=== PATIENT | male | born 1950 | race Caucasian/White ===

== ENCOUNTER 2017-03-06 11:25 | Outpatient (RCR) | payer OTHER | END 2017-03-17 | disposition home or self-care (01) | PROVIDERS: ATTEND Orthopaedic Surgery Sports Medicine | DX: M17.12 Unilateral primary osteoarthritis, left knee (principal) ==

== ENCOUNTER 2018-11-02 09:55 | Emergency (ER) | payer MEDICARE, OTHER ==
[~2018-11-02] VITALS: Ht 177.8 cm; Wt 90.7 kg
--- NOTE | 2018-11-02 10:59 | ED Lower Extremity ---
General Chief Complaint: Lower Extremity Stated Complaint: FALL - R KNEE / R SHOULDER PAIN Nursing Triage Note: PT TO RM 4 BY WHEELCHAIR WITH COMPLAINT OF RIGHT SHOULDER AND KNEE PAIN. PT STATES HE FELL SUNDAY AFTER A DOG GOT BETWEEN HIS FEET. STATES PAIN IS INCREASING IN KNEE. Nursing Sepsis Screen: No Definite Risk Source: patient, family Exam Limitations: no limitations History of Present Illness Date Seen by Provider: November 02, 2018 Time Seen by Provider: 10:55 Initial Comments This 67-year-old white male presents after he sustained an injury to his previously injured right knee when he fell up steps 2 days ago. Patient also sustained a contusion to the right shoulder with self-limited discomfort to the area. The patient's previous right knee injury 30 years ago required orthopedic cantu rgery. The patient does not know what he injury at that time. The patient's pain is been severe enough that he is unable to partially weight- bear and crutch walk. At this time patient's pain is limited to the right knee. It is painful over the anterior aspect of the right knee. He is unable to describe any specific instability in the right knee. He has a normal strength and sensation in the right lower extremity. Allergies and Home Medications Allergies Coded Allergies: Penicillins (Verified Allergy, Unknown, 11/02/18) pantoprazole (Verified Allergy, Unknown, 11/02/18) Patient Home Medication List Home Medication List Reviewed: Yes Review of Systems Constitutional: no symptoms reported EENTM: no symptoms reported Respiratory: no symptoms reported Cardiovascular: no symptoms reported Gastrointestinal: no symptoms reported Genitourinary: no symptoms reported Musculoskeletal: see HPI, joint pain (right knee) Skin: No change in color, No rash Psychiatric/Neurological: No Symptoms Reported Past Oelwtnu-Niobxl-Qabsod Hx Past Med/Social Hx: Reviewed Nursing Past Med/Soc Hx Patient Social History Alcohol Use: Occasionally Uses Recreational Drug Use: No Smoking Status: Former Smoker Recent Foreign Travel: No Contact w/Someone Who Travel: No Recent Infectious Disease Expo: No Recent Hopitalizations: No Immunizations Up To Date Tetanus Booster (TDap): Unknown Seasonal Allergies Seasonal Allergies: No Past Medical History Surgeries: Yes Appendectomy, Orthopedic, Vasectomy Respiratory: Yes COPD Cardiac: Yes (HEART DISEASE) Neurological: Yes (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 oz. [id number]; BMI Method:Stated General Appearance: WD/WN, mild distress HEENT: normal ENT inspection Neck: normal inspection Cardiovascular: regular rate, rhythm Respiratory: lungs clear Gastrointestinal: normal bowel sounds Knees: right knee joint effusion, right knee soft tissue tenderness, right knee swelling, right knee other (there is no gross instability on very limited examination of the patient's collaterals and menisci. The patient's swelling and pain precluded an adequate exam.) Neurologic/Psychiatric: no motor/sensory deficits, normal mood/affect Skin: normal color, warm/dry Progress/Results/Core Measures Results/Orders My Orders Orders - INDY DONIS MD Oxycodone/Apap 5/325mg Tablet (Percocet (11/02/18 11:00) Knee, Right, 3 Views (11/02/18 10:53) Medications Given in ED Current Medications Medications Dose Ordered Sig/Dave Route Start Time Stop Time Status Last Admin Dose Admin Oxycodone/ Acetaminophen 2 tab ONCE ONCE PO 11/02/18 11:00 11/02/18 11:01 DC 11/02/18 11:31 2 TAB Vital Signs/I&O 11/02/18 10:23 Pulse 98 Resp 20 B/P (MAP) 120/67 (84) Pulse Ox 95 O2 Delivery Room Air Blood Pressure Mean: 84 Progress Progress Note : Time: 12:40 Progress Note X-ray demonstrated degenerative changes as well as a significant effusion nodding radiographic examination of the right knee. Patient received 50 g fentanyl with significant improvement in his pain. Patient was instructed to use walker for partial weightbearing. He was asked to employee Percocet for pain. He was asked problems with orthopedic surgeon by calling the office on Sunday for further evaluation as soon as possible. Possibility that he will require an MRI for further evaluation was discussed. Departure Impression Primary Impression: Effusion, right knee Disposition: HOME, SELF-CARE Condition: Improved Departure-Patient Inst. Decision time for Depature: 12:42 Referrals: NO,LOCAL PHYSICIAN (PCP) Primary Care Physician Patient Instructions: Ligament Injuries in the Knee (DC) Add. Discharge Instructions: Medications prescribed. Follow-up with your orthopedic surgeon as soon as possible. Walker for limited weightbearing. Return if any problems or questions All discharge instructions reviewed with patient and/or family. Voiced understanding. INDY DONIS MD November 02, 2018 10:59
[2018-11-02] MEDS ORDERED: oxyCODONE/APAP 5/325MG (PERCOCET 5) TABLET PO ONE (11:00)
--- NOTE | 2018-11-02 11:55 | Diagnostic Imaging Report ---
Indication: Fall with right knee pain AP, oblique, and lateral views of the right knee are obtained. No fracture or acute bony abnormality is seen. There is chondrocalcinosis. There is medial and lateral joint space narrowing with patellofemoral spurring and joint space narrowing. There is a joint effusion in the suprapatellar recess. IMPRESSION: Tricompartmental osteoarthritic changes as described above with evidence of joint effusion. No acute fracture visualized. There is chondrocalcinosis. Dictated by: Dictated on workstation # [id number]
[2018-11-02 12:56] VITALS: BP 126/72
== END 2018-11-02 12:56 | disposition home or self-care (01) ==
LOC: EDUNIT# 09:55 → ER 09:57
DX: M25.461 Effusion, right knee (principal); J44.9 Chronic obstructive pulmonary disease, unspecified; G20 Parkinson's disease; Z88.0 Allergy status to penicillin; Z88.8 Allergy status to other drugs, medicaments and biological substances; Z87.891 Personal history of nicotine dependence; Z90.49 Acquired absence of other specified parts of digestive tract; Z98.890 Other specified postprocedural states; Z98.52 Vasectomy status; W10.8XXA Fall (on) (from) other stairs and steps, initial encounter
CPT/HCPCS: 73562

== ENCOUNTER → 2019-10-27 | Outpatient (CLI) | payer MEDICARE, OTHER ==
--- NOTE | 2019-10-27 12:03 | Diagnostic Imaging Report ---
CT CHEST SCREENING WO TECHNIQUE: Low-dose unenhanced CT of the chest was performed according to the screening protocol. Coronal MIP and sagittal MPR reformats are created. Automatic exposure controls were utilized to keep dose as low as reasonably achievable. INDICATION: 68-year-old with 50 pack-year history smoking. COMPARISON: None available. FINDINGS: Pulmonary findings: Small focus of retained secretion in the trachea. There are multifocal areas of peribronchial wall thickening and bronchiolectasis involving all 5 lobes. Severe centrilobular emphysema is present. Centrilobular micronodules are present with areas of bronchiolectasis. There is also area of nodular spiculation in the lingula measuring approximately 9 mm in diameter (image 96, series 2). There is also a somewhat spiculated area of nodularity and architectural distortion in the right upper lung zone measuring approximately 9 mm (image 72, series 6). No pulmonary mass. Biapical subpleural scarring. Extrapulmonary findings: No axillary lymphadenopathy. No mediastinal, discrete hilar or juxtaphrenic lymphadenopathy. Heart is normal in size without pericardial effusion. Distal esophagus is normal in appearance. Normal caliber thoracic aorta. There are few scattered coronary artery calcifications. Partially imaged hypodensity in the upper pole left kidney that highly likely represents a cyst and requires no dedicated followup imaging based on this appearance. IMPRESSION: 1. Changes throughout both lungs which are likely due to sequelae of prior infection, and potentially a nontuberculous mycobacterial infection. There are 2 areas of spiculated nodularity associated with the areas of presumed postinfectious change, these are likely areas of nodular scarring. Recommend follows low-dose CT chest in 6 months to confirm stability. Lung-RADS category: 3 - Probably Benign Dictated by: Dictated on workstation # [id number]
== END ==
LOC: RAD 09:53
PROVIDERS: ATTEND Nurse Practitioner
DX: Z12.2 Encounter for screening for malignant neoplasm of respiratory organs (principal); R91.8 Other nonspecific abnormal finding of lung field; Z87.891 Personal history of nicotine dependence

== ENCOUNTER → 2019-11-28 | Outpatient (CLI) | payer MEDICARE, OTHER ==
[~2019-11-28] VITALS: Ht 177.8 cm; Wt 84.0 kg
[2019-11-28] VITALS (15 sets, daily range): BP systolic 96–113; BP diastolic 47–57
[~2019-11-28] MED LIST: ATROPINE INJECTION 1 MG/10 ML SYR (ABBOTT) ONE; NS IV 1000 ML 1,000 ML IV SCH
--- NOTE | 2019-11-28 08:35 | NUR ---
SPOKE WITH PT REPORTS TAKING HIS FLURONEF PILL AND 2 OTHERS WITH SIP OF COFFEE AT 0430,PLAN TO PROCEED WITH TILT TABLE TEST. Addendum: 11/28/19 at 1136 by TITO EPSTEIN RN alma
== END ==
LOC: CARD 08:18
PROVIDERS: ATTEND Internal Medicine Interventional Cardiology
DX: R55 Syncope and collapse (principal)
CPT/HCPCS: 93660

== ENCOUNTER 2019-12-04 17:47 | Emergency (ER) | payer MEDICARE, OTHER ==
[~2019-12-04] VITALS: Ht 177 cm; Wt 87.0 kg
--- NOTE | 2019-12-04 17:49 | NUR ---
PT ARRIVED PER EMS W CPR AND COMBITUBE IN PLACE. PT HAS SL IN R AC #20 BY EMS. PT HAS IO IN L TIBIA BY EMS. PT HAD RECIEVED SHOCK X1 AND EPI X5 PER EMS AND NARCAN. UPON ARRIVAL CPR CONT. 1753 1MG EPPI GIVEN IV. [address] WALLIS. +COLOR CHANGE, BILAT LUNG SOUNDS NOTED. 175 PULSE CHECK NO PULSE PT ASYSTOLE. COMPRESSION RESUMED. 1757 1MG EPPI GIVEN CPR CONT. 1759 PULSE CHECK ASYSTOLE, NO PULSE COMPRESSIONS RESUMED. 1800 CALCIUM CHLORIDE 1 AMP AND 1 AMP BICARB GIVEN IV. 1802 PULSE CHECK ASYSTOLE AND NO PULSE. COMPRESSION RESUMED 180 1L BOLUS NS STARTED EPPI 1MG GIVEN IV. 1805 ETCO2-26. 1807 PULSE CHECK NO PULSE, ASYSTOLE. DR MONTAÑO TIME OF 1806
[2019-12-04] MEDS ORDERED: CATHETER FLUSH 10 ML SYR IV ONE (17:52)
[2019-12-04] MEDS ORDERED: SODIUM BICARB 8.4% 50 MEQ/50 ML (ABBOTT) SYR INJ ONE (17:52)
[2019-12-04] MEDS ORDERED: CALCIUM CHLORIDE 1 GM/10 ML (IMS) SYR INJ ONE (17:52)
[2019-12-04] MEDS ORDERED: EPINEPHrine 0.1 MG/ML 10 ML (HOSPIRA) SYR IJ ONE (17:52)
--- NOTE | 2019-12-04 18:19 | ED CPR ---
HPI-CPR General Chief Complaint: Code Blue Stated Complaint: CODE BLUE Source of Information: Patient Exam Limitations: Other (orotracheally intubated) History of Present Illness Date Seen by Provider: Dec 04, 2019 Time Seen by Provider: 17:45 Initial Comments Patient suffered witnessed cardiac arrest by family at home. EMS was summonsed and arrived at roughly 1740. I gel was placed, right antecubital space IV was placed and interosseous device was placed in the left tibia. IV fluids were initiated normal saline and EMS says that he had asystole and no pulse when they arrived so they initiated CPR immediately. Family states that he was told earlier in the day by his doctor at the [facility] after some lab was drawn that his hemoglobin is 3.3 and he needed to report to the ER promptly. EMS gave a dose of Narcan with no effect.. Obtained from the [facility] showing the patient has Parkinson's. Saw Dr. Hooks last month and started on Florinef. Allergies and Home Medications Allergies Coded Allergies: Penicillins (Verified Allergy, Unknown, 11/02/18) pantoprazole (Verified Allergy, Unknown, 11/02/18) Patient Home Medication List Home Medication List Reviewed: Yes Review of Systems Review of Systems Constitutional: see HPI (patient does not contribute to history or review of systems secondary to being orotracheally intubated and ) Past Waocvma-Zumbxg-Dipghk Hx Patient Social History Type Used: Cigarettes Recent Hopitalizations: No Immunizations Up To Date Tetanus Booster (TDap): Unknown Date of Pneumonia Vaccine: Jun 29, 2017 Date of Influenza Vaccine: Mar 18, 2019 Seasonal Allergies Seasonal Allergies: No Past Medical History Surgeries: Yes Appendectomy Respiratory: Yes Sleep Apnea, COPD, Emphysema Cardiac: Yes ([place]OPE) Neurological: Yes (PARKINSONS) Parkinson's Disease Genitourinary: No Gastrointestinal: Yes Gastroesophageal Reflux, Polyps Musculoskeletal: Yes Arthritis Endocrine: No HEENT: No Cancer: No Psychosocial: No Integumentary: No Blood Disorders: No Physical Exam Vital Signs Capillary Refill : Height, Weight, BMI Height: 5'10.00" Weight: 200lbs. oz. 90.247700as; 26.57 BMI Method:Stated General Appearance: Chronically ill, Severe Distress HEENT: No Moist Mucous Membranes; Other (pupils fixed 3 mm, nonreactive) Neck: Full Range of Motion, Normal Inspection Respiratory: Respiratory Distress (severe), Other (intermediate airway device in place with tracheal leak audible with bag-valve ventilation) Cardiovascular: Other (CPR underway and no palpable pulse on pulse check) Gastrointestinal: Soft, Abnormal Bowel Sounds (absent) Neurologic/Psychiatric: Other (GCS 3T) Skin: Warm/Dry, Pallor Progress/Results/Core Measures Progress Progress Note : Time: 18:34 Progress Note Called and got a hold of Emma Reynolds, his spouse. Informed her of the situation and she gave appreciation for our efforts and said that this was not unexpected. They did not have any home arrangements predetermined. She is not awake for her son to get here from [place] he is Joe on his way. When he arrives at her house then they will come together to the ER. We did offer chaplains assistance to call them or visit with her and she declined. All questions were answered. We encouraged her to call if she had any further co ncerns. She says she will be reachable at her home phone as listed in the patient's chart. Critical Care Note Critical Care Start Time: 17:45 Stop Time: 18:07 Total Time (minutes) 22min Date of : Dec 04, 2019 Time of : 18:07 Progress Pulse check on arrival shows asystole with no pulse. Compressions were resumed. The patient had received 5 doses of epinephrine by the time they arrived. 1753: Initial intubation attempt and 1 mg epinephrine was pushed. 1754 positive color change and fogging of tube with good breath sounds bilaterally. 1756 pulse check asystole. Compressions were resumed. 1757 1 mg of epinephrine for a total of 7 mg 1759 pulse check asystole resumed compressions 1800 calcium chloride and amp of bicarbonate administered. 1802 pulse check asystole compressions resumed. 1803 1 L bolus of normal saline started for a total 2 L now. 1 mg epinephrine administered. 1806: End-tidal CO2 of 26. 2 units of O- arrived and the rapid infuser set up and infusing the second liter of normal saline. 1807 pulse check demonstrates no pulse patient still in asystole. It was decided to preserve the O- blood as these efforts were futile and the code was called. Departure Impression Primary Impression: Cardiopulmonary arrest Additional Impression: Profound anemia Qualified Codes: D64.9 - Anemia, unspecified Disposition: 20 Condition: Departure-Patient Inst. Decision time for Depature: 18:15 Patient Instructions: NO INSTRUCTIONS GIVEN MINISTERIO WALLIS J Dec 04, 2019 18:19
--- NOTE | 2019-12-04 19:22 | NUR ---
Family in room at this time.
--- NOTE | 2019-12-04 19:39 | NUR ---
Requested registration call [facility] at this time.
--- NOTE | 2019-12-04 19:50 | NUR ---
Spoke to Patti from [facility]. [facility] needs additional past medical history from family before a decision can be made regarding organ donation.
--- NOTE | 2019-12-04 20:12 | NUR ---
[facility]
[2019-12-04 21:22] VITALS: BP 0/0
--- OUTSIDE RECORDS SUMMARY | 2019-12-04 21:54 | XMS REPORT | Clinical Summary ---
Author Author [facility] Organization [facility] Address Unknown Phone Unavailable Care Team Providers Care [employer] Electrician Name Role Phone Doctor, Miscellaneous Unavailable Unavailable No Pcp, Na PCP Unavailable Source Comments Some departments are not documenting in the electronic medical record. If you d o not see the information that you expected, contact Release of Information in [facility] [employer] Information Management department at [phone] for further assistan ce in locating additional records.[facility] Allergies Not on File Medications Not on file Active Problems Not on file Social History Date Tobacco Use Types Packs/Day Years Used Never Assessed Sex Assigned at Date Recorded Not on file Industry Job Start Date Occupation Not on file Not on file Not on file Travel End Travel History Travel Start No recent travel history available. Last Filed Vital Signs Not on file Plan of Treatment Health Maintenance Due Date Last Done Comments MEDICARE ANNUAL WELLNESS 1950 VISIT DTAP/TDAP VACCINES (1 - 12/19/1967 Tdap) HEPATITIS C SCREENING 12/19/1967 PHYSICAL (COMPREHENSIVE) 12/19/1967 EXAM COLORECTAL CANCER 12/19/1999 SCREENING SHINGLES RECOMBINANT 12/19/1999 VACCINE (1 of 2) PNEUMONIA (PPSV23) 2014 VACCINE (1 of 1 - PPSV23) INFLUENZA VACCINE 03/18/2020 Results Not on filefrom Last 3 Months Insurance Type Payer Benefit Subscriber ID Effective Phone Address Plan / Dates Group Medicare MEDICARE MEDICARE xxxxxxxxxx [id number] PART A AND resent B PPO EQUITABLE LIFE & CASUALTY EQUITABLE xxxxxxx 2015-P LIFE & resent CASUALTY [id number] Advance Directives Patient [employer] Crew[employer] Explanation Type Date Recorded Advance 05/31/2015 3:40 PM Directive/DPOA
--- OUTSIDE RECORDS SUMMARY | 2019-12-04 21:54 | XMS REPORT | Continuity of Care Document ---
Author [facility] Organization [facility] Address Unknown Phone Unavailable Care Team Providers Care Billing Administrator Name Role Phone [facility] Unavailable Unavailable Problems Combined list of all problems from all Department of Defense and [facility] facilities. It does not include entries that were removed or entered in error. Problem Status Onset Date Problem Type Date of Resolution Comments Source Abnormal radiologic density Active Condition [facility] Allergic rhinitis Active Condition [facility] Anemia Active Condition [facility] Chest pain (SNOMED CT [id number]) Active Condition [facility] Chondrocalcinosis Active Condition [facility] Chronic obstructive lung disease Active Condition [facility] Coronary artery disease Active Condition [facility] Cough Active Condition [facility] Cough (SNOMED CT 72006011) Active Condition [facility] Dysarthria (SNOMED CT 2553719) Active Condition [facility] Dyspnea (SNOMED CT 258866420) Active Condition [facility] Eruption due to drug Active Condition [facility] Gastroesophageal reflux disease Active Condition [facility] Hallux valgus AND bunion Active Condition [facility] Joint pain (SNOMED CT 86210640) Active Condition [facility] Joint swelling (SNOMED CT 815121584) Active Condition [facility] Knee pain Active Condition [facility] Muscle weakness (SNOMED CT 31272054) Active Condition [facility]uropathy Active Condition [facility] Osteoarthritis Active Condition [facility] Parkinson's disease Active Condition [facility] Peripheral Neuropathy Active Condition [facility] Personal History of Exposure to Agent Golden Active Condition [facility] Polyp of colon (SNOMED CT 72164983) Active Condition [facility] Restless legs Active Condition [facility] Rheumatoid arthritis Active Condition [facility] Screening, Malignancy Active Condition [facility] Sleep apnea Active Condition [facility] Synovial cyst of popliteal space (SNOMED CT 01053466) Active Condition [facility] Tobacco dependence in remission Active Condition [facility] Tobacco use Active Condition [facility] Tremor Active Condition [facility] Unresolved Active Condition [facility] Unresolved Active Condition [facility] ICD-10-CM D64.9 Anemia, unspecified with Provider Comments: Anemia (SNOMED CT 346802614) active Diagnosis [facility] ICD-10-CM G20. Parkinson's disease with Provider Comments: Parkinson's disease ([facility] [id number]) active Diagnosis [facility] ICD-10-CM M06.9 Rheumatoid arthritis, un specified with Provider Comments: Rheumatoid arthritis ([facility] 65085072) active Diagnosis [facility] ICD-10-CM M06.09 Rheumatoid arthritis w/ o rheumatoid factor, multiple sites with Provider Comments: Seronegative RA active Diagnosis [facility] ICD-10-CM I25.10 Athscl heart disease of [place] coronary artery w/o ang pctrs with Provider Comments: Coronary artery disease ([facility] [id number]) active Diagnosis [facility] ICD-10-CM Z71.89 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 with Provider Comments: Counseling,Oth Specified active Diagnosis [facility] ICD-10-CM H26.8 Other specified cataract with Provider Comments: Other specified Cataract active Diagnosis [facility] ICD-10-CM Z13.6 Encounter for screening for cardiovascular disorders with Provider Comments: Encounter for Screening for Cardiovascular Disorders active Diagnosis [facility] ICD-10-CM M19.011 Primary osteoarthritis , right shoulder with Provider Comments: Primary osteoarthritis, right shoulder active Diagnosis [facility] ICD-10-CM J44.9 Chronic obstructive pulm onary disease, unspecified with Provider Comments: Chronic Obstructive Pulmonary Disease, unspecified active Diagnosis [facility] ICD-10-CM R91.8 Other nonspecific abnorm al finding of lung field with Provider Comments: Abnormal radiologic density (SNOMED CT 18877997) active Diagnosis [facility] ICD-10-CM R91.8 Other nonspecific abnorm al finding of lung field with Provider Comments: Abnormal Finding of Lung Field active Diagnosis [facility] ICD-10-CM H90.3 Sensorineural hearing lo ss, bilateral with Provider Comments: Sensorineural hearing loss, bilateral active Diagnosis [facility] Medications Combined list of all outpatient medications recorded within the last 15 months b y all Department of Defense and Veterans Affairs facilities, and also all patien t-reported medications. Medication Details Route Status Patient Instructions Prescription Expires Prescript ion Number Last Dispense Date Ordering Pr ovider Order Date Source ALBUTEROL SO4 0.083% INHL,3ML USE 3 MLS (1 AMPULE) IN NEBULIZER FOR INHALATION ONCE 11/16/2018 [id number] 10/17/2018 KOURTNEY DANIELSON 10/17/2018 [facility] ALBUTEROL SO4 90MCG/ACTUAT (CFC-F) INHL,ORAL,6.7GM INHALE 2 PUFFS BY ORAL INHALATION FOUR TIMES A DAY NEEDED - RINSE MOUTHPIECE FREQUENTLY TO PREVENT CLOGGING ACTIVE 04/24/2020 [id number] 10/18/2019 KOURTNEY DANIELSON 10/18/2019 [facility] ALBUTEROL SO4 90MCG/ACTUAT (CFC-F) INHL,ORAL,6.7GM INHALE 2 PUFFS BY ORAL INHALATION FOUR TIMES A DAY NEEDED - RINSE MOUTHPIECE FREQUENTLY TO PREVENT CLOGGING DISCONTINUE 04/24/2020 [id number] 04/24/2019 KOURTNEY DANIELSON 04/24/2019 [facility] BUDESONIDE 160MCG/FORMOTEROL FUM 4.5MCG/ SPRAY INHL,ORAL,10.2GM INHALE 2 PUFFS BY ORAL INHALATION TWO TI MES A DAY FOR BREATHING. SHAKE WELL. RINSE MOUTH AND SPIT AFTER EACH USE. ACTIVE 12/2019 [id number] 10/17/2019 KOURTNEY DANIELSON 04/24/2019 [facility] CALCIUM 500MG (CA CARBONATE-1.25GM) TAB TAKE ONE TABLET BY MOUTH TWO TIMES A DAY ACTIVE/SUSP 11/20/2020 [id number] 01/09/2020 KOURTNEY DANIELSON 01/09/2020 [facility] CALCIUM 500MG (CA CARBONATE-1.25GM) TAB TAKE ONE TABLET BY MOUTH TWO TIMES A DAY DISCONTINUE 01/08/2020 [id number] 10/21/2019 KOURTNEY DANIELSON 01/10/2019 [facility] CALCIUM 500MG (CA CARBONATE-1.25GM) TAB TAKE ONE TABLET BY MOUTH TWO TIMES A DAY DISCONTINUE 12/29/2018 [id number] 10/01/2018 NASH KULKARNI 10/01/2018 [facility] CARBIDOPA 25MG/LEVODOPA 100MG TAB TAKE 2 TABLETS BY MOUTH FOUR TIMES A DAY FOR PARKINSON'S DISEASE. DO NOT TAKE WITH FOOD. ACTIVE 11/24/2020 [id number] 11/27/2019 ALLEGRA HOWE 11/27/2019 [facility] CARBIDOPA 25MG/LEVODOPA 100MG TAB TAKE TWO TABLETS BY MOUTH FIVE TIMES DAILY FOR PARKINSON'S DISEASE. DO NOT TAKE WITH FOOD. DISCONTINUE 07/02/2020 [id number] 11/19/2019 KOURTNEY DANIELSON 07/03/2019 [facility] CARBIDOPA 25MG/LEVODOPA 100MG TAB TAKE 2 TABLETS BY MOUTH FIVE TIMES DAILY FOR PARKINSON'S DISEASE. DO NOT TAKE WITH FOOD. DISCONTINUED (EDIT) 06/30/2020 [id number] 07/01/2019 ALLEGRA HOWE 07/01/2019 [facility] CARBIDOPA 25MG/LEVODOPA 100MG TAB TAKE 2 TABLETS BY MOUTH FOUR TIMES A DAY FOR PARKINSON'S DISEASE. DO NOT TAKE WITH FOOD. DISCONTINUE 06/24/2020 [id number] 06/26/2019 KOURTNEY DANIELSON 06/26/2019 [facility] CARBIDOPA 25MG/LEVODOPA 100MG TAB TAKE 2 TABLETS BY MOUTH FOUR TIMES A DAY FOR PARKINSON'S DISEASE. DO NOT TAKE WITH FOOD. DISCONTINUE 12/25/2019 [id number] 05/15/2019 KOURTNEY DANIELSON 12/26/2018 [facility] CARBIDOPA 25MG/LEVODOPA 100MG TAB TAKE 2 TABLETS BY MOUTH FOUR TIMES A DAY FOR PARKINSON'S DISEASE. DO NOT TAKE WITH FOOD. DISCONTINUE 06/07/2019 [id number] 11/18/2018 ALLEGRA HOWE 06/10/2018 [facility] CHOLECALCIFEROL 25MCG (1,000UNIT) TAB TAKE TWO TABLETS BY MOUTH ONCE A DAY FOR VITAMIN D DEFICIENCY ACTIVE/SUSP 11/20/2020 [id number] 01/09/2020 KOURTNEY DANIELSON 01/09/2020 [facility] CHOLECALCIFEROL 25MCG (1,000UNIT) TAB TAKE TWO TABLETS BY MOUTH ONCE A DAY FOR VITAMIN D DEFICIENCY DISCONTINUE 12/25/2019 [id number] 10/21/2019 KOURTNEY DANIELSON 12/25/2018 [facility] CHOLECALCIFEROL 25MCG (1,000UNIT) TAB TAKE TWO TABLETS BY MOUTH ONCE A DAY FOR VITAMIN D DEFICIENCY DISCONTINUE 10/10/2018 [id number] 09/12/2018 KOURTNEY DANIELSON 10/09/2017 [facility] CLOPIDOGREL BISULFATE 75MG TAB TAKE ONE TABLET BY MOUTH ONCE A DAY TO PREVENT BLOOD CLOTS ACTIVE/SUSP 04/24/2020 [id number] 12/19/2019 KOURTNEY DANIELSON 05/25/2019 [facility] CLOPIDOGREL BISULFATE 75MG TAB TAKE ONE TABLET BY MOUTH ONCE A DAY TO PREVENT BLOOD CLOTS DISCONTINUE 06/01/2019 [id number] 03/13/2019 KOURTNEY DANIELSON 06/03/2018 [facility] DIPHENHYDRAMINE HCL 25MG CAP T GABRIELLE 1 CAPSULE BY MOUTH EVERY 6 HOURS NEEDED ACTIVE KOURTNEY DANIELSON 03/21/2017 [facility] FLUDROCORTISONE ACETATE 0.1MG TAB TAKE ONE TABLET BY MOUTH ONCE A DAY ACTIVE 11/19/2020 [id number] 11/20/2019 KOURTNEY DANIELSON 11/20/2019 [facility] FOLIC ACID 1MG TAB TAKE ONE TA BLET BY MOUTH ONCE A DAY ACTIVE KOURTNEY DANIELSON 12/29/2015 [facility] GABAPENTIN 300MG CAP TAKE 1 CA PSULE BY MOUTH 5 TIMES A DAY FOR PAIN AND TREMORS. ACTIVE 10/17/2020 [id number] 10/18/2019 KOURTNEY DANIELSON 10/18/2019 [facility] GABAPENTIN 300MG CAP TAKE ONE CAPSULE BY MOUTH FOUR TIMES A DAY FOR PAIN AND TREMORS. DISCONTINUED (EDIT) 01/08/2020 [id number] 10/14/2019 KOURTNEY DANIELSON 02/26/2019 [facility] GABAPENTIN 300MG CAP TAKE ONE CAPSULE BY MOUTH FOUR TIMES A DAY FOR PAIN AND TREMORS. DISCONTINUE 03/08/2019 [id number] 01/07/2019 KOURTNEY DANIELSON 03/07/2018 [facility] HYDROCODONE 10MG/ACETAMINOPHEN 325MG TAB TAKE ONE TABLET (10/325MG) BY MOUTH THREE TIMES A DAY NEEDED FOR PAIN CAUTION: DO NOT EXCEED 4000MG/DAY TOTAL OF ACETAMINOPHEN (APAP) FROM ALL MEDS ACTIVE 12/20/2019 [id number] 11/21/2019 KOURTNEY DANIELSON 11/21/2019 [facility] HYDROCODONE 10MG/ACETAMINOPHEN 325MG TAB TAKE ONE TABLET (10/325MG) BY MOUTH THREE TIMES A DAY NEEDED FOR PAIN CAUTION: DO NOT EXCEED 4000MG/DAY TOTAL OF ACETAMINOPHEN (APAP) FROM ALL MEDS DISCONTINUED 10/03/2019 [id number] 09/04/2019 KOURTNEY DANIELSON 09/04/2019 [facility] HYDROCODONE 10MG/ACETAMINOPHEN 325MG TAB TAKE ONE TABLET BY MOUTH THREE TIMES A DAY NEEDED FOR PAIN CAUTION: DO NOT EXCEED 4000MG/DAY TOTAL OF ACETAMINOPHEN (APAP) FROM ALL MEDS DISCONTINUED 07/26/2019 [id number] 06/26/2019 KOURTNEY DANIELSON 06/26/2019 [facility] HYDROCODONE 10MG/ACETAMINOPHEN 325MG TAB TAKE ONE TABLET BY MOUTH THREE TIMES A DAY NEEDED FOR PAIN CAUTION: DO NOT EXCEED 4000MG/DAY TOTAL OF ACETAMINOPHEN (APAP) FROM ALL MEDS DISCONTINUE 06/27/2019 [id number] 05/29/2019 KOURTNEY DANIELSON 05/29/2019 [facility] HYDROCODONE 10MG/ACETAMINOPHEN 325MG TAB TAKE ONE TABLET BY MOUTH THREE TIMES A DAY NEEDED FOR PAIN CAUTION: DO NOT EXCEED 4000MG/DAY TOTAL OF ACETAMINOPHEN (APAP) FROM ALL MEDS DISCONTINUED 05/08/2019 [id number] 04/08/2019 KOURTNEY DANIELSON 04/08/2019 [facility] HYDROCODONE 10MG/ACETAMINOPHEN 325MG TAB TAKE ONE TABLET BY MOUTH THREE TIMES A DAY NEEDED FOR PAIN CAUTION: DO NOT EXCEED 4000MG/DAY TOTAL OF ACETAMINOPHEN (APAP) FROM ALL MEDS DISCONTINUED 03/28/2019 [id number] 02/26/2019 KOURTNEY DANIELSON 02/26/2019 [facility] HYDROCODONE 10MG/ACETAMINOPHEN 325MG TAB TAKE ONE TABLET BY MOUTH THREE TIMES A DAY NEEDED FOR PAIN CAUTION: DO NOT EXCEED 4000MG/DAY TOTAL OF ACETAMINOPHEN (APAP) FROM ALL MEDS DISCONTINUED 02/06/2019 [id number] 01/07/2019 KOURTNEY DANIELSON 01/07/2019 [facility] HYDROCODONE 10MG/ACETAMINOPHEN 325MG TAB TAKE ONE TABLET BY MOUTH THREE TIMES A DAY NEEDED FOR PAIN CAUTION: DO NOT EXCEED 4000MG/DAY TOTAL OF ACETAMINOPHEN (APAP) FROM ALL MEDS DISCONTINUED 12/05/2018 [id number] 11/05/2018 KOURTNEY DANIELSON 11/05/2018 [facility] HYDROCODONE 10MG/ACETAMINOPHEN 325MG TAB TAKE ONE TABLET BY MOUTH THREE TIMES A DAY NEEDED FOR PAIN CAUTION: DO NOT EXCEED 4000MG/DAY TOTAL OF ACETAMINOPHEN (APAP) FROM ALL MEDS DISCONTINUED 10/25/2018 [id number] 09/25/2018 KOURTNEY DANIELSON 09/25/2018 [facility] HYDROCODONE 10MG/ACETAMINOPHEN 325MG TAB TAKE ONE TABLET (10/325MG) BY MOUTH THREE TIMES A DAY NEEDED FOR PAIN CAUTION: DO NOT EXCEED 4000MG/DAY TOTAL OF ACETAMINOPHEN (APAP) FROM ALL MEDS 11/16/2019 [id number] 10/18/2019 KOURTNEY DANIELSON 10/18/2019 [facility] METHOTREXATE NA 2.5MG TAB TAKE SEVEN TABLETS BY MOUTH EVERY WEEK ACTIVE 10/17/2020 [id number] 11/04/2019 KOURTNEY DANIELSON 11/04/[address] [facility] METHOTREXATE NA 2.5MG TAB TAKE SEVEN TABLETS BY MOUTH EVERY WEEK DISCONTINUE 05/09/2020 [id number] 08/16/2019 NASH KULKARNI 05/13/2019 [facility] METHOTREXATE NA 2.5MG TAB TAKE SEVEN TABLETS BY MOUTH EVERY WEEK DISCONTINUE 08/04/2019 [id number] 02/22/2019 YOU GOMEZ 10/19/2018 [facility] NORTRIPTYLINE HCL 10MG CAP PURA E 2 CAPSULES BY MOUTH AT BEDTIME NEEDED ACTIVE 04/02/2020 [id number] 11/20/2019 KOURTNEY DANIELSON 04/04/2019 [facility] NORTRIPTYLINE HCL 10MG CAP PURA E 2 CAPSULES BY MOUTH AT BEDTIME NEEDED DISCONTINUE 03/20/2019 [id number] 01/23/2019 KOURTNEY DANIELSON 03/20/2018 [facility] OMEPRAZOLE 20MG CAP,EC TAKE 1 CAPSULE BY MOUTH EVERY MORNING TO LOWER STOMACH ACID. TAKE 30 MINUTES PRIOR TO FOOD. ACTIVE 10/17/2020 [id number] 10/21/2019 KOURTNEY DANIELSON 10/21/2019 [facility] OMEPRAZOLE 20MG CAP,EC TAKE 1 CAPSULE BY MOUTH EVERY MORNING TO LOWER STOMACH ACID. TAKE 30 MINUTES PRIOR TO FOOD. DISCONTINUE 10/02/2019 [id number] 08/02/2019 KOURTNEY DANIELSON 10/01/2018 [facility] PREDNISONE 1MG TAB TAKE THREE TABLETS BY MOUTH ONCE A DAY FOR INFLAMMATION AND IMMUNE RESPONSE. TAKE WITH FOOD OR MILK. DISCONTINUE 07/23/2019 [id number] 04/24/2019 KOURTNEY DANIELSON 04/24/2019 [facility] PREDNISONE 1MG TAB TAKE FOUR T ABLETS BY MOUTH ONCE A DAY DISCONTINUED 04/22/2019 [id number] 01/24/2019 BLUE DAVIES 01/24/2019 [facility] PREDNISONE 1MG TAB TAKE FOUR T ABLETS BY MOUTH ONCE A DAY DISCONTINUED 12/29/2018 [id number] 10/01/2018 NASH KULKARNI 10/01/2018 [facility] PREDNISONE 1MG TAB TAKE THREE TABLETS BY MOUTH ONCE A DAY FOR INFLAMMATION AND IMMUNE RESPONSE. TAKE WITH FOOD OR MILK. 09/22/2019 [id number] 07/13/2019 KOURTNEY DANIELSON 07/13/2019 [facility] PREDNISONE 5MG TAB TAKE ONE TA BLET BY MOUTH ONCE A DAY WITH FOOD DISCONTINUED 08/01/2019 [id number] 09/25/2018 KOURTNEY DANIELSON 07/31/2018 [facility] ROPINIROLE HCL 1MG TAB TAKE ON E TABLET BY MOUTH AT BEDTIME ACTIVE 10/17/2020 [id number] 11/25/2019 KOURTNEY DANIELSON 11/25/[address] [facility] ROPINIROLE HCL 1MG TAB TAKE ON E TABLET BY MOUTH AT BEDTIME DISCONTINUE 12/05/2019 [id number] 09/03/2019 KRYSTAL DEJESUS D 12/10/2018 [facility] ROPINIROLE HCL 1MG TAB TAKE ON E TABLET BY MOUTH AT BEDTIME DISCONTINUE 12/13/2018 [id number] 09/12/2018 KOURTNEY DANIELSON 12/19/2017 [facility] TAMSULOSIN HCL 0.4MG CAP TAKE 1 CAPSULE BY MOUTH ONCE A DAY FOR PROSTATE. TAKE AT THE SAME TIME EACH DAY WITH FOOD. ACTIVE/SUSP 09/30/2020 [id number] 12/20/2019 KOURTNEY DANIELSON 10/01/2019 [facility] TAMSULOSIN HCL 0.4MG CAP TAKE 1 CAPSULE BY MOUTH ONCE A DAY FOR PROSTATE. TAKE AT THE SAME TIME EACH DAY WITH FOOD. DISCONTINUE 09/13/2019 [id number] 06/24/2019 TEO,LIS 09/16/2018 [facility] Allergies, Adverse Reactions, Alerts Combined list of all allergies from all Department of Defense and Veterans Affairs facilities. It does not include entries that were removed or entered in error. Substance Category R eaction Severity Reaction type Status Date Reported Comments Source PANTOPRAZOLE Propensity to adverse reactions to drug (disorder) Eruption Propensity to adverse reactions to drug (disorder) active 10/01/2018 [facility], [facility] 15 PENICILLIN Propensity to adverse r eactions to drug (disorder) Peripheral edema Propensity to adverse reactions to drug (disorder) active 07/17/2012 [facility] 15 Immunizations Combined list of: 1) all immunizations on record at all [facility] ies, and 2) all available immunizations on record at Department of Defense (Do D) facilities. Some immunizations on record at [facility] may not be included. Immunization Series Date Given Administered By Site Reaction Lot Number CVX Code Drug Cigarette Inspector Status Comments Source INFLUENZA, TRIVALENT, ADJUVANTED 04/24/2019 168 completed [facility] PNEUMOCOCCAL POLYSACCHARIDE PPV23 04/24/2019 33 completed [facility] INFLUENZA, TRIVALENT, ADJUVANTED 03/19/2018 168 completed [facility] INFLUENZA, SEASONAL, INJECTABLE, PRESERVATIVE FREE 05/29/2017 140 completed [facility] INFLUENZA, SEASONAL, INJECTABLE, PRESERVATIVE FREE 05/02/2016 140 completed [facility] INFLUENZA, SEASONAL, INJECTABLE, PRESERVATIVE FREE 03/19/2015 140 completed [facility] PNEUMOCOCCAL CONJUGATE PCV 13 03/19/2015 133 completed [facility] INFLUENZA, SEASONAL, INJECTABLE, PRESERVATIVE FREE 04/30/2014 140 completed [facility] PNEUMOCOCCAL POLYSACCHARIDE PPV23 10/21/2013 33 completed [facility] INFLUENZA, SEASONAL, INJECTABLE, PRESERVATIVE FREE 07/30/2013 140 completed [facility] INFLUENZA, UNSPECIFIED FORMULATION 07/30/2013 KOURTNEY DANIELSON 88 completed [facility] TDAP (HISTORICAL) 07/30/2013 KOURTNEY DANIELSON 115 completed [facility] INFLUENZA, UNSPECIFIED FORMULATION 07/17/2012 88 completed [facility] TDAP (HISTORICAL) 07/17/2012 115 completed [facility] Results Combined list of recent chemistry, hematology and other laboratory results going back no more than 15 months from the Department of Defense and Veterans Affairs facilities. Order Name Results Value Reference Range Date Interpretation Specimen Comments Source FERRITIN FERRITIN [MASS/VOLUME] IN S [place] OR PLASMA 6 ng/mL 22 - 275 12/04/2019 L Specimen Type: SERUM No comment entered. [facility] LIPID PROFILE(HDL,TRIG,CHOL,LDL) CHOLESTEROL [MASS/VOLUME] IN SERUM OR PLASMA 75 mg/dL 0 - 200 12/04/2019 Specimen Type: PLASMA No comment entered. [facility] LIPID PROFILE(HDL,TRIG,CHOL,LDL) TRIGLYCERIDE [MASS/VOLUME] IN SERUM OR PLASMA 38 mg/dL 0 - 150 12/04/2019 Specimen Type: PLASMA No comment entered. [facility] LIPID PROFILE(HDL,TRIG,CHOL,LDL) CHOLESTEROL IN HDL [MASS/VOLUME] IN SERUM OR PLASMA 34 mg/dL 12/04/2019 L Specimen Type: PLASMA No comment entered. [facility] LIPID PROFILE(HDL,TRIG,CHOL,LDL) CHOLESTEROL IN LDL [MASS/VOLUME] IN SERUM OR PLASMA BY CALCULATION 33 mg/dL 0 - 99.9 12/04/2019 Specimen Type: PLASMA No comment entered. [facility] TSH THYROTROPIN [UNITS/VOLUME] IN SE RUM OR PLASMA 1.51 uIU/mL 0.47 - 5.00 12/04/2019 Specimen Type: SERUM No comment entered. [facility] PROSTATIC SPECIFIC ANTIGEN(TOTAL) PROSTATE SPECIFIC AG [MASS/VOLUME] IN SERUM OR PLASMA 1.68 ng/mL 0 - 4 12/04/2019 Specimen Type: SERUM No comment entered. [facility] VITAMIN D (25-OH) 24R-HYDROXYC ALCIDIOL [MASS/VOLUME] IN SERUM OR PLASMA 36.4 ng/mL 30.0 - 96.0 12/04/2019 Specimen Type: SERUM No comment entered. [facility] FOLATE FOLATE [MASS/VOLUME] IN SERUM OR PLASMA >40.0ng/mL 7.0 - 20.0 12/04/2019 H Specimen Type: SERUM No comment entered. [facility] VITAMIN B12 COBALAMIN (VITAMIN B12) [MASS/VOLUME] IN SERUM OR PLASMA 491 pg/mL 213 - 816 12/04/2019 Specimen Type: SERUM No comment entered. [facility] C-REACTIVE PROTEIN C REACTIVE PROTEIN [MASS/VOLUME] IN SERUM OR PLASMA 9.77 mg/dL 0.0 - 0.5 12/04/2019 H Specimen Type: SERUM No comment entered. [facility] COMPREHENSIVE METABOLIC PANEL CREATININE [MASS/VOLUME] IN SERUM OR PLASMA 1.01 mg/dL 0.7 - 1.3 12/04/2019 Specimen Type: PLASMA No comment entered. [facility] COMPREHENSIVE METABOLIC PANEL UREA NITROGEN [MASS/VOLUME] IN SERUM OR PLASMA 20 mg/dL 9 - 25 12/04/2019 Specimen Type: PLASMA No comment entered. [facility] COMPREHENSIVE METABOLIC PANEL GLUCOSE [MASS/VOLUME] IN SERUM OR PLASMA 81 mg/dL 72 - 99 12/04/2019 Specimen Type: PLASMA No comment entered. [facility] COMPREHENSIVE METABOLIC PANEL SODIUM [MOLES/VOLUME] IN SERUM OR PLASMA 136 mEq/L 136 - 145 12/04/2019 Specimen Type: PLASMA No comment entered. [facility] COMPREHENSIVE METABOLIC PANEL POTASSIUM [MOLES/VOLUME] IN SERUM OR PLASMA 4.4 mEq/L 3.5 - 5.0 12/04/2019 Specimen Type: PLASMA No comment entered. [facility] COMPREHENSIVE METABOLIC PANEL CALCIUM [MASS/VOLUME] IN SERUM OR PLASMA 8.5 mg/dL 8.4 - 10.4 12/04/2019 Specimen Type: PLASMA No comment entered. [facility] COMPREHENSIVE METABOLIC PANEL PROTEIN [MASS/VOLUME] IN SERUM OR PLASMA 6.4 g/dL 6.0 - 8.6 12/04/2019 Specimen Type: PLASMA No comment entered. [facility] COMPREHENSIVE METABOLIC PANEL ALBUMIN [MASS/VOLUME] IN SERUM OR PLASMA 3.3 g/dl 3.4 - 5.0 12/04/2019 L Specimen Type: PLASMA No comment entered. [facility] COMPREHENSIVE METABOLIC PANEL BILIRUBIN.TOTAL [MASS/VOLUME] IN SERUM OR PLASMA 0.7 mg/dL 0.2 - 1.2 12/04/2019 Specimen Type: PLASMA No comment entered. [facility] METABOLIC PANEL ASPARTATE AMINOTRANSFERASE [ENZYMATIC ACTIVITY/VOLUME] IN SERUM OR PLASMA 45 U/L 5 - 34 12/04/2019 H Specimen Type: PLASMA No comment entered. [facility] ALANINE AMINOTRANSFERASE [ENZYMATIC ACTIVITY/VOLUME] IN SERUM OR PLASMA 9 U/L 8 - 40 12/04/2019 Specimen Type: PLASMA No comment entered. [facility] COMPREHENSIVE METABOLIC PANEL CHLORIDE [MOLES/VOLUME] IN SERUM OR PLASMA 100 mEq/L 98 - 107 12/04/2019 Specimen Type: PLASMA No comment entered. [facility] COMPREHENSIVE METABOLIC PANEL "CARBON DIOXIDE, TOTAL [MOLES/VOLUME] IN SERUM OR PLASMA" 21 mEq/L 22 - 31 12/04/2019 L Specimen Type: PLASMA No comment entered. [facility] [facility] MET[facility] ALKALINE PHOSPHATASE [ENZYMATIC ACTIVITY/VOLUME] IN SERUM OR PLASMA 103 U/L 40 - 150 12/04/2019 Specimen Type: PLASMA No comment entered. [facility] METABOLIC PANEL GLOMERULAR FILTRATION RATE/1.73 SQ M.PREDICTED [VOLUME RATE/AREA] IN SERUM OR PLASMA BY CREATININE- BASED FORMULA (MDRD) 73.2 12/04/2019 Specimen Type: PLASMA No comment entered. [facility] CBC & DIFF LEUKOCYTES [#/VOLUM E] IN BLOOD BY AUTOMATED COUNT 8.08 K/cmm 3.60 - 11.20 12/04/2019 Specimen Type: BLOOD Comment: PANIC VALUE CALLED AND READ BACK by Kourtney Danielson @ 0650 [facility] CBC & DIFF ERYTHROCYTES [#/VOL UME] IN BLOOD BY AUTOMATED COUNT 1.83 M/ul 4.1 - 5.7 12/04/2019 L Specimen Type: BLOOD Comment: PANIC VALUE CALLED AND READ BACK by Kourtney Danielson @ 1635 [facility] CBC & DIFF HEMOGLOBIN [MASS/VOLUME] IN BLOOD 3.3 g/dl 13.1 - 16.8 12/04/2019 LL Specimen Type: BLOOD Comment: PANIC VALUE CALLED AND READ BACK by Kourtney Danielson @ 1635 [facility] CBC & DIFF HEMATOCRIT [VOLUME FRACTION] OF BLOOD BY AUTOMATED COUNT 12.1 % 38.2 - 48.4 12/04/2019 L Specimen Type: BLOOD Comment: PANIC VALUE CALLED AND READ BACK by Kourtney Danielson @ 1635 [facility] CBC & DIFF MCV [ENTITIC VOLUME] BY A UTOMATED COUNT 66.1 fl 80.1 - 98.5 12/04/2019 L Specimen Type: BLOOD Comment: PANIC VALUE CALLED AND READ BACK by Kourtney Danielson @ 1635 [facility] CBC & DIFF MCH [ENTITIC MASS] BY AUT OMATED COUNT 18.0 pg 27.0 - 34.0 12/04/2019 L Specimen Type: BLOOD Comment: PANIC VALUE CALLED AND READ BACK by Kourtney Danielson @ 1635 [facility] CBC & DIFF MCHC [MASS/VOLUME] BY AUT OMATED COUNT 27.3 g/dl 33.0 - 36.0 12/04/2019 L Specimen Type: BLOOD Comment: PANIC VALUE CALLED AND READ BACK by Kourtney Danielson @ 1635 [facility] CBC & DIFF PLATELETS [#/VOLUME ] IN BLOOD BY AUTOMATED COUNT 578 K/cmm 150 - 400 12/04/2019 H Specimen Type: BLOOD Comment: PANIC VALUE CALLED AND READ BACK by Kourtney Danielson @ 1635 [facility] CBC & DIFF PLATELET MEAN VOLUM E [ENTITIC VOLUME] IN BLOOD BY AUTOMATED COUNT 9.5 fl 7.5 - 11.2 12/04/2019 Specimen Type: BLOOD Comment: PANIC VALUE CALLED AND READ BACK by Kourtney Danielson @ 1635 [facility] CBC & DIFF ERYTHROCYTE DISTRIB UTION WIDTH [RATIO] BY AUTOMATED COUNT 19.9 % 11.8 - 15.1 12/04/2019 H Specimen Type: BLOOD Comment: PANIC VALUE CALLED AND READ BACK by Kourtney Danielson @ [address] [place] [address] CBC & DIFF LYMPHOCYTES/100 JUAN MIGUEL KOCYTES IN BLOOD BY AUTOMATED COUNT 6.9 % 12/04/2019 Specimen Type: BLOOD Comment: PANIC VALUE CALLED AND READ BACK by Kourtney Danielson @ [address] [place] [address] CBC & DIFF NEUTROPHILS/100 JUAN MIGUEL KOCYTES IN BLOOD BY AUTOMATED COUNT 89.1 % 12/04/2019 Specimen Type: BLOOD Comment: PANIC VALUE CALLED AND READ BACK by Kourtney Danielson @ [address] [place] [address] CBC & DIFF MONOCYTES/100 LEUKO CYTES IN BLOOD BY AUTOMATED COUNT 3.2 % 12/04/2019 Specimen Type: BLOOD Comment: PANIC VALUE CALLED AND READ BACK by Kourtney Danielson @ [address] [place] [address] CBC & DIFF MONOCYTES [#/VOLUME ] IN BLOOD BY AUTOMATED COUNT 0.26 K/cmm 0.19 - 0.80 12/04/2019 Specimen Type: BLOOD Comment: PANIC VALUE CALLED AND READ BACK by Kourtney Danielson @ [address] [place] [address] CBC & DIFF NEUTROPHILS [#/VOLU ME] IN BLOOD BY AUTOMATED COUNT 7.19 K/cmm 2.10 - 8.00 12/04/2019 Specimen Type: BLOOD Comment: PANIC VALUE CALLED AND READ BACK by Kourtney Danielson @ [address] [place] [address] CBC & DIFF EOSINOPHILS [#/VOLU ME] IN BLOOD BY AUTOMATED COUNT 0.01 K/cmm 0.00 - 0.60 12/04/2019 Specimen Type: BLOOD Comment: PANIC VALUE CALLED AND READ BACK by Kourtney Danielson @ [address] [place] [address] CBC & DIFF BASOPHILS [#/VOLUME ] IN BLOOD BY AUTOMATED COUNT 0.02 K/cmm 0.00 - 0.20 12/04/2019 Specimen Type: BLOOD Comment: PANIC VALUE CALLED AND READ BACK by Kourtney Danielson @ 1635 [facility] CBC & DIFF EOSINOPHILS/100 JUAN MIGUEL KOCYTES IN BLOOD BY AUTOMATED COUNT 0.1 % 12/04/2019 Specimen Type: BLOOD Comment: PANIC VALUE CALLED AND READ BACK by Kourtney Danielson @ [address] [place] [address] CBC & DIFF BASOPHILS/100 LEUKO CYTES IN BLOOD BY AUTOMATED COUNT 0.2 % 12/04/2019 Specimen Type: BLOOD Comment: PANIC VALUE CALLED AND READ BACK by Kourtney Danielson @ 1635 [facility] CBC & DIFF LYMPHOCYTES [#/VOLU ME] IN BLOOD BY AUTOMATED COUNT 0.56 K/cmm 0.77 - 4.50 12/04/2019 L Specimen Type: BLOOD Comment: PANIC VALUE CALLED AND READ BACK by Kourtney Danielson @ 1635 [facility] CBC & DIFF IMMATURE GRANULOCYT ES [#/VOLUME] IN BLOOD BY AUTOMATED COUNT 0.04 K/cmm 0.00 - 0.05 12/04/2019 Specimen Type: BLOOD Comment: PANIC VALUE CALLED AND READ BACK by Kourtney Danielson @ 1635 [facility] CBC & DIFF IMMATURE GRANULOCYT ES/100 LEUKOCYTES IN BLOOD BY AUTOMATED COUNT 0.5 % 12/04/2019 Specimen Type: BLOOD Comment: PANIC VALUE CALLED AND READ BACK by Kourtney Danielson @ 1635 [facility] Vital Signs Combined list of inpatient and outpatient Vital Signs from all [facility] and/or [facility] medical facilities within the last 15 months. The included entries comply with the patient's data sharing authorizations. Vital Sign Value Date Comments Source SYSTOLIC BLOOD PRESSURE 99mm[H g] 08/06/2019 13:03:07 [facility] DIASTOLIC BLOOD PRESSURE 59mm[ Hg] 08/06/2019 13:03:07 [facility] PULSE OXIMETRY 93% 08/06/2019 13:03:07 [facility] WEIGHT 176.3[lb_av] 08/06/2019 13:03:07 [facility] BMI 25kg/m2 08/06/2019 13:03:07 [facility] PAIN 6 08/06 13:03:07 [facility] HEIGHT 71[in_us] 08/06/2019 13:03:07 [facility] TEMPERATURE 98.7[degF] 08/06/2019 13:03:07 [facility] PULSE 91/min 08/06/2019 13:03:07 [facility] RESPIRATION 18/min 08/06/2019 13:03:07 [facility] WEIGHT 182.5[lb_av] 04/24/2019 09:31:00 [facility] BMI 26kg/m2 04/24/2019 09:31:00 [facility] PAIN 5 04/09 13:22:00 [facility] Encounters Combined list of encounters at Department of Defense and/or Veterans Affairs (VA ) for the last 15 months. Not all VA inpatient encounters are included. The incl uded entries comply with the patient's data sharing authorizations. Location Location Details Encounter Type Encounter Number Reason For Visit Attending Provider ADM Date DC Date Status Disposition Source Outpatient Encounter [id number] _MAPID:[id number] 06/06/2018 [facility] Outpatient Encounter [id number] _MAPID:[id number] 06/06/2018 [facility] Outpatient Encounter [id number] _MAPID:e [id number] SATHYA LINDSEY [facility]/28/2018 [facility] Outpatient Encounter [id number] _MAPID:[id number] 07/01/2018 [facility] Outpatient Encounter [id number] _MAPID:e [id number] JENNIFER LINDSEY 07/31/2018 [facility] Outpatient Encounter [id number] _MAPID:e [id number] 08/01/2018 [facility] 15 OFFICE/OUT PATIENT VISIT EST [id number] ICD-10 -CM M06.9 Rheumatoid arthritis, unspecified with Provider Comments: Rheumatoid arthritis ([facility] [id number]) YOU GOMEZ 08/01/2018 [facility] Outpatient Encounter [id number] ICD-10 -CM H90.3 Sensorineural hearing loss, bilateral with Provider Comments: Sensorineural hearing loss, bilateral ANILA CRENSHAW 08/01/2018 [facility] OFFICE CON SULTATION [id number] ICD-10 -CM R91.8 Other nonspecific abnormal finding of lung field with Provider Comments: Abnormal Finding of Lung Field ELISSA AGUILAR 08/06/2018 [facility] Outpatient Encounter [id number] ICD-10 -CM R91.8 Other nonspecific abnormal finding of lung field with Provider Comments: Abnormal radiologic density (SNOMED CT [id number]) TARIQKOURTNEY 08/13/2018 [facility] Outpatient Encounter [id number] ICD-10 -CM I25.10 Athscl heart disease of [place] coronary artery w/o ang pctrs with Provider Comments: Coronary artery disease ([facility] [id number]) BALTRUSAITIS,DUSTIN L 08/16/2018 [facility] Outpatient Encounter [id number] _MAPID:e [id number] 08/22/2018 [facility] 15 OFFICE/OUT PATIENT VISIT EST [id number] ICD-10 -CM M06.9 Rheumatoid arthritis, unspecified with Provider Comments: Rheumatoid arthritis ([facility] [id number]) KOURTNEY DANIELSON 08/22/2018 [facility] Outpatient Encounter [id number] ICD-10 -CM J44.9 Chronic obstructive pulmonary disease, unspecified with Provider Comments: Chronic Obstructive Pulmonary Disease, unspecified KOURTNEY DANIELSON 08/27/2018 [facility] Outpatient Encounter [id number] _MAPID:e [id number] 09/09/2018 [facility] 15 Outpatient Encounter [id number] _MAPID:[id number] 09/09/2018 [facility] Outpatient Encounter [id number] _MAPID:e [id number] JENNIFER LINDSEY 09/12/2018 [facility] 15 Outpatient Encounter [id number] _MAPID:qgiRvnfvo71 09/17/2018 [facility] Outpatient Encounter [id number] _MAPID:kdpPzsgrf75 09/18/2018 [facility] Outpatient Encounter [id number] _MAPID:e [id number] JENNIFER LINDSEY 09/25/2018 [facility] 15 Outpatient Encounter [id number] _MAPID:[id number] 09/30/2018 [facility] OFFICE CON SULTATION [id number] _MAPID :[id number] CAMRYN CAMPO 09/30/2018 [facility] Outpatient Encounter [id number] _MAPID:e [id number] LANGJULIO 10/09/2018 [facility] 15 Outpatient Encounter [id number] _MAPID:e [id number] 10/17/2018 [facility] 15 OFFICE/OUT PATIENT VISIT EST [id number] ICD-10 -CM G20. Parkinson's disease with Provider Comments: Parkinson's disease ([facility] [id number]) KOURTNEY DANIELSON 10/17/2018 [facility] TO-EKG [id number] _MAPID :[id number] 10/17/2018 [facility] Outpatient Encounter [id number] _MAPID:[id number] 10/18/2018 [facility] Outpatient Encounter [id number] _MAPID:[id number] 10/19/2018 [facility] Outpatient Encounter [id number] _MAPID:e [id number] 10/25/2018 [facility] 15 OFFICE CON SULTATION [id number] ICD-10 -CM M19.011 Primary osteoarthritis, right shoulder with Provider Comments: Primary osteoarthritis, right shoulder AISHA WATKINS 10/25/2018 [facility] Outpatient Encounter [id number] _MAPID:e [id number] 10/25/2018 [facility] 15 Outpatient Encounter [id number] ICD-10 -CM Z13.6 Encounter for screening for cardiovascular disorders with Provider Comments: Encounter for Screening for Cardiovascular Disorders AKANKSHA CARTAGENA 10/25/2018 [facility] Outpatient Encounter [id number] _MAPID:[id number] 10/25/2018 [facility] Outpatient Encounter [id number] _MAPID:e [id number] 10/28/2018 [facility] 15 Outpatient Encounter [id number] ICD-10 -CM M06.9 Rheumatoid arthritis, unspecified with Provider Comments: Rheumatoid arthritis ([facility] [id number]) BERRY DWYER 10/30/2018 [facility] IV Outpatient Encounter [id number] ICD-10 -CM Z71.89 Other specified counseling with Provider Comments: Counseling,Oth Specified JULIO LANG 11/05/2018 [facility] Outpatient Encounter [id number] _MAPID:e [id number] JENNIFER LINDSEY 11/05/2018 [facility] 15 Outpatient Encounter [id number] ICD-10 -CM H26.8 Other specified cataract with Provider Comments: Other specified Cataract KOURTNEY DANIELSON 11/08/2018 [facility] Outpatient Encounter [id number] _MAPID:e [id number] JENNIFER LINDSEY 12/04/2018 [facility] 15 Outpatient Encounter [id number] _MAPID:[id number] 12/05/2018 [facility] Outpatient Encounter [id number] _MAPID:e [id number] JENNIFER LINDSEY 12/11/2018 [facility] 15 Outpatient Encounter [id number] _MAPID:[id number] 12/12/2018 [facility] Outpatient Encounter [id number] _MAPID:e [id number] ROSALIAJENNIFER J 12/24/2018 [facility] 15 Outpatient Encounter [id number] _MAPID:e apGyrmwu39 ROSALIAJENNIFER J 12/24/2018 [facility] 15 Outpatient Encounter [id number] _MAPID:[id number] 12/24/2018 [facility] Outpatient Encounter [id number] _MAPID:e [id number] JENNIFER LINDSEY 01/07/2019 [facility] 15 Outpatient Encounter [id number] _MAPID:e koOqyksr75 JENNIFER LINDSEY 01/07/2019 [facility] 15 Outpatient Encounter [id number] _MAPID:[id number] 01/08/2019 [facility] Outpatient Encounter [id number] _MAPID:[id number] 01/08/2019 [facility] Outpatient Encounter [id number] _MAPID:e [id number] JENNIFER LINDSEY 01/22/2019 [facility] 15 Outpatient Encounter [id number] ICD-10 -CM Z71.89 Other specified counseling with Provider Comments: Counseling,Oth Specified JULIO LANG 01/30/2019 [facility] Outpatient Encounter [id number] _MAPID:e [id number] 02/03/2019 [facility] 15 Outpatient Encounter [id number] _MAPID:e [id number] JENNIFER LINDSEY 02/25/2019 [facility] 15 Outpatient Encounter [id number] _MAPID:e [id number] ROSALIAJENNIFER Toshia 04/02/2019 [facility] 15 Outpatient Encounter [id number] ICD-10 -CM M06.9 Rheumatoid arthritis, unspecified with Provider Comments: Rheumatoid arthritis ([facility] [id number]) BERRY AVITIA Hector 04/04/2019 [facility] IV Outpatient Encounter [id number] _MAPID:e [id number] ROSALIAJENNIFER Toshia 04/08/2019 [facility] 15 Outpatient Encounter [id number] _MAPID:e mrOdsize75 ROSALIALUIS ALFREDOJENNIFER J 04/08/2019 [facility] 15 OFFICE/OUT PAT[place] VIS[place] EST [id number] _MAPID:[id number] NASH KULKARNI 04/09/2019 [facility] Outpatient Encounter [id number] _MAPID:e [id number] 04/24/2019 [facility] 15 OFFICE/OUT PATIENT VISIT EST [id number] ICD-10 -CM I25.10 Athscl heart disease of [place] coronary artery w/o ang pctrs with Provider Comments: Coronary artery disease ([facility]CT [id number]) KOURTNEY DANIELSON 04/24/2019 [facility] Outpatient Encounter [id number] _MAPID:e [id number] ROSALIAJENNIFER J 05/28/2019 [facility] 15 Outpatient Encounter [id number] _MAPID:[id number] 05/31/2019 [facility] Outpatient Encounter [id number] _MAPID:e [id number] JENNIFER LINDSEY 06/24/2019 [facility] 15 Outpatient Encounter [id number] _MAPID:hybKzeipn65 06/26/2019 [facility] Outpatient Encounter [id number] _MAPID:e [id number] JENNIFER LINDSEY 07/02/2019 [facility] 15 Outpatient Encounter [id number] _MAPID:[id number] 07/02/2019 [facility] Outpatient Encounter [id number] _MAPID:e [id number] JENNIFER LINDSEY 07/02/2019 [facility] 15 Outpatient Encounter [id number] _MAPID:e [id number] 07/10/2019 [facility] OFF[facility]/OUT PATIENT VISIT EST [id number] ICD-10 -CM M06.09 Rheumatoid arthritis w/o rheumatoid factor, multiple sites with Provider Comments: Seronegative RA NASH KULKARNI A 08/06/2019 [facility] Outpatient Encounter [id number] _MAPID:[id number] 08/08/2019 [facility] Outpatient Encounter [id number] _MAPID:e ywNxttak80 08/12/2019 [facility] 15 Outpatient Encounter [id number] _MAPID:e [id number] JENNIFER LINDSEY 09/03/2019 [facility] 15 Outpatient Encounter [id number] _MAPID:[id number] 09/24/2019 [facility] Outpatient Encounter [id number] _MAPID:e [id number] JOSE FRANCISCO SANTA 09/30/2019 [facility] 15 Outpatient Encounter [id number] _MAPID:ytnWmqooy79 10/15/2019 [facility] Outpatient Encounter [id number] ICD-10 -CM M06.9 Rheumatoid arthritis, unspecified with Provider Comments: Rheumatoid arthritis ([facility] [id number]) KOURTNEY DANIELSON 10/17/2019 [facility] Outpatient Encounter [id number] _MAPID :endRe9 11/05/2019 [facility] Outpatient Encounter [id number] _MAPID :endRe8 11/05/2019 [facility] Outpatient Encounter [id number] _MAPID:e [id number] JENNIFER LINDSEY 11/06/2019 [facility] Outpatient Encounter [id number] _MAPID :endRe6 11/19/2019 [facility] Outpatient Encounter [id number] ICD-10 -CM G20. Parkinson's disease with Provider Comments: Parkinson's disease ([facility] [id number]) KOURTNEY DANIELSON 11/20/2019 [facility] Outpatient Encounter [id number] _MAPID :endRe4 12/03/2019 [facility] Outpatient Encounter [id number] _MAPID :endRe3 12/03/2019 [facility] Outpatient Encounter [id number] _MAPID :endRe2 12/04/2019 [facility] Outpatient Encounter [id number] ICD-10 -CM D64.9 Anemia, unspecified with Provider Comments: Anemia (SNOMED CT [id number]) KOURTNEY DANIELSON 12/04/2019 [facility] Procedures No Data Provided for This Section Social History Combined list of available smoking, tobacco, and other social history on record at Department of Defense and/or Veterans Affairs facilities. The included entrie s comply with the patient's data sharing authorizations. Social History Type Response Date Comment Source Tobacco smoking status [facility] [facility] [place] 1 TO < 5 YRS 10/17/2018 [facility] History of tobacco use [facility] FORMER USER 10/17/2018 [facility] History of tobacco use TOBAC CO USER OFFERED MEDS 11/26/2017 [facility] History of tobacco use QUIT TOBACCO IN THE LAST 12 MONTHS 11/26/2017 [facility] History of tobacco use TOBAC CO MEDS OFFERED BUT DECLINED 11/26/2017 [facility] History of tobacco use TOBAC CO CESSATION REFERRAL DECLINED 11/26/2017 [facility] History of tobacco use TOBAC CO USER OFFERED MEDS 02/27/2017 [facility] History of tobacco use QUIT TOBACCO IN THE LAST 12 MONTHS 02/27/2017 [facility] History of tobacco use TOBAC CO MEDS OFFERED BUT DECLINED 02/27/2017 [facility] History of tobacco use TOBAC CO CESSATION REFERRAL DECLINED 02/27/2017 [facility] History of tobacco use CURRE NT NON-TOBACCO USER 05/02/2016 [facility] History of tobacco use CURRE NT TOBACCO USER 09/29/2015 [facility] History of tobacco use TOBAC CO OFFERED STOP SMOKING CLINIC 09/29/2015 [facility] History of tobacco use CURRE NT TOBACCO USER 03/19/2015 [facility] History of tobacco use TOBAC CO OFFERED STOP SMOKING CLINIC 03/19/2015 [facility] History of tobacco use CURRE NT NON-TOBACCO USER 01/02/2014 [facility] History of tobacco use CURRE NT TOBACCO USER 07/30/2013 [facility] History of tobacco use CURRE NT TOBACCO USER 07/17/2012 [facility] Assessment and Plan No Data Provided for This Section Plan of Care Date/Time Care Activity Care Activity Detail Facility 01/06/2020 AMBULATORY - MEDICI NE AMBULATORY - MEDICINE [facility] 12/10/2019 AMBULATORY - MEDICI NE AMBULATORY - MEDICINE [facility] Toshia Garcia [facility] 12/04/2019 AMBULATORY - MEDICI NE AMBULATORY - MEDICINE [facility] 12/04/2019 Laboratory - Chemis try Order ERYTHROCYTE SEDIMENTATION RATE 5 ML LAVE NDER [facility]LOOD [facility] 12/04/2019 Laboratory - Chemis try Order IRON-TOTAL SST GEL SERUM SP RO ASHLYN [facility] 12/04/2019 Laboratory - Chemis try Order IRON/TIBC SST GEL SERUM SP RANJEET VAHID [facility] Family History No Data Provided for This Section Advance Directives No Data Provided for This Section Functional Status No Data Provided for This Section
--- OUTSIDE RECORDS SUMMARY | 2019-12-04 21:54 | XMS REPORT | Clinical Summary ---
Author Author [facility] Address Unknown Phone Unavailable Care Team Providers Care Professor Of Vegetable Science Name Role Phone PCP Unavailable Allergies Comments Active Allergy Reactions Severity Noted Date Joint swelling Penicillins Swelling 01/06/2014 Medications End Date Status Medication Sig Dispensed Refills Start Date Active aspirin 81 MG EC tablet Take 81 mg by 0 mouth daily. Active ALBUTEROL SULFATE IN Inhale 90 mcg 0 into the lungs 4 (four) times daily as needed. 2 puffs Active budesonide-formoterol Inhale 2 0 (SYMBICORT) 80-4.5 puffs into MCG/ACT inhaler the lungs 2 (two) times daily. Active hydrocodone-acetaminophen Take 2 0 (NORCO) 5-325 MG tablets by mouth nightly as needed for Pain. Active omeprazole (PRILOSEC) 20 Take 20 mg by 0 MG capsule mouth every morning before breakfast. Active predniSONE (DELTASONE) 5 Take 5 mg by 0 MG tablet mouth daily. Active Problems Problem Noted Date Unstable angina 01/06/2014 Immunizations Name Administration Dates Next Due Influenza IIV3 PFree 07/30/2013 Pneumococcal 10/31/2013 Polysaccharide (23-valent) Social History Date Tobacco Use Types Packs/Day Years Used Never Assessed Sex Assigned at Date Recorded Not on file Industry Job Start Date Occupation Not on file Not on file Not on file Travel End Travel History Travel Start No recent travel history available. Last Filed Vital Signs Reading Time Taken Comments Vital Sign 134/73 01/07/2014 8:27 AM CDT Blood Pressure 75 01/07/2014 8:27 AM CDT Pulse 36.8 C (98.2 F) 01/07/2014 8:27 AM CDT Temperature 18 01/07/2014 8:27 AM CDT Respiratory Rate 96% 01/07/2014 8:27 AM CDT Oxygen Saturation - - Inhaled Oxygen Concentration 82.9 kg (182 lb 11.2 oz) 01/07/2014 5:12 AM CDT Weight 177.8 cm (5' 10") 01/06/2014 2:00 PM CDT Height 26.21 01/06/2014 2:00 PM CDT Body Mass Index Plan of Treatment Health Maintenance Due Date Last Done Comments Hepatitis C Screening 1950 DTaP,Tdap,and Td Vaccines 1968 (1 - Tdap) Colon Cancer Screening 12/19/1999 Zoster Recombinant 12/19/1999 Vaccine (RZV,Shingrix) (1 of 2 - SV 2 Dose Standard) Pneumo-Vaccine: 65+Yrs (1 10/31/2018 10/31/2013 of 1 - PPSV23) Influenza Vaccine (Season 02/17/2020 07/30/2013 Ended) Pneumo-Vaccine: Peds (0-5 Aged Out 10/31/2013 No l onger eligible based on patient's age to Yrs) & At-Risk Patients complete this topic (6-64 Yrs) Results Not on filefrom Last 3 Months
--- OUTSIDE RECORDS SUMMARY | 2019-12-04 21:54 | XMS REPORT ---
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 [place] [facility] [employer] [facility] Address [address] [address] Care Team Providers Care Survey Director Name Role Phone NO, LOCAL PHYSICIAN PCP Unavailable RUTHY, KAREN Unavailable Unavailable RUTHY, KAREN Unavailable Unavailable RUTHY, KARNE Unavailable Unavailable JEWELS ZACARIAS, INDY Love Unavailable Unavailable RUTHY, KAREN Unavailable Unavailable RUTHY, KAREN Unavailable Unavailable RUTHY, KAREN Unavailable Unavailable KJ ADAMS Unavailable Unavailable ZENOBIA ZACARIAS, LEANA SHAH Unavailable Unavailable MD Leslee BLISS JR PCP Unavailable Unavailable Unavailable Unavailable Unavailable Unavailable Unavailable Unavailable Allergies Normalized Allergy Reported Date of Reaction(s) Care Provider Facility Allergy Type classification allergen Allergy Onset Drug Allergy Proton Pump pantoprazole 11-02-2018 - pantoprazole INDY DONIS [facility] Via (15 sources.) Inhibitors Translations: ([id number]) MD [place] [ [facility]] [place] ([address]) Drug Allergy Penicillins Penicillins 11-02-2018 - Penicillins Royce DONIS [facility] Via (15 sources.) (antibiotic) Translations: ([id number]) MD [place] [ Penicillins] [facility] ([address]) Medications The data below is from unstructured sourcesNo medication information available.No known medications.No known medications. Problems Active Problems Problem Normalized Date Last Normalized Normalized Provider Fa cility Classification Problem(s) Recorded Problem Problem Sta tus Duration Chronic Chronic Chronic Active [facility] Via obstructive obstructive MD [place] pulmonary pulmonary [facility] - disease and disease, [place] bronchiectasis unspecified ([address]57) (3 sources.) Other Encounter for 10-28-2019 - Episodic Active KJ CHUNG [facility] Via screening for screening for , SAFIA [place] suspected malignant Hospital - conditions neoplasm of [place] (not mental respiratory (88289) disorders or organs infectious disease) (2 sources.) Other lower Other 10-28-2019 - Episodic Active KJ GRADYDANTE Y [facility] Via respiratory nonspecific , [employer] [facility] disease (2 abnormal Hospital - sources.) finding of [place] lung field ([address]) Parkinson`s Parkinson's Chronic Active INDY JEWELS , [facility] Via disease (3 disease MD [place] sources.) Hospital - [place] ([address]) Screening and Personal 10-22-2019 - Episodic Active INDY RED , [facility] Via history of history of [facility] [place] [facility] Hospital - and substance dependence [place] abuse codes (53844) (11 sources.) Osteoarthritis Unilateral Chronic Active KAREN BLISS JR N ot Available (10 sources.) primary (05657) osteoarthritis , left knee Past or Other Problems Problem Normalized Date Last Normalized Normalized Provider Fa cility Classification Problem(s) Recorded Problem Problem Sta tus Duration Residual Acquired Episodic Completed INDY JEWELS , [facility] Via codes; absence of MD [place] unclassified other Hospital - (3 sources.) specified [place] parts of ([address]) digestive tract Allergic Allergy status Episodic Completed INDY JEWELS , [facility] Via reactions (6 to other MD [place] sources.) drugs, Hospital - medicaments [place] and biological (28721) substances status Translations: [ ALLERGY STATUS TO PENICILLIN] Other Effusion, Episodic Completed INDY JEWELS , [facility] Via non-traumatic right knee MD [place] joint Hospital - disorders (3 [place] sources.) (79506) External cause Fall (on) no information no information INDY HOL COMB , [facility] Via codes: Fall (1 (from) other MD [place] source.) stairs and Hospital - steps, initial [place] encounter ([address]708) External cause Fall (on) Episodic Completed INDY JEWELS , [facility] Via codes: Fall (2 (from) other MD [place] sources.) stairs and Hospital - steps, initial [place] encounter () Residual Other no information no information INDY JEWELS , [facility] Via codes; specified MD [place] unclasstea postprocedural Hospital - (1 source.) [facility] ([address]) Residual Other Episodic Completed INDY JEWELS , [facility] Via codes; specified MD [place] unclassified postprocedural Hospital - (2 sources.) [facility] (07782) Other Pain in right Episodic Completed INDY JEWELS , [facility] Via non-traumatic knee [facility] joint Hospital - disorders (3 [place] sources.) ([address]) Contraceptive Vasectomy Episodic Completed [facility] Via and status [facility] - management (3 [place] sources.) ([address]) Procedures Procedure Normalized Procedure Procedure Result Performer Facility Date 11-02-2018 X-ray of right knee no information INDY Love JEWELS [facility] ([address]) Immunizations Normalized Immunization Date Notes Care Provider Facili ty Immunization vaccine no information LOCAL NO [facility] Via Translations: [ [facility] vaccine] ([address]84) Results The data below is from unstructured sourcesNo relevant diagnostic test, laboratory data and/or discharge summary information available.No known relevant diagnostic tests and/or laboratory data.No known r elevant diagnostic tests and/or laboratory data. Vital Signs The data below is from unstructured sources Vital Response Date/Time Pulse Rate (adult) 98 bpm (60 - 90) 11/02/2018 10:23am Respiratory Rate 20 bpm (12 - 24) 11/02/2018 10:23am O2 Sat by Pulse Oximetry 95 % (88 - 100) 11/02/2018 10:23am Blood Pressure 120/67 mm Hg 11/02/2018 10:23am Blood Pressure Mean 84 mm Hg (65 - 110) 11/02/2018 10:23am Pain Numeric Pain Scale 9 10:23am Height (Feet) 5 feet 10:23am Height (Inches) 10.00 inches 11/02/2018 10:23am Height (Calculated Centimeters) 177. 197864 cm 11/02/2018 10:23am Height Method Stated 10:23am Weight (Pounds) 200 pounds 11/02/2018 10:23am Weight (Calculated Grams) 51288.48 gm 11/02/2018 10:23am Weight (Calculated Kilograms) 90.718 475 kilograms 11/02/2018 10:23am Weight Method Stated 10:23am Capillary Refill Capillary Refill Less Than 3 Seconds 11/02/2018 10:23am Height 5 ft 10 in 2018 10:23am Weight 200 lb 11/02/2018 10:23am Body Mass Index 28.7 kg/m^2 11/02/2018 10:23am Vital Reading Result Col lection Date/Time Vital Reading Result Col lection Date/Time Interventions No Information Plan of Treatment Normalized Care Care Detail Care Activity Date Care Provider F acility Activity Patient Education NO INSTRUCTIONS no information MD KAREN BLISS JR [facility] Via GIVEN [address] (Work Phone: [facility] ) ([address]) Goals Patient Goal Desired Goal no information no information Social History Normalized Code Original Code Date Value no information no information no information Ex-smoker (find ing) Tobacco smoking status Tobacco smoking status no information Smokes tobacco daily NHIS NHIS (finding) no information no information 12-04-2019 Denies Use no information no information 12-04-2019 No no information no information 12-04-2019 Denies no information no information 12-04-2019 Current Everyda y Smoker no information no information 12-04-2019 Cigarettes Sex Assigned At Sex Assigned At no information M karolyn Functional Status The data below is from unstructured sourcesNo functional status information available.No Functional Status information availableNo Functional Status information available Mental Status The data below is from unstructured sourcesNo Mental Status Information Available Encounters Encounter Normalized Encounter Encounter Diagnosis Care Provi nicholas Organization Date Type 12-04-2019 Emergency department no information (no phone) [facility] - patient visit Hospital (no phone) 12-05-2019 11-02-2018 Emergency department no information INDY DONIS Work no organization name - patient visit Phone: 11-02-2018 11-02-2018 Emergency department no information no name no organization name - patient visit 11-02-2018 03-06-2017 Patient encounter no information no name no or ganization name - 03-17-2017 11-28-2019 Patient encounter no information (no phone) Luli rajeev [facility] (no phone) 11-28-2019 Patient encounter no information LEANA JEREZ Via [facility] (no phone) [facility] (no phone) 10-27-2019 Patient encounter no information KJ BAIG (no [facility] procedure phone) [facility] (no phone) 11-10-2018 Patient encounter no information no name no or ganization name - procedure 11-11-2018 11-06-2018 Patient encounter no information no name no or ganization name - procedure 11-07-2018 11-02-2018 Patient encounter no information no name no or ganization name procedure 11-02-2018 Patient encounter no information no name no or ganization name procedure 02-12-2017 Patient encounter no information no name no or ganization name procedure 02-08-2017 Patient encounter no information no name no or ganization name procedure 02-06-2017 Patient encounter no information no name no or ganization name procedure 02-02-2017 Patient encounter no information no name no or ganization name procedure 01-31-2017 Patient encounter no information no name no or ganization name procedure 01-25-2017 Patient encounter no information no name no or ganization name procedure 01-24-2017 Patient encounter no information no name no or ganization name procedure 01-18-2017 Patient encounter no information no name no or ganization name procedure 11-29-2016 Patient encounter no information no name no or ganization name - procedure 11-30-2016 Medical Equipment The data below is from unstructured sourcesNo Medical Equipment Information available Payers Normalized Payer Value Unknown no information ([id number]) Medicare no information Unknown [id number]) Department of [facility] no information Evaluation note Note Type Note Facility Evaluation No Assessments Information Available A scension note Via [facility] ([id number]) Advance Directives Directive Response Recor ded Date/Time Advance Directives No 10:23am Resuscitation Status Full Code 11/02/18 10:23am Advance Directive Response Recorded Date/Time Advance Directives No Ju 2019 6:48pm Resuscitation Status Full Code December 04, 2019 6:48pm Chief Complaint and Reason for Visit Chief Complaint Lower Extremity Reason for Visit [id number] Chief Complaint Code Blue Reason for Visit [id number] Discharge Instructions No hospital discharge instruction information available. Additional Source Comments This clinical document has been generated using [employer] software that has been certified by the Office of the National Coordinator for Health Information Technology (ONC 15.99.04.3023.Diam.31.00.0.173557) and the National Committee for Ramp Manager (NCQA, as an eMeasure certified technology). FOR RECORDS PERTAINING TO PATIENTS WHO ARE OR HAVE BEEN ENROLLED IN A CHEMICAL D EPENDENCY/SUBSTANCE ABUSE PROGRAM, SOME INFORMATION MAY BE OMITTED. This clinica l summary was aggregated from multiple sources. Caution should be exercised in using it in the provision of clinical care. This summary normalizes information from multiple sources, and as a consequence, information in this document may ma terially change the coding, format and clinical context of patient data. In janene tion, data may be omitted in some cases. CLINICAL DECISIONS SHOULD BE BASED ON T HE PRIMARY CLINICAL RECORDS. [email or web address] [facility]. provides no warranty or guara ntee of the accuracy or completeness of information in this document.The followi information is based on time limited clinical information
--- OUTSIDE RECORDS SUMMARY | 2019-12-04 21:55 | XMS REPORT ---
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 This section includes the names of all active insurance providers for the tita banegas Insurance Provider Type of Coverage Plan Name Start of Policy Co verage End of Policy Coverage Group Number Member ID Insurance Provider's Telephone N umber Policy Stone's Name Patient's Relationship to Policy Stone E[employer]IT[employer] LIFE [employer] CASUALTY MEDIGAP PLAN G MEDICARE SUPPLEMENT Dec PLAN G [id number] [phone] CARLOS ROMANO PATIENT MEDICARE (WNR) MEDICARE (M) PART A Dec 16, 2014 PART A [id number] CARLOS ROMANO PATIENT MEDICARE (WNR) MEDICARE (M) PART B Dec 16, 2014 PART B [id number] CARLOS ROMANO PATIENT MEDICO DENTAL INSURANCE DENTAL VISIONHEARING Dec 16, 2014 DENTAL VISIONHEAR [id number] [phone] CARLOS ROMANO PATIENT Selected Encounter This section includes the information on record at VA for the Encounter. Date/Time Encounter Type Encounter Description Reason Provider Source Sep 24, 2019 07:11 AM Outpatient Encounter ADMIN PAT ACTIVTIES (MASNO NCT) [facility] [place] [facility] Encounter Template Text not used by VA Assessments - Encounter Diagnoses No Data Provided for This Section Plan of Treatment: Future Appointments (+ 6 months) and Future Tests (+/- 45 day s) The Plan of Treatment section includes future care activities for the patient fr om all [place] treatment facilities. This section includes future appointments and fu ture orders which are active, pending or scheduled. Future Appointments This section includes appointments that were scheduled t o occur 6 months from the date of the Encounter, up to a maximum of 20 appointme nts. The data comes from all [facility]. Appointment Date/Time Appointment Type Appointment Facili ty Name October 17, 2019 09:00 AM AMBULATORY - MEDICINE [facility] October 27, 2019 09:45 AM AMBULATORY - NONE [facility] [place] Nov 20, 2019 05:00 PM AMBULATORY - MEDICINE [facility] Nov 24, 2019 11:20 AM AMBULATORY - NONE [facility] [place] Dec 02, 2019 10:30 AM AMBULATORY - NONE [facility] [place] Dec 03, 2019 12:30 PM AMBULATORY - NONE [facility] Dec 04, 2019 10:45 AM AMBULATORY - MEDICINE [facility] Dec 10, 2019 01:30 PM AMBULATORY - MEDICINE [facility] Jan 06, 2020 10:30 AM AMBULATORY - MEDICINE [facility] Active, Pending, and Scheduled Orders This section includes a listing of several types of activ e, pending, and scheduled orders, including clinic medications orders, diagnosti c test orders, procedure orders and consult orders; where the start date of th e order is 45 days before the date of the Encounter or 45 days after the date o f the Encounter. The data comes from all [facility]. Test Date/Time Test Type Test Details Facility Name Sep 03, 2019 03:01 PM Consult Order [facility] [id number] Cons Bead Wire Taper's Choice [facility] [place] Surgical Procedures: All associated to the encounter No Data Provided for This Section Lab Results: +/- 30 days of the encounter No Data Provided for This Section Vital Signs: All taken on the encounter date No Data Provided for This Section Immunizations: All administered on the encounter date No Data Provided for This Section Social History: Smoking Status (Most current) and Tobacco Use (All prior to enco unter date) No Data Provided for This Section Advance Directives: All historical and current No Data Provided for This Section Allergies and Adverse Reactions (ADRs): All historical and current Section Date Range: From patient's date of to the date document was create d. This section includes Allergies and Adverse Reactions (ADR s) on record with [place] for the patient. The data comes from a ll [place] treatment facilities. It does not list Allergies/ADRs that were removed or entered in error. Some allergies/ADRs may be reported in t he Immunization section. Allergen Event Date Event Type Reaction(s) Severity Source PANTOPRAZOLE Oct 01, 2018 Propensity to adverse reactions to drug (disorder) Eruption [facility] PENICILLIN Jul 17, 2012 Propensity to adverse reactions to drug (disorder) Peripheral edema [facility] Medications: VA dispensed (-15 months) and Non-VA Documented (Obtained Outside V A) Section Date Range: 1) prescriptions processed by a VA pharmacy in the last 15 m [facility], and 2) all medications recorded in the [place] medical record as "non-VA medic ations". Pharmacy terms refer to [place] pharmacy's work on prescriptions. VA patient s are advised to take their medications as instructed by their health care team. The data comes from all [place] treatment facilities. Glossary of Pharmacy Terms:Active = A prescription that can be filled at the local [place] pharmacy.Active: On Hold = An active prescription that will not be filled until pharmacy resolves the issue.Active: Susp = An active prescription that is not scheduled to be filled yet.Clinic Order = A medication received during a visit to a [place] clinic or emergency department (currently not available).Discontinued = A prescription stopped by a VA provider. It is no longer available to be filled. = A prescription which is too old to fill. This does not refer to the expiration date of the medication in the container. Non-VA = A medication that came from someplace other than a VA pharmacy. This may be a prescription from either the VA or other providers that was filled outside the VA. Or, it may be an over the counter (OTC), herbal, dietary supplement or sample medication.Pending = This prescription order has been sent to the Pharmacy for review and is not ready yet. Medication Name and Strength Pharmacy Term Instructions Quantity Or dered Prescription Expires Prescription Number Last Dispense Date Ordering Provider Facility ALBUTEROL SO4 0.083% INHL,3ML USE 3 MLS (1 AMPULE) IN NEBULIZER FOR INHALATION ONCE 1 Nov 16, 2018 [id number] October 17, 2018 KJ POTTER [facility] ALBUTEROL SO4 90MCG/ACTUAT (CFC-F) INHL,ORAL,6.7GM Active INHALE 2 PUFFS BY ORAL INHALATION FOUR TIMES A DAY NEEDED - RINSE MOUTHPIECE FREQUENTLY TO PREVENT CLOGGING 1 Apr 24, 2020 [id number] October 18, 2019 KJ POTTER [facility] ALBUTEROL SO4 90MCG/ACTUAT (CFC-F) INHL,ORAL,6.7GM Discontin ued INHALE 2 PUFFS BY ORAL INHALATION FOUR TIMES A DAY NEEDED - RINSE MOUTHPIECE FREQUENTLY TO PREVENT CLOGGING 2 Apr 24, 2020 [id number] Apr 24, 2019 KJ POTTER [facility] BUDESONIDE 160MCG/FORMOTEROL FUM 4.5MCG/SPRAY INHL,ORAL,10.2 GM Active INHALE 2 PUFFS BY ORAL INHALATION TWO TIMES A DAY FOR BREATHING. SHAKE WELL. RINSE MOUTH AND SPIT AFTER EACH USE. 2 Apr 24, 2020 [id number] October 17, 2019 KJ JOSHI [facility] CALCIUM 500MG (CA CARBONATE-1.25GM) TAB Active: Susp TAKE ONE TABLET BY MOUTH TWO TIMES A DAY 180 Nov 20, 2020 [id number] Jan 09, 2020 KJ POTTER [facility] CALCIUM 500MG (CA CARBONATE-1.25GM) TAB Discontinued TAKE ONE TABLET BY MOUTH TWO TIMES A DAY 180 Jan 08, 2020 [id number] October 21, 2019 KJ POTTER [facility] [place] CALCIUM 500MG (CA CARBONATE-1.25GM) TAB Discontinued TAKE ONE TABLET BY MOUTH TWO TIMES A DAY 180 Dec 29, 2018 [id number] Oct 01, 2018 NASH KULKARNI [facility] CARBIDOPA 25MG/LEVODOPA 100MG TAB Active TAKE 2 TABLETS BY MOUTH FOUR TIMES A DAY FOR PARKINSON'S DISEASE. DO NOT TAKE WITH FOOD. 240 Nov 24, 2020 [id number] Nov 27, 2019 ALLEGRA HOWE [facility] [place] CARBIDOPA 25MG/LEVODOPA 100MG TAB Discontinued TAKE T WO TABLETS BY MOUTH FIVE TIMES DAILY FOR PARKINSON'S DISEASE. DO NOT TAKE WITH FOOD. 600 Jul 02, 2020 [id number] Nov 19, 2019 [facility] [place] [facility] CARBIDOPA 25MG/LEVODOPA 100MG TAB Discontinued TAKE 2 TABLETS BY MOUTH FIVE TIMES DAILY FOR PARKINSON'S DISEASE. DO NOT TAKE WITH FOOD. 300 Jun 30, 2020 [id number] Jul 01, 2019 [facility] [place] [facility] CARBIDOPA 25MG/LEVODOPA 100MG TAB Discontinued TAKE 2 TABLETS BY MOUTH FOUR TIMES A DAY FOR PARKINSON'S DISEASE. DO NOT TAKE WITH FOOD. 240 Jun 24, 2020 [id number] Jun 26, 2019 [facility] [place] [facility] CARBIDOPA 25MG/LEVODOPA 100MG TAB Discontinued TAKE 2 TABLETS BY MOUTH FOUR TIMES A DAY FOR PARKINSON'S DISEASE. DO NOT TAKE WITH FOOD. 240 Dec 25, 2019 [id number] May 15, 2019 [facility] A DIV CARBIDOPA 25MG/LEVODOPA 100MG TAB Discontinued TAKE 2 TABLETS BY MOUTH FOUR TIMES A DAY FOR PARKINSON'S DISEASE. DO NOT TAKE WITH FOOD. 240 Jun 07, 2019 [id number] Nov 18, 2018 [facility] [place] [facility] CHOLECALCIFEROL 25MCG (1,000UNIT) TAB Active: Susp TA KE TWO TABLETS BY MOUTH ONCE A DAY FOR VITAMIN D DEFICIENCY 200 Nov 20, 2020 [id number] Dec 172019 [facility] CHOLECALCIFEROL 25MCG (1,000UNIT) TAB Discontinued TA KE TWO TABLETS BY MOUTH ONCE A DAY FOR VITAMIN D DEFICIENCY 200 Dec 25, 2019 [id number] October [facility] [place] CHOLECALCIFEROL 25MCG (1,000UNIT) TAB Discontinued TA KE TWO TABLETS BY MOUTH ONCE A DAY FOR VITAMIN D DEFICIENCY 200 Oct 10, 2018 [id number] Aug 172018 [facility] CLOPIDOGREL BISULFATE 75MG TAB Active: Susp TAKE ONE TABLET BY MOUTH ONCE A DAY TO PREVENT BLOOD CLOTS 90 Apr 24, 2020 [id number] Dec 19, 2019 [facility] CLOPIDOGREL BISULFATE 75MG TAB Discontinued TAKE ONE TABLET BY MOUTH ONCE A DAY TO PREVENT BLOOD CLOTS 90 Jun 01, 2019 [id number] Mar 13, 2019 [facility] [place] DIPHENHYDRAMINE HCL 25MG CAP Non-VA TAKE 1 CAPSULE BY MOUTH EVERY 6 HOURS NEEDED Non-VA Documented by: KJ POTTER nted at: [facility] FLUDROCORTISONE ACETATE 0.1MG TAB Active TAKE ONE TABLET BY M OUTH ONCE A DAY 90 Nov 19, 2020 [id number] Nov 20, [facility] [place] FOLIC ACID 1MG TAB Non- VA TAKE ONE TABLET BY MOUTH ONCE A DAY N on-VA Documented by: KJ POTTER nted at: [facility] GABAPENTIN 300MG CAP Active TAKE 1 CAPSULE BY M OUTH 5 TIMES A DAY FOR PAIN AND TREMORS. 300 October 17, 2020 [id number] October 18, 2019 [facility] GAB[facility] 300MG CAP Discontinued TAKE ONE CAPSULE BY MOUTH FOUR TIMES A DAY FOR PAIN AND TREMORS. 240 Jan 08, 2020 [id number] Oct 14, 2019 [facility] GABAPENT[facility] 300MG CAP Discontinued TAKE ONE CAPSULE BY MOUTH FOUR TIMES A DAY FOR PAIN AND TREMORS. 240 Mar 08, 2019 [id number] Jan 07, 2019 [facility] [place] HYDROCODONE 10MG/ACETAMINOPHEN 325MG TAB Active TAKE ONE TABLET (10/325MG) BY MOUTH THREE TIMES A DAY NEEDED FOR PAIN CAUTION: DO NOT EXCEED 4000MG/DAY TOTAL OF ACETAMINOPHEN (APAP) FROM ALL MEDS 90 Dec 20, 2019 [id number] Nov 21, 2019 [facility] HYDROCODONE 10MG/ACETAMINOPHEN 325MG TAB Discontinued TAKE ONE TABLET (10/325MG) BY MOUTH THREE TIMES A DAY NEEDED FOR PAIN CAUTION: DO NOT EXCEED 4000MG/DAY TOTAL OF ACETAMINOPHEN (APAP) FROM ALL MEDS 90 Sep 17, 2 020 [id number] Sep 04, 2019 [facility] [place] HYDROCODONE 10MG/ACETAMINOPHEN 325MG TAB Discontinued TAKE ONE TABLET BY MOUTH THREE TIMES A DAY NEEDED FOR PAIN CAUTION: DO NOT EXCEED 4000MG/DAY TOTAL OF ACETAMINOPHEN (APAP) FROM ALL MEDS 90 Jul 26, 2019 [id number] Jun 26, 2019 [facility] [place] HYDROCODONE 10MG/ACETAMINOPHEN 325MG TAB Discontinued TAKE ONE TABLET BY MOUTH THREE TIMES A DAY NEEDED FOR PAIN CAUTION: DO NOT EXCEED 4000MG/DAY TOTAL OF ACETAMINOPHEN (APAP) FROM ALL MEDS 90 Jun 27, 2019 [id number] May 29, 2019 [facility] [place] HYDROCODONE 10MG/ACETAMINOPHEN 325MG TAB Discontinued TAKE ONE TABLET BY MOUTH THREE TIMES A DAY NEEDED FOR PAIN CAUTION: DO NOT EXCEED 4000MG/DAY TOTAL OF ACETAMINOPHEN (APAP) FROM ALL MEDS 90 May 08, 2019 [id number] Apr 08, 2019 [facility] [place] HYDROCODONE 10MG/ACETAMINOPHEN 325MG TAB Discontinued TAKE ONE TABLET BY MOUTH THREE TIMES A DAY NEEDED FOR PAIN CAUTION: DO NOT EXCEED 4000MG/DAY TOTAL OF ACETAMINOPHEN (APAP) FROM ALL MEDS 90 Mar 28, 2019 [id number] Feb 26, 2019 [facility] [place] HYDROCODONE 10MG/ACETAMINOPHEN 325MG TAB Discontinued TAKE ONE TABLET BY MOUTH THREE TIMES A DAY NEEDED FOR PAIN CAUTION: DO NOT EXCEED 4000MG/DAY TOTAL OF ACETAMINOPHEN (APAP) FROM ALL MEDS 90 Feb 06, 2019 [id number] Jan 07, 2019 [facility] [place] HYDROCODONE 10MG/ACETAMINOPHEN 325MG TAB Discontinued TAKE ONE TABLET BY MOUTH THREE TIMES A DAY NEEDED FOR PAIN CAUTION: DO NOT EXCEED 4000MG/DAY TOTAL OF ACETAMINOPHEN (APAP) FROM ALL MEDS 90 Dec 05, 2018 [id number] November 05, 2018 [facility] [place] HYDROCODONE 10MG/ACETAMINOPHEN 325MG TAB Discontinued TAKE ONE TABLET BY MOUTH THREE TIMES A DAY NEEDED FOR PAIN CAUTION: DO NOT EXCEED 4000MG/DAY TOTAL OF ACETAMINOPHEN (APAP) FROM ALL MEDS 90 October 25, 2018 [id number] Sep 25, 2018 [facility] [place] HYDROCODONE 10MG/ACETAMINOPHEN 325MG TAB TAKE ONE TABLET (10/325MG) BY MOUTH THREE TIMES A DAY NEEDED FOR PAIN CAUTION: DO NOT EXCEED 4000MG/DAY TOTAL OF ACETAMINOPHEN (APAP) FROM ALL MEDS 90 November 16, 2019 [id number] October 18, 2019 TARIQKJ [facility] METHOTREXATE NA 2.5MG TAB Active TAKE SEVEN TABLETS BY MOUTH EVERY WEEK 90 October 17, 2020 [id number] November 04, 2019 [facility] METHOTREXATE NA 2.5MG TAB Discontinued TAKE SEVEN TABLETS BY MOUTH EVERY WEEK 90 May 09, 2020 [id number] Aug 16, 2019 NASH KULKARNI [facility] METHOTREXATE NA 2.5MG TAB Discontinued TAKE SEVEN TABLETS BY MOUTH EVERY WEEK 90 Aug 04, 2019 [id number] Feb 22, 2019 YOU GOMEZ [facility] [place] NORTRIPTYLINE HCL 10MG CAP Active TAKE 2 CAPSULES BY MO UTH AT BEDTIME NEEDED 120 Apr 02, 2020 [id number] Nov 20, 2019 [facility] [place] NORTRIPTYLINE HCL 10MG CAP Discontinued TAKE 2 CAPSUL ES BY MOUTH AT BEDTIME NEEDED 120 Mar 20, 2019 [id number] Jan 23, 2019 [facility] OMEPRAZOLE 20MG CAP,EC Active TAKE 1 CAPSULE BY MOUTH EVERY MORNING TO LOWER STOMACH ACID. TAKE 30 MINUTES PRIOR TO FOOD. 90 October 17, 2020 [id number] October 21, 2019 [facility] OMEPRAZOLE 20MG CAP,EC Discontinued TAKE 1 CAPSULE BY MOUTH EVERY MORNING TO LOWER STOMACH ACID. TAKE 30 MINUTES PRIOR TO FOOD. 90 Oct 02, 2019 [id number] Aug 02, 2019 [facility] [place] PREDNISONE 1MG TAB Discontinued TAKE THREE TABLETS B Y MOUTH ONCE A DAY FOR INFLAMMATION AND IMMUNE RESPONSE. TAKE WITH FOOD OR MILK. 270 Fe b 2019 [id number] Apr 24, 2019 [facility] PREDNISONE 1MG TAB Discontinued TAKE FOUR TABLETS BY MOUTH ONCE A D AY 360 Apr 22, 2019 [id number] Jan 24, 2019 [facility] [place] PREDNISONE 1MG TAB Discontinued TAKE FOUR TABLETS BY MOUTH ONCE A D AY 360 Dec 29, 2018 [id number] Oct 01, [address] [facility] PREDNISONE 1MG TAB TAKE THREE TABLETS B Y MOUTH ONCE A DAY FOR INFLAMMATION AND IMMUNE RESPONSE. TAKE WITH FOOD OR MILK. 270 Ap r 2019 [id number] Jul 13, 2019 [facility] [place] PREDNISONE 5MG TAB Discontinued TAKE ONE TABLET BY MOUTH ONCE A DAY WITH FOOD 60 Aug 01, 2019 [id number] Sep 25, 2018 JK POTTER [facility] [place] [facility] ROPINIROLE HCL 1MG TAB Active TAKE ONE TABLET BY MOUTH AT BED TIME 90 October 17, 2020 [id number] Nov 25, 2019 KJ POTTER [facility] ROPINIROLE HCL 1MG TAB Discontinued TAKE ONE TABLET BY MOUTH AT BED TIME 90 Dec 05, 2019 [id number] Sep 03, 2019 KRYSTAL DEJESUS [facility] [place] ROPINIROLE HCL 1MG TAB Discontinued TAKE ONE TABLET BY MOUTH AT BED TIME 90 Dec 13, 2018 [id number] Sep 12, 2018 [facility] [place] [facility] TAMSULOSIN HCL 0.4MG CAP Active: Susp TAKE 1 CAPSULE BY MOUTH ONCE A DAY FOR PROSTATE. TAKE AT THE SAME TIME EACH DAY WITH FOOD. 90 Sep 30 1 [id number] Dec 20, 2019 TARIQ,DANA [facility] [place] TAMSULOSIN HCL 0.4MG CAP Discontinued TAKE 1 CAPSULE BY MOUTH ONCE A DAY FOR PROSTATE. TAKE AT THE SAME TIME EACH DAY WITH FOOD. 90 Sep 12 0 [id number] Jun 24, 2019 KYLE BRUCETHIA [facility] [place] Problems (Conditions): All historical and current Section Date Range: From patient's date of to the date document was create d. This section includes a list of Problems (Conditions) know n to VA for the patient. It includes both active and inacti ve problems (conditions). The data comes from all [place] treatment facilities. Problem Status Problem Code Date of Onset Date of Resolution Comm ent(s) Provider Source Abnormal radiologic density Active [id number] [facility] [place] [facility] Allergic rhinitis Active 37440932 LADY SALAZAR [facility] [place] [facility] Anemia Active 239912614 [facility] [place] Chest pain (SNOMED CT 85156791) Active 786.50 [facility] [place] Chondrocalcinosis Active [id number] YOU GOMEZ [facility] [place] [facility] Chronic obstructive lung disease Active 59647835 [facility] [place] Coronary artery disease Active 43681337 Angella LINDSEY NICHOLAS Pope [facility] [place] Cough Active 93427827 [facility]ADY SALAZAR [facility] [place] Cough (SNOMED CT 14687431) Active 786.2 KJ BARRON [facility] [place] Dysarthria (SNOMED CT 1597516) Active 784.51 M KJ WONG [facility] [place] Dyspnea (SNOMED CT 658445002) Active 786.09 KJ BARKSDALE [facility] [place] Eruption due to drug Active 04018217 Abdiaziz POTTER TORY [facility] [place] Gastroesophageal reflux disease Active 584940296 KJ POTTER [facility] [place] Hallux valgus AND bunion Active 921167378 ALEXANDRO DEISY Dangelo [facility] [place] [facility] Joint pain (SNOMED CT 85887211) Active 719.40 DEISY CONTRERAS Royce [facility] [place] [facility] Joint swelling (SNOMED CT 959009710) Active 719.00 KJ POTTER [facility] [place] Knee pain Active 49540611 ROSALIAJENNIFER [facility] [place] [facility] Muscle weakness (SNOMED CT 12076981) Active 728.87 KJ POTTER [facility] [place] Neuropathy Active [id number] TARIQKJ DAKSHAChad [facility] [place] Osteoarthritis Active 715.36 DYAN SERVIN [facility] [place] [facility] Parkinson's disease Active 19483349 ETHAN POTTER [facility] [place] Peripheral Neuropathy Active 356.9 DASARAJU,P UR[facility]AMA [facility] [place] Personal History of Exposure to Agent [place] Active V15.89 DEISY CONTRERAS Royce [facility] [place] [facility] Polyp of colon (SNOMED CT 28232158) Active 211.3 TARIQKJ SMITH [facility] [place] Restless legs Active 52077972 PATRICK WHITE [facility] [place] Rheumatoid arthritis Active 59347534 Abdiaziz POTTER [facility] [place] [facility] Screening, Malignancy Active V76.89 LISSETH TOLEDO [facility] [place] [facility] Sleep apnea Active 40131921 KJ POTTER RN [facility] [place] Synovial cyst of popliteal space (SNOMED CT 37345932) Active 727.51 KJ POTTER [facility] [place] Tobacco dependence in remission Active 034273105 KJ POTTER [facility] [place] Tobacco use Active 841330634 JENNIFER [facility] [place] Tremor Active 70174719 [facility] [place] [facility] Unresolved Active 27847458 [facility]ENNIFER [facility] [place] [facility] Unresolved Active 96941184 JENNIFER [facility] [place] Radiology Reports: +/- 30 days of the encounter No Data Provided for This Section Pathology Reports: +/- 30 days of the encounter No Data Provided for This Section Encounter Notes: All associated encounter notes This section contains the clinical notes associated to the Encounter. Date/Time Encounter Note(s) Provider Source Sep 24, 2019 07:11 AM ACCOUNTING OF DISCLOSURES NO TE: LOCAL TITLE: STATE PRESCRIPTION DRUG MONITORING PROGRAM (SPDMP)- STANDARD TITLE: ACCOUNTING OF DISCLOSURES NOTE DATE OF NOTE: SEP 24, 2019@07:11 ENTRY DATE: SEP 24, 2019@07:11:55 AUTHOR: KJ POTTER EXP COSIGNER: URGENCY: STATUS: COMPLETED STATE PRESCRIPTION DRUG MONITORING PROGRAM (SPDMP): Purpose: [place] and the [facility] are exchanging information so that the VA provider can manage your health care. The State may use this information to monitor controlled substance prescriptions and for law enforcement purposes. I reviewed patient's State Prescription Drug Monitoring Program (SPDMP) report prior to prescribing Schedule II or Schedule III medications. Report request number State: [place] FINDINGS: No unexpected Non-VA prescriptions /es/ KJ POTTER [facility] Signed: 09/24/2019 07:12 KJ POTTER [facility] [place]
--- OUTSIDE RECORDS SUMMARY | 2019-12-04 21:55 | XMS REPORT | Encounter Summary ---
Author Author Department of [facility] CARLOS sweeney Organization Department of [facility] Address [address] [place] [address] Phone Unavailable Care Team Providers Care Statement Clerks Supervisor Name Role Phone TARIQKOURTNEY PCP Unavailable Insurance Providers: All historical and [...] PLAN G MEDICARE SUPPLEMENT Dec PLAN G [id number] [phone] CARLOS ROMANO PATIENT MEDICARE (WNR) MEDICARE (M) PART A Dec 16, 2014 PART A [id number] CARLOS ROMANO PATIENT MEDICARE (WNR) MEDICARE (M) PART B Dec 16, 2014 PART B [id number] CARLOS ROMANO PATIENT MEDICO DENTAL INSURANCE DENTAL VISIONHEARING Dec 16, 2014 DENTAL VISIONHEAR [id number] [phone] CARLOS ROMANO PATIENT Selected Encounter This section includes the information on record at VA for the Encounter. Date/Time Encounter Type Encounter Description Reason Provider Source November 05, 2019 09:09 AM Outpatient Encounter ADMIN PAT ACTIVTIES (MASNO NCT) [facility] [place] IHE Encounter Template Text not used by VA Assessments - Encounter Diagnoses No Data Provided for This Section Plan of Treatment: Future Appointments (+ 6 months) and Future Tests (+/- 45 day s) The Plan of Treatment section includes future care activities for the patient fr om all [place] treatment facilities. This section includes future appointments and fu ture orders which are active, pending or scheduled. Future Appointments This section includes appointments that were scheduled t o occur 6 months from the date of the Encounter, up to a maximum of 20 appointme nts. The data comes from all [facility]. Appointment Date/Time Appointment Type Appointment Facili ty Name Nov 20, 2019 05:00 PM AMBULATORY - MEDICINE [facility] [place] Nov 24, 2019 11:20 AM AMBULATORY - NONE [facility] [place] Dec 02, 2019 10:30 AM AMBULATORY - NONE [facility] [place] Dec 03, 2019 12:30 PM AMBULATORY - NONE [facility] PopeJose MOREJON [facility] Dec 04, 2019 10:45 AM AMBULATORY - MEDICINE [facility] Dec 10, 2019 01:30 PM AMBULATORY - MEDICINE [facility] Jan 06, 2020 10:30 AM AMBULATORY - MEDICINE [facility] Active, Pending, and Scheduled Orders This section [...] the Encounter. The data comes from all [facility]. Test Date/Time Test Type Test Details Facility Name Dec 04, 2019 11:10 AM Laboratory - Chemistry Order ERYTHROCY TE SEDIMENTATION RATE 5 ML LAVENDER TOP BLOOD SP FLAG POND ToshiaJose [facility] Dec 04, 2019 11:10 AM Laboratory - Chemistry Order IRON-TOTAL SS T GEL SERUM SP [facility] Dec 04, 2019 11:10 AM Laboratory - Chemistry Order IRON/TIBC SST GEL SERUM SP [facility] Surgical Procedures: All associated to the encounter No Data Provided for This Section Lab Results: +/- 30 days of the encounter This section includes the Chemistry and Hematology Lab R esults on record with [place] for the patient. Radiology Reports and Pathology Report s are provided separately, in subsequent sections. Lab Results This section contains the Chemistry/Hematology Results juan t were resulted 30 days before or 30 days after the date of the Encounter. Date/Time Source Result Type Result - Unit Interpretation Reference Range Comment Dec 04, 2019 11:10 AM [facility] FERRITIN Specimen Type: SERUM No comment entered. FERRITIN 6 ng/mL L 22-275 Dec 04, 2019 11:10 AM [facility] LIPID PROFILE(HDL,TRIG ,CHOL,LDL) Specimen Type: PLASMA No comment entered. CHOLESTEROL 75 mg/dL 0-200 TRIGS 38 mg/dL 0-150 HDL-CHOLESTEROL 34 mg/dL L >40 LDL (CALC) 33 mg/dL 0-99.9 Dec 04, 2019 11:10 AM [facility] TSH Specimen Type: SERUM No comment entered. TSH 1.51 uIU/mL 0.47-5.00 Dec 04, 2019 11:10 AM [facility] PROSTATIC SPECIFIC ANT IGEN(TOTAL) Specimen Type: SERUM No comment entered. PROSTATIC SPECIFIC ANTIGEN(TOTAL) 1.68 ng/mL 0-4 Dec 04, 2019 11:10 AM [facility] VITAMIN D (25-OH) Specimen Type: SERUM No comment entered. VITAMIN D (25-OH) 36.4 ng/mL 30.0-96.0 Dec 04, 2019 11:10 AM [facility] FOLATE Specimen Type: SERUM No comment entered. FOLATE >40.0 ng/mL H 7.0-20.0 Dec 04, 2019 11:10 AM [facility] VITAMIN B12 Specimen Type: SERUM No comment entered. VITAMIN B12 491 pg/mL 213-816 Dec 04, 2019 11:10 AM [facility] C-REACTIVE PROTEIN Specimen Type: SERUM No comment entered. C-REACTIVE PROTEIN 9.77 mg/dL H 0.0-0.5 Dec 04, 2019 11:10 AM [facility] COMPREHENSIVE METABOLI C PANEL Specimen Type: PLASMA No comment entered. *CREATININE 1.01 mg/dL 0.7-1.3 UREA NITROGEN mg/dL 20 mg/dL 9-25 GLUCOSE 81 mg/dL 72-99 SODIUM 136 mEq/L 136-145 POTASSIUM 4.4 mEq/L 3.5-5.0 CALCIUM (mg/dL) 8.5 mg/dL 8.4-10.4 PROTEIN,TOTAL 6.4 g/dL 6.0-8.6 ALBUMIN 3.3 g/dl L 3.4-5.0 TOTAL BILIRUBIN 0.7 mg/dL 0.2-1.2 ASPARTATE TRANSAMINASE 45 U/L H 5-34 ALANINE AMINOTRANSFERASE 9 U/L 8-40 CHLORIDE 100 mEq/L 98-107 CO2 21 mEq/L L 22-31 ALKALINE PHOSPHATASE 103 U/L 40-150 EGFR 73.2 Dec 04, 2019 11:10 AM BLUE MOREJON [facility] CBC & DIFF Specimen Type: BLOOD Comment: PANIC VALUE CALLED AND READ BACK by Kourtney Danielson @ 1635 WBC 8.08 K/cmm 3.60-11.20 RBC 1.83 M/ul L 4.1-5.7 HGB 3.3 g/dl LL 13.1-16.8 HCT 12.1 % L 38.2-48.4 MCV 66.1 fl L 80.1-98.5 MCH 18.0 pg L 27.0-34.0 MCHC 27.3 g/dl L 33.0-36.0 PLATELET COUNT 578 K/cmm H 150-400 MPV 9.5 fl 7.5-11.2 RDW 19.9 % H 11.8-15.1 LYMPHOCYTES, AUTO% 6.9 % NEUTROPHILS, AUTO % 89.1 % MONOCYTES, AUTO% 3.2 % MONOCYTES, ABSOLUTE 0.26 K/cmm 0.19-0.80 NEUTROPHILS, ABSOLUTE 7.19 K/cmm 2.10-8. 00 EOSINOPHILS, ABSOLUTE 0.01 K/cmm 0.00-0. 60 BASOPHILS, ABSOLUTE 0.02 K/cmm 0.00-0.20 EOSINOPHILS, AUTO% 0.1 % BASOPHILS, AUTO% 0.2 % LYMPHOCYTES, ABSOLUTE 0.56 K/cmm L 0.77-4. 50 IMMATURE GRANS, ABSOLUTE 0.04 K/cmm 0.00 -0.05 IMMATURE GRANS, AUTO % 0.5 % Vital Signs: All taken on the encounter [...] Adverse Reactions (ADR s) on record with [place] for the patient. The data comes from a ll [place] treatment facilities. It does not list Allergies/ADRs that were removed or entered in error. Some allergies/ADRs may be reported in t he Immunization section. Allergen Event Date Event Type Reaction(s) Severity Source PANTOPRAZOLE Oct 01, 2018 Propensity to adverse reactions to drug (disorder) Eruption [facility] [place] Jul 17, 2012 Propensity to adverse reactions to drug (disorder) Peripheral edema [facility] Medications: VA dispensed (-15 months) and Non-VA Documented (Obtained Outside V A) Section Date Range: 1) prescriptions processed by a VA pharmacy in the last 15 m ont, and 2) all medications recorded in the [place] medical record as "non-VA medic ations". Pharmacy terms refer to [place] pharmacy's work on prescriptions. VA patient s are advised to take their medications as instructed by their health care team. The data comes from all [place] treatment facilities. Glossary of Pharmacy Terms:Active = A prescription that can be filled at the local [place] pharmacy.Active: On Hold = An active prescription that will not be filled until pharmacy resolves the issue.Active: Susp = An active prescription that is not scheduled to be filled yet.Clinic Order = A medication received during a visit to a [place] clinic or emergency department (currently not available).Discontinued [...] other providers that was filled outside the [place]. Or, it may be an over the [...] FOR INHALATION ONCE 1 Nov 16, 2018 [id number] October 17, 2018 KOURTNEY DANIELSON [facility] ALBUTEROL SO4 90MCG/ACTUAT (CFC-F) INHL,ORAL,6.7GM Active INHALE 2 PUFFS BY ORAL INHALATION FOUR TIMES A DAY NEEDED - RINSE MOUTHPIECE FREQUENTLY TO PREVENT CLOGGING 1 Apr 24, 2020 [id number] October 18, 2019 KOURTNEY DANIELSON [facility] ALBUTEROL SO4 90MCG/ACTUAT (CFC-F) INHL,ORAL,6.7GM Discontin ued INHALE 2 PUFFS BY ORAL INHALATION FOUR TIMES A DAY NEEDED - RINSE MOUTHPIECE FREQUENTLY TO PREVENT CLOGGING 2 Apr 24, 2020 [id number] Apr 24, 2019 KOURTNEY DANIELSON COT [facility] BUDESONIDE 160MCG/FORMOTEROL FUM 4.5MCG/SPRAY INHL,ORAL,10.2 GM Active INHALE 2 PUFFS BY ORAL INHALATION TWO TIMES A DAY FOR BREATHING. SHAKE WELL. RINSE MOUTH AND SPIT AFTER EACH USE. 2 Apr 24, 2020 [id number] October 17, 2019 KOURTNEY JOSHI [facility] CALCIUM 500MG ([place] CARBONATE-1.25GM) TAB Active: Susp TAKE ONE TABLET BY MOUTH TWO TIMES A DAY 180 Nov 20, 2020 [id number] Jan 09, 2020 KOURTNEY DANIELSON [facility] CALCIUM 500MG ([place] CARBONATE-1.25GM) TAB Discontinued TAKE ONE TABLET BY MOUTH TWO TIMES A DAY 180 Jan 08, 2020 [id number] October 21, 2019 KOURTNEY DANIELSON [facility] [place] CALCIUM 500MG ([place] CARBONATE-1.25GM) TAB Discontinued TAKE ONE TABLET BY MOUTH TWO TIMES A DAY 180 Dec 29, 2018 [id number] Oct 01, 2018 NASH KULKARNI [facility] CARBIDOPA 25MG/LEVODOPA 100MG TAB Active TAKE 2 TABLETS BY MOUTH FOUR TIMES A DAY FOR PARKINSON'S DISEASE. DO NOT TAKE WITH FOOD. 240 Nov 24, 2020 [id number] Nov 27, 2019 ALLEGRA HOWE [facility] [place] CARBIDOPA 25MG/LEVODOPA 100MG TAB Discontinued TAKE T WO TABLETS BY MOUTH FIVE TIMES DAILY FOR PARKINSON'S DISEASE. DO NOT TAKE WITH FOOD. 600 Jul 02, 2020 [id number] Nov 19, 2019 TARIQ[facility] [place] CARBIDOPA 25MG/LEVODOPA 100MG TAB Discontinued TAKE 2 TABLETS BY MOUTH FIVE TIMES DAILY FOR PARKINSON'S DISEASE. DO NOT TAKE WITH FOOD. 300 Jun 30, 2020 [id number] Jul 01, 2019 [facility] [place] [facility] CARBIDOPA 25MG/LEVODOPA 100MG TAB Discontinued TAKE 2 TABLETS BY MOUTH FOUR TIMES A DAY FOR PARKINSON'S DISEASE. DO NOT TAKE WITH FOOD. 240 Jun 24, 2020 [id number] Jun 26, 2019 [facility] CARBIDOPA 25MG/LEVODOPA 100MG TAB Discontinued TAKE 2 TABLETS BY MOUTH FOUR TIMES A DAY FOR PARKINSON'S DISEASE. DO NOT TAKE WITH FOOD. 240 Dec 25, 2019 [id number] May 15, 2019 [facility] A DIV CARBIDOPA 25MG/LEVODOPA 100MG TAB Discontinued TAKE 2 TABLETS BY MOUTH FOUR TIMES A DAY FOR PARKINSON'S DISEASE. DO NOT TAKE WITH FOOD. 240 Jun 07, 2019 [id number] Nov 18, 2018 [facility] CHOLECALCIFEROL 25MCG (1,000UNIT) TAB Active: Susp TA KE TWO TABLETS BY MOUTH ONCE A DAY FOR VITAMIN D DEFICIENCY 200 Nov 20, 2020 [id number] Dec 172019 [facility] CHOLECALCIFEROL 25MCG (1,000UNIT) TAB Discontinued TA KE TWO TABLETS BY MOUTH ONCE A DAY FOR VITAMIN D DEFICIENCY 200 Dec 25, 2019 [id number] October [facility] CHOLECALCIFEROL 25MCG (1,000UNIT) TAB Discontinued TA KE TWO TABLETS BY MOUTH ONCE A DAY FOR VITAMIN D DEFICIENCY 200 Oct 10, 2018 [id number] Aug 172018 [facility] CLOPIDOGREL BISULFATE 75MG TAB Active: Susp TAKE ONE TABLET BY MOUTH ONCE A DAY TO PREVENT BLOOD CLOTS 90 Apr 24, 2020 [id number] Dec 19, 2019 [facility] CLOPIDOGREL BISULFATE 75MG TAB Discontinued TAKE ONE TABLET BY MOUTH ONCE A DAY TO PREVENT BLOOD CLOTS 90 Jun 01, 2019 [id number] Mar 13, 2019 [facility] DIPHENHYDRAMINE HCL 25MG CAP Non-VA TAKE 1 CAPSULE BY MOUTH EVERY 6 HOURS NEEDED Non-VA Documented by: KOURTNEY DANIELSON nted at: [facility] FLUDROCORTISONE ACETATE 0.1MG TAB Active TAKE ONE TABLET BY M OUTH ONCE A DAY 90 Nov 19, 2020 [id number] Nov 20, 2019 [facility] [place] FOLIC ACID 1MG TAB Non- VA TAKE ONE TABLET BY MOUTH ONCE A DAY N on-VA Documented by: KOURTNEY DANIELSON nted at: [facility] GABAPENTIN 300MG CAP Active TAKE 1 CAPSULE BY M OUTH 5 TIMES A DAY FOR PAIN AND TREMORS. 300 October 17, 2020 [id number] October 18, 2019 TARIQKOURTNEY [facility] GABAPENTIN 300MG CAP Discontinued TAKE ONE CAPSULE BY MOUTH FOUR TIMES A DAY FOR PAIN AND TREMORS. 240 Jan 08, 2020 [id number] Oct 14, 2019 [facility] [place] GABAPENTIN 300MG CAP Discontinued TAKE ONE CAPSULE BY MOUTH FOUR TIMES A DAY FOR PAIN AND TREMORS. 240 Mar 08, 2019 [id number] Jan 07, 2019 [facility] [place] HYDROCODONE 10MG/ACETAMINOPHEN 325MG TAB Active TAKE ONE TABLET (10/325MG) BY MOUTH THREE TIMES A DAY NEEDED FOR PAIN CAUTION: DO NOT EXCEED 4000MG/DAY TOTAL OF ACETAMINOPHEN (APAP) FROM ALL MEDS 90 Dec 20, 2019 [id number] Nov 21, 2019 [facility] HYDROCODONE 10MG/ACETAMINOPHEN 325MG TAB Discontinued TAKE ONE TABLET (10/325MG) BY MOUTH THREE TIMES A DAY NEEDED FOR PAIN CAUTION: DO NOT EXCEED 4000MG/DAY TOTAL OF ACETAMINOPHEN (APAP) FROM ALL MEDS 90 Sep 17, 2 020 [id number] Sep 04, 2019 [facility] [place] HYDROCODONE 10MG/ACETAMINOPHEN 325MG TAB Discontinued TAKE ONE TABLET BY MOUTH THREE TIMES A DAY NEEDED FOR PAIN CAUTION: DO NOT EXCEED 4000MG/DAY TOTAL OF ACETAMINOPHEN (APAP) FROM ALL MEDS 90 Jul 26, 2019 [id number] Jun 26, 2019 [facility] [place] HYDROCODONE 10MG/ACETAMINOPHEN 325MG TAB Discontinued TAKE ONE TABLET BY MOUTH THREE TIMES A DAY NEEDED FOR PAIN CAUTION: DO NOT EXCEED 4000MG/DAY TOTAL OF ACETAMINOPHEN (APAP) FROM ALL MEDS 90 Jun 27, 2019 [id number] May 29, 2019 KOURTNEY DANIELSON [facility] [place] HYDROCODONE 10MG/ACETAMINOPHEN 325MG TAB Discontinued TAKE ONE TABLET BY MOUTH THREE TIMES A DAY NEEDED FOR PAIN CAUTION: DO NOT EXCEED 4000MG/DAY TOTAL OF ACETAMINOPHEN (APAP) FROM ALL MEDS 90 May 08, 2019 [id number] Apr 08, 2019 [facility] [place] HYDROCODONE 10MG/ACETAMINOPHEN 325MG TAB Discontinued TAKE ONE TABLET BY MOUTH THREE TIMES A DAY NEEDED FOR PAIN CAUTION: DO NOT EXCEED 4000MG/DAY TOTAL OF ACETAMINOPHEN (APAP) FROM ALL MEDS 90 Mar 28, 2019 [id number] Feb 26, 2019 [facility] [place] HYDROCODONE 10MG/ACETAMINOPHEN 325MG TAB Discontinued TAKE ONE TABLET BY MOUTH THREE TIMES A DAY NEEDED FOR PAIN CAUTION: DO NOT EXCEED 4000MG/DAY TOTAL OF ACETAMINOPHEN (APAP) FROM ALL MEDS 90 Feb 06, 2019 [id number] Jan 07, 2019 [facility] [place] HYDROCODONE 10MG/ACETAMINOPHEN 325MG TAB Discontinued TAKE ONE TABLET BY MOUTH THREE TIMES A DAY NEEDED FOR PAIN CAUTION: DO NOT EXCEED 4000MG/DAY TOTAL OF ACETAMINOPHEN (APAP) FROM ALL MEDS 90 Dec 05, 2018 [id number] November 05, 2018 [facility] [place] HYDROCODONE 10MG/ACETAMINOPHEN 325MG TAB Discontinued TAKE ONE TABLET BY MOUTH THREE TIMES A DAY NEEDED FOR PAIN CAUTION: DO NOT EXCEED 4000MG/DAY TOTAL OF ACETAMINOPHEN (APAP) FROM ALL MEDS 90 October 25, 2018 [id number] Sep 25, 2018 [facility] [place] HYDROCODONE 10MG/ACETAMINOPHEN 325MG TAB TAKE ONE TABLET (10/325MG) BY MOUTH THREE TIMES A DAY NEEDED FOR PAIN CAUTION: DO NOT EXCEED 4000MG/DAY TOTAL OF ACETAMINOPHEN (APAP) FROM ALL MEDS 90 November 16, 2019 [id number] October 18, 2019 KOURTNEY DANIELSON [facility] METHOTREXATE NA 2.5MG TAB Active TAKE SEVEN TABLETS BY MOUTH EVERY WEEK October 17, 2020 [id number] November 04, 2019 [facility] METHOTREXATE NA 2.5MG TAB Discontinued TAKE SEVEN TABLETS BY MOUTH EVERY WEEK 90 May 09, 2020 [id number] Aug 16, 2019 NASH KULKARNI [facility] METHOTREXATE NA 2.5MG TAB Discontinued TAKE SEVEN TABLETS BY MOUTH EVERY WEEK 90 Aug 04, 2019 [id number] Feb 22, 2019 JASONYOU [facility] [place] NORTRIPTYLINE HCL 10MG CAP Active TAKE 2 CAPSULES BY MO UTH AT BEDTIME NEEDED 120 Apr 02, 2020 [id number] Nov 20, 2019 [facility] [place] NORTRIPTYLINE HCL 10MG CAP Discontinued TAKE 2 CAPSUL ES BY MOUTH AT BEDTIME NEEDED 120 Mar 20, 2019 [id number] Jan 23, 2019 [facility] OMEPRAZOLE 20MG CAP,EC Active TAKE 1 CAPSULE BY MOUTH EVERY MORNING TO LOWER STOMACH ACID. TAKE 30 MINUTES PRIOR TO FOOD. 90 October 17, 2020 [id number] October 21, 2019 [facility] OMEPRAZOLE 20MG CAP,EC Discontinued TAKE 1 CAPSULE BY MOUTH EVERY MORNING TO LOWER STOMACH ACID. TAKE 30 MINUTES PRIOR TO FOOD. 90 Oct 02, 2019 [id number] Aug 02, 2019 [facility] [place] PREDNISONE 1MG TAB Discontinued TAKE THREE TABLETS B Y MOUTH ONCE A DAY FOR INFLAMMATION AND IMMUNE RESPONSE. TAKE WITH FOOD OR MILK. 270 Fe 2019 [id number] Apr 24, 2019 [facility] PREDNISONE 1MG TAB Discontinued TAKE FOUR TABLETS BY MOUTH ONCE A D AY 360 Apr 22, 2019 [id number] Jan 24, 2019 [facility]UE [facility] [place] PREDNISONE 1MG TAB Discontinued TAKE FOUR TABLETS BY MOUTH ONCE A D AY 360 Dec 29, 2018 [id number] Oct 01, 2018 NASH KULKARNI V [facility] PREDNISONE 1MG TAB TAKE THREE TABLETS B Y MOUTH ONCE A DAY FOR INFLAMMATION AND IMMUNE RESPONSE. TAKE WITH FOOD OR MILK. 270 Ap r 2019 [id number] Jul 13, 2019 [facility] [place] PREDNISONE 5MG TAB Discontinued TAKE ONE TABLET BY MOUTH ONCE A DAY WITH FOOD 60 Aug 01, 2019 [id number] Sep 25, 2018 KOURTNEY DANIELSON [facility] [place] ROPINIROLE HCL 1MG TAB Active TAKE ONE TABLET BY MOUTH AT BED TIME 90 October 17, 2020 [id number] Nov 25, 2019 KOURTNEY DANIELSON [facility] ROPINIROLE HCL 1MG TAB Discontinued TAKE ONE TABLET BY MOUTH AT BED TIME 90 Dec 05, 2019 [id number] Sep 03, 2019 DEJESUS,ROSCBALDO Abdiaziz [facility] [place] ROPINIROLE HCL 1MG TAB Discontinued TAKE ONE TABLET BY MOUTH AT BED TIME 90 Dec 13, 2018 [id number] Sep 12, 2018 [facility] [place] TAMSULOSIN HCL 0.4MG CAP Active: Susp TAKE 1 CAPSULE BY MOUTH ONCE A DAY FOR PROSTATE. TAKE AT THE SAME TIME EACH DAY WITH FOOD. 90 Sep 30 1 [id number] Dec 20, 2019 TARIQKOURTNEY SMITH [facility] [place] TAMSULOSIN HCL 0.4MG CAP Discontinued TAKE 1 CAPSULE BY MOUTH ONCE A DAY FOR PROSTATE. TAKE AT THE SAME TIME EACH DAY WITH FOOD. 90 Sep 12 0 [id number] Jun 24, 2019 TEOLIS [facility] [place] Problems (Conditions): All historical and current Section Date Range: From patient's date of to the date document was create d. This section includes a list of Problems (Conditions) know n to [facility] for the patient. It includes both active and inacti ve problems (conditions). The data comes from all [place] treatment facilities. Problem Status Problem Code Date of Onset Date of Resolution Comm ent(s) Provider Source Abnormal radiologic density Active [id number] KOURTNEY WALKER [facility] [place] Allergic rhinitis Active [id number] LADY SALAZAR [facility] [place] Anemia Active [id number] [facility] [place] [facility] Chest pain (SNOMED CT 85957080) Active 786.50 [facility] [place] Chondrocalcinosis Active [id number] YOU GOMEZ [facility] [place] Chronic obstructive lung disease Active 84794907 [facility] [place] [facility] Coronary artery disease Active 40826949 Angella LINDSEY [facility] [place] Cough Active [id number] LADY SALAZAR [facility] [place] Cough (SNOMED CT 75696031) Active 786.2 KOURTNEY BARRON [facility] [place] Dysarthria (SNOMED CT 6118449) Active 784.51 M KOURTNEY WONG [facility] [place] Dyspnea (SNOMED CT 336001068) Active 786.09 KOURTNEY BARKSDALE [facility] [place] [facility] Eruption due to drug Active 66894984 Abdiaziz DANIELSON TORY [facility] [place] Gastroesophageal reflux disease Active 100684599 KOURTNEY DANIELSON [facility] [place] Hallux valgus AND bunion Active 493304644 ALEXANDRO DEISY Dangelo [facility] [place] Joint pain (SNOMED CT 41880482) Active 719.40 DEISY CONTRERAS [facility] [place] Joint swelling (SNOMED CT 492188492) Active 719.00 KOURTNEY DANIELSON [facility] [place] Knee pain Active [id number] JENNIFER LINDSEY [facility] [place] Muscle weakness (SNOMED CT 01579767) Active 728.87 KOURTNEY DANIELSON [facility] [place] Neuropathy Active [id number] KOURTNEY DANIELSON RN [facility] [place] Osteoarthritis Active 715.36 DYAN SERVIN [facility] [place] Parkinson's disease Active 55333415 ETHAN DANIELSON [facility] [place] Peripheral Neuropathy Active 356.9 DASARAJU,P URUSHOTHAMA V [facility] [place] [facility] Personal History of Exposure to Agent Aurora Active V15.89 DIANEDEISY [facility] [place] Polyp of colon (SNOMED CT 20092187) Active 211.3 TARIQKOURTNEY [facility] [place] Restless legs Active 24749450 PATRICK WHITE [facility] [place] Rheumatoid arthritis Active 34815174 Abdiaziz DANIELSON TORY [facility] [place] Screening, Malignancy Active V76.89 LISSETH TOLEDO [facility] [place] Sleep apnea Active 62858965 KOURTNEY DANIELSON RN [facility] [place] Synovial cyst of popliteal space (SNOMED CT 94543049) Active 727.51 KOURTNEY DANIELSON [facility] [place] [facility] Tobacco dependence in remission Active 391011238 KOURTNEY DANIELSON [facility] [place] Tobacco use Active 835950372 JENNIFER LINDSEY [facility] [place] Tremor Active 78337379 JENNIFER LINDSEY Toshia RUMA K S [facility] [place] Unresolved Active 63029836 JENNIFER LINDSEY N [facility] [place] Unresolved Active [id number] JENNIFER LINDSEY N [facility] [place] Radiology Reports: +/- 30 days of the encounter No Data Provided for This Section Pathology Reports: +/- 30 days of the encounter No Data Provided for This Section Encounter Notes: All associated encounter notes This section contains the clinical notes associated to the Encounter. Date/Time Encounter Note(s) Provider Source November 05, 2019 09:09 AM CARE MANAGEMENT NOTE: LOCAL TITLE: EK-PACT CARE MANAGEMENT STANDARD TITLE: CARE MANAGEMENT NOTE DATE OF NOTE: NOVEMBER 05, 2019@09:09 ENTRY DATE: NOVEMBER 05, 2019@09:09:27 AUTHOR: JENNIFER LINDSEY EXP COSIGNER: URGENCY: STATUS: COMPLETED Received from [facility] Dated: 10-27-2019 CT Chest Impression: 1. Changes throughout both lungs which a re likely due to sequelae of prior infection, and potentially a nontuberculous mycobacterial infection. There are 2 areas of spiculated nodularity associa momo with the areas of presumed postinfectious change, these are likely areas of nodular scarring. Recommend follows low-dose CT chest in 6 months to confirm stability Italo Pina MD to provider to med rec /sofya/ JENNIFER LINDSEY LPN Signed: 11/05/2019 09:13 Receipt Acknowledged By: 11/05/2019 09:21 /sofya/ KOURTNEY LUCIOP JENNIFER LINDSEY [facility] [place]
--- OUTSIDE RECORDS SUMMARY | 2019-12-04 21:55 | XMS REPORT | Encounter Summary ---
Author Author Department of [facility] CARLOS sweeney Organization Department of [facility] Address [address] [place] [address] Phone Unavailable Care Team Providers Care Broommaker Name Role Phone TARIQKJ PCP Unavailable Insurance [...] PLAN G MEDICARE SUPPLEMENT Dec PLAN G [id number] [phone] ACRLOS ROMANO PATIENT MEDICARE (WNR) MEDICARE (M) PART A Dec 16, 2014 PART A [id number] CARLOS ROMANO PATIENT MEDICARE (WNR) MEDICARE (M) PART B Dec 16, 2014 PART B [id number] CARLOS ROMANO PATIENT MEDICO DENTAL INSURANCE DENTAL VISIONHEARING Dec 16, 2014 DENTAL VISIONHEAR [id number] [phone] CARLOS ROMANO PATIENT Selected Encounter This section includes the information on record at VA for the Encounter. Date/Time Encounter Type Encounter Description Reason Provider Source Oct 15, 2019 03:40 PM Outpatient Encounter ADMIN PAT ACTIVTIES (MASNO NCT) [facility] [place] [facility] Encounter Template Text not used by VA Assessments - Encounter Diagnoses No Data Provided for This Section Plan of Treatment: Future Appointments (+ 6 months) and Future Tests (+/- 45 day s) The Plan of Treatment section includes future care activities for the patient fr om all [place] treatment facilities. This section includes future appointments and fu ture orders which are active, pending or scheduled. Future Appointments This section includes appointments that were scheduled t o occur 6 months from the date of the Encounter, up to a maximum of 20 appointme nts. The data comes from all [facility]. Appointment Date/Time Appointment Type Appointment Facili ty Name October 17, 2019 09:00 AM AMBULATORY - MEDICINE [facility] October 27, 2019 09:45 AM AMBULATORY - NONE [facility] [place] Nov 20, 2019 05:00 PM AMBULATORY - MEDICINE [facility] Nov 24, 2019 11:20 AM AMBULATORY - NONE [facility] [place] [facility] Dec 02, 2019 10:30 AM AMBULATORY - NONE [facility] [place] [facility] Dec 03, 2019 12:30 PM AMBULATORY - NONE [facility] Dec 04, 2019 10:45 AM AMBULATORY - MEDICINE [facility] Dec 10, 2019 01:30 PM [facility] - [facility]IC[facility] Jan 06, 2020 10:30 AM AMBULATORY - MEDICINE [facility] Active, Pending, and Scheduled Orders This [...] the Encounter. The data comes from all [facility]. Test Date/Time Test Type Test Details Facility Name Sep 03, 2019 03:01 PM Consult Order [facility] OPTOMETRY-[id number] Cons Forming Press Operator's Choice [facility] [place] [facility] Surgical Procedures: All associated [...] Adverse Reactions (ADR s) on record with [place] for the patient. The data comes from a ll [place] treatment facilities. It does not list Allergies/ADRs that were removed or entered in error. Some allergies/ADRs may be reported in t he Immunization section. Allergen Event Date Event Type Reaction(s) Severity Source PANTOPRAZOLE Oct 01, 2018 Propensity to adverse reactions to drug (disorder) Eruption [facility] PENICILLIN Jul 17, 2012 Propensity to adverse reactions to drug (disorder) Peripheral edema [facility] Medications: VA dispensed (-15 months) and Non-VA Documented (Obtained Outside V A) Section Date Range: 1) prescriptions processed by a VA pharmacy in the last 15 m [facility], and 2) all medications recorded in the [place] medical record as "non-VA medic ations". Pharmacy terms refer to [place] pharmacy's work on prescriptions. VA patient s are advised to take their medications as instructed by their health care team. The data comes from all [place] treatment facilities. Glossary of Pharmacy Terms:Active = A prescription that can be filled at the local [place] pharmacy.Active: On Hold = An active prescription that will not be filled until pharmacy resolves the issue.Active: Susp = An active prescription that is not scheduled to be filled yet.Clinic Order = A medication received during a visit to a [place] clinic or emergency department (currently not available).Discontinued [...] FOR INHALATION ONCE 1 Nov 16, 2018 [id number] October 17, 2018 KJ POTTER [facility] ALBUTEROL SO4 90MCG/ACTUAT (CFC-F) INHL,ORAL,6.7GM Active INHALE 2 PUFFS BY ORAL INHALATION FOUR TIMES A DAY NEEDED - RINSE MOUTHPIECE FREQUENTLY TO PREVENT CLOGGING 1 Apr 24, 2020 [id number] October 18, 2019 KJ POTTER [facility] ALBUTEROL SO4 90MCG/ACTUAT (CFC-F) INHL,ORAL,6.7GM Discontin ued INHALE 2 PUFFS BY ORAL INHALATION FOUR TIMES A DAY NEEDED - RINSE MOUTHPIECE FREQUENTLY TO PREVENT CLOGGING 2 Apr 24, 2020 [id number] Apr 24, 2019 KJ POTTER [facility] BUDESONIDE 160MCG/FORMOTEROL FUM 4.5MCG/SPRAY INHL,ORAL,10.2 GM Active INHALE 2 PUFFS BY ORAL INHALATION TWO TIMES A DAY FOR BREATHING. SHAKE WELL. RINSE MOUTH AND SPIT AFTER EACH USE. 2 Apr 24, 2020 [id number] October 17, 2019 KJ JOSHI [facility] CALCIUM 500MG (CA CARBONATE-1.25GM) TAB Active: Susp TAKE ONE TABLET BY MOUTH TWO TIMES A DAY 180 Nov 20, 2020 [id number] Jan 09, 2020 KJ POTTER [facility] CALCIUM 500MG (CA CARBONATE-1.25GM) TAB Discontinued TAKE ONE TABLET BY MOUTH TWO TIMES A DAY 180 Jan 08, 2020 [id number] October 21, 2019 KJ POTTER [facility] [place] [facility] CALCIUM 500MG (CA CARBONATE-1.25GM) TAB Discontinued TAKE ONE TABLET BY MOUTH TWO TIMES A DAY 180 Dec 29, 2018 [id number] Oct 01, 2018 [facility] CARBIDOPA 25MG/LEVODOPA 100MG TAB Active TAKE 2 TABLETS BY MOUTH FOUR TIMES A DAY FOR PARKINSON'S DISEASE. DO NOT TAKE WITH FOOD. 240 Nov 24, 2020 [id number] Nov 27, 2019 ALLEGRA HOWE [facility] [place] [facility] CARBIDOPA 25MG/LEVODOPA 100MG TAB Discontinued TAKE T WO TABLETS BY MOUTH FIVE TIMES DAILY FOR PARKINSON'S DISEASE. DO NOT TAKE WITH FOOD. 600 Jul 02, 2020 [id number] Nov 19, 2019 [facility] [place] [facility] CARBIDOPA 25MG/LEVODOPA 100MG TAB Discontinued TAKE 2 TABLETS BY MOUTH FIVE TIMES DAILY FOR PARKINSON'S DISEASE. DO NOT TAKE WITH FOOD. 300 Jun 30, 2020 [id number] Jul 01, 2019 [facility] [place] [facility] CARBIDOPA 25MG/LEVODOPA 100MG TAB Discontinued TAKE 2 TABLETS BY MOUTH FOUR TIMES A DAY FOR PARKINSON'S DISEASE. DO NOT TAKE WITH FOOD. 240 Jun 24, 2020 [id number] Jun 26, 2019 [facility] [place] [facility] CARBIDOPA 25MG/LEVODOPA 100MG TAB Discontinued TAKE 2 TABLETS BY MOUTH FOUR TIMES A DAY FOR PARKINSON'S DISEASE. DO NOT TAKE WITH FOOD. 240 Dec 25, 2019 [id number] May 15, 2019 [facility] CARBIDOPA 25MG/LEVODOPA 100MG TAB Discontinued TAKE 2 TABLETS BY MOUTH FOUR TIMES A DAY FOR PARKINSON'S DISEASE. DO NOT TAKE WITH FOOD. 240 Jun 07, 2019 [id number] Nov 18, 2018 [facility] [place] [facility] CHOLECALCIFEROL 25MCG (1,000UNIT) TAB Active: Susp TA KE TWO TABLETS BY MOUTH ONCE A DAY FOR VITAMIN D DEFICIENCY 200 Nov 20, 2020 [id number] Dec 172019 [facility] CHOLECALCIFEROL 25MCG (1,000UNIT) TAB Discontinued TA KE TWO TABLETS BY MOUTH ONCE A DAY FOR VITAMIN D DEFICIENCY 200 Dec 25, 2019 [id number] October [facility] [place] [facility] CHOLECALCIFEROL 25MCG (1,000UNIT) TAB Discontinued TA KE TWO TABLETS BY MOUTH ONCE A DAY FOR VITAMIN D DEFICIENCY 200 Oct 10, 2018 [id number] Aug 172018 [facility] CLOPIDOGREL BISULFATE 75MG TAB Active: Susp TAKE ONE TABLET BY MOUTH ONCE A DAY TO PREVENT BLOOD CLOTS 90 Apr 24, 2020 [id number] Dec 19, 2019 [facility] CLOPIDOGREL BISULFATE 75MG TAB Discontinued TAKE ONE TABLET BY MOUTH ONCE A DAY TO PREVENT BLOOD CLOTS 90 Jun 01, 2019 [id number] Mar 13, 2019 [facility] [place] DIPHENHYDRAMINE HCL 25MG CAP Non-VA TAKE 1 CAPSULE BY MOUTH EVERY 6 HOURS NEEDED Non-VA Documented by: KJ POTTER nted at: [facility] FLUDROCORTISONE ACETATE 0.1MG TAB Active TAKE ONE TABLET BY M OUTH ONCE A DAY 90 Nov 19, 2020 [id number] Nov 20, 2019 [facility] [place] [facility] FOLIC ACID 1MG TAB Non- VA TAKE ONE TABLET BY MOUTH ONCE A DAY N on-VA Documented by: KJ POTTER nted at: [facility] GABAPENTIN 300MG CAP Active TAKE 1 CAPSULE BY M OUTH 5 TIMES A DAY FOR PAIN AND TREMORS. 300 October 17, 2020 [id number] October 18, 2019 [facility] GABAPENTIN 300MG CAP Discontinued TAKE ONE CAPSULE BY MOUTH FOUR TIMES A DAY FOR PAIN AND TREMORS. 240 Jan 08, 2020 [id number] Oct 14, 2019 [facility] GABAPENTIN 300MG CAP Discontinued TAKE ONE CAPSULE BY MOUTH FOUR TIMES A DAY FOR PAIN AND TREMORS. 240 Mar 08, 2019 [id number] Jan 07, 2019 [facility] [place] [facility] HYDROCODONE 10MG/ACETAMINOPHEN 325MG TAB Active TAKE ONE TABLET (10/325MG) BY MOUTH THREE TIMES A DAY NEEDED FOR PAIN CAUTION: DO NOT EXCEED 4000MG/DAY TOTAL OF ACETAMINOPHEN (APAP) FROM ALL MEDS 90 Dec 20, 2019 [id number] Nov 21[facility] 2019 [facility] HYDROCODONE 10MG/ACETAMINOPHEN 325MG TAB Discontinued TAKE ONE TABLET (10/325MG) BY MOUTH THREE TIMES A DAY NEEDED FOR PAIN CAUTION: DO NOT EXCEED 4000MG/DAY TOTAL OF ACETAMINOPHEN (APAP) FROM ALL MEDS 90 Sep 17, 2 020 [id number] Sep 04, 2019 [facility] [place] [facility] HYDROCODONE 10MG/ACETAMINOPHEN 325MG TAB Discontinued TAKE ONE TABLET BY MOUTH THREE TIMES A DAY NEEDED FOR PAIN CAUTION: DO NOT EXCEED 4000MG/DAY TOTAL OF ACETAMINOPHEN (APAP) FROM ALL MEDS 90 Jul 26, 2019 [id number] Jun 26, 2019 [facility] [place] [facility] HYDROCODONE 10MG/ACETAMINOPHEN 325MG TAB Discontinued TAKE ONE TABLET BY MOUTH THREE TIMES A DAY NEEDED FOR PAIN CAUTION: DO NOT EXCEED 4000MG/DAY TOTAL OF ACETAMINOPHEN (APAP) FROM ALL MEDS 90 Jun 27, 2019 [id number] May 29, 2019 [facility] [place] [facility] HYDROCODONE 10MG/ACETAMINOPHEN 325MG TAB Discontinued TAKE ONE TABLET BY MOUTH THREE TIMES A DAY NEEDED FOR PAIN CAUTION: DO NOT EXCEED 4000MG/DAY TOTAL OF ACETAMINOPHEN (APAP) FROM ALL MEDS 90 May 08, 2019 [id number] Apr 08, 2019 [facility] [place] [facility] HYDROCODONE 10MG/ACETAMINOPHEN 325MG TAB Discontinued TAKE ONE TABLET BY MOUTH THREE TIMES A DAY NEEDED FOR PAIN CAUTION: DO NOT EXCEED 4000MG/DAY TOTAL OF ACETAMINOPHEN (APAP) FROM ALL MEDS 90 Mar 28, 2019 [id number] Feb 26, 2019 [facility] [place] [facility] HYDROCODONE 10MG/ACETAMINOPHEN 325MG TAB Discontinued TAKE ONE TABLET BY MOUTH THREE TIMES A DAY NEEDED FOR PAIN CAUTION: DO NOT EXCEED 4000MG/DAY TOTAL OF ACETAMINOPHEN (APAP) FROM ALL MEDS 90 Feb 06, 2019 [id number] Jan 07, 2019 [facility] [place] [facility] HYDROCODONE 10MG/ACETAMINOPHEN 325MG TAB Discontinued TAKE ONE TABLET BY MOUTH THREE TIMES A DAY NEEDED FOR PAIN CAUTION: DO NOT EXCEED 4000MG/DAY TOTAL OF ACETAMINOPHEN (APAP) FROM ALL MEDS 90 Dec 05, 2018 [id number] November 05, 2018 [facility] [place] [facility] HYDROCODONE 10MG/ACETAMINOPHEN 325MG TAB Discontinued TAKE ONE TABLET BY MOUTH THREE TIMES A DAY NEEDED FOR PAIN CAUTION: DO NOT EXCEED 4000MG/DAY TOTAL OF ACETAMINOPHEN (APAP) FROM ALL MEDS 90 October 25, 2018 [id number] Sep 25, 2018 [facility] [place] [facility] HYDROCODONE 10MG/ACETAMINOPHEN 325MG TAB TAKE ONE TABLET (10/325MG) BY MOUTH THREE TIMES A DAY NEEDED FOR PAIN CAUTION: DO NOT EXCEED 4000MG/DAY TOTAL OF ACETAMINOPHEN (APAP) FROM ALL MEDS 90 November 16, 2019 [id number] October 18, 2019 TARIQKJ [facility] METHOTREXATE NA 2.5MG TAB Active TAKE SEVEN TABLETS BY MOUTH EVERY WEEK 90 October 17, 2020 [id number] November 04, 2019 [facility] METHOTREXATE NA 2.5MG TAB Discontinued TAKE SEVEN TABLETS BY MOUTH EVERY WEEK 90 May 09, 2020 [id number] Aug 16, 2019 NASH KULKARNI [facility] METHOTREXATE NA 2.5MG TAB Discontinued TAKE SEVEN TABLETS BY MOUTH EVERY WEEK 90 Aug 04, 2019 [id number] Feb 22, 2019 YOU GOMEZ [facility] [place] [facility] NORTRIPTYLINE HCL 10MG CAP Active TAKE 2 CAPSULES BY MO UTH AT BEDTIME NEEDED 120 Apr 02, 2020 [id number] Nov 20, 2019 [facility] [place] [facility] NORTRIPTYLINE HCL 10MG CAP Discontinued TAKE 2 CAPSUL ES BY MOUTH AT BEDTIME NEEDED 120 Mar 20, 2019 [id number] Jan 23, 2019 [facility] OMEPRAZOLE 20MG CAP,EC Active TAKE 1 CAPSULE BY MOUTH EVERY MORNING TO LOWER STOMACH ACID. TAKE 30 MINUTES PRIOR TO FOOD. 90 October 17, 2020 [id number] October 21, 2019 [facility] OMEPRAZOLE 20MG CAP,EC Discontinued TAKE 1 CAPSULE BY MOUTH EVERY MORNING TO LOWER STOMACH ACID. TAKE 30 MINUTES PRIOR TO FOOD. 90 Oct 02, 2019 [id number] Aug 02, 2019 [facility] [place] [facility] PREDNISONE 1MG TAB Discontinued TAKE THREE TABLETS B Y MOUTH ONCE A DAY FOR INFLAMMATION AND IMMUNE RESPONSE. TAKE WITH FOOD OR MILK. 270 Fe b 2019 [id number] Apr 24, 2019 [facility] PREDNISONE 1MG TAB Discontinued TAKE FOUR TABLETS BY MOUTH ONCE A D AY 360 Apr 22, 2019 [id number] Jan 24, 2019 BLUE DAVIES [facility] [place] [facility] PREDNISONE 1MG TAB Discontinued TAKE FOUR TABLETS BY MOUTH ONCE A D AY 360 Dec 29, 2018 [id number] Oct 01, 2018 [facility] PREDNISONE 1MG TAB TAKE THREE TABLETS B Y MOUTH ONCE A DAY FOR INFLAMMATION AND IMMUNE RESPONSE. TAKE WITH FOOD OR MILK. 270 Ap r 2019 [id number] Jul 13, 2019 [facility] [place] [facility] PREDNISONE 5MG TAB Discontinued TAKE ONE TABLET BY MOUTH ONCE A DAY WITH FOOD 60 Aug 01, 2019 [id number] Sep 25, 2018 KJ POTTER [facility] [place] [facility] ROPINIROLE HCL 1MG TAB Active TAKE ONE TABLET BY MOUTH AT BED TIME 90 October 17, 2020 [id number] Nov 25, 2019 KJ POTTER [facility] ROPINIROLE HCL 1MG TAB Discontinued TAKE ONE TABLET BY MOUTH AT BED TIME 90 Dec 05, 2019 [id number] Sep 03, 2019 KRYSTAL DEJESUS [facility] [place] [facility] ROPINIROLE HCL 1MG TAB Discontinued TAKE ONE TABLET BY MOUTH AT BED TIME 90 Dec 13, 2018 [id number] Sep 12, 2018 [facility] [place] [facility] TAMSULOSIN HCL 0.4MG CAP Active: Susp TAKE 1 CAPSULE BY MOUTH ONCE A DAY FOR PROSTATE. TAKE AT THE SAME TIME EACH DAY WITH FOOD. 90 Sep 30 1 [id number] Dec 20, 2019 TARIQ,DANA [facility] [place] [facility] TAMSULOSIN HCL 0.4MG CAP Discontinued TAKE 1 CAPSULE BY MOUTH ONCE A DAY FOR PROSTATE. TAKE AT THE SAME TIME EACH DAY WITH FOOD. 90 Sep 12 0 [id number] Jun 24, 2019 KYLE BRUCETHIA [facility] [place] [facility] Problems (Conditions): All historical and current Section Date Range: From patient's date of to the date document was create d. This section includes a list of Problems (Conditions) know n to [facility] for the patient. It includes both active and inacti ve problems (conditions). The data comes from all [place] treatment facilities. Problem Status Problem Code Date of Onset Date of Resolution Comm ent(s) Provider Source Abnormal radiologic density Active [id number] [facility] [place] [facility] Allergic rhinitis Active 57296359 LADY SALAZAR [facility] [place] [facility] Anemia Active 514035848 [facility] [place] [facility] Chest pain (SNOMED CT 48313421) Active 786.50 [facility] [place] [facility] Chondrocalcinosis Active [id number] YOU GOMEZ [facility] [place] [facility] Chronic obstructive lung disease Active 27524684 [facility] [place] [facility] Coronary artery disease Active 86960639 Angella LINDSEY NICHOLAS Pope [facility] [place] [facility] Cough Active 33673262 LADY SALAZAR [facility] [place] [facility] Cough (SNOMED CT 30856553) Active 786.2 KJ BARRON [facility] [place] [facility] Dysarthria (SNOMED CT 8976534) Active 784.51 M KJ WONG [facility] [place] [facility] Dyspnea (SNOMED CT 837729815) Active 786.09 KJ BARKSDALE [facility] [place] [facility] Eruption due to drug Active 52645300 Abdiaziz POTTER TORY [facility] [place] [facility] Gastroesophageal reflux disease Active 978583692 KJ POTTER [facility] [place] [facility] Hallux valgus AND bunion Active 354299691 ALEXANDRO DEISY Dangelo [facility] [place] [facility] Joint pain (SNOMED CT 74262025) Active 719.40 DEISY CONTRERAS Royce [facility] [place] [facility] Joint swelling (SNOMED CT 699832758) Active 719.00 KJ POTTER [facility] [place] [facility] Knee pain Active 76275714 ROSALIAJENNIFER [facility] [place] [facility] Muscle weakness (SNOMED CT 94897540) Active 728.87 KJ POTTER [facility] [place] [facility] Neuropathy Active 680319567 TARIQKJ DAKSHAChad [facility] [place] Osteoarthritis Active 715.36 DYAN SERVIN [facility] [place] [facility] Parkinson's disease Active 88734453 ETAHN POTTER [facility] [place] [facility] Peripheral Neuropathy Active 356.9 DASARAJU,P URUSHOTHAMA [facility] [place] [facility] Personal History of Exposure to Agent Ashley Active V15.89 DEISY CONTRERAS Royce [facility] [place] [facility] Polyp of colon (SNOMED CT 89876660) Active 211.3 TARIQKJ SMITH [facility] [place] [facility] Restless legs Active 05426908 PATRICK WHITE [facility] [place] [facility] Rheumatoid arthritis Active 82707599 Abdiaziz POTTER [facility] [place] [facility] Screening, Malignancy Active V76.89 LISSETH TOLEDO [facility] [place] [facility] Sleep apnea Active 81750310 KJ POTTER MANDEEP [facility] [place] [facility] Synovial cyst of popliteal space (SNOMED CT 75119138) Active 727.51 KJ POTTER [facility] [place] [facility] Tobacco dependence in remission Active 370209140 KJ POTTER [facility] [place] [facility] Tobacco use Active 452367471 JENNIFER LINDSEY CAROLYN [facility] [place] [facility] Tremor Active 05793257 JENNIFER LINDSEY K S [facility] [place] [facility] Unresolved Active 86184167 JENNIFER LINDSEYER N [facility] [place] [facility] Unresolved Active 65600528 JENNIFER LINDSEYER N [facility] [place] [facility] Radiology Reports: +/- 30 days of the encounter No Data Provided for This Section Pathology Reports: +/- 30 days of the encounter No Data Provided for This Section Encounter Notes: All associated encounter notes This section contains the clinical notes associated to the Encounter. Date/Time Encounter Note(s) Provider Source Oct 15, 2019 03:40 PM SOCIAL WORK NOTE: LOCAL TITLE: [facility] NOTE STANDARD TITLE: SOCIAL WORK NOTE DATE OF NOTE: OCT 15, 2019@15:40 ENTRY DATE: OCT 15, 2019@15:56:53 AUTHOR: ROSANNE SAENZ EXP COSIGNER: URGENCY: STATUS: COMPLETED Hello, My name is Rosanne Saenz. Im from the [facility]. Were making calls to check in on Veterans just to see how youre doing during these times of change to our daily lives. Are you doing ok sir/maam? Yes Are you getting enough to eat? Yes Are you getting any exercise? Like going outside for a walk. Yes Try not to go to public places, but if you must, try to maintain a distance of at least 6 feet between you and others. If you have hand email campaign manager, be sure to use it often. Also, wash your hands regularly for at least 20 seconds each time. Tappen reports he is able to get groceries and other supplies as needed. He repots they are practicing social and have masks to wear when they go outside. reported "everythign is good" and voiced no other psychosocial concerns at this time. was provided with this contact information and encouraged to call with any questions or concerns. /sofya/ ROSANNE SAENZ Ammonia Worker Signed: 10/15/2019 15:59 ROSANNE SAENZ [facility]
--- OUTSIDE RECORDS SUMMARY | 2019-12-04 21:55 | XMS REPORT | Encounter Summary ---
Author Author Department of [facility] CARLOS sweeney Organization Department of [facility] Address [address] [place] [address] Phone Unavailable Care Team Providers Care Senior Data Scientist Name Role Phone TARIQKJ PCP Unavailable Insurance [...] PLAN G MEDICARE SUPPLEMENT Dec PLAN G [id number] [phone] CARLOS ROMANO PATIENT MEDICARE (WNR) MEDICARE (M) PART A Dec 16, 2014 PART A [id number] CARLOS ROMANO PATIENT MEDICARE (WNR) MEDICARE (M) PART B Dec 16, 2014 PART B [id number] CARLOS ROMANO PATIENT MEDICO DENTAL INSURANCE DENTAL VISIONHEARING Dec 16, 2014 DENTAL VISIONHEAR [id number] [phone] CARLOS ROMANO PATIENT Selected Encounter This section includes the information on record at [facility] for the Encounter. Date/Time Encounter Type Encounter Description Reason Provider Source Aug 08, 2019 12:52 PM Outpatient Encounter ADMIN PAT ACTIVTIES (MASNO NCT) [facility] [place] IHE Encounter Template Text not used by VA Assessments - Encounter Diagnoses No Data Provided for This Section Plan of Treatment: Future Appointments (+ 6 months) and Future Tests (+/- 45 day s) The Plan of Treatment section includes future care activities for the patient fr om all PA treatment facilities. This section includes future appointments and fu ture orders which are active, pending or scheduled. Future Appointments This section includes appointments that were scheduled t o occur 6 months from the date of the Encounter, up to a maximum of 20 appointme nts. The data comes from all [facility]. Appointment Date/Time Appointment Type Appointment Facili ty Name October 17, 2019 09:00 AM AMBULATORY - MEDICINE [facility] October 27, 2019 09:45 AM AMBULATORY - NONE [facility] Nov 20, 2019 05:00 PM AMBULATORY - MEDICINE [facility] Nov 24, 2019 11:20 AM AMBULATORY - NONE [facility] Dec 02, 2019 10:30 AM AMBULATORY - NONE [facility] Dec 03, 2019 12:30 PM AMBULATORY - NONE [facility] Dec 04, 2019 10:45 AM AMBULATORY - MEDICINE [facility] Dec 10, 2019 01:30 PM AMBULATORY - MEDICINE [facility] Jan 06, 2020 10:30 AM AMBULATORY - MEDICINE [facility] IN Active, Pending, and Scheduled Orders This [...] the Encounter. The data comes from all [facility]. Test Date/Time Test Type Test Details Facility Name Aug 08, 2019 01:27 PM Consult Order TO-NEUROLOGY OUTPT -[id number] Cons [employer] Technician's Choice [facility] [place] [facility] Sep 03, 2019 03:01 PM Consult Order COMMUNITY CARE-EK EYE OPTOMETRY-[id number] Cons [employer] Surveying Technician's Choice [facility] [place] [facility] Surgical Procedures: All associated to the encounter No Data Provided for This Section Lab Results: +/- 30 days of the encounter This section includes the Chemistry and Hematology Lab R esults on record with VA for the patient. Radiology Reports and Pathology Report s are provided separately, in subsequent sections. Lab Results This section contains the Chemistry/Hematology Results juan t were resulted 30 days before or 30 days after the date of the Encounter. Date/Time Source Result Type Result - Unit Interpretation Reference Range Comment Aug 06, 2019 12:27 PM [facility] CBC & DIFF Specimen Type: BLOOD No comment entered. WBC 9.6 K/cmm 3.60-11.20 RBC 3.46 M/ul L 4.1-5.7 HGB 9.0 g/dl L 13.1-16.8 HCT 29.4 % L 38.2-48.4 MCV 85.0 fl 80.1-98.5 MCH 26.0 pg L 27.0-34.0 MCHC 30.6 g/dl L 33.0-36.0 PLATELET COUNT 506 K/cmm H 150-400 MPV 9.0 fl 7.5-11.2 RDW 16.1 % H 11.8-15.1 LYMPHOCYTES, AUTO% 10.0 % NEUTROPHILS, AUTO % 83.7 % MONOCYTES, AUTO% 4.9 % MONOCYTES, ABSOLUTE 0.5 K/cmm 0.19-0.80 NEUTROPHILS, ABSOLUTE 8.0 K/cmm 2.10-8.0 0 EOSINOPHILS, ABSOLUTE 0.1 K/cmm 0.00-0.6 0 BASOPHILS, ABSOLUTE 0.1 K/cmm 0.00-0.20 EOSINOPHILS, AUTO% 0.5 % BASOPHILS, AUTO% 0.6 % LYMPHOCYTES, ABSOLUTE 1.0 K/cmm 0.77-4.5 0 IMMATURE GRANS, ABSOLUTE 0.03 K/cmm 0.00 -0.05 IMMATURE GRANS, AUTO % 0.3 % Aug 06, 2019 12:27 PM [facility] COMPREHENSIVE METABOLI C PANEL Specimen Type: PLASMA Comment: For eGFR: eGFR results >60 are imprecise. Many variables affect the calculated result. Interpretation of eGFR results >60 must be monitored over time. *CREATININE 0.94 mg/dL 0.7-1.3 UREA NITROGEN mg/dL 16 mg/dL 9-25 GLUCOSE 104 mg/dL H 72-99 SODIUM 137 mEq/L 136-145 POTASSIUM 4.1 mEq/L 3.5-5.0 CALCIUM (mg/dL) 9.1 mg/dL 8.4-10.4 PROTEIN,TOTAL 7.6 g/dL 6.0-8.6 ALBUMIN 3.9 g/dl 3.4-5.0 TOTAL BILIRUBIN 0.3 mg/dL 0.2-1.2 ASPARTATE TRANSAMINASE 13 U/L 5-34 ALANINE AMINOTRANSFERASE <6 U/L L 8-40 ANION GAP 11.7 8-16 CHLORIDE 97 mEq/L L 98-107 CO2 28.3 mEq/L 22-31 ALKALINE PHOSPHATASE 82 U/L 40-150 EGFR >60 Aug 06, 2019 12:27 PM [facility] C-REACTIVE PROTEIN Specimen Type: SERUM No comment entered. C-REACTIVE PROTEIN 20.37 mg/dL H 0.0-0.5 Aug 06, 2019 12:27 PM [facility] ERYTHROCYTE SEDIMENTAT ION RATE Specimen Type: BLOOD No comment entered. ERYTHROCYTE SEDIMENTATION RATE 67 mm/hr H 0-20 Vital Signs: All taken on the encounter [...] Adverse Reactions (ADR s) on record with PA for the patient. The data comes from a ll PA treatment facilities. It does not list Allergies/ADRs that were removed or entered in error. Some allergies/ADRs may be reported in t Immunization section. Allergen Event Date Event Type Reaction(s) Severity Source PANTOPRAZOLE Oct 01, 2018 Propensity to adverse reactions to drug (disorder) Eruption [facility] 15 PENICILLIN Jul 17, 2012 Propensity to adverse reactions to drug (disorder) Peripheral edema [facility] 15 Medications: VA dispensed (-15 months) and Non-VA Documented (Obtained Outside A) Section Date Range: 1) prescriptions processed by a VA pharmacy in the last 15 m [facility], and 2) all medications recorded in the PA medical record as "non-VA medic ations". Pharmacy terms refer to PA pharmacy's work on prescriptions. VA patient s are advised to take their medications as instructed by their health care team. The data comes from all PA treatment facilities. Glossary of Pharmacy Terms:Active = A prescription that can be filled at the local PA pharmacy.Active: On Hold = An active prescription that will not be filled until pharmacy resolves the issue.Active: Susp = An active prescription that is not scheduled to be filled yet.Clinic Order = A medication received during a visit to a PA clinic or emergency department (currently not available).Discontinued = A prescription stopped by a PA provider. It is no longer available to be filled. = A prescription which is too old to fill. This does not refer to the expiration date of the medication in the container. Non-VA = A medication that came from someplace other than a PA pharmacy. This may be a prescription from either the PA or other providers that was filled outside the PA. Or, it may be an over the [...] FOR INHALATION ONCE 1 Nov 16, 2018 [id number] October 17, 2018 KJ POTTER [facility] ALBUTEROL SO4 90MCG/ACTUAT (CFC-F) INHL,ORAL,6.7GM Active INHALE 2 PUFFS BY ORAL INHALATION FOUR TIMES A DAY NEEDED - RINSE MOUTHPIECE FREQUENTLY TO PREVENT CLOGGING 1 Apr 24, 2020 [id number] October 18, 2019 KJ POTTER [facility] ALBUTEROL SO4 90MCG/ACTUAT (CFC-F) INHL,ORAL,6.7GM Discontin ued INHALE 2 PUFFS BY ORAL INHALATION FOUR TIMES A DAY NEEDED - RINSE MOUTHPIECE FREQUENTLY TO PREVENT CLOGGING 2 Apr 24, 2020 [id number] Apr 24, 2019 KJ POTTER [facility] BUDESONIDE 160MCG/FORMOTEROL FUM 4.5MCG/SPRAY INHL,ORAL,10.2 GM Active INHALE 2 PUFFS BY ORAL INHALATION TWO TIMES A DAY FOR BREATHING. SHAKE WELL. RINSE MOUTH AND SPIT AFTER EACH USE. 2 Apr 24, 2020 [id number] October 17, 2019 MCKENNE Y,KJ [facility] CALCIUM 500MG (CA CARBONATE-1.25GM) TAB Active: Susp TAKE ONE TABLET BY MOUTH TWO TIMES A DAY 180 Nov 20, 2020 [id number] Jan 09, 2020 TARIQBRAYDEN SMITHA [facility] CALCIUM 500MG (CA CARBONATE-1.25GM) TAB Discontinued TAKE ONE TABLET BY MOUTH TWO TIMES A DAY 180 Jan 08, 2020 [id number] October 21, 2019 TARIQKJ [facility] [place] [facility] CALCIUM 500MG (CA CARBONATE-1.25GM) TAB Discontinued TAKE ONE TABLET BY MOUTH TWO TIMES A DAY 180 Dec 29, 2018 [id number] Oct 01, 2018 NASH KULKARNI [facility] CARBIDOPA 25MG/LEVODOPA 100MG TAB Active TAKE 2 TABLETS BY MOUTH FOUR TIMES A DAY FOR PARKINSON'S DISEASE. DO NOT TAKE WITH FOOD. 240 Nov 24, 2020 [id number] Nov 27, 2019 [facility] [place] CARBIDOPA 25MG/LEVODOPA 100MG TAB Discontinued TAKE T WO TABLETS BY MOUTH FIVE TIMES DAILY FOR PARKINSON'S DISEASE. DO NOT TAKE WITH FOOD. 600 Jul 02, 2020 [id number] Nov 19, 2019 [facility] [facility] CARBIDOPA 25MG/LEVODOPA 100MG TAB Discontinued TAKE 2 TABLETS BY MOUTH FIVE TIMES DAILY FOR PARKINSON'S DISEASE. DO NOT TAKE WITH FOOD. 300 Jun 30, 2020 [id number] Jul 01, 2019 [facility] [place] [facility] CARBIDOPA 25MG/LEVODOPA 100MG TAB Discontinued TAKE 2 TABLETS BY MOUTH FOUR TIMES A DAY FOR PARKINSON'S DISEASE. DO NOT TAKE WITH FOOD. 240 Jun 24, 2020 [id number] Jun 26, 2019 [facility] [place] [facility] CARBIDOPA 25MG/LEVODOPA 100MG TAB Discontinued TAKE 2 TABLETS BY MOUTH FOUR TIMES A DAY FOR PARKINSON'S DISEASE. DO NOT TAKE WITH FOOD. 240 Dec 25, 2019 [id number] May 15, 2019 [facility] [place] [facility] CARBIDOPA 25MG/LEVODOPA 100MG TAB Discontinued TAKE 2 TABLETS BY MOUTH FOUR TIMES A DAY FOR PARKINSON'S DISEASE. DO NOT TAKE WITH FOOD. 240 Jun 07, 2019 [id number] Nov 18, 2018 [facility] [place] [facility] CHOLECALCIFEROL 25MCG (1,000UNIT) TAB Active: Susp TA KE TWO TABLETS BY MOUTH ONCE A DAY FOR VITAMIN D DEFICIENCY 200 Nov 20, 2020 [id number] Dec 172019 [facility] CHOLECALCIFEROL 25MCG (1,000UNIT) TAB Discontinued TA KE TWO TABLETS BY MOUTH ONCE A DAY FOR VITAMIN D DEFICIENCY 200 Dec 25, 2019 [id number] October [facility] [place] [facility] CHOLECALCIFEROL 25MCG (1,000UNIT) TAB Discontinued TA KE TWO TABLETS BY MOUTH ONCE A DAY FOR VITAMIN D DEFICIENCY 200 Oct 10, 2018 [id number] Aug 172018 [facility] CLOPIDOGREL BISULFATE 75MG TAB Active: Susp TAKE ONE TABLET BY MOUTH ONCE A DAY TO PREVENT BLOOD CLOTS 90 Apr 24, 2020 [id number] Dec 19, 2019 [facility] CLOPIDOGREL BISULFATE 75MG TAB Discontinued TAKE ONE TABLET BY MOUTH ONCE A DAY TO PREVENT BLOOD CLOTS 90 Jun 01, 2019 [id number] Mar 13, 2019 [facility] [place] [facility] DIPHENHYDRAMINE HCL 25MG CAP Non-VA TAKE 1 CAPSULE BY MOUTH EVERY 6 HOURS NEEDED Non-VA Documented by: KJ POTTER nted at: [facility] FLUDROCORTISONE ACETATE 0.1MG TAB Active TAKE ONE TABLET BY M OUTH ONCE A DAY 90 Nov 19, 2020 [id number] Nov 20, 2019 [facility] [place] FOLIC ACID 1MG TAB Non- VA TAKE ONE TABLET BY MOUTH ONCE A DAY N on-VA Documented by: KJ POTTER nted at: [facility] GABAPENTIN 300MG CAP Active TAKE 1 CAPSULE BY M OUTH 5 TIMES A DAY FOR PAIN AND TREMORS. 300 October 17, 2020 [id number] October 18, [facility] G[facility] 300[facility] CAP Discontinued TAKE ONE CAPSULE BY MOUTH FOUR TIMES A DAY FOR PAIN AND TREMORS. 240 Jan 08, 2020 [id number] Oct 14, 2019 [facility] [place] [facility] GABAPENTIN 300MG CAP Discontinued TAKE ONE CAPSULE BY MOUTH FOUR TIMES A DAY FOR PAIN AND TREMORS. 240 Mar 08, 2019 [id number] Jan 07, 2019 [facility] [place] HYDROCODONE 10MG/ACETAMINOPHEN 325MG TAB Active TAKE ONE TABLET (10/325MG) BY MOUTH THREE TIMES A DAY NEEDED FOR PAIN CAUTION: DO NOT EXCEED 4000MG/DAY TOTAL OF ACETAMINOPHEN (APAP) FROM ALL MEDS 90 Dec 20, 2019 [id number] Nov 21, 2019 [facility] HYDROCODONE 10MG/ACETAMINOPHEN 325MG TAB Discontinued TAKE ONE TABLET (10/325MG) BY MOUTH THREE TIMES A DAY NEEDED FOR PAIN CAUTION: DO NOT EXCEED 4000MG/DAY TOTAL OF ACETAMINOPHEN (APAP) FROM ALL MEDS 90 Sep 17, 2 020 [id number] Sep 04, 2019 [facility] [place] HYDROCODONE 10MG/ACETAMINOPHEN 325MG TAB Discontinued TAKE ONE TABLET BY MOUTH THREE TIMES A DAY NEEDED FOR PAIN CAUTION: DO NOT EXCEED 4000MG/DAY TOTAL OF ACETAMINOPHEN (APAP) FROM ALL MEDS 90 Jul 26, 2019 [id number] Jun 26, 2019 [facility] [place] [facility] HYDROCODONE 10MG/ACETAMINOPHEN 325MG TAB Discontinued TAKE ONE TABLET BY MOUTH THREE TIMES A DAY NEEDED FOR PAIN CAUTION: DO NOT EXCEED 4000MG/DAY TOTAL OF ACETAMINOPHEN (APAP) FROM ALL MEDS 90 Jun 27, 2019 [id number] May 29, 2019 [facility] [place] [facility] HYDROCODONE 10MG/ACETAMINOPHEN 325MG TAB Discontinued TAKE ONE TABLET BY MOUTH THREE TIMES A DAY NEEDED FOR PAIN CAUTION: DO NOT EXCEED 4000MG/DAY TOTAL OF ACETAMINOPHEN (APAP) FROM ALL MEDS 90 May 08, 2019 [id number] Apr 08, 2019 [facility] [place] [facility] HYDROCODONE 10MG/ACETAMINOPHEN 325MG TAB Discontinued TAKE ONE TABLET BY MOUTH THREE TIMES A DAY NEEDED FOR PAIN CAUTION: DO NOT EXCEED 4000MG/DAY TOTAL OF ACETAMINOPHEN (APAP) FROM ALL MEDS 90 Mar 28, 2019 [id number] Feb 26, 2019 [facility] [place] HYDROCODONE 10MG/ACETAMINOPHEN 325MG TAB Discontinued TAKE ONE TABLET BY MOUTH THREE TIMES A DAY NEEDED FOR PAIN CAUTION: DO NOT EXCEED 4000MG/DAY TOTAL OF ACETAMINOPHEN (APAP) FROM ALL MEDS 90 Feb 06, 2019 [id number] Jan 07, 2019 [facility] [place] [facility] HYDROCODONE 10MG/ACETAMINOPHEN 325MG TAB Discontinued TAKE ONE TABLET BY MOUTH THREE TIMES A DAY NEEDED FOR PAIN CAUTION: DO NOT EXCEED 4000MG/DAY TOTAL OF ACETAMINOPHEN (APAP) FROM ALL MEDS 90 Dec 05, 2018 [id number] November 05, 2018 [facility] [place] [facility] HYDROCODONE 10MG/ACETAMINOPHEN 325MG TAB Discontinued TAKE ONE TABLET BY MOUTH THREE TIMES A DAY NEEDED FOR PAIN CAUTION: DO NOT EXCEED 4000MG/DAY TOTAL OF ACETAMINOPHEN (APAP) FROM ALL MEDS 90 October 25, 2018 [id number] Sep 25, 2018 [facility] [place] [facility] HYDROCODONE 10MG/ACETAMINOPHEN 325MG TAB TAKE ONE TABLET (10/325MG) BY MOUTH THREE TIMES A DAY NEEDED FOR PAIN CAUTION: DO NOT EXCEED 4000MG/DAY TOTAL OF ACETAMINOPHEN (APAP) FROM ALL MEDS 90 November 16, 2019 [id number] October 18, 2019 [facility] METHOTREXATE NA 2.5MG TAB Active TAKE SEVEN TABLETS BY MOUTH EVERY WEEK 90 October 17, 2020 [id number] November 04, 2019 [facility] METHOTREXATE NA 2.5MG TAB Discontinued TAKE SEVEN TABLETS BY MOUTH EVERY WEEK 90 May 09, 2020 [id number] Aug 16, 2019 NASH KULKARNI [facility] METHOTREXATE NA 2.5MG TAB Discontinued TAKE SEVEN TABLETS BY MOUTH EVERY WEEK 90 Aug 04, 2019 [id number] Feb 22, 2019 YOU GOMEZ [facility] [place] [facility] NORTRIPTYLINE HCL 10MG CAP Active TAKE 2 CAPSULES BY MO UTH AT BEDTIME NEEDED 120 Apr 02, 2020 [id number] Nov 20, 2019 [facility] [place] [facility] NORTRIPTYLINE HCL 10MG CAP Discontinued TAKE 2 CAPSUL ES BY MOUTH AT BEDTIME NEEDED 120 Mar 20, 2019 [id number] Jan 23, 2019 [facility] OMEPRAZOLE 20MG CAP,EC Active TAKE 1 CAPSULE BY MOUTH EVERY MORNING TO LOWER STOMACH ACID. TAKE 30 MINUTES PRIOR TO FOOD. 90 October 17, 2020 [id number] October 21, 2019 [facility] OMEPRAZOLE 20MG CAP,EC Discontinued TAKE 1 CAPSULE BY MOUTH EVERY MORNING TO LOWER STOMACH ACID. TAKE 30 MINUTES PRIOR TO FOOD. 90 Oct 02, 2019 [id number] Aug 02, 2019 [facility] [place] PREDNISONE 1MG TAB Discontinued TAKE THREE TABLETS B Y MOUTH ONCE A DAY FOR INFLAMMATION AND IMMUNE RESPONSE. TAKE WITH FOOD OR MILK. 270 Fe 2019 [id number] Apr 24, 2019 [facility] PREDNISONE 1MG TAB Discontinued TAKE FOUR TABLETS BY MOUTH ONCE A D AY 360 Apr 22, 2019 [id number] Jan 24, 2019 [facility] [place] [facility] PREDNISONE 1MG TAB Discontinued TAKE FOUR TABLETS BY MOUTH ONCE A D AY 360 Dec 29, 2018 [id number] Oct 01, [address] [facility] PREDNISONE 1MG TAB TAKE THREE TABLETS B Y MOUTH ONCE A DAY FOR INFLAMMATION AND IMMUNE RESPONSE. TAKE WITH FOOD OR MILK. 270 Ap r 2019 [id number] Jul 13, 2019 [facility] [place] [facility] PREDNISONE 5MG TAB Discontinued TAKE ONE TABLET BY MOUTH ONCE A DAY WITH FOOD 60 Aug 01, 2019 [id number] Sep 25, 2018 [facility] [place] [facility] ROPINIROLE HCL 1MG TAB Active TAKE ONE TABLET BY MOUTH AT BED TIME 90 October 17, 2020 [id number] Nov 25, 2019 [facility] ROPINIROLE HCL 1MG TAB Discontinued TAKE ONE TABLET BY MOUTH AT BED TIME 90 Dec 05, 2019 [id number] Sep 03, 2019 KRYSTAL DEJESUS [facility] [place] ROPINIROLE HCL 1MG TAB Discontinued TAKE ONE TABLET BY MOUTH AT BED TIME 90 Dec 13, 2018 [id number] Sep 12, 2018 [facility] [place] [facility] TAMSULOSIN HCL 0.4MG CAP Active: Susp TAKE 1 CAPSULE BY MOUTH ONCE A DAY FOR PROSTATE. TAKE AT THE SAME TIME EACH DAY WITH FOOD. 90 Sep 30 [id number] Dec 20, 2019 [facility] [place] [facility] TAMSULOSIN HCL 0.4MG CAP Discontinued TAKE 1 CAPSULE BY MOUTH ONCE A DAY FOR PROSTATE. TAKE AT THE SAME TIME EACH DAY WITH FOOD. 90 Sep 12 0 [id number] Jun 24, 2019 LIS BRUCE [facility] [place] [facility] Problems (Conditions): All historical and current Section Date Range: From patient's date of to the date document was create d. This section includes a list of Problems (Conditions) know n to VA for the patient. It includes both active and inacti ve problems (conditions). The data comes from all PA treatment facilities. Problem Status Problem Code Date of Onset Date of Resolution Comm ent(s) Provider Source Abnormal radiologic density Active [id number] KJ HWANG [facility] [place] Allergic rhinitis Active 53248183 LADY SALAZAR [facility] [place] [facility] Anemia Active 610386932 KJ POTTER [facility] [place] [facility] Chest pain (SNOMED [place] 68860819) Active 786.50 KJ POTTER [facility] [place] [facility] Chondrocalcinosis Active [id number] YOU GOMEZ [facility] [place] [facility] Chronic obstructive lung disease Active 00868331 KJ POTTER [facility] [place] [facility] Coronary artery disease Active 61193068 Angella LINDSEY [facility] [place] [facility] Cough Active 27932551 LADY SALAZAR S [facility] [place] Cough (SNOMED CT 81209555) Active 786.2 KJ BARRON [facility] [place] [facility] Dysarthria (SNOMED CT 0188681) Active 784.51 M KJ WONG [facility] [place] [facility] Dyspnea (SNOMED CT 187415252) Active 786.09 KJ BARKSDALE [facility] [place] [facility] Eruption due to drug Active 53437556 Abdiaziz POTTER [facility] [place] [facility] Gastroesophageal reflux disease Active 861277957 KJ POTTER [facility] [place] [facility] Hallux valgus AND bunion Active 245721327 DEISY GERMAIN Royce [facility] [place] [facility] Joint pain (SNOMED CT 94929767) Active 719.40 DEISY CONTRERAS Royce [facility] [place] [facility] Joint swelling (SNOMED CT 594947178) Active 719.00 TARIQ,DANA [facility] [place] [facility] Knee pain Active 33182730 JENNIFER LINDSEY [facility] [place] [facility] Muscle weakness (SNOMED CT 69333771) Active 728.87 KJ POTTER [facility] [place] [facility] Neuropathy Active 405576126 KJ POTTER RN [facility] [place] Osteoarthritis Active 715.36 DYAN SERVIN [facility] [place] [facility] Parkinson's disease Active 45407655 ETHAN POTTER NA [facility] [place] [facility] Peripheral Neuropathy Active 356.9 DASARAZORAIDA,P URUSHOTHAMA V [facility] [place] [facility] Personal History of Exposure to Agent Collin Active V15.89 DEISY CONTRERAS [facility] [place] [facility] Polyp of colon (SNOMED CT 16725766) Active 211.3 TARIQJK [facility] [place] [facility] Restless legs Active 71928674 PATRICK WHITE [facility] [place] [facility] Rheumatoid arthritis Active 32629801 Abdiaziz POTTER [facility] [place] [facility] Screening, Malignancy Active V76.89 LISSETH TOLEDO [facility] [place] [facility] Sleep apnea Active 97779018 KJ POTTER RN [facility] [place] [facility] Synovial cyst of popliteal space (SNOMED CT 91529325) Active 727.51 BRAYDEN POTTERA [facility] [place] [facility] Tobacco dependence in remission Active 704914507 [facility] [place] [facility] Tobacco use Active 521570316 JENNIFER LINDSEY [facility] [place] [facility] Tremor Active 19740102 JENNIFER LINDSEY K S [facility] [place] Unresolved Active 13915048 JENNIFER LINDSEY N [facility] [place] [facility] Unresolved Active 35375743 JENNIFER LINDSEY [facility] [place] [facility] Radiology Reports: +/- 30 days of the encounter No Data Provided for This Section Pathology Reports: +/- 30 days of the encounter No Data Provided for This Section Encounter Notes: All associated encounter notes This section contains the clinical notes associated to the Encounter. Date/Time Encounter Note(s) Provider Source Aug 08, 2019 12:52 PM NONVA NOTE: LOCAL TITLE: COMMUNITY CARE-REQUEST FOR SERVICES NOTE EK STANDARD TITLE: NONVA NOTE DATE OF NOTE: AUG 08, 2019@12:52 ENTRY DATE: AUG 08, 2019@12:52:31 AUTHOR: TRAVIS HARTMAN EXP COSIGNER: URGENCY: STATUS: COMPLETED [facility] CARE-REQUEST FOR SERVICES NOTE EK Has ADDENDA A Request for Service (RFS) form has been received which includes the following: Name of ordering provider:[facility]- DR ALLEGRA HOWE Telephone number of ordering provider:[phone] ICD-Dx code listed on RFS:G20 Specific type(s) of service(s) ordered on RFS EVALUATION AND TREAT- CONTINUATION OF CARE Signed RFS order/Supporting Medical Documentation attached to RFS Note for viewing. Request will require a new consult if appropriate. Ty /sofya/ TRAVIS HARTMAN RN, BSN Signed: 08/08/2019 12:56 08/08/2019 ADDENDUM STATUS: COMPLETED [facility] for Parkinson's SCHEDULED 02/20/19 13:23 KJ POTTER TINA M [facility] Consult Appt. on MAY 29, 2019@09:00 PID 02/13/19 ALLEGRA HOWE [address] [address] P: [phone] F: [phone] AUTH#[id number] AUTH DATE 02/03/19~08/02/19 ----- No [facility] available. Submitting to TO Neuro to request re-authorization david Howe /sofya/ KJ POTTER [facility] Signed: 08/08/2019 13:27 TRAVIS HARTMAN [facility]
--- OUTSIDE RECORDS SUMMARY | 2019-12-04 21:56 | XMS REPORT | Encounter Summary ---
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 Date/Time Encounter Type Encounter Description Reason Provider Source Nov 19, 2019 11:41 AM Outpatient Encounter ADMIN PAT ACTIVTIES (MASNO NCT) [facility] [place] IHE Encounter Template Text not used by VA Assessments - Encounter Diagnoses No Data Provided for This Section Plan of Treatment: Future Appointments (+ 6 months) and Future Tests (+/- 45 day s) The Plan of Treatment section includes future care activities for the patient fr om all [place] treatment facilities. This section includes future appointments and fu ture orders which are active, pending or scheduled. Future Appointments This section includes appointments that were scheduled t o occur 6 months from the date of the Encounter, up to a maximum of 20 appointme nts. The data comes from all [facility]. Appointment Date/Time Appointment Type Appointment Facili ty Name Nov 20, 2019 05:00 PM AMBULATORY - MEDICINE [facility] Nov 24, 2019 11:20 AM AMBULATORY - NONE [facility] [place] Dec 02, 2019 10:30 AM AMBULATORY - NONE [facility] [place] Dec 03, 2019 12:30 PM AMBULATORY - NONE [facility] Dec 04, 2019 10:45 AM AMBULATORY - MEDICINE [facility] Dec 10, 2019 01:30 PM AMBULATORY - MEDICINE [facility] Jan 06, 2020 10:30 AM AMBULATORY - MEDICINE [facility] Active, Pending, and Scheduled Orders This section [...] the Encounter. The data comes from all [facility]. Test Date/Time Test Type Test Details Facility Name Dec 04, 2019 11:10 AM Laboratory - Chemistry Order ERYTHROCY TE SEDIMENTATION RATE 5 ML LAVENDER TOP BLOOD SP [place] [facility] Dec 04, 2019 11:10 AM Laboratory - Chemistry Order IRON-TOTAL SS T GEL SERUM SP [facility] Dec 04, 2019 11:10 AM Laboratory - Chemistry Order IRON/TIBC SST GEL SERUM SP [facility] Surgical Procedures: All associated to the encounter No Data Provided for This Section Lab Results: +/- 30 days of the encounter This section includes the Chemistry and Hematology Lab R esults on record with [place] for the patient. Radiology Reports and Pathology Report s are provided separately, in subsequent sections. Lab Results This section contains the Chemistry/Hematology Results juan t were resulted 30 days before or 30 days after the date of the Encounter. Date/Time Source Result Type Result - Unit Interpretation Reference Range Comment Dec 04, 2019 11:10 AM [facility] FERRITIN Specimen Type: SERUM No comment entered. FERRITIN 6 ng/mL L 22-275 Dec 04, 2019 11:10 AM [facility] LIPID PROFILE(HDL,TRIG ,CHOL,LDL) Specimen Type: PLASMA No comment entered. CHOLESTEROL 75 mg/dL 0-200 TRIGS 38 mg/dL 0-150 HDL-CHOLESTEROL 34 mg/dL L >40 LDL (CALC) 33 mg/dL 0-99.9 Dec 04, 2019 11:10 AM [facility] TSH Specimen Type: SERUM No comment entered. TSH 1.51 uIU/mL 0.47-5.00 Dec 04, 2019 11:10 AM [facility] PROSTATIC SPECIFIC ANT IGEN(TOTAL) Specimen Type: SERUM No comment entered. PROSTATIC SPECIFIC ANTIGEN(TOTAL) 1.68 ng/mL 0-4 Dec 04, 2019 11:10 AM [facility] VITAMIN D (25-OH) Specimen Type: SERUM No comment entered. VITAMIN D (25-OH) 36.4 ng/mL 30.0-96.0 Dec 04, 2019 11:10 AM [facility] FOLATE Specimen Type: SERUM No comment entered. FOLATE >40.0 ng/mL H 7.0-20.0 Dec 04, 2019 11:10 AM [facility] VITAMIN B12 Specimen Type: SERUM No comment entered. VITAMIN B12 491 pg/mL 213-816 Dec 04, 2019 11:10 AM [facility] C-REACTIVE PROTEIN Specimen Type: SERUM No comment entered. C-REACTIVE PROTEIN 9.77 mg/dL H 0.0-0.5 Dec 04, 2019 11:10 AM [facility] COMPREHENSIVE METABOLI C PANEL Specimen Type: PLASMA [...] Dec 04, 2019 11:10 AM BLUE MOREJON [facility] CBC & DIFF Specimen Type: BLOOD Comment: [...] Adverse Reactions (ADR s) on record with [place] for the patient. The data comes from a ll [place] treatment facilities. It does not list Allergies/ADRs that were removed or entered in error. Some allergies/ADRs may be reported in t he Immunization section. Allergen Event Date Event Type Reaction(s) Severity Source PANTOPRAZOLE Oct 01, 2018 Propensity to adverse reactions to drug (disorder) Eruption [facility] PENICILL[place] Jul 17, 2012 Propensity to adverse reactions to drug (disorder) Peripheral edema [facility] 15 Medications: VA dispensed (-15 months) and Non-VA Documented (Obtained Outside V A) Section Date Range: 1) prescriptions processed by a VA pharmacy in the last 15 m ont, and 2) all medications recorded in the [place] medical record as "non-VA medic ations". Pharmacy terms refer to [place] pharmacy's work on prescriptions. VA patient s are advised to take their medications as instructed by their health care team. The data comes from all [place] treatment facilities. Glossary of Pharmacy Terms:Active = A prescription that can be filled at the local [place] pharmacy.Active: On Hold = An active prescription that will not be filled until pharmacy resolves the issue.Active: Susp = An active prescription that is not scheduled to be filled yet.Clinic Order = A medication received during a visit to a [place] clinic or emergency department (currently not available).Discontinued [...] other providers that was filled outside the [place]. Or, it may be an over the [...] FOR INHALATION ONCE 1 Nov 16, 2018 [id number] October 17, 2018 KOURTNEY DANIELSON [facility] ALBUTEROL SO4 90MCG/ACTUAT (CFC-F) INHL,ORAL,6.7GM Active INHALE 2 PUFFS BY ORAL INHALATION FOUR TIMES A DAY NEEDED - RINSE MOUTHPIECE FREQUENTLY TO PREVENT CLOGGING 1 Apr 24, 2020 [id number] October 18, 2019 KOURTNEY DANIELSON [facility] ALBUTEROL SO4 90MCG/ACTUAT (CFC-F) INHL,ORAL,6.7GM Discontin ued INHALE 2 PUFFS BY ORAL INHALATION FOUR TIMES A DAY NEEDED - RINSE MOUTHPIECE FREQUENTLY TO PREVENT CLOGGING 2 Apr 24, 2020 [id number] Apr 24, 2019 KOURTNEY DANIELSON [facility] BUDESONIDE 160MCG/FORMOTEROL FUM 4.5MCG/SPRAY INHL,ORAL,10.2 GM Active INHALE 2 PUFFS BY ORAL INHALATION TWO TIMES A DAY FOR BREATHING. SHAKE WELL. RINSE MOUTH AND SPIT AFTER EACH USE. 2 Apr 24, 2020 [id number] October 17, 2019 KOURTNEY JOSHI [facility] CALCIUM 500MG (CA CARBONATE-1.25GM) TAB Active: Susp TAKE ONE TABLET BY MOUTH TWO TIMES A DAY 180 Nov 20, 2020 [id number] Jan 09, 2020 KOURTNEY DANIELSON [facility] CALCIUM 500MG (CA CARBONATE-1.25GM) TAB Discontinued TAKE ONE TABLET BY MOUTH TWO TIMES A DAY 180 Jan 08, 2020 [id number] October 21, 2019 KOURTNEY DANIELSON [facility] [place] CALCIUM 500MG (CA CARBONATE-1.25GM) TAB Discontinued TAKE ONE TABLET BY MOUTH TWO TIMES A DAY 180 Dec 29, 2018 [id number] Oct 01, 2018 NASH KULKARNI [facility] CARBIDOPA 25MG/LEVODOPA 100MG TAB Active TAKE 2 TABLETS BY MOUTH FOUR TIMES A DAY FOR PARKINSON'S DISEASE. DO NOT TAKE WITH FOOD. 240 Nov 24, 2020 [id number] Nov 27, 2019 ALLEGRA HOWE [facility] [place] CARBIDOPA 25MG/LEVODOPA 100MG TAB Discontinued TAKE T WO TABLETS BY MOUTH FIVE TIMES DAILY FOR PARKINSON'S DISEASE. DO NOT TAKE WITH FOOD. 600 Jul 02, 2020 [id number] Nov 19, 2019 TARIQ[facility] [place] [facility] CARBIDOPA 25MG/LEVODOPA 100MG TAB Discontinued TAKE 2 TABLETS BY MOUTH FIVE TIMES DAILY FOR PARKINSON'S DISEASE. DO NOT TAKE WITH FOOD. 300 Jun 30, 2020 [id number] Jul 01, 2019 [facility] [place] [facility] CARBIDOPA 25MG/LEVODOPA 100MG TAB Discontinued TAKE 2 TABLETS BY MOUTH FOUR TIMES A DAY FOR PARKINSON'S DISEASE. DO NOT TAKE WITH FOOD. 240 Jun 24, 2020 [id number] Jun 26, 2019 [facility] CARBIDOPA 25MG/LEVODOPA 100MG TAB Discontinued TAKE 2 TABLETS BY MOUTH FOUR TIMES A DAY FOR PARKINSON'S DISEASE. DO NOT TAKE WITH FOOD. 240 Dec 25, 2019 [id number] May 15, 2019 [facility] DIV CARBIDOPA 25MG/LEVODOPA 100MG TAB Discontinued TAKE 2 TABLETS BY MOUTH FOUR TIMES A DAY FOR PARKINSON'S DISEASE. DO NOT TAKE WITH FOOD. 240 Jun 07, 2019 [id number] Nov 18, 2018 [facility] CHOLECALCIFEROL 25MCG (1,000UNIT) TAB Active: Susp TA KE TWO TABLETS BY MOUTH ONCE A DAY FOR VITAMIN D DEFICIENCY 200 Nov 20, 2020 [id number] Dec 172019 [facility] CHOLECALCIFEROL 25MCG (1,000UNIT) TAB Discontinued TA KE TWO TABLETS BY MOUTH ONCE A DAY FOR VITAMIN D DEFICIENCY 200 Dec 25, 2019 [id number] [facility] CHOLECALCIF[facility]OL 25MCG (1,000UNIT) TAB Discontinued TA KE TWO TABLETS BY MOUTH ONCE A DAY FOR VITAMIN D DEFICIENCY 200 Oct 10, 2018 [id number] Aug 172018 [facility] CLOPIDOGREL BISULFATE 75MG TAB Active: Susp TAKE ONE TABLET BY MOUTH ONCE A DAY TO PREVENT BLOOD CLOTS 90 Apr 24, 2020 [id number] Dec 19, 2019 [facility] CLOPIDOGREL BISULFATE 75MG TAB Discontinued TAKE ONE TABLET BY MOUTH ONCE A DAY TO PREVENT BLOOD CLOTS 90 Jun 01, 2019 [id number] Mar 13, 2019 [facility] DIPHENHY[facility]AM[facility] 25MG CAP Non-VA TAKE 1 CAPSULE BY MOUTH EVERY 6 HOURS NEEDED Non-VA Documented by: KOURTNEY DANIELSON nted at: [facility] FLUDROCORTISONE ACETATE 0.1MG TAB Active TAKE ONE TABLET BY M OUTH ONCE A DAY 90 Nov 19, 2020 [id number] Nov 20, 2019 [facility] [place] FOLIC ACID 1MG TAB Non- VA TAKE ONE TABLET BY MOUTH ONCE A DAY N on-VA Documented by: KOURTNEY DANIELSON nted at: [facility] GABAPENTIN 300MG CAP Active TAKE 1 CAPSULE BY M OUTH 5 TIMES A DAY FOR PAIN AND TREMORS. 300 October 17, 2020 [id number] October 18, 2019 TARIQKOURTNEY [facility] GABAPENTIN 300MG CAP Discontinued TAKE ONE CAPSULE BY MOUTH FOUR TIMES A DAY FOR PAIN AND TREMORS. 240 Jan 08, 2020 [id number] Oct 14, 2019 [facility] [place] GABAPENTIN 300MG CAP Discontinued TAKE ONE CAPSULE BY MOUTH FOUR TIMES A DAY FOR PAIN AND TREMORS. 240 Mar 08, 2019 [id number] Jan 07, 2019 [facility] [place] HYDROCODONE 10MG/ACETAMINOPHEN 325MG TAB Active TAKE ONE TABLET (10/325MG) BY MOUTH THREE TIMES A DAY NEEDED FOR PAIN CAUTION: DO NOT EXCEED 4000MG/DAY TOTAL OF ACETAMINOPHEN (APAP) FROM ALL MEDS 90 Dec 20, 2019 [id number] Nov 21, 2019 [facility] HYDROCODONE 10MG/ACETAMINOPHEN 325MG TAB Discontinued TAKE ONE TABLET (10/325MG) BY MOUTH THREE TIMES A DAY NEEDED FOR PAIN CAUTION: DO NOT EXCEED 4000MG/DAY TOTAL OF ACETAMINOPHEN (APAP) FROM ALL MEDS 90 Sep 17, 2 020 [id number] Sep 04, 2019 [facility] [place] HYDROCODONE 10MG/ACETAMINOPHEN 325MG TAB Discontinued TAKE ONE TABLET BY MOUTH THREE TIMES A DAY NEEDED FOR PAIN CAUTION: DO NOT EXCEED 4000MG/DAY TOTAL OF ACETAMINOPHEN (APAP) FROM ALL MEDS 90 Jul 26, 2019 [id number] Jun 26, 2019 [facility] [place] HYDROCODONE 10MG/ACETAMINOPHEN 325MG TAB Discontinued TAKE ONE TABLET BY MOUTH THREE TIMES A DAY NEEDED FOR PAIN CAUTION: DO NOT EXCEED 4000MG/DAY TOTAL OF ACETAMINOPHEN (APAP) FROM ALL MEDS 90 Jun 27, 2019 [id number] May 29, 2019 KOURTNEY DANIELSON [facility] [place] HYDROCODONE 10MG/ACETAMINOPHEN 325MG TAB Discontinued TAKE ONE TABLET BY MOUTH THREE TIMES A DAY NEEDED FOR PAIN CAUTION: DO NOT EXCEED 4000MG/DAY TOTAL OF ACETAMINOPHEN (APAP) FROM ALL MEDS 90 May 08, 2019 [id number] Apr 08, 2019 [facility] [place] HYDROCODONE 10MG/ACETAMINOPHEN 325MG TAB Discontinued TAKE ONE TABLET BY MOUTH THREE TIMES A DAY NEEDED FOR PAIN CAUTION: DO NOT EXCEED 4000MG/DAY TOTAL OF ACETAMINOPHEN (APAP) FROM ALL MEDS 90 Mar 28, 2019 [id number] Feb 26, 2019 [facility] [place] HYDROCODONE 10MG/ACETAMINOPHEN 325MG TAB Discontinued TAKE ONE TABLET BY MOUTH THREE TIMES A DAY NEEDED FOR PAIN CAUTION: DO NOT EXCEED 4000MG/DAY TOTAL OF ACETAMINOPHEN (APAP) FROM ALL MEDS 90 Feb 06, 2019 [id number] Jan 07, 2019 TARIQBRAYDEN SM[facility]ER[facility] [place] HYDROCODONE 10MG/ACETAMINOPHEN 325MG TAB Discontinued TAKE ONE TABLET BY MOUTH THREE TIMES A DAY NEEDED FOR PAIN CAUTION: DO NOT EXCEED 4000MG/DAY TOTAL OF ACETAMINOPHEN (APAP) FROM ALL MEDS 90 Dec 05, 2018 [id number] November 05, 2018 [facility] [place] HYDROCODONE 10MG/ACETAMINOPHEN 325MG TAB Discontinued TAKE ONE TABLET BY MOUTH THREE TIMES A DAY NEEDED FOR PAIN CAUTION: DO NOT EXCEED 4000MG/DAY TOTAL OF ACETAMINOPHEN (APAP) FROM ALL MEDS 90 October 25, 2018 [id number] Sep 25, 2018 TARIQBRAYDEN SMITHFORMERLY [facility] [place] HYDROCODONE 10MG/ACETAMINOPHEN 325MG TAB TAKE ONE TABLET (10/325MG) BY MOUTH THREE TIMES A DAY NEEDED FOR PAIN CAUTION: DO NOT EXCEED 4000MG/DAY TOTAL OF ACETAMINOPHEN (APAP) FROM ALL MEDS 90 November 16, 2019 [id number] October 18, 2019 KOURTNEY DANIELSON [facility] METHOTREXATE NA 2.5MG TAB Active TAKE SEVEN TABLETS BY MOUTH EVERY WEEK October 17, 2020 [id number] November 04, 2019 [facility] METHOTREXATE NA 2.5MG TAB Discontinued TAKE SEVEN TABLETS BY MOUTH EVERY WEEK 90 May 09, 2020 [id number] Aug 16, 2019 NASH KULKARNI [facility] METHOTREXATE NA 2.5MG TAB Discontinued TAKE SEVEN TABLETS BY MOUTH EVERY WEEK 90 Aug 04, 2019 [id number] Feb 22, 2019 JASONYOU [facility] [place] NORTRIPTYLINE HCL 10MG CAP Active TAKE 2 CAPSULES BY MO UTH AT BEDTIME NEEDED 120 Apr 02, 2020 [id number] Nov 20, 2019 [facility] [place] NORTRIPTYLINE HCL 10MG CAP Discontinued TAKE 2 CAPSUL ES BY MOUTH AT BEDTIME NEEDED 120 Mar 20, 2019 [id number] Jan 23, 2019 [facility] OMEPRAZOLE 20MG CAP,EC Active TAKE 1 CAPSULE BY MOUTH EVERY MORNING TO LOWER STOMACH ACID. TAKE 30 MINUTES PRIOR TO FOOD. 90 October 17, 2020 [id number] October 21, 2019 [facility] OMEPRAZOLE 20MG CAP,EC Discontinued TAKE 1 CAPSULE BY MOUTH EVERY MORNING TO LOWER STOMACH ACID. TAKE 30 MINUTES PRIOR TO FOOD. 90 Oct 02, 2019 [id number] Aug 02, 2019 [facility] [place] PREDNISONE 1MG TAB Discontinued TAKE THREE TABLETS B Y MOUTH ONCE A DAY FOR INFLAMMATION AND IMMUNE RESPONSE. TAKE WITH FOOD OR MILK. 270 Fe 2019 [id number] Apr 24, 2019 [facility] PREDNISONE 1MG TAB Discontinued TAKE FOUR TABLETS BY MOUTH ONCE A D AY 360 Apr 22, 2019 [id number] Jan 24, 2019 BLUE DAVIES [facility] [place] PREDNISONE 1MG TAB Discontinued TAKE FOUR TABLETS BY MOUTH ONCE A D AY 360 Dec 29, 2018 [id number] Oct 01, 2018 NASH KULKARNI V [facility] PREDNISONE 1MG TAB TAKE THREE TABLETS B Y MOUTH ONCE A DAY FOR INFLAMMATION AND IMMUNE RESPONSE. TAKE WITH FOOD OR MILK. 270 Ap r 2019 [id number] Jul 13, 2019 [facility] [place] [facility] PREDNISONE 5MG TAB Discontinued TAKE ONE TABLET BY MOUTH ONCE A DAY WITH FOOD 60 Aug 01, 2019 [id number] Sep 25, 2018 KOURTNEY DANIELSON [facility] [place] ROPINIROLE HCL 1MG TAB Active TAKE ONE TABLET BY MOUTH AT BED TIME 90 October 17, 2020 [id number] Nov 25, 2019 KOURTNEY DANIELSON [facility] ROPINIROLE HCL 1MG TAB Discontinued TAKE ONE TABLET BY MOUTH AT BED TIME 90 Dec 05, 2019 [id number] Sep 03, 2019 DEJESUS,ROSCBALDO Abdiaziz [facility] [place] ROPINIROLE HCL 1MG TAB Discontinued TAKE ONE TABLET BY MOUTH AT BED TIME 90 Dec 13, 2018 [id number] Sep 12, 2018 TARIQBRAYDEN [facility] [place] TAMSULOSIN HCL 0.4MG CAP Active: Susp TAKE 1 CAPSULE BY MOUTH ONCE A DAY FOR PROSTATE. TAKE AT THE SAME TIME EACH DAY WITH FOOD. 90 Sep 30 1 [id number] Dec 20, 2019 TARIQKOURTNEY SMITH [facility] [place] TAMSULOSIN HCL 0.4MG CAP Discontinued TAKE 1 CAPSULE BY MOUTH ONCE A DAY FOR PROSTATE. TAKE AT THE SAME TIME EACH DAY WITH FOOD. 90 Sep 12 0 [id number] Jun 24, 2019 TEOLIS [facility] [place] Problems (Conditions): All historical and current Section Date Range: From patient's date of to the date document was create d. This section includes a list of Problems (Conditions) know n to [facility] for the patient. It includes both active and inacti ve problems (conditions). The data comes from all [place] treatment facilities. Problem Status Problem Code Date of Onset Date of Resolution Comm ent(s) Provider Source Abnormal radiologic density Active 14939142 KOURTNEY WALKER [facility] [place] Allergic rhinitis Active 60027659 LADY SALAZAR [facility] [place] [facility] Anemia Active 393900018 [facility] [place] [facility] Chest pain (SNOMED CT 21183794) Active 786.50 TARIQ,[facility]FORMERLY [facility] [place] [facility] Chondrocalcinosis Active [id number] YOU GOMEZ [facility] [place] [facility] Chronic obstructive lung disease Active 81104640 [facility] [place] [facility] Coronary artery disease Active 07718385 Angella LINDSEY [facility] [place] [facility] Cough Active 50041677 LADY SALAZAR [facility] [place] Cough (SNOMED CT 12423385) Active 786.2 KOURTNEY BARRON [facility] [place] [facility] Dysarthria (SNOMED CT 6475647) Active 784.51 M KOURTNEY WONG [facility] [place] [facility] Dyspnea (SNOMED CT 167338032) Active 786.09 KOURTNEY BARKSDALE [facility] [place] [facility] Eruption due to drug Active 62622227 Abdiaziz DANIELSON TORY [facility] [place] [facility] Gastroesophageal reflux disease Active [id number] KOURTNEY DANIELSON [facility] [place] [facility] Hallux valgus AND bunion Active 402630085 ALEXANDRO DEISY Dangelo [facility] [place] [facility] Joint pain (SNOMED CT 45710673) Active 719.40 DEISY CONTRERAS [facility] [place] [facility] Joint swelling (SNOMED CT 731500874) Active 719.00 KOURTNEY DANIELSON [facility] [place] [facility] Knee pain Active 69136905 JENNIFER LINDSEY [facility] [place] [facility] Muscle weakness (SNOMED CT 56314410) Active 728.87 KOURTNEY DANIELSON [facility] [place] [facility] Neuropathy Active 896293241 KOURTNEY DANIELSON RN [facility] [place] Osteoarthritis Active 715.36 DYAN SERVIN [facility] [place] [facility] Parkinson's disease Active 43924238 ETHAN DANIELSON [facility] [place] [facility] Peripheral Neuropathy Active 356.9 DASARAJU,P URUSHOTHAMA V [facility] [place] [facility] Personal History of Exposure to Agent Foster Active V15.89 DIANEDEISY [facility] [place] [facility] Polyp of colon (SNOMED CT 03187932) Active 211.3 TARIQKOURTNEY [facility] [place] [facility] Restless legs Active 24584039 PATRICK WHITE [facility] [place] Rheumatoid arthritis Active 81719460 Abdiaziz DANIELSON TORY [facility] [place] [facility] Screening, Malignancy Active V76.89 LISSETH TOLEDO [facility] [place] [facility] Sleep apnea Active 62213331 KOURTNEY DANIELSON RN [facility] [place] Synovial cyst of popliteal space (SNOMED CT 09038511) Active 727.51 KOURTNEY DANIELSON [facility] [place] [facility] Tobacco dependence in remission Active 292509539 KOURTNEY DANIELSON [facility] [place] [facility] Tobacco use Active 195748099 ROSALIALUIS ALFREDOJENNIFER J DAKSHA LEON [facility] [place] [facility] Tremor Active 65165773 ROSALIAJENNIFER HENDRIX K S [facility] [place] Unresolved Active 06934194 JENNIFER LINDSEYNERY N [facility] [place] [facility] Unresolved Active 24843103 ROSALIALUIS ALFREDOJENNIFERORESTES CHEUNG N [facility] [place] [facility] Radiology Reports: +/- 30 days of the encounter No Data Provided for This Section Pathology Reports: +/- 30 days of the encounter No Data Provided for This Section Encounter Notes: All associated encounter notes This section contains the clinical notes associated to the Encounter. Date/Time Encounter Note(s) Provider Source Nov 19, 2019 11:41 AM PHARMACY NOTE: LOCAL TITLE: EK-PHARMACY REFILL STANDARD TITLE: PHARMACY NOTE DATE OF NOTE: NOV 19, 2019@11:41 ENTRY DATE: NOV 19, 2019@11:41:52 AUTHOR: JENNIFER LINDSEY EXP COSIGNER: URGENCY: STATUS: COMPLETED RX received from Dr Jessee MD [facility] fludrocortisone 0.1 mg oral tab Si tab oral daily for 90 days Qty: 90 Refill: 3 hard copy to provider /sofya/ JENNIFER LINDSEY LPN Signed: 11/19/2019 11:43 Receipt Acknowledged By: 11/19/2019 11:55 /sofya/ JENNIFER MARSH [facility] [place] [facility]
--- OUTSIDE RECORDS SUMMARY | 2019-12-04 21:56 | XMS REPORT ---
Author Author Department of [facility] CARLOS sweeney Organization Department of [facility] Address [address] [place] [address] Phone Unavailable Care Team Providers Care Clerk Operator Name Role Phone TARIQKOURTNEY PCP Unavailable [...] PLAN G MEDICARE SUPPLEMENT Dec PLAN G [id number] [phone] CARLOS REYNOLDS PATIENT MEDICARE (WNR) MEDICARE (M) PART A Dec 16, 2014 PART A [id number] CARLOS REYNOLDS PATIENT MEDICARE (WNR) MEDICARE (M) PART B Dec 16, 2014 PART B [id number] CARLOS REYNOLDS PATIENT MEDICO DENTAL INSURANCE DENTAL VISIONHEARING Dec 16, 2014 DENTAL VISIONHEAR [id number] [phone] CARLOS REYNOLDS PATIENT Selected Encounter This section includes the information on record at VA for the Encounter. Date/Time Encounter Type Encounter Description Reason Provider Source November 05, 2019 09:57 AM Outpatient Encounter ADMIN PAT ACTIVTIES (MASNO NCT) [facility] [place] IHE Encounter Template Text not used by VA Assessments - Encounter Diagnoses No Data Provided for This Section Plan of Treatment: Future Appointments (+ 6 months) and Future Tests (+/- 45 day s) The Plan of Treatment section includes future care activities for the patient fr om all [place] treatment facilities. This section includes future appointments and fu ture orders which are active, pending or scheduled. Future Appointments This section includes appointments that were scheduled t o occur 6 months from the date of the Encounter, up to a maximum of 20 appointme nts. The data comes from all [facility]. Appointment Date/Time Appointment Type Appointment Facili ty Name Nov 20, 2019 05:00 PM AMBULATORY - MEDICINE [facility] Nov 24, 2019 11:20 AM AMBULATORY - NONE [facility] [place] Dec 02, 2019 10:30 AM AMBULATORY - NONE [facility] [place] Dec 03, 2019 12:30 PM AMBULATORY - NONE [facility] Dec 04, 2019 10:45 AM [facility] Dec 10, 2019 01:30 PM AMBULATORY - MEDICINE [facility] Jan 06, 2020 10:30 AM [facility] Active, Pending, and Scheduled Orders This [...] the Encounter. The data comes from all [facility]. Test Date/Time Test Type Test Details Facility Name Dec 04, 2019 11:10 AM Laboratory - Chemistry Order ERYTHROCY TE SEDIMENTATION RATE 5 ML LAVENDER TOP BLOOD SP [place] ToshiaJose [facility] Dec 04, 2019 11:10 AM Laboratory - Chemistry Order IRON-TOTAL SS T GEL SERUM SP [facility] Dec 04, 2019 11:10 AM Laboratory - Chemistry Order IRON/TIBC SST GEL SERUM SP [facility] Surgical Procedures: All associated to the encounter No Data Provided for This Section Lab Results: +/- 30 days of the encounter This section includes the Chemistry and Hematology Lab R esults on record with [facility] for the patient. Radiology Reports and Pathology Report s are provided separately, in subsequent sections. Lab Results This section contains the Chemistry/Hematology Results juan t were resulted 30 days before or 30 days after the date of the Encounter. Date/Time Source Result Type Result - Unit Interpretation Reference Range Comment Dec 04, 2019 11:10 AM [facility] FERRITIN Specimen Type: SERUM No comment entered. FERRITIN 6 ng/mL L 22-275 Dec 04, 2019 11:10 AM [facility] LIPID PROFILE(HDL,TRIG ,CHOL,LDL) Specimen Type: PLASMA No comment entered. CHOLESTEROL 75 mg/dL 0-200 TRIGS 38 mg/dL 0-150 HDL-CHOLESTEROL 34 mg/dL L >40 LDL (CALC) 33 mg/dL 0-99.9 Dec 04, 2019 11:10 AM [facility] TSH Specimen Type: SERUM No comment entered. TSH 1.51 uIU/mL 0.47-5.00 Dec 04, 2019 11:10 AM [facility] PROSTATIC SPECIFIC ANT IGEN(TOTAL) Specimen Type: SERUM No comment entered. PROSTATIC SPECIFIC ANTIGEN(TOTAL) 1.68 ng/mL 0-4 Dec 04, 2019 11:10 AM [facility] VITAMIN D (25-OH) Specimen Type: SERUM No comment entered. VITAMIN D (25-OH) 36.4 ng/mL 30.0-96.0 Dec 04, 2019 11:10 AM [facility] FOLATE Specimen Type: SERUM No comment entered. FOLATE >40.0 ng/mL H 7.0-20.0 Dec 04, 2019 11:10 AM [facility] VITAMIN B12 Specimen Type: SERUM No comment entered. VITAMIN B12 491 pg/mL 213-816 Dec 04, 2019 11:10 AM [facility] C-REACTIVE PROTEIN Specimen Type: SERUM No comment entered. C-REACTIVE PROTEIN 9.77 mg/dL H 0.0-0.5 Dec 04, 2019 11:10 AM [facility] COMPREHENSIVE METABOLI C PANEL Specimen Type: [...] Dec 04, 2019 11:10 AM [facility] CBC & DIFF Specimen Type: BLOOD Comment: [...] Adverse Reactions (ADR s) on record with [place] for the patient. The data comes from a ll [place] treatment facilities. It does not list Allergies/ADRs that were removed or entered in error. Some allergies/ADRs may be reported in t he Immunization section. Allergen Event Date Event Type Reaction(s) Severity Source PANTOPRAZOLE Oct 01, 2018 Propensity to adverse reactions to drug (disorder) Eruption [facility] PENICILLIN Jul 17, 2012 Propensity to adverse reactions to drug (disorder) Peripheral edema [facility] Medications: VA dispensed (-15 months) and Non-VA Documented (Obtained Outside V A) Section Date Range: 1) prescriptions processed by a VA pharmacy in the last 15 m ont, and 2) all medications recorded in the [place] medical record as "non-VA medic ations". Pharmacy terms refer to HI pharmacy's work on prescriptions. VA patient s are advised to take their medications as instructed by their health care team. The data comes from all [place] treatment facilities. Glossary of Pharmacy Terms:Active = A prescription that can be filled at the local [place] pharmacy.Active: On Hold = An active prescription that will not be filled until pharmacy resolves the issue.Active: Susp = An active prescription that is not scheduled to be filled yet.Clinic Order = A medication received during a visit to a [place] clinic or emergency department (currently not available).Discontinued [...] other providers that was filled outside the [place]. Or, it may be an over the [...] FOR INHALATION ONCE 1 Nov 16, 2018 [id number] October 17, 2018 KOURTNEY DANIELSON [facility] ALBUTEROL SO4 90MCG/ACTUAT (CFC-F) INHL,ORAL,6.7GM Active INHALE 2 PUFFS BY ORAL INHALATION FOUR TIMES A DAY NEEDED - RINSE MOUTHPIECE FREQUENTLY TO PREVENT CLOGGING 1 Apr 24, 2020 [id number] October 18, 2019 KOURTNEY DANIELSON [facility] ALBUTEROL SO4 90MCG/ACTUAT (CFC-F) INHL,ORAL,6.7GM Discontin ued INHALE 2 PUFFS BY ORAL INHALATION FOUR TIMES A DAY NEEDED - RINSE MOUTHPIECE FREQUENTLY TO PREVENT CLOGGING 2 Apr 24, 2020 [id number] Apr 24, 2019 KOURTNEY DANIELSON [facility] BUDESONIDE 160MCG/FORMOTEROL FUM 4.5MCG/SPRAY INHL,ORAL,10.2 GM Active INHALE 2 PUFFS BY ORAL INHALATION TWO TIMES A DAY FOR BREATHING. SHAKE WELL. RINSE MOUTH AND SPIT AFTER EACH USE. 2 Apr 24, 2020 [id number] October 17, 2019 KOURTNEY JOSHI [facility] CALCIUM 500MG (CA CARBONATE-1.25GM) TAB Active: Susp TAKE ONE TABLET BY MOUTH TWO TIMES A DAY 180 Nov 20, 2020 [id number] Jan 09, [address] [facility] CALCIUM 500MG (CA CARBONATE-1.25GM) TAB Discontinued TAKE ONE TABLET BY MOUTH TWO TIMES A DAY 180 Jan 08, 2020 [id number] October 21, 2019 KOURTNEY DANIELSON [facility] [place] CALCIUM 500MG (CA CARBONATE-1.25GM) TAB Discontinued TAKE ONE TABLET BY MOUTH TWO TIMES A DAY 180 Dec 29, 2018 [id number] Oct 01, 2018 NASH KULKARNI [facility] CARBIDOPA 25MG/LEVODOPA 100MG TAB Active TAKE 2 TABLETS BY MOUTH FOUR TIMES A DAY FOR PARKINSON'S DISEASE. DO NOT TAKE WITH FOOD. 240 Nov 24, 2020 [id number] Nov 27, 2019 ALLEGRA HOWE [facility] [place] CARBIDOPA 25MG/LEVODOPA 100MG TAB Discontinued TAKE T WO TABLETS BY MOUTH FIVE TIMES DAILY FOR PARKINSON'S DISEASE. DO NOT TAKE WITH FOOD. 600 Jul 02, 2020 [id number] Nov 19, 2019 TARIQ,[facility] [place] [facility] CARBIDOPA 25MG/LEVODOPA 100MG TAB Discontinued TAKE 2 TABLETS BY MOUTH FIVE TIMES DAILY FOR PARKINSON'S DISEASE. DO NOT TAKE WITH FOOD. 300 Jun 30, 2020 [id number] Jul 01, 2019 [facility] [place] [facility] CARBIDOPA 25MG/LEVODOPA 100MG TAB Discontinued TAKE 2 TABLETS BY MOUTH FOUR TIMES A DAY FOR PARKINSON'S DISEASE. DO NOT TAKE WITH FOOD. 240 Jun 24, 2020 [id number] Jun 26, 2019 [facility] CARBIDOPA 25MG/LEVODOPA 100MG TAB Discontinued TAKE 2 TABLETS BY MOUTH FOUR TIMES A DAY FOR PARKINSON'S DISEASE. DO NOT TAKE WITH FOOD. 240 Dec 25, 2019 [id number] May 15, 2019 [facility] A DIV CARBIDOPA 25MG/LEVODOPA 100MG TAB Discontinued TAKE 2 TABLETS BY MOUTH FOUR TIMES A DAY FOR PARKINSON'S DISEASE. DO NOT TAKE WITH FOOD. 240 Jun 07, 2019 [id number] Nov 18, 2018 [facility] CHOLECALCIFEROL 25MCG (1,000UNIT) TAB Active: Susp TA KE TWO TABLETS BY MOUTH ONCE A DAY FOR VITAMIN D DEFICIENCY 200 Nov 20, 2020 [id number] Dec 172019 [facility] CHOLECALCIFEROL 25MCG (1,000UNIT) TAB Discontinued TA KE TWO TABLETS BY MOUTH ONCE A DAY FOR VITAMIN D DEFICIENCY 200 Dec 25, 2019 [id number] [facility] CHOLECALCIFEROL 25MCG (1,000UNIT) TAB Discontinued TA KE TWO TABLETS BY MOUTH ONCE A DAY FOR VITAMIN D DEFICIENCY 200 Oct 10, 2018 [id number] Aug 172018 [facility] CLOPIDOGREL BISULFATE 75MG TAB Active: Susp TAKE ONE TABLET BY MOUTH ONCE A DAY TO PREVENT BLOOD CLOTS 90 Apr 24, 2020 [id number] Dec 19, 2019 [facility] CLOPIDOGREL BISULFATE 75MG TAB Discontinued TAKE ONE TABLET BY MOUTH ONCE A DAY TO PREVENT BLOOD CLOTS 90 Jun 01, 2019 [id number] Mar 13, 2019 [facility] DIPHENHYDRAMINE [facility]CL 25MG CAP Non-VA TAKE 1 CAPSULE BY MOUTH EVERY 6 HOURS NEEDED Non-VA Documented by: KOURTNEY DANIELSON nted at: [facility] FLUDROCORTISONE ACETATE 0.1MG TAB Active TAKE ONE TABLET BY M OUTH ONCE A DAY 90 Nov 19, 2020 [id number] Nov 20, 2019 [facility] [place] FOLIC ACID 1MG TAB Non- VA TAKE ONE TABLET BY MOUTH ONCE A DAY N on-VA Documented by: KOURTNEY DANIELSON nted at: [facility] GABAPENTIN 300MG CAP Active TAKE 1 CAPSULE BY M OUTH 5 TIMES A DAY FOR PAIN AND TREMORS. 300 October 17, 2020 [id number] October 18, 2019 TARIQKOURTNEY [facility] GABAPENTIN 300MG CAP Discontinued TAKE ONE CAPSULE BY MOUTH FOUR TIMES A DAY FOR PAIN AND TREMORS. 240 Jan 08, 2020 [id number] Oct 14, 2019 [facility] [place] GABAPENTIN 300MG CAP Discontinued TAKE ONE CAPSULE BY MOUTH FOUR TIMES A DAY FOR PAIN AND TREMORS. 240 Mar 08, 2019 [id number] Jan 07, 2019 [facility] [place] HYDROCODONE 10MG/ACETAMINOPHEN 325MG TAB Active TAKE ONE TABLET (10/325MG) BY MOUTH THREE TIMES A DAY NEEDED FOR PAIN CAUTION: DO NOT EXCEED 4000MG/DAY TOTAL OF ACETAMINOPHEN (APAP) FROM ALL MEDS 90 Dec 20, 2019 [id number] Nov 21, 2019 [facility] HYDROCODONE 10MG/ACETAMINOPHEN 325MG TAB Discontinued TAKE ONE TABLET (10/325MG) BY MOUTH THREE TIMES A DAY NEEDED FOR PAIN CAUTION: DO NOT EXCEED 4000MG/DAY TOTAL OF ACETAMINOPHEN (APAP) FROM ALL MEDS 90 Sep 17, 2 020 [id number] Sep 04, 2019 [facility] [place] HYDROCODONE 10MG/ACETAMINOPHEN 325MG TAB Discontinued TAKE ONE TABLET BY MOUTH THREE TIMES A DAY NEEDED FOR PAIN CAUTION: DO NOT EXCEED 4000MG/DAY TOTAL OF ACETAMINOPHEN (APAP) FROM ALL MEDS 90 Jul 26, 2019 [id number] Jun 26, 2019 [facility] [place] HYDROCODONE 10MG/ACETAMINOPHEN 325MG TAB Discontinued TAKE ONE TABLET BY MOUTH THREE TIMES A DAY NEEDED FOR PAIN CAUTION: DO NOT EXCEED 4000MG/DAY TOTAL OF ACETAMINOPHEN (APAP) FROM ALL MEDS 90 Jun 27, 2019 [id number] May 29, 2019 KOURTNEY DANIELSON [facility] [place] HYDROCODONE 10MG/ACETAMINOPHEN 325MG TAB Discontinued TAKE ONE TABLET BY MOUTH THREE TIMES A DAY NEEDED FOR PAIN CAUTION: DO NOT EXCEED 4000MG/DAY TOTAL OF ACETAMINOPHEN (APAP) FROM ALL MEDS 90 May 08, 2019 [id number] Apr 08, 2019 [facility] [place] HYDROCODONE 10MG/ACETAMINOPHEN 325MG TAB Discontinued TAKE ONE TABLET BY MOUTH THREE TIMES A DAY NEEDED FOR PAIN CAUTION: DO NOT EXCEED 4000MG/DAY TOTAL OF ACETAMINOPHEN (APAP) FROM ALL MEDS 90 Mar 28, 2019 [id number] Feb 26, 2019 [facility] [place] HYDROCODONE 10MG/ACETAMINOPHEN 325MG TAB Discontinued TAKE ONE TABLET BY MOUTH THREE TIMES A DAY NEEDED FOR PAIN CAUTION: DO NOT EXCEED 4000MG/DAY TOTAL OF ACETAMINOPHEN (APAP) FROM ALL MEDS 90 Feb 06, 2019 [id number] Jan 07, 2019 [facility]RAYDEN [facility] [place] HYDROCODONE 10MG/ACETAMINOPHEN 325MG TAB Discontinued TAKE ONE TABLET BY MOUTH THREE TIMES A DAY NEEDED FOR PAIN CAUTION: DO NOT EXCEED 4000MG/DAY TOTAL OF ACETAMINOPHEN (APAP) FROM ALL MEDS 90 Dec 05, 2018 [id number] November 05, 2018 [facility] [place] [facility] HYDROCODONE 10MG/ACETAMINOPHEN 325MG TAB Discontinued TAKE ONE TABLET BY MOUTH THREE TIMES A DAY NEEDED FOR PAIN CAUTION: DO NOT EXCEED 4000MG/DAY TOTAL OF ACETAMINOPHEN (APAP) FROM ALL MEDS 90 October 25, 2018 [id number] Sep 25, 2018 [facility] [place] HYDROCODONE 10MG/ACETAMINOPHEN 325MG TAB TAKE ONE TABLET (10/325MG) BY MOUTH THREE TIMES A DAY NEEDED FOR PAIN CAUTION: DO NOT EXCEED 4000MG/DAY TOTAL OF ACETAMINOPHEN (APAP) FROM ALL MEDS 90 November 16, 2019 [id number] October 18, 2019 KOURTNEY DANIELSON [facility] METHOTREXATE NA 2.5MG TAB Active TAKE SEVEN TABLETS BY MOUTH EVERY WEEK October 17, 2020 [id number] November 04, 2019 [facility] METHOTREXATE NA 2.5MG TAB Discontinued TAKE SEVEN TABLETS BY MOUTH EVERY WEEK 90 May 09, 2020 [id number] Aug 16, 2019 NASH KULKARNI [facility] METHOTREXATE NA 2.5MG TAB Discontinued TAKE SEVEN TABLETS BY MOUTH EVERY WEEK 90 Aug 04, 2019 [id number] Feb 22, 2019 JASONYOU [facility] [place] NORTRIPTYLINE HCL 10MG CAP Active TAKE 2 CAPSULES BY MO UTH AT BEDTIME NEEDED 120 Apr 02, 2020 [id number] Nov 20, 2019 [facility] [place] NORTRIPTYLINE HCL 10MG CAP Discontinued TAKE 2 CAPSUL ES BY MOUTH AT BEDTIME NEEDED 120 Mar 20, 2019 [id number] Jan 23, 2019 [facility] OMEPRAZOLE 20MG CAP,EC Active TAKE 1 CAPSULE BY MOUTH EVERY MORNING TO LOWER STOMACH ACID. TAKE 30 MINUTES PRIOR TO FOOD. 90 October 17, 2020 [id number] October 21, 2019 [facility] OMEPRAZOLE 20MG CAP,EC Discontinued TAKE 1 CAPSULE BY MOUTH EVERY MORNING TO LOWER STOMACH ACID. TAKE 30 MINUTES PRIOR TO FOOD. 90 Oct 02, 2019 [id number] Aug 02, 2019 [facility] [place] PREDNISONE 1MG TAB Discontinued TAKE THREE TABLETS B Y MOUTH ONCE A DAY FOR INFLAMMATION AND IMMUNE RESPONSE. TAKE WITH FOOD OR MILK. 270 Fe 2019 [id number] Apr 24, 2019 [facility] PREDNISONE 1MG TAB Discontinued TAKE FOUR TABLETS BY MOUTH ONCE A D AY 360 Apr 22, 2019 [id number] Jan 24, 2019 [facility] [place] PREDNISONE 1MG TAB Discontinued TAKE FOUR TABLETS BY MOUTH ONCE A D AY 360 Dec 29, 2018 [id number] Oct 01, 2018 NASH KULKARNI V [facility] PREDNISONE 1MG TAB TAKE THREE TABLETS B Y MOUTH ONCE A DAY FOR INFLAMMATION AND IMMUNE RESPONSE. TAKE WITH FOOD OR MILK. 270 Ap r 2019 [id number] Jul 13, 2019 [facility] [place] [facility] PREDNISONE 5MG TAB Discontinued TAKE ONE TABLET BY MOUTH ONCE A DAY WITH FOOD 60 Aug 01, 2019 [id number] Sep 25, 2018 KOURTNEY DANIELSON [facility] [place] ROPINIROLE HCL 1MG TAB Active TAKE ONE TABLET BY MOUTH AT BED TIME 90 October 17, 2020 [id number] Nov 25, 2019 KOURTNEY DANIELSON [facility] ROPINIROLE HCL 1MG TAB Discontinued TAKE ONE TABLET BY MOUTH AT BED TIME 90 Dec 05, 2019 [id number] Sep 03, 2019 DEJESUS,ROSCBALDO Abdiaziz [facility] [place] ROPINIROLE HCL 1MG TAB Discontinued TAKE ONE TABLET BY MOUTH AT BED TIME 90 Dec 13, 2018 [id number] Sep 12, 2018 [facility] [place] [facility] TAMSULOSIN HCL 0.4MG CAP Active: Susp TAKE 1 CAPSULE BY MOUTH ONCE A DAY FOR PROSTATE. TAKE AT THE SAME TIME EACH DAY WITH FOOD. 90 Sep 30 1 [id number] Dec 20, 2019 TARIQKOURTNEY SMITH [facility] [place] TAMSULOSIN HCL 0.4MG CAP Discontinued TAKE 1 CAPSULE BY MOUTH ONCE A DAY FOR PROSTATE. TAKE AT THE SAME TIME EACH DAY WITH FOOD. 90 Sep 12 0 [id number] Jun 24, 2019 TEOLIS [facility] [place] Problems (Conditions): All historical and current Section Date Range: From patient's date of to the date document was create d. This section includes a list of Problems (Conditions) know n to VA for the patient. It includes both active and inacti ve problems (conditions). The data comes from all [place] treatment facilities. Problem Status Problem Code Date of Onset Date of Resolution Comm ent(s) Provider Source Abnormal radiologic density Active [id number] KOURTNEY WALKER [facility] [place] Allergic rhinitis Active [id number] LADY SALAZAR [facility] [place] Anemia [id number] [facility] [place] [facility] Chest pain (SNOMED CT 76797603) Active 786.50 [facility] [place] [facility] Chondrocalcinosis Active 198067505 YOU GOMEZ [facility] [place] [facility] Chronic obstructive lung disease Active 26091237 [facility] [place] [facility] Coronary artery disease Active 41329645 Angella LINDSEY [facility] [place] Cough Active 65152458 LADY SALAZAR [facility] [place] Cough (SNOMED CT 24157788) Active 786.2 KOURTNEY BARRON [facility] [place] Dysarthria (SNOMED CT 5345480) Active 784.51 M KOURTNEY WONG [facility] [place] Dyspnea (SNOMED CT 520325495) Active 786.09 KOURTNEY BARKSDALE [facility] [place] [facility] Eruption due to drug Active 43542549 Abdiaziz DANIELSON TORY [facility] [place] Gastroesophageal reflux disease Active 904152702 KOURTNEY DANIELSON [facility] [place] [facility] Hallux valgus AND bunion Active [id number] ALEXANDRO DEISY Dangelo [facility] [place] [facility] Joint pain (SNOMED CT 62527210) Active 719.40 DEISY CONTRERAS [facility] [place] [facility] Joint swelling (SNOMED CT 821875344) Active 719.00 KOURTNEY DANIELSON [facility] [place] Knee pain Active 55166418 JENNIFER LINDSEY [facility] [place] Muscle weakness (SNOMED CT 90704765) Active 728.87 KOURTNEY DANIELSON [facility] [place] [facility] Neuropathy Active [id number] KOURTNEY DANIELSON RN [facility] [place] Osteoarthritis Active 715.36 DYAN SERVIN [facility] [place] Parkinson's disease Active 80206661 ETHAN DANIELSON [facility] [place] [facility] Peripheral Neuropathy Active 356.9 DASARAJU,P URUSHOTHAMA V [facility] [place] [facility] Personal History of Exposure to Agent [place] Active V15.89 DIANEDEISY [facility] [place] Polyp of colon (SNOMED CT 81287126) Active 211.3 TARIQKOURTNEY [facility] [place] [facility] Restless legs Active 58929187 PATRICK WHITE [facility] [place] Rheumatoid arthritis Active 19209159 Abdiaziz DANIELSON TORY [facility] [place] [facility] Screening, Malignancy Active V76.89 LISSETH TOLEDO [facility] [place] [facility] Sleep apnea Active 18969616 KOURTNEY DANIELSON RN [facility] [place] Synovial cyst of popliteal space (SNOMED CT 17079163) Active 727.51 KOURTNEY DANIELSON [facility] [place] [facility] Tobacco dependence in remission Active 423199983 KOURTNEY DANIELSON [facility] [place] Tobacco use Active 986299216 JENNIFER LINDSEY CAROLYN RONALD [facility] [place] Tremor Active 87414850 JENNIFER LINDSEY K S [facility] [place] Unresolved Active 73921793 JENNIFER LINDSEYER N RONALD [facility] [place] Unresolved Active 68484477 JENNIFER LINDSEY N [facility] [place] Radiology Reports: +/- 30 days of the encounter No Data Provided for This Section Pathology Reports: +/- 30 days of the encounter No Data Provided for This Section Encounter Notes: All associated encounter notes This section contains the clinical notes associated to the Encounter. Date/Time Encounter Note(s) Provider Source November 05, 2019 09:57 AM CARE MANAGEMENT NOTE: LOCAL TITLE: EK-PACT CARE MANAGEMENT STANDARD TITLE: CARE MANAGEMENT NOTE DATE OF NOTE: NOVEMBER 05, 2019@09:57 ENTRY DATE: NOVEMBER 05, 2019@09:58:34 AUTHOR: JOSE FRANCISCO SANTA EXP COSIGNER: URGENCY: STATUS: COMPLETED Fax received from Laverne Majano, 4 pages in length: "oKurtney Danielson, I am trying to get my father Carlos Reynolds the help he needs from my mother Sasha. Can you please complete the attached 3 forms and fax them back to me at [phone]? If you have any questions, you can contact me at or my parents at . Thank you! Laverne Majano" Forms: "complete your forms/ medical information" Associate Name: Sasha Reynolds Associate WIN: [phone] Instructions to health care provider: The associate listed above has requested leave under the FMLA to care for your patient. /sofya/ JOSE FRANCISCO SANTA [employer] Signed: 11/05/2019 10:33 Receipt Acknowledged By: * AWAITING SIGNATURE * KOURTNEY DANIELSON SHAUNA C [facility] [place]
--- OUTSIDE RECORDS SUMMARY | 2019-12-04 21:57 | XMS REPORT | Encounter Summary ---
Author Author Department of [facility] CARLOS sweeney Organization Department of [facility] Address [address] [place] [address] Phone Unavailable Care Team Providers Care Control Electrician Name Role Phone TARIQKOURTNEY PCP Unavailable Insurance [...] PLAN G MEDICARE SUPPLEMENT Dec PLAN G [id number] [phone] CARLOS ROMANO PATIENT MEDICARE (WNR) MEDICARE (M) PART A Dec 16, 2014 PART A [id number] CARLOS ROMANO PATIENT MEDICARE (WNR) MEDICARE (M) PART B Dec 16, 2014 PART B [id number] CARLOS ROMANO PATIENT MEDICO DENTAL INSURANCE DENTAL VISIONHEARING Dec 16, 2014 DENTAL VISIONHEAR [id number] [phone] CARLOS ROMANO PATIENT Selected Encounter This section includes the information on record at [facility] for the Encounter. Date/Time Encounter Type Encounter Description Reason Provider Source Dec 04, 2019 11:10 AM Outpatient Encounter ADMIN PAT ACTIVTIES (MASNO NCT) MERGED WITH [facility] [place] IHE Encounter Template Text not used by VA Assessments - Encounter Diagnoses No Data Provided for This Section Plan of Treatment: Future Appointments (+ 6 months) and Future Tests (+/- 45 day s) The Plan of Treatment section includes future care activities for the patient fr om all [place] treatment facilities. This section includes future appointments and fu ture orders which are active, pending or scheduled. Future Appointments This section includes appointments that were scheduled t o occur 6 months from the date of the Encounter, up to a maximum of 20 appointme nts. The data comes from all [facility]. Appointment Date/Time Appointment Type Appointment Facili ty Name Dec 10, 2019 01:30 PM AMBULATORY - MEDICINE [facility] Jan 06, 2020 10:30 AM AMBULATORY - MEDICINE [facility] Active, Pending, and Scheduled Orders This section [...] RATE 5 ML LAVENDER TOP BLOOD SP [facility] Dec 04, 2019 11:10 AM Laboratory - Chemistry Order IRON-TOTAL SS T GEL SERUM SP [facility] Dec 04, 2019 11:10 AM Laboratory - Chemistry Order IRON/TIBC SST GEL SERUM [facility] Surgical Procedures: All associated to the encounter No Data Provided for This Section Lab Results: +/- 30 days of the encounter This section includes the Chemistry and Hematology Lab R esults on record with [place] for the patient. Radiology Reports and Pathology Report s are provided separately, in subsequent sections. Lab Results This section contains the Chemistry/Hematology Results juan t were resulted 30 days before or 30 days after the date of the Encounter. Date/Time Source Result Type Result - Unit Interpretation Reference Range Comment Dec 04, 2019 11:10 AM [facility] FERRITIN Specimen Type: SERUM No comment entered. FERRITIN 6 ng/mL L 22-275 Dec 04, 2019 11:10 AM [facility] LIPID PROFILE(HDL,TRIG ,CHOL,LDL) Specimen Type: PLASMA No comment entered. CHOLESTEROL 75 mg/dL 0-200 TRIGS 38 mg/dL 0-150 HDL-CHOLESTEROL 34 mg/dL L >40 LDL (CALC) 33 mg/dL 0-99.9 Dec 04, 2019 11:10 AM [facility] TSH Specimen Type: SERUM No comment entered. TSH 1.51 uIU/mL 0.47-5.00 Dec 04, 2019 11:10 AM [facility] PROSTATIC SPECIFIC ANT IGEN(TOTAL) Specimen Type: SERUM No comment entered. PROSTATIC SPECIFIC ANTIGEN(TOTAL) 1.68 ng/mL 0-4 Dec 04, 2019 11:10 AM [facility] VITAMIN D (25-OH) Specimen Type: SERUM No comment entered. VITAMIN D (25-OH) 36.4 ng/mL 30.0-96.0 Dec 04, 2019 11:10 AM [facility] FOLATE Specimen Type: SERUM No comment entered. FOLATE >40.0 ng/mL H 7.0-20.0 Dec 04, 2019 11:10 AM [facility] VITAMIN B12 Specimen Type: SERUM No comment entered. VITAMIN B12 491 pg/mL 213-816 Dec 04, 2019 11:10 AM [facility] C-REACTIVE PROTEIN Specimen Type: SERUM No comment entered. C-REACTIVE PROTEIN 9.77 mg/dL H 0.0-0.5 Dec 04, 2019 11:10 AM [facility] COMPREHENSIVE METABOLI C PANEL Specimen Type: [...] EGFR 73.2 Dec 04, 2019 11:10 AM [facility] CBC & DIFF Specimen Type: BLOOD Comment: PANIC VALUE CALLED AND READ BACK by Kourtney Danielson @ 6566 WBC 8.08 K/cmm 3.60-11.20 RBC 1.83 M/ul [...] Adverse Reactions (ADR s) on record with [place] for the patient. The data comes from a [facility] treatment facilities. It does not list Allergies/ADRs that were removed or entered in error. Some allergies/ADRs may be reported in t he Immunization section. Allergen Event Date Event Type Reaction(s) Severity Source PANTOPRAZOLE Oct 01, 2018 Propensity to adverse reactions to drug (disorder) Eruption [facility] PENICILLIN Jul 17, 2012 Propensity to adverse reactions to drug (disorder) Peripheral edema [facility] Medications: VA dispensed (-15 months) and Non-VA Documented (Obtained Outside A) Section Date Range: 1) prescriptions processed by a VA pharmacy in the last 15 m [facility], and 2) all medications recorded in the [place] medical record as "non-VA medic ations". Pharmacy terms refer to VA pharmacy's work on prescriptions. VA patient s are advised to take their medications as instructed by their health care team. The data comes from all [place] treatment facilities. Glossary of Pharmacy Terms:Active = A prescription that can be filled at the local VA pharmacy.Active: On Hold = An active prescription that will not be filled until pharmacy resolves the issue.Active: Susp = An active prescription that is not scheduled to be filled yet.Clinic Order = A medication received during a visit to a [place] clinic or emergency department (currently not available).Discontinued [...] may be a prescription from either the [place] or other providers that was filled outside the [place]. Or, it may be an over the [...] FOR INHALATION ONCE 1 Nov 16, 2018 [id number] October 17, 2018 KOURTNEY DANIELSON [facility] ALBUTEROL SO4 90MCG/ACTUAT (CFC-F) INHL,ORAL,6.7GM Active INHALE 2 PUFFS BY ORAL INHALATION FOUR TIMES A DAY NEEDED - RINSE MOUTHPIECE FREQUENTLY TO PREVENT CLOGGING Apr 24, 2020 [id number] October 18, 2019 KOURTNEY DANIELSON [facility] ALBUTEROL SO4 90MCG/ACTUAT (CFC-F) INHL,ORAL,6.7GM Discontin ued INHALE 2 PUFFS BY ORAL INHALATION FOUR TIMES A DAY NEEDED - RINSE MOUTHPIECE FREQUENTLY TO PREVENT CLOGGING 2 Apr 24, 2020 [id number] Apr 24, 2019 KOURTNEY DANIELSON [facility] BUDESONIDE 160MCG/FORMOTEROL FUM 4.5MCG/SPRAY INHL,ORAL,10.2 GM Active INHALE 2 PUFFS BY ORAL INHALATION TWO TIMES A DAY FOR BREATHING. SHAKE WELL. RINSE MOUTH AND SPIT AFTER EACH USE. 2 Apr 24, 2020 [id number] October 17, 2019 KOURTNEY JOSHI [facility] CALCIUM 500MG (CA CARBONATE-1.25GM) TAB Active: Susp TAKE ONE TABLET BY MOUTH TWO TIMES A DAY 180 Nov 20, 2020 [id number] Jan 09, 2020 KOURTNEY DANIELSON [facility] [address] CALCIUM 500MG (CA CARBONATE-1.25GM) TAB Discontinued TAKE ONE TABLET BY MOUTH TWO TIMES A DAY 180 Jan 08, 2020 [id number] October 21, [address] [facility] [place] CALCIUM 500MG (CA CARBONATE-1.25GM) TAB Discontinued TAKE ONE TABLET BY MOUTH TWO TIMES A DAY 180 Dec 29, 2018 [id number] Oct 01, 2018 [facility] CARBIDOPA 25MG/LEVODOPA 100MG TAB Active TAKE 2 TABLETS BY MOUTH FOUR TIMES A DAY FOR PARKINSON'S DISEASE. DO NOT TAKE WITH FOOD. 240 Nov 24, 2020 [id number] Nov 27, 2019 [facility] [place] CARBIDOPA 25MG/LEVODOPA 100MG TAB Discontinued TAKE T WO TABLETS BY MOUTH FIVE TIMES DAILY FOR PARKINSON'S DISEASE. DO NOT TAKE WITH FOOD. 600 Jul 02, 2020 [id number] Nov 19, 2019 [facility] [place] [facility] CARBIDOPA 25MG/LEVODOPA 100MG TAB Discontinued TAKE 2 TABLETS BY MOUTH FIVE TIMES DAILY FOR PARKINSON'S DISEASE. DO NOT TAKE WITH FOOD. 300 Jun 30, 2020 [id number] Jul 01, 2019 [facility] [place] [facility] CARBIDOPA 25MG/LEVODOPA 100MG TAB Discontinued TAKE 2 TABLETS BY MOUTH FOUR TIMES A DAY FOR PARKINSON'S DISEASE. DO NOT TAKE WITH FOOD. 240 Jun 24, 2020 [id number] Jun 26, 2019 [facility] [place] [facility] CARBIDOPA 25MG/LEVODOPA 100MG TAB Discontinued TAKE 2 TABLETS BY MOUTH FOUR TIMES A DAY FOR PARKINSON'S DISEASE. DO NOT TAKE WITH FOOD. 240 Dec 25, 2019 [id number] May 15, 2019 [facility] [place] [facility] CARBIDOPA 25MG/LEVODOPA 100MG TAB Discontinued TAKE 2 TABLETS BY MOUTH FOUR TIMES A DAY FOR PARKINSON'S DISEASE. DO NOT TAKE WITH FOOD. 240 Jun 07, 2019 [id number] Nov 18, [address] [facility] [place] [facility] CHOLECALCIFEROL 25MCG (1,000UNIT) TAB Active: Susp TA KE TWO TABLETS BY MOUTH ONCE A DAY FOR VITAMIN D DEFICIENCY 200 Nov 20, 2020 [id number] Dec 172019 [facility] CHOLECALCIFEROL 25MCG (1,000UNIT) TAB Discontinued TA KE TWO TABLETS BY MOUTH ONCE A DAY FOR VITAMIN D DEFICIENCY 200 Dec 25, 2019 [id number] October [facility] [place] CHOLECALCIFEROL 25MCG (1,000UNIT) TAB Discontinued TA KE TWO TABLETS BY MOUTH ONCE A DAY FOR VITAMIN D DEFICIENCY 200 Oct 10, 2018 [id number] Aug 172018 [facility] CLOPIDOGREL BISULFATE 75MG TAB Active: Susp TAKE ONE TABLET BY MOUTH ONCE A DAY TO PREVENT BLOOD CLOTS 90 Apr 24, 2020 [id number] Dec 19, 2019 [facility] CLOPIDOGREL BISULFATE 75MG TAB Discontinued TAKE ONE TABLET BY MOUTH ONCE A DAY TO PREVENT BLOOD CLOTS 90 Jun 01, 2019 [id number] Mar 13, 2019 [facility] [place] DIPHENHYDRAMINE HCL 25MG CAP Non-VA TAKE 1 CAPSULE BY MOUTH EVERY 6 HOURS NEEDED Non-VA Documented by: KOURTNEY DANIELSON nted at: [facility] FLUDROCORTISONE ACETATE 0.1MG TAB Active TAKE ONE TABLET BY M OUTH ONCE A DAY 90 Nov 19, 2020 [id number] Nov 20, 2019 [facility] [place] FOLIC ACID 1MG TAB Non- [place] TAKE ONE TABLET BY MOUTH ONCE A DAY N on-VA Documented by: KOURTNEY DANIELSON nted at: [facility] GABAPENTIN 300MG CAP Active TAKE 1 CAPSULE BY M OUTH 5 TIMES A DAY FOR PAIN AND TREMORS. 300 October 17, 2020 [id number] October 18, 2019 TARIQKOURTNEY [facility] GABAPENTIN 300MG CAP Discontinued TAKE ONE CAPSULE BY MOUTH FOUR TIMES A DAY FOR PAIN AND TREMORS. 240 Jan 08, 2020 [id number] Oct 14, 2019 [facility] [place] GABAPENTIN 300MG CAP Discontinued TAKE ONE CAPSULE BY MOUTH FOUR TIMES A DAY FOR PAIN AND TREMORS. 240 Mar 08, 2019 [id number] Jan 07, 2019 [facility] [place] HYDROCODONE 10MG/ACETAMINOPHEN 325MG TAB Active TAKE ONE TABLET (10/325MG) BY MOUTH THREE TIMES A DAY NEEDED FOR PAIN CAUTION: DO NOT EXCEED 4000MG/DAY TOTAL OF ACETAMINOPHEN (APAP) FROM ALL MEDS 90 Dec 20, 2019 [id number] Nov 21, 2019 [facility] HYDROCODONE 10MG/ACETAMINOPHEN 325MG TAB Discontinued TAKE ONE TABLET (10/325MG) BY MOUTH THREE TIMES A DAY NEEDED FOR PAIN CAUTION: DO NOT EXCEED 4000MG/DAY TOTAL OF ACETAMINOPHEN (APAP) FROM ALL MEDS 90 Sep 17, 2 020 [id number] Sep 04, [address] [facility] [place] HYDROCODONE 10MG/ACETAMINOPHEN 325MG TAB Discontinued TAKE ONE TABLET BY MOUTH THREE TIMES A DAY NEEDED FOR PAIN CAUTION: DO NOT EXCEED 4000MG/DAY TOTAL OF ACETAMINOPHEN (APAP) FROM ALL MEDS 90 Jul 26, 2019 [id number] Jun 26, 2019 [facility] [place] HYDROCODONE 10MG/ACETAMINOPHEN 325MG TAB Discontinued TAKE ONE TABLET BY MOUTH THREE TIMES A DAY NEEDED FOR PAIN CAUTION: DO NOT EXCEED 4000MG/DAY TOTAL OF ACETAMINOPHEN (APAP) FROM ALL MEDS 90 Jun 27, 2019 [id number] May 29, 2019 [facility] [place] HYDROCODONE 10MG/ACETAMINOPHEN 325MG TAB Discontinued TAKE ONE TABLET BY MOUTH THREE TIMES A DAY NEEDED FOR PAIN CAUTION: DO NOT EXCEED 4000MG/DAY TOTAL OF ACETAMINOPHEN (APAP) FROM ALL MEDS 90 May 08, 2019 [id number] Apr 08, 2019 [facility] [place] HYDROCODONE 10MG/ACETAMINOPHEN 325MG TAB Discontinued TAKE ONE TABLET BY MOUTH THREE TIMES A DAY NEEDED FOR PAIN CAUTION: DO NOT EXCEED 4000MG/DAY TOTAL OF ACETAMINOPHEN (APAP) FROM ALL MEDS 90 Mar 28, 2019 [id number] Feb 26, 2019 [facility]DEN [facility] [place] HYDROCODONE 10MG/ACETAMINOPHEN 325MG TAB Discontinued TAKE ONE TABLET BY MOUTH THREE TIMES A DAY NEEDED FOR PAIN CAUTION: DO NOT EXCEED 4000MG/DAY TOTAL OF ACETAMINOPHEN (APAP) FROM ALL MEDS 90 Feb 06, 2019 [id number] Jan 07, 2019 [facility]DEN [facility] [place] HYDROCODONE 10MG/ACETAMINOPHEN 325MG TAB Discontinued TAKE ONE TABLET BY MOUTH THREE TIMES A DAY NEEDED FOR PAIN CAUTION: DO NOT EXCEED 4000MG/DAY TOTAL OF ACETAMINOPHEN (APAP) FROM ALL MEDS 90 Dec 05, 2018 [id number] November 05, 2018 [facility] [place] HYDROCODONE 10MG/ACETAMINOPHEN 325MG TAB Discontinued TAKE ONE TABLET BY MOUTH THREE TIMES A DAY NEEDED FOR PAIN CAUTION: DO NOT EXCEED 4000MG/DAY TOTAL OF ACETAMINOPHEN (APAP) FROM ALL MEDS 90 October 25, 2018 [id number] Sep 25, 2018 [facility] [place] HYDROCODONE 10MG/ACETAMINOPHEN 325MG TAB TAKE ONE TABLET (10/325MG) BY MOUTH THREE TIMES A DAY NEEDED FOR PAIN CAUTION: DO NOT EXCEED 4000MG/DAY TOTAL OF ACETAMINOPHEN (APAP) FROM ALL MEDS 90 November 16, 2019 [id number] October 18, 2019 [facility] METHOTREXATE NA 2.5MG TAB Active TAKE SEVEN TABLETS BY MOUTH EVERY WEEK October 17, 2020 [id number] November 04, 2019 [facility] METHOTREXATE NA 2.5MG TAB Discontinued TAKE SEVEN TABLETS BY MOUTH EVERY WEEK 90 May 09, 2020 [id number] Aug 16, 2019 NASH KULKARNI [facility] METHOTREXATE NA 2.5MG TAB Discontinued TAKE SEVEN TABLETS BY MOUTH EVERY WEEK 90 Aug 04, 2019 [id number] Feb 22, [address] [facility] [place] NORTRIPTYLINE HCL 10MG CAP Active TAKE 2 CAPSULES BY MO UTH AT BEDTIME NEEDED 120 Apr 02, 2020 [id number] Nov 20, 2019 [facility] [place] NORTRIPTYLINE HCL 10MG CAP Discontinued TAKE 2 CAPSUL ES BY MOUTH AT BEDTIME NEEDED 120 Mar 20, 2019 [id number] Jan 23, 2019 [facility] OMEPRAZOLE 20MG CAP,EC Active TAKE 1 CAPSULE BY MOUTH EVERY MORNING TO LOWER STOMACH ACID. TAKE 30 MINUTES PRIOR TO FOOD. 90 October 17, 2020 [id number] October 21, 2019 [facility] OMEPRAZOLE 20MG CAP,EC Discontinued TAKE 1 CAPSULE BY MOUTH EVERY MORNING TO LOWER STOMACH ACID. TAKE 30 MINUTES PRIOR TO FOOD. 90 Oct 02, 2019 [id number] Aug 02, 2019 [facility] [place] PREDNISONE 1MG TAB Discontinued TAKE THREE TABLETS B Y MOUTH ONCE A DAY FOR INFLAMMATION AND IMMUNE RESPONSE. TAKE WITH FOOD OR MILK. 270 Fe 2019 [id number] Apr 24, 2019 [facility] PREDNISONE 1MG TAB Discontinued TAKE FOUR TABLETS BY MOUTH ONCE A D AY 360 Apr 22, 2019 [id number] Jan 24, 2019 BLUE DAVIES [facility] [place] PREDNISONE 1MG TAB Discontinued TAKE FOUR TABLETS BY MOUTH ONCE A D AY 360 Dec 29, 2018 [id number] Oct 01, 2018 NASH KULKARNI [facility] PREDNISONE 1MG TAB TAKE THREE TABLETS B Y MOUTH ONCE A DAY FOR INFLAMMATION AND IMMUNE RESPONSE. TAKE WITH FOOD OR MILK. 270 Ap r 2019 [id number] Jul 13, 2019 [facility] [place] PREDNISONE 5MG TAB Discontinued TAKE ONE TABLET BY MOUTH ONCE A DAY WITH FOOD 60 Aug 01, 2019 [id number] Sep 25, 2018 [facility] [place] ROPINIROLE HCL 1MG TAB Active TAKE ONE TABLET BY MOUTH AT BED TIME 90 October 17, 2020 [id number] Nov 25, 2019 [facility] ROPINIROLE HCL 1MG TAB Discontinued TAKE ONE TABLET BY MOUTH AT BED TIME 90 Dec 05, 2019 [id number] Sep 03, [address] [facility] [place] ROPINIROLE HCL 1MG TAB Discontinued TAKE ONE TABLET BY MOUTH AT BED TIME 90 Dec 13, 2018 [id number] Sep 12, [address] [facility] [place] [facility] TAMSULOSIN HCL 0.4MG CAP Active: Susp TAKE 1 CAPSULE BY MOUTH ONCE A DAY FOR PROSTATE. TAKE AT THE SAME TIME EACH DAY WITH FOOD. 90 Sep 30 1 [id number] Dec 20, [address] [facility] [place] TAMSULOSIN HCL 0.4MG CAP Discontinued TAKE 1 CAPSULE BY MOUTH ONCE A DAY FOR PROSTATE. TAKE AT THE SAME TIME EACH DAY WITH FOOD. 90 Sep 12 0 [id number] Jun 24, [address] [facility] [place] Problems (Conditions): All historical and current Section Date Range: From patient's date of to the date document was create d. This section includes a list of Problems (Conditions) know n to [place] for the patient. It includes both active and inacti ve problems (conditions). The data comes from all [place] treatment facilities. Problem Status Problem Code Date of Onset Date of Resolution Comm ent(s) Provider Source Abnormal radiologic density Active [id number] KOURTNEY HWANG [facility] [place] Allergic rhinitis Active 19588936 ASLAZARLADY [facility] [place] [facility] Anemia Active [id number] KOURTNEY DANIELSON [facility] [place] [facility] Chest pain (SNOMED CT 29092371) Active 786.50 [address] [facility] [place] [facility] Chondrocalcinosis Active [id number] YOU GOMEZ [facility] [place] [facility] Chronic obstructive lung disease Active [id number] [facility] [place] Coronary artery disease Active [id number] Angella LINDSEY [facility] [place] [facility] Cough Active 00193786 LADY [place] Angella [facility] [place] [facility] Cough (SNOMED CT 34475687) Active 786.[address] [facility] [place] [facility] Dysarthria (SNOMED CT 6210997) Active 784.51 M JACOBOKOURTNEY Ortega [facility] [place] [facility] Dyspnea (SNOMED CT 501820454) Active 786.[address] [facility] [place] [facility] Eruption due to drug Active 92143536 Abdiaziz DANIELSON TORY [facility] [place] [facility] Gastroesophageal reflux disease Active [id number] KOURTNEY DANIELSON [facility] [place] [facility] Hallux valgus AND bunion Active [id number] DEISY GERMAIN [facility] [place] [facility] Joint pain (SNOMED CT 39115064) Active 719.[address] [facility] [place] [facility] Joint swelling (SNOMED CT 950659022) Active 719.[address] [facility] [place] [facility] Knee pain Active 03807608 JENNIFER LINDSEY [facility] [place] [facility] Muscle weakness (SNOMED CT 00810774) Active 728.[address] [facility] [place] [facility] Neuropathy Active [id number] KOURTNEY DANIELSON RN [facility] [place] Osteoarthritis Active 715.[address] [facility] [place] Parkinson's disease Active 11044584 ETHAN DANIELSON KAYLYN [facility] [place] [facility] Peripheral Neuropathy Active 356.9 DASARAJU,P URUSHOTHAMA [facility] [place] Personal History of Exposure to Agent Underwood Active V15.[address] [facility] [place] [facility] Polyp of colon (SNOMED CT 11680898) Active 211.3 [address] [facility] [place] [facility] Restless legs Active 11891523 PATRICK WHITE [facility] [place] Rheumatoid arthritis Active 19946911 Abdiaziz DANIELSON TORY [facility] [place] [facility] Screening, Malignancy Active V76.[address] [facility] [place] [facility] Sleep apnea Active [id number] KOURTNEY DANIELSON RN [facility] [place] Synovial cyst of popliteal space (SNOMED CT 46248476) Active 727.51 [address] [facility] [place] [facility] Tobacco dependence in remission Active 575300282 TARIQKOURTNEY SMITH [facility] [place] Tobacco use Active [id number] JENNIFER LINDSEY CAROLYN [facility] [place] Tremor Active 03051171 JENNIFER LINDSEY K [facility] [place] Unresolved Active 23490499 JENNIFER LINDSEY [facility] [place] Unresolved Active 32549579 JENNIFER LINDSEY [facility] [place] Radiology Reports: +/- 30 days of the encounter No Data Provided for This Section Pathology Reports: +/- 30 days of the encounter No Data Provided for This Section Encounter Notes: All associated encounter notes This section contains the clinical notes associated to the Encounter. Date/Time Encounter Note(s) Provider Source Dec 04, 2019 11:10 AM ADMINISTRATIVE NOTE: LOCAL TITLE: EK-ADMINISTRATIVE COVID-19 STANDARD TITLE: ADMINISTRATIVE NOTE DATE OF NOTE: DEC 04, 2019@11:10 ENTRY DATE: DEC 04, 2019@11:11:05 AUTHOR: VERONICA LLANOS EXP COSIGNER: URGENCY: STATUS: COMPLETED Coronavirus Disease 2019 (COVID-19) Screen The patient reports that they have not been diagnosed with COVID-19. The patient reports that they are not waiting for the results of a COVID-19 lab test. The patient reports that they do not have a fever. The patient reports that they do not have a new or worsening cough or shortness of breath. The patient reports they do not have any cold or flu-like symptoms. The patient reports they do not have any new onset of diarrhea, nausea or vomiting. The patient reports they do not have any new onset of headache, loss of taste or loss of smell. Result: Screen is negative. /sofya/ VERONICA LLANOS Signed: 12/04/2019 11:[address] [facility] [place] [facility]
--- OUTSIDE RECORDS SUMMARY | 2019-12-04 21:57 | XMS REPORT | Encounter Summary ---
Author Author Department [facility] CARLOS sweeney Organization Department of 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 Date/Time Encounter Type Encounter Description Reason Provider Source Dec 03, 2019 01:00 PM Outpatient Encounter RHEUMATOLOG[facility] Encounter Template Text not used by [place] Assessments - Encounter Diagnoses No Data Provided for This Section Plan of Treatment: Future Appointments (+ 6 months) and Future Tests (+/- 45 day s) The Plan of Treatment section includes future care activities for the patient fr om all [place] treatment facilities. This section includes future appointments and fu ture orders which are active, pending or scheduled. Future Appointments This section includes appointments that were scheduled t o occur 6 months from the date of the Encounter, up to a maximum of 20 appointme nts. The data comes from all [facility]. Appointment Date/Time Appointment Type Appointment Facili ty Name Dec 04, 2019 10:45 AM [facility]ATORY [facility] Dec 10, 2019 01:30 PM [facility] Jan 06, 2020 10:30 AM [facility] Active, Pending, and Scheduled Orders This [...] the Encounter. The data comes from all [facility]. Test Date/Time Test Type Test Details Facility Name Dec 04, 2019 11:10 AM Laboratory - Chemistry Order ERYTHROCY TE SEDIMENTATION RATE 5 ML LAVENDER TOP BLOOD SP [facility] Dec 04, 2019 11:10 AM Laboratory - Chemistry Order IRON-TOTAL SS T GEL SERUM SP [facility] Dec 04, 2019 11:10 AM Laboratory - Chemistry Order IRON/TIBC SST GEL SERUM [facility] Surgical Procedures: All associated to the encounter No Data Provided for This Section Lab Results: +/- 30 days of the encounter This section includes the Chemistry and Hematology Lab R esults on record with [place] for the patient. Radiology Reports and Pathology Report s are provided separately, in subsequent sections. Lab Results This section contains the Chemistry/Hematology Results juan t were resulted 30 days before or 30 days after the date of the Encounter. Date/Time Source Result Type Result - Unit Interpretation Reference Range Comment Dec 04, 2019 11:10 AM [facility] FERRITIN Specimen Type: SERUM No comment entered. FERRITIN 6 ng/mL L 22-275 Dec 04, 2019 11:10 AM [facility] LIPID PROFILE(HDL,TRIG ,CHOL,LDL) Specimen Type: PLASMA No comment entered. CHOLESTEROL 75 mg/dL 0-200 TRIGS 38 mg/dL 0-150 HDL-CHOLESTEROL 34 mg/dL L >40 LDL (CALC) 33 mg/dL 0-99.9 Dec 04, 2019 11:10 AM [facility] TSH Specimen Type: SERUM No comment entered. TSH 1.51 uIU/mL 0.47-5.00 Dec 04, 2019 11:10 AM [facility] PROSTATIC SPECIFIC ANT IGEN(TOTAL) Specimen Type: SERUM No comment entered. PROSTATIC SPECIFIC ANTIGEN(TOTAL) 1.68 ng/mL 0-4 Dec 04, 2019 11:10 AM [facility] VITAMIN D (25-OH) Specimen Type: SERUM No comment entered. VITAMIN D (25-OH) 36.4 ng/mL 30.0-96.0 Dec 04, 2019 11:10 AM [facility] FOLATE Specimen Type: SERUM No comment entered. FOLATE >40.0 ng/mL H 7.0-20.0 Dec 04, 2019 11:10 AM [facility] VITAMIN B12 Specimen Type: SERUM No comment entered. VITAMIN B12 491 pg/mL 213-816 Dec 04, 2019 11:10 AM [facility] C-REACTIVE PROTEIN Specimen Type: SERUM No comment entered. C-REACTIVE PROTEIN 9.77 mg/dL H 0.0-0.5 Dec 04, 2019 11:10 AM [facility] COMPREHENSIVE METABOLI C PANEL Specimen Type: [...] EGFR 73.2 Dec 04, 2019 11:10 AM [facility] CBC & DIFF Specimen Type: BLOOD [...] Adverse Reactions (ADR s) on record with [place] for the patient. The data comes from a [facility] treatment facilities. It does not list Allergies/ADRs that were removed or entered in error. Some allergies/ADRs may be reported in t Immunization section. Allergen Event Date Event Type Reaction(s) Severity Source PANTOPRAZOLE Oct 01, 2018 Propensity to adverse reactions to drug (disorder) Eruption [facility] [place]EN[place] Jul 17, 2012 Propensity to adverse reactions to drug (disorder) Peripheral edema [facility] Medications: VA dispensed (-15 months) and Non-VA Documented (Obtained Outside V A) Section Date Range: 1) prescriptions processed by a VA pharmacy in the last 15 m [facility], and 2) all medications recorded in the [place] medical record as "non-VA medic ations". Pharmacy terms refer to VA pharmacy's work on prescriptions. VA patient s are advised to take their medications as instructed by their health care team. The data comes from all [place] treatment facilities. Glossary of Pharmacy Terms:Active = A prescription that can be filled at the local [place] pharmacy.Active: On Hold = An active prescription that will not be filled until pharmacy resolves the issue.Active: Susp = An active prescription that is not scheduled to be filled yet.Clinic Order = A medication received during a visit to a [place] clinic or emergency department (currently not available).Discontinued [...] may be a prescription from either the [place] or other providers that was filled outside the [place]. Or, it may be an over the [...] FOR INHALATION ONCE 1 Nov 16, 2018 [id number] October 17, 2018 KOURTNEY DANIELSON [facility] ALBUTEROL SO4 90MCG/ACTUAT (CFC-F) INHL,ORAL,6.7GM Active INHALE 2 PUFFS BY ORAL INHALATION FOUR TIMES A DAY NEEDED - RINSE MOUTHPIECE FREQUENTLY TO PREVENT CLOGGING Apr 24, 2020 [id number] October 18, 2019 KOURTNEY DANIELSON [facility] ALBUTEROL SO4 90MCG/ACTUAT (CFC-F) INHL,ORAL,6.7GM Discontin ued INHALE 2 PUFFS BY ORAL INHALATION FOUR TIMES A DAY NEEDED - RINSE MOUTHPIECE FREQUENTLY TO PREVENT CLOGGING 2 Apr 24, 2020 [id number] Apr 24, [address] [facility] BUDESONIDE 160MCG/FORMOTEROL FUM 4.5MCG/SPRAY INHL,ORAL,10.2 GM Active INHALE 2 PUFFS BY ORAL INHALATION TWO TIMES A DAY FOR BREATHING. SHAKE WELL. RINSE MOUTH AND SPIT AFTER EACH USE. 2 Apr 24, 2020 [id number] October 17, 2019 KOURTNEY JOSHI [facility] CALCIUM 500MG (CA CARBONATE-1.25GM) TAB Active: Susp TAKE ONE TABLET BY MOUTH TWO TIMES A DAY 180 Nov 20, 2020 [id number] Jan 09, 2020 KOURTNEY DANIELSON [facility] CALCIUM 500MG (CA CARBONATE-1.25GM) TAB Discontinued TAKE ONE TABLET BY MOUTH TWO TIMES A DAY 180 Jan 08, 2020 [id number] October 21, 2019 KOURTNEY DANIELSON [facility] [place] CALCIUM 500MG (CA CARBONATE-1.25GM) TAB Discontinued TAKE ONE TABLET BY MOUTH TWO TIMES A DAY 180 Dec 29, 2018 [id number] Oct 01, 2018 NASH KULKARNI [facility] CARBIDOPA 25MG/LEVODOPA 100MG TAB Active TAKE 2 TABLETS BY MOUTH FOUR TIMES A DAY FOR PARKINSON'S DISEASE. DO NOT TAKE WITH FOOD. 240 Nov 24, 2020 [id number] Nov 27, 2019 [facility] [place] [facility] CARBIDOPA 25MG/LEVODOPA 100MG TAB Discontinued TAKE T WO TABLETS BY MOUTH FIVE TIMES DAILY FOR PARKINSON'S DISEASE. DO NOT TAKE WITH FOOD. 600 Jul 02, 2020 [id number] Nov 19, 2019 [facility] [place] [facility] CARBIDOPA 25MG/LEVODOPA 100MG TAB Discontinued TAKE 2 TABLETS BY MOUTH FIVE TIMES DAILY FOR PARKINSON'S DISEASE. DO NOT TAKE WITH FOOD. 300 Jun 30, 2020 [id number] Jul 01, 2019 [facility] [place] [facility] CARBIDOPA 25MG/LEVODOPA 100MG TAB Discontinued TAKE 2 TABLETS BY MOUTH FOUR TIMES A DAY FOR PARKINSON'S DISEASE. DO NOT TAKE WITH FOOD. 240 Jun 24, 2020 [id number] Jun 26, 2019 [facility] [place] [facility] CARBIDOPA 25MG/LEVODOPA 100MG TAB Discontinued TAKE 2 TABLETS BY MOUTH FOUR TIMES A DAY FOR PARKINSON'S DISEASE. DO NOT TAKE WITH FOOD. 240 Dec 25, 2019 [id number] May 15, 2019 [facility] [place] [facility] CARBIDOPA 25MG/LEVODOPA 100MG TAB Discontinued TAKE 2 TABLETS BY MOUTH FOUR TIMES A DAY FOR PARKINSON'S DISEASE. DO NOT TAKE WITH FOOD. 240 Jun 07, 2019 [id number] Nov 18, 2018 ALLEGRA HOWE [facility] [place] [facility] CHOLECALCIFEROL 25MCG (1,000UNIT) TAB Active: Susp TA KE TWO TABLETS BY MOUTH ONCE A DAY FOR VITAMIN D DEFICIENCY 200 Nov 20, 2020 [id number] Dec 172019 [facility] CHOLECALCIFEROL 25MCG (1,000UNIT) TAB Discontinued TA KE TWO TABLETS BY MOUTH ONCE A DAY FOR VITAMIN D DEFICIENCY 200 Dec 25, 2019 [id number] October [facility] [place] [facility] CHOLECALCIFEROL 25MCG (1,000UNIT) TAB Discontinued TA KE TWO TABLETS BY MOUTH ONCE A DAY FOR VITAMIN D DEFICIENCY 200 Oct 10, 2018 [id number] Aug 172018 [facility] CLOPIDOGREL BISULFATE 75MG TAB Active: Susp TAKE ONE TABLET BY MOUTH ONCE A DAY TO PREVENT BLOOD CLOTS 90 Apr 24, 2020 [id number] Dec 19, 2019 [facility] CLOPIDOGREL BISULFATE 75MG TAB Discontinued TAKE ONE TABLET BY MOUTH ONCE A DAY TO PREVENT BLOOD CLOTS 90 Jun 01, 2019 [id number] Mar 13, 2019 [facility] [place] [facility] DIPHENHYDRAMINE HCL 25MG CAP Non-VA TAKE 1 CAPSULE BY MOUTH EVERY 6 HOURS NEEDED Non-VA Documented by: KOURTNEY DANIELSON nted at: [facility] FLUDROCORTISONE ACETATE 0.1MG TAB Active TAKE ONE TABLET BY M OUTH ONCE A DAY 90 Nov 19, 2020 [id number] Nov 20, 2019 KOURTNEY DANIELSON [facility] [place] [facility] FOLIC ACID 1MG TAB Non- VA TAKE ONE TABLET BY MOUTH ONCE A DAY N on-VA Documented by: KOURTNEY DANIELSON nted at: [facility] GABAPENTIN 300MG CAP Active TAKE 1 CAPSULE BY M OUTH 5 TIMES A DAY FOR PAIN AND TREMORS. 300 October 17, 2020 [id number] October 18, 2019 TARIQ,DANA [facility]AS [facility] GABAPENTIN 300MG CAP Discontinued TAKE ONE CAPSULE BY MOUTH FOUR TIMES A DAY FOR PAIN AND TREMORS. 240 Jan 08, 2020 [id number] Oct 14, 2019 [facility] [place] [facility] GABAPENTIN 300MG CAP Discontinued TAKE ONE CAPSULE BY MOUTH FOUR TIMES A DAY FOR PAIN AND TREMORS. 240 Mar 08, 2019 [id number] Jan 07, 2019 [facility] [place] [facility] HYDROCODONE 10MG/ACETAMINOPHEN 325MG TAB Active TAKE ONE TABLET (10/325MG) BY MOUTH THREE TIMES A DAY NEEDED FOR PAIN CAUTION: DO NOT EXCEED 4000MG/DAY TOTAL OF ACETAMINOPHEN (APAP) FROM ALL MEDS 90 Dec 20, 2019 [id number] Nov 21, 2019 [facility] HYDROCODONE 10MG/ACETAMINOPHEN 325MG TAB Discontinued TAKE ONE TABLET (10/325MG) BY MOUTH THREE TIMES A DAY NEEDED FOR PAIN CAUTION: DO NOT EXCEED 4000MG/DAY TOTAL OF ACETAMINOPHEN (APAP) FROM ALL MEDS 90 Sep 17, 2 020 [id number] Sep 04, 2019 [facility] [place] [facility] HYDROCODONE 10MG/ACETAMINOPHEN 325MG TAB Discontinued TAKE ONE TABLET BY MOUTH THREE TIMES A DAY NEEDED FOR PAIN CAUTION: DO NOT EXCEED 4000MG/DAY TOTAL OF ACETAMINOPHEN (APAP) FROM ALL MEDS 90 Jul 26, 2019 [id number] Jun 26, 2019 [facility] [place] [facility] HYDROCODONE 10MG/ACETAMINOPHEN 325MG TAB Discontinued TAKE ONE TABLET BY MOUTH THREE TIMES A DAY NEEDED FOR PAIN CAUTION: DO NOT EXCEED 4000MG/DAY TOTAL OF ACETAMINOPHEN (APAP) FROM ALL MEDS 90 Jun 27, 2019 [id number] May 29, 2019 [facility] [place] [facility] HYDROCODONE 10MG/ACETAMINOPHEN 325MG TAB Discontinued TAKE ONE TABLET BY MOUTH THREE TIMES A DAY NEEDED FOR PAIN CAUTION: DO NOT EXCEED 4000MG/DAY TOTAL OF ACETAMINOPHEN (APAP) FROM ALL MEDS 90 May 08, 2019 [id number] Apr 08, 2019 [facility] [place] [facility] HYDROCODONE 10MG/ACETAMINOPHEN 325MG TAB Discontinued TAKE ONE TABLET BY MOUTH THREE TIMES A DAY NEEDED FOR PAIN CAUTION: DO NOT EXCEED 4000MG/DAY TOTAL OF ACETAMINOPHEN (APAP) FROM ALL MEDS 90 Mar 28, 2019 [id number] Feb 26, 2019 [facility]DEN [facility] [place] [facility] HYDROCODONE 10MG/ACETAMINOPHEN 325MG TAB Discontinued TAKE ONE TABLET BY MOUTH THREE TIMES A DAY NEEDED FOR PAIN CAUTION: DO NOT EXCEED 4000MG/DAY TOTAL OF ACETAMINOPHEN (APAP) FROM ALL MEDS 90 Feb 06, 2019 [id number] Jan 07, 2019 [facility] [place] HYDROCODONE 10MG/ACETAMINOPHEN 325MG TAB Discontinued TAKE ONE TABLET BY MOUTH THREE TIMES A DAY NEEDED FOR PAIN CAUTION: DO NOT EXCEED 4000MG/DAY TOTAL OF ACETAMINOPHEN (APAP) FROM ALL MEDS 90 Dec 05, 2018 [id number] November 05, 2018 [facility] [place] [facility] HYDROCODONE 10MG/ACETAMINOPHEN 325MG TAB Discontinued TAKE ONE TABLET BY MOUTH THREE TIMES A DAY NEEDED FOR PAIN CAUTION: DO NOT EXCEED 4000MG/DAY TOTAL OF ACETAMINOPHEN (APAP) FROM ALL MEDS 90 October 25, 2018 [id number] Sep 25, 2018 [facility] [place] [facility] HYDROCODONE 10MG/ACETAMINOPHEN 325MG TAB TAKE ONE TABLET (10/325MG) BY MOUTH THREE TIMES A DAY NEEDED FOR PAIN CAUTION: DO NOT EXCEED 4000MG/DAY TOTAL OF ACETAMINOPHEN (APAP) FROM ALL MEDS 90 November 16, 2019 [id number] October 18, 2019 [facility] METHOTREXATE NA 2.5MG TAB Active TAKE SEVEN TABLETS BY MOUTH EVERY WEEK October 17, 2020 [id number] November 04, 2019 [facility] METHOTREXATE NA 2.5MG TAB Discontinued TAKE SEVEN TABLETS BY MOUTH EVERY WEEK 90 May 09, 2020 [id number] Aug 16, 2019 NASH KULKARNI [facility] METHOTREXATE NA 2.5MG TAB Discontinued TAKE SEVEN TABLETS BY MOUTH EVERY WEEK 90 Aug 04, 2019 [id number] Feb 22, 2019 YOU GOMEZ [facility] [place] NORTRIPTYLINE HCL 10MG CAP Active TAKE 2 CAPSULES BY MO UTH AT BEDTIME NEEDED 120 Apr 02, 2020 [id number] Nov 20, 2019 [facility] [place] NORTRIPTYLINE HCL 10MG CAP Discontinued TAKE 2 CAPSUL ES BY MOUTH AT BEDTIME NEEDED 120 Mar 20, 2019 [id number] Jan 23, 2019 [facility] OMEPRAZOLE 20MG CAP,EC Active TAKE 1 CAPSULE BY MOUTH EVERY MORNING TO LOWER STOMACH ACID. TAKE 30 MINUTES PRIOR TO FOOD. 90 October 17, 2020 [id number] October 21, 2019 [facility] OMEPRAZOLE 20MG CAP,EC Discontinued TAKE 1 CAPSULE BY MOUTH EVERY MORNING TO LOWER STOMACH ACID. TAKE 30 MINUTES PRIOR TO FOOD. 90 Oct 02, 2019 [id number] Aug 02, 2019 [facility] [place] PREDNISONE 1MG TAB Discontinued TAKE THREE TABLETS B Y MOUTH ONCE A DAY FOR INFLAMMATION AND IMMUNE RESPONSE. TAKE WITH FOOD OR MILK. 270 Fe 2019 [id number] Apr 24, 2019 [facility] PREDNISONE 1MG TAB Discontinued TAKE FOUR TABLETS BY MOUTH ONCE A D AY 360 Apr 22, 2019 [id number] Jan 24, 2019 [facility]UE DAVIES [facility] [place] PREDNISONE 1MG TAB Discontinued TAKE FOUR TABLETS BY MOUTH ONCE A D AY 360 Dec 29, 2018 [id number] Oct 01, 2018 NASH KULKARNI V [facility] PREDNISONE 1MG TAB TAKE THREE TABLETS B Y MOUTH ONCE A DAY FOR INFLAMMATION AND IMMUNE RESPONSE. TAKE WITH FOOD OR MILK. 270 Ap r 2019 [id number] Jul 13, 2019 [facility] [place] PREDNISONE 5MG TAB Discontinued TAKE ONE TABLET BY MOUTH ONCE A DAY WITH FOOD 60 Aug 01, 2019 [id number] Sep 25, 2018 [facility] [place] [facility] ROPINIROLE HCL 1MG TAB Active TAKE ONE TABLET BY MOUTH AT BED TIME 90 October 17, 2020 [id number] Nov 25, 2019 [facility] ROPINIROLE HCL 1MG TAB Discontinued TAKE ONE TABLET BY MOUTH AT BED TIME 90 Dec 05, 2019 [id number] Sep 03, 2019 KRYSTAL DEJESUS [facility] [place] ROPINIROLE HCL 1MG TAB Discontinued TAKE ONE TABLET BY MOUTH AT BED TIME 90 Dec 13, 2018 [id number] Sep 12, 2018 KOURTNEY DANIELSON [facility] [place] [facility] TAMSULOSIN HCL 0.4MG CAP Active: Susp TAKE 1 CAPSULE BY MOUTH ONCE A DAY FOR PROSTATE. TAKE AT THE SAME TIME EACH DAY WITH FOOD. 90 Sep 30 1 [id number] Dec 20, 2019 KOURTNEY DANIELSON [facility] [place] TAMSULOSIN HCL 0.4MG CAP Discontinued TAKE 1 CAPSULE BY MOUTH ONCE A DAY FOR PROSTATE. TAKE AT THE SAME TIME EACH DAY WITH FOOD. 90 Sep 12 0 [id number] Jun 24, 2019 LIS BRUCE [facility] [place] Problems (Conditions): All historical and current Section Date Range: From patient's date of to the date document was create d. This section includes a list of Problems (Conditions) know [place] to [place] for [place]. It includes both active and inacti ve problems (conditions). The data comes from all [place] treatment facilities. Problem Status Problem Code Date of Onset Date of Resolution Comm ent(s) Provider Source Abnormal radiologic density Active [id number] KOURTNEY HWANG [facility] [place] Allergic rhinitis Active [id number] MARIELADY [facility] [place] [facility] Anemia Active [id number] [facility] [place] [facility] Chest pain (SNOMED CT 00535520) Active 786.50 [facility] [place] [facility] Chondrocalcinosis Active [id number] JASONYOU [facility] [place] [facility] Chronic obstructive lung disease Active 23984680 [facility] [place] [facility] Coronary artery disease Active 65798757 Angella LINDSEY [facility] [place] [facility] Cough Active 74208355 LADY SALAZAR [place] Angella S [facility] [place] [facility] Cough (SNOMED CT 92826662) Active 786.2 KOURTNEY BARRON [facility] [place] [facility] Dysarthria (SNOMED CT 5030216) Active 784.51 M CORRINEKOURTNEY PARISI [facility] [place] [facility] Dyspnea (SNOMED CT 049715979) Active 786.09 OKURTNEY BARKSDALE [facility] [place] [facility] Eruption due to drug Active 63472153 Abdiaziz DANIELSON TORY [facility] [place] [facility] Gastroesophageal reflux disease Active 333483116 KOURTNEY DANIELSON [facility] [place] [facility] Hallux valgus AND bunion Active [id number] DEISY GERMAIN [facility] [place] [facility] Joint pain (SNOMED CT 24612551) Active 719.40 DEISY CONTRERAS [facility] [place] [facility] Joint swelling (SNOMED CT 141279842) Active 719.00 KOURTNEY DANIELSON [facility] [place] [facility] Knee pain Active [id number] JENNIFER LINDSEY [facility] [place] [facility] Muscle weakness (SNOMED CT 33029417) Active 728.87 KOURTNEY DANIELSON [facility] [place] [facility] Neuropathy Active [id number] KOURTNEY DANIELSON RN [facility] [place] Osteoarthritis Active 715.36 DYAN SERVIN [facility] [place] [facility] Parkinson's disease Active 60117639 ETHAN DANIELSON KAYLYN [facility] [place] [facility] Peripheral Neuropathy Active 356.9 DASARAJU,P URUSHOTHAMA V [facility] [place] [facility] Personal History of Exposure to Agent Levy Active V15.89 DEISY CONTRERAS [facility] [place] [facility] Polyp of colon (SNOMED CT 65414628) Active 211.3 KOURTNEY DANIELSON [facility] [place] [facility] Restless legs Active 22853690 PATRICK WHITE [facility] [place] Rheumatoid arthritis Active 02127871 Abdiaziz DANIELSON TORY [facility] [place] [facility] Screening, Malignancy Active V76.89 LISSETH TOLEDO [facility] [place] [facility] Sleep apnea Active 36475417 KOURTNEY DANIELSON RN [facility] [place] Synovial cyst of popliteal space (SNOMED CT 84808764) Active 727.51 KOURTNEY DANIELSON [facility] [place] [facility] Tobacco dependence in remission Active [id number] TARIQKOURTNEY SMITH [facility] [place] [facility] Tobacco use Active 143491781 JENNIFER LINDSEY [facility] [place] Tremor Active 25113259 JENNIFER LINDSEY K [facility] [place] [facility] Unresolved Active 09088830 JENNIFER LINDSEY [place] [facility] [place] Unresolved Active 11094529 JENNIFER LINDSEY [place] [facility] [place] Radiology Reports: +/- 30 days of the encounter No Data Provided for This Section Pathology Reports: +/- 30 days of the encounter No Data Provided for This Section Encounter Notes: All associated encounter notes This section contains the clinical notes associated to the Encounter. Date/Time Encounter Note(s) Provider Source Dec 02, 2019 10:06 AM TELEPHONE ENCOUNTER NOTE: LOCAL TITLE: MD-TELEPONE/SPECIALTY CARE NOTE. STANDARD TITLE: TELEPHONE ENCOUNTER NOTE DATE OF NOTE: DEC 02, 2019@10:06 ENTRY DATE: DEC 02, 2019@10:07:03 AUTHOR: JUWAN BOX EXP COSIGNER: URGENCY: STATUS: COMPLETED Specialty Care Telephone Call Called [place] to complete pre appt screening, no answer, left msg that labe have been ordered and need to be completed prior to appt and left clinic phone number. /sofya/ JUWAN BOX RN RN Signed: 12/02/2019 10:09 JUWAN BOX [facility]
--- OUTSIDE RECORDS SUMMARY | 2019-12-04 21:57 | XMS REPORT | Encounter Summary ---
Author Author Department of [facility] CARLOS sweeney Organization Department of [facility] Address [address] [place] [address] Phone Unavailable Care Team Providers Care Syrup Blender Name Role Phone TARIQKOURTNEY PCP Unavailable Insurance [...] PLAN G MEDICARE SUPPLEMENT Dec PLAN G [id number] [phone] CARLOS ROMANO PATIENT MEDICARE (WNR) MEDICARE (M) PART A Dec 16, 2014 PART A [id number] CARLOS ROMANO PATIENT MEDICARE (WNR) MEDICARE (M) PART B Dec 16, 2014 PART B [id number] CARLOS ROMANO PATIENT MEDICO DENTAL INSURANCE DENTAL VISIONHEARING Dec 16, 2014 DENTAL VISIONHEAR [id number] [phone] CARLOS ROMANO PATIENT Selected Encounter This section includes the information on record at VA for the Encounter. Date/Time Encounter Type Encounter Description Reason Provider Source Dec 03, 2019 04:12 PM Outpatient Encounter ADMIN PAT ACTIVTIES (MASNO NCT) [facility] [place] IHE Encounter Template Text not used by VA Assessments - Encounter Diagnoses No Data Provided for This Section Plan of Treatment: Future Appointments (+ 6 months) and Future Tests (+/- 45 day s) The Plan of Treatment section includes future care activities for the patient fr om all [facility] facilities. This section includes future appointments and fu ture orders which are active, pending or scheduled. Future Appointments This section includes appointments that were scheduled t o occur 6 months from the date of the Encounter, up to a maximum of 20 appointme nts. The data comes from all [facility]. Appointment Date/Time Appointment Type Appointment Facili ty Name Dec 04, 2019 10:45 AM AMBULATORY - [facility]INE [facility] Dec 10, 2019 01[facility]30 PM [facility] Jan 06, 2020 10:30 AM [facility] - [facility]IC[facility] Active, Pending, and Scheduled Orders This [...] the Encounter. The data comes from all [facility]. Test Date/Time Test Type Test Details Facility Name Dec 04, 2019 11:10 AM Laboratory - Chemistry Order ERYTHROCY TE SEDIMENTATION RATE 5 ML LAVENDER TOP BLOOD SP [facility] Dec 04, 2019 11:10 AM Laboratory - Chemistry Order IRON-TOTAL SS T GEL SERUM SP [facility] Dec 04, 2019 11:10 AM Laboratory - Chemistry Order IRON/TIBC SST GEL SERUM [facility] Surgical Procedures: All associated to the encounter No Data Provided for This Section Lab Results: +/- 30 days of the encounter This section includes the Chemistry and Hematology Lab R esults on record with [place] for the patient. Radiology Reports and Pathology Report s are provided separately, in subsequent sections. Lab Results This section contains the Chemistry/Hematology Results juan t were resulted 30 days before or 30 days after the date of the Encounter. Date/Time Source Result Type Result - Unit Interpretation Reference Range Comment Dec 04, 2019 11:10 AM [facility] FERRITIN Specimen Type: SERUM No comment entered. FERRITIN 6 ng/mL L 22-275 Dec 04, 2019 11:10 AM [facility] LIPID PROFILE(HDL,TRIG ,CHOL,LDL) Specimen Type: PLASMA No comment entered. CHOLESTEROL 75 mg/dL 0-200 TRIGS 38 mg/dL 0-150 HDL-CHOLESTEROL 34 mg/dL L >40 LDL (CALC) 33 mg/dL 0-99.9 Dec 04, 2019 11:10 AM [facility] TSH Specimen Type: SERUM No comment entered. TSH 1.51 uIU/mL 0.47-5.00 Dec 04, 2019 11:10 AM [facility] PROSTATIC SPECIFIC ANT IGEN(TOTAL) Specimen Type: SERUM No comment entered. PROSTATIC SPECIFIC ANTIGEN(TOTAL) 1.68 ng/mL 0-4 Dec 04, 2019 11:10 AM [facility] VITAMIN D (25-OH) Specimen Type: SERUM No comment entered. VITAMIN D (25-OH) 36.4 ng/mL 30.0-96.0 Dec 04, 2019 11:10 AM [facility] FOLATE Specimen Type: SERUM No comment entered. FOLATE >40.0 ng/mL H 7.0-20.0 Dec 04, 2019 11:10 AM [facility] VITAMIN B12 Specimen Type: SERUM No comment entered. VITAMIN B12 491 pg/mL 213-816 Dec 04, 2019 11:10 AM [facility] C-REACTIVE PROTEIN Specimen Type: SERUM No comment entered. C-REACTIVE PROTEIN 9.77 mg/dL H 0.0-0.5 Dec 04, 2019 11:10 AM [facility] COMPREHENSIVE METABOLI C PANEL Specimen Type: PLASMA [...] EGFR 73.2 Dec 04, 2019 11:10 AM [facility] CBC & DIFF Specimen Type: BLOOD Comment: PANIC VALUE CALLED AND READ BACK by Kourtney Danielson @ 7263 WBC 8.08 K/cmm 3.60-11.20 RBC 1.83 M/ul [...] Adverse Reactions (ADR s) on record with VA for the patient. The data comes from a [facility] treatment facilities. It does not list Allergies/ADRs that were removed or entered in error. Some allergies/ADRs may be reported in t he Immunization section. Allergen Event Date Event Type Reaction(s) Severity Source PANTOPRAZOLE Oct 01, 2018 Propensity to adverse reactions to drug (disorder) Eruption [facility], [facility] 15 [place] Jul 17, 2012 Propensity to adverse reactions to drug (disorder) Peripheral edema [facility] Medications: VA dispensed (-15 months) and Non-VA Documented (Obtained Outside A) Section Date Range: 1) prescriptions processed by a VA pharmacy in the last 15 m [facility], and 2) all medications recorded in the [place] medical record as "non-VA medic ations". Pharmacy terms refer to VA pharmacy's work on prescriptions. VA patient s are advised to take their medications as instructed by their health care team. The data comes from all [place] treatment facilities. Glossary of Pharmacy Terms:Active = A prescription that can be filled at the local [place] pharmacy.Active: On Hold = An active prescription that will not be filled until pharmacy resolves the issue.Active: Susp = An active prescription that is not scheduled to be filled yet.Clinic Order = A medication received during a visit to a [place] clinic or emergency department (currently not available).Discontinued [...] may be a prescription from either the [place] or other providers that was filled outside the [place]. Or, it may be an over the [...] FOR INHALATION ONCE 1 Nov 16, 2018 [id number] October 17, 2018 KOURTNEY DANIELSON [facility] ALBUTEROL SO4 90MCG/ACTUAT (CFC-F) INHL,ORAL,6.7GM Active INHALE 2 PUFFS BY ORAL INHALATION FOUR TIMES A DAY NEEDED - RINSE MOUTHPIECE FREQUENTLY TO PREVENT CLOGGING Apr 24, 2020 [id number] October 18, 2019 KOURTNEY DANIELSON [facility] ALBUTEROL SO4 90MCG/ACTUAT (CFC-F) INHL,ORAL,6.7GM Discontin ued INHALE 2 PUFFS BY ORAL INHALATION FOUR TIMES A DAY NEEDED - RINSE MOUTHPIECE FREQUENTLY TO PREVENT CLOGGING 2 Apr 24, 2020 [id number] Apr 24, [address] [facility] BUDESONIDE 160MCG/FORMOTEROL FUM 4.5MCG/SPRAY INHL,ORAL,10.2 GM Active INHALE 2 PUFFS BY ORAL INHALATION TWO TIMES A DAY FOR BREATHING. SHAKE WELL. RINSE MOUTH AND SPIT AFTER EACH USE. 2 Apr 24, 2020 [id number] October 17, 2019 KOURTNEY JOSHI [facility] CALCIUM 500MG (CA CARBONATE-1.25GM) TAB Active: Susp TAKE ONE TABLET BY MOUTH TWO TIMES A DAY 180 Nov 20, 2020 [id number] Jan 09, 2020 TARIQKOURTNEY SMITH [facility] CALCIUM 500MG (CA CARBONATE-1.25GM) TAB Discontinued TAKE ONE TABLET BY MOUTH TWO TIMES A DAY 180 Jan 08, 2020 [id number] October 21, 2019 KOURTNEY DANIELSON [facility] [place] CALCIUM 500MG (CA CARBONATE-1.25GM) TAB Discontinued TAKE ONE TABLET BY MOUTH TWO TIMES A DAY 180 Dec 29, 2018 [id number] Oct 01, 2018 [facility] CARBIDOPA 25MG/LEVODOPA 100MG TAB Active TAKE 2 TABLETS BY MOUTH FOUR TIMES A DAY FOR PARKINSON'S DISEASE. DO NOT TAKE WITH FOOD. 240 Nov 24, 2020 [id number] Nov 27, 2019 [facility] [place] CARBIDOPA 25MG/LEVODOPA 100MG TAB Discontinued TAKE T WO TABLETS BY MOUTH FIVE TIMES DAILY FOR PARKINSON'S DISEASE. DO NOT TAKE WITH FOOD. 600 Jul 02, 2020 [id number] Nov 19, 2019 [facility] [place] CARBIDOPA 25MG/LEVODOPA 100MG TAB Discontinued TAKE 2 TABLETS BY MOUTH FIVE TIMES DAILY FOR PARKINSON'S DISEASE. DO NOT TAKE WITH FOOD. 300 Jun 30, 2020 [id number] Jul 01, 2019 [facility] [place] CARBIDOPA 25MG/LEVODOPA 100MG TAB Discontinued TAKE 2 TABLETS BY MOUTH FOUR TIMES A DAY FOR PARKINSON'S DISEASE. DO NOT TAKE WITH FOOD. 240 Jun 24, 2020 [id number] Jun 26, 2019 [facility] [place] CARBIDOPA 25MG/LEVODOPA 100MG TAB Discontinued TAKE 2 TABLETS BY MOUTH FOUR TIMES A DAY FOR PARKINSON'S DISEASE. DO NOT TAKE WITH FOOD. 240 Dec 25, 2019 [id number] May 15, 2019 [facility] [place] CARBIDOPA 25MG/LEVODOPA 100MG TAB Discontinued TAKE 2 TABLETS BY MOUTH FOUR TIMES A DAY FOR PARKINSON'S DISEASE. DO NOT TAKE WITH FOOD. 240 Jun 07, 2019 [id number] Nov 18, 2018 ALLEGRA HOWE [facility] [place] CHOLECALCIFEROL 25MCG (1,000UNIT) TAB Active: Susp TA KE TWO TABLETS BY MOUTH ONCE A DAY FOR VITAMIN D DEFICIENCY 200 Nov 20, 2020 [id number] Dec 172019 TARIQKOURTNEYDUKE [facility] CHOLECALCIFEROL 25MCG (1,000UNIT) TAB Discontinued TA KE TWO TABLETS BY MOUTH ONCE A DAY FOR VITAMIN D DEFICIENCY 200 Dec 25, 2019 [id number] October [facility]RAYDEN [facility] [place] CHOLECALCIFEROL 25MCG (1,000UNIT) TAB Discontinued TA KE TWO TABLETS BY MOUTH ONCE A DAY FOR VITAMIN D DEFICIENCY 200 Oct 10, 2018 [id number] Aug 172018 [facility] CLOPIDOGREL BISULFATE 75MG TAB Active: Susp TAKE ONE TABLET BY MOUTH ONCE A DAY TO PREVENT BLOOD CLOTS 90 Apr 24, 2020 [id number] Dec 19, 2019 KOURTNEY DANIELSON [facility] CLOPIDOGREL BISULFATE 75MG TAB Discontinued TAKE ONE TABLET BY MOUTH ONCE A DAY TO PREVENT BLOOD CLOTS 90 Jun 01, 2019 [id number] Mar 13, 2019 [facility] [place] DIPHENHYDRAMINE HCL 25MG CAP Non-VA TAKE 1 CAPSULE BY MOUTH EVERY 6 HOURS NEEDED Non-VA Documented by: KOURTNEY DANIELSON nted at: [facility] FLUDROCORTISONE ACETATE 0.1MG TAB Active TAKE ONE TABLET BY M OUTH ONCE A DAY 90 Nov 19, 2020 [id number] Nov 20, 2019 [facility] [place] FOLIC ACID 1MG TAB Non- VA TAKE ONE TABLET BY MOUTH ONCE A DAY N on-VA Documented by: KOURTNEY DANIELSON at: [facility] GABAPENTIN 300MG CAP Active TAKE 1 CAPSULE BY M OUTH 5 TIMES A DAY FOR PAIN AND TREMORS. 300 October 17, 2020 [id number] October 18, 2019 [facility] GABAPENTIN 300MG CAP Discontinued TAKE ONE CAPSULE BY MOUTH FOUR TIMES A DAY FOR PAIN AND TREMORS. 240 Jan 08, 2020 [id number] Oct 14, 2019 TARIQ,[facility] [place] GABAPENTIN 300MG CAP Discontinued TAKE ONE CAPSULE BY MOUTH FOUR TIMES A DAY FOR PAIN AND TREMORS. 240 Mar 08, 2019 [id number] Jan 07, 2019 TARIQ,[facility] [place] HYDROCODONE 10MG/ACETAMINOPHEN 325MG TAB Active TAKE ONE TABLET (10/325MG) BY MOUTH THREE TIMES A DAY NEEDED FOR PAIN CAUTION: DO NOT EXCEED 4000MG/DAY TOTAL OF ACETAMINOPHEN (APAP) FROM ALL MEDS 90 Dec 20, 2019 [id number] Nov 21, 2019 [facility] HYDROCODONE 10MG/ACETAMINOPHEN 325MG TAB Discontinued TAKE ONE TABLET (10/325MG) BY MOUTH THREE TIMES A DAY NEEDED FOR PAIN CAUTION: DO NOT EXCEED 4000MG/DAY TOTAL OF ACETAMINOPHEN (APAP) FROM ALL MEDS 90 Sep 17, 2 020 [id number] Sep 04, 2019 TARIQ,[facility] [place] HYDROCODONE 10MG/ACETAMINOPHEN 325MG TAB Discontinued TAKE ONE TABLET BY MOUTH THREE TIMES A DAY NEEDED FOR PAIN CAUTION: DO NOT EXCEED 4000MG/DAY TOTAL OF ACETAMINOPHEN (APAP) FROM ALL MEDS 90 Jul 26, 2019 [id number] Jun 26, 2019 [facility] [place] HYDROCODONE 10MG/ACETAMINOPHEN 325MG TAB Discontinued TAKE ONE TABLET BY MOUTH THREE TIMES A DAY NEEDED FOR PAIN CAUTION: DO NOT EXCEED 4000MG/DAY TOTAL OF ACETAMINOPHEN (APAP) FROM ALL MEDS 90 Jun 27, 2019 [id number] May 29, 2019 [facility] [place] HYDROCODONE 10MG/ACETAMINOPHEN 325MG TAB Discontinued TAKE ONE TABLET BY MOUTH THREE TIMES A DAY NEEDED FOR PAIN CAUTION: DO NOT EXCEED 4000MG/DAY TOTAL OF ACETAMINOPHEN (APAP) FROM ALL MEDS 90 May 08, 2019 [id number] Apr 08, 2019 TARIQ,[facility] [place] HYDROCODONE 10MG/ACETAMINOPHEN 325MG TAB Discontinued TAKE ONE TABLET BY MOUTH THREE TIMES A DAY NEEDED FOR PAIN CAUTION: DO NOT EXCEED 4000MG/DAY TOTAL OF ACETAMINOPHEN (APAP) FROM ALL MEDS 90 Mar 28, 2019 [id number] Feb 26, 2019 [facility] [place] HYDROCODONE 10MG/ACETAMINOPHEN 325MG TAB Discontinued TAKE ONE TABLET BY MOUTH THREE TIMES A DAY NEEDED FOR PAIN CAUTION: DO NOT EXCEED 4000MG/DAY TOTAL OF ACETAMINOPHEN (APAP) FROM ALL MEDS 90 Feb 06, 2019 [id number] Jan 07, 2019 TARIQ,[facility] [place] HYDROCODONE 10MG/ACETAMINOPHEN 325MG TAB Discontinued TAKE ONE TABLET BY MOUTH THREE TIMES A DAY NEEDED FOR PAIN CAUTION: DO NOT EXCEED 4000MG/DAY TOTAL OF ACETAMINOPHEN (APAP) FROM ALL MEDS 90 Dec 05, 2018 [id number] November 05, 2018 [facility] [place] HYDROCODONE 10MG/ACETAMINOPHEN 325MG TAB Discontinued TAKE ONE TABLET BY MOUTH THREE TIMES A DAY NEEDED FOR PAIN CAUTION: DO NOT EXCEED 4000MG/DAY TOTAL OF ACETAMINOPHEN (APAP) FROM ALL MEDS 90 October 25, 2018 [id number] Sep 25, 2018 [facility] [place] HYDROCODONE 10MG/ACETAMINOPHEN 325MG TAB TAKE ONE TABLET (10/325MG) BY MOUTH THREE TIMES A DAY NEEDED FOR PAIN CAUTION: DO NOT EXCEED 4000MG/DAY TOTAL OF ACETAMINOPHEN (APAP) FROM ALL MEDS 90 November 16, 2019 [id number] October 18, 2019 [facility] METHOTREXATE NA 2.5MG TAB Active TAKE SEVEN TABLETS BY MOUTH EVERY WEEK October 17, 2020 [id number] November 04, 2019 [facility] METHOTREXATE NA 2.5MG TAB Discontinued TAKE SEVEN TABLETS BY MOUTH EVERY WEEK May 09, 2020 [id number] Aug 16, 2019 NASH KULKARNI [facility] METHOTREXATE NA 2.5MG TAB Discontinued TAKE SEVEN TABLETS BY MOUTH EVERY WEEK 90 Aug 04, 2019 [id number] Feb 22, 2019 YOU GOMEZ [facility] [place] NORTRIPTYLINE HCL 10MG CAP Active TAKE 2 CAPSULES BY MO UTH AT BEDTIME NEEDED 120 Apr 02, 2020 [id number] Nov 20, 2019 [facility] [place] NORTRIPTYLINE HCL 10MG CAP Discontinued TAKE 2 CAPSUL ES BY MOUTH AT BEDTIME NEEDED 120 Mar 20, 2019 [id number] Jan 23, 2019 [facility] OMEPRAZOLE 20MG CAP,EC Active TAKE 1 CAPSULE BY MOUTH EVERY MORNING TO LOWER STOMACH ACID. TAKE 30 MINUTES PRIOR TO FOOD. 90 October 17, 2020 [id number] October 21, 2019 [facility] OMEPRAZOLE 20MG CAP,EC Discontinued TAKE 1 CAPSULE BY MOUTH EVERY MORNING TO LOWER STOMACH ACID. TAKE 30 MINUTES PRIOR TO FOOD. 90 Oct 02, 2019 [id number] Aug 02, 2019 [facility] [place] PREDNISONE 1MG TAB Discontinued TAKE THREE TABLETS B Y MOUTH ONCE A DAY FOR INFLAMMATION AND IMMUNE RESPONSE. TAKE WITH FOOD OR MILK. 270 Fe 2019 [id number] Apr 24, 2019 [facility] PREDNISONE 1MG TAB Discontinued TAKE FOUR TABLETS BY MOUTH ONCE A D AY 360 Apr 22, 2019 [id number] Jan 24, [address] [facility] [place] PREDNISONE 1MG TAB Discontinued TAKE FOUR TABLETS BY MOUTH ONCE A D AY 360 Dec 29, 2018 [id number] Oct 01, 2018 NASH KULKARNI V [facility] PREDNISONE 1MG TAB TAKE THREE TABLETS B Y MOUTH ONCE A DAY FOR INFLAMMATION AND IMMUNE RESPONSE. TAKE WITH FOOD OR MILK. 270 Ap r 2019 [id number] Jul 13, 2019 [facility] [place] PREDNISONE 5MG TAB Discontinued TAKE ONE TABLET BY MOUTH ONCE A DAY WITH FOOD 60 Aug 01, 2019 [id number] Sep 25, 2018 [facility] [place] ROPINIROLE HCL 1MG TAB Active TAKE ONE TABLET BY MOUTH AT BED TIME 90 October 17, 2020 [id number] Nov 25, 2019 [facility] ROPINIROLE HCL 1MG TAB Discontinued TAKE ONE TABLET BY MOUTH AT BED TIME 90 Dec 05, 2019 [id number] Sep 03, 2019 KRYSTAL DEJESUS [facility] [place] ROPINIROLE HCL 1MG TAB Discontinued TAKE ONE TABLET BY MOUTH AT BED TIME 90 Dec 13, 2018 [id number] Sep 12, 2018 [facility] [place] TAMSULOSIN HCL 0.4MG CAP Active: Susp TAKE 1 CAPSULE BY MOUTH ONCE A DAY FOR PROSTATE. TAKE AT THE SAME TIME EACH DAY WITH FOOD. 90 Sep 30 1 [id number] Dec 20, 2019 KOURTNEY DANIELSON [facility] [place] TAMSULOSIN HCL 0.4MG CAP Discontinued TAKE 1 CAPSULE BY MOUTH ONCE A DAY FOR PROSTATE. TAKE AT THE SAME TIME EACH DAY WITH FOOD. 90 Sep 12 0 [id number] Jun 24, 2019 LIS BRUCE [facility] [place] Problems (Conditions): All historical and current Section Date Range: From patient's date of to the date document was create d. This section includes a list of Problems (Conditions) know n to [facility] for the patient. It includes both active and inacti ve problems (conditions). The data comes from all [place] treatment facilities. Problem Status Problem Code Date of Onset Date of Resolution Comm ent(s) Provider Source Abnormal radiologic density Active [id number] [facility] [place] Allergic rhinitis Active 43748962 MARIELADY [facility] [place] Anemia Active [id number] [facility] [place] Chest pain (SNOMED CT 89121479) Active 786.50 [facility]RAYDEN [facility] [place] Chondrocalcinosis Active 078580955 JASONYOU [facility] [place] Chronic obstructive lung disease Active 11806728 TARIQ,[facility] [place] Coronary artery disease Active 28190261 Angella LINDSEY [facility] [place] Cough Active 48131750 LADY SALAZAR [place] Angella Love [facility] [place] Cough (SNOMED CT 32969359) Active 786.2 [facility] [place] Dysarthria (SNOMED CT 4850900) Active 784.51 M JACOBOBRAYDEN [facility] [place] Dyspnea (SNOMED CT 809585660) Active 786.09 KOURTNEY BARKSDALE [facility] [place] Eruption due to drug Active 58463976 Abdiaziz DANIELSON TORY [facility] [place] Gastroesophageal reflux disease Active [id number] KOURTNEY DANIELSON [facility] [place] Hallux valgus AND bunion Active 002531921 DEISY GERMAIN [facility] [place] Joint pain (SNOMED CT 73666298) Active 719.40 DEISY CONTRERAS [facility] [place] Joint swelling (SNOMED CT 406084335) Active 719.00 KOURTNEY DANIELSON [facility] [place] Knee pain Active 63031189 JENNIFER LINDSEY [facility] [place] Muscle weakness (SNOMED CT 09455225) Active 728.87 KOURTNEY DANIELSON [facility] [place] Neuropathy Active 412762292 KOURTNEY DANIELSON RN [facility] [place] Osteoarthritis Active 715.36 DYAN SERVIN [facility] [place] Parkinson's disease Active 17856001 TARIQETHAN PATIÑO [facility] [place] Peripheral Neuropathy Active 356.9 DASARAJU,P URUSHOTHAMA V [facility] [place] Personal History of Exposure to Agent [place] Active V15.89 DEISY CONTRERAS [facility] [place] Polyp of colon (SNOMED CT 54430223) Active 211.3 TARIQKOURTNEY SMITH [facility] [place] Restless legs Active 21950587 PATRICK WHITE [facility] [place] Rheumatoid arthritis Active 88802553 Abdiaziz DANIELSON TORY [facility] [place] Screening, Malignancy Active V76.89 LISSETH TOLEDO [facility] [place] Sleep apnea Active 42991605 KOURTNEY DANIELSON RN [facility] [place] Synovial cyst of popliteal space (SNOMED CT 36805966) Active 727.51 KOURTNEY DANIELSON [facility] [place] Tobacco dependence in remission Active 070428620 TARIQKOURTNEY [facility] [place] Tobacco use Active 023629815 JENNIFER LINDSEY [facility] [place] Tremor Active 24207920 JENNIFER LINDSEY S [facility] [place] Unresolved Active 23490982 JENNIFER LINDSEY N [place] [facility] [place] Unresolved Active 92427934 JENNIFER LINDSEY [facility] [place] Radiology Reports: +/- 30 days of the encounter No Data Provided for This Section Pathology Reports: +/- 30 days of the encounter No Data Provided for This Section Encounter Notes: All associated encounter notes This section contains the clinical notes associated to the Encounter. Date/Time Encounter Note(s) Provider Source Dec 03, 2019 04:12 PM ADMINISTRATIVE NOTE: LOCAL TITLE: EK-ADMINISTRATIVE COVID-19 STANDARD TITLE: ADMINISTRATIVE NOTE DATE OF NOTE: DEC 03, 2019@16:12 ENTRY DATE: DEC 03, 2019@16:12:11 AUTHOR: MARTIN SHULTZ COSIGNER: URGENCY: STATUS: COMPLETED Coronavirus Disease 2019 [...] diarrhea, nausea or vomiting. The patient reports new onset of loss of smell. Comment: has parkinson and talked with his over yr ago and it is a sympton of parkinsons Result: Screen is negative. /sofya/ MARTIN SHULTZ diploma medical assistant Signed: 12/03/2019 16:16 MARTIN SHULTZ [facility] [place]
--- OUTSIDE RECORDS SUMMARY | 2019-12-04 21:57 | XMS REPORT | Encounter Summary ---
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 Date/Time Encounter Type Encounter Description Reason Provider Source Dec 04, 2019 05:04 PM Outpatient Encounter TELEPHONE PRIMARY CAR E ICD-10-CM D64.9 Anemia, unspecified with Provider Comments: Anemia (SNOMED CT 487961101) KOURTNEY DANIELSON [facility] IHE Encounter Template Text not used by PA Assessments - Encounter Diagnoses This section includes the primary and secondary diag noses documented for the Encounter. Date/Time Primary/Secondary Diagnosis Diagnosis Name Provider Source Dec 04, 2019 05:04 PM PRIMARY Anemia, unspecified BRAYDEN DANIELSON [facility] Plan of Treatment: Future Appointments (+ 6 [...] appointme nts. The data comes from all PA treatment facilities. Appointment Date/Time Appointment Type Appointment Facili ty Name Dec 10, 2019 01:30 PM AMBULATORY - MEDICINE [facility] Jan 06, 2020 10:30 AM AMBULATORY - MEDICINE [facility] Active, Pending, and Scheduled Orders [...] the Encounter. The data comes from all PA treatment facilities. Test Date/Time Test Type Test Details Facility Name Dec 04, 2019 11:10 AM Laboratory - Chemistry Order ERYTHROCY TE SEDIMENTATION RATE 5 ML LAVENDER TOP BLOOD SP [facility] Dec 04, 2019 11:10 AM Laboratory - Chemistry Order IRON-TOTAL SS T GEL SERUM SP BLUE [facility] Dec 04, 2019 11:10 AM Laboratory - Chemistry Order IRON/TIBC SST GEL SERUM SP BLUE [facility] Surgical Procedures: All associated to the encounter No Data Provided for This Section Lab Results: +/- 30 days of the encounter This section includes the Chemistry and Hematology Lab R esults on record with PA for the patient. Radiology Reports and Pathology Report s are provided separately, in subsequent sections. Lab Results This section contains the Chemistry/Hematology Results juan t were resulted 30 days before or 30 days after the date of the Encounter. Date/Time Source Result Type Result - Unit Interpretation Reference Range Comment Dec 04, 2019 11:10 AM [facility] FERRITIN Specimen Type: SERUM No comment entered. FERRITIN 6 ng/mL L 22-275 Dec 04, 2019 11:10 AM [facility] LIPID PROFILE(HDL,TRIG ,CHOL,LDL) Specimen Type: PLASMA No comment entered. CHOLESTEROL 75 mg/dL 0-200 TRIGS 38 mg/dL 0-150 HDL-CHOLESTEROL 34 mg/dL L >40 LDL (CALC) 33 mg/dL 0-99.9 Dec 04, 2019 11:10 AM [facility] TSH Specimen Type: SERUM No comment entered. TSH 1.51 uIU/mL 0.47-5.00 Dec 04, 2019 11:10 AM [facility] PROSTATIC SPECIFIC ANT IGEN(TOTAL) Specimen Type: SERUM No comment entered. PROSTATIC SPECIFIC ANTIGEN(TOTAL) 1.68 ng/mL 0-4 Dec 04, 2019 11:10 AM [facility] VITAMIN D (25-OH) Specimen Type: SERUM No comment entered. VITAMIN D (25-OH) 36.4 ng/mL 30.0-96.0 Dec 04, 2019 11:10 AM [facility] FOLATE Specimen Type: SERUM No comment entered. FOLATE >40.0 ng/mL H 7.0-20.0 Dec 04, 2019 11:10 AM [facility] VITAMIN B12 Specimen Type: SERUM No comment entered. VITAMIN B12 491 pg/mL 213-816 Dec 04, 2019 11:10 AM [facility] C-REACTIVE PROTEIN Specimen Type: SERUM No comment entered. C-REACTIVE PROTEIN 9.77 mg/dL H 0.0-0.5 Dec 04, 2019 11:10 AM [facility] COMPREHENSIVE METABOLI C PANEL Specimen Type: [...] Dec 04, 2019 11:10 AM [facility] CBC & DIFF Specimen Type: BLOOD Comment: PANIC VALUE CALLED AND READ BACK by Kourtney Danielson @ 6691 WBC 8.08 K/cmm 3.60-11.20 RBC 1.83 M/ul [...] Use (All prior to enco unter date) This section includes the most current, and the historical, smoking and tobacco- related health factors from the PA facility where the Encounter took place. Current Smoking Status This section includes the most current smoking, or tobacco -related health factor, from the PA facility where the Encounter took place. Date/Time Current Smoking Status Comment Facility October 17, 2018 05:26 PM VA-TOBACCO QUIT 1 TO < 5 YRS [facility] Tobacco Use History This section includes a history of the smoking, or tobacco -related health factors, that were collected on or before the date of the Encoun ter. The data comes from the PA facility where the Encounter took place. Date/Time Smoking Status/Tobacco Use Comment Facil ity October 17, 2018 05:26 PM VA-TOBACCO QUIT 1 TO < 5 YRS [facility] Nov 26, 2017 01:35 PM QUIT TOBACCO IN THE LAST 12 MONTHS F [facility] Nov 26, 2017 01:35 PM TOBACCO CESSATION REFERRAL DECLINED [facility] Nov 26, 2017 01:35 PM TOBACCO MEDS OFFERED BUT DECLINED FO RT [facility] Nov 26, 2017 01:35 PM TOBACCO USER OFFERED [facility]NOTE 3] Feb 27, 2017 12:58 PM QUIT TOBACCO IN THE LAST 12 MONTHS F [facility] Feb 27, 2017 12:58 PM TOBACCO CESSATION REFERRAL DECLINED [facility] Feb 27, 2017 12:58 PM TOBACCO MEDS OFFERED BUT DECLINED FO RT [facility] Feb 27, 2017 12:58 PM TOBACCO USER OFFERED [facility][NOTE 3] May 02, 2016 09:04 AM CURRENT NON-TOBACCO USER [facility] Sep 29, 2015 07:48 AM CURRENT TOBACCO USER [facility] Sep 29, 2015 07:48 AM TOBACCO OFFERED STOP SMOKING [facility] Mar 19, 2015 07:54 AM CURRENT TOBACCO USER [facility] Mar 19, 2015 07:54 AM TOBACCO OFFERED STOP SMOKING [facility] Jan 02, 2014 08:44 AM CURRENT NON-TOBACCO USER [facility] Jul 30, 2013 10:01 AM CURRENT TOBACCO USER [facility] Jul 17, 2012 11:09 AM CURRENT TOBACCO USER [facility] Advance Directives: All historical and current No Data Provided for This Section Allergies and Adverse Reactions (ADRs): All historical and current Section Date Range: From patient's date of to the date document was create d. This section includes Allergies and Adverse Reactions (ADR s) on record with VA for the patient. The data comes from a [facility] treatment facilities. It does not list Allergies/ADRs that were removed or entered in error. Some allergies/ADRs may be reported in t he Immunization section. Allergen Event Date Event Type Reaction(s) Severity Source PANTOPRAZOLE Oct 01, 2018 Propensity to adverse reactions to drug (disorder) Eruption [facility] 15 PENICILL[place] Jul 17, 2012 Propensity to adverse reactions to drug (disorder) Peripheral edema [facility] 15 Medications: VA dispensed (-15 months) and Non-VA Documented (Obtained Outside V A) Section Date Range: 1) prescriptions processed by a VA pharmacy in the last 15 m [facility], and 2) all medications recorded in the [...] FOR INHALATION ONCE 1 Nov 16, 2018 [id number] October 17, 2018 KOURTNEY DANIELSON [facility] ALBUTEROL SO4 90MCG/ACTUAT (CFC-F) INHL,ORAL,6.7GM Active INHALE 2 PUFFS BY ORAL INHALATION FOUR TIMES A DAY NEEDED - RINSE MOUTHPIECE FREQUENTLY TO PREVENT CLOGGING Apr 24, 2020 [id number] October 18, 2019 KOURTNEY DANIELSON [facility] ALBUTEROL SO4 90MCG/ACTUAT (CFC-F) INHL,ORAL,6.7GM Discontin ued INHALE 2 PUFFS BY ORAL INHALATION FOUR TIMES A DAY NEEDED - RINSE MOUTHPIECE FREQUENTLY TO PREVENT CLOGGING 2 Apr 24, 2020 [id number] Apr 24, 2019 KOURTNEY DANIELSON ORT [facility] BUDESONIDE 160MCG/FORMOTEROL FUM 4.5MCG/SPRAY INHL,ORAL,10.2 GM Active INHALE 2 PUFFS BY ORAL INHALATION TWO TIMES A DAY FOR BREATHING. SHAKE WELL. RINSE MOUTH AND SPIT AFTER EACH USE. 2 Apr 24, 2020 [id number] October 17, 2019 KOURTNEY JOSHI [facility] CALCIUM 500MG (CA CARBONATE-1.25GM) TAB Active: Susp TAKE ONE TABLET BY MOUTH TWO TIMES A DAY 180 Nov 20, 2020 [id number] Jan 09, 2020 KOURTNEY DANIELSON [facility] CALCIUM 500MG (CA CARBONATE-1.25GM) TAB Discontinued TAKE ONE TABLET BY MOUTH TWO TIMES A DAY 180 Jan 08, 2020 [id number] October 21, 2019 KOURTNEY DANIELSON [facility] [place] CALCIUM 500MG (CA CARBONATE-1.25GM) TAB Discontinued TAKE ONE TABLET BY MOUTH TWO TIMES A DAY 180 Dec 29, 2018 [id number] Oct 01, 2018 [facility]KARNI [facility] CARBIDOPA 25MG/LEVODOPA 100MG TAB Active TAKE 2 TABLETS BY MOUTH FOUR TIMES A DAY FOR PARKINSON'S DISEASE. DO NOT TAKE WITH FOOD. 240 Nov 24, 2020 [id number] Nov 27, 2019 [facility] [place] CARBIDOPA 25MG/LEVODOPA 100MG TAB Discontinued TAKE T WO TABLETS BY MOUTH FIVE TIMES DAILY FOR PARKINSON'S DISEASE. DO NOT TAKE WITH FOOD. 600 Jul 02, 2020 [id number] Nov 19, 2019 [facility] [place] CARBIDOPA 25MG/LEVODOPA 100MG TAB Discontinued TAKE 2 TABLETS BY MOUTH FIVE TIMES DAILY FOR PARKINSON'S DISEASE. DO NOT TAKE WITH FOOD. 300 Jun 30, 2020 [id number] Jul 01, 2019 [facility] [place] DIV CARBIDOPA 25MG/LEVODOPA 100MG TAB Discontinued TAKE 2 TABLETS BY MOUTH FOUR TIMES A DAY FOR PARKINSON'S DISEASE. DO NOT TAKE WITH FOOD. 240 Jun 24, 2020 [id number] Jun 26, 2019 [facility] [place] DIV CARBIDOPA 25MG/LEVODOPA 100MG TAB Discontinued TAKE 2 TABLETS BY MOUTH FOUR TIMES A DAY FOR PARKINSON'S DISEASE. DO NOT TAKE WITH FOOD. 240 Dec 25, 2019 [id number] May 15, 2019 [facility] [place] CARBIDOPA 25MG/LEVODOPA 100MG TAB Discontinued TAKE 2 TABLETS BY MOUTH FOUR TIMES A DAY FOR PARKINSON'S DISEASE. DO NOT TAKE WITH FOOD. 240 Jun 07, 2019 [id number] Nov 18, [address] [facility] [place] DIV CHOLECALCIFEROL 25MCG (1,000UNIT) TAB Active: Susp TA KE TWO TABLETS BY MOUTH ONCE A DAY FOR VITAMIN D DEFICIENCY 200 Nov 20, [id number] Dec [address] [facility] CHOLECALCIFEROL 25MCG (1,000UNIT) TAB Discontinued TA KE TWO TABLETS BY MOUTH ONCE A DAY FOR VITAMIN D DEFICIENCY 200 Dec 25, [id number] [facility] [place] CHOLECALCIFEROL 25MCG (1,000UNIT) TAB Discontinued TA KE TWO TABLETS BY MOUTH ONCE A DAY FOR VITAMIN D DEFICIENCY 200 Oct 10, [id number] [facility] CLOPIDOGREL BISULFATE 75MG TAB Active: Susp TAKE ONE TABLET BY MOUTH ONCE A DAY TO PREVENT BLOOD CLOTS 90 Apr 24, 2020 [id number] Dec 19, 2019 [facility] CLOPIDOGREL BISULFATE 75MG TAB Discontinued TAKE ONE TABLET BY MOUTH ONCE A DAY TO PREVENT BLOOD CLOTS 90 Jun 01, 2019 [id number] Mar 13, 2019 [facility] [place] DIPHENHYDRAMINE HCL 25MG CAP Non-VA TAKE 1 CAPSULE BY MOUTH EVERY 6 HOURS NEEDED Non-VA Documented by: KOURTNEY DANIELSON nted at: [facility] FLUDROCORTISONE ACETATE 0.1MG TAB Active TAKE ONE TABLET BY M OUTH ONCE A DAY 90 Nov 19, 2020 [id number] Nov 20, 2019 [facility] [place] FOLIC ACID 1MG TAB Non- VA TAKE ONE TABLET BY MOUTH ONCE A DAY N on-VA Documented by: KOURTNEY DANIELSON nted at: [facility] GABAPENTIN 300MG CAP Active TAKE 1 CAPSULE BY M OUTH 5 TIMES A DAY FOR PAIN AND TREMORS. 300 October 17, 2020 [id number] October 18, 2019 KOURTNEY DANIELSON [facility] GABAPENTIN 300MG CAP Discontinued TAKE ONE CAPSULE BY MOUTH FOUR TIMES A DAY FOR PAIN AND TREMORS. 240 Jan 08, 2020 [id number] Oct 14, 2019 [facility] [place] [facility] GABAPENTIN 300MG CAP Discontinued TAKE ONE CAPSULE BY MOUTH FOUR TIMES A DAY FOR PAIN AND TREMORS. 240 Mar 08, 2019 [id number] Jan 07, 2019 [facility] [place] HYDROCODONE 10MG/ACETAMINOPHEN 325MG TAB Active TAKE ONE TABLET (10/325MG) BY MOUTH THREE TIMES A DAY NEEDED FOR PAIN CAUTION: DO NOT EXCEED 4000MG/DAY TOTAL OF ACETAMINOPHEN (APAP) FROM ALL MEDS 90 Dec 20, 2019 [id number] Nov 21, 2019 [facility] HYDROCODONE 10MG/ACETAMINOPHEN 325MG TAB Discontinued TAKE ONE TABLET (10/325MG) BY MOUTH THREE TIMES A DAY NEEDED FOR PAIN CAUTION: DO NOT EXCEED 4000MG/DAY TOTAL OF ACETAMINOPHEN (APAP) FROM ALL MEDS 90 Sep 17, 2 020 [id number] Sep 04, [address] [facility] [place] HYDROCODONE 10MG/ACETAMINOPHEN 325MG TAB Discontinued TAKE ONE TABLET BY MOUTH THREE TIMES A DAY NEEDED FOR PAIN CAUTION: DO NOT EXCEED 4000MG/DAY TOTAL OF ACETAMINOPHEN (APAP) FROM ALL MEDS 90 Jul 26, 2019 [id number] Jun 26, 2019 [facility] [place] HYDROCODONE 10MG/ACETAMINOPHEN 325MG TAB Discontinued TAKE ONE TABLET BY MOUTH THREE TIMES A DAY NEEDED FOR PAIN CAUTION: DO NOT EXCEED 4000MG/DAY TOTAL OF ACETAMINOPHEN (APAP) FROM ALL MEDS 90 Jun 27, 2019 [id number] May 29, 2019 [facility] [place] HYDROCODONE 10MG/ACETAMINOPHEN 325MG TAB Discontinued TAKE ONE TABLET BY MOUTH THREE TIMES A DAY NEEDED FOR PAIN CAUTION: DO NOT EXCEED 4000MG/DAY TOTAL OF ACETAMINOPHEN (APAP) FROM ALL MEDS 90 May 08, 2019 [id number] Apr 08, 2019 [facility] [place] HYDROCODONE 10MG/ACETAMINOPHEN 325MG TAB Discontinued TAKE ONE TABLET BY MOUTH THREE TIMES A DAY NEEDED FOR PAIN CAUTION: DO NOT EXCEED 4000MG/DAY TOTAL OF ACETAMINOPHEN (APAP) FROM ALL MEDS 90 Mar 28, 2019 [id number] Feb 26, 2019 [facility] [place] HYDROCODONE 10MG/ACETAMINOPHEN 325MG TAB Discontinued TAKE ONE TABLET BY MOUTH THREE TIMES A DAY NEEDED FOR PAIN CAUTION: DO NOT EXCEED 4000MG/DAY TOTAL OF ACETAMINOPHEN (APAP) FROM ALL MEDS 90 Feb 06, 2019 [id number] Jan 07, 2019 [facility] [place] HYDROCODONE 10MG/ACETAMINOPHEN 325MG TAB Discontinued TAKE ONE TABLET BY MOUTH THREE TIMES A DAY NEEDED FOR PAIN CAUTION: DO NOT EXCEED 4000MG/DAY TOTAL OF ACETAMINOPHEN (APAP) FROM ALL MEDS 90 Dec 05, 2018 [id number] November 05, 2018 [facility] [place] HYDROCODONE 10MG/ACETAMINOPHEN 325MG TAB Discontinued TAKE ONE TABLET BY MOUTH THREE TIMES A DAY NEEDED FOR PAIN CAUTION: DO NOT EXCEED 4000MG/DAY TOTAL OF ACETAMINOPHEN (APAP) FROM ALL MEDS 90 October 25, 2018 [id number] Sep 25, 2018 [facility] [place] HYDROCODONE 10MG/ACETAMINOPHEN 325MG TAB TAKE ONE TABLET (10/325MG) BY MOUTH THREE TIMES A DAY NEEDED FOR PAIN CAUTION: DO NOT EXCEED 4000MG/DAY TOTAL OF ACETAMINOPHEN (APAP) FROM ALL MEDS 90 November 16, 2019 [id number] October 18, 2019 [facility] METHOTREXATE NA 2.5MG TAB Active TAKE SEVEN TABLETS BY MOUTH EVERY WEEK October 17, 2020 [id number] November 04, 2019 [facility] METHOTREXATE NA 2.5MG TAB Discontinued TAKE SEVEN TABLETS BY MOUTH EVERY WEEK 90 May 09, 2020 [id number] Aug 16, 2019 NASH KULKARNI [facility] METHOTREXATE NA 2.5MG TAB Discontinued TAKE SEVEN TABLETS BY MOUTH EVERY WEEK 90 Aug 04, 2019 [id number] Feb 22, [address] [facility] [place] NORTRIPTYLINE HCL 10MG CAP Active TAKE 2 CAPSULES BY MO UTH AT BEDTIME NEEDED 120 Apr 02, 2020 [id number] Nov 20, 2019 [facility] [place] NORTRIPTYLINE HCL 10MG CAP Discontinued TAKE 2 CAPSUL ES BY MOUTH AT BEDTIME NEEDED 120 Mar 20, 2019 [id number] Jan 23, 2019 [facility] OMEPRAZOLE 20MG CAP,EC Active TAKE 1 CAPSULE BY MOUTH EVERY MORNING TO LOWER STOMACH ACID. TAKE 30 MINUTES PRIOR TO FOOD. 90 October 17, 2020 [id number] October 21, 2019 [facility] OMEPRAZOLE 20MG CAP,EC Discontinued TAKE 1 CAPSULE BY MOUTH EVERY MORNING TO LOWER STOMACH ACID. TAKE 30 MINUTES PRIOR TO FOOD. 90 Oct 02, 2019 [id number] Aug 02, 2019 [facility] [place] PREDNISONE 1MG TAB Discontinued TAKE THREE TABLETS B Y MOUTH ONCE A DAY FOR INFLAMMATION AND IMMUNE RESPONSE. TAKE WITH FOOD OR MILK. 270 2019 [id number] Apr 24, 2019 [facility] PREDNISONE 1MG TAB Discontinued TAKE FOUR TABLETS BY MOUTH ONCE A D AY 360 Apr 22, 2019 [id number] Jan 24, 2019 [facility] [place] PREDNISONE 1MG TAB Discontinued TAKE FOUR TABLETS BY MOUTH ONCE A D AY 360 Dec 29, 2018 [id number] Oct 01, 2018 NASH KULKARNI V [facility] PREDNISONE 1MG TAB TAKE THREE TABLETS B Y MOUTH ONCE A DAY FOR INFLAMMATION AND IMMUNE RESPONSE. TAKE WITH FOOD OR MILK. 270 Ap r 2019 [id number] Jul 13, 2019 [facility] [place] PREDNISONE 5MG TAB Discontinued TAKE ONE TABLET BY MOUTH ONCE A DAY WITH FOOD 60 Aug 01, 2019 [id number] Sep 25, 2018 [facility] [place] ROPINIROLE HCL 1MG TAB Active TAKE ONE TABLET BY MOUTH AT BED TIME 90 October 17, 2020 [id number] Nov 25, 2019 [facility] ROPINIROLE HCL 1MG TAB Discontinued TAKE ONE TABLET BY MOUTH AT BED TIME 90 Dec 05, 2019 [id number] Sep 03, [address] [facility] [place] ROPINIROLE HCL 1MG TAB Discontinued TAKE ONE TABLET BY MOUTH AT BED TIME 90 Dec 13, 2018 [id number] Sep 12, 2018 [address] [facility] [place] TAMSULOSIN HCL 0.4MG CAP Active: Susp TAKE 1 CAPSULE BY MOUTH ONCE A DAY FOR PROSTATE. TAKE AT THE SAME TIME EACH DAY WITH FOOD. 90 Sep 30 1 [id number] Dec 20, [address] [facility] [place] TAMSULOSIN HCL 0.4MG CAP Discontinued TAKE 1 CAPSULE BY MOUTH ONCE A DAY FOR PROSTATE. TAKE AT THE SAME TIME EACH DAY WITH FOOD. 90 Sep 12 0 [id number] Jun 24, [address] [facility] [place] Problems (Conditions): All historical [...] ent(s) Provider Source Abnormal radiologic density Active [id number] KOURTNEY HWANG [facility] [place] Allergic rhinitis Active 11570017 MARIELADY [facility] [place] Anemia Active [id number] KOURTNEY DANIELSON [facility] [place] Chest pain (SNOMED CT 75542654) Active 786.50 KOURTNEY DANIELSON [facility] [place] Chondrocalcinosis Active [id number] JASONYOU [facility] [place] Chronic obstructive lung disease Active 17239596 [facility] [place] Coronary artery disease Active [id number] Angella LINDSEY [facility] [place] Cough Active [id number] LADY SAL[place]AR [place] Angella S [facility] [place] Cough (SNOMED CT 62625918) Active 786.2 [address] [facility] [place] Dysarthria (SNOMED CT 0107837) Active 784.51 M JACOBOKOURTNEY Ortega [facility] [place] Dyspnea (SNOMED CT 348048630) Active 786.09 KOURTNEY BARKSDALE [facility] [place] Eruption due to drug Active 92192113 Abdiaziz DANIELSON TORY [facility] [place] Gastroesophageal reflux disease Active 814813559 KOURTNEY DANIELSON [facility] [place] Hallux valgus AND bunion Active 513003241 DEISY GERMAIN [facility] [place] Joint pain (SNOMED CT 66993541) Active 719.40 DEISY [address]ERAS [facility] [place] Joint swelling (SNOMED CT 252442715) Active 719.00 KOURTNEY DANIELSON [facility] [place] Knee pain Active 33500423 JENNIFER LINDSEY [facility] [place] Muscle weakness (SNOMED CT 64615782) Active 728.87 KOURTNEY DANIELSON [facility] [place] Neuropathy Active [id number] KOURTNEY DANIELSON RN [facility] [place] Osteoarthritis Active 715.[address] [facility] [place] Parkinson's disease Active 87736743 ETHAN DANIELSON KAYLYN [facility] [place] Peripheral Neuropathy Active 356.9 DASARAJU,P URUSHOTHAMA [facility] [place] Personal History of Exposure to Agent [place] Active V15.89 DEISY [address]ERAS [facility] [place] Polyp of colon (SNOMED CT 55068199) Active 211.3 KOURTNEY DANIELSON [facility] [place] Restless legs Active 72436555 PATRICK WHITE [facility] [place] Rheumatoid arthritis Active 60411792 Abdiaziz DANIELSON TORY [facility] [place] Screening, Malignancy Active V76.89 LISSETH TOLEDO [facility] [place] Sleep apnea Active 15166022 KOURTNEY DANIELSON RN [facility] [place] Synovial cyst of popliteal space (SNOMED CT 09352476) Active 727.51 KOURTNEY DANIELSON [facility] [place] Tobacco dependence in remission Active 549466924 TARIQKOURTNEY SMITH [facility] [place] Tobacco use Active 060067382 JENNIFER LINDSEY [facility] [place] Tremor Active 70605446 JENNIFER LINDSEY K S [facility] [place] Unresolved Active 33611564 JENNIFER LINDSEY [place] [facility] [place] Unresolved Active 75122790 JENNIFER LINDSEY [facility] [place] Radiology Reports: +/- 30 days of the encounter No Data Provided for This Section Pathology Reports: +/- 30 days of the encounter No Data Provided for This Section Encounter Notes: All associated encounter notes This section contains the clinical notes associated to the Encounter. Date/Time Encounter Note(s) Provider Source Dec 04, 2019 05:04 PM ADMINISTRATIVE NOTE: LOCAL TITLE: EK-NOTIFICATION OF TEST RESULTS BY PHONE STANDARD TITLE: ADMINISTRATIVE NOTE DATE OF NOTE: DEC 04, 2019@17:04 ENTRY DATE: DEC 04, 2019@17:04:48 AUTHOR: KOURTNEY DANIELSON EXP COSIGNER: URGENCY: STATUS: COMPLETED EK-NOTIFICATION OF TEST RESULTS BY PHONE Has ADDENDA The following test results along with an appropriate management plan were discussed with patient by phone: Lab: critical lab Hg 3.2 Received notification of critical labs from [facility] LAB: Hg 3.2, plt 536 Remaining labs pending Call to vet. is home w/ vet. Given info on current lab and need for eval and tx at ER. Vet is to contact ER 1st for their COVID screening, v/u. This provider will call [facility] and give preliminary CBC results. Call to [phone]. Spoke w/ Robinson Matthews PRINTING MACHINIST in ER and given info. v/u and said they will check for clinic notes from Dr Hooks, seen last month for hypotension and fludrocort started. States they do not need addl lab results if not available "We will get them we he arrives." current med list and labs Faxing to [phone] It is documented that patient verbalized understanding of results and/or actions required? Yes Vet given [facility] Emergency contact number to call after ER. /sofya/ KOURTNEY BAIG Signed: 12/04/2019 17:07 12/04/2019 ADDENDUM STATUS: COMPLETED Spoke w/ constanzat briefly in parking lot, prior to lab draw. Sitting on steps "I need wheelchair. My blood pressure ggets low when I walk." Staff assisted vet to w/c and then for lab. Vet was unable to provide urine specimen despite sitting in waiting room drinking water until 1pm. Assisted back to car. Vet's pulse ~ 80s- 90 and regular. Note significant pitting edema of lower legs "That started after the fludrocort started" by Dr Hooks, per 11/06/19 secrue message Strated after seen and then recieved rx [facility]. Vet is noted to be pale. Not notiably SOA. Talks freely w/ staff. PC after lab received, vet denies evidence of blood loss. No dark stools or hematuria (no urine obtained). Is more constipated than usual. No bleeding of gums or nosebleed. /sofya/ KOURTNEY DANIELSON [facility] Signed: 12/04/2019 17:36 KOURTNEY DANIELSON [facility]
--- OUTSIDE RECORDS SUMMARY | 2019-12-04 21:58 | XMS REPORT | Encounter Summary ---
Author Author Department of [facility] CARLOS sweeney Organization Department of [facility] Address [address] [place] [phone] Phone Unavailable Care Team Providers Care Web Applications Developer Name Role Phone KJ POTTER PCP Unavailable Insurance Providers: All historical and [...] PLAN G MEDICARE SUPPLEMENT Dec PLAN G [id number] [phone] CARLOS REYNOLDS PATIENT MEDICARE (WNR) MEDICARE (M) PART A Dec 16, 2014 PART A [id number] CARLOS REYNOLDS PATIENT MEDICARE (WNR) MEDICARE (M) PART B Dec 16, 2014 PART B [id number] [phone] CARLOS REYNOLDS PATIENT MEDICO DENTAL INSURANCE DENTAL VISIONHEARING Dec 16, 2014 DENTAL VISIONHEAR [id number] [phone] CARLOS REYNOLDS PATIENT Selected Encounter This section includes the information on record at [place] for the Encounter. Date/Time Encounter Type Encounter Description Reason Provider Source October 17, 2019 09:00 AM Outpatient Encounter TELEPHONE PRIMARY CAR E ICD-10-CM M06.9 Rheumatoid arthritis, unspecified with Provider Comments: Rheumatoid arthritis ([facility] [id number]) KJ POTTER [facility] IHE Encounter Template Text not used by [place] Assessments - Encounter Diagnoses This section includes the primary and secondary diag noses documented for the Encounter. Date/Time Primary/Secondary Diagnosis Diagnosis Name Provider Source October 17, 2019 09:00 AM PRIMARY Rheumatoid arthritis, unsp ecified CARRINGTONJULIOCESARE Brian [facility] October 17, 2019 09:00 AM PRIMARY Rheumatoid arthritis, unsp ecified CARRINGTONJULIOCESARE Brian [facility] October 17, 2019 09:00 AM SECONDARY Athscl heart disea se [facility] [place] [facility] [place] coronary artery w/o ang pctrs MARTIN SHULTZ [facility] October 17, 2019 09:00 AM SECONDARY Benign prostatic h yperplasia without lower urinry tract symp MARTIN SHULTZ Brian [facility] October 17, 2019 09:00 AM SECONDARY Chest pain, unspecified CARIRNGTON,C ATHERGUDELIA [facility] October 17, 2019 09:00 AM SECONDARY Chronic obstructiv e pulmonary disease, unspecified MARTIN SHULTZ Brain [facility] October 17, 2019 09:00 AM SECONDARY Chronic obstructiv e pulmonary disease, unspecified MARTIN SHULTZ [facility] October 17, 2019 09:00 AM SECONDARY Dorsalgia, unspecified CARR[place],CA THERGUDELIA [facility] October 17, 2019 09:00 AM SECONDARY Gastro-esophageal reflux disease without esophagitis MARTIN SHULTZ [facility] October 17, 2019 09:00 AM SECONDARY Gastro-esophageal reflux disease without esophagitis MARTIN SHULTZ Brian [facility] October 17, 2019 09:00 AM SECONDARY Idiopathic progressive ke ropathy MARTIN SHULTZ Brian [facility] October 17, 2019 09:00 AM SECONDARY Insomnia, unspecified CARRINGTONCAT HERGUDELIA [facility] October 17, 2019 09:00 AM SECONDARY senior living (current) use of anticoagulants MARTIN SHULTZ [facility] October 17, 2019 09:00 AM SECONDARY Major depressive d isorder, single episode, unspecified MARTIN SHULTZ [facility] October 17, 2019 09:00 AM SECONDARY Obstructive sleep apnea (a dult) (pediatric) MARTIN SHULTZ [facility] October 17, 2019 09:00 AM SECONDARY Other chronic pain TAYLOR SHULTZ [facility] October 17, 2019 09:00 AM SECONDARY Other nonspecific abnormal finding of lung field MARTIN SHULTZ [facility] October 17, 2019 09:00 AM SECONDARY Other nonspecific abnormal finding of lung field MARTIN SHULTZ [facility] October 17, 2019 09:00 AM SECONDARY Other seasonal allergic rh initis MARTIN SHULTZ [facility] October 17, 2019 09:00 AM SECONDARY Pain in left knee BROOK SHULTZ [facility] October 17, 2019 09:00 AM SECONDARY Pain in right knee TAYLOR SHULTZ [facility] October 17, 2019 09:00 AM SECONDARY Pain in right shoulder ABI SHULTZ [facility] October 17, 2019 09:00 AM SECONDARY Pain in unspecified knee MARTIN SHULTZ [facility] October 17, 2019 09:00 AM SECONDARY Parkinson's disease GIBRAN SHULTZ [facility] October 17, 2019 09:00 AM SECONDARY Parkinson's disease GIBRAN SHULTZ [facility] October 17, 2019 09:00 AM SECONDARY Polyp of colon MARTIN SHULTZ [facility] October 17, 2019 09:00 AM SECONDARY Presence 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, unsp MARTIN SHULTZ [facility] October 17, 2019 09:00 AM SECONDARY Restless legs syndrome ABI SHULTZ [facility] October 17, 2019 09:00 AM SECONDARY Restless legs syndrome ABI SHULTZ [facility] October 17, 2019 09:00 AM SECONDARY Tobacco use MARTIN SHULTZ [facility] October 17, 2019 09:00 AM SECONDARY Transient cerebral ischemi c attack, unspecified MARTIN SHULTZ [facility] October 17, 2019 09:00 AM SECONDARY Unspecified hearing loss, bilateral MARTIN SHULTZ [facility] Plan of Treatment: Future Appointments (+ 6 months) and Future Tests (+/- 45 day s) The Plan of Treatment section includes future care activities for the patient fr om all [place] treatment facilities. This section includes future appointments and fu ture orders which are active, pending or scheduled. Future Appointments This section includes appointments that were scheduled t o occur 6 months from the date of the Encounter, up to a maximum of 20 appointme nts. The data comes from all [place] treatment facilities. Appointment Date/Time Appointment Type Appointment Facili ty Name October 27, 2019 09:45 AM [facility]ATORY - NONE [facility] [place] [facility] Nov 20, 2019 05:00 PM AM[facility]ULATORY - MEDICINE [facility] Nov 24, 2019 11:20 AM AMBULATORY - NONE [facility] Dec 02, 2019 10:30 AM AMBULATORY - NONE [facility] Dec 03, 2019 12:30 PM AMBULATORY - NONE [facility] Dec 04, 2019 10:45 AM [facility] Dec 10, 2019 01:30 PM AMBULATORY - MEDICINE [facility] Jan 06, 2020 10:30 AM AMBULATORY - MEDICINE [facility] Active, Pending, and Scheduled Orders This [...] the Encounter. The data comes from all [place] treatment facilities. Test Date/Time Test Type Test Details Facility Name Sep 03, 2019 03:01 PM Consult Order [facility]- EYE [id number] Cons Transmissions Systems Operator's Choice [facility] Surgical Procedures: All associated to [...] and tobacco- related health factors from the [place] facility where the Encounter took place. Current Smoking Status This section includes the most current smoking, or tobacco -related health factor, from the [place] facility where the Encounter took place. Date/Time Current Smoking Status Comment Facility October 17, 2018 05:26 PM [place]-TOBACCO QUIT 1 TO < 5 YRS [facility] Tobacco Use History This section includes a history of the smoking, or tobacco -related health factors, that were collected on or before the date of the Encoun ter. The data comes from the [place] facility where the Encounter took place. Date/Time Smoking Status/Tobacco Use Comment [facility] October 17, 2018 05:26 PM [place]-TOBACCO QUIT 1 TO < 5 YRS [facility] Nov 26, 2017 01:35 PM QUIT TOBACCO IN THE LAST 12 MONTHS F [facility] Nov 26, 2017 01:35 PM TOBACCO CESSATION REFERRAL DECLINED [facility] Nov 26, 2017 01:35 PM TOBACCO MEDS OFFERED BUT DECLINED FO RT [facility] Nov 26, 2017 01:35 PM TOBACCO USER OFFERED MEDS [facility] Feb 27, 2017 12:58 PM QUIT TOBACCO IN THE LAST 12 MONTHS F [facility] Feb 27, 2017 12:58 PM TOBACCO CESSATION REFERRAL DECLINED [facility] Feb 27, 2017 12:58 PM TOBACCO MEDS OFFERED BUT DECLINED FO RT [facility] Feb 27, 2017 12:58 PM TOBACCO USER OFFERED MEDS [facility] May 02, 2016 09:04 AM CURRENT NON-TOBACCO USER [facility] Sep 29, 2015 07:48 AM CURRENT TOBACCO USER [facility] Sep 29, 2015 07:48 AM TOBACCO OFFERED STOP SMOKING CLINIC [facility] Mar 19, 2015 07:54 AM CURRENT TOBACCO USER [facility] Mar 19, 2015 07:54 AM TOBACCO OFFERED STOP SMOKING [facility] Jan 02, 2014 08:44 AM CURRENT NON-TOBACCO USER [facility] Jul 30, 2013 10:01 AM CURRENT TOBACCO USER [facility] Jul 17, 2012 11:09 AM CURRENT TOBACCO USER [facility] Advance Directives: All historical and current No Data Provided for This Section Allergies and Adverse Reactions (ADRs): All historical and current Section Date Range: From patient's date of to the date document was create d. This section includes Allergies and Adverse Reactions (ADR s) on record with VA for the patient. The data comes from a [facility] treatment facilities. It does not list Allergies/ADRs that were removed or entered in error. Some allergies/ADRs may be reported in t he Immunization section. Allergen Event Date Event Type Reaction(s) Severity Source PANTOPRAZOLE Oct 01, 2018 Propensity to adverse reactions to drug (disorder) Eruption [facility] 15 PENICILLIN Jul 17, 2012 Propensity to adverse reactions to drug (disorder) Peripheral edema [facility] 15 Medications: VA dispensed (-15 months) and Non-VA Documented (Obtained Outside A) Section Date Range: 1) prescriptions processed by a [place] pharmacy in the last 15 m ont, and 2) all medications recorded in the [place] medical record as "non-VA medic ations". Pharmacy terms refer to VA pharmacy's work on prescriptions. VA patient s are advised to take their medications as instructed by their health care team. The data comes from all [place] treatment facilities. Glossary of Pharmacy Terms:Active = A prescription that can be filled at the local [place] pharmacy.Active: On Hold = An active prescription that will not be filled until pharmacy resolves the issue.Active: Susp = An active prescription that is not scheduled to be filled yet.Clinic Order = A medication received during a visit to a [place] clinic or emergency department (currently not available).Discontinued [...] may be a prescription from either the [place] or other providers that was filled outside the [place]. Or, it may be an over the [...] FOR INHALATION ONCE 1 Nov 16, 2018 [id number] October 17, 2018 KJ POTTER [facility] ALBUTEROL SO4 90MCG/ACTUAT (CFC-F) INHL,ORAL,6.7GM Active INHALE 2 PUFFS BY ORAL INHALATION FOUR TIMES A DAY NEEDED - RINSE MOUTHPIECE FREQUENTLY TO PREVENT CLOGGING 1 Apr 24, 2020 [id number] October 18, 2019 KJ POTTER [facility] ALBUTEROL SO4 90MCG/ACTUAT (CFC-F) INHL,ORAL,6.7GM Discontin ued INHALE 2 PUFFS BY ORAL INHALATION FOUR TIMES A DAY NEEDED - RINSE MOUTHPIECE FREQUENTLY TO PREVENT CLOGGING 2 Apr 24, 2020 [id number] Apr 24, 2019 KJ POTTERT [facility] BUDESONIDE 160MCG/FORMOTEROL FUM 4.5MCG/SPRAY INHL,ORAL,10.2 GM Active INHALE 2 PUFFS BY ORAL INHALATION TWO TIMES A DAY FOR BREATHING. SHAKE WELL. RINSE MOUTH AND SPIT AFTER EACH USE. 2 Apr 24, 2020 [id number] October 17, 2019 KJ JOSHI [facility] CALCIUM 500MG (CA CARBONATE-1.25GM) TAB Active: Susp TAKE ONE TABLET BY MOUTH TWO TIMES A DAY 180 Nov 20, 2020 [id number] Jan 09, 2020 TARIQKJ [facility] CALCIUM 500MG (CA CARBONATE-1.25GM) TAB Discontinued TAKE ONE TABLET BY MOUTH TWO TIMES A DAY 180 Jan 08, 2020 [id number] October 21, 2019 TARIQKJ [facility] [place] CALCIUM 500MG (CA CARBONATE-1.25GM) TAB Discontinued TAKE ONE TABLET BY MOUTH TWO TIMES A DAY 180 Dec 29, 2018 [id number] Oct 01, 2018 NASH KULKARNI [facility] CARBIDOPA 25MG/LEVODOPA 100MG TAB Active TAKE 2 TABLETS BY MOUTH FOUR TIMES A DAY FOR PARKINSON'S DISEASE. DO NOT TAKE WITH FOOD. 240 Nov 24, 2020 [id number] Nov 27, 2019 [facility] [place] CARBIDOPA 25MG/LEVODOPA 100MG TAB Discontinued TAKE T WO TABLETS BY MOUTH FIVE TIMES DAILY FOR PARKINSON'S DISEASE. DO NOT TAKE WITH FOOD. 600 Jul 02, 2020 [id number] Nov 19, 2019 [facility] CARBIDOPA 25MG/LEVODOPA 100MG TAB Discontinued TAKE 2 TABLETS BY MOUTH FIVE TIMES DAILY FOR PARKINSON'S DISEASE. DO NOT TAKE WITH FOOD. 300 Jun 30, 2020 [id number] Jul 01, 2019 [facility] [place] [facility] CARBIDOPA 25MG/LEVODOPA 100MG TAB Discontinued TAKE 2 TABLETS BY MOUTH FOUR TIMES A DAY FOR PARKINSON'S DISEASE. DO NOT TAKE WITH FOOD. 240 Jun 24, 2020 [id number] Jun 26, 2019 [facility] [place] [facility] CARBIDOPA 25MG/LEVODOPA 100MG TAB Discontinued TAKE 2 TABLETS BY MOUTH FOUR TIMES A DAY FOR PARKINSON'S DISEASE. DO NOT TAKE WITH FOOD. 240 Dec 25, 2019 [id number] May 15, 2019 [facility] [place] [facility] CARBIDOPA 25MG/LEVODOPA 100MG TAB Discontinued TAKE 2 TABLETS BY MOUTH FOUR TIMES A DAY FOR PARKINSON'S DISEASE. DO NOT TAKE WITH FOOD. 240 Jun 07, 2019 [id number] Nov 18, 2018 [facility]GRA HOWE [facility] [place] [facility] CHOLECALCIFEROL 25MCG (1,000UNIT) TAB Active: Susp TA KE TWO TABLETS BY MOUTH ONCE A DAY FOR VITAMIN D DEFICIENCY 200 Nov 20, 2020 [id number] Dec 172019 [facility] CHOLECALCIFEROL 25MCG (1,000UNIT) TAB Discontinued TA KE TWO TABLETS BY MOUTH ONCE A DAY FOR VITAMIN D DEFICIENCY 200 Dec 25, 2019 [id number] October [facility] [place] [facility] CHOLECALCIFEROL 25MCG (1,000UNIT) TAB Discontinued TA KE TWO TABLETS BY MOUTH ONCE A DAY FOR VITAMIN D DEFICIENCY 200 Oct 10, 2018 [id number] Aug 172018 [facility] CLOPIDOGREL BISULFATE 75MG TAB Active: Susp TAKE ONE TABLET BY MOUTH ONCE A DAY TO PREVENT BLOOD CLOTS 90 Apr 24, 2020 [id number] Dec 19, 2019 [facility] CLOPIDOGREL BISULFATE 75MG TAB Discontinued TAKE ONE TABLET BY MOUTH ONCE A DAY TO PREVENT BLOOD CLOTS 90 Jun 01, 2019 [id number] Mar 13, 2019 [facility] [place] DIPHENHYDRAMINE HCL 25MG CAP Non-VA TAKE 1 CAPSULE BY MOUTH EVERY 6 HOURS NEEDED Non-VA Documented by: KJ POTTER nted at: [facility] FLUDROCORTISONE ACETATE 0.1MG TAB Active TAKE ONE TABLET BY M OUTH ONCE A DAY 90 Nov 19, 2020 [id number] Nov 20, 2019 [facility] [place] [facility] FOLIC ACID 1MG TAB Non- VA TAKE ONE TABLET BY MOUTH ONCE A DAY N on-VA Documented by: KJ POTTER nted at: [facility] GABAPENTIN 300MG CAP Active TAKE 1 CAPSULE BY M OUTH 5 TIMES A DAY FOR PAIN AND TREMORS. 300 October 17, 2020 [id number] October 18, [facility] 300[facility] CAP Discontinued TAKE ONE CAPSULE BY MOUTH FOUR TIMES A DAY FOR PAIN AND TREMORS. 240 Jan 08, 2020 [id number] Oct 14, 2019 [facility] GABAPENTIN 300MG CAP Discontinued TAKE ONE CAPSULE BY MOUTH FOUR TIMES A DAY FOR PAIN AND TREMORS. 240 Mar 08, 2019 [id number] Jan 07, 2019 [facility] [place] [facility] HYDROCODONE 10MG/ACETAMINOPHEN 325MG TAB Active TAKE ONE TABLET (10/325MG) BY MOUTH THREE TIMES A DAY NEEDED FOR PAIN CAUTION: DO NOT EXCEED 4000MG/DAY TOTAL OF ACETAMINOPHEN (APAP) FROM ALL MEDS 90 Dec 20, 2019 [id number] Nov 21, 2019 [facility] HYDROC[facility]ONE 10MG/ACETAMINOPHEN 325MG TAB Discontinued TAKE ONE TABLET (10/325MG) BY MOUTH THREE TIMES A DAY NEEDED FOR PAIN CAUTION: DO NOT EXCEED 4000MG/DAY TOTAL OF ACETAMINOPHEN (APAP) FROM ALL MEDS 90 Sep 17, 020 [id number] Sep 04, 2019 [facility] [place] [facility] HYDROCODONE 10MG/ACETAMINOPHEN 325MG TAB Discontinued TAKE ONE TABLET BY MOUTH THREE TIMES A DAY NEEDED FOR PAIN CAUTION: DO NOT EXCEED 4000MG/DAY TOTAL OF ACETAMINOPHEN (APAP) FROM ALL MEDS 90 Jul 26, 2019 [id number] Jun 26, 2019 [facility] [place] [facility] HYDROCODONE 10MG/ACETAMINOPHEN 325MG TAB Discontinued TAKE ONE TABLET BY MOUTH THREE TIMES A DAY NEEDED FOR PAIN CAUTION: DO NOT EXCEED 4000MG/DAY TOTAL OF ACETAMINOPHEN (APAP) FROM ALL MEDS 90 Jun 27, 2019 [id number] May 29, 2019 [facility] [place] [facility] HYDROCODONE 10MG/ACETAMINOPHEN 325MG TAB Discontinued TAKE ONE TABLET BY MOUTH THREE TIMES A DAY NEEDED FOR PAIN CAUTION: DO NOT EXCEED 4000MG/DAY TOTAL OF ACETAMINOPHEN (APAP) FROM ALL MEDS 90 May 08, 2019 [id number] Apr 08, 2019 [facility] [place] [facility] HYDROCODONE 10MG/ACETAMINOPHEN 325MG TAB Discontinued TAKE ONE TABLET BY MOUTH THREE TIMES A DAY NEEDED FOR PAIN CAUTION: DO NOT EXCEED 4000MG/DAY TOTAL OF ACETAMINOPHEN (APAP) FROM ALL MEDS 90 Mar 28, 2019 [id number] Feb 26, 2019 [facility] [place] [facility] HYDROCODONE 10MG/ACETAMINOPHEN 325MG TAB Discontinued TAKE ONE TABLET BY MOUTH THREE TIMES A DAY NEEDED FOR PAIN CAUTION: DO NOT EXCEED 4000MG/DAY TOTAL OF ACETAMINOPHEN (APAP) FROM ALL MEDS 90 Feb 06, 2019 [id number] Jan 07, 2019 [facility] [place] HYDROCODONE 10MG/ACETAMINOPHEN 325MG TAB Discontinued TAKE ONE TABLET BY MOUTH THREE TIMES A DAY NEEDED FOR PAIN CAUTION: DO NOT EXCEED 4000MG/DAY TOTAL OF ACETAMINOPHEN (APAP) FROM ALL MEDS 90 Dec 05, 2018 [id number] November 05, 2018 [facility] [place] [facility] HYDROCODONE 10MG/ACETAMINOPHEN 325MG TAB Discontinued TAKE ONE TABLET BY MOUTH THREE TIMES A DAY NEEDED FOR PAIN CAUTION: DO NOT EXCEED 4000MG/DAY TOTAL OF ACETAMINOPHEN (APAP) FROM ALL MEDS 90 October 25, 2018 [id number] Sep 25, 2018 [facility] [place] [facility] HYDROCODONE 10MG/ACETAMINOPHEN 325MG TAB TAKE ONE TABLET (10/325MG) BY MOUTH THREE TIMES A DAY NEEDED FOR PAIN CAUTION: DO NOT EXCEED 4000MG/DAY TOTAL OF ACETAMINOPHEN (APAP) FROM ALL MEDS 90 November 16, 2019 [id number] October 18, 2019 [facility] METHOTREXATE NA 2.5MG TAB Active TAKE SEVEN TABLETS BY MOUTH EVERY WEEK 90 October 17, 2020 [id number] November 04, 2019 [facility] METHOTREXATE NA 2.5MG TAB Discontinued TAKE SEVEN TABLETS BY MOUTH EVERY WEEK 90 May 09, 2020 [id number] Aug 16, 2019 NASH KULKARNI [facility] METHOTREXATE NA 2.5MG TAB Discontinued TAKE SEVEN TABLETS BY MOUTH EVERY WEEK 90 Aug 04, 2019 [id number] Feb 22, 2019 YOU GOMEZ [facility] [place] [facility] NORTRIPTYLINE HCL 10MG CAP Active TAKE 2 CAPSULES BY MO UTH AT BEDTIME NEEDED 120 Apr 02, 2020 [id number] Nov 20, 2019 [facility] [place] [facility] NORTRIPTYLINE HCL 10MG CAP Discontinued TAKE 2 CAPSUL ES BY MOUTH AT BEDTIME NEEDED 120 Mar 20, 2019 [id number] Jan 23, 2019 [facility] OMEPRAZOLE 20MG CAP,EC Active TAKE 1 CAPSULE BY MOUTH EVERY MORNING TO LOWER STOMACH ACID. TAKE 30 MINUTES PRIOR TO FOOD. 90 October 17, 2020 [id number] October 21, 2019 [facility] OMEPRAZOLE 20MG CAP,EC Discontinued TAKE 1 CAPSULE BY MOUTH EVERY MORNING TO LOWER STOMACH ACID. TAKE 30 MINUTES PRIOR TO FOOD. 90 Oct 02, 2019 [id number] Aug 02, 2019 [facility] [place] [facility] PREDNISONE 1MG TAB Discontinued TAKE THREE TABLETS B Y MOUTH ONCE A DAY FOR INFLAMMATION AND IMMUNE RESPONSE. TAKE WITH FOOD OR MILK. 270 Fe b 2019 [id number] Apr 24, 2019 [facility] PREDNISONE 1MG TAB Discontinued TAKE FOUR TABLETS BY MOUTH ONCE A D AY 360 Apr 22, 2019 [id number] Jan 24, 2019 [facility] [place] PREDNISONE 1MG TAB Discontinued TAKE FOUR TABLETS BY MOUTH ONCE A D AY 360 Dec 29, 2018 [id number] Oct 01, 2018 NASH KULKARNI [facility] PREDNISONE 1MG TAB TAKE THREE TABLETS B Y MOUTH ONCE A DAY FOR INFLAMMATION AND IMMUNE RESPONSE. TAKE WITH FOOD OR MILK. 270 Ap r 2019 [id number] Jul 13, 2019 [facility] [place] [facility] PREDNISONE 5MG TAB Discontinued TAKE ONE TABLET BY MOUTH ONCE A DAY WITH FOOD 60 Aug 01, 2019 [id number] Sep 25, 2018 [facility] [place] [facility] ROPINIROLE HCL 1MG TAB Active TAKE ONE TABLET BY MOUTH AT BED TIME 90 October 17, 2020 [id number] Nov 25, 2019 [facility] ROPINIROLE HCL 1MG TAB Discontinued TAKE ONE TABLET BY MOUTH AT BED TIME 90 Dec 05, 2019 [id number] Sep 03, 2019 KRYSTAL DEJESUS [facility] [place] ROPINIROLE HCL 1MG TAB Discontinued TAKE ONE TABLET BY MOUTH AT BED TIME 90 Dec 13, 2018 [id number] Sep 12, 2018 [facility] [place] TAMSULOSIN HCL 0.4MG CAP Active: Susp TAKE 1 CAPSULE BY MOUTH ONCE A DAY FOR PROSTATE. TAKE AT THE SAME TIME EACH DAY WITH FOOD. 90 Sep 30 1 [id number] Dec 20, 2019 KJ POTTER [facility] [place] [facility] TAMSULOSIN HCL 0.4MG CAP Discontinued TAKE 1 CAPSULE BY MOUTH ONCE A DAY FOR PROSTATE. TAKE AT THE SAME TIME EACH DAY WITH FOOD. 90 Sep 12 0 [id number] Jun 24, 2019 LIS BRUCE [facility] [place] [facility] Problems (Conditions): All historical and current Section Date Range: From patient's date of to the date document was create d. This section includes a list of Problems (Conditions) know n to VA for the patient. It includes both active and inacti ve problems (conditions). The data comes from all [place] treatment facilities. Problem Status Problem Code Date of Onset Date of Resolution Comm ent(s) Provider Source Abnormal radiologic density Active [id number] KJ HWANG [facility] [place] [facility] Allergic rhinitis Active 42828446 LADY SALAZAR [facility] [place] [facility] Anemia Active [id number] [facility] [place] [facility] Chest pain (SNOMED CT 69908408) Active 786.50 [facility] [place] [facility] Chondrocalcinosis Active [id number] JASONYOU SOLIS [facility] [place] [facility] Chronic obstructive lung disease Active 47367253 [facility] [place] [facility] Coronary artery disease Active 98455449 Angella LINDSEY Toshia [facility] [place] [facility] Cough Active [id number] [facility] SAL[facility] [place] Cough (SNOMED CT 08566163) Active 786.2 KJ BARRON [facility] [place] [facility] Dysarthria (SNOMED CT 0474902) Active 784.51 M KJ WONG [facility] [place] [facility] Dyspnea (SNOMED CT 191663918) Active 786.09 KJ BARKSDALE [facility] [place] [facility] Eruption due to drug Active 86038753 Abdiaziz POTTER [facility] [place] [facility] Gastroesophageal reflux disease Active [id number] [facility] [place] [facility] Hallux valgus AND bunion Active 265774760 DEISY GERMAIN Royce [facility] [place] [facility] Joint pain (SNOMED CT 14387641) Active 719.40 HORSCH,DEISY [facility] [place] Joint swelling (SNOMED CT 465894163) Active 719.00 TARIQKJ SMITH [facility] [place] Knee pain Active 10537645 JENNIFER LINDSEY [facility] [place] [facility] Muscle weakness (SNOMED CT 92905413) Active 728.87 KJ POTTER [facility] [place] [facility] Neuropathy Active [id number] KJ POTTER RN [facility] [place] Osteoarthritis Active 715.36 DYAN SERVIN [facility] [place] [facility] Parkinson's disease Active 54743101 [facility]AN [facility] [place] Peripheral Neuropathy Active 356.9 DASFlaquita FERRER URUSHOTHMISTI Jenna [facility] [place] [facility] Personal History of Exposure to Agent [place] Active V15.89 DEISY CONTRERAS [facility] [place] [facility] Polyp of colon (SNOMED CT 25551188) Active 211.3 TARIQKJ SMITH [facility] [place] Restless legs Active 79211220 PATRICK WHITE [facility] [place] Rheumatoid arthritis Active 84065608 Abdiaziz POTTER [facility] [place] [facility] Screening, Malignancy Active V76.89 LISSETH [facility] [facility] [place] [facility] Sleep apnea Active 65522962 KJ POTTER RN [facility] [place] Synovial cyst of popliteal space (SNOMED CT 76656956) Active 727.51 KJ POTTER [facility] [place] [facility] Tobacco dependence in remission Active 598567288 KJ POTTER [facility] [place] [facility] Tobacco use Active 416640114 JENNIFER LINDSEY [facility] [place] Tremor Active [id number] JENNIFER LINDSEY [facility] [place] Unresolved Active [id number] JENNIFER LINDSEY [facility] [place] Unresolved Active [id number] JENNIFER LINDSEY [facility] [place] Radiology Reports: +/- 30 days of the encounter No Data Provided for This Section Pathology Reports: +/- 30 days of the encounter No Data Provided for This Section Encounter Notes: All associated encounter notes This section contains the clinical notes associated to the Encounter. Date/Time Encounter Note(s) Provider Source October 17, 2019 03:40 PM CARE MANAGEMENT NOTE: LOCAL TITLE: EK-PACT CARE MANAGEMENT STANDARD TITLE: CARE MANAGEMENT NOTE DATE OF NOTE: OCTOBER 17, 2019@15:40 ENTRY DATE: OCTOBER 17, 2019@15:40:34 AUTHOR: KJ POTTER EXP JOHN PAULIGNER: URGENCY: STATUS: COMPLETED 10/17/19 To whom it may concern, This letter is in regards to Carlos Reynolds, date of 12/19/19. Due to 's medical status, it is recommended that his accompany him to his medical appointments with providers outside the immediate area. Thank you in advance for your consideration. If you have any further questions, please call our [facility] Outreach clinic at or , ext [phone] or choose Option #4 to speak to the Nurse Corporate Director Talent Assessment. Sincerely, SAFIA Ulloa /sofya/ KJ BAIG Signed: 10/17/2019 15:43 Receipt Acknowledged By: * AWAITING SIGNATURE * MARTIN SHULTZ 10/17/2019 15:50 /es/ KJ TOM MA [facility] October 17, 2019 07:44 AM PRIMARY CARE NURSE PRACTITIO NEIL NOTE: LOCAL TITLE: EK-NURSE PRACTITIONER PC STANDARD TITLE: PRIMARY CARE NURSE PRACTITIONER NOTE DATE OF NOTE: OCTOBER 17, 2019@07:44 ENTRY DATE: OCTOBER 17, 2019@07:44:22 AUTHOR: KJ POTTERIGNER: URGENCY: STATUS: COMPLETED Reason for visit: 6 month appt per phone per COVID19 precautions. No lab results per COVID CC: "Weird things happening w/ my Parkinson's meds and sxs" HPI: Followup chronic medical conditions. "Weird things happening w/ my Parkinson's meds and sxs" * C/o trouble w/ word finding, speech at times. * "I get up slow, I can't control anything because of the tremors and balance. I feel dizzy. My heart rate stayed normal and so does my blood pressure." Discussed 08/06/19 labs from [facility]. Hg 9.0. Vet denies change in bowels, dark stools. In past, vet used to have monthly B12 injection, which he could self- administer. Review of records, unable to find where this was DCd. There was time when es sought care in community, on his own as a 39miler, some gap in followup and providers not IDd under consults as he could initiate them on his own. That process no longer available. Will resume B12 injections and es's daughter can give injection, she is a nurse. Es has upcoming appt at [facility], will obtain labs then, v/u [place] [facility] decreased prednisone further to 2mg/day. C/o Parkinson's sxs increasing. Experiencing sudden "bouts of big tremors, really exaggerated. I have to go take more pills to calm it back down. I have to leave the room when my family is around, I know it bothers them. I can tell if I'm late for a dose. It really bothers my sleep every night. Its making everything worse. I see Dr Howe in May." Es states he increased gabapentin to 300mg 5x/day, takes dose along w/ each dose of Sinemet "It seems to be working good that way." Had a fall latter 2018, injured right knee, seen locally, was told he had small tear of meniscus. Wears knee brace prn. Requests letter for his for her work, that she needs to accompany es to appts. Requests refill of hydrocodone Asks about re-eval of disability. Advised to contact constanzat rep to address. Other providers: Dr William [place], [place], [facility] ROS: Denies chest pain. Shortness of breath stable, symbicort bid, has albuterol for prn use. Denies orthopnea, awakens with dry mouth. Unable to tolerate CPAP. Fatigue +. Sleep is eradict, improved RLS with Requip. No further trouble with awakening with pain from numbness in arms. Headaches stable, ibuprofen prn. No reflux with omeprazole daily, occurs if misses doses. Watches diet. Hx RUQ pressure: 06/02/14 CT abd/pelvis with contrast: Impression: No right upper quadrant mass seen. Small punctate hypodense nodules in the liver may represent small cysts. Bilateral renal cysts the largest in the left kidney measures 2.1 cm. Sigmoid diverticulosis without diverticulitis. Denies dysphagia, hemorrhoids, change in bowel habits, constipation, diarrhea. Nocturia: 0-1x/nite. Daytime frequency improved. Mild edema of hands, no edema in feet, continuation of methotrexate, prednisone. Denies skin problems. Joint pain: hands, knees, hips, left arm, shoulders, mid to low back pain/stiffness. Takes hydrocodone 2 tabs at HS and needing daytime dose prn. Numbness in hands left > right. Knees may swell with overuse. Mood: depression improved. Self-DCd zoloft. PSH: Left Knee surgery 1969 Right Knee surgery; cartilage 1982 Appendectomy age 9 bilat cataracts removed Jan and Feb colonoscopy and polyp removed 09/16/12 fractured left elbow , casted, no surgery [facility] Tobacco: quit smoking in August 2016 ETOH: rarely Activity: becoming more limited, home and yard maintenance, helps care for grandkids Exercise: keeps active as tolerated, performing stretching exercises even of hands. HEP for knees. Walking with . 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 12/20/16 Dr Martin, thru [facility] screening: negative 02/05/14 Illicit Drug Use: No Blood transfusions: No Tattoos: No Piercings: none Diet: Regular Monitor: none Colorectal screening: colonoscopy 09/16/12, repeat 10 yrs Pneumovax: 10/21/13 PCV13: 03/19/15 Tdap: 07/17/12 FH: Father: , no knowledge of medical hx. Mother: , multiple sclerosis, CAD, CHF. No communication w/ siblings. 2 brothers: healthy. 2 sisters: "Hypochondriac", other has epilepsy. Medications: Active Outpatient Medications (including Supplies): Outpatient Medications Status 1) ALBUTEROL 90MCG (CFC-F) 200D ORAL I NHL INHALE 2 PUFFS ACTIVE BY ORAL INHALATION FOUR TIMES A DAY NEEDED - RINSE MOUTHPIECE FREQUENTLY TO PREVENT CLOGGING 2) BUDESONIDE 160/FORMOTER 4.5MCG 120D INH INHALE 2 ACTIVE PUFFS BY ORAL INHALATION TWO TIMES A DAY FOR BREATHING. SHAKE WELL. RINSE MOUTH AND SPIT AFTER EACH USE. 3) CALCIUM 500MG (CA CARB-1.25GM) TAB TAKE ONE TABLET BY ACTIVE MOUTH TWO TIMES A DAY 4) CARBIDOPA 25/LEVODOPA 100MG TAB PURA E 2 TABLETS BY ACTIVE MOUTH FIVE TIMES DAILY FOR PARKINSON'S DISEASE. DO NOT TAKE WITH FOOD. 5) CHOLECALCIF 25MCG (D3-1,000UNIT) TA B TAKE TWO TABLETS ACTIVE BY MOUTH ONCE A DAY FOR VITAMIN D DEFICIENCY 6) CLOPIDOGREL BISULFATE 75MG TAB TAKE ONE TABLET BY ACTIVE MOUTH ONCE A DAY TO PREVENT BLOOD CLOTS 7) GABAPENTIN 300MG CAP TAKE ONE CAPSU LE BY MOUTH FOUR ACTIVE (S) TIMES A DAY FOR PAIN AND TREMORS. 8) METHOTREXATE NA 2.5MG TAB TAKE LI N TABLETS BY MOUTH ACTIVE EVERY WEEK 9) NORTRIPTYLINE HCL 10MG CAP TAKE TWO CAPSULES BY MOUTH ACTIVE AT BEDTIME NEEDED 10) ROPINIROLE HCL 1MG TAB TAKE ONE TAB LET BY MOUTH AT ACTIVE BEDTIME 11) TAMSULOSIN HCL 0.4MG CAP TAKE ONE C APSULE BY MOUTH ACTIVE ONCE A DAY FOR PROSTATE. TAKE AT THE SAME TIME EACH DAY WITH FOOD. Non-VA Medications Status 1) Non-VA DIPHENHYDRAMINE HCL 25MG CAP 25MG MOUTH EVERY ACTIVE 6 HOURS NEEDED 2) Non-VA FOLIC ACID 1MG TAB 1MG MOUTH ONCE A DAY ACTIVE 13 Total Medications Compared newly ordered medications and medication changes to active medications and non-VA medications, and then reviewed medications with patient and/or caregiver. All discrepancies noted and reconciled. Patients, or caregivers, was provided with reconciled medications list and advised to provide to all non VA providers. Potential adverse reactions of new medications were discussed with the patient. Allergies: PENICILLIN, PANTOPRAZOLE PE: Vital signs: none EXAM: Speech is slow, requires effort for word finding. Some slurring of words at times. Labs: none per COVID. Last lab from [facility] 08/06/19. Reminders: P:Outpt Medication Reconciliation: MEDICATION RECONCILIATION I have reviewed all medications the patient is taking with the patient and/or caregiver. This includes the Local Active VA prescriptions, Remote Active VA prescriptions, Non-VA Medications, recently VA prescriptions (90-180 days), recently discontinued VA prescriptions (90-180 days) and pending medication orders including over the counter and supplemental medications. I have made changes on the Active Outpatient Medication List and updated the Non-VA Medication List as appropriate. Patient was educated on the need to maintain a current medication list. Copy of medication list given to patient and/or caregiver. Patient verbalizes understanding: yes. P:Test Results Notification: Not Applicable P:Fall Evaluation: Circumstances of the fall: none, some imbalance Diagnostic Plan/Therapeutic Recommendations: Other: no injury P:Chronic Opioid Therapy: Based on prescription records, this has been identified as a patient on long-term opioid therapy: is prescribed long-term opioid therapy for chronic pain. Ongoing Pain Monitorin. Analgesia Average pain score in the past week (0 is "no pain", 10 is "the worst pain that can be imagined" - PCP alerted to pain score greater than or equal to 4): Pain Score = 7 (I have very intense pain, difficult to think, sleep and hard to function) Reported site of pain: knees, shoulders, left hand Description of pain: ache to sharp 2. Activities of Daily Living Enjoyment of Life: Interference of pain with his/her enjoyment of life in the past week (0-Does not interfere, 10-Completely interferes): Enjoyment of life = 8 General Activity: Interference of pain with his/her general activity in the past week (0-Does not interfere, 10-Completely interferes): General Activity = 8 3. Adverse Effects [place] reports no side effects with current opioid therapy. 4. Adherence to Treatment Plan [place] is compliant with non opioid treatment modalities has consented to ongoing drug testing as part of the treatment plan? Yes Urine drug screen has been completed within the last 6 months? No, will be ordered and notified State Rx Drug Monitoring No State Rx Drug Monitoring note found in the patient chart. EKG done within the last year for Methadone patients? N/A Additional absolute or relative contraindications identified: The does NOT meet any of the above absolute or relative contraindications Opioid Informed Consent Cohort: Computed Finding: [facility]-Progress Note 10/12/2016@09:00 value - CONSENT FOR LONG-TERM OPIOIDS FOR PAIN; Author: KJ POTTER Assessment/Plan: 1. Rheumatoid arthritis: Next [place] [facility] a ppt 12/03/19. Continue methotrexate tabs weekly. Prednisone has been decreased to 2mg/day. Hydrocodone 10/325 prn, 2- 3x/day, depends on level of activity. 2. right shoulder pain/strain: 10/25/18 [facility], received joint injection. Can repeat as needed. Vet did not respond/schedule [facility] PT as ordered. In past, vet has refused PT "It makes it hurt too bad." 3. COPD/Dyspnea/abnormal CT chest findin gs: 08/13/18 consult w/ [facility] declined by vet. 10/25/18 [facility] also declined by vet. Vet declines PULM consult again today. CT 08/01/18, 3 month repeat 10/25/18. Scheduled for annual LDCT 10/27/19 locally. States he does not want to repeat PFTs due to near syncopal episodes. Continue Symbicort 160/4.5 BID and albuterol inhaler prn. PET scan 11/09/15. Nebulized albuterol prn. 4. Chronic Knee Pain Bilateral: No longe r followed by [facility] Ortho Dr Guerrero, completed PT. TO [facility] 08/21/17, received bilat knee joint inj. Hydrocodone 10/325 1 tab tid prn. Opiate consent 09/17 01/01. [facility] 09/24/19. ALF 04/02/19. 5. insomnia: nortriptyline 20mg/hs 6. hx near syncope: 05/02/18 MRI brain s table 7. Parkinson's: [facility] Consult 11/24/2019-05/22/2020 ALLEGRA HOWE, next appt 11/24/19. Carbidopa 25/levodopa 100mg 2 tabs 5x/day. Vet increased gabapentin to 300mg 5x/day, takes w/ Sinemet dose. Increasing difficulties. 8. TIA: Plavix 75mg/day (started by Dr Toshia marie). Vet states he DCd ASA daily because he is taking Plavix. MRI 12/09/14 1-yr recheck, stable findings. Mild intermittent dysarthria. Repeat US carotids negative 02/05/14, Venous doppler negative for DVT 02/05/14. 9. chronic back pain: xrays of l/s and t horacic spine 08/27/13, revealed osteoporosis. Bone density 12/23/13 osteopenia 10. Restless legs/chronic leg pain: Cont inues gabapentin 300mg 5x/day. Requip 1mg/hs. 11. Tobacco use: quit smoking August 2016 ! 12. GERD: failed trial of Pepcid. Side e ffects with pantoprazole. Omeprazole daily, to co-admin with Plavix. 13. Seasonal Allergies nos: no exacerbat ion; takes otc guaifenesin 14. Colon polyps: colonoscopy 09/16/12, re peat 10 yrs 15. chronic depression/stress: Vet self- DCd zoloft 50mg/day, gradually tapered off RX. States no depression "I just want to know what is going on with my health and what is happening to me." Continues nortriptyline 20mg/hs. Declines BH or MH. 16. Chest pain: cardiac cath 01/06/14 at [facility] negative for blockage, see [facility] info. Had stress test 12/15/13, cardiology follow up 12/23/13. Seen by cardiology 03/26/14 and DCd from clinic. Per [facility] NS, echo and holter monitor obtained to r/o arrhythmia as cause of left-sided weakness. 2 D echo 08/04/15 EF 60-65%, mild diastolic dysfunction. Holter monitor essentially neg. 17. bilateral hearing loss: hearing aids 18. BPH: continue flomax daily 19. obstructive sleep apnea: unable to t olerate CPAP, declines to re-try [place] is involved in treatment decisions, options are discussed. Medications are reviewed, along with pros and cons and alternatives. Questions are encouraged and answered. Instructed to seek emergency medical care if necessary at nearest local facility, or call 911. pc 30 minutes+ Orders: 1. schedule non-fast lab at [place] 12/03/19: lipid, cmp, cbc, tsh, psa, UA, ALF, sed rate, c reactive protein, B12, folate, iron total, tibc, iron sat, ferritin, and Vit D 2. schedule appt to follow at [facility] /sofya/ KJ BAIG Signed: 10/17/2019 15:37 Receipt Acknowledged By: 10/17/2019 15:49 /sofya/ VERONICA SAAVEDRA * AWAITING SIGNATURE * MARTIN SHULTZ,KJ [facility]
--- OUTSIDE RECORDS SUMMARY | 2019-12-04 21:58 | XMS REPORT | Encounter Summary ---
Author Author [facility] CARLOS sweeney Organization Department of [facility] Address [address] [place] [id number] Phone Unavailable Care Team Providers Care Assembler Garment Form Name Role Phone TARIQKOURTNEY PCP Unavailable Insurance [...] PLAN G MEDICARE SUPPLEMENT Dec PLAN G [id number] [phone] ROSALINACARLOS PATIENT MEDICARE (WNR) MEDICARE (M) PART A Dec 16, 2014 PART A [id number] ROSALINACARLOS PATIENT MEDICARE (WNR) MEDICARE (M) PART B Dec 16, 2014 PART B [id number] CARLOS ROMANO PATIENT MEDICO DENTAL INSURANCE DENTAL VISIONHEARING Dec 16, 2014 DENTAL VISIONHEAR [id number] [phone] CARLOS ROMANO PATIENT Selected Encounter This section includes the information on record at [place] for the Encounter. Date/Time Encounter Type Encounter Description Reason Provider Source November 06, 2019 02:01 PM Outpatient Encounter PRIMARY CARE/MEDICINE JENNIFER LINDSEY [facility] IHE Encounter Template Text not used by PR Assessments - Encounter Diagnoses No Data Provided for This Section Plan of Treatment: Future Appointments (+ 6 months) and Future Tests (+/- 45 day s) The Plan of Treatment section includes future care activities for the patient fr om all [place] treatment facilities. This section includes future appointments and fu ture orders which are active, pending or scheduled. Future Appointments This section includes appointments that were scheduled t o occur 6 months from the date of the Encounter, up to a maximum of 20 appointme nts. The data comes from all [facility]. Appointment Date/Time Appointment Type Appointment Facili ty Name Nov 20, 2019 05:00 PM AMBULATORY - MEDICINE [facility] Nov 24, 2019 11:20 AM AMBULATORY - NONE [facility] [place] Dec 02, 2019 10:30 AM AMBULATORY - NONE [facility] [place] Dec 03, 2019 12:30 PM AMBULATORY - NONE [facility] PopeJose [facility] Dec 04, 2019 10:45 AM AMBULATORY - MEDICINE [facility] Dec 10, 2019 01:30 PM AMBULATORY - MEDICINE [facility] Jan 06, 2020 10:30 AM AMBULATORY - MEDICINE [facility] Active, Pending, and Scheduled Orders This [...] the Encounter. The data comes from all [facility]. Test Date/Time Test Type Test Details Facility Name Dec 04, 2019 11:10 AM Laboratory - Chemistry Order ERYTHROCY TE SEDIMENTATION RATE 5 ML LAVENDER TOP BLOOD [facility] Dec 04, 2019 11:10 AM Laboratory - Chemistry Order IRON-TOTAL SS T GEL SERUM SP [facility] Dec 04, 2019 11:10 AM Laboratory - Chemistry Order IRON/TIBC SST GEL SERUM SP [facility] Surgical Procedures: All associated to the encounter No Data Provided for This Section Lab Results: +/- 30 days of the encounter This section includes the Chemistry and Hematology Lab R esults on record with PR for the patient. Radiology Reports and Pathology Report s are provided separately, in subsequent sections. Lab Results This section contains the Chemistry/Hematology Results juan t were resulted 30 days before or 30 days after the date of the Encounter. Date/Time Source Result Type Result - Unit Interpretation Reference Range Comment Dec 04, 2019 11:10 AM [facility] FERRITIN Specimen Type: SERUM No comment entered. FERRITIN 6 ng/mL L 22-275 Dec 04, 2019 11:10 AM [facility] LIPID PROFILE(HDL,TRIG ,CHOL,LDL) Specimen Type: PLASMA No comment entered. CHOLESTEROL 75 mg/dL 0-200 TRIGS 38 mg/dL 0-150 HDL-CHOLESTEROL 34 mg/dL L >40 LDL (CALC) 33 mg/dL 0-99.9 Dec 04, 2019 11:10 AM [facility] TSH Specimen Type: SERUM No comment entered. TSH 1.51 uIU/mL 0.47-5.00 Dec 04, 2019 11:10 AM [facility] PROSTATIC SPECIFIC ANT IGEN(TOTAL) Specimen Type: SERUM No comment entered. PROSTATIC SPECIFIC ANTIGEN(TOTAL) 1.68 ng/mL 0-4 Dec 04, 2019 11:10 AM [facility] VITAMIN D (25-OH) Specimen Type: SERUM No comment entered. VITAMIN D (25-OH) 36.4 ng/mL 30.0-96.0 Dec 04, 2019 11:10 AM [facility] FOLATE Specimen Type: SERUM No comment entered. FOLATE >40.0 ng/mL H 7.0-20.0 Dec 04, 2019 11:10 AM [facility] VITAMIN B12 Specimen Type: SERUM No comment entered. VITAMIN B12 491 pg/mL 213-816 Dec 04, 2019 11:10 AM [facility] C-REACTIVE PROTEIN Specimen Type: SERUM No comment entered. C-REACTIVE PROTEIN 9.77 mg/dL H 0.0-0.5 Dec 04, 2019 11:10 AM [facility] COMPREHENSIVE METABOLI C PANEL Specimen Type: [...] Dec 04, 2019 11:10 AM [facility]UE MORE[facility]ON [facility] CBC & DIFF Specimen Type: BLOOD [...] Adverse Reactions (ADR s) on record with PR for the patient. The data comes from a ll [place] treatment facilities. It does not list Allergies/ADRs that were removed or entered in error. Some allergies/ADRs may be reported in t he Immunization section. Allergen Event Date Event Type Reaction(s) Severity Source PANTOPRAZOLE Oct 01, 2018 Propensity to adverse reactions to drug (disorder) Eruption [facility] PENICILLIN Jul 17, 2012 Propensity to adverse reactions to drug (disorder) Peripheral edema [facility] Medications: VA dispensed (-15 months) and Non-VA Documented (Obtained Outside V A) Section Date Range: 1) prescriptions processed by a VA pharmacy in the last 15 m ont, and 2) all medications recorded in the PR medical record as "non-VA medic ations". Pharmacy terms refer to PR pharmacy's work on prescriptions. VA patient s are advised to take their medications as instructed by their health care team. The data comes from all [place] treatment facilities. Glossary of Pharmacy Terms:Active = A prescription that can be filled at the local [place] pharmacy.Active: On Hold = An active prescription that will not be filled until pharmacy resolves the issue.Active: Susp = An active prescription that is not scheduled to be filled yet.Clinic Order = A medication received during a visit to a PR clinic or emergency department (currently not available).Discontinued [...] other providers that was filled outside the [place]. Or, it may be an over the [...] FOR INHALATION ONCE 1 Nov 16, 2018 [id number] October 17, 2018 KOURTNEY DANIELSON [facility] ALBUTEROL SO4 90MCG/ACTUAT (CFC-F) INHL,ORAL,6.7GM Active INHALE 2 PUFFS BY ORAL INHALATION FOUR TIMES A DAY NEEDED - RINSE MOUTHPIECE FREQUENTLY TO PREVENT CLOGGING 1 Apr 24, 2020 [id number] October 18, 2019 KOURTNEY DANIELSON [facility] ALBUTEROL SO4 90MCG/ACTUAT (CFC-F) INHL,ORAL,6.7GM Discontin ued INHALE 2 PUFFS BY ORAL INHALATION FOUR TIMES A DAY NEEDED - RINSE MOUTHPIECE FREQUENTLY TO PREVENT CLOGGING 2 Apr 24, 2020 [id number] Apr 24, 2019 KOURTNEY DANIELSON [facility] BUDESONIDE 160MCG/FORMOTEROL FUM 4.5MCG/SPRAY INHL,ORAL,10.2 GM Active INHALE 2 PUFFS BY ORAL INHALATION TWO TIMES A DAY FOR BREATHING. SHAKE WELL. RINSE MOUTH AND SPIT AFTER EACH USE. 2 Apr 24, 2020 [id number] October 17, 2019 KOURTNEY JOSHI [facility] CALCIUM 500MG (CA CARBONATE-1.25GM) TAB Active: Susp TAKE ONE TABLET BY MOUTH TWO TIMES A DAY 180 Nov 20, 2020 [id number] Jan 09, 2020 KOURTNEY DANIELSON [facility] CALCIUM 500MG (CA CARBONATE-1.25GM) TAB Discontinued TAKE ONE TABLET BY MOUTH TWO TIMES A DAY 180 Jan 08, 2020 [id number] October 21, 2019 KOURTNEY DANIELSON [facility] [place] CALCIUM 500MG (CA CARBONATE-1.25GM) TAB Discontinued TAKE ONE TABLET BY MOUTH TWO TIMES A DAY 180 Dec 29, 2018 [id number] Oct 01, 2018 NASH KULKARNI [facility] CARBIDOPA 25MG/LEVODOPA 100MG TAB Active TAKE 2 TABLETS BY MOUTH FOUR TIMES A DAY FOR PARKINSON'S DISEASE. DO NOT TAKE WITH FOOD. 240 Nov 24, 2020 [id number] Nov 27, 2019 ALLEGRA HOWE [facility] [place] CARBIDOPA 25MG/LEVODOPA 100MG TAB Discontinued TAKE T WO TABLETS BY MOUTH FIVE TIMES DAILY FOR PARKINSON'S DISEASE. DO NOT TAKE WITH FOOD. 600 Jul 02, 2020 [id number] Nov 19, 2019 [facility] [place] CARBIDOPA 25MG/LEVODOPA 100MG TAB Discontinued TAKE 2 TABLETS BY MOUTH FIVE TIMES DAILY FOR PARKINSON'S DISEASE. DO NOT TAKE WITH FOOD. 300 Jun 30, 2020 [id number] Jul 01, 2019 [facility] CARBIDOPA 25MG/LEVODOPA 100MG TAB Discontinued TAKE 2 TABLETS BY MOUTH FOUR TIMES A DAY FOR PARKINSON'S DISEASE. DO NOT TAKE WITH FOOD. 240 Jun 24, 2020 [id number] Jun 26, 2019 [facility] CARBIDOPA 25MG/LEVODOPA 100MG TAB Discontinued TAKE 2 TABLETS BY MOUTH FOUR TIMES A DAY FOR PARKINSON'S DISEASE. DO NOT TAKE WITH FOOD. 240 Dec 25, 2019 [id number] May 15, [address] [facility] CARBIDOPA 25MG/LEVODOPA 100MG TAB Discontinued TAKE 2 TABLETS BY MOUTH FOUR TIMES A DAY FOR PARKINSON'S DISEASE. DO NOT TAKE WITH FOOD. 240 Jun 07, 2019 [id number] Nov 18, 2018 [facility] CHOLECALCIFEROL 25MCG (1,000UNIT) TAB Active: Susp TA KE TWO TABLETS BY MOUTH ONCE A DAY FOR VITAMIN D DEFICIENCY 200 Nov 20, 2020 [id number] Dec 172019 [facility] CHOLECALCIFEROL 25MCG (1,000UNIT) TAB Discontinued TA KE TWO TABLETS BY MOUTH ONCE A DAY FOR VITAMIN D DEFICIENCY 200 Dec 25, [id number] [facility]LE[facility] 25MCG (1,000UNIT) TAB Discontinued TA KE TWO TABLETS BY MOUTH ONCE A DAY FOR VITAMIN D DEFICIENCY 200 Oct 10, 2018 [id number] Aug 172018 [facility] CLOPIDOGREL BISULFATE 75MG TAB Active: Susp TAKE ONE TABLET BY MOUTH ONCE A DAY TO PREVENT BLOOD CLOTS 90 Apr 24, 2020 [id number] Dec 19, 2019 [facility] CLOPIDOGREL BISULFATE 75MG TAB Discontinued TAKE ONE TABLET BY MOUTH ONCE A DAY TO PREVENT BLOOD CLOTS 90 Jun 01, 2019 [id number] Mar 13, 2019 [facility] DIPHENHYDRAM[facility] 25MG CAP Non-VA TAKE 1 CAPSULE BY MOUTH EVERY 6 HOURS NEEDED Non-VA Documented by: KOURTNEY DANIELSON nted at: [facility] FLUDROCORTISONE ACETATE 0.1MG TAB Active TAKE ONE TABLET BY M OUTH ONCE A DAY 90 Nov 19, 2020 [id number] Nov 20, [address] [facility] [place] FOLIC ACID 1MG TAB Non- VA TAKE ONE TABLET BY MOUTH ONCE A DAY N on-VA Documented by: KOURTNEY DANIELSON nted at: [facility] GABAPENTIN 300MG CAP Active TAKE 1 CAPSULE BY M OUTH 5 TIMES A DAY FOR PAIN AND TREMORS. 300 October 17, 2020 [id number] October 18, 2019 TARIQKOURTNEY [facility] GABAPENTIN 300MG CAP Discontinued TAKE ONE CAPSULE BY MOUTH FOUR TIMES A DAY FOR PAIN AND TREMORS. 240 Jan 08, 2020 [id number] Oct 14, 2019 [facility] [place] GABAPENTIN 300MG CAP Discontinued TAKE ONE CAPSULE BY MOUTH FOUR TIMES A DAY FOR PAIN AND TREMORS. 240 Mar 08, 2019 [id number] Jan 07, 2019 [facility] [place] HYDROCODONE 10MG/ACETAMINOPHEN 325MG TAB [...] ALL MEDS 90 Sep 17, 2 020 [id number] Sep 04, 2019 [facility] [place] HYDROCODONE 10MG/ACETAMINOPHEN 325MG TAB Discontinued TAKE ONE TABLET BY MOUTH THREE TIMES A DAY NEEDED FOR PAIN CAUTION: DO NOT EXCEED 4000MG/DAY TOTAL OF ACETAMINOPHEN (APAP) FROM ALL MEDS 90 Jul 26, 2019 [id number] Jun 26, 2019 [facility] [place] HYDROCODONE 10MG/ACETAMINOPHEN 325MG TAB Discontinued TAKE ONE TABLET BY MOUTH THREE TIMES A DAY NEEDED FOR PAIN CAUTION: DO NOT EXCEED 4000MG/DAY TOTAL OF ACETAMINOPHEN (APAP) FROM ALL MEDS 90 Jun 27, 2019 [id number] May 29, 2019 KOURTNEY DANIELSON [facility] [place] [facility] HYDROCODONE 10MG/ACETAMINOPHEN 325MG TAB Discontinued TAKE ONE TABLET BY MOUTH THREE TIMES A DAY NEEDED FOR PAIN CAUTION: DO NOT EXCEED 4000MG/DAY TOTAL OF ACETAMINOPHEN (APAP) FROM ALL MEDS 90 May 08, 2019 [id number] Apr 08, 2019 [facility] [place] HYDROCODONE 10MG/ACETAMINOPHEN 325MG TAB Discontinued TAKE ONE TABLET BY MOUTH THREE TIMES A DAY NEEDED FOR PAIN CAUTION: DO NOT EXCEED 4000MG/DAY TOTAL OF ACETAMINOPHEN (APAP) FROM ALL MEDS 90 Mar 28, 2019 [id number] Feb 26, 2019 [facility] [place] HYDROCODONE 10MG/ACETAMINOPHEN 325MG TAB Discontinued TAKE ONE TABLET BY MOUTH THREE TIMES A DAY NEEDED FOR PAIN CAUTION: DO NOT EXCEED 4000MG/DAY TOTAL OF ACETAMINOPHEN (APAP) FROM ALL MEDS 90 Feb 06, 2019 [id number] Jan 07, 2019 [facility]RAYDEN [facility] [place] HYDROCODONE 10MG/ACETAMINOPHEN 325MG TAB Discontinued TAKE ONE TABLET BY MOUTH THREE TIMES A DAY NEEDED FOR PAIN CAUTION: DO NOT EXCEED 4000MG/DAY TOTAL OF ACETAMINOPHEN (APAP) FROM ALL MEDS 90 Dec 05, 2018 [id number] November 05, 2018 [facility] [place] HYDROCODONE 10MG/ACETAMINOPHEN 325MG TAB Discontinued TAKE ONE TABLET BY MOUTH THREE TIMES A DAY NEEDED FOR PAIN CAUTION: DO NOT EXCEED 4000MG/DAY TOTAL OF ACETAMINOPHEN (APAP) FROM ALL MEDS 90 October 25, 2018 [id number] Sep 25, 2018 [facility]DEN [facility] [place] HYDROCODONE 10MG/ACETAMINOPHEN 325MG TAB TAKE ONE TABLET (10/325MG) BY MOUTH THREE TIMES A DAY NEEDED FOR PAIN CAUTION: DO NOT EXCEED 4000MG/DAY TOTAL OF ACETAMINOPHEN (APAP) FROM ALL MEDS 90 November 16, 2019 [id number] October 18, 2019 KOURTNEY DANIELSON [facility] METHOTREXATE NA 2.5MG TAB Active TAKE SEVEN TABLETS BY MOUTH EVERY WEEK October 17, 2020 [id number] November 04, 2019 [facility] METHOTREXATE NA 2.5MG TAB Discontinued TAKE SEVEN TABLETS BY MOUTH EVERY WEEK 90 May 09, 2020 [id number] Aug 16, 2019 NASH KULKARNI [facility] METHOTREXATE NA 2.5MG TAB Discontinued TAKE SEVEN TABLETS BY MOUTH EVERY WEEK 90 Aug 04, 2019 [id number] Feb 22, 2019 JASONYOU [facility] [place] NORTRIPTYLINE HCL 10MG CAP Active TAKE 2 CAPSULES BY MO UTH AT BEDTIME NEEDED 120 Apr 02, 2020 [id number] Nov 20, 2019 [facility] [place] NORTRIPTYLINE HCL 10MG CAP Discontinued TAKE 2 CAPSUL ES BY MOUTH AT BEDTIME NEEDED 120 Mar 20, 2019 [id number] Jan 23, 2019 [facility] OMEPRAZOLE 20MG CAP,EC Active TAKE 1 CAPSULE BY MOUTH EVERY MORNING TO LOWER STOMACH ACID. TAKE 30 MINUTES PRIOR TO FOOD. 90 October 17, 2020 [id number] October 21, 2019 [facility] OMEPRAZOLE 20MG CAP,EC Discontinued TAKE 1 CAPSULE BY MOUTH EVERY MORNING TO LOWER STOMACH ACID. TAKE 30 MINUTES PRIOR TO FOOD. 90 Oct 02, 2019 [id number] Aug 02, 2019 [facility] [place] PREDNISONE 1MG TAB Discontinued TAKE THREE TABLETS B Y MOUTH ONCE A DAY FOR INFLAMMATION AND IMMUNE RESPONSE. TAKE WITH FOOD OR MILK. 270 Fe b 2019 [id number] Apr 24, 2019 [facility] PREDNISONE 1MG TAB Discontinued TAKE FOUR TABLETS BY MOUTH ONCE A D AY 360 Apr 22, 2019 [id number] Jan 24, 2019 BLUE DAVIES [facility] [place] PREDNISONE 1MG TAB Discontinued TAKE FOUR TABLETS BY MOUTH ONCE A D AY 360 Dec 29, 2018 [id number] Oct 01, 2018 NASH KULKARNI V [facility] PREDNISONE 1MG TAB TAKE THREE TABLETS B Y MOUTH ONCE A DAY FOR INFLAMMATION AND IMMUNE RESPONSE. TAKE WITH FOOD OR MILK. 270 Ap r 2019 [id number] Jul 13, 2019 [facility] [place] [facility] PREDNISONE 5MG TAB Discontinued TAKE ONE TABLET BY MOUTH ONCE A DAY WITH FOOD 60 Aug 01, 2019 [id number] Sep 25, 2018 KOURTNEY DANIELSON [facility] [place] [facility] ROPINIROLE HCL 1MG TAB Active TAKE ONE TABLET BY MOUTH AT BED TIME 90 October 17, 2020 [id number] Nov 25, 2019 KOURTNEY DANIELSON [facility] ROPINIROLE HCL 1MG TAB Discontinued TAKE ONE TABLET BY MOUTH AT BED TIME 90 Dec 05, 2019 [id number] Sep 03, 2019 KRYSTAL DEJESUS [facility] [place] ROPINIROLE HCL 1MG TAB Discontinued TAKE ONE TABLET BY MOUTH AT BED TIME 90 Dec 13, 2018 [id number] Sep 12, 2018 [facility] [place] [facility] TAMSULOSIN HCL 0.4MG CAP Active: Susp TAKE 1 CAPSULE BY MOUTH ONCE A DAY FOR PROSTATE. TAKE AT THE SAME TIME EACH DAY WITH FOOD. 90 Sep 30 1 [id number] Dec 20, 2019 TARIQKOURTNEY SMITH [facility] [place] TAMSULOSIN HCL 0.4MG CAP Discontinued TAKE 1 CAPSULE BY MOUTH ONCE A DAY FOR PROSTATE. TAKE AT THE SAME TIME EACH DAY WITH FOOD. 90 Sep 12 0 [id number] Jun 24, 2019 TEOLIS [facility] [place] [facility] Problems (Conditions): All historical and current Section Date Range: From patient's date of to the date document was create d. This section includes a list of Problems (Conditions) know n to [facility] for the patient. It includes both active and inacti ve problems (conditions). The data comes from all [place] treatment facilities. Problem Status Problem Code Date of Onset Date of Resolution Comm ent(s) Provider Source Abnormal radiologic density Active [id number] KOURTNEY WALKER [facility] [place] [facility] Allergic rhinitis Active 20802222 LADY SALAZAR [facility] [place] [facility] Anemia Active 767041943 [facility] [place] [facility] Chest pain (SNOMED CT 05283240) Active 786.50 [facility] [place] Chondrocalcinosis Active [id number] YOU GOMEZ [facility] [place] [facility] Chronic obstructive lung disease Active 64352940 [facility] [place] [facility] Coronary artery disease Active 49751206 Angella LINDSEY [facility] [place] [facility] Cough Active 59944578 LADY SALAZAR [facility] [place] Cough (SNOMED CT 80619850) Active 786.2 KOURTNEY BARRON [facility] [place] [facility] Dysarthria (SNOMED CT 4146295) Active 784.51 M KOURTNEY WONG [facility] [place] [facility] Dyspnea (SNOMED CT 687167135) Active 786.09 KOURTNEY BARKSDALE [facility] [place] Eruption due to drug Active 15864805 Abdiaziz DANIELSON TORY [facility] [place] [facility] Gastroesophageal reflux disease Active 548304524 KOURTNEY DANIELSON [facility] [place] [facility] Hallux valgus AND bunion Active 902150141 ALEXANDRO DEISY Dangelo [facility] [place] [facility] Joint pain (SNOMED CT 61629514) Active 719.40 DEISY CONTRERAS [facility] [place] [facility] Joint swelling (SNOMED CT 689199316) Active 719.00 KOURTNEY DANIELSON [facility] [place] [facility] Knee pain Active 15411064 JENNIFER LINDSEY [facility] [place] [facility] Muscle weakness (SNOMED CT 57904349) Active 728.87 KOURTNEY DANIELSON [facility] [place] [facility] Neuropathy Active 041844553 KOURTNEY DANIELSON RN [facility] [place] Osteoarthritis Active 715.36 DYAN SERVIN [facility] [place] [facility] Parkinson's disease Active 66957219 ETHAN DANIELSON [facility] [place] [facility] Peripheral Neuropathy Active 356.9 DASARAJU,P URUSHOTHAMA V [facility] [place] [facility] Personal History of Exposure to Agent Leake Active V15.89 DIANEANDRÉSDEISY Royce [facility] [place] [facility] Polyp of colon (SNOMED CT 40684732) Active 211.3 TARIQKOURTNEY SMITH [facility] [place] [facility] Restless legs Active 89370704 PATRICK WHITE [facility] [place] Rheumatoid arthritis Active 04678505 Abdiaziz DANIELSON TORY [facility] [place] [facility] Screening, Malignancy Active V76.89 LISSETH TOLEDO [facility] [place] [facility] Sleep apnea Active 07554419 KOURTNEY DANIELSON RN [facility] [place] Synovial cyst of popliteal space (SNOMED CT 91286540) Active 727.51 KOURTNEY DANIELSON [facility] [place] Tobacco dependence in remission Active 299610961 KOURTNEY DANIELSON [facility] [place] Tobacco use Active 182009096 JENNIFER LINDSEY [facility] [place] Tremor Active 97810074 JENNIFER LINDSEY K S [facility] [place] Unresolved Active 34899998 JENNIFER LINDSEY N [facility] [place] Unresolved Active 31797176 JENNIFER LINDSEY N [facility] [place] Radiology Reports: +/- 30 days of the encounter No Data Provided for This Section Pathology Reports: +/- 30 days of the encounter No Data Provided for This Section Encounter Notes: All associated encounter notes This section contains the clinical notes associated to the Encounter. Date/Time Encounter Note(s) Provider Source November 06, 2019 02:01 PM PRIMARY CARE SECURE MESSAGIN G: DEAN TITLE: EK-PRIMARY CARE SECURE MESSAGING STANDARD TITLE: PRIMARY CARE SECURE MESSAGING DATE OF NOTE: NOVEMBER 06, 2019@14:01:05 ENTRY DATE: NOVEMBER 06, 2019@14:01:06 AUTHOR: JENNIFER LINDSEY EXP COSIGNER: URGENCY: STATUS: COMPLETED EK-PRIMARY CARE SECURE MESSAGING Has ADDENDA ------Original Message ------ Sent: 11/06/2019 01:39 PM From: CARLOS ROMANO To: [facility], Samantha Summers [place] Subject: non va appointment Yesterday 11/04 my daughter noticed i was acting odd, she took me to where she 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 He took my bp in a seated position it was 86/50, we talked bout if i had any other light headed issues , ( i talked to you about that over the ph one) he took my bp again in a standing position it was 56/20. long story short she made an appoimtment with a local dr for next Sun, just wanyed you to know ------Original Message ------ Sent: 11/06/2019 03:00 PM From: JENNIFER LINDSEY To: CARLOS ROMANO Subject: non va appointment Thanks for the info Forwarding to Kourtney /sofya/ JENNIFER LINDSEY LPN Signed: 11/06/2019 14:01 Receipt Acknowledged By: 11/10/2019 15:21 /sofya/ KOURTNEY BAIG 11/10/2019 ADDENDUM STATUS: COMPLETED Further evaluation is needed for blood pressures like those. Let us know what is determined. In the meantime, be sure you are drinking adequate fluids. Keep track/journal fluid intake over the past few days to take with you to that appt. Also, the carbidopa/levodopa does have potential side effect of orthostatic hypotension, meaning blood pressure can decrease upon standing. Be sure to take you current med list with you to that appt. Included are the vital signs fr5om your last appt at [facility]: VITALS: DATE/TIME TEMP PULSE RESP BP PAIN WEIGHT PUL OX 04/24/19 @ 0924 96.8 76 20 122/68 7 182.5 Haley /sofya/ KOURTNEY BAIG Signed: 11/10/2019 15:25 Receipt Acknowledged By: * AWAITING SIGNATURE * SATHYA LINDSEY * AWAITING SIGNATURE * JENNIFER LINDSEY KATHY J [facility]
--- OUTSIDE RECORDS SUMMARY | 2019-12-04 21:58 | XMS REPORT | Encounter Summary ---
Author Author Department [facility] CARLOS sweeney Organization Department of [facility] Address [address] [place] [id number] Phone Unavailable Care Team Providers Care Head Librarian Name Role Phone KOURTNEY DANIELSON PCP Unavailable [...] PLAN G MEDICARE SUPPLEMENT Dec PLAN G [id number] [phone] CARLOS REYNOLDS PATIENT MEDICARE (WNR) MEDICARE (M) PART A Dec 16, 2014 PART A [id number] CARLOS REYNOLDS PATIENT MEDICARE (WNR) MEDICARE (M) PART B Dec 16, 2014 PART B [id number] CARLOS REYNOLDS PATIENT MEDICO DENTAL INSURANCE DENTAL VISIONHEARING Dec 16, 2014 DENTAL VISIONHEAR [id number] [phone] CARLOS REYNOLDS PATIENT Selected Encounter This section includes the information on record at [place] for the Encounter. Date/Time Encounter Type Encounter Description Reason Provider Source Nov 20, 2019 05:00 PM Outpatient Encounter TELEPHONE PRIMARY CAR E ICD-10-CM G20. Parkinson's disease with Provider Comments: Parkinson's disease (SCT [id number]) KOURTNEY DANIELSON [facility] IHE Encounter Template Text not used by CO Assessments - Encounter Diagnoses This section includes the primary and secondary diag noses documented for the Encounter. Date/Time Primary/Secondary Diagnosis Diagnosis Name Provider Source Nov 20, 2019 05:00 PM PRIMARY Parkinson's disease ALICJA LLANOS [facility] Nov 20, 2019 05:00 PM PRIMARY Parkinson's disease ALICJA LLANOS [facility] Nov 20, 2019 05:00 PM SECONDARY Chronic obstructiv e pulmonary disease, unspecified VIET,WHENJOHANNE Herndon [facility] Nov 20, 2019 05:00 PM SECONDARY Chronic obstructiv e pulmonary disease, unspecified VIET,WHENMETHODIST JENNIE EDMUNDSON Nov 20, 2019 05:00 PM SECONDARY Other nonspecific abnormal finding of lung field VIET,[facility] Nov 20, 2019 05:00 PM SECONDARY Other nonspecific abnormal finding of lung field VIET,[facility] Nov 20, 2019 05:00 PM SECONDARY Pain in unspecified knee VIET, [facility] Nov 20, 2019 05:00 PM SECONDARY Pain in unspecified knee VIET, [facility] Nov 20, 2019 05:00 PM SECONDARY Rheumatoid arthritis, unsp ecified VIET,[facility] Nov 20, 2019 05:00 PM SECONDARY Rheumatoid arthritis, unsp ecified VIET,[facility] Plan of Treatment: Future Appointments (+ 6 months) and Future Tests (+/- 45 day s) The Plan of Treatment section includes future care activities for the patient fr om all [place] treatment facilities. This section includes future appointments and fu ture orders which are active, pending or scheduled. Future Appointments This section includes appointments that were scheduled t o occur 6 months from the date of the Encounter, up to a maximum of 20 appointme nts. The data comes from all [place] treatment facilities. Appointment Date/Time Appointment Type Appointment Facili ty Name Nov 24, 2019 11:20 AM AMBULATORY - NONE [facility] [place] Dec 02, 2019 10:30 AM AMBULATORY - NONE [facility] [place] Dec 03, 2019 12:30 PM AMBULATORY - NONE [facility] Dec 04, 2019 10:45 AM AMBULATORY - MEDICINE [facility] Dec 10, 2019 01:30 PM AMBULATORY - MEDICINE [facility] Jan 06, 2020 10:30 AM AMBULATORY - MEDICINE [facility] [place] Active, Pending, and Scheduled [...] the Encounter. The data comes from all [place] treatment facilities. Test Date/Time Test Type Test Details Facility Name Dec 04, 2019 11:10 AM Laboratory - Chemistry Order ERYTHROCY TE SEDIMENTATION RATE 5 ML LAVENDER TOP BLOOD SP [facility] Dec 04, 2019 11:10 AM Laboratory - Chemistry Order IRON-TOTAL SS T GEL SERUM SP [facility] Dec 04, 2019 11:10 AM Laboratory - Chemistry Order IRON/TIBC SST GEL SERUM SP [facility] Surgical Procedures: All associated to the [...] Dec 04, 2019 11:10 AM [facility] FERRITIN Specimen Type: SERUM No comment entered. FERRITIN 6 ng/mL L 22-275 Dec 04, 2019 11:10 AM [facility] LIPID PROFILE(HDL,TRIG ,CHOL,LDL) Specimen Type: PLASMA No comment entered. CHOLESTEROL 75 mg/dL 0-200 TRIGS 38 mg/dL 0-150 HDL-CHOLESTEROL 34 mg/dL L >40 LDL (CALC) 33 mg/dL 0-99.9 Dec 04, 2019 11:10 AM [facility] TSH Specimen Type: SERUM No comment entered. TSH 1.51 uIU/mL 0.47-5.00 Dec 04, 2019 11:10 AM [facility] PROSTATIC SPECIFIC ANT IGEN(TOTAL) Specimen Type: SERUM No comment entered. PROSTATIC SPECIFIC ANTIGEN(TOTAL) 1.68 ng/mL 0-4 Dec 04, 2019 11:10 AM [facility] VITAMIN D (25-OH) Specimen Type: SERUM No comment entered. VITAMIN D (25-OH) 36.4 ng/mL 30.0-96.0 Dec 04, 2019 11:10 AM [facility] FOLATE Specimen Type: SERUM No comment entered. FOLATE >40.0 ng/mL H 7.0-20.0 Dec 04, 2019 11:10 [facility] Specimen Type: SERUM No comment entered. VITAMIN B12 491 pg/mL 213-816 Dec 04, 2019 11:10 AM [facility] C-REACTIVE PROTEIN Specimen Type: SERUM No comment entered. C-REACTIVE PROTEIN 9.77 mg/dL H 0.0-0.5 Dec 04, 2019 11:10 AM [facility] COMPREHENSIVE METABOLI C PANEL Specimen Type: [...] Dec 04, 2019 11:10 AM [facility] CBC & DIFF Specimen Type: BLOOD Comment: PANIC VALUE CALLED AND READ BACK by Kourtney Danielson @ 2497 WBC 8.08 K/cmm 3.60-11.20 RBC 1.83 M/ul [...] and tobacco- related health factors from the CO facility where the Encounter took place. Current Smoking Status This section includes the most current smoking, or tobacco -related health factor, from the CO facility where the Encounter took place. Date/Time Current Smoking Status Comment Facility October 17, 2018 05:26 PM CO-TOBACCO QUIT 1 TO < 5 YRS [facility] Tobacco Use History This section includes a history of the smoking, or tobacco -related health factors, that were collected on or before the date of the Encoun ter. The data comes from the CO facility where the Encounter took place. Date/Time Smoking Status/Tobacco Use Comment [facility] October 17, 2018 05:26 PM VA-TOBACCO QUIT 1 TO < 5 YRS [facility] Nov 26, 2017 01:35 PM QUIT TOBACCO IN THE LAST 12 MONTHS F ORT [facility] Nov 26, 2017 01:35 PM TOBACCO CESSATION REFERRAL DECLINED [facility] Nov 26, 2017 01:35 PM TOBACCO MEDS OFFERED BUT DECLINED FO RT [facility] Nov 26, 2017 01:35 PM TOBACCO USER OFFERED MEDS [facility] Feb 27, 2017 12:58 PM QUIT TOBACCO IN THE LAST 12 MONTHS F ORT [facility] Feb 27, 2017 12:58 PM TOBACCO CESSATION REFERRAL DECLINED [facility] Feb 27, 2017 12:58 PM TOBACCO MEDS OFFERED BUT DECLINED FO [facility] Feb 27, 2017 12:58 PM TOBACCO USER OFFERED MEDS [facility] May 02, 2016 09:04 AM CURRENT NON-TOBACCO USER [facility] Sep 29, 2015 07:48 AM CURRENT TOBACCO USER [facility] Sep 29, 2015 07:48 AM TOBACCO OFFERED STOP SMOKING CLINIC [facility] Mar 19, 2015 07:54 AM CURRENT TOBACCO USER [facility] Mar 19, 2015 07:54 AM TOBACCO OFFERED STOP SMOKING CLINIC [facility] Jan 02, 2014 08:44 AM CURRENT NON-TOBACCO USER [facility] Jul 30, 2013 10:01 AM CURRENT TOBACCO USER [facility] Jul 17, 2012 11:09 AM CURRENT TOBACCO USER [facility] Advance Directives: All historical and current No Data Provided for This Section Allergies and Adverse Reactions (ADRs): All historical and current Section Date Range: From patient's date of to the date document was create d. This section includes Allergies and Adverse Reactions (ADR s) on record with VA for the patient. The data comes from a ll CO treatment facilities. It does not list Allergies/ADRs that were removed or entered in error. Some allergies/ADRs may be reported in t he Immunization section. Allergen Event Date Event Type Reaction(s) Severity Source PANTOPRAZOLE Oct 01, 2018 Propensity to adverse reactions to drug (disorder) Eruption [facility] 15 [place] Jul 17, 2012 Propensity to adverse reactions to drug (disorder) Peripheral edema [facility] 15 Medications: VA dispensed (-15 months) and Non-VA Documented (Obtained Outside A) Section Date Range: 1) prescriptions processed by a VA pharmacy in the last 15 m [facility], and 2) all medications recorded in the CO medical record as "non-VA medic ations". Pharmacy terms refer to CO pharmacy's work on prescriptions. VA patient s are advised to take their medications as instructed by their health care team. The data comes from all [place] treatment facilities. Glossary of Pharmacy Terms:Active = A prescription that can be filled at the local CO pharmacy.Active: On Hold = An active prescription that will not be filled until pharmacy resolves the issue.Active: Susp = An active prescription that is not scheduled to be filled yet.Clinic Order = A medication received during a visit to a CO clinic or emergency department (currently not available).Discontinued = A prescription stopped by a CO provider. It is no longer available to be filled. = A prescription which is too old to fill. This does not refer to the expiration date of the medication in the container. Non-VA = A medication that came from someplace other than a CO pharmacy. This may be a prescription from either the CO or other providers that was filled outside the CO. Or, it may be an over the [...] FOR INHALATION ONCE 1 Nov 16, 2018 [id number] October 17, 2018 KOURTNEY DANIELSON [facility] ALBUTEROL SO4 90MCG/ACTUAT (CFC-F) INHL,ORAL,6.7GM Active INHALE 2 PUFFS BY ORAL INHALATION FOUR TIMES A DAY NEEDED - RINSE MOUTHPIECE FREQUENTLY TO PREVENT CLOGGING 1 Apr 24, 2020 [id number] October 18, 2019 KOURTNEY DANIELSON [facility] ALBUTEROL SO4 90MCG/ACTUAT (CFC-F) INHL,ORAL,6.7GM Discontin ued INHALE 2 PUFFS BY ORAL INHALATION FOUR TIMES A DAY NEEDED - RINSE MOUTHPIECE FREQUENTLY TO PREVENT CLOGGING 2 Apr 24, 2020 [id number] Apr 24, 2019 KOURTNEY DANIELSON [facility] BUDESONIDE 160MCG/FORMOTEROL FUM 4.5MCG/SPRAY INHL,ORAL,10.2 GM Active INHALE 2 PUFFS BY ORAL INHALATION TWO TIMES A DAY FOR BREATHING. SHAKE WELL. RINSE MOUTH AND SPIT AFTER EACH USE. 2 Apr 24, 2020 [id number] October 17, 2019 KOURTNEY JOSHI [facility] CALCIUM 500MG (CA CARBONATE-1.25GM) TAB Active: Susp TAKE ONE TABLET BY MOUTH TWO TIMES A DAY 180 Nov 20, 2020 [id number] Jan 09, 2020 KOURTNEY DANIELSON [facility] CALCIUM 500MG (CA CARBONATE-1.25GM) TAB Discontinued TAKE ONE TABLET BY MOUTH TWO TIMES A DAY 180 Jan 08, 2020 [id number] October 21, 2019 TARIQ,DANA [facility] [place] CALCIUM 500MG (CA CARBONATE-1.25GM) TAB Discontinued TAKE ONE TABLET BY MOUTH TWO TIMES A DAY 180 Dec 29, 2018 [id number] Oct 01, 2018 NASH KULKARNI ToshiaJose NEYDAChad [facility] CARBIDOPA 25MG/LEVODOPA 100MG TAB Active TAKE 2 TABLETS BY MOUTH FOUR TIMES A DAY FOR PARKINSON'S DISEASE. DO NOT TAKE WITH FOOD. 240 Nov 24, 2020 [id number] Nov 27, 2019 [facility] [place] CARBIDOPA 25MG/LEVODOPA 100MG TAB Discontinued TAKE T WO TABLETS BY MOUTH FIVE TIMES DAILY FOR PARKINSON'S DISEASE. DO NOT TAKE WITH FOOD. 600 Jul 02, 2020 [id number] Nov 19, 2019 [facility] [place] CARBIDOPA 25MG/LEVODOPA 100MG TAB Discontinued TAKE 2 TABLETS BY MOUTH FIVE TIMES DAILY FOR PARKINSON'S DISEASE. DO NOT TAKE WITH FOOD. 300 Jun 30, 2020 [id number] Jul 01, 2019 [facility] [place] CARBIDOPA 25MG/LEVODOPA 100MG TAB Discontinued TAKE 2 TABLETS BY MOUTH FOUR TIMES A DAY FOR PARKINSON'S DISEASE. DO NOT TAKE WITH FOOD. 240 Jun 24, 2020 [id number] Jun 26, 2019 [facility] [place] [facility] CARBIDOPA 25MG/LEVODOPA 100MG TAB Discontinued TAKE 2 TABLETS BY MOUTH FOUR TIMES A DAY FOR PARKINSON'S DISEASE. DO NOT TAKE WITH FOOD. 240 Dec 25, 2019 [id number] May 15, 2019 [facility] [place] CARBIDOPA 25MG/LEVODOPA 100MG TAB Discontinued TAKE 2 TABLETS BY MOUTH FOUR TIMES A DAY FOR PARKINSON'S DISEASE. DO NOT TAKE WITH FOOD. 240 Jun 07, 2019 [id number] Nov 18, 2018 [facility] [place] [facility] CHOLECALCIFEROL 25MCG (1,000UNIT) TAB Active: Susp TA KE TWO TABLETS BY MOUTH ONCE A DAY FOR VITAMIN D DEFICIENCY 200 Nov 20, 2020 [id number] Dec 172019 [facility] CHOLECALCIFEROL 25MCG (1,000UNIT) TAB Discontinued TA KE TWO TABLETS BY MOUTH ONCE A DAY FOR VITAMIN D DEFICIENCY 200 Dec 25, 2019 [id number] October TARIQ[facility] [place] CHOLECALCIFEROL 25MCG (1,000UNIT) TAB Discontinued TA KE TWO TABLETS BY MOUTH ONCE A DAY FOR VITAMIN D DEFICIENCY 200 Oct 10, 2018 [id number] Aug 172018 [facility] CLOPIDOGREL BISULFATE 75MG TAB Active: Susp TAKE ONE TABLET BY MOUTH ONCE A DAY TO PREVENT BLOOD CLOTS 90 Apr 24, 2020 [id number] Dec 19, 2019 [facility] CLOPIDOGREL BISULFATE 75MG TAB Discontinued TAKE ONE TABLET BY MOUTH ONCE A DAY TO PREVENT BLOOD CLOTS 90 Jun 01, 2019 [id number] Mar 13, 2019 [facility] [place] DIPHENHYDRAMINE HCL 25MG CAP Non-VA TAKE 1 CAPSULE BY MOUTH EVERY 6 HOURS NEEDED Non-VA Documented by: KOURTNEY DANIELSON nted at: [facility] FLUDROCORTISONE ACETATE 0.1MG TAB Active TAKE ONE TABLET BY M OUTH ONCE A DAY 90 Nov 19, 2020 [id number] Nov 20, 2019 [facility] [place] FOLIC ACID 1MG TAB Non- VA TAKE ONE TABLET BY MOUTH ONCE A DAY N on-VA Documented by: KOURTNEY DANIELSON nted at: [facility] GABAPENTIN 300MG CAP Active TAKE 1 CAPSULE BY M OUTH 5 TIMES A DAY FOR PAIN AND TREMORS. 300 October 17, 2020 [id number] October 18, 2019 [facility] GABAP[facility]IN 300MG CAP Discontinued TAKE ONE CAPSULE BY MOUTH FOUR TIMES A DAY FOR PAIN AND TREMORS. 240 Jan 08, 2020 [id number] Oct 14, 2019 [facility] [place] GABAPENTIN 300MG CAP Discontinued TAKE ONE CAPSULE BY MOUTH FOUR TIMES A DAY FOR PAIN AND TREMORS. 240 Mar 08, 2019 [id number] Jan 07, 2019 [facility] [place] HYDROCODONE 10MG/ACETAMINOPHEN 325MG TAB Active TAKE ONE TABLET (10/325MG) BY MOUTH THREE TIMES A DAY NEEDED FOR PAIN CAUTION: DO NOT EXCEED 4000MG/DAY TOTAL OF ACETAMINOPHEN (APAP) FROM ALL MEDS 90 Dec 20, 2019 [id number] Nov 21, 2019 TARIQKOURTNEY SMITH [facility] HYDROCODONE 10MG/ACETAMINOPHEN 325MG TAB Discontinued TAKE ONE TABLET (10/325MG) BY MOUTH THREE TIMES A DAY NEEDED FOR PAIN CAUTION: DO NOT EXCEED 4000MG/DAY TOTAL OF ACETAMINOPHEN (APAP) FROM ALL MEDS 90 Sep 17, 2 020 [id number] Sep 04, 2019 [facility] [place] HYDROCODONE 10MG/ACETAMINOPHEN 325MG TAB Discontinued TAKE ONE TABLET BY MOUTH THREE TIMES A DAY NEEDED FOR PAIN CAUTION: DO NOT EXCEED 4000MG/DAY TOTAL OF ACETAMINOPHEN (APAP) FROM ALL MEDS 90 Jul 26, 2019 [id number] Jun 26, 2019 [facility] [place] HYDROCODONE 10MG/ACETAMINOPHEN 325MG TAB Discontinued TAKE ONE TABLET BY MOUTH THREE TIMES A DAY NEEDED FOR PAIN CAUTION: DO NOT EXCEED 4000MG/DAY TOTAL OF ACETAMINOPHEN (APAP) FROM ALL MEDS 90 Jun 27, 2019 [id number] May 29, 2019 [facility] [place] HYDROCODONE 10MG/ACETAMINOPHEN 325MG TAB Discontinued TAKE ONE TABLET BY MOUTH THREE TIMES A DAY NEEDED FOR PAIN CAUTION: DO NOT EXCEED 4000MG/DAY TOTAL OF ACETAMINOPHEN (APAP) FROM ALL MEDS 90 May 08, 2019 [id number] Apr 08, 2019 [facility] [place] HYDROCODONE 10MG/ACETAMINOPHEN 325MG TAB Discontinued TAKE ONE TABLET BY MOUTH THREE TIMES A DAY NEEDED FOR PAIN CAUTION: DO NOT EXCEED 4000MG/DAY TOTAL OF ACETAMINOPHEN (APAP) FROM ALL MEDS 90 Mar 28, 2019 [id number] Feb 26, 2019 [facility] [place] HYDROCODONE 10MG/ACETAMINOPHEN 325MG TAB Discontinued TAKE ONE TABLET BY MOUTH THREE TIMES A DAY NEEDED FOR PAIN CAUTION: DO NOT EXCEED 4000MG/DAY TOTAL OF ACETAMINOPHEN (APAP) FROM ALL MEDS 90 Feb 06, 2019 [id number] Jan 07, 2019 [facility] [place] HYDROCODONE 10MG/ACETAMINOPHEN 325MG TAB Discontinued TAKE ONE TABLET BY MOUTH THREE TIMES A DAY NEEDED FOR PAIN CAUTION: DO NOT EXCEED 4000MG/DAY TOTAL OF ACETAMINOPHEN (APAP) FROM ALL MEDS 90 Dec 05, 2018 [id number] November 05, 2018 [facility] [place] HYDROCODONE 10MG/ACETAMINOPHEN 325MG TAB Discontinued TAKE ONE TABLET BY MOUTH THREE TIMES A DAY NEEDED FOR PAIN CAUTION: DO NOT EXCEED 4000MG/DAY TOTAL OF ACETAMINOPHEN (APAP) FROM ALL MEDS 90 October 25, 2018 [id number] Sep 25, 2018 [facility] [place] HYDROCODONE 10MG/ACETAMINOPHEN 325MG TAB TAKE ONE TABLET (10/325MG) BY MOUTH THREE TIMES A DAY NEEDED FOR PAIN CAUTION: DO NOT EXCEED 4000MG/DAY TOTAL OF ACETAMINOPHEN (APAP) FROM ALL MEDS 90 November 16, 2019 [id number] October 18, 2019 [facility] METHOTREXATE NA 2.5MG TAB Active TAKE SEVEN TABLETS BY MOUTH EVERY WEEK 90 October 17, 2020 [id number] November 04, 2019 [facility] METHOTREXATE NA 2.5MG TAB Discontinued TAKE SEVEN TABLETS BY MOUTH EVERY WEEK 90 May 09, 2020 [id number] Aug 16, 2019 NASH KULKARNI [facility] METHOTREXATE NA 2.5MG TAB Discontinued TAKE SEVEN TABLETS BY MOUTH EVERY WEEK 90 Aug 04, 2019 [id number] Feb 22, 2019 YOU GOMEZ [facility] [place] [facility] NORTRIPTYLINE HCL 10MG CAP Active TAKE 2 CAPSULES BY MO UTH AT BEDTIME NEEDED 120 Apr 02, 2020 [id number] Nov 20, 2019 [facility] [place] NORTRIPTYLINE HCL 10MG CAP Discontinued TAKE 2 CAPSUL ES BY MOUTH AT BEDTIME NEEDED 120 Mar 20, 2019 [id number] Jan 23, 2019 [facility] OMEPRAZOLE 20MG CAP,EC Active TAKE 1 CAPSULE BY MOUTH EVERY MORNING TO LOWER STOMACH ACID. TAKE 30 MINUTES PRIOR TO FOOD. 90 October 17, 2020 [id number] October 21, 2019 [facility] OMEPRAZOLE 20MG CAP,EC Discontinued TAKE 1 CAPSULE BY MOUTH EVERY MORNING TO LOWER STOMACH ACID. TAKE 30 MINUTES PRIOR TO FOOD. 90 Oct 02, 2019 [id number] Aug 02, 2019 TARIQ[facility] [place] PREDNISONE 1MG TAB Discontinued TAKE THREE TABLETS B Y MOUTH ONCE A DAY FOR INFLAMMATION AND IMMUNE RESPONSE. TAKE WITH FOOD OR MILK. 270 Fe b 2019 [id number] Apr 24, 2019 [facility] PREDNISONE 1MG TAB Discontinued TAKE FOUR TABLETS BY MOUTH ONCE A D AY 360 Apr 22, 2019 [id number] Jan 24, 2019 [facility] [place] PREDNISONE 1MG TAB Discontinued TAKE FOUR TABLETS BY MOUTH ONCE A D AY 360 Dec 29, 2018 [id number] Oct 01, 2018 NASH KULKARNI V [facility] PREDNISONE 1MG TAB TAKE THREE TABLETS B Y MOUTH ONCE A DAY FOR INFLAMMATION AND IMMUNE RESPONSE. TAKE WITH FOOD OR MILK. 270 Ap r 2019 [id number] Jul 13, 2019 [facility] [place] PREDNISONE 5MG TAB Discontinued TAKE ONE TABLET BY MOUTH ONCE A DAY WITH FOOD 60 Aug 01, 2019 [id number] Sep 25, 2018 [facility] [place] ROPINIROLE HCL 1MG TAB Active TAKE ONE TABLET BY MOUTH AT BED TIME 90 October 17, 2020 [id number] Nov 25, 2019 [facility] ROPINIROLE HCL 1MG TAB Discontinued TAKE ONE TABLET BY MOUTH AT BED TIME 90 Dec 05, 2019 [id number] Sep 03, 2019 KRYSTAL DEJESUS [facility] [place] [facility] ROPINIROLE HCL 1MG TAB Discontinued TAKE ONE TABLET BY MOUTH AT BED TIME 90 Dec 13, 2018 [id number] Sep 12, 2018 [facility] [place] TAMSULOSIN HCL 0.4MG CAP Active: Susp TAKE 1 CAPSULE BY MOUTH ONCE A DAY FOR PROSTATE. TAKE AT THE SAME TIME EACH DAY WITH FOOD. 90 Sep 30 1 [id number] Dec 20, 2019 [facility] [place] TAMSULOSIN HCL 0.4MG CAP Discontinued TAKE 1 CAPSULE BY MOUTH ONCE A DAY FOR PROSTATE. TAKE AT THE SAME TIME EACH DAY WITH FOOD. 90 Sep 12 0 [id number] Jun 24, 2019 LIS BRUCE [facility] [place] [facility] Problems (Conditions): All historical and current Section Date Range: From patient's date of to the date document was create d. This section includes a list of Problems (Conditions) know n to VA for the patient. It includes both active and inacti ve problems (conditions). The data comes from all [place] treatment facilities. Problem Status Problem Code Date of Onset Date of Resolution Comm ent(s) Provider Source Abnormal radiologic density Active [id number] KOURTNEY HWANG [facility] Allergic rhinitis Active [id number] LADY SALAZAR [facility] Anemia Active [id number] KOURTNEY DANIELSON [facility] Chest pain (SNOMED CT 87592385) Active 786.50 KOURTNEY DANIELSON [facility] Chondrocalcinosis Active [id number] JASONYOU SOLIS [facility] Chronic obstructive lung disease Active 89055744 KOURTNEY DANIELSON [facility] Coronary artery disease Active 47567390 Angella LINDSEY [facility] [place] Cough Active 20675318 LADY SALAZAR S [facility] [place] Cough (SNOMED CT 81824298) Active 786.2 KOURTNEY BARRON [facility] [place] [facility] Dysarthria (SNOMED CT 7875751) Active 784.51 M CORRINEENNEKOURTNEY Ortega [facility] [place] [facility] Dyspnea (SNOMED CT 495860521) Active 786.09 KOURTNEY BARKSDALE [facility] [place] [facility] Eruption due to drug Active 44199269 TARIQAbdiaziz SPEARS [facility] [place] Gastroesophageal reflux disease Active 929635019 KOURTNEY DANIELSON [facility] Hallux valgus AND bunion Active 644381011 HORSC HDEISY Royce [facility] Joint pain (SNOMED CT 57732490) Active 719.40 DEISY CONTRERAS Royce [facility] Joint swelling (SNOMED CT 143198178) Active 719.00 KOURTNEY DANIELSON [facility] Knee pain Active 32147085 JENNIFER LINDSEY [facility] Muscle weakness (SNOMED CT 22198072) Active 728.87 KOURTNEY DANIELSON [facility] Neuropathy Active [id number] [facility]OURTNEY [facility] [place] [facility] Osteoarthritis Active 715.36 DYAN SERVIN [facility] Parkinson's disease Active 26493109 ETHAN DANIELSON [facility] Peripheral Neuropathy Active 356.9 DASFlaquita FERRER URK[place]T [place] [facility] [place] [facility] Personal History of Exposure to Agent Lucas Active V15.89 DEISY CONTRERAS [facility] [place] [facility] Polyp of colon (SNOMED CT 97785420) Active 211.3 KOURTNEY DANIELSON [facility] Restless legs Active 02904141 ANDERERNIEPATRICK CRYSTAL TERN [facility] [place] Rheumatoid arthritis Active 91632466 Abdiaziz DANIELSON [facility] Screening, Malignancy Active V76.89 LISSETH TOLEDO [facility] [place] [facility] Sleep apnea Active 23377685 KOURTNEY DANIELSON RN [facility] [place] [facility] Synovial cyst of popliteal space (SNOMED CT 28417713) Active 727.51 KOURTNEY DANIELSON [facility] Tobacco dependence in remission Active [id number] KOURTNEY DANIELSON [facility] Tobacco use Active [id number] JENNIFER LINDSEY CAROLYN [facility] [place] [facility] Tremor Active 09939334 JENNIFER LINDSEY K S [facility] [place] [facility] Unresolved Active 10451359 JENNIFER LINDSEYER N [facility] [place] [facility] Unresolved Active 57410004 JENNIFER LINDSEY N [facility] [place] [facility] Radiology Reports: +/- 30 days of the encounter No Data Provided for This Section Pathology Reports: +/- 30 days of the encounter No Data Provided for This Section Encounter Notes: All associated encounter notes This section contains the clinical notes associated to the Encounter. Date/Time Encounter Note(s) Provider Source Nov 20, 2019 08:25 PM ADMINISTRATIVE NOTE: LOCAL TITLE: EK-NOTIFICATION OF TEST RESULTS BY PHONE STANDARD TITLE: ADMINISTRATIVE NOTE DATE OF NOTE: NOV 20, 2019@20:25 ENTRY DATE: NOV 20, 2019@20:25:51 AUTHOR: KOURTNEY DANIELSON EXP COSIGNER: URGENCY: STATUS: COMPLETED The following test results along with an appropriate management plan were discussed with patient by phone: Radiology: [facility] CT chest 10/27/19 Received from [facility] Dated: 10-27-2019 CT Chest Impression: 1. Changes throughout both lungs which a re likely due to sequelae of prior infection, and potentially a nontuberculous mycobacterial infection. There are 2 areas of spiculated nodularity associa momo with the areas of presumed postinfectious change, these are likely areas of nodular scarring. Recommend follows low-dose CT chest in 6 months to confirm stability. will place [facility] Radiology consult to repeat at later date. Copy to be mailed to vet. reviewed info requested on form received to be completed. Ling agrees to disclosure of info for his to be able to have [facility] to assist him when needed for transportation to appts or caregiving w/ dx Parkinson's. Forms: "complete your forms/ medical information" Associate Name: Emma Reynolds Associate WIN: [phone] Instructions to health care provider: The associate listed above has requested leave under the [place] to care for your patient. PLAN: WILL COMPLETE FORM AND MAIL TO VET Vet has appt next week w/ Dr Patel, tx Parkinson's. discussed that Sinemet has side effect of low bp, orthostatic hypotension. Vet to discuss at appt. 11/19/[address] Jessee MD a [facility] fludrocortisone 0.1 mg oral tab Si tab oral daily for 90 days Qty: 90 Refill: 3 --------- VET REQUESTS RENEW HYDROCODONE, last filled 10/18/19 It is documented that patient verbalized understanding of results and/or actions required? Yes 25 minutes plan/order: none - vet [place] labs scheduled at [place] 12/03/19 /sofya/ KOURTNEY BAIG Signed: 11/20/2019 22:34 Receipt Acknowledged By: * AWAITING SIGNATURE * VERONICA LLANOS,KOURTNEY [facility]
--- OUTSIDE RECORDS SUMMARY | 2019-12-04 21:58 | XMS REPORT | Encounter Summary ---
Author Author Department [facility] CARLOS sweeney Organization Department of [facility] Address [address] [place] [id number] Phone Unavailable Care Team Providers Care Pricing Analyst Name Role Phone TARIQKOURTNEY PCP Unavailable Insurance [...] PLAN G MEDICARE SUPPLEMENT Dec PLAN G [id number] [phone] ROSALINACARLOS PATIENT MEDICARE (WNR) MEDICARE (M) PART A Dec 16, 2014 PART A [id number] ROSALINACARLOS PATIENT MEDICARE (WNR) MEDICARE (M) PART B Dec 16, 2014 PART B [id number] CARLOS ROMANO PATIENT MEDICO DENTAL INSURANCE DENTAL VISIONHEARING Dec 16, 2014 DENTAL VISIONHEAR [id number] [phone] CARLOS ROMANO PATIENT Selected Encounter This section includes the information on record at [place] for the Encounter. Date/Time Encounter Type Encounter Description Reason Provider Source Sep 30, 2019 03:00 PM Outpatient Encounter PRIMARY CARE/MEDICINE JOSE FRANCISCO CHERRY [facility] IHE Encounter Template Text not used by [place] Assessments - Encounter Diagnoses No Data Provided [...] appointme nts. The data comes from all [facility]. Appointment Date/Time Appointment Type Appointment Facili ty Name October 17, 2019 09:00 AM AMBULATORY - MEDICINE INIC October 27, 2019 09:45 AM AMBULATORY - NONE [facility] [place] [facility] Nov 20, 2019 05:00 PM AMBULATORY - MEDICINE IN Nov 24, 2019 11:20 AM AMBULATORY - NONE [facility] Dec 02, 2019 10:30 AM AMBULATORY - NONE [facility] Dec 03, 2019 12:30 PM AMBULATORY - NONE [facility] Dec 04, 2019 10:45 AM AMBULATORY - MEDICINE IN Dec 10, 2019 01:30 PM AMBULATORY - MEDICINE [facility] Jan 06, 2020 10:30 AM AMBULATORY - MEDICINE IN Active, Pending, and Scheduled Orders This [...] the Encounter. The data comes from all [facility]. Test Date/Time Test Type Test Details Facility Name Sep 03, 2019 03:01 PM Consult Order [facility]- [facility] [id number] Cons Packaging Machine Supplies Distributor's Choice [facility] Surgical Procedures: All associated [...] Adverse Reactions (ADR s) on record with [place] for the patient. The data comes from a ll [place] treatment facilities. It does not list Allergies/ADRs that were removed or entered in error. Some allergies/ADRs may be reported in t he Immunization section. Allergen Event Date Event Type Reaction(s) Severity Source PANTOPRAZOLE Oct 01, 2018 Propensity to adverse reactions to drug (disorder) Eruption [facility] 15 PENICILLIN Jul 17, 2012 Propensity to adverse reactions to drug (disorder) Peripheral edema [facility] 15 Medications: VA dispensed (-15 months) and Non-VA Documented (Obtained Outside A) Section Date Range: 1) prescriptions processed by a VA pharmacy in the last 15 m ont, and 2) all medications recorded in the [place] medical record as "non-VA medic ations". Pharmacy terms refer to [place] pharmacy's work on prescriptions. VA patient s [...] FOR INHALATION ONCE 1 Nov 16, 2018 [id number] October 17, 2018 KOURTNEY POTTER [facility] ALBUTEROL SO4 90MCG/ACTUAT (CFC-F) INHL,ORAL,6.7GM Active INHALE 2 PUFFS BY ORAL INHALATION FOUR TIMES A DAY NEEDED - RINSE MOUTHPIECE FREQUENTLY TO PREVENT CLOGGING 1 Apr 24, 2020 [id number] October 18, 2019 KOURTNEY POTTER [facility] ALBUTEROL SO4 90MCG/ACTUAT (CFC-F) INHL,ORAL,6.7GM Discontin ued INHALE 2 PUFFS BY ORAL INHALATION FOUR TIMES A DAY NEEDED - RINSE MOUTHPIECE FREQUENTLY TO PREVENT CLOGGING 2 Apr 24, 2020 [id number] Apr 24, 2019 KOURTNEY POTTER [facility] BUDESONIDE 160MCG/FORMOTEROL FUM 4.5MCG/SPRAY INHL,ORAL,10.2 GM Active INHALE 2 PUFFS BY ORAL INHALATION TWO TIMES A DAY FOR BREATHING. SHAKE WELL. RINSE MOUTH AND SPIT AFTER EACH USE. 2 Apr 24, 2020 [id number] October 17, 2019 KOURTNEY JOSHI [facility] CALCIUM 500MG (CA CARBONATE-1.25GM) TAB Active: Susp TAKE ONE TABLET BY MOUTH TWO TIMES A DAY 180 Nov 20, 2020 [id number] Jan 09, 2020 KOURTNEY POTTER [facility] CALCIUM 500MG (CA CARBONATE-1.25GM) TAB Discontinued TAKE ONE TABLET BY MOUTH TWO TIMES A DAY 180 Jan 08, 2020 [id number] October 21, 2019 KOURTNEY POTTER [facility] [place] [facility] CALCIUM 500MG (CA CARBONATE-1.25GM) TAB Discontinued TAKE ONE TABLET BY MOUTH TWO TIMES A DAY 180 Dec 29, 2018 [id number] Oct 01, 2018 NASH KULKARNI [facility] CARBIDOPA 25MG/LEVODOPA 100MG TAB Active TAKE 2 TABLETS BY MOUTH FOUR TIMES A DAY FOR PARKINSON'S DISEASE. DO NOT TAKE WITH FOOD. 240 Nov 24, 2020 [id number] Nov 27, 2019 ALLEGRA HOWE [facility] [place] [facility] CARBIDOPA 25MG/LEVODOPA 100MG TAB Discontinued TAKE T WO TABLETS BY MOUTH FIVE TIMES DAILY FOR PARKINSON'S DISEASE. DO NOT TAKE WITH FOOD. 600 Jul 02, 2020 [id number] Nov 19, 2019 [facility] CARBIDOPA 25MG/LEVODOPA 100MG TAB Discontinued TAKE 2 TABLETS BY MOUTH FIVE TIMES DAILY FOR PARKINSON'S DISEASE. DO NOT TAKE WITH FOOD. 300 Jun 30, 2020 [id number] Jul 01, 2019 [facility] CARBIDOPA 25MG/LEVODOPA 100MG TAB Discontinued TAKE 2 TABLETS BY MOUTH FOUR TIMES A DAY FOR PARKINSON'S DISEASE. DO NOT TAKE WITH FOOD. 240 Jun 24, 2020 [id number] Jun 26, 2019 [facility] CARBIDOPA 25MG/LEVODOPA 100MG TAB Discontinued TAKE 2 TABLETS BY MOUTH FOUR TIMES A DAY FOR PARKINSON'S DISEASE. DO NOT TAKE WITH FOOD. 240 Dec 25, 2019 [id number] May 15, 2019 [facility] CARBIDOPA 25MG/LEVODOPA 100MG TAB Discontinued TAKE 2 TABLETS BY MOUTH FOUR TIMES A DAY FOR PARKINSON'S DISEASE. DO NOT TAKE WITH FOOD. 240 Jun 07, 2019 [id number] Nov 18, 2018 [facility] [facility] CHOLECALCIFEROL 25MCG (1,000UNIT) TAB Active: Susp TA KE TWO TABLETS BY MOUTH ONCE A DAY FOR VITAMIN D DEFICIENCY 200 Nov 20, 2020 [id number] Dec 172019 [facility] CHOLECALCIFEROL 25MCG (1,000UNIT) TAB Discontinued TA KE TWO TABLETS BY MOUTH ONCE A DAY FOR VITAMIN D DEFICIENCY 200 Dec 25, 2019 [id number] October [facility] CHOLECALCIFEROL 25MCG (1,000UNIT) TAB Discontinued TA KE TWO TABLETS BY MOUTH ONCE A DAY FOR VITAMIN D DEFICIENCY 200 Oct 10, 2018 [id number] Aug 172018 [facility] CLOPIDOGREL BISULFATE 75MG TAB Active: Susp TAKE ONE TABLET BY MOUTH ONCE A DAY TO PREVENT BLOOD CLOTS 90 Apr 24, 2020 [id number] Dec 19, 2019 [facility] CLOPIDOGREL BISULFATE 75MG TAB Discontinued TAKE ONE TABLET BY MOUTH ONCE A DAY TO PREVENT BLOOD CLOTS 90 Jun 01, 2019 [id number] Mar 13, 2019 [facility] [place] [facility] DIPHENHYDRAMINE HCL 25MG CAP Non-VA TAKE 1 CAPSULE BY MOUTH EVERY 6 HOURS NEEDED Non-VA Documented by: KOURTNEY POTTER nted at: [facility] FLUDROCORTISONE ACETATE 0.1MG TAB Active TAKE ONE TABLET BY M OUTH ONCE A DAY 90 Nov 19, 2020 [id number] Nov 20, 2019 [facility] FOLIC ACID 1MG TAB Non- VA TAKE ONE TABLET BY MOUTH ONCE A DAY N on-VA Documented by: KOURTNEY POTTER nted at: [facility] GABAPENTIN 300MG CAP Active TAKE 1 CAPSULE BY M OUTH 5 TIMES A DAY FOR PAIN AND TREMORS. 300 October 17, 2020 [id number] October 18, 2019 [facility] GABAPENTIN 300MG CAP Discontinued TAKE ONE CAPSULE BY MOUTH FOUR TIMES A DAY FOR PAIN AND TREMORS. 240 Jan 08, 2020 [id number] Oct 14, 2019 [facility] GABAPENTIN 300MG CAP Discontinued TAKE ONE CAPSULE BY MOUTH FOUR TIMES A DAY FOR PAIN AND TREMORS. 240 Mar 08, 2019 [id number] Jan 07, 2019 [facility] [place] HYDROCODONE 10MG/ACETAMINOPHEN 325MG TAB Active TAKE ONE TABLET (10/325MG) BY MOUTH THREE TIMES A DAY NEEDED FOR PAIN CAUTION: DO NOT EXCEED 4000MG/DAY TOTAL OF ACETAMINOPHEN (APAP) FROM ALL MEDS 90 Dec 20, 2019 [id number] Nov 21, 2019 [facility] HYDROCODONE 10MG/ACETAMINOPHEN 325MG TAB Discontinued TAKE ONE TABLET (10/325MG) BY MOUTH THREE TIMES A DAY NEEDED FOR PAIN CAUTION: DO NOT EXCEED 4000MG/DAY TOTAL OF ACETAMINOPHEN (APAP) FROM ALL MEDS 90 Sep 17, 2 020 [id number] Sep 04, 2019 [facility] [place] [facility] HYDROCODONE 10MG/ACETAMINOPHEN 325MG TAB Discontinued TAKE ONE TABLET BY MOUTH THREE TIMES A DAY NEEDED FOR PAIN CAUTION: DO NOT EXCEED 4000MG/DAY TOTAL OF ACETAMINOPHEN (APAP) FROM ALL MEDS 90 Jul 26, 2019 [id number] Jun 26, 2019 [facility] [place] [facility] HYDROCODONE 10MG/ACETAMINOPHEN 325MG TAB Discontinued TAKE ONE TABLET BY MOUTH THREE TIMES A DAY NEEDED FOR PAIN CAUTION: DO NOT EXCEED 4000MG/DAY TOTAL OF ACETAMINOPHEN (APAP) FROM ALL MEDS 90 Jun 27, 2019 [id number] May 29, 2019 KOURTNEY POTTER [facility] HYDROCODONE 10MG/ACETAMINOPHEN 325MG TAB Discontinued TAKE ONE TABLET BY MOUTH THREE TIMES A DAY NEEDED FOR PAIN CAUTION: DO NOT EXCEED 4000MG/DAY TOTAL OF ACETAMINOPHEN (APAP) FROM ALL MEDS 90 May 08, 2019 [id number] Apr 08, 2019 [facility] [place] [facility] HYDROCODONE 10MG/ACETAMINOPHEN 325MG TAB Discontinued TAKE ONE TABLET BY MOUTH THREE TIMES A DAY NEEDED FOR PAIN CAUTION: DO NOT EXCEED 4000MG/DAY TOTAL OF ACETAMINOPHEN (APAP) FROM ALL MEDS 90 Mar 28, 2019 [id number] Feb 26, 2019 [facility] [place] [facility] HYDROCODONE 10MG/ACETAMINOPHEN 325MG TAB Discontinued TAKE ONE TABLET BY MOUTH THREE TIMES A DAY NEEDED FOR PAIN CAUTION: DO NOT EXCEED 4000MG/DAY TOTAL OF ACETAMINOPHEN (APAP) FROM ALL MEDS 90 Feb 06, 2019 [id number] Jan 07, 2019 KOURTNEY POTTER [facility] [place] [facility] HYDROCODONE 10MG/ACETAMINOPHEN 325MG TAB Discontinued TAKE ONE TABLET BY MOUTH THREE TIMES A DAY NEEDED FOR PAIN CAUTION: DO NOT EXCEED 4000MG/DAY TOTAL OF ACETAMINOPHEN (APAP) FROM ALL MEDS 90 Dec 05, 2018 [id number] November 05, 2018 [facility] [place] [facility] HYDROCODONE 10MG/ACETAMINOPHEN 325MG TAB Discontinued TAKE ONE TABLET BY MOUTH THREE TIMES A DAY NEEDED FOR PAIN CAUTION: DO NOT EXCEED 4000MG/DAY TOTAL OF ACETAMINOPHEN (APAP) FROM ALL MEDS 90 October 25, 2018 [id number] Sep 25, 2018 [facility] [place] [facility] HYDROCODONE 10MG/ACETAMINOPHEN 325MG TAB TAKE ONE TABLET (10/325MG) BY MOUTH THREE TIMES A DAY NEEDED FOR PAIN CAUTION: DO NOT EXCEED 4000MG/DAY TOTAL OF ACETAMINOPHEN (APAP) FROM ALL MEDS 90 November 16, 2019 [id number] October 18, 2019 TARIQKOURTNEY [facility] METHOTREXATE NA 2.5MG TAB Active TAKE SEVEN TABLETS BY MOUTH EVERY WEEK 90 October 17, 2020 [id number] November 04, 2019 [facility] METHOTREXATE NA 2.5MG TAB Discontinued TAKE SEVEN TABLETS BY MOUTH EVERY WEEK 90 May 09, 2020 [id number] Aug 16, 2019 NASH KULKARNI [facility] METHOTREXATE NA 2.5MG TAB Discontinued TAKE SEVEN TABLETS BY MOUTH EVERY WEEK 90 Aug 04, 2019 [id number] Feb 22, 2019 YOU GOMEZ [facility] [place] [facility] NORTRIPTYLINE HCL 10MG CAP Active TAKE 2 CAPSULES BY MO UTH AT BEDTIME NEEDED 120 Apr 02, 2020 [id number] Nov 20, 2019 [facility] [place] [facility] NORTRIPTYLINE HCL 10MG CAP Discontinued TAKE 2 CAPSUL ES BY MOUTH AT BEDTIME NEEDED 120 Mar 20, 2019 [id number] Jan 23, 2019 [facility] OMEPRAZOLE 20MG CAP,EC Active TAKE 1 CAPSULE BY MOUTH EVERY MORNING TO LOWER STOMACH ACID. TAKE 30 MINUTES PRIOR TO FOOD. 90 October 17, 2020 [id number] October 21, 2019 [facility] OMEPRAZOLE 20MG CAP,EC Discontinued TAKE 1 CAPSULE BY MOUTH EVERY MORNING TO LOWER STOMACH ACID. TAKE 30 MINUTES PRIOR TO FOOD. 90 Oct 02, 2019 [id number] Aug 02, 2019 [facility] PREDNISONE 1MG TAB Discontinued TAKE THREE TABLETS B Y MOUTH ONCE A DAY FOR INFLAMMATION AND IMMUNE RESPONSE. TAKE WITH FOOD OR MILK. 270 Fe 2019 [id number] Apr 24, 2019 [facility] PREDNISONE 1MG TAB Discontinued TAKE FOUR TABLETS BY MOUTH ONCE A D AY 360 Apr 22, 2019 [id number] Jan 24, 2019 [facility] [place] [facility] PREDNISONE 1MG TAB Discontinued TAKE FOUR TABLETS BY MOUTH ONCE A D AY 360 Dec 29, 2018 [id number] Oct 01, 2018 NASH KULKARNI V [facility] PREDNISONE 1MG TAB TAKE THREE TABLETS B Y MOUTH ONCE A DAY FOR INFLAMMATION AND IMMUNE RESPONSE. TAKE WITH FOOD OR MILK. 270 Ap r 2019 [id number] Jul 13, 2019 [facility] [facility] PREDNISONE 5MG TAB Discontinued TAKE ONE TABLET BY MOUTH ONCE A DAY WITH FOOD 60 Aug 01, 2019 [id number] Sep 25, 2018 KUORTNEY POTTER [facility] [place] [facility] ROPINIROLE HCL 1MG TAB Active TAKE ONE TABLET BY MOUTH AT BED TIME 90 October 17, 2020 [id number] Nov 25, 2019 TARIQ,DANA [facility] ROPINIROLE HCL 1MG TAB Discontinued TAKE ONE TABLET BY MOUTH AT BED TIME 90 Dec 05, 2019 [id number] Sep 03, 2019 KRYSTAL DEJESUS [facility] [place] [facility] ROPINIROLE HCL 1MG TAB Discontinued TAKE ONE TABLET BY MOUTH AT BED TIME 90 Dec 13, 2018 [id number] Sep 12, 2018 [facility] TAMSULOSIN HCL 0.4MG CAP Active: Susp TAKE 1 CAPSULE BY MOUTH ONCE A DAY FOR PROSTATE. TAKE AT THE SAME TIME EACH DAY WITH FOOD. 90 Sep 30 1 [id number] Dec 20, 2019 TARIQKOURTNEY SMITH [facility] [facility] TAMSULOSIN HCL 0.4MG CAP Discontinued TAKE 1 CAPSULE BY MOUTH ONCE A DAY FOR PROSTATE. TAKE AT THE SAME TIME EACH DAY WITH FOOD. 90 Sep 12 0 [id number] Jun 24, 2019 TEO,LIS [facility] Problems (Conditions): All historical [...] ent(s) Provider Source Abnormal radiologic density Active [id number] [facility] TYEKOURTNEY CHUNG [facility] Allergic rhinitis Active 00121229 LADY SALAZAR [facility] [place] [facility] Anemia Active 021654007 [facility] [place] [facility] Chest pain (SNOMED CT 47298956) Active 786.50 [facility] [place] [facility] Chondrocalcinosis Active 159831012 YOU GOMEZ [facility] [place] [facility] Chronic obstructive lung disease Active 26000706 [facility] [place] [facility] Coronary artery disease Active 00820627 Angella LINDSEY Toshia [facility] [place] [facility] Cough Active 22184547 LADY SALAZAR [facility] [place] [facility] Cough (SNOMED CT 58140023) Active 786.2 KOURTNEY BARRON [facility] [place] [facility] Dysarthria (SNOMED CT 0154217) Active 784.51 M KOURTNEY WONG [facility] [place] [facility] Dyspnea (SNOMED CT 175542087) Active 786.09 KOURTNEY BARKSDALE [facility] [place] [facility] Eruption due to drug Active 17898457 Abdiaziz POTTER TORY [facility] [place] [facility] Gastroesophageal reflux disease Active 817439555 KOURTNEY POTTER [facility] [place] [facility] Hallux valgus AND bunion Active 554042863 LAEXANDRO DangeloDEISY Crane [facility] [place] [facility] Joint pain (SNOMED CT 96319688) Active 719.40 DEISY CONTRERAS Royce [facility] [place] [facility] Joint swelling (SNOMED CT 829962434) Active 719.00 KOURTNEY POTTER [facility] [place] [facility] Knee pain Active 03526215 JENNIFER LINDSEY Toshia [facility] [place] [facility] Muscle weakness (SNOMED CT 69070485) Active 728.87 KOURTNEY POTTER [facility] [place] [facility] Neuropathy Active 844574415 KOURTNEY POTTER [facility] [place] [facility] Osteoarthritis Active 715.36 GARETH,DYAN W [facility] [place] [facility] Parkinson's disease Active 24993977 ETHAN POTTER [facility] [place] [facility] Peripheral Neuropathy Active 356.9 DASARAJU,P URUSHOTHAMA [facility] [place] [facility] Personal History of Exposure to Agent Overton Active V15.89 DEISY CONTRERAS Royce [facility] [place] [facility] Polyp of colon (SNOMED CT 75701223) Active 211.3 TARIQKOURTNEY SMITH [facility] [place] [facility] Restless legs Active 74166365 PATRICK WHITE [facility] [place] [facility] Rheumatoid arthritis Active 44722395 Abdiaziz POTTER [facility] [place] [facility] Screening, Malignancy Active V76.89 LISSETH TOLEDO [facility] [place] [facility] Sleep apnea Active 62741300 KOURTNEY POTTER MANDEEP [facility] [place] [facility] Synovial cyst of popliteal space (SNOMED CT 57251743) Active 727.51 KOURTNEY POTTER [facility] [place] [facility] Tobacco dependence in remission Active 750477888 KOURTNEY POTTER [facility] [place] [facility] Tobacco use Active 777375933 JENNIFER LINDSEY CAROLYN [facility] [place] [facility] Tremor Active 73339649 JENNIFER LINDSEY EAST[place] K S [facility] [place] [facility] Unresolved Active 28569030 JENNIFER LINDSEYER N [facility] [place] [facility] Unresolved Active 51939824 JENNIFER LINDSEYER N [facility] [place] [facility] Radiology Reports: +/- 30 days of the encounter No Data Provided for This Section Pathology Reports: +/- 30 days of the encounter No Data Provided for This Section Encounter Notes: All associated encounter notes This section contains the clinical notes associated to the Encounter. Date/Time Encounter Note(s) Provider Source Sep 30, 2019 03:00 PM PRIMARY CARE SECURE MESSAGIN G: [facility] TITLE[facility] SECURE MESSAGING STANDARD TITLE: PRIMARY CARE SECURE MESSAGING DATE OF NOTE: SEP 30, 2019@15:00:01 ENTRY DATE: SEP 30, 2019@15:00:02 AUTHOR: JOSE FRANCISCO CHERRY EXP COSIGNER: URGENCY: STATUS: COMPLETED ------Original Message ------ Sent: 09/30/2019 01:17 PM From: CARLOS ROMANO To: [facility], *[facility] Subject: Medication Inquiry please re order Tamsulosin, ------Original Message ------ Sent: 09/30/2019 03:59 PM From: JOSE FRANCISCO CHERRY To: CARLOS ROMANO Subject: Medication Inquiry Forwarding to [facility] Stain Maker /sofya/ JOSE FRANCISCO CHERRY Valderm Signed: 09/30/2019 15:00 Receipt Acknowledged By: * AWAITING SIGNATURE * KOURTNEY POTTER SHAUNA C [facility]
--- OUTSIDE RECORDS SUMMARY | 2019-12-04 21:59 | XMS REPORT | Encounter Summary ---
Author Author Department of [facility] CARLOS sweeney Organization Department of [facility] Address [address] [place] [id number] Phone Unavailable Care Team Providers Care Waterproof Bag Sewer Name Role Phone TARIQ KOURTNEY PCP Unavailable Insurance Providers: All historical and [...] PLAN G MEDICARE SUPPLEMENT Dec PLAN G [id number] [phone] ROSALINACARLOS PATIENT MEDICARE (WNR) MEDICARE (M) PART A Dec 16, 2014 PART A [id number] ROSALINACARLOS PATIENT MEDICARE (WNR) MEDICARE (M) PART B Dec 16, 2014 PART B [id number] CARLOS ROMANO PATIENT MEDICO DENTAL INSURANCE DENTAL VISIONHEARING Dec 16, 2014 DENTAL VISIONHEAR [id number] [phone] CARLOS ROMANO PATIENT Selected Encounter This section includes the information on record at [place] for the Encounter. Date/Time Encounter Type Encounter Description Reason Provider Source Aug 06, 2019 01:00 PM OFFICE/OUTPATIENT VISIT EST RHEUMATOLOGY/A RTHRITIS ICD-10-CM M06.09 Rheumatoid arthritis w/o rheumatoid factor, multiple sites with Provider Comments: Seronegative RA [facility] TANG [facility] IHE Encounter Template Text not used by [place] Assessments - Encounter Diagnoses This section includes the primary and secondary diag noses documented for the Encounter. Date/Time Primary/Secondary Diagnosis Diagnosis Name Provider Source Aug 06, 2019 04:01 PM PRIMARY Rheumatoid arthrit is w/o rheumatoid factor, multiple sites JESUS MULLER [facility] Aug 06, 2019 04:01 PM PRIMARY Rheumatoid arthrit is w/o rheumatoid factor, multiple sites JESUS MULLER [facility] Aug 06, 2019 04:01 PM SECONDARY Carpal tunnel syndrome, bi lateral upper limbs [facility] Aug 06, 2019 04:01 PM SECONDARY Carpal tunnel syndrome, bi lateral upper limbs [facility] Aug 06, 2019 04:01 PM SECONDARY Chronic obstructiv e pulmonary disease, unspecified [facility]U [facility] Aug 06, 2019 04:01 PM SECONDARY Chronic obstructiv e pulmonary disease, unspecified [facility] Aug 06, 2019 04:01 PM SECONDARY FDC (current) use of systemic steroids [facility] Aug 06, 2019 04:01 PM SECONDARY FDC (current) use of systemic steroids [facility] Aug 06, 2019 04:01 PM SECONDARY Other fpc (current) drug therapy [facility] Aug 06, 2019 04:01 PM SECONDARY Other extermination inspector (current) drug therapy [facility] Aug 06, 2019 04:01 PM SECONDARY Primary osteoarthritis, ri ght shoulder JESUS MULLER [facility] Aug 06, 2019 04:01 PM SECONDARY Primary osteoarthritis, ri ght shoulder JESUS MULLER [facility] Plan of Treatment: Future Appointments (+ 6 months) and Future Tests (+/- 45 day s) The Plan of Treatment section includes future care activities for the patient fr om all [place] treatment facilities. This section includes future appointments and fu ture orders which are active, pending or scheduled. Future Appointments This section includes appointments that were scheduled t o occur 6 months from the date of the Encounter, up to a maximum of 20 appointme nts. The data comes from all [place] treatment [facility]. Appointment Date/Time Appointment Type Appointment Facili ty Name October 17, 2019 09:00 AM AMBULATORY - MEDICINE [facility] October 27, 2019 09:45 AM AMBULATORY - NONE [facility] [place] [facility] Nov 20, 2019 05:00 PM AMBULATORY - MEDICINE [facility] Nov 24, 2019 11:20 AM AMBULATORY - NONE [facility] [place] [facility] Dec 02, 2019 10:30 AM AMBULATORY - NONE [facility] Dec 03, 2019 12:30 PM AMBULATORY - NONE [facility] Dec 04, 2019 10:45 AM AMBULATORY - MEDICINE [facility] Dec 10, 2019 01:30 PM AMBULATORY - MEDICINE [facility] Jan 06, 2020 10:30 AM AMBULATORY - MEDICINE [facility] IN Active, Pending, and [...] the Encounter. The data comes from all [place] treatment facilities. Test Date/Time Test Type Test Details Facility Name Aug 08, 2019 01:27 PM Consult Order TO-NEUROLOGY OUTPT -[id number] Cons Furnace Roaster's Choice [facility] [place] Sep 03, 2019 03:01 PM Consult Order COMMUNITY CARE-EK EYE OPTOMETRY-[id number] Cons Furnace Roaster's Choice [facility] DIV Surgical Procedures: All associated to the encounter No Data Provided for This Section Lab Results: +/- 30 days of the encounter This section includes the Chemistry and Hematology Lab R esults on record with [place] for the patient. Radiology Reports and Pathology Report s are provided separately, in subsequent sections. Lab Results This section contains the Chemistry/Hematology Results juan t were resulted 30 days before or 30 days after the date of the Encounter. Date/Time Source Result Type Result - Unit Interpretation Reference Range Comment Aug 06, 2019 12:27 PM [facility] CBC & DIFF Specimen Type: BLOOD No [...] Aug 06, 2019 12:27 PM [facility] COMPREHENSIVE METABOLI C PANEL Specimen Type: PLASMA [...] >60 Aug 06, 2019 12:27 PM [facility]-RE[facility] PR[facility] Specimen Type: SERUM No comment entered. C-REACTIVE PROTEIN 20.37 mg/dL H 0.0-0.5 Aug 06, 2019 12:27 PM [facility] ERYTHROCYTE SEDIMENTAT ION RATE Specimen Type: BLOOD No comment entered. ERYTHROCYTE SEDIMENTATION RATE 67 mm/hr H 0-20 Vital Signs: All taken on the encounter date This section contains inpatient and outpatient Vital Signs collected on the date of the Encounter. Date/Time Temperature Pulse Blood Pressure Respiratory Rate SP02 Pa in Height Weight Body Mass Index Source Aug 06, 2019 01:03 PM 98.7 F 91 /min 99/59 mm[Hg] 18 /min 93 % 6 7 1 in 176.3 lb 25 [facility] Immunizations: All administered on the encounter date [...] Adverse Reactions (ADR s) on record with [place] for the patient. The data comes from a ll [place] treatment facilities. It does not list Allergies/ADRs that were removed or entered in error. Some allergies/ADRs may be reported in t Immunization section. Allergen Event Date Event Type Reaction(s) Severity Source PANTOPRAZOLE Oct 01, 2018 Propensity to adverse reactions to drug (disorder) Eruption [facility] 15 PENICILLIN Jul 17, 2012 Propensity to adverse reactions to drug (disorder) Peripheral edema [facility] 15 Medications: VA dispensed (-15 months) and Non-VA Documented (Obtained Outside [facility]) Section Date Range: 1) prescriptions processed by a VA pharmacy in the last 15 m [facility], and 2) all medications recorded in the [place] medical record as "non-VA medic ations". Pharmacy terms refer to [place] pharmacy's work on prescriptions. VA patient s are advised to take their medications as instructed by their health care team. The data comes from all [place] treatment facilities. Glossary of Pharmacy Terms:Active = A prescription that can be filled at the local [place] pharmacy.Active: On Hold = An active prescription that will not be filled until pharmacy resolves the issue.Active: Susp = An active prescription that is not scheduled to be filled yet.Clinic Order = A medication received during a visit to a [place] clinic or emergency department (currently not available).Discontinued = A prescription stopped by a [place] provider. It is no longer available to be filled. = A prescription which is too old to fill. This does not refer to the expiration date of the medication in the container. Non-VA = A medication that came from someplace other than a [place] pharmacy. This may be a prescription from either the [place] or other providers that was filled outside the [place]. Or, it may be an over the [...] FOR INHALATION ONCE 1 Nov 16, 2018 [id number] October 17, 2018 KOURTNEY DANIELSON [facility] ALBUTEROL SO4 90MCG/ACTUAT (CFC-F) INHL,ORAL,6.7GM Active INHALE 2 PUFFS BY ORAL INHALATION FOUR TIMES A DAY NEEDED - RINSE MOUTHPIECE FREQUENTLY TO PREVENT CLOGGING 1 Apr 24, 2020 [id number] October 18, 2019 KOURTNEY DANIELSON [facility] ALBUTEROL SO4 90MCG/ACTUAT (CFC-F) INHL,ORAL,6.7GM Discontin ued INHALE 2 PUFFS BY ORAL INHALATION FOUR TIMES A DAY NEEDED - RINSE MOUTHPIECE FREQUENTLY TO PREVENT CLOGGING 2 Apr 24, 2020 [id number] Apr 24, 2019 KOURTNEY DANIELSON [facility] BUDESONIDE 160MCG/FORMOTEROL FUM 4.5MCG/SPRAY INHL,ORAL,10.2 GM Active INHALE 2 PUFFS BY ORAL INHALATION TWO TIMES A DAY FOR BREATHING. SHAKE WELL. RINSE MOUTH AND SPIT AFTER EACH USE. 2 Apr 24, 2020 [id number] October 17, 2019 MCKENNE Y,KOURTNEY [facility] CALCIUM 500MG (CA CARBONATE-1.25GM) TAB Active: Susp TAKE ONE TABLET BY MOUTH TWO TIMES A DAY 180 Nov 20, 2020 [id number] Jan 09, 2020 KOURTNEY DANIELSON [facility] CALCIUM 500MG (CA CARBONATE-1.25GM) TAB Discontinued TAKE ONE TABLET BY MOUTH TWO TIMES A DAY 180 Jan 08, 2020 [id number] October 21, 2019 TARIQKOURTNEY [facility] [place] CALCIUM 500MG (CA CARBONATE-1.25GM) TAB Discontinued TAKE ONE TABLET BY MOUTH TWO TIMES A DAY 180 Dec 29, 2018 [id number] Oct 01, 2018 [facility] T[facility] CARBIDOPA 25MG/LEVODOPA 100MG TAB Active TAKE 2 TABLETS BY MOUTH FOUR TIMES A DAY FOR PARKINSON'S DISEASE. DO NOT TAKE WITH FOOD. 240 Nov 24, 2020 [id number] Nov 27, 2019 [facility] [place] CARBIDOPA 25MG/LEVODOPA 100MG TAB Discontinued TAKE T WO TABLETS BY MOUTH FIVE TIMES DAILY FOR PARKINSON'S DISEASE. DO NOT TAKE WITH FOOD. 600 Jul 02, 2020 [id number] Nov 19, 2019 [facility] [place] [facility] CARBIDOPA 25MG/LEVODOPA 100MG TAB Discontinued TAKE 2 TABLETS BY MOUTH FIVE TIMES DAILY FOR PARKINSON'S DISEASE. DO NOT TAKE WITH FOOD. 300 Jun 30, 2020 [id number] Jul 01, 2019 [facility] [facility] CARBIDOPA 25MG/LEVODOPA 100MG TAB Discontinued TAKE 2 TABLETS BY MOUTH FOUR TIMES A DAY FOR PARKINSON'S DISEASE. DO NOT TAKE WITH FOOD. 240 Jun 24, 2020 [id number] Jun 26, 2019 [facility] [facility] CARBIDOPA 25MG/LEVODOPA 100MG TAB Discontinued TAKE 2 TABLETS BY MOUTH FOUR TIMES A DAY FOR PARKINSON'S DISEASE. DO NOT TAKE WITH FOOD. 240 Dec 25, 2019 [id number] May 15, 2019 [facility] [place] [facility] CARBIDOPA 25MG/LEVODOPA 100MG TAB Discontinued TAKE 2 TABLETS BY MOUTH FOUR TIMES A DAY FOR PARKINSON'S DISEASE. DO NOT TAKE WITH FOOD. 240 Jun 07, 2019 [id number] Nov 18, 2018 [facility] [place] [facility] CHOLECALCIFEROL 25MCG (1,000UNIT) TAB Active: Susp TA KE TWO TABLETS BY MOUTH ONCE A DAY FOR VITAMIN D DEFICIENCY 200 Nov 20, 2020 [id number] Dec 172019 [facility] CHOLECALCIFEROL 25MCG (1,000UNIT) TAB Discontinued TA KE TWO TABLETS BY MOUTH ONCE A DAY FOR VITAMIN D DEFICIENCY 200 Dec 25, [id number] [facility] [place] CHOLECALCIFEROL 25MCG (1,000UNIT) TAB Discontinued TA KE TWO TABLETS BY MOUTH ONCE A DAY FOR VITAMIN D DEFICIENCY 200 Oct 10, 2018 [id number] Aug 172018 [facility] CLOPIDOGREL BISULFATE 75MG TAB Active: Susp TAKE ONE TABLET BY MOUTH ONCE A DAY TO PREVENT BLOOD CLOTS 90 Apr 24, 2020 [id number] Dec 19, 2019 [facility] CLOPIDOGREL BISULFATE 75MG TAB Discontinued TAKE ONE TABLET BY MOUTH ONCE A DAY TO PREVENT BLOOD CLOTS 90 Jun 01, 2019 [id number] Mar 13, [address] [facility] [place] DIPHENHYDRAMINE HCL 25MG CAP Non-VA TAKE 1 CAPSULE BY MOUTH EVERY 6 HOURS NEEDED Non-VA Documented by: KOURTNEY DANIELSON nted at: [facility] FLUDROCORTISONE ACETATE 0.1MG TAB Active TAKE ONE TABLET BY M OUTH ONCE A DAY 90 Nov 19, 2020 [id number] Nov 20, 2019 [facility] [place] FOLIC ACID 1MG TAB Non- VA TAKE ONE TABLET BY MOUTH ONCE A DAY Non-VA Documented by: KOURTNEY DANIELSON nted at: [facility] GABAPENTIN 300MG CAP Active TAKE 1 CAPSULE BY M OUTH 5 TIMES A DAY FOR PAIN AND TREMORS. 300 October 17, 2020 [id number] October 18, 2019 [facility] GABAPENTIN 300MG CAP Discontinued TAKE ONE CAPSULE BY MOUTH FOUR TIMES A DAY FOR PAIN AND TREMORS. 240 Jan 08, 2020 [id number] Oct 14, 2019 [facility] [place] GABAPENTIN 300MG CAP Discontinued TAKE ONE CAPSULE BY MOUTH FOUR TIMES A DAY FOR PAIN AND TREMORS. 240 Mar 08, 2019 [id number] Jan 07, 2019 [facility] [place] HYDROCODONE 10MG/ACETAMINOPHEN 325MG TAB Active TAKE ONE TABLET (10/325MG) BY MOUTH THREE TIMES A DAY NEEDED FOR PAIN CAUTION: DO NOT EXCEED 4000MG/DAY TOTAL OF ACETAMINOPHEN (APAP) FROM ALL MEDS 90 Dec 20, 2019 [id number] Nov 21, 2019 TARIQKOURTNEY [facility] HYDROCODONE 10MG/ACETAMINOPHEN 325MG TAB Discontinued TAKE ONE TABLET (10/325MG) BY MOUTH THREE TIMES A DAY NEEDED FOR PAIN CAUTION: DO NOT EXCEED 4000MG/DAY TOTAL OF ACETAMINOPHEN (APAP) FROM ALL MEDS 90 Sep 17, 2 020 [id number] Sep 04, 2019 [facility] [place] HYDROCODONE 10MG/ACETAMINOPHEN 325MG TAB Discontinued TAKE ONE TABLET BY MOUTH THREE TIMES A DAY NEEDED FOR PAIN CAUTION: DO NOT EXCEED 4000MG/DAY TOTAL OF ACETAMINOPHEN (APAP) FROM ALL MEDS 90 Jul 26, 2019 [id number] Ja n 2019 [facility] [place] HYDROCODONE 10MG/ACETAMINOPHEN 325MG TAB Discontinued TAKE ONE TABLET BY MOUTH THREE TIMES A DAY NEEDED FOR PAIN CAUTION: DO NOT EXCEED 4000MG/DAY TOTAL OF ACETAMINOPHEN (APAP) FROM ALL MEDS 90 Jun 27, 2019 [id number] De c 2018 [facility] [place] HYDROCODONE 10MG/ACETAMINOPHEN 325MG TAB Discontinued TAKE ONE TABLET BY MOUTH THREE TIMES A DAY NEEDED FOR PAIN CAUTION: DO NOT EXCEED 4000MG/DAY TOTAL OF ACETAMINOPHEN (APAP) FROM ALL MEDS 90 May 08, 2019 [id number] Oc t 2018 [facility] [place] HYDROCODONE 10MG/ACETAMINOPHEN 325MG TAB Discontinued TAKE ONE TABLET BY MOUTH THREE TIMES A DAY NEEDED FOR PAIN CAUTION: DO NOT EXCEED 4000MG/DAY TOTAL OF ACETAMINOPHEN (APAP) FROM ALL MEDS 90 Mar 28, 2019 [id number] Se p 2018 [facility] [place] HYDROCODONE 10MG/ACETAMINOPHEN 325MG TAB Discontinued TAKE ONE TABLET BY MOUTH THREE TIMES A DAY NEEDED FOR PAIN CAUTION: DO NOT EXCEED 4000MG/DAY TOTAL OF ACETAMINOPHEN (APAP) FROM ALL MEDS 90 Feb 06, 2019 [id number] Ju l 2018 [facility] [place] HYDROCODONE 10MG/ACETAMINOPHEN 325MG TAB Discontinued TAKE ONE TABLET BY MOUTH THREE TIMES A DAY NEEDED FOR PAIN CAUTION: DO NOT EXCEED 4000MG/DAY TOTAL OF ACETAMINOPHEN (APAP) FROM ALL MEDS 90 Dec 05, 2018 [id number] Ma y 2018 [facility] [place] HYDROCODONE 10MG/ACETAMINOPHEN 325MG TAB Discontinued TAKE ONE TABLET BY MOUTH THREE TIMES A DAY NEEDED FOR PAIN CAUTION: DO NOT EXCEED 4000MG/DAY TOTAL OF ACETAMINOPHEN (APAP) FROM ALL MEDS 90 October 25, 2018 [id number] Ap r 2018 [facility] [place] HYDROCODONE 10MG/ACETAMINOPHEN 325MG TAB TAKE ONE TABLET (10/325MG) BY MOUTH THREE TIMES A DAY NEEDED FOR PAIN CAUTION: DO NOT EXCEED 4000MG/DAY TOTAL OF ACETAMINOPHEN (APAP) FROM ALL MEDS 90 November 16, 2019 [id number] October 18, 2019 [facility] METHOTREXATE NA 2.5MG TAB Active TAKE SEVEN TABLETS BY MOUTH EVERY WEEK 90 October 17, 2020 [id number] November 04, 2019 [facility] METHOTREXATE NA 2.5MG TAB Discontinued TAKE SEVEN TABLETS BY MOUTH EVERY WEEK 90 May 09, 2020 [id number] Aug 16, 2019 NASH TANG [facility] METHOTREXATE NA 2.5MG TAB Discontinued TAKE SEVEN TABLETS BY MOUTH EVERY WEEK 90 Aug 04, 2019 [id number] Feb 22, [address] [facility] [place] NORTRIPTYLINE HCL 10MG CAP Active TAKE 2 CAPSULES BY MO UTH AT BEDTIME NEEDED 120 Apr 02, 2020 [id number] Nov 20, 2019 [facility] [place] NORTRIPTYLINE HCL 10MG CAP Discontinued TAKE 2 CAPSUL ES BY MOUTH AT BEDTIME NEEDED 120 Mar 20, 2019 [id number] Jan 23, 2019 [facility] OMEPRAZOLE 20MG CAP,EC Active TAKE 1 CAPSULE BY MOUTH EVERY MORNING TO LOWER STOMACH ACID. TAKE 30 MINUTES PRIOR TO FOOD. October 17, 2020 [id number] October 21, 2019 [facility] OMEPRAZOLE 20MG CAP,EC Discontinued TAKE 1 CAPSULE BY MOUTH EVERY MORNING TO LOWER STOMACH ACID. TAKE 30 MINUTES PRIOR TO FOOD. 90 Oct 02, 2019 [id number] Aug 02, 2019 [facility] [place] PREDNISONE 1MG TAB Discontinued TAKE THREE TABLETS B Y MOUTH ONCE A DAY FOR INFLAMMATION AND IMMUNE RESPONSE. TAKE WITH FOOD OR MILK. 270 Fe 2019 [id number] Apr 24, 2019 [facility] PREDNISONE 1MG TAB Discontinued TAKE FOUR TABLETS BY MOUTH ONCE A D AY 360 Apr 22, 2019 [id number] Jan 24, 2019 [facility] [place] PREDNISONE 1MG TAB Discontinued TAKE FOUR TABLETS BY MOUTH ONCE A D AY 360 Dec 29, 2018 [id number] Oct 01, 2018 NASH TANG [facility] PREDNISONE 1MG TAB TAKE THREE TABLETS B Y MOUTH ONCE A DAY FOR INFLAMMATION AND IMMUNE RESPONSE. TAKE WITH FOOD OR MILK. 270 Ap r 2019 [id number] Jul 13, 2019 [facility] [place] PREDNISONE 5MG TAB Discontinued TAKE ONE TABLET BY MOUTH ONCE A DAY WITH FOOD 60 Aug 01, 2019 [id number] Sep 25, 2018 [facility] [place] ROPINIROLE HCL 1MG TAB Active TAKE ONE TABLET BY MOUTH AT BED TIME 90 October 17, 2020 [id number] Nov 25, 2019 [facility] ROPINIROLE HCL 1MG TAB Discontinued TAKE ONE TABLET BY MOUTH AT BED TIME 90 Dec 05, 2019 [id number] Sep 03, [address]ST[address]ESUS [facility] [place] ROPINIROLE HCL 1MG TAB Discontinued TAKE ONE TABLET BY MOUTH AT BED TIME 90 Dec 13, 2018 [id number] Sep 12, 2018 [facility] [place] TAMSULOSIN HCL 0.4MG CAP Active: Susp TAKE 1 CAPSULE BY MOUTH ONCE A DAY FOR PROSTATE. TAKE AT THE SAME TIME EACH DAY WITH FOOD. 90 Sep 30 [id number] Dec 20, 2019 [facility] [place] TAMSULOSIN HCL 0.4MG CAP Discontinued TAKE 1 CAPSULE BY MOUTH ONCE A DAY FOR PROSTATE. TAKE AT THE SAME TIME EACH DAY WITH FOOD. 90 Sep 12 0 [id number] Jun 24, [address] [facility] [place] Problems (Conditions): All historical and current Section Date Range: From patient's date of to the date document was create d. This section includes a list of Problems (Conditions) know n to VA for the patient. It includes both active and inacti ve problems (conditions). The data comes from all [place] treatment facilities. Problem Status Problem Code Date of Onset Date of Resolution Comm ent(s) Provider Source Abnormal radiologic density Active [id number] KOURTNEY HWANG [facility] [place] Allergic rhinitis Active [id number] LADY SALAZAR [facility] [place] Anemia Active [id number] KOURTNEY DANIELSON [facility] [place] Chest pain (SNOMED CT 54311392) Active 786.50 KOURTNEY DANIELSON [facility] [place] Chondrocalcinosis Active [id number] JASONYOU [facility] [place] Chronic obstructive lung disease Active [id number] KOURTNEY DANIELSON [facility] [place] Coronary artery disease Active [id number] Angella LINDSEY [facility] [place] Cough Active [id number] LADY SALAZAR S [facility] [place] Cough (SNOMED CT 36297811) Active 786.2 KOURTNEY BARRON [facility] [place] Dysarthria (SNOMED CT 1218999) Active 784.51 M KOURTNEY WONG [facility] [place] Dyspnea (SNOMED CT 355051212) Active 786.09 KOURTNEY BARKSDALE [facility] [place] Eruption due to drug Active 52116322 Abdiaziz DANIELSON [facility] [place] Gastroesophageal reflux disease Active [id number] KOURTNEY DANIELSON [facility] [place] Hallux valgus AND bunion Active [id number] ALEXANDRO DangeloDEISY Crane [facility] [place] Joint pain (SNOMED CT 57460132) Active 719.40 DEISY CONTRERAS Royce [facility] [place] Joint swelling (SNOMED CT 381525582) Active 719.00 KOURTNEY DANIELSON [facility] [place] Knee pain Active [id number] JENNIFER [facility] [place] Muscle weakness (SNOMED CT 35001567) Active 728.87 KOURTNEY DANIELSON [facility] [place] Neuropathy Active [id number] KOURTNEY DANIELSON RN [facility] [place] Osteoarthritis Active 715.36 DYAN SERVIN [facility] [place] Parkinson's disease Active [id number] ETHAN DANIELSON NA [facility] [place] Peripheral Neuropathy Active 356.9 DASARAZORAIDA,P URUSHOTHAMA V [facility] [place] Personal History of Exposure to Agent [place] Active V15.89 DEISY [address]ER[address] [facility] [place] Polyp of colon (SNOMED CT 96322143) Active 211.3 KOURTNEY DANIELSON [facility] [place] Restless legs Active 04814097 PATRICK WHITE [facility] [place] Rheumatoid arthritis Active 54923115 Abdiaziz DANIELSON [facility] [place] Screening, Malignancy Active V76.89 LISSETH TOLEDO [facility] [place] Sleep apnea Active 74185951 KOURTNEY DANIELSON RN [facility] [place] Synovial cyst of popliteal space (SNOMED CT 24653317) Active 727.51 KOURTNEY DANIELSON [facility] [place] Tobacco dependence in remission Active [id number] [facility] [place] Tobacco use Active 687110343 JENNIFER LINDSEY [facility] [place] Tremor Active 25083911 JENNIFER LINDSEY K S [facility] [place] Unresolved Active 89639998 JENNIFER LINDSEY N [facility] [place] Unresolved Active 98606232 JENNIFER LINDSEY [facility] [place] Radiology Reports: +/- 30 days of the encounter No Data Provided for This Section Pathology Reports: +/- 30 days of the encounter No Data Provided for This Section Encounter Notes: All associated encounter notes This section contains the clinical notes associated to the Encounter. Date/Time Encounter Note(s) Provider Source Aug 06, 2019 04:01 PM MEDICATION MGT NOTE: LOCAL TITLE: [place]-MEDICATION RECONCILIATION (BP,O) STANDARD TITLE: MEDICATION MGT NOTE DATE OF NOTE: AUG 06, 2019@16:01 ENTRY DATE: AUG 06, 2019@16:01:23 AUTHOR: NASH TANG COSIGNER: URGENCY: STATUS: COMPLETED MEDICATION RECONCILIATION Allergies: PENICILLIN, PANTOPRAZOLE Allergies reviewed, edited in CPRS as appropriate and confirmed by patient: Yes Active Outpatient Medications (including Supplies): Outpatient Medications Status = 1) ALBUTEROL 90MCG (CFC-F) 200D ORAL INHL INHALE 2 PUFFS ACTIVE BY ORAL INHALATION FOUR TIMES A DAY NEEDED - RINSE MOUTHPIECE FREQUENTLY TO PREVENT CLOGGING 2) ALBUTEROL SO4 0.083% INHL 3ML USE 3 MLS (1 AMPULE) IN ACTIVE NEBULIZER FOR INHALATION FOUR TIMES A DAY NEEDED 3) BUDESONIDE 160/FORMOTER 4.5MCG 120D INH INHALE 2 ACTIVE PUFFS BY ORAL INHALATION TWO TIMES A DAY FOR BREATHING. SHAKE WELL. RINSE MOUTH AND SPIT AFTER EACH USE. 4) CALCIUM 500MG (CA CARB-1.25GM) TAB TAKE ONE TABLET BY ACTIVE MOUTH TWO TIMES A DAY 5) CARBIDOPA 25/LEVODOPA 100MG TAB TAKE 2 TABLETS BY ACTIVE MOUTH FIVE TIMES DAILY FOR PARKINSON'S DISEASE. DO NOT TAKE WITH FOOD. 6) CHOLECALCIFEROL (VIT D3) 1,000UNIT TAB TAKE TWO ACTIVE TABLETS BY MOUTH ONCE A DAY FOR VITAMIN D DEFICIENCY 7) CLOPIDOGREL BISULFATE 75MG TAB TAKE ONE TABLET BY ACTIVE MOUTH ONCE A DAY TO PREVENT BLOOD CLOTS 8) GABAPENTIN 300MG CAP TAKE ONE CAPSULE BY MOUTH FOUR ACTIVE TIMES A DAY FOR PAIN AND TREMORS. 9) METHOTREXATE NA 2.5MG TAB TAKE SEVEN TABLETS BY MOUTH ACTIVE EVERY WEEK 10) NORTRIPTYLINE HCL 10MG CAP TAKE TWO CAPSULES BY MOUTH ACTIVE AT BEDTIME NEEDED 11) OMEPRAZOLE 20MG EC CAP TAKE ONE CAPSULE BY MOUTH ACTIVE EVERY MORNING TO LOWER STOMACH ACID. TAKE 30 MINUTES PRIOR TO FOOD. 12) PREDNISONE 1MG TAB TAKE THREE TABLETS BY MOUTH ONCE A ACTIVE DAY FOR INFLAMMATION AND IMMUNE RESPONSE. TAKE WITH FOOD OR MILK. 13) ROPINIROLE HCL 1MG TAB TAKE ONE TABLET BY MOUTH AT ACTIVE BEDTIME 14) TAMSULOSIN HCL 0.4MG CAP TAKE ONE CAPSULE BY MOUTH ACTIVE ONCE A DAY FOR PROSTATE. TAKE AT THE SAME TIME EACH DAY WITH FOOD. Non-VA Medications Status = 1) Non-VA DIPHENHYDRAMINE HCL 25MG CAP 25MG MOUTH EVERY ACTIVE 6 HOURS NEEDED 2) Non-VA FOLIC ACID 1MG TAB 1MG MOUTH ONCE A DAY ACTIVE 16 Total Medications Compared newly ordered medications and medication changes to active medications and non-VA medications, and then reviewed medications with patient and/or caregiver. All discrepancies noted and reconciled. Patients, or caregivers, was provided with reconciled medications list and advised to provide to all non [facility] providers. Potential adverse reactions of new medications were discussed with the patient. Education/counseling provided to patient/caregiver regarding new medications. Pertinent lab reviewed. Level of Understanding: Good Comments: Please note any changes to the medications from this visit: New? Changed? Yes - Decrease Prednisone to 2 mg p.o. every morning with breakfast. Stopped? 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 No Active Outpatient Medications (including Supplies): Outpatient Medications Status 1) ALBUTEROL 90MCG (CFC-F) 200D ORAL I NHL INHALE 2 PUFFS ACTIVE BY ORAL INHALATION FOUR TIMES A DAY NEEDED - RINSE MOUTHPIECE FREQUENTLY TO PREVENT CLOGGING 2) ALBUTEROL SO4 0.083% INHL 3ML USE 3 MLS (1 AMPULE) IN ACTIVE NEBULIZER FOR INHALATION FOUR TIMES A DAY NEEDED 3) BUDESONIDE 160/FORMOTER 4.5MCG 120D INH INHALE 2 ACTIVE PUFFS BY ORAL INHALATION TWO TIMES A DAY FOR BREATHING. SHAKE WELL. RINSE MOUTH AND SPIT AFTER EACH USE. 4) CALCIUM 500MG (CA CARB-1.25GM) TAB TAKE ONE TABLET BY ACTIVE MOUTH TWO TIMES A DAY 5) CARBIDOPA 25/LEVODOPA 100MG TAB PURA E 2 TABLETS BY ACTIVE MOUTH FIVE TIMES DAILY FOR PARKINSON'S DISEASE. DO NOT TAKE WITH FOOD. 6) CHOLECALCIFEROL (VIT D3) 1,000UNIT TAB TAKE TWO ACTIVE TABLETS BY MOUTH ONCE A DAY FOR VITAMIN D DEFICIENCY 7) CLOPIDOGREL BISULFATE 75MG TAB TAKE ONE TABLET BY ACTIVE MOUTH ONCE A DAY TO PREVENT BLOOD CLOTS 8) GABAPENTIN 300MG CAP TAKE ONE CAPSU LE BY MOUTH FOUR ACTIVE TIMES A DAY FOR PAIN AND TREMORS. 9) METHOTREXATE NA 2.5MG TAB TAKE LI N TABLETS BY MOUTH ACTIVE EVERY WEEK 10) NORTRIPTYLINE HCL 10MG CAP TAKE TWO CAPSULES BY MOUTH ACTIVE AT BEDTIME NEEDED 11) OMEPRAZOLE 20MG EC CAP TAKE ONE CAP ALICIA BY MOUTH ACTIVE EVERY MORNING TO LOWER STOMACH ACID. TAKE 30 MINUTES PRIOR TO FOOD. 12) PREDNISONE 1MG TAB TAKE THREE TABLE TS BY MOUTH ONCE A ACTIVE DAY FOR INFLAMMATION AND IMMUNE RESPONSE. TAKE WITH FOOD OR MILK. 13) ROPINIROLE HCL 1MG TAB TAKE ONE TAB LET BY MOUTH AT ACTIVE BEDTIME 14) TAMSULOSIN HCL 0.4MG CAP TAKE ONE C APSULE BY MOUTH ACTIVE ONCE A DAY FOR PROSTATE. TAKE AT THE SAME TIME EACH DAY WITH FOOD. Non-VA Medications Status 1) Non-VA DIPHENHYDRAMINE HCL 25MG CAP 25MG MOUTH EVERY ACTIVE 6 HOURS NEEDED 2) Non-VA FOLIC ACID 1MG TAB 1MG MOUTH ONCE A DAY ACTIVE 16 Total Medications Compared newly ordered medications and medication changes to active medications and non-VA medications, and then reviewed medications with patient and/or caregiver. All discrepancies noted and reconciled. Patients, or caregivers, was provided with reconciled medications list and advised to provide to all non [place] providers. Potential adverse reactions of new medications were discussed with the patient. Essential Medication List was reviewed with patient and any discrepancies are reconciled below. Are there any OTC medications,vitamins or herbal supplements in use and not listed on Medication Reconciliation? No Are there any prescriptions meds in the use that are not listed on the last medication reconciliation? No Are there any medications no longer in use or on hold? No Discrepancies Identified: No Discrepancies identified/communicated to prescribing providers for reconciliation. Discrepancies reconciled: Is this appointment for Pain Management or Sleep Clinic? No (If yes, depression reminder due) Is the patient diabetic? No - patient is not a diabetic WI-LATEX REVIEW: Latex review for allergy: ...Patient denies latex allergy. WI-ABUSE/NEGLECT SCREENING: Abuse/Neglect Questions Yes Does the patient show any signs of abuse or neglect? No REPORT OF SUSPECTED ABUSE OR NEGLECT SOCIAL WORK CONSULTS: WI-PAIN: Pain Documentation: Pain Assessment: Do you have pain now? ...Yes - updated pain score Location: (specify location in comments) Pain Scale (0-10): 6 (08/06/2019 13:03) Comment: Joints ...Onset/Duration: ... Chronic ...Frequency: Continuous ...Quality: Dull Ache /es/ LOU MALAVE RN Signed: 08/06/2019 13:13 LOU MALAVE [facility] Aug 06, 2019 12:54 PM RHEUMATOLOGY NOTE: LOCAL TITLE: WI-RHEUMATOLOGY/FOLLOW-UP STANDARD TITLE: RHEUMATOLOGY NOTE DATE OF NOTE: AUG 06, 2019@12:54 ENTRY DATE: AUG 06, 2019@12:54:33 AUTHOR: NASH TANG COSIGNER: URGENCY: STATUS: COMPLETED Primary Care Team: Kourtney Danielson PA-C Last seen in the Rheumatology clinic: April 09, 2019 CHIEF COMPLAINT/ HISTORY OF PRESENT ILLNESS/ INTERVAL HISTORY: The patient, 68 year old [place], with past medical history of COPD, TIA, Rheumatoid Arthritis, Parkinson's Disease is here for follow-up visit with this practitioner for evaluation of his condition, medications and problems listed. Apparently the patient has history of Rheumatoid Arthritis and has been on high dose Methotrexate, low-dose Prednisone and Folic acid. The patient denies to have any major side effects secondary to these medications and has been tolerating them well. He reports to have pain (4/10) and mild morning stiffness (30 mins) in the small joints of the hands and wrists. 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 He has been seen by an Orthopedic Surgeon in the past for possible surgery on his right shoulder joint for the Osteoarthritis and rotator cuff tear. He also informs that he has undergone nerve conduction study for both hands and has been diagnosed with carpal tunnel syndrome. He has been using wrist splints regularly at night now and that has helped him. He also has pain in the right knee joint and has been seen by a Surgeon for that too. Past Medical History: COPD, TIA, Rheumatoid Arthritis, Parkinson's Disease Past Surgical History: Appendicectomy, bilateral knee surgeries, cataracts surgery Family History: Father: Diabetes, prostate cancer, at age 72. Mother: CAD, multiple sclerosis, CABG, at age 68 Brother: Alive and healthy Sister: Alive and healthy Social History: for 43 years, 2 children RESIDES: [place] [id number] TOBACCO: Quit 1 year ago, 1-2 packs per day for 45 years ETOH: One beer every now and then. CAFFEINE: 2-3 cups a day ALLERGIES: PENICILLIN Allergies reviewed, edited in CPRS as appropriate and confirmed by patient: Yes ROS: GENERAL: No fever or chills SKIN: No rashes or changes EYES: No vision changes or pain ENT: No hearing changes or pain. No congestion, rhinorrhea or sore throat. CVS: No chest pains, palpitations,. LUNGS: No SOB, cough ABDOMEN: No abd pain, N/V, diarrhea or constipation : No dysuria, frequency, hesitancy. No discharge. NEURO: No POSEY, dizziness, paresthesias MSK: No swelling, No joint pain PHYSICAL EXAMINATION: GENERAL: 68 years old male with NAD, Well groomed. VITALS: 08/06/19 13:03 T: 98.7 F (37.1 C) P: 91 R: 18 B/P: 99/59* Ht: 71.00 in (180.34 cm) (STATED) Wt: 176.30 lb (79.97 kg) Body Mass Index: 25 Pulse Oximetry: 93% via ROOM AIR Pain: 6 SKIN: No rashes or lesions. HEAD: Atraumatic, normocephalic. EYES: PERRL, sclera et conjunctiva clear. EARS: Gross hearing intact. TMs intact bilaterally without erythema NOSE: Patent, no congestion or rhinorrhea MOUTH: Mucus membranes moist, throat without redness or exudate NECK: No lymphadenopathy or thyromegaly. No bruits HEART: RRR without murmurs LUNGS: Resp non-labored. Lungs CTA-B/L ABD: Soft, non tender, BS normoactive EXT: Without deformity, edema NEURO/PSYCH: Recent memory appears intact. Affect appropriate. MSK: Normal gait and station. Normal ROM neck, normal spine curvature, nontender to palpation. Ribs nontender, pelvis stable. Strength adequate in bilateral upper and lower extremities. Mild tenderness present in the small joints of the hands, wrists and feet, involving the MCPs, PIPs and MTP joints. Mild tenderness present on the bilateral ulnar styloid processes. No effusion present in the elbows or knees. Metacarpal and Metatarsal squeeze mildly positive. Limited range of motion and mild tenderness on the right shoulder joint line. Tinel's positive in both hands. Crepitus present in the knee joints. No effusion in knee joints. Medications: The medication reconciliation was done with the patient. The patient was explained about each medicine and its importance and the patient will continue to take the medications on a regular basis as advised. Active Outpatient Medications (including Supplies): Current Rheumatological Medications: Methotrexate 17.5 mg by mouth every week on Tuesdays Folic acid 1 mg daily Gabapentin 300 mg po QID Prednisone 3 mg po q am Vitamin D 1000 U once a day Calcium 1000 mg po bid Lab results: I have reviewed all the lab work results with the patient in detail, including Rheumatological labs. Specimen Collection Date: Aug 06, 2019@12:27 Test name Result units Ref. range Site Code C-REACTIVE PROTEIN 20.37 H mg/dL 0.0 - 0.5 [6093] Specimen Collection Date: Aug 06, 2019@12:27 Test name Result units Ref. range Site Code SODIUM 137 mEq/L 136 - 145 [6093] POTASSIUM 4.1 mEq/L 3.5 - 5.0 [6093] CHLORIDE 97 L mEq/L 98 - 107 [6093] CO2 28.3 mEq/L 22 - 31 [6093] UREA NITROGEN mg/dL 16 mg/dL 9 - 25 [6093] *CREATININE 0.94 mg/dL 0.7 - 1.3 [6093] EGFR >60 [6093] GLUCOSE 104 H mg/dL 72 - 99 [6093] CALCIUM (mg/dL) 9.1 mg/dL 8.4 - 10.4 [6093] ANION GAP 11.7 8 - 16 [6093] ASPARTATE TRANSAMINASE 13 U/L 5 - 34 [6093] ALANINE AMINOTRANSFERASE <6 L U/L 8 - 40 [6093] ALKALINE PHOSPHATASE 82 U/L 40 - 150 [6093] TOTAL BILIRUBIN 0.3 mg/dL 0.2 - 1.2 [6093] PROTEIN,TOTAL 7.6 g/dL 6.0 - 8.6 [6093] ALBUMIN 3.9 g/dl 3.4 - 5.0 [6093] Specimen Collection Date: Aug 06, 2019@12:27 Test name Result units Ref. range Site Code ESR 67 H mm/hr 0 - 20 [6093] Specimen Collection Date: Aug 06, 2019@12:27 Test name Result units Ref. range Site Code WBC 9.6 K/cmm 3.60 - 11.20 [6093] RBC 3.46 L M/ul 4.1 - 5.7 [6093] HGB 9.0 L g/dl 13.1 - 16.8 [6093] HCT 29.4 L % 38.2 - 48.4 [6093] MCV 85.0 fl 80.1 - 98.5 [6093] MCH 26.0 L pg 27.0 - 34.0 [6093] MCHC 30.6 L g/dl 33.0 - 36.0 [6093] RDW 16.1 H % 11.8 - 15.1 [6093] PLATELET COUNT 506 H K/cmm 150 - 400 [6093] MPV 9.0 fl 7.5 - 11.2 [6093] NEUTROPHILS, AUTO % 83.7 % [6093] LYMPHOCYTES, AUTO% 10.0 % [6093] MONOCYTES, AUTO% 4.9 % [6093] EOSINOPHILS, AUTO% 0.5 % [6093] BASOPHILS, AUTO% 0.6 % [6093] IMMATURE GRANS, AUTO % 0.3 % [6093] NEUTROPHILS, ABSOLUTE 8.0 K/cmm 2.10 - 8.00 [6093] LYMPHOCYTES, ABSOLUTE 1.0 K/cmm 0.77 - 4.50 [6093] MONOCYTES, ABSOLUTE 0.5 K/cmm 0.19 - 0.80 [6093] EOSINOPHILS, ABSOLUTE 0.1 K/cmm 0.00 - 0.60 [6093] BASOPHILS, ABSOLUTE 0.1 K/cmm 0.00 - 0.20 [6093] IMMATURE GRANS, ABSOLUTE 0.03 K/cmm 0.00 - 0.05 [6093] Imaging studies: The x-ray results of bilateral hands and knee joints from the CPRS, have been reviewed with patient in detail. 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 He denies to have any major pain at this time though his ESR and CRP are elevated. He has never been on other Disease Modifying Anti- Rheumatic Drugs or biologic agents in the past. ESR: 67 < not done this time < 30, CRP: 20.3 < 6.43 < 2.4. Will monitor her closely. 2) [facility] use of Immunosuppressive Me dications: The current lab results are stable on the medication. No other complaints with immunosuppression at this time. 3) Nursing Home use of Steroids: He has bee n on low-dose Prednisone. He is taking Calcium and Vitamin D twice a day. He has not undergone a recent DEXA scan yet. 4) Bilateral Carpal Tunnel Syndrome: A n erve conduction study has been done in the past to diagnose bilateral carpal tunnel syndrome. Using wrist splints every night now and they have been helpful. 5) OA of the right shoulder joint/ rotat or cuff tear, right knee joint: He continues to follow up with his Orthopedic Surgeon in [place], [place], since he wants to pursue surgery closer to home, when he is ready for surgery, right shoulder joint first, right knee joint and bilateral carpal tunnel in that sequence. 6) COPD/ Pakinson's Disease: stable on m edications, follows up with his Primary Care Physician. RECOMMENDATIONS: - The patient has an element of Inflamma tory Arthritis present at this time. I have discussed with him and detailed that his symptoms and signs do correlate with this diagnosis. I have spent a fair amount of time explaining to the patient his condition and answered all his questions and concerns. - Decrease Prednisone to 2 mg p.o. every morning with breakfast. Expected outcomes, rationale for therapy, and side effects including but not limited to stomach irritation, headaches, mood changes, weight gain, osteoporosis, acne/skin thinning, fat deposits and stretch west, cataracts/glaucoma, high blood pressure and blood sugars, infections, leg cramps, ruptured tendons, fluid retention, allergic reactions, and delayed healing extensively reviewed with the patient. I will taper Prednisone down in the near future, as I have informed him that steroids is not a long-term treatment option for Rheumatoid Arthritis. - I have reviewed all the other lab work results with the patient in detail. - Straight wrist splints at bedtime have also been advised and they have been helpful. - He wanted to pursue surgery for the bi lateral carpal tunnel syndrome in [place], [place] after the right shoulder joint and right knee joint surgery but they have not been done and he is still debating. - Continue Methotrexate 2.5 mg, 7 tabs p .o. q week. The expected outcomes, rationale for therapy, and side effects including but not limited to fatigue, hair loss, abdominal discomfort, nausea, oral sores, lab abnormalities, teratogenicity, delayed healing, suppressed immune system/infections, and interaction with multiple medications were extensively reviewed with the patient. - Continue Folic Acid 1 mg po daily. - The patient has been detailed about th e anti-inflammatory diets to help him with his immune system. - Time spent: 25 mins, and 50% of that t deana was spent on coordinating care (explaining the management plan and side effects) and rest on counselling the patient weight loss, diet changes and exercise plan. - Continue to follow up with the [facility] team for non-rheumatological issues. - CBC, CMP, CRP, and ESR, every 3-4 ju hs for MTX toxicity. - Return to the clinic in 4 months, at h is request with pre-clinic labs, CBC, CMP, ESR and CRP done. /sofya/ Nash Tang MD Staff Topline Beading Machine Tender Signed: 08/06/2019 16:00 [facility]
--- OUTSIDE RECORDS SUMMARY | 2019-12-04 21:59 | XMS REPORT | Encounter Summary ---
Author Author Department [facility] CARLOS sweeney Organization Department of [facility] Address [address] [place] [id number] Phone Unavailable Care Team Providers Care Power And Recovery Superintendent Name Role Phone TARIQ KJ PCP Unavailable Insurance Providers: All historical and [...] PLAN G MEDICARE SUPPLEMENT Dec PLAN G [id number] [phone] CARLOS ROMANO PATIENT MEDICARE (WNR) MEDICARE (M) PART A Dec 16, 2014 PART A [id number] ROSALINACARLOS PATIENT MEDICARE (WNR) MEDICARE (M) PART B Dec 16, 2014 PART B [id number] CARLOS ROMANO PATIENT MEDICO DENTAL INSURANCE DENTAL VISIONHEARING Dec 16, 2014 DENTAL VISIONHEAR [id number] [phone] CARLOS ROMANO PATIENT Selected Encounter This section includes the information on record at [place] for the Encounter. Date/Time Encounter Type Encounter Description Reason Provider Source Jul 10, 2019 07:30 AM Outpatient Encounter COMMUNITY CARE CONSULT [facility], VISN 15 IHE Encounter Template Text not used by [place] Assessments - Encounter Diagnoses No Data Provided for This Section Plan of Treatment: Future Appointments (+ 6 months) and Future Tests (+/- 45 day s) The Plan of Treatment section includes future care activities for the patient fr om all [place] treatment facilities. This section includes future appointments and fu ture orders which are active, pending or scheduled. Future Appointments This section includes appointments that were scheduled t o occur 6 months from the date of the Encounter, up to a maximum of 20 appointme nts. The data comes from all [facility]. Appointment Date/Time Appointment Type Appointment Facili ty Name Aug 06, 2019 01:00 PM AMBULATORY [facility] October 17, 2019 09:00 AM AMBULATORY - MED[facility] [place] October 27, 2019 09:45 AM AMBULATORY - NONE [facility] Nov 20, 2019 05:00 PM AMBULATORY - MEDICINE [facility] [place] Nov 24, 2019 11:20 AM AM[facility]ULATORY - NONE [facility] Dec 02, 2019 10:30 AM AM[facility]ULATORY - [facility]ONE [facility] Dec 03, 2019 12:30 PM [facility] Dec 04, 2019 10:45 AM AMBULATORY - MEDICINE [facility] [place] Dec 10, 2019 01:30 PM AMBULATORY - [facility]IC[facility] Jan 06, 2020 10:30 AM AMBULATORY - MEDICINE [facility] [place] Active, Pending, and Scheduled [...] The data comes from all [facility]. Test Date/Time Test Type Test Details Facility Name Aug 08, 2019 01:27 PM Consult Order TO-NEUROLOGY OUTPT -[id number] Cons Fare Collect[facility] Surgical Procedures: All associated to the encounter No Data Provided for This Section Lab Results: +/- 30 days of the encounter This section includes the Chemistry and Hematology Lab R esults on record with [place] for the patient. Radiology Reports and Pathology Report s are provided separately, in subsequent sections. Lab Results This section contains the Chemistry/Hematology Results juan t were resulted 30 days before or 30 days after the date of the Encounter. Date/Time Source Result Type Result - Unit Interpretation Reference Range Comment Aug 06, 2019 12:27 PM [facility] CBC & DIFF Specimen Type: BLOOD No [...] Aug 06, 2019 12:27 PM [facility] COMPREHENSIVE METABOLI C PANEL Specimen [...] Aug 06, 2019 12:27 PM [facility] C-REACTIVE PROTEIN Specimen Type: SERUM No comment entered. C-REACTIVE PROTEIN 20.37 mg/dL H 0.0-0.5 Aug 06, 2019 12:27 PM [facility] ERYTHROCYTE SEDIMENTAT ION RATE Specimen Type: BLOOD [...] Adverse Reactions (ADR s) on record with [place] for the patient. The data comes from a ll [place] treatment facilities. It does not list Allergies/ADRs that were removed or entered in error. Some allergies/ADRs may be reported in t Immunization section. Allergen Event Date Event Type Reaction(s) Severity Source PANTOPRAZOLE Oct 01, 2018 Propensity to adverse reactions to drug (disorder) Eruption [facility] 15 PENICILLIN Jul 17, 2012 Propensity to adverse reactions to drug (disorder) Peripheral edema [facility] 15 Medications: VA dispensed (-15 months) and Non-VA Documented (Obtained Outside A) Section Date Range: 1) prescriptions processed by a VA pharmacy in the last 15 m [facility], and 2) all medications recorded in the [place] medical record as "non-VA medic ations". Pharmacy terms refer to [place] pharmacy's work on prescriptions. VA patient s are advised to take their medications as instructed by their health care team. The data comes from all [place] treatment facilities. Glossary of Pharmacy Terms:Active = A prescription that can be filled at the local [place] pharmacy.Active: On Hold = An active prescription that will not be filled until pharmacy resolves the issue.Active: Susp = An active prescription that is not scheduled to be filled yet.Clinic Order = A medication received during a visit to a [place] clinic or emergency department (currently not available).Discontinued = A prescription stopped by a [place] provider. It is no longer available to be filled. = A prescription which is too old to fill. This does not refer to the expiration date of the medication in the container. Non-VA = A medication that came from someplace other than a [place] pharmacy. This may be a prescription from either the [place] or other providers that was filled outside the [place]. Or, it may be an over the [...] FOR INHALATION ONCE 1 Nov 16, 2018 [id number] October 17, 2018 KJ POTTER [facility] ALBUTEROL SO4 90MCG/ACTUAT (CFC-F) INHL,ORAL,6.7GM Active INHALE 2 PUFFS BY ORAL INHALATION FOUR TIMES A DAY NEEDED - RINSE MOUTHPIECE FREQUENTLY TO PREVENT CLOGGING 1 Apr 24, 2020 [id number] October 18, 2019 [facility] ALBUTEROL SO4 90MCG/ACTUAT (CFC-F) INHL,ORAL,6.7GM Discontin ued INHALE 2 PUFFS BY ORAL INHALATION FOUR TIMES A DAY NEEDED - RINSE MOUTHPIECE FREQUENTLY TO PREVENT CLOGGING 2 Apr 24, 2020 [id number] Apr 24, [address] [facility] BUDESONIDE 160MCG/FORMOTEROL FUM 4.5MCG/SPRAY INHL,ORAL,10.2 GM Active INHALE 2 PUFFS BY ORAL INHALATION TWO TIMES A DAY FOR BREATHING. SHAKE WELL. RINSE MOUTH AND SPIT AFTER EACH USE. 2 Apr 24, 2020 [id number] October 17, [address] [facility] CALCIUM 500MG (CA CARBONATE-1.25GM) TAB Active: Susp TAKE ONE TABLET BY MOUTH TWO TIMES A DAY 180 Nov 20, 2020 [id number] Jan 09, [address] CALCIUM 500MG (CA CARBONATE-1.25GM) TAB Discontinued TAKE ONE TABLET BY MOUTH TWO TIMES A DAY 180 Jan 08, 2020 [id number] October 21, 2019 TARIQKJ SMITH [facility] [place] CALCIUM 500MG (CA CARBONATE-1.25GM) TAB Discontinued TAKE ONE TABLET BY MOUTH TWO TIMES A DAY 180 Dec 29, 2018 [id number] Oct 01, 2018 NASH KULKARNI ToshiaJose [facility] CARBIDOPA 25MG/LEVODOPA 100MG TAB Active TAKE 2 TABLETS BY MOUTH FOUR TIMES A DAY FOR PARKINSON'S DISEASE. DO NOT TAKE WITH FOOD. 240 Nov 24, 2020 [id number] Nov 27, 2019 [facility] [place] CARBIDOPA 25MG/LEVODOPA 100MG TAB Discontinued TAKE T WO TABLETS BY MOUTH FIVE TIMES DAILY FOR PARKINSON'S DISEASE. DO NOT TAKE WITH FOOD. 600 Jul 02, 2020 [id number] Nov 19, 2019 [facility] CARBIDOPA 25MG/LEVODOPA 100MG TAB Discontinued TAKE 2 TABLETS BY MOUTH FIVE TIMES DAILY FOR PARKINSON'S DISEASE. DO NOT TAKE WITH FOOD. 300 Jun 30, 2020 [id number] Jul 01, 2019 [facility] [place] [facility] CARBIDOPA 25MG/LEVODOPA 100MG TAB Discontinued TAKE 2 TABLETS BY MOUTH FOUR TIMES A DAY FOR PARKINSON'S DISEASE. DO NOT TAKE WITH FOOD. 240 Jun 24, 2020 [id number] Jun 26, 2019 [facility] [place] CARBIDOPA 25MG/LEVODOPA 100MG TAB Discontinued TAKE 2 TABLETS BY MOUTH FOUR TIMES A DAY FOR PARKINSON'S DISEASE. DO NOT TAKE WITH FOOD. 240 Dec 25, 2019 [id number] May 15, 2019 [facility] CARBIDOPA 25MG/LEVODOPA 100MG TAB Discontinued TAKE 2 TABLETS BY MOUTH FOUR TIMES A DAY FOR PARKINSON'S DISEASE. DO NOT TAKE WITH FOOD. 240 Jun 07, 2019 [id number] Nov 18, 2018 [facility] [place] [facility] CHOLECALCIFEROL 25MCG (1,000UNIT) TAB Active: Susp TA KE TWO TABLETS BY MOUTH ONCE A DAY FOR VITAMIN D DEFICIENCY 200 Nov 20, 2020 [id number] Dec 172019 [facility] CHOLECALCIFEROL 25MCG (1,000UNIT) TAB Discontinued TA KE TWO TABLETS BY MOUTH ONCE A DAY FOR VITAMIN D DEFICIENCY 200 Dec 25, 2019 [id number] October [facility] [place] CHOLECALCIFEROL 25MCG (1,000UNIT) TAB Discontinued TA KE TWO TABLETS BY MOUTH ONCE A DAY FOR VITAMIN D DEFICIENCY 200 Oct 10, 2018 [id number] Aug 172018 [facility] CLOPIDOGREL BISULFATE 75MG TAB Active: Susp TAKE ONE TABLET BY MOUTH ONCE A DAY TO PREVENT BLOOD CLOTS 90 Apr 24, 2020 [id number] Dec 19, 2019 [facility] CLOPIDOGREL BISULFATE 75MG TAB Discontinued TAKE ONE TABLET BY MOUTH ONCE A DAY TO PREVENT BLOOD CLOTS 90 Jun 01, 2019 [id number] Mar 13, 2019 [facility] [place] [facility] DIPHENHYDRAMINE HCL 25MG CAP Non-VA TAKE 1 CAPSULE BY MOUTH EVERY 6 HOURS NEEDED Non-VA Documented by: KJ POTTER nted at: [facility] FLUDROCORTISONE ACETATE 0.1MG TAB Active TAKE ONE TABLET BY M OUTH ONCE A DAY 90 Nov 19, 2020 [id number] Nov 20, 2019 [facility] [place] [facility] FOLIC ACID 1MG TAB Non- VA TAKE ONE TABLET BY MOUTH ONCE A DAY N on-VA Documented by: KJ POTTER nted at: [facility] GABAPENTIN 300MG CAP Active TAKE 1 CAPSULE BY M OUTH 5 TIMES A DAY FOR PAIN AND TREMORS. 300 October 17, 2020 [id number] October 18, 2019 [facility] GABAPENTIN 300MG CAP Discontinued TAKE ONE CAPSULE BY MOUTH FOUR TIMES A DAY FOR PAIN AND TREMORS. 240 Jan 08, 2020 [id number] Oct 14, 2019 [facility] [place] [facility] GABAPENTIN 300MG CAP Discontinued TAKE ONE CAPSULE BY MOUTH FOUR TIMES A DAY FOR PAIN AND TREMORS. 240 Mar 08, 2019 [id number] Jan 07, 2019 [facility] [place] [facility] HYDROCODONE 10MG/ACETAMINOPHEN 325MG TAB Active TAKE ONE TABLET (10/325MG) BY MOUTH THREE TIMES A DAY NEEDED FOR PAIN CAUTION: DO NOT EXCEED 4000MG/DAY TOTAL OF ACETAMINOPHEN (APAP) FROM ALL MEDS 90 Dec 20, 2019 [id number] Nov 21, 2019 TARIQKJ SMITH [facility] HYDROCODONE 10MG/ACETAMINOPHEN 325MG TAB Discontinued TAKE ONE TABLET (10/325MG) BY MOUTH THREE TIMES A DAY NEEDED FOR PAIN CAUTION: DO NOT EXCEED 4000MG/DAY TOTAL OF ACETAMINOPHEN (APAP) FROM ALL MEDS 90 Sep 17, 2 [id number] Sep 04, 2019 [facility] [place] HYDROCODONE 10MG/ACETAMINOPHEN 325MG TAB Discontinued TAKE ONE TABLET BY MOUTH THREE TIMES A DAY NEEDED FOR PAIN CAUTION: DO NOT EXCEED 4000MG/DAY TOTAL OF ACETAMINOPHEN (APAP) FROM ALL MEDS 90 Jul 26, 2019 [id number] Jun 26, 2019 [facility] [place] [facility] HYDROCODONE 10MG/ACETAMINOPHEN 325MG TAB Discontinued TAKE ONE TABLET BY MOUTH THREE TIMES A DAY NEEDED FOR PAIN CAUTION: DO NOT EXCEED 4000MG/DAY TOTAL OF ACETAMINOPHEN (APAP) FROM ALL MEDS 90 Jun 27, 2019 [id number] May 29, 2019 [facility] [place] [facility] HYDROCODONE 10MG/ACETAMINOPHEN 325MG TAB Discontinued TAKE ONE TABLET BY MOUTH THREE TIMES A DAY NEEDED FOR PAIN CAUTION: DO NOT EXCEED 4000MG/DAY TOTAL OF ACETAMINOPHEN (APAP) FROM ALL MEDS 90 May 08, 2019 [id number] Apr 08, 2019 [facility] [place] HYDROCODONE 10MG/ACETAMINOPHEN 325MG TAB Discontinued TAKE ONE TABLET BY MOUTH THREE TIMES A DAY NEEDED FOR PAIN CAUTION: DO NOT EXCEED 4000MG/DAY TOTAL OF ACETAMINOPHEN (APAP) FROM ALL MEDS 90 Mar 28, 2019 [id number] Feb 26, 2019 [facility] [place] HYDROCODONE 10MG/ACETAMINOPHEN 325MG TAB Discontinued TAKE ONE TABLET BY MOUTH THREE TIMES A DAY NEEDED FOR PAIN CAUTION: DO NOT EXCEED 4000MG/DAY TOTAL OF ACETAMINOPHEN (APAP) FROM ALL MEDS 90 Feb 06, 2019 [id number] Jan 07, 2019 [facility] [place] HYDROCODONE 10MG/ACETAMINOPHEN 325MG TAB Discontinued TAKE ONE TABLET BY MOUTH THREE TIMES A DAY NEEDED FOR PAIN CAUTION: DO NOT EXCEED 4000MG/DAY TOTAL OF ACETAMINOPHEN (APAP) FROM ALL MEDS 90 Dec 05, 2018 [id number] November 05, 2018 [facility] [place] HYDROCODONE 10MG/ACETAMINOPHEN 325MG TAB Discontinued TAKE ONE TABLET BY MOUTH THREE TIMES A DAY NEEDED FOR PAIN CAUTION: DO NOT EXCEED 4000MG/DAY TOTAL OF ACETAMINOPHEN (APAP) FROM ALL MEDS 90 October 25, 2018 [id number] Sep 25, 2018 [facility] [place] HYDROCODONE 10MG/ACETAMINOPHEN 325MG TAB TAKE ONE TABLET (10/325MG) BY MOUTH THREE TIMES A DAY NEEDED FOR PAIN CAUTION: DO NOT EXCEED 4000MG/DAY TOTAL OF ACETAMINOPHEN (APAP) FROM ALL MEDS 90 November 16, 2019 [id number] October 18, 2019 [facility] METHOTREXATE NA 2.5MG TAB Active TAKE SEVEN TABLETS BY MOUTH EVERY WEEK 90 October 17, 2020 [id number] November 04, 2019 [facility] METHOTREXATE NA 2.5MG TAB Discontinued TAKE SEVEN TABLETS BY MOUTH EVERY WEEK 90 May 09, 2020 [id number] Aug 16, 2019 NASH KULKARNI [facility] METHOTREXATE NA 2.5MG TAB Discontinued TAKE SEVEN TABLETS BY MOUTH EVERY WEEK 90 Aug 04, 2019 [id number] Feb 22, 2019 [facility] [place] [facility] NORTRIPTYLINE HCL 10MG CAP Active TAKE 2 CAPSULES BY MO UTH AT BEDTIME NEEDED 120 Apr 02, 2020 [id number] Nov 20, 2019 [facility] [place] NORTRIPTYLINE HCL 10MG CAP Discontinued TAKE 2 CAPSUL ES BY MOUTH AT BEDTIME NEEDED 120 Mar 20, 2019 [id number] Jan 23, 2019 [facility] OMEPRAZOLE 20MG CAP,EC Active TAKE 1 CAPSULE BY MOUTH EVERY MORNING TO LOWER STOMACH ACID. TAKE 30 MINUTES PRIOR TO FOOD. 90 October 17, 2020 [id number] October 21, 2019 [facility] OMEPRAZOLE 20MG CAP,EC Discontinued TAKE 1 CAPSULE BY MOUTH EVERY MORNING TO LOWER STOMACH ACID. TAKE 30 MINUTES PRIOR TO FOOD. 90 Oct 02, 2019 [id number] Aug 02, 2019 [facility] [place] PREDNISONE 1MG TAB Discontinued TAKE THREE TABLETS B Y MOUTH ONCE A DAY FOR INFLAMMATION AND IMMUNE RESPONSE. TAKE WITH FOOD OR MILK. 270 Fe 2019 [id number] Apr 24, 2019 [facility] PREDNISONE 1MG TAB Discontinued TAKE FOUR TABLETS BY MOUTH ONCE A D AY 360 Apr 22, 2019 [id number] Jan 24, 2019 [facility] [place] PREDNISONE 1MG TAB Discontinued TAKE FOUR TABLETS BY MOUTH ONCE A D AY 360 Dec 29, 2018 [id number] Oct 01, 2018 [facility] KULKARNI [facility] PREDNISONE 1MG TAB TAKE THREE TABLETS B Y MOUTH ONCE A DAY FOR INFLAMMATION AND IMMUNE RESPONSE. TAKE WITH FOOD OR MILK. 270 Ap r 2019 [id number] Jul 13, 2019 [facility] [place] [facility] PREDNISONE 5MG TAB Discontinued TAKE ONE TABLET BY MOUTH ONCE A DAY WITH FOOD 60 Aug 01, 2019 [id number] Sep 25, 2018 [facility] [place] ROPINIROLE HCL 1MG TAB Active TAKE ONE TABLET BY MOUTH AT BED TIME 90 October 17, 2020 [id number] Nov 25, 2019 [facility] ROPINIROLE HCL 1MG TAB Discontinued TAKE ONE TABLET BY MOUTH AT BED TIME 90 Dec 05, 2019 [id number] Sep 03, 2019 [facility] [place] [facility] ROPINIROLE HCL 1MG TAB Discontinued TAKE ONE TABLET BY MOUTH AT BED TIME 90 Dec 13, 2018 [id number] Sep 12, 2018 [facility] [place] [facility] TAMSULOSIN HCL 0.4MG CAP Active: Susp TAKE 1 CAPSULE BY MOUTH ONCE A DAY FOR PROSTATE. TAKE AT THE SAME TIME EACH DAY WITH FOOD. 90 Sep 30 1 [id number] Dec 20, 2019 [facility] [place] TAMSULOSIN HCL 0.4MG CAP Discontinued TAKE 1 CAPSULE BY MOUTH ONCE A DAY FOR PROSTATE. TAKE AT THE SAME TIME EACH DAY WITH FOOD. 90 Sep 12 0 [id number] Jun 24, 2019 LIS BRUCE [facility] [place] [facility] Problems (Conditions): All historical and current Section Date Range: From patient's date of to the date document was create d. This section includes a list of Problems (Conditions) know n to VA for the patient. It includes both active and inacti ve problems (conditions). The data comes from all [place] treatment facilities. Problem Status Problem Code Date of Onset Date of Resolution Comm ent(s) Provider Source Abnormal radiologic density Active [id number] KJ HWANG [facility] [place] [facility] Allergic rhinitis Active 58170734 LADY SALAZAR [facility] [place] [facility] Anemia Active 241539570 KJ POTTER [facility] [place] [facility] Chest pain (SNOMED CT 09942741) Active 786.50 KJ POTTER [facility] [place] [facility] Chondrocalcinosis Active 880014128 YOU GOMEZ [facility] [place] [facility] Chronic obstructive lung disease Active 75364648 KJ POTTER [facility] [place] [facility] Coronary artery disease Active 40046018 Angella [facility] [place] [facility] Cough Active 06477652 LADY SALAZAR [place] Angella Love [facility] [place] Cough (SNOMED CT 67859409) Active 786.2 KJ BARRON [facility] [place] [facility] Dysarthria (SNOMED CT 2059049) Active 784.51 M KJ WONG [facility] [place] [facility] Dyspnea (SNOMED CT 471944433) Active 786.09 KJ [facility] [facility] [place] [facility] Eruption due to drug Active 61757289 TARIQAbdiaziz [facility] [place] [facility] Gastroesophageal reflux disease Active 049550250 KJ POTTER [facility] [place] [facility] Hallux valgus AND bunion Active 789074193 ALEXANDRO HDEISY M [facility] [place] [facility] Joint pain (SNOMED CT 78158290) Active 719.40 DEISY CONTRERAS Royce [facility] [place] [facility] Joint swelling (SNOMED CT 794500339) Active 719.00 KJ POTTER [facility] [place] [facility] Knee pain Active 37171711 JENNIFER LINDSEY [facility] [place] [facility] Muscle weakness (SNOMED CT 35794221) Active 728.87 [facility]IQKJ [facility] [place] [facility] Neuropathy Active 688239824 KJ POTTER RN [facility] [place] Osteoarthritis Active 715.36 DYAN [facility] [place] [facility] Parkinson's disease Active 27149902 ETHAN POTTER [facility] [place] [facility] Peripheral Neuropathy Active 356.9 DASARAZORAIDA,P URUSHOTHAMA V [facility] [place] [facility] Personal History of Exposure to Agent Bedrock Active V15.89 DEISY CONTRERAS [facility] [place] [facility] Polyp of colon (SNOMED CT 90405229) Active 211.3 TARIQKJ SMITH [facility] [place] [facility] Restless legs Active 20016533 PATRICK WHITE [facility] [place] Rheumatoid arthritis Active 93268966 Abdiaziz POTTER [facility] [place] [facility] Screening, Malignancy Active V76.89 LISSETH [facility] [facility] [place] [facility] Sleep apnea Active 24533536 KJ POTTER RN [facility] [place] Synovial cyst of popliteal space (SNOMED CT 06248353) Active 727.51 TARIQKJ SMITH [facility] [place] [facility] Tobacco dependence in remission Active 990262860 KJ POTTER [facility] [place] [facility] Tobacco use Active 903414673 JENNIFER LINDSEY [facility] [place] Tremor Active 89961810 JENNIFER LINDSEY K S [facility] [place] [facility] Unresolved Active 47325737 JENNIFER LINDSEY [facility] [place] [facility] Unresolved Active 99513335 JENNIFER LINDSEY [facility] [place] [facility] Radiology Reports: +/- 30 days of the encounter No Data Provided for This Section Pathology Reports: +/- 30 days of the encounter No Data Provided for This Section Encounter Notes: All associated encounter notes This section contains the clinical notes associated to the Encounter. Date/Time Encounter Note(s) Provider Source Jul 10, 2019 07:30 AM LETTERS: LOCAL TITLE: COMMUNITY CARE-PATIENT LETTER (EK) STANDARD TITLE: LETTERS DATE OF NOTE: JUL 10, 2019@07:30 ENTRY DATE: JUL 10, 2019@07:30:11 AUTHOR: DAMARIS LIND COSIGNER: URGENCY: STATUS: COMPLETED Department [facility] [place] [address] [place] [address] JUL 10, 2019 CARLOS ROMANO [address] [place], [place], [address] Dear CARLOS ROMAON Your VA provider has referred you to a healthcare provider in the community. Your referral for care has been authorized and an appointment has been scheduled with the community provider as follows: Appointment Date & Time: 10/27/19@0945 Community Provider: [facility] Address: [facility] [place] [address] Services Authorized: CT SCAN Service Period: 05/10/2019--12/19/2019 DATES SUBJECT TO CHANGE Authorization Number: [id number] Auth #: [id number] This authorization is limited to VA payment for the service(s) and timeframe listed above. IF CONTINUED OR ADDITIONAL SERVICES ARE NEEDED, A NEW AUTHORIZATION FROM THE [place] IS REQUIRED. FOR CARE SCHEDULED AT [facility]: To access [facility], you will need to present your VA ID card with a picture on it, have no firearms in your vehicle, and have no felonies. Individuals who accompany you without a VA ID card must also have no felonies and will need to receive security clearance to access [facility]. This security clearance for individuals without a VA ID card may take up to 30 minutes to complete. Please plan to arrive early, accordingly. If you are unable to keep this appointment or the appointment is no longer needed, please call [phone] extension [phone] Please bring any VA provided documentation or applicable radiology images with you to your appointment with the community provider. IMPORTANT INFORMATION: -Any ROUTINE MEDICATIONS prescribed by the community provider must be filled at a VA Pharmacy and must also follow the [place] National Formulary. -Any URGENTLY NEEDED MEDICATIONS the community provider believes cannot wait to be filled at a VA pharmacy may be filled at a community pharmacy of your choice and you may submit a reimbursement claim to [place] for the cost of the prescription. These URGENT medications are limited to a 14-day supply and must also follow the [place] National Formulary To request reimbursement, please send a copy of the prescription and a copy of the receipt to: [place] Claims Adjudication and Reimbursement [address] [facility] [id number] [facility], [address] -Any Medical Equipment, Device, or Appliance (example: TENS unit, walker, home oxygen, commode, handrails, etc.) ordered by a Non VA Provider MUST BE supplied by the [place]. A prescription must be submitted to the VA in order for the equipment to be issued and provided by the VA. -If you are required to pay a VA co-payment, you will be billed a VA co-payment for each authorized visit attended. You are NOT REQUIRED to make co-payments to a community provider. Questions related to this authorization may be addressed to the [place] Community Care department via Secure Messaging or via Telephone @ [phone] extension [phone]. Thank you for the opportunity to serve you. [facility] Community [facility] [address] [facility]. RONALD [place]m [address] DAMARIS LIND [facility]
--- OUTSIDE RECORDS SUMMARY | 2019-12-04 21:59 | XMS REPORT | Encounter Summary ---
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 Date/Time Encounter Type Encounter Description Reason Provider Source Aug 12, 2019 10:11 AM Outpatient Encounter [facility] IHE Encounter Template Text not used by MS Assessments - Encounter Diagnoses No Data Provided for This Section Plan of Treatment: Future Appointments (+ 6 months) and Future Tests (+/- 45 day s) The Plan of Treatment section includes future care activities for the patient fr om all MS treatment facilities. This section includes future appointments [...] 17, 2019 09:00 AM AM[facility] October 27, 2019 09:45 AM AMBULATORY - NONE [facility] Nov 20, 2019 05:00 PM AMBULATORY - MEDIC[facility] Nov 24, 2019 11:20 AM AMBULATORY - NONE [facility] Dec 02, 2019 10:30 AM AMBULATORY - NONE [facility] Dec 03, 2019 12:30 PM [facility] Dec 04, 2019 10:45 AM [facility] Dec 10, 2019 01:30 PM [facility] Jan 06, 2020 10:30 AM AM[facility]ULAT[facility] - MEDIC[facility] Active, Pending, and Scheduled Orders [...] PM Consult Order TO-NEUROLOGY OUTPT -[id number] Cons Appointment Coordinator's Choice [facility] Sep 03, 2019 03:01 PM Consult Order COMMUNITY CARE-EK EYE OPTOMETRY-[id number] Cons Appointment Coordinator's Choice [facility] Surgical Procedures: All associated to the encounter No Data Provided for This Section Lab Results: +/- 30 days of the encounter This section includes the Chemistry and Hematology Lab R esults on record with MS for the patient. Radiology Reports and Pathology Report s are provided separately, in subsequent sections. Lab Results This section contains the Chemistry/Hematology Results juan t were resulted 30 days before or 30 days after the date of the Encounter. Date/Time Source Result Type Result - Unit Interpretation Reference Range Comment Aug 06, 2019 12:27 PM [facility] CBC & DIFF Specimen Type: BLOOD [...] Aug 06, 2019 12:27 PM [facility] COMPREHENSIVE METABOLI C PANEL Specimen Type: [...] Aug 06, 2019 12:27 PM [facility] C-REACTIVE PROTEIN Specimen Type: SERUM No comment entered. C-REACTIVE PROTEIN 20.37 mg/dL H 0.0-0.5 Aug 06, 2019 12:27 PM [facility] ERYTHROCYTE SEDIMENTAT ION RATE Specimen Type: [...] Adverse Reactions (ADR s) on record with MS for the patient. The data comes from a ll MS treatment facilities. It does not list Allergies/ADRs that were removed or entered in error. Some allergies/ADRs may be reported in t Immunization section. Allergen Event Date Event Type Reaction(s) Severity Source PANTOPRAZOLE Oct 01, 2018 Propensity to adverse reactions to drug (disorder) Eruption [facility] 15 PENICILLIN Jul 17, 2012 Propensity to adverse reactions to drug (disorder) Peripheral edema [facility] 15 Medications: VA dispensed (-15 months) and Non-VA Documented (Obtained Outside [facility]) Section Date Range: 1) prescriptions processed by a VA pharmacy in the last [address] [facility], and 2) all medications recorded in the MS medical record as "non-VA medic ations". Pharmacy terms refer to MS pharmacy's work on prescriptions. VA patient s are advised to take their medications as instructed by their health care team. The data comes from all MS treatment facilities. Glossary of Pharmacy Terms:Active = A prescription that can be filled at the local MS pharmacy.Active: On Hold = An active prescription that will not be filled until pharmacy resolves the issue.Active: Susp = An active prescription that is not scheduled to be filled yet.Clinic Order = A medication received during a visit to a MS clinic or emergency department (currently not available).Discontinued = A prescription stopped by a MS provider. It is no longer available to be filled. = A prescription which is too old to fill. This does not refer to the expiration date of the medication in the container. Non-VA = A medication that came from someplace other than a MS pharmacy. This may be a prescription from either the MS or other providers that was filled outside the MS. Or, it may be an over the [...] FOR INHALATION ONCE 1 Nov 16, 2018 [id number] October 17, 2018 KJ POTTER [facility] ALBUTEROL SO4 90MCG/ACTUAT (CFC-F) INHL,ORAL,6.7GM Active INHALE 2 PUFFS BY ORAL INHALATION FOUR TIMES A DAY NEEDED - RINSE MOUTHPIECE FREQUENTLY TO PREVENT CLOGGING 1 Apr 24, 2020 [id number] October 18, 2019 KJ POTTER [facility] ALBUTEROL SO4 90MCG/ACTUAT (CFC-F) INHL,ORAL,6.7GM Discontin ued INHALE 2 PUFFS BY ORAL INHALATION FOUR TIMES A DAY NEEDED - RINSE MOUTHPIECE FREQUENTLY TO PREVENT CLOGGING 2 Apr 24, 2020 [id number] Apr 24, 2019 KJ POTTER [facility] BUDESONIDE 160MCG/FORMOTEROL FUM 4.5MCG/SPRAY INHL,ORAL,10.2 GM Active INHALE 2 PUFFS BY ORAL INHALATION TWO TIMES A DAY FOR BREATHING. SHAKE WELL. RINSE MOUTH AND SPIT AFTER EACH USE. 2 Apr 24, 2020 [id number] October 17, 2019 KJ JOSHI [facility] CALCIUM 500MG (CA CARBONATE-1.25GM) TAB Active: Susp TAKE ONE TABLET BY MOUTH TWO TIMES A DAY 180 Nov 20, 2020 [id number] Jan 09, 2020 BRAYDEN POTTERHector [facility] CALCIUM 500MG (CA CARBONATE-1.25GM) TAB Discontinued TAKE ONE TABLET BY MOUTH TWO TIMES A DAY 180 Jan 08, 2020 [id number] October 21, 2019 TARIQKJ [facility] [place] [facility] CALCIUM 500MG (CA CARBONATE-1.25GM) TAB Discontinued TAKE ONE TABLET BY MOUTH TWO TIMES A DAY 180 Dec 29, 2018 [id number] Oct 01, 2018 NASH KULKARNI ToshiaJose FAYEChad [facility] CARBIDOPA 25MG/LEVODOPA 100MG TAB Active TAKE 2 TABLETS BY MOUTH FOUR TIMES A DAY FOR PARKINSON'S DISEASE. DO NOT TAKE WITH FOOD. 240 Nov 24, 2020 [id number] Nov 27, 2019 [facility] [place] [facility] CARBIDOPA 25MG/LEVODOPA 100MG TAB Discontinued TAKE T WO TABLETS BY MOUTH FIVE TIMES DAILY FOR PARKINSON'S DISEASE. DO NOT TAKE WITH FOOD. 600 Jul 02, 2020 [id number] Nov 19, 2019 [facility] CARBIDOPA 25MG/LEVODOPA 100MG TAB Discontinued TAKE 2 TABLETS BY MOUTH FIVE TIMES DAILY FOR PARKINSON'S DISEASE. DO NOT TAKE WITH FOOD. 300 Jun 30, 2020 [id number] Jul 01, 2019 [facility] CARBIDOPA 25MG/LEVODOPA 100MG TAB Discontinued TAKE 2 TABLETS BY MOUTH FOUR TIMES A DAY FOR PARKINSON'S DISEASE. DO NOT TAKE WITH FOOD. 240 Jun 24, 2020 [id number] Jun 26, 2019 [facility] CARBIDOPA 25MG/LEVODOPA 100MG TAB Discontinued TAKE 2 TABLETS BY MOUTH FOUR TIMES A DAY FOR PARKINSON'S DISEASE. DO NOT TAKE WITH FOOD. 240 Dec 25, 2019 [id number] May 15, 2019 [facility] CARBIDOPA 25MG/LEVODOPA 100MG TAB Discontinued TAKE 2 TABLETS BY MOUTH FOUR TIMES A DAY FOR PARKINSON'S DISEASE. DO NOT TAKE WITH FOOD. 240 Jun 07, 2019 [id number] Nov 18, 2018 [facility] CHOLECALCIFEROL 25MCG (1,000UNIT) TAB Active: Susp TA KE TWO TABLETS BY MOUTH ONCE A DAY FOR VITAMIN D DEFICIENCY 200 Nov 20, 2020 [id number] Dec 172019 [facility] CHOLECALCIFEROL 25MCG (1,000UNIT) TAB Discontinued TA KE TWO TABLETS BY MOUTH ONCE A DAY FOR VITAMIN D DEFICIENCY 200 Dec 25, 2019 [id number] [facility] CHOLECALCIFEROL 25MCG (1,000UNIT) TAB Discontinued TA KE TWO TABLETS BY MOUTH ONCE A DAY FOR VITAMIN D DEFICIENCY 200 Oct 10, 2018 [id number] Aug 172018 [facility] CLOPIDOGREL BISULFATE 75MG TAB Active: Susp TAKE ONE TABLET BY MOUTH ONCE A DAY TO PREVENT BLOOD CLOTS 90 Apr 24, 2020 [id number] Dec 19, 2019 [facility] CLOPIDOGREL BISULFATE 75MG TAB Discontinued TAKE ONE TABLET BY MOUTH ONCE A DAY TO PREVENT BLOOD CLOTS 90 Jun 01, 2019 [id number] Mar 13, 2019 [facility] [place] [facility] DIPHENHYDRAMINE HCL 25MG CAP Non-VA TAKE 1 CAPSULE BY MOUTH EVERY 6 HOURS NEEDED Non-VA Documented by: KJ POTTER nted at: [facility] FLUDROCORTISONE ACETATE 0.1MG TAB Active TAKE ONE TABLET BY M OUTH ONCE A DAY 90 Nov 19, 2020 [id number] Nov 20, 2019 [facility] [place] [facility] FOLIC ACID 1MG TAB Non- VA TAKE ONE TABLET BY MOUTH ONCE A DAY N on-VA Documented by: KJ POTTER nted at: [facility] GABAPENTIN 300MG CAP Active TAKE 1 CAPSULE BY M OUTH 5 TIMES A DAY FOR PAIN AND TREMORS. 300 October 17, 2020 [id number] October 18, 2019 [facility] GABAPENTIN 300MG CAP Discontinued TAKE ONE CAPSULE BY MOUTH FOUR TIMES A DAY FOR PAIN AND TREMORS. 240 Jan 08, 2020 [id number] Oct 14, [facility] GABAPENTIN 300MG CAP Discontinued TAKE ONE CAPSULE BY MOUTH FOUR TIMES A DAY FOR PAIN AND TREMORS. 240 Mar 08, 2019 [id number] Jan 07, 2019 [facility] HYDROCODONE 10MG/ACETAMINOPHEN 325MG TAB Active TAKE ONE TABLET (10/325MG) BY MOUTH THREE TIMES A DAY NEEDED FOR PAIN CAUTION: DO NOT EXCEED 4000MG/DAY TOTAL OF ACETAMINOPHEN (APAP) FROM ALL MEDS 90 Dec 20, 2019 [id number] Nov 21, 2019 TARIQKJ [facility] HYDROCODONE 10MG/ACETAMINOPHEN 325MG TAB Discontinued TAKE ONE TABLET (10/325MG) BY MOUTH THREE TIMES A DAY NEEDED FOR PAIN CAUTION: DO NOT EXCEED 4000MG/DAY TOTAL OF ACETAMINOPHEN (APAP) FROM ALL MEDS 90 Sep 17, 2 020 [id number] Sep 04, 2019 TARIQ,[facility] [place] [facility] HYDROCODONE 10MG/ACETAMINOPHEN 325MG TAB Discontinued TAKE ONE TABLET BY MOUTH THREE TIMES A DAY NEEDED FOR PAIN CAUTION: DO NOT EXCEED 4000MG/DAY TOTAL OF ACETAMINOPHEN (APAP) FROM ALL MEDS 90 Jul 26, 2019 [id number] Jun 26, 2019 TARIQ,[facility] HYDROCODONE 10MG/ACETAMINOPHEN 325MG TAB Discontinued TAKE ONE TABLET BY MOUTH THREE TIMES A DAY NEEDED FOR PAIN CAUTION: DO NOT EXCEED 4000MG/DAY TOTAL OF ACETAMINOPHEN (APAP) FROM ALL MEDS 90 Jun 27, 2019 [id number] May 29, [address] [facility] [place] [facility] HYDROCODONE 10MG/ACETAMINOPHEN 325MG TAB Discontinued TAKE ONE TABLET BY MOUTH THREE TIMES A DAY NEEDED FOR PAIN CAUTION: DO NOT EXCEED 4000MG/DAY TOTAL OF ACETAMINOPHEN (APAP) FROM ALL MEDS 90 May 08, 2019 [id number] Apr 08, 2019 TARIQ,[facility] [place] [facility] HYDROCODONE 10MG/ACETAMINOPHEN 325MG TAB Discontinued TAKE ONE TABLET BY MOUTH THREE TIMES A DAY NEEDED FOR PAIN CAUTION: DO NOT EXCEED 4000MG/DAY TOTAL OF ACETAMINOPHEN (APAP) FROM ALL MEDS 90 Mar 28, 2019 [id number] Feb 26, 2019 TARIQ,[facility] [place] [facility] HYDROCODONE 10MG/ACETAMINOPHEN 325MG TAB Discontinued TAKE ONE TABLET BY MOUTH THREE TIMES A DAY NEEDED FOR PAIN CAUTION: DO NOT EXCEED 4000MG/DAY TOTAL OF ACETAMINOPHEN (APAP) FROM ALL MEDS 90 Feb 06, 2019 [id number] Jan 07, 2019 [facility] [place] [facility] HYDROCODONE 10MG/ACETAMINOPHEN 325MG TAB Discontinued TAKE ONE TABLET BY MOUTH THREE TIMES A DAY NEEDED FOR PAIN CAUTION: DO NOT EXCEED 4000MG/DAY TOTAL OF ACETAMINOPHEN (APAP) FROM ALL MEDS 90 Dec 05, 2018 [id number] November 05, 2018 [facility] [place] [facility] HYDROCODONE 10MG/ACETAMINOPHEN 325MG TAB Discontinued TAKE ONE TABLET BY MOUTH THREE TIMES A DAY NEEDED FOR PAIN CAUTION: DO NOT EXCEED 4000MG/DAY TOTAL OF ACETAMINOPHEN (APAP) FROM ALL MEDS 90 October 25, 2018 [id number] Sep 25, 2018 [facility] [place] [facility] HYDROCODONE 10MG/ACETAMINOPHEN 325MG TAB TAKE ONE TABLET (10/325MG) BY MOUTH THREE TIMES A DAY NEEDED FOR PAIN CAUTION: DO NOT EXCEED 4000MG/DAY TOTAL OF ACETAMINOPHEN (APAP) FROM ALL MEDS 90 November 16, 2019 [id number] October 18, 2019 [facility] METHOTREXATE NA 2.5MG TAB Active TAKE SEVEN TABLETS BY MOUTH EVERY WEEK 90 October 17, 2020 [id number] November 04, 2019 [facility] METHOTREXATE NA 2.5MG TAB Discontinued TAKE SEVEN TABLETS BY MOUTH EVERY WEEK 90 May 09, 2020 [id number] Aug 16, 2019 NASH KULKARNI [facility] METHOTREXATE NA 2.5MG TAB Discontinued TAKE SEVEN TABLETS BY MOUTH EVERY WEEK 90 Aug 04, 2019 [id number] Feb 22, 2019 YOU GOMEZ [facility] NORTRIPTYLINE HCL 10MG CAP Active TAKE 2 CAPSULES BY MO UTH AT BEDTIME NEEDED 120 Apr 02, 2020 [id number] Nov 20, 2019 [facility] [place] [facility] NORTRIPTYLINE HCL 10MG CAP Discontinued TAKE 2 CAPSUL ES BY MOUTH AT BEDTIME NEEDED 120 Mar 20, 2019 [id number] Jan 23, 2019 [facility] OMEPRAZOLE 20MG CAP,EC Active TAKE 1 CAPSULE BY MOUTH EVERY MORNING TO LOWER STOMACH ACID. TAKE 30 MINUTES PRIOR TO FOOD. 90 October 17, 2020 [id number] October 21, 2019 [facility] OMEPRAZOLE 20MG CAP,EC Discontinued TAKE 1 CAPSULE BY MOUTH EVERY MORNING TO LOWER STOMACH ACID. TAKE 30 MINUTES PRIOR TO FOOD. 90 Oct 02, 2019 [id number] Aug 02, 2019 [facility] [place] [facility] PREDNISONE 1MG TAB Discontinued TAKE THREE TABLETS B Y MOUTH ONCE A DAY FOR INFLAMMATION AND IMMUNE RESPONSE. TAKE WITH FOOD OR MILK. 270 Fe 2019 [id number] Apr 24, 2019 [facility] PREDNISONE 1MG TAB Discontinued TAKE FOUR TABLETS BY MOUTH ONCE A D AY 360 Apr 22, 2019 [id number] Jan 24, [address] [facility] [place] [facility] PREDNISONE 1MG TAB Discontinued TAKE FOUR TABLETS BY MOUTH ONCE A D AY 360 Dec 29, 2018 [id number] Oct 01, 2018 NASH KULKARNI V [facility] PREDNISONE 1MG TAB TAKE THREE TABLETS B Y MOUTH ONCE A DAY FOR INFLAMMATION AND IMMUNE RESPONSE. TAKE WITH FOOD OR MILK. 270 Ap r 2019 [id number] Jul 13, 2019 [facility] PREDNISONE 5MG TAB Discontinued TAKE ONE TABLET BY MOUTH ONCE A DAY WITH FOOD 60 Aug 01, 2019 [id number] Sep 25, 2018 [facility] [place] [facility] ROPINIROLE HCL 1MG TAB Active TAKE ONE TABLET BY MOUTH AT BED TIME 90 October 17, 2020 [id number] Nov 25, 2019 [facility] ROPINIROLE HCL 1MG TAB Discontinued TAKE ONE TABLET BY MOUTH AT BED TIME 90 Dec 05, 2019 [id number] Sep 03, 2019 KRYSTAL DEJESUS [facility] ROPINIROLE HCL 1MG TAB Discontinued TAKE ONE TABLET BY MOUTH AT BED TIME 90 Dec 13, 2018 [id number] Sep 12, 2018 [facility] [place] [facility] TAMSULOSIN HCL 0.4MG CAP Active: Susp TAKE 1 CAPSULE BY MOUTH ONCE A DAY FOR PROSTATE. TAKE AT THE SAME TIME EACH DAY WITH FOOD. 90 Sep 30 1 [id number] Dec 20, 2019 [facility] [place] [facility] TAMSULOSIN HCL 0.4MG CAP Discontinued TAKE 1 CAPSULE BY MOUTH ONCE A DAY FOR PROSTATE. TAKE AT THE SAME TIME EACH DAY WITH FOOD. 90 Sep 12 0 [id number] Jun 24, 2019 LIS BRUCE [facility] Problems (Conditions): All historical and current Section Date Range: From patient's date of to the date document was create d. This section includes a list of Problems (Conditions) know n to VA for the patient. It includes both active and inacti ve problems (conditions). The data comes from all [place] treatment facilities. Problem Status Problem Code Date of Onset Date of Resolution Comm ent(s) Provider Source Abnormal radiologic density Active [id number] KJ HWANG [facility] Allergic rhinitis Active 88011106 LADY SALAZAR [facility] Anemia Active 742752973 KJ POTTER [facility] Chest pain (SNOMED CT 35175995) Active 786.50 KJ POTTER [facility] Chondrocalcinosis Active 702175984 JASONYOU SOLIS [facility] Chronic obstructive lung disease Active 63121492 KJ POTTER [facility] Coronary artery disease Active 52345193 Angella LINDSEY [facility] Cough Active 30279028 LADY SALAZAR S [facility] [place] [facility] Cough (SNOMED CT 13225603) Active 786.2 KJ BARRON [facility] Dysarthria (SNOMED CT 5418182) Active 784.51 M KJ WONG [facility] Dyspnea (SNOMED CT 976755730) Active 786.09 KJ BARKSDALE [facility] Eruption due to drug Active 58156884 TRAIQAbdiaziz CHUNG [facility] Gastroesophageal reflux disease Active 480260910 KJ POTTER [facility] Hallux valgus AND bunion Active 472555550 DEISY GERMAIN Royce [facility] Joint pain (SNOMED CT 32423367) Active 719.40 DEISY CONTRERAS Royce [facility] Joint swelling (SNOMED CT 143467121) Active 719.00 KJ POTTER [facility] Knee pain Active 47160414 JENNIFER LINDSEY [facility] Muscle weakness (SNOMED CT 37044163) Active 728.87 KJ POTTER [facility] Neuropathy Active 514352430 KJ POTTER RN [facility] [place] [facility] Osteoarthritis Active 715.36 DYAN SERVIN [facility] Parkinson's disease Active 69103470 TARIQETHAN PATIÑO [facility] Peripheral Neuropathy Active 356.9 DASARAZORAIDA,P URUSHOTHAMA V [facility] Personal History of Exposure to Agent Mercer Active V15.89 DEISY CONTRERAS [facility] Polyp of colon (SNOMED CT 49191981) Active 211.3 KJ POTTER [facility] Restless legs Active 06926501 PATRICK WHITE [facility] [place] [facility] Rheumatoid arthritis Active 27754044 Abdiaziz POTTER [facility] Screening, Malignancy Active V76.89 LISSETH TOLEDO [facility] [facility] Sleep apnea Active 54260434 KJ POTTER RN [facility] [place] [facility] Synovial cyst of popliteal space (SNOMED CT 17501801) Active 727.51 KJ POTTER [facility] Tobacco dependence in remission Active 217242172 TARIQKJ [facility] Tobacco use Active 344346013 JENNIFER LINDSEY [facility] [place] [facility] Tremor Active 26597967 JENNIFER LINDSEY K S [facility] [place] [facility] Unresolved Active 21929506 JENNIFER LINDSEY N [facility] [place] [facility] Unresolved Active 13776693 JENNIFER LINDSEY [facility] Radiology Reports: +/- 30 days of the encounter No Data Provided for This Section Pathology Reports: +/- 30 days of the encounter No Data Provided for This Section Encounter Notes: All associated encounter notes This section contains the clinical notes associated to the Encounter. Date/Time Encounter Note(s) Provider Source Aug 12, 2019 10:11 AM NONVA NOTE: LOCAL TITLE: COMMUNITY CARE-SCHEDULING STANDARD TITLE: NONVA NOTE DATE OF NOTE: AUG 12, 2019@10:11 ENTRY DATE: AUG 12, 2019@10:11:16 AUTHOR: CHARLA WILSON COSIGNER: URGENCY: STATUS: COMPLETED Patient Centered Community Care (PC3) Program Department of [facility] Choice Approval for Medical Care VA-Form [id number] Certain protected health information (PHI) may be enclosed; specifically information related to Drug Abuse, Alcoholism or Alcohol Abuse, Sickle Cell Anemia, and Human Immunodeficiency Virus (HIV). This specific PHI may NOT be re-disclosed or used by the recipient person or office for any purpose other than that for which the disclosure was made. [Ref. 38 [facility] 7332(b)(2)(H)(ii)] The information is b eing disclosed by MS only for the treatment and care of the named patient in the health record. Accounting of disclosure must be maintained when required. Referral Urgency: Routine Indicate time frame for appointment: Clinically Indicated Date (CURRY): Aug Category of Care/Type of Specialty: NEUROLOGY Type of Specialist: NEUROLOGIST Type of Service/Procedure: PARKINSONS DIESEASE Procedural Overview: 1. Initial outpatient evaluation and treatment for the referred condition on the consult 2. Diagnostic imaging relevant to the referred condition on the consult 3. Labs and pathology services relevant to the referred condition on the consult 4. Procedures/Studies relevant to the referred condition including but not limited to: EEG, 24-hour EEG, VAER/ARSH, EMG/NCS, botox injections, lumbar puncture, biopsy, etc. 5. Pre-operative medical and cardiac clearance as indicated, to include H+P/labs, EKG, CXR 6. Anesthesia consultation related to the procedure 7. Inpatient or observation admission for procedure if indicated 8. Inpatient admission or observation status for complications related to the procedure VA notification within 72 hours to Facility Community Care Office who initiated the referral is required for complications related to the initial procedure 9. Follow-up visits for this episode of care 10. Infusion therapy in clinic or hydration as clinically indicated for the referred condition on the consult. Medications administered in the clinical setting covered as ordered, not individually coded on the episode of care. Must utilize MS formulary and non-formulary approval process. 1. Initial outpatient evaluation and treatment for the referred condition on the consult 2. Diagnostic imaging relevant to the referred condition on the consult 3. Labs and pathology services relevant to the referred condition on the consult 4. Procedures/Studies relevant to the referred condition including but not limited to: EEG, 24-hour EEG, VAER/ARSH, EMG/NCS, botox injections, lumbar puncture, biopsy, etc. 5. Pre-operative medical and cardiac clearance as indicated, to include H+P/labs, EKG, CXR 6. Anesthesia consultation related to the procedure 7. Inpatient or observation admission for procedure if indicated 8. Inpatient admission or observation status for complications related to the procedure VA notification within 72 hours to Facility Community Care Office who initiated the referral is required for complications related to the initial procedure 9. Follow- up visits for this episode of care 10. Infusion therapy in clinic or hydration as clinically indicated for the referred condition on the consult. Medications administered in the clinical setting covered as ordered, not individually coded on the episode of care. Must utilize MS formulary and non-formulary approval process. Disclaimer: Additional Information: *Please visit the [facility] Storefront www.[place]/COMMUNITYCARE/providers/index.asp for additional resources and requirements pertaining to the following * Pharmacy prescribing requirements * Durable Medical Equipment (DME), Prosthetics, and Orthotics prescribing requirements * Precertification (PRCT) process requirements * Request for Services (RFS) requirements Number of Visits, Frequency, and Duration: 180 DAYS or [facility] Preferred Provider Name and Contact Information: Alfredito Bran [place] Eligibility Verification: As the authorized VA chemical sales representative, I hereby confirm that the is eligible for [facility] services. The 's basic eligibility was verified on Jul. Contact the Facility Community Care Office first to provide information to the VA or to reach a VA ordering provider. All contact from the contractor will be documented in the [place]'s record by the facility [facility] and the VA provider will be notified for awareness. Report all Critical Findings related to this authorization to the issuing office below. All other questions regarding this authorization should be directed to: [facility] Facility: [facility] [place] [facility] ([facility]) Contact:[phone] [facility] [place] [facility]) Molded Candles Wicker or Equivalent: Name: Bushra Montesinos Title: [facility] Community Care Varitypist Contact Number (Normal Business Hours):[phone] AOD/Emergency Contact After Hours Number:[phone] From Station Number: [id number] Facility Name: [facility] Address: [address] [place] [address] Blvd. T-CC City: [place] State: [place] Zip: [address] Information: Name: CARLOS ROMANO : Dec SSN: [id number] Address: [address], [place] [address] 's Alternate [place]'s Alternate Address: In accordance with 38 CFR [phone], [place] will pay for non-VA hospital care and medical services that are authorized by [place] for Veterans who are determined by [place] to meet the Veterans Choice Program eligibility criteria set forth by section 101 of the Act and 38 CFR 17.1510 and any other eligibility standards that may apply to particular services (such as health care for newborns of Veterans under 38 CFR 17.38(a)(xiv) and dental benefits under 17.160-17.169). /sofya/ CHARLA WILSON [facility] Signed: 08/12/2019 10:16 CHARLA WILSON [facility]
--- OUTSIDE RECORDS SUMMARY | 2019-12-04 21:59 | XMS REPORT | Encounter Summary ---
Author Author [facility] CARLOS sweeney Organization Department of [facility] Address [address] [place] [id number] Phone Unavailable Care Team Providers Care Subway Guard Name Role Phone TARIQKOURTNEY PCP Unavailable Insurance [...] PLAN G MEDICARE SUPPLEMENT Dec PLAN G [id number] [phone] ROSALINACARLOS PATIENT MEDICARE (WNR) MEDICARE (M) PART A Dec 16, 2014 PART A [id number] ROSALINACARLOS PATIENT MEDICARE (WNR) MEDICARE (M) PART B Dec 16, 2014 PART B [id number] CARLOS ROMANO PATIENT MEDICO DENTAL INSURANCE DENTAL VISIONHEARING Dec 16, 2014 DENTAL VISIONHEAR [id number] [phone] CARLOS ROMANO PATIENT Selected Encounter This section includes the information on record at [place] for the Encounter. Date/Time Encounter Type Encounter Description Reason Provider Source Sep 03, 2019 10:10 AM Outpatient Encounter PRIMARY CARE/MEDICINE JENNIFER LINDSEY [facility] 15 IHE Encounter Template Text not used by [place] Assessments - Encounter Diagnoses No Data Provided for This Section Plan of Treatment: Future Appointments (+ 6 months) and Future Tests (+/- 45 day s) The Plan of Treatment section includes future care activities for the patient fr om all [place] treatment facilities. This section includes future appointments and fu ture orders which are active, pending or scheduled. Future Appointments This section includes appointments that were scheduled t o occur 6 months from the date of the Encounter, up to a maximum of 20 appointme nts. The data comes from all [facility] Appointment Date/Time Appointment Type Appointment Facili ty Name October 17, 2019 09:00 AM AMBULATORY - MEDICINE [facility] October 27, 2019 09:45 AM AMBULATORY - NONE [facility] Nov 20, 2019 05:00 PM AMBULATORY - MEDICINE [facility] Nov 24, 2019 11:20 AM AMBULATORY - NONE [facility] Dec 02, 2019 10:30 AM AMBULATORY - NONE [facility] Dec 03, 2019 12:30 PM AMBULATORY - NONE [facility] Dec 04, 2019 10:45 AM AMBULATORY - MEDICINE [facility] Dec 10, 2019 01:30 PM AMBULATORY - MEDICINE [facility] Jan 06, 2020 10:30 AM AMBULATORY - MEDICINE [facility] Active, Pending, and Scheduled Orders [...] the Encounter. The data comes from all [facility] Test Date/Time Test Type Test Details Facility Name Aug 08, 2019 01:27 PM Consult Order TO-NEUROLOGY OUTPT -[id number] [facility] [place] [facility] Sep 03, 2019 03:01 PM Consult Order COMMUNITY CARE-EK EYE OPTOMETRY-[id number] [facility] [place] [facility] Surgical Procedures: All associated [...] Aug 06, 2019 12:27 PM [facility] CBC & DIFF Specimen Type: BLOOD No [...] Aug 06, 2019 12:27 PM [facility] COMPREHENSIVE METABOLI C PANEL Specimen [...] Aug 06, 2019 12:27 PM [facility] C-REACTIVE PROTEIN Specimen Type: SERUM No comment entered. C-REACTIVE PROTEIN 20.37 mg/dL H 0.0-0.5 Aug 06, 2019 12:27 PM [facility] ERYTHROCYTE SEDIMENTAT ION RATE Specimen Type: BLOOD [...] Adverse Reactions (ADR s) on record with [place] for the patient. The data comes from a ll [place] treatment facilities. It does not list Allergies/ADRs that were removed or entered in error. Some allergies/ADRs may be reported in t Immunization section. Allergen Event Date Event Type Reaction(s) Severity Source PANTOPRAZOLE Oct 01, 2018 Propensity to adverse reactions to drug (disorder) Eruption [facility] 15 PENICILLIN Jul 17, 2012 Propensity to adverse reactions to drug (disorder) Peripheral edema [facility] 15 Medications: VA dispensed (-15 months) and Non-VA Documented (Obtained Outside [facility]) Section Date Range: 1) prescriptions processed by a VA pharmacy in the last 15 m [facility], and 2) all medications recorded in the [place] medical record as "non-VA medic ations". Pharmacy terms refer to [place] pharmacy's work on prescriptions. VA patient s are advised to take their medications as instructed by their health care team. The data comes from all [place] treatment facilities. Glossary of Pharmacy Terms:Active = A prescription that can be filled at the local [place] pharmacy.Active: On Hold = An active prescription that will not be filled until pharmacy resolves the issue.Active: Susp = An active prescription that is not scheduled to be filled yet.Clinic Order = A medication received during a visit to a [place] clinic or emergency department (currently not available).Discontinued = A prescription stopped by a [place] provider. It is no longer available to be filled. = A prescription which is too old to fill. This does not refer to the expiration date of the medication in the container. Non-VA = A medication that came from someplace other than a [place] pharmacy. This may be a prescription from either the [place] or other providers that was filled outside the [place]. Or, it may be an over the [...] FOR INHALATION ONCE 1 Nov 16, 2018 [id number] October 17, 2018 KOURTNEY [facility] ALBUTEROL SO4 90MCG/ACTUAT (CFC-F) INHL,ORAL,6.7GM Active INHALE 2 PUFFS BY ORAL INHALATION FOUR TIMES A DAY NEEDED - RINSE MOUTHPIECE FREQUENTLY TO PREVENT CLOGGING 1 Apr 24, 2020 [id number] October 18, 2019 KOURTNEY POTTER [facility] ALBUTEROL SO4 90MCG/ACTUAT (CFC-F) INHL,ORAL,6.7GM Discontin ued INHALE 2 PUFFS BY ORAL INHALATION FOUR TIMES A DAY NEEDED - RINSE MOUTHPIECE FREQUENTLY TO PREVENT CLOGGING 2 Apr 24, 2020 [id number] Apr 24, 2019 KOURTNEY POTTER [facility] BUDESONIDE 160MCG/FORMOTEROL FUM 4.5MCG/SPRAY INHL,ORAL,10.2 GM Active INHALE 2 PUFFS BY ORAL INHALATION TWO TIMES A DAY FOR BREATHING. SHAKE WELL. RINSE MOUTH AND SPIT AFTER EACH USE. 2 Apr 24, 2020 [id number] October 17, 2019 MCKENNE Y,KOURTNEY [facility] CALCIUM 500MG (CA CARBONATE-1.25GM) TAB Active: Susp TAKE ONE TABLET BY MOUTH TWO TIMES A DAY 180 Nov 20, 2020 [id number] Jan 09, 2020 KOURTNEY POTTER [facility] CALCIUM 500MG (CA CARBONATE-1.25GM) TAB Discontinued TAKE ONE TABLET BY MOUTH TWO TIMES A DAY 180 Jan 08, 2020 [id number] October 21, 2019 TARIQ,DANA [facility] [place] [facility] CALCIUM 500MG (CA CARBONATE-1.25GM) TAB Discontinued TAKE ONE TABLET BY MOUTH TWO TIMES A DAY 180 Dec 29, 2018 [id number] Oct 01, 2018 NASH K[facility]KARNI [facility] CARBIDOPA 25MG/LEVODOPA 100MG TAB Active TAKE 2 TABLETS BY MOUTH FOUR TIMES A DAY FOR PARKINSON'S DISEASE. DO NOT TAKE WITH FOOD. 240 Nov 24, 2020 [id number] Nov 27, 2019 [facility] [place] [facility] CARBIDOPA 25MG/LEVODOPA 100MG TAB Discontinued TAKE T WO TABLETS BY MOUTH FIVE TIMES DAILY FOR PARKINSON'S DISEASE. DO NOT TAKE WITH FOOD. 600 Jul 02, 2020 [id number] Nov 19, 2019 [facility] CARBIDOPA 25MG/LEVODOPA 100MG TAB Discontinued TAKE 2 TABLETS BY MOUTH FIVE TIMES DAILY FOR PARKINSON'S DISEASE. DO NOT TAKE WITH FOOD. 300 Jun 30, 2020 [id number] Jul 01, 2019 [facility] CARBIDOPA 25MG/LEVODOPA 100MG TAB Discontinued TAKE 2 TABLETS BY MOUTH FOUR TIMES A DAY FOR PARKINSON'S DISEASE. DO NOT TAKE WITH FOOD. 240 Jun 24, 2020 [id number] Jun 26, 2019 [facility] CARBIDOPA 25MG/LEVODOPA 100MG TAB Discontinued TAKE 2 TABLETS BY MOUTH FOUR TIMES A DAY FOR PARKINSON'S DISEASE. DO NOT TAKE WITH FOOD. 240 Dec 25, 2019 [id number] May 15, 2019 [facility] CARBIDOPA 25MG/LEVODOPA 100MG TAB Discontinued TAKE 2 TABLETS BY MOUTH FOUR TIMES A DAY FOR PARKINSON'S DISEASE. DO NOT TAKE WITH FOOD. 240 Jun 07, 2019 [id number] Nov 18, 2018 [facility] CHOLECALCIFEROL 25MCG (1,000UNIT) TAB Active: Susp TA KE TWO TABLETS BY MOUTH ONCE A DAY FOR VITAMIN D DEFICIENCY 200 Nov 20, 2020 [id number] Dec 172019 [facility] CHOLECALCIFEROL 25MCG (1,000UNIT) TAB Discontinued TA KE TWO TABLETS BY MOUTH ONCE A DAY FOR VITAMIN D DEFICIENCY 200 Dec 25, 2019 [id number] October [facility] [place] [facility] CHOLECALCIFEROL 25MCG (1,000UNIT) TAB Discontinued TA KE TWO TABLETS BY MOUTH ONCE A DAY FOR VITAMIN D DEFICIENCY 200 Oct 10, 2018 [id number] Aug 172018 [facility] CLOPIDOGREL BISULFATE 75MG TAB Active: Susp TAKE ONE TABLET BY MOUTH ONCE A DAY TO PREVENT BLOOD CLOTS 90 Apr 24, 2020 [id number] Dec 19, 2019 [facility] CLOPIDOGREL BISULFATE 75MG TAB Discontinued TAKE ONE TABLET BY MOUTH ONCE A DAY TO PREVENT BLOOD CLOTS 90 Jun 01, 2019 [id number] Mar 13, 2019 [facility] [place] [facility] DIPHENHYDRAMINE HCL 25MG CAP Non-VA TAKE 1 CAPSULE BY MOUTH EVERY 6 HOURS NEEDED Non-VA Documented by: KOURTNEY POTTER nted at: [facility] FLUDROCORTISONE ACETATE 0.1MG TAB Active TAKE ONE TABLET BY M OUTH ONCE A DAY 90 Nov 19, 2020 [id number] Nov 20, 2019 [facility] [place] [facility] FOLIC ACID 1MG TAB Non- VA TAKE ONE TABLET BY MOUTH ONCE A DAY N on-VA Documented by: KOURTNEY POTTER nted at: [facility] GABAPENTIN 300MG CAP Active TAKE 1 CAPSULE BY M OUTH 5 TIMES A DAY FOR PAIN AND TREMORS. 300 October 17, 2020 [id number] October 18, 2019 [facility] GABAPENTIN 300MG CAP Discontinued TAKE ONE CAPSULE BY MOUTH FOUR TIMES A DAY FOR PAIN AND TREMORS. 240 Jan 08, 2020 [id number] Oct 14, 2019 [facility] GABAPENTIN 300MG CAP Discontinued TAKE ONE CAPSULE BY MOUTH FOUR TIMES A DAY FOR PAIN AND TREMORS. 240 Mar 08, 2019 [id number] Jan 07, 2019 [facility] HYDROCODONE 10MG/ACETAMINOPHEN 325MG TAB Active TAKE ONE TABLET (10/325MG) BY MOUTH THREE TIMES A DAY NEEDED FOR PAIN CAUTION: DO NOT EXCEED 4000MG/DAY TOTAL OF ACETAMINOPHEN (APAP) FROM ALL MEDS 90 Dec 20, 2019 [id number] Nov 21, 2019 [facility] HYDROCODONE 10MG/ACETAMINOPHEN 325MG TAB Discontinued TAKE ONE TABLET (10/325MG) BY MOUTH THREE TIMES A DAY NEEDED FOR PAIN CAUTION: DO NOT EXCEED 4000MG/DAY TOTAL OF ACETAMINOPHEN (APAP) FROM ALL MEDS 90 Sep 17, 2 020 [id number] Sep 04, 2019 [facility] HYDROCODONE 10MG/ACETAMINOPHEN 325MG TAB Discontinued TAKE ONE TABLET BY MOUTH THREE TIMES A DAY NEEDED FOR PAIN CAUTION: DO NOT EXCEED 4000MG/DAY TOTAL OF ACETAMINOPHEN (APAP) FROM ALL MEDS 90 Jul 26, 2019 [id number] Jun 26, 2019 [facility] HYDROCODONE 10MG/ACETAMINOPHEN 325MG TAB Discontinued TAKE ONE TABLET BY MOUTH THREE TIMES A DAY NEEDED FOR PAIN CAUTION: DO NOT EXCEED 4000MG/DAY TOTAL OF ACETAMINOPHEN (APAP) FROM ALL MEDS 90 Jun 27, 2019 [id number] May 29, 2019 [facility] HYDROCODONE 10MG/ACETAMINOPHEN 325MG TAB Discontinued TAKE ONE TABLET BY MOUTH THREE TIMES A DAY NEEDED FOR PAIN CAUTION: DO NOT EXCEED 4000MG/DAY TOTAL OF ACETAMINOPHEN (APAP) FROM ALL MEDS 90 May 08, 2019 [id number] Apr 08, 2019 [facility] HYDROCODONE 10MG/ACETAMINOPHEN 325MG TAB Discontinued TAKE ONE TABLET BY MOUTH THREE TIMES A DAY NEEDED FOR PAIN CAUTION: DO NOT EXCEED 4000MG/DAY TOTAL OF ACETAMINOPHEN (APAP) FROM ALL MEDS 90 Mar 28, 2019 [id number] Feb 26, 2019 [facility] [place] [facility] HYDROCODONE 10MG/ACETAMINOPHEN 325MG TAB Discontinued TAKE ONE TABLET BY MOUTH THREE TIMES A DAY NEEDED FOR PAIN CAUTION: DO NOT EXCEED 4000MG/DAY TOTAL OF ACETAMINOPHEN (APAP) FROM ALL MEDS 90 Feb 06, 2019 [id number] Jan 07, 2019 [facility] [place] [facility] HYDROCODONE 10MG/ACETAMINOPHEN 325MG TAB Discontinued TAKE ONE TABLET BY MOUTH THREE TIMES A DAY NEEDED FOR PAIN CAUTION: DO NOT EXCEED 4000MG/DAY TOTAL OF ACETAMINOPHEN (APAP) FROM ALL MEDS 90 Dec 05, 2018 [id number] November 05, 2018 [facility] [place] HYDROCODONE 10MG/ACETAMINOPHEN 325MG TAB Discontinued TAKE ONE TABLET BY MOUTH THREE TIMES A DAY NEEDED FOR PAIN CAUTION: DO NOT EXCEED 4000MG/DAY TOTAL OF ACETAMINOPHEN (APAP) FROM ALL MEDS 90 October 25, 2018 [id number] Sep 25, 2018 [facility] HYDROCODONE 10MG/ACETAMINOPHEN 325MG TAB TAKE ONE TABLET (10/325MG) BY MOUTH THREE TIMES A DAY NEEDED FOR PAIN CAUTION: DO NOT EXCEED 4000MG/DAY TOTAL OF ACETAMINOPHEN (APAP) FROM ALL MEDS 90 November 16, 2019 [id number] October 18, 2019 [facility] METHOTREXATE NA 2.5MG TAB Active TAKE SEVEN TABLETS BY MOUTH EVERY WEEK 90 October 17, 2020 [id number] November 04, 2019 [facility] METHOTREXATE NA 2.5MG TAB Discontinued TAKE SEVEN TABLETS BY MOUTH EVERY WEEK 90 May 09, 2020 [id number] Aug 16, 2019 NASH KULKARNI [facility] METHOTREXATE NA 2.5MG TAB Discontinued TAKE SEVEN TABLETS BY MOUTH EVERY WEEK 90 Aug 04, 2019 [id number] Feb 22, 2019 YOU GOMEZ [facility] NORTRIPTYLINE HCL 10MG CAP Active TAKE 2 CAPSULES BY MO UTH AT BEDTIME NEEDED 120 Apr 02, 2020 [id number] Nov 20, 2019 [facility] NORTRIPTYLINE HCL 10MG CAP Discontinued TAKE 2 CAPSUL ES BY MOUTH AT BEDTIME NEEDED 120 Mar 20, 2019 [id number] Jan 23, 2019 [facility] OMEPRAZOLE 20MG CAP,EC Active TAKE 1 CAPSULE BY MOUTH EVERY MORNING TO LOWER STOMACH ACID. TAKE 30 MINUTES PRIOR TO FOOD. 90 October 17, 2020 [id number] October 21, 2019 [facility] OMEPRAZOLE 20MG CAP,EC Discontinued TAKE 1 CAPSULE BY MOUTH EVERY MORNING TO LOWER STOMACH ACID. TAKE 30 MINUTES PRIOR TO FOOD. 90 Oct 02, 2019 [id number] Aug 02, 2019 [facility] PREDNISONE 1MG TAB Discontinued TAKE THREE TABLETS B Y MOUTH ONCE A DAY FOR INFLAMMATION AND IMMUNE RESPONSE. TAKE WITH FOOD OR MILK. 270 Fe 2019 [id number] Apr 24, 2019 [facility] PREDNISONE 1MG TAB Discontinued TAKE FOUR TABLETS BY MOUTH ONCE A D AY 360 Apr 22, 2019 [id number] Jan 24, [address] [facility] [place] [facility] PREDNISONE 1MG TAB Discontinued TAKE FOUR TABLETS BY MOUTH ONCE A D AY 360 Dec 29, 2018 [id number] Oct 01, 2018 [facility]H KULKARNI [facility] PREDNISONE 1MG TAB TAKE THREE TABLETS B Y MOUTH ONCE A DAY FOR INFLAMMATION AND IMMUNE RESPONSE. TAKE WITH FOOD OR MILK. 270 Ap r 2019 [id number] Jul 13, 2019 [facility] PREDNISONE 5MG TAB Discontinued TAKE ONE TABLET BY MOUTH ONCE A DAY WITH FOOD 60 Aug 01, 2019 [id number] Sep 25, 2018 [facility] ROPINIROLE HCL 1MG TAB Active TAKE ONE TABLET BY MOUTH AT BED TIME 90 October 17, 2020 [id number] Nov 25, 2019 [facility] ROPINIROLE HCL 1MG TAB Discontinued TAKE ONE TABLET BY MOUTH AT BED TIME 90 Dec 05, 2019 [id number] Sep 03, 2019 KRYSTAL DEJESUS [facility] ROPINIROLE HCL 1MG TAB Discontinued TAKE ONE TABLET BY MOUTH AT BED TIME 90 Dec 13, 2018 [id number] Sep 12, 2018 [facility] TAMSULOSIN HCL 0.4MG CAP Active: Susp TAKE 1 CAPSULE BY MOUTH ONCE A DAY FOR PROSTATE. TAKE AT THE SAME TIME EACH DAY WITH FOOD. 90 Sep 30 [id number] Dec 20, 2019 [facility] TAMSULOSIN HCL 0.4MG CAP Discontinued TAKE 1 CAPSULE BY MOUTH ONCE A DAY FOR PROSTATE. TAKE AT THE SAME TIME EACH DAY WITH FOOD. 90 Sep 12 0 [id number] Jun 24, 2019 LIS BRUCE [facility] Problems (Conditions): All historical and current Section Date Range: From patient's date of to the date document was create d. This section includes a list of Problems (Conditions) know n to [place] for [place]. It includes both active and inacti ve problems (conditions). The data comes from all [place] treatment facilities. Problem Status Problem Code Date of Onset Date of Resolution Comm ent(s) Provider Source Abnormal radiologic density Active [id number] KOURTNEY HWANG [facility] Allergic rhinitis Active 23166307 LADY SALAZAR [facility] Anemia Active 627998502 KOURTNEY POTTER [facility] Chest pain (SNOMED CT 63670850) Active 786.50 KOURTNEY POTTER [facility] Chondrocalcinosis Active 796482150 JASONYOU [facility] Chronic obstructive lung disease Active 60739367 KOURTNEY POTTER [facility] Coronary artery disease Active 08884241 Angella LINDSEY [facility] Cough Active 28143477 LADY SALAZAR S [facility] [place] [facility] Cough (SNOMED CT 01023786) Active 786.2 KOURTNEY BARRON [facility] Dysarthria (SNOMED CT 6806028) Active 784.51 M KOURTNEY WONG [facility] Dyspnea (SNOMED CT 344459648) Active 786.09 KOURTNEY BARKSDALE [facility] Eruption due to drug Active 90460477 TARIQAbdiaziz TORY [facility] Gastroesophageal reflux disease Active 422795295 KOURTNEY POTTER [facility] Hallux valgus AND bunion Active 420602728 DEISY GERMAIN Royce [facility] Joint pain (SNOMED CT 01222567) Active 719.40 DEISY CONTRERAS Royce [facility] Joint swelling (SNOMED CT 234076423) Active 719.00 TARIQKOURTNEY SMITH [facility] Knee pain Active 73400396 JENNIFER LINDSEY [facility] Muscle weakness (SNOMED CT 22615501) Active 728.87 KOURTNEY POTTER [facility] Neuropathy Active 393182593 KOURTNEY POTTER RN [facility] [place] [facility] Osteoarthritis Active 715.36 DYAN SERVIN [facility] Parkinson's disease Active 59596582 ETHAN POTTER [facility] Peripheral Neuropathy Active 356.9 DASARAZORAIDA,P URUSHOTHAMA V [facility] Personal History of Exposure to Agent [place] Active V15.89 DEISY CONTRERAS [facility] Polyp of colon (SNOMED CT 03361943) Active 211.3 BRAYDEN POTTERA [facility] Restless legs Active 77175401 PATRICK WHITE [facility] [place] [facility] Rheumatoid arthritis Active 67456131 Abdiaziz POTTER [facility] Screening, Malignancy Active V76.89 LISSETH TOLEDO [facility] Sleep apnea Active 56382503 KOURTNEY POTTER RN [facility] [place] [facility] Synovial cyst of popliteal space (SNOMED CT 98779375) Active 727.51 TARIQKOURTNEY [facility] Tobacco dependence in remission Active 057225934 TARIQKOURTNEY [facility] Tobacco use Active 353516674 JENNIFER LINDSEY [facility] [place] [facility] Tremor Active 19384146 JENNIFER LINDSEY K S [facility] [place] [facility] Unresolved Active 26042997 JENNIFER LINDSEY N [facility] [place] [facility] Unresolved Active 00998743 JENNIFER LINDSEY [facility] [place] [facility] Radiology Reports: +/- 30 days of the encounter No Data Provided for This Section Pathology Reports: +/- 30 days of the encounter No Data Provided for This Section Encounter Notes: All associated encounter notes This section contains the clinical notes associated to the Encounter. Date/Time Encounter Note(s) Provider Source Sep 03, 2019 10:10 AM PRIMARY CARE SECURE MESSAGIN G: [facility] TITLE: -PRIMARY CARE SECURE MESSAGING STANDARD TITLE: PRIMARY CARE SECURE MESSAGING DATE OF NOTE: SEP 03, 2019@10:10:56 ENTRY DATE: SEP 03, 2019@10:10:57 AUTHOR: JENNIFER LINDSEY EXP COSIGNER: URGENCY: STATUS: COMPLETED ------Original Message ------ Sent: 09/03/2019 10:08 AM From: CARLOS ROMANO To: EKS, Abdiaziz Summers_Mari Luo_Primary Care Subject: Medication Inquiry please order Hydrocodone. i need another eye dr appointment i have been seeing a dr [facility], what do i need to do to set another one up? theses in the past [facility] ------Original Message ------ Sent: 09/03/2019 11:10 AM From: JENNIFER LINDSEY To: CARLOS ROMANO Subject: Medication Inquiry Forwarding to Kourtney Smith not sure on the eye exam anymore thru [facility], Things have changed so you may have to go to [facility], and with the lock down due to the COVID-19 it may be put out a ways. We will see /sofya/ JENNIFER LINDSEY LPN Signed: 09/03/2019 10:10 Receipt Acknowledged By: * AWAITING SIGNATURE * KOURTNEY POTTER KATHY J [facility]
--- OUTSIDE RECORDS SUMMARY | 2019-12-04 22:00 | XMS REPORT | Encounter Summary ---
Author Author [facility] CARLOS sweeney Organization Department of [facility] Address [address] [place] [id number] Phone Unavailable Care Team Providers Care Cart Attendant Name Role Phone TARIQKOURTNEY PCP Unavailable Insurance [...] PLAN G MEDICARE SUPPLEMENT Dec PLAN G [id number] [phone] ROSALINACARLOS PATIENT MEDICARE (WNR) MEDICARE (M) PART A Dec 16, 2014 PART A [id number] ROSALINACARLOS PATIENT MEDICARE (WNR) MEDICARE (M) PART B Dec 16, 2014 PART B [id number] CARLOS ROMANO PATIENT MEDICO DENTAL INSURANCE DENTAL VISIONHEARING Dec 16, 2014 DENTAL VISIONHEAR [id number] [phone] CARLOS ROMANO PATIENT Selected Encounter This section includes the information on record at [place] for the Encounter. Date/Time Encounter Type Encounter Description Reason Provider Source Jul 02, 2019 01:39 PM Outpatient Encounter PRIMARY CARE/MEDICINE JENNIFER LINSDEY [facility] IHE Encounter Template Text not used by [place] Assessments - Encounter Diagnoses No Data Provided for This Section Plan of Treatment: Future Appointments (+ 6 months) and Future Tests (+/- 45 day s) The Plan of Treatment section includes future care activities for the patient fr om all [facility] facilities. This section includes future appointments and fu ture orders which are active, pending or scheduled. Future Appointments This section includes appointments that were scheduled t o occur 6 months from the date of the Encounter, up to a maximum of 20 appointme nts. The data comes from all [facility]. Appointment Date/Time Appointment Type Appointment Facili ty Name Aug 06, 2019 01:00 PM [facility]BULATORY [place]IC[place] [facility] October 17, 2019 09:00 AM [facility]ORY - MEDIC[place] [facility] [place] October 27, 2019 09:45 AM AMBULATORY - NONE [facility] Nov 20, 2019 05:00 PM AMBULATORY - MEDICINE [facility] Nov 24, 2019 11:20 AM AMBULATORY - NONE [facility] [place] Dec 02, 2019 10:30 AM AMBULATORY - NONE [facility] Dec 03, 2019 12:30 PM AMBULATORY - NONE [facility] EL[facility] Dec 04, 2019 10:45 AM AM[facility]ULATORY - MEDICINE [facility] Dec 10, 2019 01:30 PM AMBULATORY - [facility]IC[place] [facility] Active, Pending, and Scheduled Orders This section [...] the Encounter. The data comes from all [facility]. Test Date/Time Test Type Test Details Facility Name Aug 08, 2019 01:27 PM Consult Order TO-NEUROLOGY OUTPT -[id number] Cons Library [facility] Surgical Procedures: All associated [...] Adverse Reactions (ADR s) on record with [place] for the patient. The data comes from a ll [place] treatment facilities. It does not list Allergies/ADRs that were removed or entered in error. Some allergies/ADRs may be reported in t he Immunization section. Allergen Event Date Event Type Reaction(s) Severity Source PANTOPRAZOLE Oct 01, 2018 Propensity to adverse reactions to drug (disorder) Eruption [facility] PENICILLIN Jul 17, 2012 Propensity to adverse reactions to drug (disorder) Peripheral edema [facility] Medications: VA dispensed (-15 months) and Non-VA Documented (Obtained Outside V A) Section Date Range: 1) prescriptions processed by a [facility] pharmacy in the last 15 m [facility], and 2) all medications recorded in the [place] medical record as "non-VA medic ations". Pharmacy terms refer to [place] pharmacy's work on prescriptions. VA patient s are advised to take their medications as instructed by their health care team. The data comes from all [place] treatment facilities. Glossary of Pharmacy Terms:Active = A prescription that can be filled at the local [place] pharmacy.Active: On Hold = An active prescription that will not be filled until pharmacy resolves the issue.Active: Susp = An active prescription that is not scheduled to be filled yet.Clinic Order = A medication received during a visit to a [place] clinic or emergency department (currently not available).Discontinued [...] FOR INHALATION ONCE 1 Nov 16, 2018 [id number] October 17, 2018 KOURTNEY POTTER [facility] ALBUTEROL SO4 90MCG/ACTUAT (CFC-F) INHL,ORAL,6.7GM Active INHALE 2 PUFFS BY ORAL INHALATION FOUR TIMES A DAY NEEDED - RINSE MOUTHPIECE FREQUENTLY TO PREVENT CLOGGING 1 Apr 24, 2020 [id number] October 18, 2019 KOURTNEY POTTER [facility] ALBUTEROL SO4 90MCG/ACTUAT (CFC-F) INHL,ORAL,6.7GM Discontin ued INHALE 2 PUFFS BY ORAL INHALATION FOUR TIMES A DAY NEEDED - RINSE MOUTHPIECE FREQUENTLY TO PREVENT CLOGGING 2 Apr 24, 2020 [id number] Apr 24, 2019 KOURTNEY POTTER [facility] BUDESONIDE 160MCG/FORMOTEROL FUM 4.5MCG/SPRAY INHL,ORAL,10.2 GM Active INHALE 2 PUFFS BY ORAL INHALATION TWO TIMES A DAY FOR BREATHING. SHAKE WELL. RINSE MOUTH AND SPIT AFTER EACH USE. 2 Apr 24, 2020 [id number] October 17, 2019 KOURTNEY JOSHI [facility] CALCIUM 500MG (CA CARBONATE-1.25GM) TAB Active: Susp TAKE ONE TABLET BY MOUTH TWO TIMES A DAY 180 Nov 20, 2020 [id number] Jan 09, 2020 KOURTNEY POTTER [facility] CALCIUM 500MG (CA CARBONATE-1.25GM) TAB Discontinued TAKE ONE TABLET BY MOUTH TWO TIMES A DAY 180 Jan 08, 2020 [id number] October 21, 2019 KOURTNEY POTTER [facility] [place] [facility] CALCIUM 500MG (CA CARBONATE-1.25GM) TAB Discontinued TAKE ONE TABLET BY MOUTH TWO TIMES A DAY 180 Dec 29, 2018 [id number] Oct 01, 2018 NASH KULKARNI [facility] CARBIDOPA 25MG/LEVODOPA 100MG TAB Active TAKE 2 TABLETS BY MOUTH FOUR TIMES A DAY FOR PARKINSON'S DISEASE. DO NOT TAKE WITH FOOD. 240 Nov 24, 2020 [id number] Nov 27, 2019 ALLEGRA HOWE [facility] [place] [facility] CARBIDOPA 25MG/LEVODOPA 100MG TAB Discontinued TAKE T WO TABLETS BY MOUTH FIVE TIMES DAILY FOR PARKINSON'S DISEASE. DO NOT TAKE WITH FOOD. 600 Jul 02, 2020 [id number] Nov 19, 2019 [facility] CARBIDOPA 25MG/LEVODOPA 100MG TAB Discontinued TAKE 2 TABLETS BY MOUTH FIVE TIMES DAILY FOR PARKINSON'S DISEASE. DO NOT TAKE WITH FOOD. 300 Jun 30, 2020 [id number] Jul 01, 2019 [facility] [place] [facility] CARBIDOPA 25MG/LEVODOPA 100MG TAB Discontinued TAKE 2 TABLETS BY MOUTH FOUR TIMES A DAY FOR PARKINSON'S DISEASE. DO NOT TAKE WITH FOOD. 240 Jun 24, 2020 [id number] Jun 26, 2019 [facility] CARBIDOPA 25MG/LEVODOPA 100MG TAB Discontinued TAKE 2 TABLETS BY MOUTH FOUR TIMES A DAY FOR PARKINSON'S DISEASE. DO NOT TAKE WITH FOOD. 240 Dec 25, 2019 [id number] May 15, 2019 [facility] CARBIDOPA 25MG/LEVODOPA 100MG TAB Discontinued TAKE 2 TABLETS BY MOUTH FOUR TIMES A DAY FOR PARKINSON'S DISEASE. DO NOT TAKE WITH FOOD. 240 Jun 07, 2019 [id number] Nov 18, 2018 [facility] [place] [facility] CHOLECALCIFEROL 25MCG (1,000UNIT) TAB Active: Susp TA KE TWO TABLETS BY MOUTH ONCE A DAY FOR VITAMIN D DEFICIENCY 200 Nov 20, 2020 [id number] Dec 172019 [facility] CHOLECALCIFEROL 25MCG (1,000UNIT) TAB Discontinued TA KE TWO TABLETS BY MOUTH ONCE A DAY FOR VITAMIN D DEFICIENCY 200 Dec 25, 2019 [id number] October [facility] [place] [facility] CHOLECALCIFEROL 25MCG (1,000UNIT) TAB Discontinued TA KE TWO TABLETS BY MOUTH ONCE A DAY FOR VITAMIN D DEFICIENCY 200 Oct 10, 2018 [id number] Aug 172018 [employer] CLOPIDOGREL BISULFATE 75MG TAB Active: Susp TAKE ONE TABLET BY MOUTH ONCE A DAY TO PREVENT BLOOD CLOTS 90 Apr 24, 2020 [id number] Dec 19, 2019 [facility] CLOPIDOGREL BISULFATE 75MG TAB Discontinued TAKE ONE TABLET BY MOUTH ONCE A DAY TO PREVENT BLOOD CLOTS 90 Jun 01, 2019 [id number] Mar 13, 2019 [facility] [place] [facility] DIPHENHYDRAMINE HCL 25MG CAP Non-VA TAKE 1 CAPSULE BY MOUTH EVERY 6 HOURS NEEDED Non-VA Documented by: KOURTNEY POTTER nted at: [facility] FLUDROCORTISONE ACETATE 0.1MG TAB Active TAKE ONE TABLET BY M OUTH ONCE A DAY 90 Nov 19, 2020 [id number] Nov 20, 2019 [facility] [place] [facility] FOLIC ACID 1MG TAB Non- VA TAKE ONE TABLET BY MOUTH ONCE A DAY N on-VA Documented by: KOURTNEY POTTER nted at: [facility] GABAPENTIN 300MG CAP Active TAKE 1 CAPSULE BY M OUTH 5 TIMES A DAY FOR PAIN AND TREMORS. 300 October 17, 2020 [id number] [facility], [facility] G[facility] 300MG CAP Discontinued TAKE ONE CAPSULE BY MOUTH FOUR TIMES A DAY FOR PAIN AND TREMORS. 240 Jan 08, 2020 [id number] Oct 14, 2019 [facility] GABAPENTIN 300MG CAP Discontinued TAKE ONE CAPSULE BY MOUTH FOUR TIMES A DAY FOR PAIN AND TREMORS. 240 Mar 08, 2019 [id number] Jan 07, 2019 [facility] [place] [facility] HYDROCODONE 10MG/ACETAMINOPHEN 325MG TAB Active TAKE ONE TABLET (10/325MG) BY MOUTH THREE TIMES A DAY NEEDED FOR PAIN CAUTION: DO NOT EXCEED 4000MG/DAY TOTAL OF ACETAMINOPHEN (APAP) FROM ALL MEDS 90 Dec 20, 2019 [id number] Nov 21, 2019 [facility] HYDROCODONE 10MG/ACETAMINOPHEN 325MG TAB Discontinued TAKE ONE TABLET (10/325MG) BY MOUTH THREE TIMES A DAY NEEDED FOR PAIN CAUTION: DO NOT EXCEED 4000MG/DAY TOTAL OF ACETAMINOPHEN (APAP) FROM ALL MEDS 90 Sep 17, 2 020 [id number] Sep 04, 2019 [facility] [place] [facility] HYDROCODONE 10MG/ACETAMINOPHEN 325MG TAB Discontinued TAKE ONE TABLET BY MOUTH THREE TIMES A DAY NEEDED FOR PAIN CAUTION: DO NOT EXCEED 4000MG/DAY TOTAL OF ACETAMINOPHEN (APAP) FROM ALL MEDS 90 Jul 26, 2019 [id number] Jun 26, 2019 [facility] [place] [facility] HYDROCODONE 10MG/ACETAMINOPHEN 325MG TAB Discontinued TAKE ONE TABLET BY MOUTH THREE TIMES A DAY NEEDED FOR PAIN CAUTION: DO NOT EXCEED 4000MG/DAY TOTAL OF ACETAMINOPHEN (APAP) FROM ALL MEDS 90 Jun 27, 2019 [id number] May 29, 2019 [facility] [place] [facility] HYDROCODONE 10MG/ACETAMINOPHEN 325MG TAB Discontinued TAKE ONE TABLET BY MOUTH THREE TIMES A DAY NEEDED FOR PAIN CAUTION: DO NOT EXCEED 4000MG/DAY TOTAL OF ACETAMINOPHEN (APAP) FROM ALL MEDS 90 May 08, 2019 [id number] Apr 08, 2019 [facility] [place] [facility] HYDROCODONE 10MG/ACETAMINOPHEN 325MG TAB Discontinued TAKE ONE TABLET BY MOUTH THREE TIMES A DAY NEEDED FOR PAIN CAUTION: DO NOT EXCEED 4000MG/DAY TOTAL OF ACETAMINOPHEN (APAP) FROM ALL MEDS 90 Mar 28, 2019 [id number] Feb 26, 2019 [facility] [place] [facility] HYDROCODONE 10MG/ACETAMINOPHEN 325MG TAB Discontinued TAKE ONE TABLET BY MOUTH THREE TIMES A DAY NEEDED FOR PAIN CAUTION: DO NOT EXCEED 4000MG/DAY TOTAL OF ACETAMINOPHEN (APAP) FROM ALL MEDS 90 Feb 06, 2019 [id number] Jan 07, 2019 [facility] [place] [facility] HYDROCODONE 10MG/ACETAMINOPHEN 325MG TAB Discontinued TAKE ONE TABLET BY MOUTH THREE TIMES A DAY NEEDED FOR PAIN CAUTION: DO NOT EXCEED 4000MG/DAY TOTAL OF ACETAMINOPHEN (APAP) FROM ALL MEDS 90 Dec 05, 2018 [id number] November 05, 2018 [facility] [place] [facility] HYDROCODONE 10MG/ACETAMINOPHEN 325MG TAB Discontinued TAKE ONE TABLET BY MOUTH THREE TIMES A DAY NEEDED FOR PAIN CAUTION: DO NOT EXCEED 4000MG/DAY TOTAL OF ACETAMINOPHEN (APAP) FROM ALL MEDS 90 October 25, 2018 [id number] Sep 25, 2018 [facility] [place] [facility] HYDROCODONE 10MG/ACETAMINOPHEN 325MG TAB TAKE ONE TABLET (10/325MG) BY MOUTH THREE TIMES A DAY NEEDED FOR PAIN CAUTION: DO NOT EXCEED 4000MG/DAY TOTAL OF ACETAMINOPHEN (APAP) FROM ALL MEDS 90 November 16, 2019 [id number] October 18, 2019 TARIQKOURTNEY [facility] METHOTREXATE NA 2.5MG TAB Active TAKE SEVEN TABLETS BY MOUTH EVERY WEEK 90 October 17, 2020 [id number] November 04, 2019 [facility] METHOTREXATE NA 2.5MG TAB Discontinued TAKE SEVEN TABLETS BY MOUTH EVERY WEEK 90 May 09, 2020 [id number] Aug 16, 2019 NASH KULKARNI [facility] METHOTREXATE NA 2.5MG TAB Discontinued TAKE SEVEN TABLETS BY MOUTH EVERY WEEK 90 Aug 04, 2019 [id number] Feb 22, 2019 YOU GOMEZ [facility] [place] [facility] NORTRIPTYLINE HCL 10MG CAP Active TAKE 2 CAPSULES BY MO UTH AT BEDTIME NEEDED 120 Apr 02, 2020 [id number] Nov 20, 2019 [facility] [place] [facility] NORTRIPTYLINE HCL 10MG CAP Discontinued TAKE 2 CAPSUL ES BY MOUTH AT BEDTIME NEEDED 120 Mar 20, 2019 [id number] Jan 23, 2019 [facility] OMEPRAZOLE 20MG CAP,EC Active TAKE 1 CAPSULE BY MOUTH EVERY MORNING TO LOWER STOMACH ACID. TAKE 30 MINUTES PRIOR TO FOOD. 90 October 17, 2020 [id number] October 21, 2019 [facility] OMEPRAZOLE 20MG CAP,EC Discontinued TAKE 1 CAPSULE BY MOUTH EVERY MORNING TO LOWER STOMACH ACID. TAKE 30 MINUTES PRIOR TO FOOD. 90 Oct 02, 2019 [id number] Aug 02, 2019 [facility] [place] PREDNISONE 1MG TAB Discontinued TAKE THREE TABLETS B Y MOUTH ONCE A DAY FOR INFLAMMATION AND IMMUNE RESPONSE. TAKE WITH FOOD OR MILK. 270 Fe b 2019 [id number] Apr 24, 2019 [facility] PREDNISONE 1MG TAB Discontinued TAKE FOUR TABLETS BY MOUTH ONCE A D AY 360 Apr 22, 2019 [id number] Jan 24, 2019 [facility] [place] [facility] PREDNISONE 1MG TAB Discontinued TAKE FOUR TABLETS BY MOUTH ONCE A D AY 360 Dec 29, 2018 [id number] Oct 01, 2018 NASH KULKARNI [facility] PREDNISONE 1MG TAB TAKE THREE TABLETS B Y MOUTH ONCE A DAY FOR INFLAMMATION AND IMMUNE RESPONSE. TAKE WITH FOOD OR MILK. 270 Ap r 2019 [id number] Jul 13, 2019 [facility] PREDNISONE 5MG TAB Discontinued TAKE ONE TABLET BY MOUTH ONCE A DAY WITH FOOD 60 Aug 01, 2019 [id number] Sep 25, 2018 KOURTNEY POTTER [facility] ROPINIROLE HCL 1MG TAB Active TAKE ONE TABLET BY MOUTH AT BED TIME 90 October 17, 2020 [id number] Nov 25, 2019 KOURTNEY POTTER [facility] ROPINIROLE HCL 1MG TAB Discontinued TAKE ONE TABLET BY MOUTH AT BED TIME 90 Dec 05, 2019 [id number] Sep 03, 2019 KRYSTAL DEJESUS [facility] [place] [facility] ROPINIROLE HCL 1MG TAB Discontinued TAKE ONE TABLET BY MOUTH AT BED TIME 90 Dec 13, 2018 [id number] Sep 12, 2018 [facility] [place] [facility] TAMSULOSIN HCL 0.4MG CAP Active: Susp TAKE 1 CAPSULE BY MOUTH ONCE A DAY FOR PROSTATE. TAKE AT THE SAME TIME EACH DAY WITH FOOD. 90 Sep 30 1 [id number] Dec 20, 2019 TARIQ,DANA [facility] [place] [facility] TAMSULOSIN HCL 0.4MG CAP Discontinued TAKE 1 CAPSULE BY MOUTH ONCE A DAY FOR PROSTATE. TAKE AT THE SAME TIME EACH DAY WITH FOOD. 90 Sep 12 0 [id number] Jun 24, 2019 KYLE BRUCETHIA [facility] Problems (Conditions): All historical and current Section Date Range: From patient's date of to the date document was create d. This section includes a list of Problems (Conditions) know n to [facility] for the patient. It includes both active and inacti ve problems (conditions). The data comes from all [place] treatment facilities. Problem Status Problem Code Date of Onset Date of Resolution Comm ent(s) Provider Source Abnormal radiologic density Active [id number] [facility] [place] [facility] Allergic rhinitis Active 96762254 LADY SALAZAR [facility] [place] [facility] Anemia Active 638892647 [facility] [place] [facility] Chest pain (SNOMED CT 41090846) Active 786.50 [facility] [place] [facility] Chondrocalcinosis Active 522779774 YOU GOMEZ [facility] Chronic obstructive lung disease Active 50686074 [facility] [facility] Coronary artery disease Active 78199470 Angella LINDSEY NICHOLAS Pope [facility] Cough Active 92295539 LADY SALAZAR [facility] [place] [facility] Cough (SNOMED CT 30864373) Active 786.2 KOURTNEY BARRON [facility] [place] [facility] Dysarthria (SNOMED CT 4536643) Active 784.51 M KOURTNEY WONG [facility] [place] [facility] Dyspnea (SNOMED CT 421316791) Active 786.09 KOURTNEY BARKSDALE [facility] [facility] Eruption due to drug Active 41143212 Abdiaziz POTTER TORY [facility] Gastroesophageal reflux disease Active 353137528 KOURTNEY POTTER [facility] [facility] Hallux valgus AND bunion Active 730264458 ALEXANDRO DEISY Dangelo [facility] Joint pain (SNOMED CT 01276093) Active 719.40 DEISY CONTRERAS Royce [facility] Joint swelling (SNOMED CT 088286608) Active 719.00 KOURTNEY POTTER [facility] [place] [facility] Knee pain Active 44333465 ROSALIAJENNIFER [facility] [place] [facility] Muscle weakness (SNOMED CT 71214423) Active 728.87 KOURTNEY POTTER [facility] Neuropathy Active 594269841 TARIQKOURTNEY DAKSHAChad [facility] [place] [facility] Osteoarthritis Active 715.36 DYAN SERVIN [facility] Parkinson's disease Active 18251529 ETHAN POTTER [facility] Peripheral Neuropathy Active 356.9 DASARAJU,P [facility] [place] [facility] Personal History of Exposure to Agent Wagoner Active V15.89 DEISY CONTRERAS Royce [facility] Polyp of colon (SNOMED CT 80686934) Active 211.3 TARIQKOURTNEY SMITH [facility] Restless legs Active 96173408 PATRICK WHITE [facility] [place] [facility] Rheumatoid arthritis Active 41359833 Abdiaziz POTTER [facility] Screening, Malignancy Active V76.89 LISSETH TOLEDO [facility] Sleep apnea Active 40981662 KOURTNEY POTTERChad KAUFMAN [facility] [place] [facility] Synovial cyst of popliteal space (SNOMED CT 86412202) Active 727.51 KOURTNEY POTTER [facility] Tobacco dependence in remission Active 812918724 KOURTNEY POTTER [facility] Tobacco use Active 293289460 JENNIFER LINDSEY [facility] [place] [facility] Tremor Active 54994200 JENNIFER LINDSEY K S [facility] [place] [facility] Unresolved Active 90822541 LUIS ALFREDO LINDSEYORESTES CROOKSER N [facility] [place] [facility] Unresolved Active 06642053 JENNIFER LINDSEY Toshia CHEUNG N [facility] [place] [facility] Radiology Reports: +/- 30 days of the encounter No Data Provided for This Section Pathology Reports: +/- 30 days of the encounter No Data Provided for This Section Encounter Notes: All associated encounter notes This section contains the clinical notes associated to the Encounter. Date/Time Encounter Note(s) Provider Source Jul 02, 2019 01:39 PM PRIMARY CARE SECURE MESSAGIN G: [facility] TITLE: -PRIMARY CARE SECURE MESSAGING STANDARD TITLE: PRIMARY CARE SECURE MESSAGING DATE OF NOTE: JUL 02, 2019@13:39:49 ENTRY DATE: JUL 02, 2019@12:39:49 AUTHOR: JENNIFER LINDSEY EXP COSIGNER: URGENCY: STATUS: COMPLETED EK-PRIMARY CARE SECURE MESSAGING Has ADDENDA ------Original Message ------ Sent: 07/02/2019 10:59 AM From: CARLOS ROMANO To: EKKate, Samantha Summers [facility] Subject: Urgent !!!!!!! i have just ordered some meds, please please have [place] singh shippment as I have been out since Sunday. When I saw Dr Alarcon on Sunday he said he cannot increase my doasge any more than what he has but there is another med RYTARY, that the [place] has not approved? what do I do? ------Original Message ------ Sent: 07/02/2019 01:39 PM From: JENNIFER LINDSEY To: CARLOS ROMANO Subject: Urgent !!!!!!! Forwarding to Kourtney /sofya/ JENNIFER LINDSEY LPN Signed: 07/02/2019 12:39 Receipt Acknowledged By: 07/02/2019 12:42 /sofya/ KOURTNEY BAIG 07/02/2019 ADDENDUM STATUS: COMPLETED Need to clarify what meds vet is needing singh on. Need to verify status of these meds. [facility] Neuro provider faxes RX to [facility]. /sofya/ KOURTNEY BAIG Signed: 07/02/2019 12:43 Receipt Acknowledged By: 07/02/2019 16:13 /sofya/ JULIO RIVERA RN 07/02/2019 12:55 /sofya/ JENNIFER KOROMA LPN [facility]
--- OUTSIDE RECORDS SUMMARY | 2019-12-04 22:00 | XMS REPORT | Encounter Summary ---
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 Date/Time Encounter Type Encounter Description Reason Provider Source Jul 02, 2019 04:11 PM Outpatient Encounter PRIMARY CARE/MEDICINE JENNIFER LINDSEY [facility] IHE Encounter Template Text not used by [place] Assessments - Encounter Diagnoses No Data Provided for This Section Plan of Treatment: Future Appointments (+ 6 months) and Future Tests (+/- 45 day s) The Plan of Treatment section includes future care activities for the patient fr om all [facility] facilities. This section includes future appointments and fu ture orders which are active, pending or scheduled. Future Appointments This section includes appointments that were scheduled t o occur 6 months from the date of the Encounter, up to a maximum of 20 appointme nts. The data comes from all [facility]. Appointment Date/Time Appointment Type Appointment Facili ty Name Aug 06, 2019 01:00 PM AMBULATORY - MEDICINE BLUE MOREJON V [facility] October 17, 2019 09:00 AM AMBULATORY - MEDIC[facility] [place] October 27, 2019 09:45 AM AMBULATORY - NONE [facility] [place] [facility] Nov 20, 2019 05:00 PM AMBULATORY - MEDICINE [facility] [place] Nov 24, 2019 11:20 AM AMBULATORY - NONE [facility] [place] Dec 02, 2019 10:30 AM AMBULATORY - NONE [facility] Dec 03, 2019 12:30 PM AMBULATORY - NONE [facility] ELIZALDE C Dec 04, 2019 10:45 AM AMBULATORY - MEDICINE [facility] Dec 10, 2019 01:30 PM AMBULATORY - MEDICINE BLUE MOREJON V [facility] Active, Pending, and Scheduled Orders This section [...] Encounter. The data comes from all [facility]. Test Date/Time Test Type Test Details Facility Name Aug 08, 2019 01:27 PM Consult Order TO-NEUROLOGY OUTPT -[id number] Cons Building Services Coordinator's Choice [facility] [place] [facility] Surgical Procedures: All associated to [...] Adverse Reactions (ADR s) on record with [place] for the patient. The data comes from a ll [place] treatment facilities. It does not list Allergies/ADRs that were removed or entered in error. Some allergies/ADRs may be reported in t he Immunization section. Allergen Event Date Event Type Reaction(s) Severity Source PANTOPRAZOLE Oct 01, 2018 Propensity to adverse reactions to drug (disorder) Eruption [facility] PENICILLIN Jul 17, 2012 Propensity to adverse reactions to drug (disorder) Peripheral edema [facility] Medications: VA dispensed (-15 months) and Non-VA Documented (Obtained Outside V A) Section Date Range: 1) prescriptions processed by a VA pharmacy in the last 15 m [place], and 2) all medications recorded in the [place] medical record as "non-VA medic ations". Pharmacy terms refer to [place] pharmacy's work on prescriptions. VA patient s are advised to take their medications as instructed by their health care team. The data comes from all [place] treatment facilities. Glossary of Pharmacy Terms:Active = A prescription that can be filled at the local [place] pharmacy.Active: On Hold = An active prescription that will not be filled until pharmacy resolves the issue.Active: Susp = An active prescription that is not scheduled to be filled yet.Clinic Order = A medication received during a visit to a [place] clinic or emergency department (currently not available).Discontinued [...] FOR INHALATION ONCE 1 Nov 16, 2018 [id number] October 17, 2018 KOURTNEY POTTER [facility] ALBUTEROL SO4 90MCG/ACTUAT (CFC-F) INHL,ORAL,6.7GM Active INHALE 2 PUFFS BY ORAL INHALATION FOUR TIMES A DAY NEEDED - RINSE MOUTHPIECE FREQUENTLY TO PREVENT CLOGGING 1 Apr 24, 2020 [id number] October 18, 2019 KOURTNEY POTTER [facility] ALBUTEROL SO4 90MCG/ACTUAT (CFC-F) INHL,ORAL,6.7GM Discontin ued INHALE 2 PUFFS BY ORAL INHALATION FOUR TIMES A DAY NEEDED - RINSE MOUTHPIECE FREQUENTLY TO PREVENT CLOGGING 2 Apr 24, 2020 [id number] Apr 24, 2019 KOURTNEY POTTER [facility] BUDESONIDE 160MCG/FORMOTEROL FUM 4.5MCG/SPRAY INHL,ORAL,10.2 GM Active INHALE 2 PUFFS BY ORAL INHALATION TWO TIMES A DAY FOR BREATHING. SHAKE WELL. RINSE MOUTH AND SPIT AFTER EACH USE. 2 Apr 24, 2020 [id number] October 17, 2019 KOURTNEY JOSHI [facility] CALCIUM 500MG (CA CARBONATE-1.25GM) TAB Active: Susp TAKE ONE TABLET BY MOUTH TWO TIMES A DAY 180 Nov 20, 2020 [id number] Jan 09, 2020 KOURTNEY POTTER [facility] CALCIUM 500MG (CA CARBONATE-1.25GM) TAB Discontinued TAKE ONE TABLET BY MOUTH TWO TIMES A DAY 180 Jan 08, 2020 [id number] October 21, 2019 KOURTNEY POTTER [facility] [place] [facility] CALCIUM 500MG (CA CARBONATE-1.25GM) TAB Discontinued TAKE ONE TABLET BY MOUTH TWO TIMES A DAY 180 Dec 29, 2018 [id number] Oct 01, 2018 NASH KULKARNI [facility] CARBIDOPA 25MG/LEVODOPA 100MG TAB Active TAKE 2 TABLETS BY MOUTH FOUR TIMES A DAY FOR PARKINSON'S DISEASE. DO NOT TAKE WITH FOOD. 240 Nov 24, 2020 [id number] Nov 27, 2019 ALLEGRA HOWE [facility] [place] [facility] CARBIDOPA 25MG/LEVODOPA 100MG TAB Discontinued TAKE T WO TABLETS BY MOUTH FIVE TIMES DAILY FOR PARKINSON'S DISEASE. DO NOT TAKE WITH FOOD. 600 Jul 02, 2020 [id number] Nov 19, 2019 [facility] [place] [facility] CARBIDOPA 25MG/LEVODOPA 100MG TAB Discontinued TAKE 2 TABLETS BY MOUTH FIVE TIMES DAILY FOR PARKINSON'S DISEASE. DO NOT TAKE WITH FOOD. 300 Jun 30, 2020 [id number] Jul 01, 2019 [facility] CARBIDOPA 25MG/LEVODOPA 100MG TAB Discontinued TAKE 2 TABLETS BY MOUTH FOUR TIMES A DAY FOR PARKINSON'S DISEASE. DO NOT TAKE WITH FOOD. 240 Jun 24, 2020 [id number] Jun 26, 2019 [facility] [place] [facility] CARBIDOPA 25MG/LEVODOPA 100MG TAB Discontinued TAKE 2 TABLETS BY MOUTH FOUR TIMES A DAY FOR PARKINSON'S DISEASE. DO NOT TAKE WITH FOOD. 240 Dec 25, 2019 [id number] May 15, 2019 [facility] A DIV CARBIDOPA 25MG/LEVODOPA 100MG TAB Discontinued TAKE 2 TABLETS BY MOUTH FOUR TIMES A DAY FOR PARKINSON'S DISEASE. DO NOT TAKE WITH FOOD. 240 Jun 07, 2019 [id number] Nov 18, 2018 [facility] [place] [facility] CHOLECALCIFEROL 25MCG (1,000UNIT) TAB Active: Susp TA KE TWO TABLETS BY MOUTH ONCE A DAY FOR VITAMIN D DEFICIENCY 200 Nov 20, 2020 [id number] Dec 172019 [facility] CHOLECALCIFEROL 25MCG (1,000UNIT) TAB Discontinued TA KE TWO TABLETS BY MOUTH ONCE A DAY FOR VITAMIN D DEFICIENCY 200 Dec 25, 2019 [id number] October [facility] [place] CHOLECALCIFEROL 25MCG (1,000UNIT) TAB Discontinued TA KE TWO TABLETS BY MOUTH ONCE A DAY FOR VITAMIN D DEFICIENCY 200 Oct 10, 2018 [id number] Aug 172018 [facility] CLOPIDOGREL BISULFATE 75MG TAB Active: Susp TAKE ONE TABLET BY MOUTH ONCE A DAY TO PREVENT BLOOD CLOTS 90 Apr 24, 2020 [id number] Dec 19, 2019 [facility] CLOPIDOGREL BISULFATE 75MG TAB Discontinued TAKE ONE TABLET BY MOUTH ONCE A DAY TO PREVENT BLOOD CLOTS 90 Jun 01, 2019 [id number] Mar 13, 2019 [facility] [place] [facility] DIPHENHYDRAMINE HCL 25MG CAP Non-VA TAKE 1 CAPSULE BY MOUTH EVERY 6 HOURS NEEDED Non-VA Documented by: KOURTNEY POTTER nted at: [facility] FLUDROCORTISONE ACETATE 0.1MG TAB Active TAKE ONE TABLET BY M OUTH ONCE A DAY 90 Nov 19, 2020 [id number] Nov 20, [facility] [place] [facility] FOLIC ACID 1MG TAB Non- VA TAKE ONE TABLET BY MOUTH ONCE A DAY N on-VA Documented by: KOURTNEY POTTER nted at: [facility] GABAPENTIN 300MG CAP Active TAKE 1 CAPSULE BY M OUTH 5 TIMES A DAY FOR PAIN AND TREMORS. 300 October 17, 2020 [id number] [facility], [facility] GAB[facility] 300MG CAP Discontinued TAKE ONE CAPSULE BY MOUTH FOUR TIMES A DAY FOR PAIN AND TREMORS. 240 Jan 08, 2020 [id number] Oct 14, [address] [facility] GABAPENTIN 300MG CAP Discontinued TAKE ONE CAPSULE BY MOUTH FOUR TIMES A DAY FOR PAIN AND TREMORS. 240 Mar 08, 2019 [id number] Jan 07, 2019 [facility] [place] HYDROCODONE 10MG/ACETAMINOPHEN 325MG TAB Active TAKE ONE TABLET (10/325MG) BY MOUTH THREE TIMES A DAY NEEDED FOR PAIN CAUTION: DO NOT EXCEED 4000MG/DAY TOTAL OF ACETAMINOPHEN (APAP) FROM ALL MEDS 90 Dec 20, 2019 [id number] Nov 21[facility] 2019 [facility] HYDROCOD[facility] 10MG/ACETAMINOPHEN 325MG TAB Discontinued TAKE ONE TABLET (10/325MG) BY MOUTH THREE TIMES A DAY NEEDED FOR PAIN CAUTION: DO NOT EXCEED 4000MG/DAY TOTAL OF ACETAMINOPHEN (APAP) FROM ALL MEDS 90 Sep 17, 2 [id number] Sep 04, 2019 [facility] [place] HYDROCODONE 10MG/ACETAMINOPHEN 325MG TAB Discontinued TAKE ONE TABLET BY MOUTH THREE TIMES A DAY NEEDED FOR PAIN CAUTION: DO NOT EXCEED 4000MG/DAY TOTAL OF ACETAMINOPHEN (APAP) FROM ALL MEDS 90 Jul 26, 2019 [id number] Jun 26, 2019 [facility] [place] HYDROCODONE 10MG/ACETAMINOPHEN 325MG TAB Discontinued TAKE ONE TABLET BY MOUTH THREE TIMES A DAY NEEDED FOR PAIN CAUTION: DO NOT EXCEED 4000MG/DAY TOTAL OF ACETAMINOPHEN (APAP) FROM ALL MEDS 90 Jun 27, 2019 [id number] May 29, 2019 [facility] [place] [facility] HYDROCODONE 10MG/ACETAMINOPHEN 325MG TAB Discontinued TAKE ONE TABLET BY MOUTH THREE TIMES A DAY NEEDED FOR PAIN CAUTION: DO NOT EXCEED 4000MG/DAY TOTAL OF ACETAMINOPHEN (APAP) FROM ALL MEDS 90 May 08, 2019 [id number] Apr 08, 2019 [facility] [place] [facility] HYDROCODONE 10MG/ACETAMINOPHEN 325MG TAB Discontinued TAKE ONE TABLET BY MOUTH THREE TIMES A DAY NEEDED FOR PAIN CAUTION: DO NOT EXCEED 4000MG/DAY TOTAL OF ACETAMINOPHEN (APAP) FROM ALL MEDS 90 Mar 28, 2019 [id number] Feb 26, 2019 [facility]DEN [facility] [place] [facility] HYDROCODONE 10MG/ACETAMINOPHEN 325MG TAB Discontinued TAKE ONE TABLET BY MOUTH THREE TIMES A DAY NEEDED FOR PAIN CAUTION: DO NOT EXCEED 4000MG/DAY TOTAL OF ACETAMINOPHEN (APAP) FROM ALL MEDS 90 Feb 06, 2019 [id number] Jan 07, 2019 T[facility]IQBRAYDEN [facility] [place] [facility] HYDROCODONE 10MG/ACETAMINOPHEN 325MG TAB Discontinued TAKE ONE TABLET BY MOUTH THREE TIMES A DAY NEEDED FOR PAIN CAUTION: DO NOT EXCEED 4000MG/DAY TOTAL OF ACETAMINOPHEN (APAP) FROM ALL MEDS 90 Dec 05, 2018 [id number] November 05, 2018 [facility] [place] [facility] HYDROCODONE 10MG/ACETAMINOPHEN 325MG TAB Discontinued TAKE ONE TABLET BY MOUTH THREE TIMES A DAY NEEDED FOR PAIN CAUTION: DO NOT EXCEED 4000MG/DAY TOTAL OF ACETAMINOPHEN (APAP) FROM ALL MEDS 90 October 25, 2018 [id number] Sep 25, [facility] [place] [facility] HYDROCODONE 10MG/ACETAMINOPHEN 325MG TAB TAKE ONE TABLET (10/325MG) BY MOUTH THREE TIMES A DAY NEEDED FOR PAIN CAUTION: DO NOT EXCEED 4000MG/DAY TOTAL OF ACETAMINOPHEN (APAP) FROM ALL MEDS 90 November 16, 2019 [id number] October 18, 2019 TARIQKOURTNEY [facility] METHOTREXATE NA 2.5MG TAB Active TAKE SEVEN TABLETS BY MOUTH EVERY WEEK 90 October 17, 2020 [id number] November 04, 2019 [facility] METHOTREXATE NA 2.5MG TAB Discontinued TAKE SEVEN TABLETS BY MOUTH EVERY WEEK 90 May 09, 2020 [id number] Aug 16, 2019 NASH KULKARNI [facility] METHOTREXATE NA 2.5MG TAB Discontinued TAKE SEVEN TABLETS BY MOUTH EVERY WEEK 90 Aug 04, 2019 [id number] Feb 22, 2019 YOU GOMEZ [facility] [place] [facility] NORTRIPTYLINE HCL 10MG CAP Active TAKE 2 CAPSULES BY MO UTH AT BEDTIME NEEDED 120 Apr 02, 2020 [id number] Nov 20, 2019 [facility] [place] NORTRIPTYLINE HCL 10MG CAP Discontinued TAKE 2 CAPSUL ES BY MOUTH AT BEDTIME NEEDED 120 Mar 20, 2019 [id number] Jan 23, 2019 [facility] OMEPRAZOLE 20MG CAP,EC Active TAKE 1 CAPSULE BY MOUTH EVERY MORNING TO LOWER STOMACH ACID. TAKE 30 MINUTES PRIOR TO FOOD. 90 October 17, 2020 [id number] October 21, 2019 [facility] OMEPRAZOLE 20MG CAP,EC Discontinued TAKE 1 CAPSULE BY MOUTH EVERY MORNING TO LOWER STOMACH ACID. TAKE 30 MINUTES PRIOR TO FOOD. 90 Oct 02, 2019 [id number] Aug 02, 2019 [facility] [place] [facility] PREDNISONE 1MG TAB Discontinued TAKE THREE TABLETS B Y MOUTH ONCE A DAY FOR INFLAMMATION AND IMMUNE RESPONSE. TAKE WITH FOOD OR MILK. 270 Fe b 2019 [id number] Apr 24, 2019 [facility] PREDNISONE 1MG TAB Discontinued TAKE FOUR TABLETS BY MOUTH ONCE A D AY 360 Apr 22, 2019 [id number] Jan 24, 2019 [facility] [place] PREDNISONE 1MG TAB Discontinued TAKE FOUR TABLETS BY MOUTH ONCE A D AY 360 Dec 29, 2018 [id number] Oct 01, 2018 NASH KULKARNI [facility] PREDNISONE 1MG TAB TAKE THREE TABLETS B Y MOUTH ONCE A DAY FOR INFLAMMATION AND IMMUNE RESPONSE. TAKE WITH FOOD OR MILK. 270 Ap r 2019 [id number] Jul 13, 2019 [facility] [place] [facility] PREDNISONE 5MG TAB Discontinued TAKE ONE TABLET BY MOUTH ONCE A DAY WITH FOOD 60 Aug 01, 2019 [id number] Sep 25, 2018 KOURTNEY POTTER [facility] [place] [facility] ROPINIROLE HCL 1MG TAB Active TAKE ONE TABLET BY MOUTH AT BED TIME 90 October 17, 2020 [id number] Nov 25, 2019 KOURTNEY POTTER [facility] ROPINIROLE HCL 1MG TAB Discontinued TAKE ONE TABLET BY MOUTH AT BED TIME 90 Dec 05, 2019 [id number] Sep 03, 2019 KRYSTAL DEJESUS [facility] [place] [facility] ROPINIROLE HCL 1MG TAB Discontinued TAKE ONE TABLET BY MOUTH AT BED TIME 90 Dec 13, 2018 [id number] Sep 12, 2018 [facility] [place] [facility] TAMSULOSIN HCL 0.4MG CAP Active: Susp TAKE 1 CAPSULE BY MOUTH ONCE A DAY FOR PROSTATE. TAKE AT THE SAME TIME EACH DAY WITH FOOD. 90 Sep 30 1 [id number] Dec 20, 2019 TARIQ,DANA [facility] [place] [facility] TAMSULOSIN HCL 0.4MG CAP Discontinued TAKE 1 CAPSULE BY MOUTH ONCE A DAY FOR PROSTATE. TAKE AT THE SAME TIME EACH DAY WITH FOOD. 90 Sep 12 0 [id number] Jun 24, 2019 KYLE BRUCETHIA [facility] [place] [facility] Problems (Conditions): All historical and current Section Date Range: From patient's date of to the date document was create d. This section includes a list of Problems (Conditions) know n to [facility] for the patient. It includes both active and inacti ve problems (conditions). The data comes from all [place] treatment facilities. Problem Status Problem Code Date of Onset Date of Resolution Comm ent(s) Provider Source Abnormal radiologic density Active [id number] [facility] TYEBRAYDEN [facility] [place] [facility] Allergic rhinitis Active 75074654 LADY SALAZAR [facility] [place] [facility] Anemia Active 065737770 [facility] [place] [facility] Chest pain (SNOMED CT 61492185) Active 786.50 [facility] [place] [facility] Chondrocalcinosis Active [id number] YOU GOMEZ [facility] [place] [facility] Chronic obstructive lung disease Active 35753085 [facility] [place] [facility] Coronary artery disease Active 36916067 Angella LINDSEY NICHOLAS Pope [facility] [place] [facility] Cough Active 85076920 LADY SALAZAR [facility] [place] [facility] Cough (SNOMED CT 03562229) Active 786.2 KOURTNEY BARRON [facility] [place] [facility] Dysarthria (SNOMED CT 9798180) Active 784.51 M KOURTNEY WONG [facility] [place] [facility] Dyspnea (SNOMED CT 441382042) Active 786.09 KOURTNEY BARKSDALE [facility] [place] [facility] Eruption due to drug Active 46144589 Abdiaziz POTTER TORY [facility] [place] [facility] Gastroesophageal reflux disease Active 240617863 KOURTNEY POTTER [facility] [place] [facility] Hallux valgus AND bunion Active 114092773 ALEXANDRO DEISY Dangelo [facility] [place] [facility] Joint pain (SNOMED CT 73680423) Active 719.40 DEISY CONTRERAS Royce [facility] [place] [facility] Joint swelling (SNOMED CT 670942136) Active 719.00 KOURTNEY POTTER [facility] [place] [facility] Knee pain Active 80940270 ROSALIAJENNIFER [facility] [place] [facility] Muscle weakness (SNOMED CT 20096812) Active 728.87 KOURTNEY POTTER [facility] [place] [facility] Neuropathy Active 638950931 TARIQKOURTNEY DAKSHAChad [facility] [place] Osteoarthritis Active 715.36 DYAN SERVIN [facility] [place] [facility] Parkinson's disease Active 25532013 ETHAN POTTER [facility] [place] [facility] Peripheral Neuropathy Active 356.9 DASARAJU,P URUSHOTHAMA [facility] [place] [facility] Personal History of Exposure to Agent Haralson Active V15.89 DEISY CONTRERAS Royce [facility] [place] [facility] Polyp of colon (SNOMED CT 63134626) Active 211.3 TARIQKOURTNEY SMITH [facility] [place] [facility] Restless legs Active 83716603 PATRICK WHITE [facility] [place] [facility] Rheumatoid arthritis Active 12074905 Abdiaziz POTTER [facility] [place] [facility] Screening, Malignancy Active V76.89 LISSETH TOLEDO [facility] [place] [facility] Sleep apnea Active 89667359 TARIQKOURTNEYHector ADEN RN [facility] [place] [facility] Synovial cyst of popliteal space (SNOMED CT 56134643) Active 727.51 KOURTNEY POTTER [facility] [place] [facility] Tobacco dependence in remission Active 494757938 KOURTNEY POTTER [facility] [place] [facility] Tobacco use Active 823372679 JENNIFER LINDSEY CAROLYN [facility] [place] [facility] Tremor Active 99719567 JENNIFER LINDSEY K S [facility] [place] [facility] Unresolved Active 63420827 LUIS ALFREDO LINDSEYORESTES CROOKSER N [facility] [place] [facility] Unresolved Active 32728828 LUIS ALFREDO LINDSEYORESTES CHEUNG N [facility] [place] [facility] Radiology Reports: +/- 30 days of the encounter No Data Provided for This Section Pathology Reports: +/- 30 days of the encounter No Data Provided for This Section Encounter Notes: All associated encounter notes This section contains the clinical notes associated to the Encounter. Date/Time Encounter Note(s) Provider Source Jul 02, 2019 04:11 PM PRIMARY CARE SECURE MESSAGIN G: [facility] TITLE: -PRIMARY CARE SECURE MESSAGING STANDARD TITLE: PRIMARY CARE SECURE MESSAGING DATE OF NOTE: JUL 02, 2019@16:11:03 ENTRY DATE: JUL 02, 2019@15:11:03 AUTHOR: JENNIFER LINDSEY EXP COSIGNER: URGENCY: STATUS: COMPLETED -[facility] CARE SECURE MESSAGING Has ADDENDA ------Original Message ------ Sent: 07/02/2019 03:04 PM From: CARLOS ROMANO To: EKS, Samantha Summers [place] Subject: LAIRD CARBIDOPS 25 MG LEVODOPA 100 MG, 2 BY MOUTH 5 TIMES A DAY. BEEN OUT SINCE SUNDAY !!!!!!!!!!!!!!!!!! I MUST !!! HAVE BY TOMORROW !!!!!!!!!!!!!!! ------Original Message ------ Sent: 07/02/2019 04:10 PM From: JENNIFER LINDSEY To: CARLOS ROMANO Subject: LAIRD to Kourtney /sofya/ JENNIFER LINDSEY LPN Signed: 07/02/2019 15:11 07/02/2019 ADDENDUM STATUS: COMPLETED Per Pharmacy. Medicine is out for delivery today. Pt notified /sofya/ JENNIFER LINDSEY LPN Signed: 07/02/2019 15:23 JENNIFER LINDSEY [facility]
--- OUTSIDE RECORDS SUMMARY | 2019-12-04 22:01 | XMS REPORT | Encounter Summary ---
Author Author [facility] CARLOS sweeney Organization [facility] Address [address] [place] [address] Phone Unavailable Care Team Providers Care Set Up Mold Technician Name Role Phone TARIQKJ PCP Unavailable Insurance [...] PLAN G MEDICARE SUPPLEMENT Dec PLAN G [id number] [phone] CARLOS ROMANO PATIENT MEDICARE (WNR) MEDICARE (M) PART A Dec 16, 2014 PART A [id number] CARLOS ROMANO PATIENT MEDICARE (WNR) MEDICARE (M) PART B Dec 16, 2014 PART B [id number] CARLOS ROMANO PATIENT MEDICO DENTAL INSURANCE DENTAL VISIONHEARING Dec 16, 2014 DENTAL VISIONHEAR [id number] [phone] CARLOS ROMANO PATIENT Selected Encounter This section includes the information on record at [facility] for the Encounter. Date/Time Encounter Type Encounter Description Reason Provider Source Jun 26, 2019 03:28 PM Outpatient Encounter ADMIN PAT ACTIVTIES (MASNO NCT) [facility] [place] [facility] Encounter Template Text not used by VA Assessments - Encounter Diagnoses No Data Provided for This Section Plan of Treatment: Future Appointments (+ 6 months) and Future Tests (+/- 45 day s) The Plan of Treatment section includes future care activities for the patient fr om all [facility] facilities. This section includes future appointments and fu ture orders which are active, pending or scheduled. Future Appointments This section includes appointments that were scheduled t o occur 6 months from the date of the Encounter, up to a maximum of 20 appointme nts. The data comes from all [facility]. Appointment Date/Time Appointment Type Appointment Facili ty Name Aug 06, 2019 01:00 PM AMBULATORY - [facility]ICINE [facility] October 17, 2019 09:00 AM AMBULATORY - MEDICINE [facility] October 27, 2019 09:45 AM AMBULATORY - NONE [facility] Nov 20, 2019 05:00 PM AMBULATORY - MEDIC[facility] Nov 24, 2019 11:20 AM AMBULATORY - NONE [facility] [place] [facility] Dec 02, 2019 10:30 AM AMBULATORY - NONE [facility] [place] [facility] Dec 03, 2019 12:30 PM AMBULATORY - NONE [facility] Dec 04, 2019 10:45 AM AMBULATORY - MEDICINE [facility] Dec 10, 2019 01:30 PM AMBULATORY - MEDICINE [facility] Active, Pending, and Scheduled Orders This section [...] the Encounter. The data comes from all [facility]. Test Date/Time Test Type Test Details Facility Name Aug 08, 2019 01:27 PM Consult Order TO-NEUROLOGY OUTPT -[id number] [employer] [facility] [place] [facility] Surgical Procedures: All associated [...] Adverse Reactions (ADR s) on record with [place] for the patient. The data comes from a ll [place] treatment facilities. It does not list Allergies/ADRs that were removed or entered in error. Some allergies/ADRs may be reported in t he Immunization section. Allergen Event Date Event Type Reaction(s) Severity Source PANTOPRAZOLE Oct 01, 2018 Propensity to adverse reactions to drug (disorder) Eruption [facility] PEN[place] Jul 17, 2012 Propensity to adverse reactions to drug (disorder) Peripheral edema [facility] Medications: VA dispensed (-15 months) and Non-VA Documented (Obtained Outside A) Section Date Range: 1) prescriptions processed by a VA pharmacy in the last 15 m [facility], and 2) all medications recorded in the [place] medical record as "non-VA medic ations". Pharmacy terms refer to [place] pharmacy's work on prescriptions. VA patient s are advised to take their medications as instructed by their health care team. The data comes from all [place] treatment facilities. Glossary of Pharmacy Terms:Active = A prescription that can be filled at the local [place] pharmacy.Active: On Hold = An active prescription that will not be filled until pharmacy resolves the issue.Active: Susp = An active prescription that is not scheduled to be filled yet.Clinic Order = A medication received during a visit to a [place] clinic or emergency department (currently not available).Discontinued [...] FOR INHALATION ONCE 1 Nov 16, 2018 [id number] October 17, 2018 KJ POTTER [facility] ALBUTEROL SO4 90MCG/ACTUAT (CFC-F) INHL,ORAL,6.7GM Active INHALE 2 PUFFS BY ORAL INHALATION FOUR TIMES A DAY NEEDED - RINSE MOUTHPIECE FREQUENTLY TO PREVENT CLOGGING 1 Apr 24, 2020 [id number] October 18, 2019 KJ POTTER [facility] ALBUTEROL SO4 90MCG/ACTUAT (CFC-F) INHL,ORAL,6.7GM Discontin ued INHALE 2 PUFFS BY ORAL INHALATION FOUR TIMES A DAY NEEDED - RINSE MOUTHPIECE FREQUENTLY TO PREVENT CLOGGING 2 Apr 24, 2020 [id number] Apr 24, 2019 KJ POTTER [facility] BUDESONIDE 160MCG/FORMOTEROL FUM 4.5MCG/SPRAY INHL,ORAL,10.2 GM Active INHALE 2 PUFFS BY ORAL INHALATION TWO TIMES A DAY FOR BREATHING. SHAKE WELL. RINSE MOUTH AND SPIT AFTER EACH USE. 2 Apr 24, 2020 [id number] October 17, 2019 KJ JOSHI [facility] CALCIUM 500MG (CA CARBONATE-1.25GM) TAB Active: Susp TAKE ONE TABLET BY MOUTH TWO TIMES A DAY 180 Nov 20, 2020 [id number] Jan 09, 2020 KJ POTTER [facility] CALCIUM 500MG (CA CARBONATE-1.25GM) TAB Discontinued TAKE ONE TABLET BY MOUTH TWO TIMES A DAY 180 Jan 08, 2020 [id number] October 21, 2019 KJ POTTER [facility] [place] CALCIUM 500MG (CA CARBONATE-1.25GM) TAB Discontinued TAKE ONE TABLET BY MOUTH TWO TIMES A DAY 180 Dec 29, 2018 [id number] Oct 01, 2018 NASH KULKARNI [facility] CARBIDOPA 25MG/LEVODOPA 100MG TAB Active TAKE 2 TABLETS BY MOUTH FOUR TIMES A DAY FOR PARKINSON'S DISEASE. DO NOT TAKE WITH FOOD. 240 Nov 24, 2020 [id number] Nov 27, 2019 ALLEGRA HOWE [facility] [place] CARBIDOPA 25MG/LEVODOPA 100MG TAB Discontinued TAKE T WO TABLETS BY MOUTH FIVE TIMES DAILY FOR PARKINSON'S DISEASE. DO NOT TAKE WITH FOOD. 600 Jul 02, 2020 [id number] Nov 19, 2019 [facility] [place] [facility] CARBIDOPA 25MG/LEVODOPA 100MG TAB Discontinued TAKE 2 TABLETS BY MOUTH FIVE TIMES DAILY FOR PARKINSON'S DISEASE. DO NOT TAKE WITH FOOD. 300 Jun 30, 2020 [id number] Jul 01, 2019 [facility] [place] [facility] CARBIDOPA 25MG/LEVODOPA 100MG TAB Discontinued TAKE 2 TABLETS BY MOUTH FOUR TIMES A DAY FOR PARKINSON'S DISEASE. DO NOT TAKE WITH FOOD. 240 Jun 24, 2020 [id number] Jun 26, 2019 [facility] [place] [facility] CARBIDOPA 25MG/LEVODOPA 100MG TAB Discontinued TAKE 2 TABLETS BY MOUTH FOUR TIMES A DAY FOR PARKINSON'S DISEASE. DO NOT TAKE WITH FOOD. 240 Dec 25, 2019 [id number] May 15, 2019 [facility] [place] [facility] CARBIDOPA 25MG/LEVODOPA 100MG TAB Discontinued TAKE 2 TABLETS BY MOUTH FOUR TIMES A DAY FOR PARKINSON'S DISEASE. DO NOT TAKE WITH FOOD. 240 Jun 07, 2019 [id number] Nov 18, 2018 [facility] [place] [facility] CHOLECALCIFEROL 25MCG (1,000UNIT) TAB Active: Susp TA KE TWO TABLETS BY MOUTH ONCE A DAY FOR VITAMIN D DEFICIENCY 200 Nov 20, 2020 [id number] Dec 172019 [facility] CHOLECALCIFEROL 25MCG (1,000UNIT) TAB Discontinued TA KE TWO TABLETS BY MOUTH ONCE A DAY FOR VITAMIN D DEFICIENCY 200 Dec 25, 2019 [id number] October [facility] [place] CHOLECALCIFEROL 25MCG (1,000UNIT) TAB Discontinued TA KE TWO TABLETS BY MOUTH ONCE A DAY FOR VITAMIN D DEFICIENCY 200 Oct 10, 2018 [id number] Aug 172018 [facility] CLOPIDOGREL BISULFATE 75MG TAB Active: Susp TAKE ONE TABLET BY MOUTH ONCE A DAY TO PREVENT BLOOD CLOTS 90 Apr 24, 2020 [id number] Dec 19, 2019 [facility] CLOPIDOGREL BISULFATE 75MG TAB Discontinued TAKE ONE TABLET BY MOUTH ONCE A DAY TO PREVENT BLOOD CLOTS 90 Jun 01, 2019 [id number] Mar 13, 2019 [facility] [place] [facility] DIPHENHYDRAMINE HCL 25MG CAP Non-VA TAKE 1 CAPSULE BY MOUTH EVERY 6 HOURS NEEDED Non-VA Documented by: KJ POTTER nted at: [facility] FLUDROCORTISONE ACETATE 0.1MG TAB Active TAKE ONE TABLET BY M OUTH ONCE A DAY 90 Nov 19, 2020 [id number] Nov 20, 2019 [facility] [place] [facility] FOLIC ACID 1MG TAB Non- VA TAKE ONE TABLET BY MOUTH ONCE A DAY N on-VA Documented by: KJ POTTER nted at: [facility] GABAPENTIN 300MG CAP Active TAKE 1 CAPSULE BY M OUTH 5 TIMES A DAY FOR PAIN AND TREMORS. 300 October 17, 2020 [id number] October 18, 2019 [facility] GAB[facility] 300MG CAP Discontinued TAKE ONE CAPSULE BY MOUTH FOUR TIMES A DAY FOR PAIN AND TREMORS. 240 Jan 08, 2020 [id number] Oct 14, 2019 [facility] GABAP[facility] 300MG CAP Discontinued TAKE ONE CAPSULE BY MOUTH FOUR TIMES A DAY FOR PAIN AND TREMORS. 240 Mar 08, 2019 [id number] Jan 07, [address] [facility] [place] [facility] HYDROCODONE 10MG/ACETAMINOPHEN 325MG TAB Active TAKE ONE TABLET (10/325MG) BY MOUTH THREE TIMES A DAY NEEDED FOR PAIN CAUTION: DO NOT EXCEED 4000MG/DAY TOTAL OF ACETAMINOPHEN (APAP) FROM ALL MEDS 90 Dec 20, 2019 [id number] Nov 21, 2019 [facility] HYDROCODONE 10MG/ACETAMINOPHEN 325MG TAB Discontinued TAKE ONE TABLET (10/325MG) BY MOUTH THREE TIMES A DAY NEEDED FOR PAIN CAUTION: DO NOT EXCEED 4000MG/DAY TOTAL OF ACETAMINOPHEN (APAP) FROM ALL MEDS 90 Sep 17, 2 020 [id number] Sep 04, [address] [facility] [place] [facility] HYDROCODONE 10MG/ACETAMINOPHEN 325MG TAB Discontinued TAKE ONE TABLET BY MOUTH THREE TIMES A DAY NEEDED FOR PAIN CAUTION: DO NOT EXCEED 4000MG/DAY TOTAL OF ACETAMINOPHEN (APAP) FROM ALL MEDS 90 Jul 26, 2019 [id number] Jun 26, 2019 [facility] [place] HYDROCODONE 10MG/ACETAMINOPHEN 325MG TAB Discontinued TAKE ONE TABLET BY MOUTH THREE TIMES A DAY NEEDED FOR PAIN CAUTION: DO NOT EXCEED 4000MG/DAY TOTAL OF ACETAMINOPHEN (APAP) FROM ALL MEDS 90 Jun 27, 2019 [id number] May 29, 2019 [facility] [place] [facility] HYDROCODONE 10MG/ACETAMINOPHEN 325MG TAB Discontinued TAKE ONE TABLET BY MOUTH THREE TIMES A DAY NEEDED FOR PAIN CAUTION: DO NOT EXCEED 4000MG/DAY TOTAL OF ACETAMINOPHEN (APAP) FROM ALL MEDS 90 May 08, 2019 [id number] Apr 08, 2019 [facility] [place] [facility] HYDROCODONE 10MG/ACETAMINOPHEN 325MG TAB Discontinued TAKE ONE TABLET BY MOUTH THREE TIMES A DAY NEEDED FOR PAIN CAUTION: DO NOT EXCEED 4000MG/DAY TOTAL OF ACETAMINOPHEN (APAP) FROM ALL MEDS 90 Mar 28, 2019 [id number] Feb 26, 2019 [facility] [place] [facility] HYDROCODONE 10MG/ACETAMINOPHEN 325MG TAB Discontinued TAKE ONE TABLET BY MOUTH THREE TIMES A DAY NEEDED FOR PAIN CAUTION: DO NOT EXCEED 4000MG/DAY TOTAL OF ACETAMINOPHEN (APAP) FROM ALL MEDS 90 Feb 06, 2019 [id number] Jan 07, 2019 [facility] [place] [facility] HYDROCODONE 10MG/ACETAMINOPHEN 325MG TAB Discontinued TAKE ONE TABLET BY MOUTH THREE TIMES A DAY NEEDED FOR PAIN CAUTION: DO NOT EXCEED 4000MG/DAY TOTAL OF ACETAMINOPHEN (APAP) FROM ALL MEDS 90 Dec 05, 2018 [id number] November 05, 2018 [facility] [place] [facility] HYDROCODONE 10MG/ACETAMINOPHEN 325MG TAB Discontinued TAKE ONE TABLET BY MOUTH THREE TIMES A DAY NEEDED FOR PAIN CAUTION: DO NOT EXCEED 4000MG/DAY TOTAL OF ACETAMINOPHEN (APAP) FROM ALL MEDS 90 October 25, 2018 [id number] Sep 25, 2018 [facility] [place] [facility] HYDROCODONE 10MG/ACETAMINOPHEN 325MG TAB TAKE ONE TABLET (10/325MG) BY MOUTH THREE TIMES A DAY NEEDED FOR PAIN CAUTION: DO NOT EXCEED 4000MG/DAY TOTAL OF ACETAMINOPHEN (APAP) FROM ALL MEDS 90 November 16, 2019 [id number] October 18, 2019 TARIQKJ [facility] METHOTREXATE NA 2.5MG TAB Active TAKE SEVEN TABLETS BY MOUTH EVERY WEEK 90 October 17, 2020 [id number] November 04, 2019 [facility] METHOTREXATE NA 2.5MG TAB Discontinued TAKE SEVEN TABLETS BY MOUTH EVERY WEEK 90 May 09, 2020 [id number] Aug 16, 2019 NASH KULKARNI [facility] METHOTREXATE NA 2.5MG TAB Discontinued TAKE SEVEN TABLETS BY MOUTH EVERY WEEK 90 Aug 04, 2019 [id number] Feb 22, 2019 YOU GOMEZ [facility] [place] NORTRIPTYLINE HCL 10MG CAP Active TAKE 2 CAPSULES BY MO UTH AT BEDTIME NEEDED 120 Apr 02, 2020 [id number] Nov 20, 2019 [facility] [place] NORTRIPTYLINE HCL 10MG CAP Discontinued TAKE 2 CAPSUL ES BY MOUTH AT BEDTIME NEEDED 120 Mar 20, 2019 [id number] Jan 23, 2019 [facility] OMEPRAZOLE 20MG CAP,EC Active TAKE 1 CAPSULE BY MOUTH EVERY MORNING TO LOWER STOMACH ACID. TAKE 30 MINUTES PRIOR TO FOOD. 90 October 17, 2020 [id number] October 21, 2019 [facility] OMEPRAZOLE 20MG CAP,EC Discontinued TAKE 1 CAPSULE BY MOUTH EVERY MORNING TO LOWER STOMACH ACID. TAKE 30 MINUTES PRIOR TO FOOD. 90 Oct 02, 2019 [id number] Aug 02, 2019 [facility] [place] PREDNISONE 1MG TAB Discontinued TAKE THREE TABLETS B Y MOUTH ONCE A DAY FOR INFLAMMATION AND IMMUNE RESPONSE. TAKE WITH FOOD OR MILK. 270 Fe b 2019 [id number] Apr 24, 2019 [facility] PREDNISONE 1MG TAB Discontinued TAKE FOUR TABLETS BY MOUTH ONCE A D AY 360 Apr 22, 2019 [id number] Jan 24, 2019 [facility]UE DAVIES [facility] [place] PREDNISONE 1MG TAB Discontinued TAKE FOUR TABLETS BY MOUTH ONCE A D AY 360 Dec 29, 2018 [id number] Oct 01, 2018 NASH KULKARNI V [facility] PREDNISONE 1MG TAB TAKE THREE TABLETS B Y MOUTH ONCE A DAY FOR INFLAMMATION AND IMMUNE RESPONSE. TAKE WITH FOOD OR MILK. 270 Ap r 2019 [id number] Jul 13, 2019 [facility] [place] PREDNISONE 5MG TAB Discontinued TAKE ONE TABLET BY MOUTH ONCE A DAY WITH FOOD 60 Aug 01, 2019 [id number] Sep 25, 2018 KJ POTTER [facility] [place] [facility] ROPINIROLE HCL 1MG TAB Active TAKE ONE TABLET BY MOUTH AT BED TIME 90 October 17, 2020 [id number] Nov 25, 2019 TARIQ,DANA [facility] ROPINIROLE HCL 1MG TAB Discontinued TAKE ONE TABLET BY MOUTH AT BED TIME 90 Dec 05, 2019 [id number] Sep 03, 2019 KRYSTAL DEJESUS [facility] [place] ROPINIROLE HCL 1MG TAB Discontinued TAKE ONE TABLET BY MOUTH AT BED TIME 90 Dec 13, 2018 [id number] Sep 12, 2018 [facility] [place] [facility] TAMSULOSIN HCL 0.4MG CAP Active: Susp TAKE 1 CAPSULE BY MOUTH ONCE A DAY FOR PROSTATE. TAKE AT THE SAME TIME EACH DAY WITH FOOD. 90 Sep 30 1 [id number] Dec 20, 2019 TARIQ,DANA [facility] [place] [facility] TAMSULOSIN HCL 0.4MG CAP Discontinued TAKE 1 CAPSULE BY MOUTH ONCE A DAY FOR PROSTATE. TAKE AT THE SAME TIME EACH DAY WITH FOOD. 90 Sep 12 0 [id number] Jun 24, 2019 TEOLIS [facility] [place] Problems (Conditions): All historical and current Section Date Range: From patient's date of to the date document was create d. This section includes a list of Problems (Conditions) know n to [facility] for the patient. It includes both active and inacti ve problems (conditions). The data comes from all [place] treatment facilities. Problem Status Problem Code Date of Onset Date of Resolution Comm ent(s) Provider Source Abnormal radiologic density Active [id number] [facility] TYEKJ CHUNG [facility] [place] [facility] Allergic rhinitis Active 96549533 LADY SALAZAR [facility] [place] [facility] Anemia Active 332423733 [facility] [place] [facility] Chest pain (SNOMED CT 58785718) Active 786.50 [facility] [place] [facility] Chondrocalcinosis Active 602125843 YOU GOMEZ [facility] [place] [facility] Chronic obstructive lung disease Active 10896725 [facility] [place] Coronary artery disease Active 16687825 Angella LINDSEY Toshia [facility] [place] [facility] Cough Active 27466086 LADY SALAZAR [facility] [place] Cough (SNOMED CT 25198691) Active 786.2 KJ BARRON [facility] [place] Dysarthria (SNOMED CT 5297915) Active 784.51 M KJ WONG [facility] [place] Dyspnea (SNOMED CT 469341090) Active 786.09 KJ BARKSDALE [facility] [place] Eruption due to drug Active 86893730 Abdiaziz POTTER TORY [facility] [place] Gastroesophageal reflux disease Active 469155526 KJ POTTER [facility] [place] [facility] Hallux valgus AND bunion Active 509499894 ALEXANDRO DEISY Dangelo [facility] [place] [facility] Joint pain (SNOMED CT 48765236) Active 719.40 DEISY CONTRERAS Royce [facility] [place] [facility] Joint swelling (SNOMED CT 974751580) Active 719.00 KJ POTTER [facility] [place] Knee pain Active 01974284 ROSALIAJENNIFER Toshia [facility] [place] Muscle weakness (SNOMED CT 38526579) Active 728.87 KJ POTTER [facility] [place] [facility] Neuropathy Active 992022166 KJ POTTER [facility] [place] Osteoarthritis Active 715.36 GARETHDYAN MARIE W [facility] [place] Parkinson's disease Active 41224166 ETHAN POTTER [facility] [place] Peripheral Neuropathy Active 356.9 DASARAJU,P URUSHOTHAMA [facility] [place] Personal History of Exposure to Agent [place] Active V15.89 DEISY CONTRERAS Royce [facility] [place] [facility] Polyp of colon (SNOMED CT 99604971) Active 211.3 TARIQKJ SMITH [facility] [place] [facility] Restless legs Active 25436291 [facility]ICK WH[facility] [place] Rheumatoid arthritis Active 40090058 Abdiaziz POTTER [facility] [place] [facility] Screening, Malignancy Active V76.89 LISSETH TOLEDO [facility] [place] [facility] Sleep apnea Active 56733710 KJ POTTER RN [facility] [place] Synovial cyst of popliteal space (SNOMED CT 50392891) Active 727.51 TARIQ,DANA [facility] [place] [facility] Tobacco dependence in remission Active 324759847 KJ POTTER [facility] [place] [facility] Tobacco use Active 477869165 JENNIFER LINDSEY CAROLYN [facility] [place] Tremor Active 45763553 JENNIFER LINDSEY RUMA K S [facility] [place] Unresolved Active 97266289 JENNIFER LINDSEYER N [facility] [place] Unresolved Active 77429635 JENNIFER LINDSEYER N [facility] [place] Radiology Reports: +/- 30 days of the encounter No Data Provided for This Section Pathology Reports: +/- 30 days of the encounter No Data Provided for This Section Encounter Notes: All associated encounter notes This section contains the clinical notes associated to the Encounter. Date/Time Encounter Note(s) Provider Source Jun 26, 2019 03:29 PM CARE MANAGEMENT NOTE: LOCAL TITLE: EK-PACT CARE MANAGEMENT STANDARD TITLE: CARE MANAGEMENT NOTE DATE OF NOTE: JUN 26, 2019@15:29 ENTRY DATE: JUN 26, 2019@15:29:11 AUTHOR: JULIO LANG EXP COSIGNER: URGENCY: STATUS: COMPLETED LDCT lung screeing order form returned from [employer] [facility] for addition information. To provider and then faxed back to [employer]. /sofya/ JULIO LANG RN Signed: 06/26/2019 15:41 JULIO LANG [facility] [place]
--- OUTSIDE RECORDS SUMMARY | 2019-12-04 22:01 | XMS REPORT | Encounter Summary ---
Author Author Department of [facility] CARLOS sweeney Organization Department of [facility] Address [address] [place] [address] Phone Unavailable Care Team Providers Care Licensed Dispensing Optician Name Role Phone TARIQKJ PCP Unavailable Insurance [...] PLAN G MEDICARE SUPPLEMENT Dec PLAN G [id number] [phone] CARLOS ROMANO PATIENT MEDICARE (WNR) MEDICARE (M) PART A Dec 16, 2014 PART A [id number] [phone] CARLOS ROMANO PATIENT MEDICARE (WNR) MEDICARE (M) PART B Dec 16, 2014 PART B [id number] [phone] CARLOS ROMANO PATIENT MEDICO DENTAL INSURANCE DENTAL VISIONHEARING Dec 16, 2014 DENTAL VISIONHEAR [id number] [phone] CARLOS ROMANO PATIENT Selected Encounter This section includes the information on record at [facility] for the Encounter. Date/Time Encounter Type Encounter Description Reason Provider Source Jul 02, 2019 03:56 PM Outpatient Encounter ADMIN PAT ACTIVTIES (MASNO NCT) [facility] [place] IHE Encounter Template Text not used by VA Assessments - Encounter Diagnoses No Data Provided for This Section Plan of Treatment: Future Appointments (+ 6 months) and Future Tests (+/- 45 day s) The Plan of Treatment section includes future care activities for the patient fr om all [facility] facilities. This section includes future appointments and fu ture orders which are active, pending or scheduled. Future Appointments This section includes appointments that were scheduled t o occur 6 months from the date of the Encounter, up to a maximum of 20 appointme nts. The data comes from all [facility]. Appointment Date/Time Appointment Type Appointment Facili ty Name Aug 06, 2019 01:00 PM AMBULATORY - MEDICINE [facility] October 17, 2019 09:00 AM [facility] - [place]IC[place] [facility] [place] October 27, 2019 09:45 AM AMBULATORY - NONE [facility] [place] [facility] Nov 20, 2019 05:00 PM [facility]BULATORY - [place]IC[place] [facility] [place] Nov 24, 2019 11:20 AM AMBULATORY - NONE [facility] [place] [facility] Dec 02, 2019 10:30 AM AMBULATORY - NONE [facility] [place] [facility] Dec 03, 2019 12:30 PM AMBULATORY - NONE [facility] Dec 04, 2019 10:45 AM AMBULATORY - MEDICINE [facility] Dec 10, 2019 01:30 PM AMBULATORY - MEDICINE [facility] Active, Pending, and Scheduled Orders This section [...] the Encounter. The data comes from all [facility]. Test Date/Time Test Type Test Details Facility Name Aug 08, 2019 01:27 PM Consult Order TO-NEUROLOGY OUTPT -[id number] Cons Call Out Clerk's Choice [facility] [place] [facility] Surgical Procedures: All [...] Adverse Reactions (ADR s) on record with [facility] for the patient. The data comes from a ll [facility] treatment facilities. It does not list Allergies/ADRs that were removed or entered in error. Some allergies/ADRs may be reported in t he Immunization section. Allergen Event Date Event Type Reaction(s) Severity Source PANTOPRAZOLE Oct 01, 2018 Propensity to adverse reactions to drug (disorder) Eruption [facility] PENIC[place] Jul 17, 2012 Propensity to adverse reactions to drug (disorder) Peripheral edema [facility] Medications: VA dispensed (-15 months) and Non-VA Documented (Obtained Outside A) Section Date Range: 1) prescriptions processed by a VA pharmacy in the last 15 m [facility], and 2) all medications recorded in the [facility] medical record as "non-VA medic ations". Pharmacy terms refer to [facility] pharmacy's work on prescriptions. [facility] patient s are advised to take their medications as instructed by their health care team. The data comes from all [facility] treatment facilities. Glossary of Pharmacy Terms:Active = A prescription that can be filled at the local [facility] pharmacy.Active: On Hold = An active prescription that will not be filled until pharmacy resolves the issue.Active: Susp = An active prescription that is not scheduled to be filled yet.Clinic Order = A medication received during a visit to a [facility] clinic or emergency department (currently not available).Discontinued [...] FOR INHALATION ONCE 1 Nov 16, 2018 [id number] October 17, 2018 KJ POTTER [facility] ALBUTEROL SO4 90MCG/ACTUAT (CFC-F) INHL,ORAL,6.7GM Active INHALE 2 PUFFS BY ORAL INHALATION FOUR TIMES A DAY NEEDED - RINSE MOUTHPIECE FREQUENTLY TO PREVENT CLOGGING 1 Apr 24, 2020 [id number] October 18, 2019 KJ POTTER [facility] ALBUTEROL SO4 90MCG/ACTUAT (CFC-F) INHL,ORAL,6.7GM Discontin ued INHALE 2 PUFFS BY ORAL INHALATION FOUR TIMES A DAY NEEDED - RINSE MOUTHPIECE FREQUENTLY TO PREVENT CLOGGING 2 Apr 24, 2020 [id number] Apr 24, 2019 KJ POTTER [facility] BUDESONIDE 160MCG/FORMOTEROL FUM 4.5MCG/SPRAY INHL,ORAL,10.2 GM Active INHALE 2 PUFFS BY ORAL INHALATION TWO TIMES A DAY FOR BREATHING. SHAKE WELL. RINSE MOUTH AND SPIT AFTER EACH USE. 2 Apr 24, 2020 [id number] October 17, 2019 KJ JOSHI [facility] CALCIUM 500MG (CA CARBONATE-1.25GM) TAB Active: Susp TAKE ONE TABLET BY MOUTH TWO TIMES A DAY 180 Nov 20, 2020 [id number] Jan 09, 2020 KJ POTTER [facility] CALCIUM 500MG (CA CARBONATE-1.25GM) TAB Discontinued TAKE ONE TABLET BY MOUTH TWO TIMES A DAY 180 Jan 08, 2020 [id number] October 21, 2019 KJ POTTER [facility] [place] [facility] CALCIUM 500MG (CA CARBONATE-1.25GM) TAB Discontinued TAKE ONE TABLET BY MOUTH TWO TIMES A DAY 180 Dec 29, 2018 [id number] Oct 01, 2018 NASH KULKARNI [facility] CARBIDOPA 25MG/LEVODOPA 100MG TAB Active TAKE 2 TABLETS BY MOUTH FOUR TIMES A DAY FOR PARKINSON'S DISEASE. DO NOT TAKE WITH FOOD. 240 Nov 24, 2020 [id number] Nov 27, 2019 ALLEGRA HOWE [facility] [place] [facility] CARBIDOPA 25MG/LEVODOPA 100MG TAB Discontinued TAKE T WO TABLETS BY MOUTH FIVE TIMES DAILY FOR PARKINSON'S DISEASE. DO NOT TAKE WITH FOOD. 600 Jul 02, 2020 [id number] Nov 19, 2019 [facility] [place] [facility] CARBIDOPA 25MG/LEVODOPA 100MG TAB Discontinued TAKE 2 TABLETS BY MOUTH FIVE TIMES DAILY FOR PARKINSON'S DISEASE. DO NOT TAKE WITH FOOD. 300 Jun 30, 2020 [id number] Jul 01, 2019 [facility] [place] [facility] CARBIDOPA 25MG/LEVODOPA 100MG TAB Discontinued TAKE 2 TABLETS BY MOUTH FOUR TIMES A DAY FOR PARKINSON'S DISEASE. DO NOT TAKE WITH FOOD. 240 Jun 24, 2020 [id number] Jun 26, 2019 [facility] [place] [facility] CARBIDOPA 25MG/LEVODOPA 100MG TAB Discontinued TAKE 2 TABLETS BY MOUTH FOUR TIMES A DAY FOR PARKINSON'S DISEASE. DO NOT TAKE WITH FOOD. 240 Dec 25, 2019 [id number] May 15, 2019 [facility] [place] [facility] CARBIDOPA 25MG/LEVODOPA 100MG TAB Discontinued TAKE 2 TABLETS BY MOUTH FOUR TIMES A DAY FOR PARKINSON'S DISEASE. DO NOT TAKE WITH FOOD. 240 Jun 07, 2019 [id number] Nov 18, 2018 [facility] [place] [facility] CHOLECALCIFEROL 25MCG (1,000UNIT) TAB Active: Susp TA KE TWO TABLETS BY MOUTH ONCE A DAY FOR VITAMIN D DEFICIENCY 200 Nov 20, 2020 [id number] Dec 172019 [facility] CHOLECALCIFEROL 25MCG (1,000UNIT) TAB Discontinued TA KE TWO TABLETS BY MOUTH ONCE A DAY FOR VITAMIN D DEFICIENCY 200 Dec 25, [id number] [facility] [place] [facility] CHOLECALCIFEROL 25MCG (1,000UNIT) TAB Discontinued TA KE TWO TABLETS BY MOUTH ONCE A DAY FOR VITAMIN D DEFICIENCY 200 Oct 10, 2018 [id number] Aug 172018 [facility] CLOPIDOGREL BISULFATE 75MG TAB Active: Susp TAKE ONE TABLET BY MOUTH ONCE A DAY TO PREVENT BLOOD CLOTS 90 Apr 24, 2020 [id number] Dec 19, 2019 [facility] CLOPIDOGREL BISULFATE 75MG TAB Discontinued TAKE ONE TABLET BY MOUTH ONCE A DAY TO PREVENT BLOOD CLOTS 90 Jun 01, 2019 [id number] Mar 13, 2019 [facility] [place] [facility] DIPHENHYDRAMINE HCL 25MG CAP Non-VA TAKE 1 CAPSULE BY MOUTH EVERY 6 HOURS NEEDED Non-VA Documented by: KJ POTTER nted at: [facility] FLUDROCORTISONE ACETATE 0.1MG TAB Active TAKE ONE TABLET BY M OUTH ONCE A DAY 90 Nov 19, 2020 [id number] Nov 20, 2019 [facility] [place] [facility] FOLIC ACID 1MG TAB Non- [facility] TAKE ONE TABLET BY MOUTH ONCE A DAY N on-VA Documented by: KJ POTTER nted at: [facility] GABAPENTIN 300MG CAP Active TAKE 1 CAPSULE BY M OUTH 5 TIMES A DAY FOR PAIN AND TREMORS. 300 October 17, 2020 [id number] October 18, 2019 [facility] GAB[facility] 300MG CAP Discontinued TAKE ONE CAPSULE BY MOUTH FOUR TIMES A DAY FOR PAIN AND TREMORS. 240 Jan 08, 2020 [id number] Oct 14, 2019 [facility] GABAP[facility] 300MG CAP Discontinued TAKE ONE CAPSULE BY MOUTH FOUR TIMES A DAY FOR PAIN AND TREMORS. 240 Mar 08, 2019 [id number] Jan 07, 2019 [facility] [place] [facility] HYDROCODONE 10MG/ACETAMINOPHEN 325MG TAB Active TAKE ONE TABLET (10/325MG) BY MOUTH THREE TIMES A DAY NEEDED FOR PAIN CAUTION: DO NOT EXCEED 4000MG/DAY TOTAL OF ACETAMINOPHEN (APAP) FROM ALL MEDS 90 Dec 20, 2019 [id number] Nov 21, 2019 [facility] HYDROCODONE 10MG/ACETAMINOPHEN 325MG TAB Discontinued TAKE ONE TABLET (10/325MG) BY MOUTH THREE TIMES A DAY NEEDED FOR PAIN CAUTION: DO NOT EXCEED 4000MG/DAY TOTAL OF ACETAMINOPHEN (APAP) FROM ALL MEDS 90 Sep 17, 2 020 [id number] Sep 04, 2019 [facility] [place] [facility] HYDROCODONE 10MG/ACETAMINOPHEN 325MG TAB Discontinued TAKE ONE TABLET BY MOUTH THREE TIMES A DAY NEEDED FOR PAIN CAUTION: DO NOT EXCEED 4000MG/DAY TOTAL OF ACETAMINOPHEN (APAP) FROM ALL MEDS 90 Jul 26, 2019 [id number] Jun 26, 2019 [facility] [place] [facility] HYDROCODONE 10MG/ACETAMINOPHEN 325MG TAB Discontinued TAKE ONE TABLET BY MOUTH THREE TIMES A DAY NEEDED FOR PAIN CAUTION: DO NOT EXCEED 4000MG/DAY TOTAL OF ACETAMINOPHEN (APAP) FROM ALL MEDS 90 Jun 27, 2019 [id number] May 29, 2019 [facility] [place] [facility] HYDROCODONE 10MG/ACETAMINOPHEN 325MG TAB Discontinued TAKE ONE TABLET BY MOUTH THREE TIMES A DAY NEEDED FOR PAIN CAUTION: DO NOT EXCEED 4000MG/DAY TOTAL OF ACETAMINOPHEN (APAP) FROM ALL MEDS 90 May 08, 2019 [id number] Apr 08, 2019 [facility] [facility] [place] [facility] HYDROCODONE 10MG/ACETAMINOPHEN 325MG TAB Discontinued TAKE ONE TABLET BY MOUTH THREE TIMES A DAY NEEDED FOR PAIN CAUTION: DO NOT EXCEED 4000MG/DAY TOTAL OF ACETAMINOPHEN (APAP) FROM ALL MEDS 90 Mar 28, 2019 [id number] Feb 26, 2019 [facility] [place] [facility] HYDROCODONE 10MG/ACETAMINOPHEN 325MG TAB Discontinued TAKE ONE TABLET BY MOUTH THREE TIMES A DAY NEEDED FOR PAIN CAUTION: DO NOT EXCEED 4000MG/DAY TOTAL OF ACETAMINOPHEN (APAP) FROM ALL MEDS 90 Feb 06, 2019 [id number] Jan 07, 2019 [facility] [place] [facility] HYDROCODONE 10MG/ACETAMINOPHEN 325MG TAB Discontinued TAKE ONE TABLET BY MOUTH THREE TIMES A DAY NEEDED FOR PAIN CAUTION: DO NOT EXCEED 4000MG/DAY TOTAL OF ACETAMINOPHEN (APAP) FROM ALL MEDS 90 Dec 05, 2018 [id number] November 05, 2018 [facility] [place] [facility] HYDROCODONE 10MG/ACETAMINOPHEN 325MG TAB Discontinued TAKE ONE TABLET BY MOUTH THREE TIMES A DAY NEEDED FOR PAIN CAUTION: DO NOT EXCEED 4000MG/DAY TOTAL OF ACETAMINOPHEN (APAP) FROM ALL MEDS 90 October 25, 2018 [id number] Sep 25, 2018 [facility] [place] HYDROCODONE 10MG/ACETAMINOPHEN 325MG TAB TAKE ONE TABLET (10/325MG) BY MOUTH THREE TIMES A DAY NEEDED FOR PAIN CAUTION: DO NOT EXCEED 4000MG/DAY TOTAL OF ACETAMINOPHEN (APAP) FROM ALL MEDS 90 November 16, 2019 [id number] October 18, 2019 TARIQKJ [facility] METHOTREXATE NA 2.5MG TAB Active TAKE SEVEN TABLETS BY MOUTH EVERY WEEK 90 October 17, 2020 [id number] November 04, 2019 [facility] METHOTREXATE NA 2.5MG TAB Discontinued TAKE SEVEN TABLETS BY MOUTH EVERY WEEK 90 May 09, 2020 [id number] Aug 16, 2019 NASH KULKARNI [facility] METHOTREXATE NA 2.5MG TAB Discontinued TAKE SEVEN TABLETS BY MOUTH EVERY WEEK 90 Aug 04, 2019 [id number] Feb 22, 2019 YOU GOMEZ [facility] [place] [facility] NORTRIPTYLINE HCL 10MG CAP Active TAKE 2 CAPSULES BY MO UTH AT BEDTIME NEEDED 120 Apr 02, 2020 [id number] Nov 20, 2019 [facility] [place] NORTRIPTYLINE HCL 10MG CAP Discontinued TAKE 2 CAPSUL ES BY MOUTH AT BEDTIME NEEDED 120 Mar 20, 2019 [id number] Jan 23, 2019 [facility] OMEPRAZOLE 20MG CAP,EC Active TAKE 1 CAPSULE BY MOUTH EVERY MORNING TO LOWER STOMACH ACID. TAKE 30 MINUTES PRIOR TO FOOD. 90 October 17, 2020 [id number] October 21, 2019 [facility] OMEPRAZOLE 20MG CAP,EC Discontinued TAKE 1 CAPSULE BY MOUTH EVERY MORNING TO LOWER STOMACH ACID. TAKE 30 MINUTES PRIOR TO FOOD. 90 Oct 02, 2019 [id number] Aug 02, 2019 [facility] [place] [facility] PREDNISONE 1MG TAB Discontinued TAKE THREE TABLETS B Y MOUTH ONCE A DAY FOR INFLAMMATION AND IMMUNE RESPONSE. TAKE WITH FOOD OR MILK. 270 Fe b 2019 [id number] Apr 24, 2019 [facility] PREDNISONE 1MG TAB Discontinued TAKE FOUR TABLETS BY MOUTH ONCE A D AY 360 Apr 22, 2019 [id number] Jan 24, 2019 [facility]UE DAVIES [facility] [place] PREDNISONE 1MG TAB Discontinued TAKE FOUR TABLETS BY MOUTH ONCE A D AY 360 Dec 29, 2018 [id number] Oct 01, 2018 NASH KULKARNI V [facility] PREDNISONE 1MG TAB TAKE THREE TABLETS B Y MOUTH ONCE A DAY FOR INFLAMMATION AND IMMUNE RESPONSE. TAKE WITH FOOD OR MILK. 270 Ap r 2019 [id number] Jul 13, 2019 [facility] [place] [facility] PREDNISONE 5MG TAB Discontinued TAKE ONE TABLET BY MOUTH ONCE A DAY WITH FOOD 60 Aug 01, 2019 [id number] Sep 25, 2018 KJ POTTER [facility] [place] [facility] ROPINIROLE HCL 1MG TAB Active TAKE ONE TABLET BY MOUTH AT BED TIME 90 October 17, 2020 [id number] Nov 25, 2019 TARIQ,DANA [facility] ROPINIROLE HCL 1MG TAB Discontinued TAKE ONE TABLET BY MOUTH AT BED TIME 90 Dec 05, 2019 [id number] Sep 03, 2019 KRYSTAL DEJESUS [facility] [place] [facility] ROPINIROLE HCL 1MG TAB Discontinued TAKE ONE TABLET BY MOUTH AT BED TIME 90 Dec 13, 2018 [id number] Sep 12, 2018 [facility] [place] [facility] TAMSULOSIN HCL 0.4MG CAP Active: Susp TAKE 1 CAPSULE BY MOUTH ONCE A DAY FOR PROSTATE. TAKE AT THE SAME TIME EACH DAY WITH FOOD. 90 Sep 30 1 [id number] Dec 20, 2019 TARIQ,DANA [facility] [place] [facility] TAMSULOSIN HCL 0.4MG CAP Discontinued TAKE 1 CAPSULE BY MOUTH ONCE A DAY FOR PROSTATE. TAKE AT THE SAME TIME EACH DAY WITH FOOD. 90 Sep 12 0 [id number] Jun 24, 2019 TEOLIS [facility] [place] [facility] Problems (Conditions): All historical and current Section Date Range: From patient's date of to the date document was create d. This section includes a list of Problems (Conditions) know n to [facility] for the patient. It includes both active and inacti ve problems (conditions). The data comes from all [facility] treatment facilities. Problem Status Problem Code Date of Onset Date of Resolution Comm ent(s) Provider Source Abnormal radiologic density Active [id number] [facility] TYEKJ CHUNG [facility] [place] [facility] Allergic rhinitis Active 32948837 LADY SALAZAR [facility] [place] [facility] Anemia Active 574989102 [facility] [place] [facility] Chest pain (SNOMED CT 98997489) Active 786.50 [facility] [place] [facility] Chondrocalcinosis Active 931469134 YOU GOMEZ [facility] [place] [facility] Chronic obstructive lung disease Active 43558507 [facility] [place] [facility] Coronary artery disease Active 70757374 Angella LINDSEY Toshia [facility] [place] [facility] Cough Active 63850861 LADY SALAZAR [facility] [place] Cough (SNOMED CT 01037430) Active 786.2 KJ BARRON [facility] [place] [facility] Dysarthria (SNOMED CT 2936497) Active 784.51 M KJ WONG [facility] [place] [facility] Dyspnea (SNOMED CT 367086252) Active 786.09 KJ BARKSDALE [facility] [place] [facility] Eruption due to drug Active 99420376 Abdiaziz POTTER TORY [facility] [place] [facility] Gastroesophageal reflux disease Active 214498910 KJ POTTER [facility] [place] [facility] Hallux valgus AND bunion Active 093443684 ALEXANDRO DEISY Dangelo [facility] [place] [facility] Joint pain (SNOMED CT 56368881) Active 719.40 DEISY CONTRERAS Royce [facility] [place] [facility] Joint swelling (SNOMED CT 103328356) Active 719.00 KJ POTTER [facility] [place] [facility] Knee pain Active 13477126 ROSALIAJENNIFER Toshia [facility] [place] [facility] Muscle weakness (SNOMED CT 67471835) Active 728.87 KJ POTTER [facility] [place] [facility] Neuropathy Active 634633901 KJ POT[facility] [place] Osteoarthritis Active 715.36 GARETHDYAN MARIE W [facility] [place] [facility] Parkinson's disease Active 09121823 ETHAN POTTER [facility] [place] [facility] Peripheral Neuropathy Active 356.9 DASARAJU,P URUSHOTHAMA [facility] [place] [facility] Personal History of Exposure to Agent [place] Active V15.89 DEISY CONTRERAS Royce [facility] [place] [facility] Polyp of colon (SNOMED CT 46033239) Active 211.3 TARIQKJ SMITH [facility] [place] [facility] Restless legs Active 83890963 PATRICK WHITE [facility] [place] [facility] Rheumatoid arthritis Active 88530613 Abdiaziz POTTER [facility] [place] [facility] Screening, Malignancy Active V76.89 LISSETH TOLEDO [facility] [place] [facility] Sleep apnea Active 23335660 KJ POTTER RN [facility] [place] Synovial cyst of popliteal space (SNOMED CT 35508244) Active 727.51 TARIQKJ [facility] [place] [facility] Tobacco dependence in remission Active 718338656 KJ POTTER [facility] [place] [facility] Tobacco use Active 955471225 JENNIFER LINDSEY [facility] [place] [facility] Tremor Active 40573254 JENN[facility]ER LINDSEY [facility] [place] [facility] Unresolved Active 53675117 JENN[facility]ER [facility]SEYER [facility] [place] [facility] Unresolved Active 84751522 JENNIFER LINDSEY [facility] [place] [facility] Radiology Reports: +/- 30 days of the encounter No Data Provided for This Section Pathology Reports: +/- 30 days of the encounter No Data Provided for This Section Encounter Notes: All associated encounter notes This section contains the clinical notes associated to the Encounter. Date/Time Encounter Note(s) Provider Source Jul 02, 2019 03:57 PM PHARMACY NOTE: LOCAL TITLE: EK-PHARMACY REFILL STANDARD TITLE: PHARMACY NOTE DATE OF NOTE: JUL 02, 2019@15:57 ENTRY DATE: JUL 02, 2019@15:57:20 AUTHOR: JULIO LANG EXP COSIGNER: URGENCY: STATUS: COMPLETED EK-PHARMACY REFILL Has ADDENDA PC to vet per provider request to determine what medication he is requesting a singh shipment. He states this is for the carvedopa levadopa. He states he received the rx today but the dose has increased to 2 tabs 5 x daily and voices concern that he will run out again. He was informed that the next refill at 2 tabs 5 x daily is due to be mailed out on 07-21-19 He v/u and request that this be mailed out now so he won't run out. He was informed that this request will be forwarded to the provider. He v/u. /sofya/ JULIO LANG RN Signed: 07/02/2019 16:03 Receipt Acknowledged By: 07/03/2019 09:44 /sofya/ KJ BAIG 07/03/2019 ADDENDUM STATUS: COMPLETED Changed RX to 60 day vs 30 day. RX was filled thru [facility] from [facility] Neuro. Note sent to [facility] as well due to vet's concerns about running out. /sofya/ KJ BAIG Signed: 07/03/2019 09:45 Receipt Acknowledged By: * AWAITING SIGNATURE * DUSTIN ASHTON [facility]
--- OUTSIDE RECORDS SUMMARY | 2019-12-04 22:02 | XMS REPORT ---
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 Date/Time Encounter Type Encounter Description Reason Provider Source May 31, 2019 08:06 PM Outpatient Encounter ADMIN PAT ACTIVTIES (MASNO NCT) [facility] [place] [facility] IHE Encounter Template Text not [...] appointme nts. The data comes from all [facility]. Appointment Date/Time Appointment Type Appointment Facili ty Name Aug 06, 2019 01:00 PM [facility]ATORY [facility]ICINE [facility] October 17, 2019 09:00 AM AMBULATORY - MEDICINE [facility] October 27, 2019 09:45 AM AMBULATORY - NONE [facility] [place] [facility] Nov 20, 2019 05:00 PM AMBULATORY - MEDICINE [facility] Nov 24, 2019 11:20 AM AMBULATORY - NONE [facility] Surgical Procedures: All associated to the [...] to adverse reactions to drug (disorder) Eruption [facility] 15 [place] Jul 17, 2012 Propensity to adverse reactions to drug (disorder) Peripheral edema [facility] 15 Medications: [facility] dispensed (-15 months) and Non-VA Documented (Obtained Outside A) Section Date Range: 1) prescriptions processed by a [place] pharmacy in the last 15 m ont, [...] may be a prescription from either the [place] or other providers that was filled outside [...] FOR INHALATION ONCE 1 Nov 16, 2018 [id number] October 17, 2018 KJ POTTER [facility] ALBUTEROL SO4 90MCG/ACTUAT (CFC-F) INHL,ORAL,6.7GM Active INHALE 2 PUFFS BY ORAL INHALATION FOUR TIMES A DAY NEEDED - RINSE MOUTHPIECE FREQUENTLY TO PREVENT CLOGGING 1 Apr 24, 2020 [id number] October 18, 2019 KJ POTTER [facility] ALBUTEROL SO4 90MCG/ACTUAT (CFC-F) INHL,ORAL,6.7GM Discontin ued INHALE 2 PUFFS BY ORAL INHALATION FOUR TIMES A DAY NEEDED - RINSE MOUTHPIECE FREQUENTLY TO PREVENT CLOGGING 2 Apr 24, 2020 [id number] Apr 24, 2019 [facility] 160MCG/FORMOTEROL FUM 4.5MCG/SPRAY INHL,ORAL,10.2 GM Active INHALE 2 PUFFS BY ORAL INHALATION TWO TIMES A DAY FOR BREATHING. SHAKE WELL. RINSE MOUTH AND SPIT AFTER EACH USE. 2 Apr 24, 2020 [id number] October 17, [address] [facility] CALCIUM 500MG ([place] CARBONATE-1.25GM) TAB Active: Susp TAKE ONE TABLET BY MOUTH TWO TIMES A DAY 180 Nov 20, 2020 [id number] Jan 09, 2020 KJ POTTER [facility] CALCIUM 500MG ([place] CARBONATE-1.25GM) TAB Discontinued TAKE ONE TABLET BY MOUTH TWO TIMES A DAY 180 Jan 08, 2020 [id number] October 21, 2019 KJ POTTER [facility] [place] CALCIUM 500MG ([place] CARBONATE-1.25GM) TAB Discontinued TAKE ONE TABLET BY MOUTH TWO TIMES A DAY 180 Dec 29, 2018 [id number] Oct 01, 2018 [facility] CARBIDOPA 25MG/LEVODOPA 100MG TAB Active TAKE 2 TABLETS BY MOUTH FOUR TIMES A DAY FOR PARKINSON'S DISEASE. DO NOT TAKE WITH FOOD. 240 Nov 24, 2020 [id number] Nov 27, 2019 [facility] [place] [facility] CARBIDOPA 25MG/LEVODOPA 100MG TAB Discontinued TAKE T WO TABLETS BY MOUTH FIVE TIMES DAILY FOR PARKINSON'S DISEASE. DO NOT TAKE WITH FOOD. 600 Jul 02, 2020 [id number] Nov 19, 2019 [facility] CARBIDOPA 25MG/LEVODOPA 100MG TAB Discontinued TAKE 2 TABLETS BY MOUTH FIVE TIMES DAILY FOR PARKINSON'S DISEASE. DO NOT TAKE WITH FOOD. 300 Jun 30, 2020 [id number] Jul 01, 2019 [facility] CARBIDOPA 25MG/LEVODOPA 100MG TAB Discontinued TAKE 2 TABLETS BY MOUTH FOUR TIMES A DAY FOR PARKINSON'S DISEASE. DO NOT TAKE WITH FOOD. 240 Jun 24, 2020 [id number] Jun 26, 2019 [facility] CARBIDOPA 25MG/LEVODOPA 100MG TAB Discontinued TAKE 2 TABLETS BY MOUTH FOUR TIMES A DAY FOR PARKINSON'S DISEASE. DO NOT TAKE WITH FOOD. 240 Dec 25, 2019 [id number] May 15, 2019 [facility] CARBIDOPA 25MG/LEVODOPA 100MG TAB Discontinued TAKE 2 TABLETS BY MOUTH FOUR TIMES A DAY FOR PARKINSON'S DISEASE. DO NOT TAKE WITH FOOD. 240 Jun 07, 2019 [id number] Nov 18, 2018 ALLEGRA HOWE [facility] CHOLECALCIFEROL 25MCG (1,000UNIT) TAB Active: Susp TA KE TWO TABLETS BY MOUTH ONCE A DAY FOR VITAMIN D DEFICIENCY 200 Nov 20, 2020 [id number] Dec 172019 [facility] CHOLECALCIFEROL 25MCG (1,000UNIT) TAB Discontinued TA KE TWO TABLETS BY MOUTH ONCE A DAY FOR VITAMIN D DEFICIENCY 200 Dec 25, 2019 [id number] October [facility] [place] [facility] CHOLECALCIFEROL 25MCG (1,000UNIT) TAB Discontinued TA KE TWO TABLETS BY MOUTH ONCE A DAY FOR VITAMIN D DEFICIENCY 200 Oct 10, 2018 [id number] Aug 172018 [facility] CLOPIDOGREL BISULFATE 75MG TAB Active: Susp TAKE ONE TABLET BY MOUTH ONCE A DAY TO PREVENT BLOOD CLOTS 90 Apr 24, 2020 [id number] Dec 19, 2019 [facility] CLOPIDOGREL BISULFATE 75MG TAB Discontinued TAKE ONE TABLET BY MOUTH ONCE A DAY TO PREVENT BLOOD CLOTS 90 Jun 01, 2019 [id number] Mar 13, 2019 [facility] [place] DIPHENHYDRAMINE HCL 25MG CAP Non-VA TAKE 1 CAPSULE BY MOUTH EVERY 6 HOURS NEEDED Non-VA Documented by: KJ POTTER nted at: [facility] FLUDROCORTISONE ACETATE 0.1MG TAB Active TAKE ONE TABLET BY M OUTH ONCE A DAY 90 Nov 19, 2020 [id number] Nov 20, 2019 [facility] [place] [facility] FOLIC ACID 1MG TAB Non- [facility] TAKE ONE TABLET BY MOUTH ONCE A DAY N on-VA Documented by: KJ POTTER nted at: [facility] GABAPENTIN 300MG CAP Active TAKE 1 CAPSULE BY M OUTH 5 TIMES A DAY FOR PAIN AND TREMORS. 300 October 17, 2020 [id number] October 18, 2019 [facility] GABAPENTIN 300MG CAP Discontinued TAKE ONE CAPSULE BY MOUTH FOUR TIMES A DAY FOR PAIN AND TREMORS. 240 Jan 08, 2020 [id number] Oct 14, 2019 [facility] [place] [facility] GABAPENT[facility] 300MG CAP Discontinued TAKE ONE CAPSULE BY MOUTH FOUR TIMES A DAY FOR PAIN AND TREMORS. 240 Mar 08, 2019 [id number] Jan 07, 2019 [facility] [place] [facility] HYDROCODONE 10MG/ACETAMINOPHEN 325MG TAB Active TAKE ONE TABLET (10/325MG) BY MOUTH THREE TIMES A DAY NEEDED FOR PAIN CAUTION: DO NOT EXCEED 4000MG/DAY TOTAL OF ACETAMINOPHEN (APAP) FROM ALL MEDS 90 Dec 20, 2019 [id number] Nov 21, 2019 [facility] HYDROCODONE 10MG/ACETAMINOPHEN 325MG TAB Discontinued TAKE ONE TABLET (10/325MG) BY MOUTH THREE TIMES A DAY NEEDED FOR PAIN CAUTION: DO NOT EXCEED 4000MG/DAY TOTAL OF ACETAMINOPHEN (APAP) FROM ALL MEDS 90 Sep 17, 020 [id number] Sep 04, 2019 [facility] [place] [facility] HYDROCODONE 10MG/ACETAMINOPHEN 325MG TAB Discontinued TAKE ONE TABLET BY MOUTH THREE TIMES A DAY NEEDED FOR PAIN CAUTION: DO NOT EXCEED 4000MG/DAY TOTAL OF ACETAMINOPHEN (APAP) FROM ALL MEDS 90 Jul 26, 2019 [id number] Jun 26, 2019 [facility] HYDROC[facility] 10MG/ACETAMINOPHEN 325MG TAB Discontinued TAKE ONE TABLET BY MOUTH THREE TIMES A DAY NEEDED FOR PAIN CAUTION: DO NOT EXCEED 4000MG/DAY TOTAL OF ACETAMINOPHEN (APAP) FROM ALL MEDS 90 Jun 27, 2019 [id number] May 29, 2019 [facility] [place] [facility] HYDROCODONE 10MG/ACETAMINOPHEN 325MG TAB Discontinued TAKE ONE TABLET BY MOUTH THREE TIMES A DAY NEEDED FOR PAIN CAUTION: DO NOT EXCEED 4000MG/DAY TOTAL OF ACETAMINOPHEN (APAP) FROM ALL MEDS 90 May 08, 2019 [id number] Apr 08, 2019 [facility] HYDROCODONE 10MG/ACETAMINOPHEN 325MG TAB Discontinued TAKE ONE TABLET BY MOUTH THREE TIMES A DAY NEEDED FOR PAIN CAUTION: DO NOT EXCEED 4000MG/DAY TOTAL OF ACETAMINOPHEN (APAP) FROM ALL MEDS 90 Mar 28, 2019 [id number] Feb 26, 2019 [facility] [place] [facility] HYDROCODONE 10MG/ACETAMINOPHEN 325MG TAB Discontinued TAKE ONE TABLET BY MOUTH THREE TIMES A DAY NEEDED FOR PAIN CAUTION: DO NOT EXCEED 4000MG/DAY TOTAL OF ACETAMINOPHEN (APAP) FROM ALL MEDS 90 Feb 06, 2019 [id number] Jan 07, 2019 [facility] [place] [facility] HYDROCODONE 10MG/ACETAMINOPHEN 325MG TAB Discontinued TAKE ONE TABLET BY MOUTH THREE TIMES A DAY NEEDED FOR PAIN CAUTION: DO NOT EXCEED 4000MG/DAY TOTAL OF ACETAMINOPHEN (APAP) FROM ALL MEDS 90 Dec 05, 2018 [id number] November 05, 2018 [facility] [place] [facility] HYDROCODONE 10MG/ACETAMINOPHEN 325MG TAB Discontinued TAKE ONE TABLET BY MOUTH THREE TIMES A DAY NEEDED FOR PAIN CAUTION: DO NOT EXCEED 4000MG/DAY TOTAL OF ACETAMINOPHEN (APAP) FROM ALL MEDS 90 October 25, 2018 [id number] Sep 25, 2018 [facility] [place] [facility] HYDROCODONE 10MG/ACETAMINOPHEN 325MG TAB TAKE ONE TABLET (10/325MG) BY MOUTH THREE TIMES A DAY NEEDED FOR PAIN CAUTION: DO NOT EXCEED 4000MG/DAY TOTAL OF ACETAMINOPHEN (APAP) FROM ALL MEDS 90 November 16, 2019 [id number] October 18, 2019 [facility] METHOTREXATE NA 2.5MG TAB Active TAKE SEVEN TABLETS BY MOUTH EVERY WEEK 90 October 17, 2020 [id number] November 04, 2019 [facility] METHOTREXATE NA 2.5MG TAB Discontinued TAKE SEVEN TABLETS BY MOUTH EVERY WEEK 90 May 09, 2020 [id number] Aug 16, [address] [facility] METHOTREXATE NA 2.5MG TAB Discontinued TAKE SEVEN TABLETS BY MOUTH EVERY WEEK 90 Aug 04, 2019 [id number] Feb 22, 2019 YOU GOMEZ [facility] [place] [facility] NORTRIPTYLINE HCL 10MG CAP Active TAKE 2 CAPSULES BY MO UTH AT BEDTIME NEEDED 120 Apr 02, 2020 [id number] Nov 20, 2019 [facility] [place] [facility] NORTRIPTYLINE HCL 10MG CAP Discontinued TAKE 2 CAPSUL ES BY MOUTH AT BEDTIME NEEDED 120 Mar 20, 2019 [id number] Jan 23, 2019 [facility] OMEPRAZOLE 20MG CAP,EC Active TAKE 1 CAPSULE BY MOUTH EVERY MORNING TO LOWER STOMACH ACID. TAKE 30 MINUTES PRIOR TO FOOD. 90 October 17, 2020 [id number] October 21, 2019 [facility] OMEPRAZOLE 20MG CAP,EC Discontinued TAKE 1 CAPSULE BY MOUTH EVERY MORNING TO LOWER STOMACH ACID. TAKE 30 MINUTES PRIOR TO FOOD. 90 Oct 02, 2019 [id number] Aug 02, 2019 [facility] [place] [facility] PREDNISONE 1MG TAB Discontinued TAKE THREE TABLETS B Y MOUTH ONCE A DAY FOR INFLAMMATION AND IMMUNE RESPONSE. TAKE WITH FOOD OR MILK. 270 Fe 2019 [id number] Apr 24, 2019 [facility] PREDNISONE 1MG TAB Discontinued TAKE FOUR TABLETS BY MOUTH ONCE A D AY 360 Apr 22, 2019 [id number] Jan 24, 2019 [facility] [place] [facility] PREDNISONE 1MG TAB Discontinued TAKE FOUR TABLETS BY MOUTH ONCE A D AY 360 Dec 29, 2018 [id number] Oct 01, 2018 [facility] PREDNISONE 1MG TAB TAKE THREE TABLETS B Y MOUTH ONCE A DAY FOR INFLAMMATION AND IMMUNE RESPONSE. TAKE WITH FOOD OR MILK. 270 Ap r 2019 [id number] Jul 13, 2019 [facility] PREDNISONE 5MG TAB Discontinued TAKE ONE TABLET BY MOUTH ONCE A DAY WITH FOOD 60 Aug 01, 2019 [id number] Sep 25, 2018 [facility] [place] [facility] ROPINIROLE HCL 1MG TAB Active TAKE ONE TABLET BY MOUTH AT BED TIME 90 October 17, 2020 [id number] Nov 25, 2019 [facility] ROPINIROLE HCL 1MG TAB Discontinued TAKE ONE TABLET BY MOUTH AT BED TIME 90 Dec 05, 2019 [id number] Sep 03, 2019 KRYSTAL DEJESUS [facility] [place] [facility] ROPINIROLE HCL 1MG TAB Discontinued TAKE ONE TABLET BY MOUTH AT BED TIME 90 Dec 13, 2018 [id number] Sep 12, 2018 [facility] [place] [facility] TAMSULOSIN HCL 0.4MG CAP Active: Susp TAKE 1 CAPSULE BY MOUTH ONCE A DAY FOR PROSTATE. TAKE AT THE SAME TIME EACH DAY WITH FOOD. 90 Sep 30 1 [id number] Dec 20, 2019 KJ POTTER [facility] [place] [facility] TAMSULOSIN HCL 0.4MG CAP Discontinued TAKE 1 CAPSULE BY MOUTH ONCE A DAY FOR PROSTATE. TAKE AT THE SAME TIME EACH DAY WITH FOOD. 90 Sep 12 0 [id number] Jun 24, 2019 LIS BRUCE [facility] [facility] Problems (Conditions): All historical [...] ent(s) Provider Source Abnormal radiologic density Active [id number] KJ HWANG [facility] [place] [facility] Allergic rhinitis Active 10387232 LADY SALAZAR [facility] [facility] Anemia Active 299406993 KJ POTTER [facility] Chest pain (SNOMED CT 46778108) Active 786.50 [facility] Chondrocalcinosis Active 908981051 JASONYOU [facility] [facility] Chronic obstructive lung disease Active 87930337 [facility] Coronary artery disease Active 16246522 Angella LINDSEY Toshia [facility] Cough Active 20231534 LADY SALAZAR [place] Angella S [facility] [place] [facility] Cough (SNOMED CT 65519720) Active 786.2 KJ BARRON [facility] [place] [facility] Dysarthria (SNOMED CT 8283612) Active 784.51 M CKENNEKJ Ortega [facility] [place] [facility] Dyspnea (SNOMED CT 523505203) Active 786.09 KJ BARKSDALE [facility] [place] [facility] Eruption due to drug Active 75469954 TARIQ,D TORY [facility] [place] [facility] Gastroesophageal reflux disease Active 523485240 KJ POTTER [facility] [facility] Hallux valgus AND bunion Active 815048548 HORSC H,DEISY Royce [facility] [facility] Joint pain (SNOMED CT 17620996) Active 719.40 DEISY CONTRERAS [facility] [place] [facility] Joint swelling (SNOMED CT 408317503) Active 719.00 TARIQKJ SMITH [facility] [place] [facility] Knee pain Active 66256456 JENNIFER LINDSEY [facility] [place] [facility] Muscle weakness (SNOMED CT 84306516) Active 728.87 TARIQKJ SMITH [facility] [place] [facility] Neuropathy Active 007936087 KJ POTTER RN [facility] [place] [facility] Osteoarthritis Active 715.36 DYAN SERVIN [facility] [place] [facility] Parkinson's disease Active 02233512 TARIQETHAN [facility] [place] [facility] Peripheral Neuropathy Active 356.9 Flaquita RAHMAN URKURT Jenna [facility] [place] [facility] Personal History of Exposure to Agent [place] Active V15.89 DEISY CONTRERAS [facility] [place] [facility] Polyp of colon (SNOMED CT 09628028) Active 211.3 TARIQKJ SMITH [facility] [place] [facility] Restless legs Active 91220930 PATRICK WHITE [facility] [place] [facility] Rheumatoid arthritis Active 85279098 Abdiaziz POTTER [facility] [place] [facility] Screening, Malignancy Active V76.89 LISSETH TOLEDO [facility] [place] [facility] Sleep apnea Active 25983274 KJ POTTER RN [facility] [place] [facility] Synovial cyst of popliteal space (SNOMED CT 74783910) Active 727.51 TARIQKJ [facility] [place] [facility] Tobacco dependence in remission Active 551509169 KJ POTTER [facility] [place] [facility] Tobacco use Active 386853540 JENNIFER LINDSEY [facility] [place] [facility] Tremor Active 79869758 JENNIFER LINDSEY K S [facility] [place] [facility] Unresolved Active 48247842 JENNIFER LINDSEY N [facility] [place] [facility] Unresolved Active 16645865 JENNIFER LINDSEY [facility] [place] [facility] Radiology Reports: +/- 30 days of the encounter No Data Provided for This Section Pathology Reports: +/- 30 days of the encounter No Data Provided for This Section Encounter Notes: All associated encounter notes This section contains the clinical notes associated to the Encounter. Date/Time Encounter Note(s) Provider Source May 31, 2019 08:06 PM ACCOUNTING OF DISCLOSURES NO TE: LOCAL TITLE: STATE PRESCRIPTION DRUG MONITORING PROGRAM-EK STANDARD TITLE: ACCOUNTING OF DISCLOSURES NOTE DATE OF NOTE: MAY 31, 2019@20:06 ENTRY DATE: MAY 31, 2019@20:06:36 AUTHOR: KJ POTTER EXP COSIGNER: URGENCY: STATUS: COMPLETED STATE PRESCRIPTION DRUG MONITORING PROGRAM (SPDMP): Purpose: [place] and the [facility] are exchanging information so that the VA provider can manage your health care. The State may use this information to monitor controlled substance prescriptions and for law enforcement purposes. I reviewed patient's State Prescription Drug Monitoring Program (SPDMP) report prior to prescribing Schedule II or Schedule III medications. Report request number State: [place] FINDINGS: Significant Non-VA prescriptions found 11/02/18 oxycodone 5/325 #28, 7 days Alexys Lind MD, [place], [place] filled at [facility] // KJ POTTER [facility] Signed: 05/31/2019 20:07 KJ POTTER [facility]
--- OUTSIDE RECORDS SUMMARY | 2019-12-04 22:02 | XMS REPORT | Encounter Summary ---
Author Author [facility] CARLOS sweeney Organization Department of [facility] Address [address] [place] [id number] Phone Unavailable Care Team Providers [employer] Electrician Name Role Phone TARIQKOURTNEY PCP Unavailable [...] PLAN G MEDICARE SUPPLEMENT Dec PLAN G [id number] [phone] ROSALINACARLOS PATIENT MEDICARE (WNR) MEDICARE (M) PART A Dec 16, 2014 PART A [id number] ROSALINACARLOS PATIENT MEDICARE (WNR) MEDICARE (M) PART B Dec 16, 2014 PART B [id number] [phone] CARLOS ROMANO PATIENT MEDICO DENTAL INSURANCE DENTAL VISIONHEARING Dec 16, 2014 DENTAL VISIONHEAR [id number] [phone] CARLOS ROMANO PATIENT Selected Encounter This section includes the information on record at [place] for the Encounter. Date/Time Encounter Type Encounter Description Reason Provider Source May 28, 2019 04:09 PM Outpatient Encounter PRIMARY CARE/MEDICINE JENNIFER LINDSEY [facility], [facility] 15 IHE Encounter Template Text not used by [place] Assessments - Encounter Diagnoses No Data Provided for This Section Plan of Treatment: Future Appointments (+ 6 months) and Future Tests (+/- 45 day s) The Plan of Treatment section includes future care activities for the patient fr om all [place] treatment facilities. This section includes future appointments and fu ture orders which are active, pending or scheduled. Future Appointments This section includes appointments that were scheduled t o occur 6 months from the date of the Encounter, up to a maximum of 20 appointme nts. The data comes from all [place] treatment [facility]. Appointment Date/Time Appointment Type Appointment Facili ty Name May 29, 2019 09:00 AM AMBULATORY - NONE [facility] [place] [facility] Aug 06, 2019 01:00 PM [facility]BULATORY - [facility]ICINE [facility] October 17, 2019 09:00 AM AMBULATORY - [facility] [place] October 27, 2019 09:45 AM AMBULATORY - NONE [facility] Nov 20, 2019 05:00 PM AMBULATORY - MEDIC[facility] [place] Nov 24, 2019 11:20 AM AMBULATORY - NONE [facility] Surgical Procedures: All associated [...] Adverse Reactions (ADR s) on record with [place] for the patient. The data comes from a ll [place] treatment facilities. It does not list Allergies/ADRs that were removed or entered in error. Some allergies/ADRs may be reported in t he Immunization section. Allergen Event Date Event Type Reaction(s) Severity Source PANTOPRAZOLE Oct 01, 2018 Propensity to adverse reactions to drug (disorder) Eruption [facility] 15 PENICILLIN Jul 17, 2012 Propensity to adverse reactions to drug (disorder) Peripheral edema [facility] 15 Medications: VA dispensed (-15 months) and Non-VA Documented (Obtained Outside V A) Section Date Range: 1) prescriptions processed by a [place] pharmacy in the last 15 m [facility], and 2) all medications recorded in the [place] medical record as "non-VA medic ations". Pharmacy terms refer to VA pharmacy's work on prescriptions. VA patient s are advised to take their medications as instructed by their health care team. The data comes from all [place] treatment facilities. Glossary of Pharmacy Terms:Active = A prescription that can be filled at the local [place] pharmacy.Active: On Hold = An active prescription that will not be filled until pharmacy resolves the issue.Active: Susp = An active prescription that is not scheduled to be filled yet.Clinic Order = A medication received during a visit to a [place] clinic or emergency department (currently not available).Discontinued [...] may be a prescription from either the [place] or other providers that was filled outside the [place]. Or, it may be an over the [...] FOR INHALATION ONCE 1 Nov 16, 2018 [id number] October 17, 2018 KOURTNEY POTTER [facility] ALBUTEROL SO4 90MCG/ACTUAT (CFC-F) INHL,ORAL,6.7GM Active INHALE 2 PUFFS BY ORAL INHALATION FOUR TIMES A DAY NEEDED - RINSE MOUTHPIECE FREQUENTLY TO PREVENT CLOGGING 1 Apr 24, 2020 [id number] October 18, 2019 KOURTNEY POTTER [facility] ALBUTEROL SO4 90MCG/ACTUAT (CFC-F) INHL,ORAL,6.7GM Discontin ued INHALE 2 PUFFS BY ORAL INHALATION FOUR TIMES A DAY NEEDED - RINSE MOUTHPIECE FREQUENTLY TO PREVENT CLOGGING 2 Apr 24, 2020 [id number] Apr 24, 2019 KOURTNEY POTTER [facility] BUDESONIDE 160MCG/FORMOTEROL FUM 4.5MCG/SPRAY INHL,ORAL,10.2 GM Active INHALE 2 PUFFS BY ORAL INHALATION TWO TIMES A DAY FOR BREATHING. SHAKE WELL. RINSE MOUTH AND SPIT AFTER EACH USE. 2 Apr 24, 2020 [id number] October 17, 2019 KOURTNEY JOSHI [facility] CALCIUM 500MG (CA CARBONATE-1.25GM) TAB Active: Susp TAKE ONE TABLET BY MOUTH TWO TIMES A DAY 180 Nov 20, 2020 [id number] Jan 09, 2020 TARIQKOURTNEY SMITH [facility] CALCIUM 500MG (CA CARBONATE-1.25GM) TAB Discontinued TAKE ONE TABLET BY MOUTH TWO TIMES A DAY 180 Jan 08, 2020 [id number] October 21, 2019 TARIQKOURTNEY SM[facility] [place] CALCIUM 500MG (CA CARBONATE-1.25GM) TAB Discontinued TAKE ONE TABLET BY MOUTH TWO TIMES A DAY 180 Dec 29, 2018 [id number] Oct 01, 2018 [facility] CARBIDOPA 25MG/LEVODOPA 100MG TAB Active TAKE 2 TABLETS BY MOUTH FOUR TIMES A DAY FOR PARKINSON'S DISEASE. DO NOT TAKE WITH FOOD. 240 Nov 24, 2020 [id number] Nov 27, 2019 [facility] [place] [facility] CARBIDOPA 25MG/LEVODOPA 100MG TAB Discontinued TAKE T WO TABLETS BY MOUTH FIVE TIMES DAILY FOR PARKINSON'S DISEASE. DO NOT TAKE WITH FOOD. 600 Jul 02, 2020 [id number] Nov 19, 2019 [facility] [place] [facility] [place] CARBIDOPA 25MG/LEVODOPA 100MG TAB Discontinued TAKE 2 TABLETS BY MOUTH FIVE TIMES DAILY FOR PARKINSON'S DISEASE. DO NOT TAKE WITH FOOD. 300 Jun 30, 2020 [id number] Jul 01, 2019 [facility] [place] [facility] CARBIDOPA 25MG/LEVODOPA 100MG TAB Discontinued TAKE 2 TABLETS BY MOUTH FOUR TIMES A DAY FOR PARKINSON'S DISEASE. DO NOT TAKE WITH FOOD. 240 Jun 24, 2020 [id number] Jun 26, 2019 [facility] [place] [facility] CARBIDOPA 25MG/LEVODOPA 100MG TAB Discontinued TAKE 2 TABLETS BY MOUTH FOUR TIMES A DAY FOR PARKINSON'S DISEASE. DO NOT TAKE WITH FOOD. 240 Dec 25, 2019 [id number] May 15, 2019 [facility] [place] [facility] CARBIDOPA 25MG/LEVODOPA 100MG TAB Discontinued TAKE 2 TABLETS BY MOUTH FOUR TIMES A DAY FOR PARKINSON'S DISEASE. DO NOT TAKE WITH FOOD. 240 Jun 07, 2019 [id number] Nov 18, [address] [facility] [place] [facility] CHOLECALCIFEROL 25MCG (1,000UNIT) TAB Active: Susp TA KE TWO TABLETS BY MOUTH ONCE A DAY FOR VITAMIN D DEFICIENCY 200 Nov 20, 2020 [id number] Dec 172019 [facility] CHOLECALCIFEROL 25MCG (1,000UNIT) TAB Discontinued TA KE TWO TABLETS BY MOUTH ONCE A DAY FOR VITAMIN D DEFICIENCY 200 Dec 25, 2019 [id number] October [facility] [place] [facility] CHOLECALCIFEROL 25MCG (1,000UNIT) TAB Discontinued TA KE TWO TABLETS BY MOUTH ONCE A DAY FOR VITAMIN D DEFICIENCY 200 Oct 10, 2018 [id number] Aug 172018 [facility] CLOPIDOGREL BISULFATE 75MG TAB Active: Susp TAKE ONE TABLET BY MOUTH ONCE A DAY TO PREVENT BLOOD CLOTS 90 Apr 24, 2020 [id number] Dec 19, 2019 [facility] CLOPIDOGREL BISULFATE 75MG TAB Discontinued TAKE ONE TABLET BY MOUTH ONCE A DAY TO PREVENT BLOOD CLOTS 90 Jun 01, 2019 [id number] Mar 13, 2019 [facility] [place] [facility] DIPHENHYDRAMINE HCL 25MG CAP Non-VA TAKE 1 CAPSULE BY MOUTH EVERY 6 HOURS NEEDED Non-VA Documented by: KOURTNEY POTTER nted at: [facility] FLUDROCORTISONE ACETATE 0.1MG TAB Active TAKE ONE TABLET BY M OUTH ONCE A DAY 90 Nov 19, 2020 [id number] Nov 20, 2019 [facility] [place] FOLIC ACID 1MG TAB Non- VA TAKE ONE TABLET BY MOUTH ONCE A DAY N on-VA Documented by: KOURTNEY POTTER nted at: [facility] GABAPENTIN 300MG CAP Active TAKE 1 CAPSULE BY M OUTH 5 TIMES A DAY FOR PAIN AND TREMORS. 300 October 17, 2020 [id number] October 18, 2019 [facility] GABAPENTIN 300MG CAP Discontinued TAKE ONE CAPSULE BY MOUTH FOUR TIMES A DAY FOR PAIN AND TREMORS. 240 Jan 08, 2020 [id number] Oct 14, 2019 [facility] GABAPENTIN 300MG CAP Discontinued TAKE ONE CAPSULE BY MOUTH FOUR TIMES A DAY FOR PAIN AND TREMORS. 240 Mar 08, 2019 [id number] Jan 07, 2019 [facility] [place] HYDROCODONE 10MG/ACETAMINOPHEN 325MG TAB Active TAKE ONE TABLET (10/325MG) BY MOUTH THREE TIMES A DAY NEEDED FOR PAIN CAUTION: DO NOT EXCEED 4000MG/DAY TOTAL OF ACETAMINOPHEN (APAP) FROM ALL MEDS 90 Dec 20, 2019 [id number] Nov 21, 2019 [facility] HYDROCODONE 10MG/ACETAMINOPHEN 325MG TAB Discontinued TAKE ONE TABLET (10/325MG) BY MOUTH THREE TIMES A DAY NEEDED FOR PAIN CAUTION: DO NOT EXCEED 4000MG/DAY TOTAL OF ACETAMINOPHEN (APAP) FROM ALL MEDS 90 Oct 02, 020 [id number] Sep 04, 2019 [facility] [place] HYDROCODONE 10MG/ACETAMINOPHEN 325MG TAB Discontinued TAKE ONE TABLET BY MOUTH THREE TIMES A DAY NEEDED FOR PAIN CAUTION: DO NOT EXCEED 4000MG/DAY TOTAL OF ACETAMINOPHEN (APAP) FROM ALL MEDS 90 Jul 26, 2019 [id number] Jun 26, 2019 [facility] [place] HYDROCODONE 10MG/ACETAMINOPHEN 325MG TAB Discontinued TAKE ONE TABLET BY MOUTH THREE TIMES A DAY NEEDED FOR PAIN CAUTION: DO NOT EXCEED 4000MG/DAY TOTAL OF ACETAMINOPHEN (APAP) FROM ALL MEDS 90 Jun 27, 2019 [id number] May 29, 2019 [facility] [place] [facility] HYDROCODONE 10MG/ACETAMINOPHEN 325MG TAB Discontinued TAKE ONE TABLET BY MOUTH THREE TIMES A DAY NEEDED FOR PAIN CAUTION: DO NOT EXCEED 4000MG/DAY TOTAL OF ACETAMINOPHEN (APAP) FROM ALL MEDS 90 May 08, 2019 [id number] Apr 08, 2019 [facility] [place] HYDROCODONE 10MG/ACETAMINOPHEN 325MG TAB Discontinued TAKE ONE TABLET BY MOUTH THREE TIMES A DAY NEEDED FOR PAIN CAUTION: DO NOT EXCEED 4000MG/DAY TOTAL OF ACETAMINOPHEN (APAP) FROM ALL MEDS 90 Mar 28, 2019 [id number] Feb 26, 2019 [facility] [place] HYDROCODONE 10MG/ACETAMINOPHEN 325MG TAB Discontinued TAKE ONE TABLET BY MOUTH THREE TIMES A DAY NEEDED FOR PAIN CAUTION: DO NOT EXCEED 4000MG/DAY TOTAL OF ACETAMINOPHEN (APAP) FROM ALL MEDS 90 Feb 06, 2019 [id number] Jan 07, 2019 [facility] [place] HYDROCODONE 10MG/ACETAMINOPHEN 325MG TAB Discontinued TAKE ONE TABLET BY MOUTH THREE TIMES A DAY NEEDED FOR PAIN CAUTION: DO NOT EXCEED 4000MG/DAY TOTAL OF ACETAMINOPHEN (APAP) FROM ALL MEDS 90 Dec 05, 2018 [id number] November 05, 2018 [facility] [place] HYDROCODONE 10MG/ACETAMINOPHEN 325MG TAB Discontinued TAKE ONE TABLET BY MOUTH THREE TIMES A DAY NEEDED FOR PAIN CAUTION: DO NOT EXCEED 4000MG/DAY TOTAL OF ACETAMINOPHEN (APAP) FROM ALL MEDS 90 October 25, 2018 [id number] Sep 25, 2018 [facility] [place] HYDROCODONE 10MG/ACETAMINOPHEN 325MG TAB TAKE ONE TABLET (10/325MG) BY MOUTH THREE TIMES A DAY NEEDED FOR PAIN CAUTION: DO NOT EXCEED 4000MG/DAY TOTAL OF ACETAMINOPHEN (APAP) FROM ALL MEDS 90 November 16, 2019 [id number] October 18, 2019 [facility] METHOTREXATE NA 2.5MG TAB Active TAKE SEVEN TABLETS BY MOUTH EVERY WEEK 90 October 17, 2020 [id number] November 04, 2019 [facility] METHOTREXATE NA 2.5MG TAB Discontinued TAKE SEVEN TABLETS BY MOUTH EVERY WEEK 90 May 09, 2020 [id number] Aug 16, 2019 NASH KULKARNI [facility] METHOTREXATE NA 2.5MG TAB Discontinued TAKE SEVEN TABLETS BY MOUTH EVERY WEEK 90 Aug 04, 2019 [id number] Feb 22, [address] [facility] [place] [facility] NORTRIPTYLINE HCL 10MG CAP Active TAKE 2 CAPSULES BY MO UTH AT BEDTIME NEEDED 120 Apr 02, 2020 [id number] Nov 20, 2019 [facility] [place] NORTRIPTYLINE HCL 10MG CAP Discontinued TAKE 2 CAPSUL ES BY MOUTH AT BEDTIME NEEDED 120 Mar 20, 2019 [id number] Jan 23, 2019 [facility] OMEPRAZOLE 20MG CAP,EC Active TAKE 1 CAPSULE BY MOUTH EVERY MORNING TO LOWER STOMACH ACID. TAKE 30 MINUTES PRIOR TO FOOD. 90 October 17, 2020 [id number] October 21, 2019 [facility] OMEPRAZOLE 20MG CAP,EC Discontinued TAKE 1 CAPSULE BY MOUTH EVERY MORNING TO LOWER STOMACH ACID. TAKE 30 MINUTES PRIOR TO FOOD. 90 Oct 02, 2019 [id number] Aug 02, 2019 [facility] [place] PREDNISONE 1MG TAB Discontinued TAKE THREE TABLETS B Y MOUTH ONCE A DAY FOR INFLAMMATION AND IMMUNE RESPONSE. TAKE WITH FOOD OR MILK. 270 Fe 2019 [id number] Apr 24, 2019 [facility] PREDNISONE 1MG TAB Discontinued TAKE FOUR TABLETS BY MOUTH ONCE A D AY 360 Apr 22, 2019 [id number] Jan 24, 2019 [facility] [place] PREDNISONE 1MG TAB Discontinued TAKE FOUR TABLETS BY MOUTH ONCE A D AY 360 Dec 29, 2018 [id number] Oct 01, 2018 [facility]ULKARNI [facility] PREDNISONE 1MG TAB TAKE THREE TABLETS B Y MOUTH ONCE A DAY FOR INFLAMMATION AND IMMUNE RESPONSE. TAKE WITH FOOD OR MILK. 270 Ap r 2019 [id number] Jul 13, 2019 [facility] [place] PREDNISONE 5MG TAB Discontinued TAKE ONE TABLET BY MOUTH ONCE A DAY WITH FOOD 60 Aug 01, 2019 [id number] Sep 25, 2018 [facility] [place] ROPINIROLE HCL 1MG TAB Active TAKE ONE TABLET BY MOUTH AT BED TIME 90 October 17, 2020 [id number] Nov 25, 2019 [facility] ROPINIROLE HCL 1MG TAB Discontinued TAKE ONE TABLET BY MOUTH AT BED TIME 90 Dec 05, 2019 [id number] Sep 03, [address] [place] ROPINIROLE HCL 1MG TAB Discontinued TAKE ONE TABLET BY MOUTH AT BED TIME 90 Dec 13, 2018 [id number] Sep 12, 2018 [facility] [place] TAMSULOSIN HCL 0.4MG CAP Active: Susp TAKE 1 CAPSULE BY MOUTH ONCE A DAY FOR PROSTATE. TAKE AT THE SAME TIME EACH DAY WITH FOOD. 90 Sep 30 1 [id number] Dec 20, [address] [facility] [place] TAMSULOSIN HCL 0.4MG CAP Discontinued TAKE 1 CAPSULE BY MOUTH ONCE A DAY FOR PROSTATE. TAKE AT THE SAME TIME EACH DAY WITH FOOD. 90 Sep 12 0 [id number] Jun 24, [address] [facility] [place] Problems (Conditions): All historical and current Section Date Range: From patient's date of to the date document was create d. This section includes a list of Problems (Conditions) know n to [facility] for the patient. It includes both active and inacti ve problems (conditions). The data comes from all [place] treatment facilities. Problem Status Problem Code Date of Onset Date of Resolution Comm ent(s) Provider Source Abnormal radiologic density Active [id number] KOURTNEY HWANG [facility] [place] [facility] Allergic rhinitis Active 66153559 SALAZARLADY [facility] [place] Anemia Active [id number] KOURTNEY POTTER [facility] [place] [facility] Chest pain (SNOMED CT 99534967) Active 786.[address] [facility] [place] [facility] Chondrocalcinosis Active [id number] JASONYOU SOLIS [facility] [place] [facility] Chronic obstructive lung disease Active 68923241 [facility] [place] [facility] Coronary artery disease Active 13184778 Angella LINDSEY [facility] [place] [facility] Cough Active 75423453 LADY SALAZAR REDIG Angella S [facility] [place] Cough (SNOMED CT 72753450) Active 786.[address] [facility] [place] [facility] Dysarthria (SNOMED CT 7336231) Active 784.51 M CORRINEENNEKOURTNEY Ortega [facility] [place] [facility] Dyspnea (SNOMED CT 721622717) Active 786.[address] [facility] [place] [facility] Eruption due to drug Active 39434193 Abdiaziz POTTER [facility] [place] [facility] Gastroesophageal reflux disease Active 944958476 KOURTNEY POTTER [facility] [place] [facility] Hallux valgus AND bunion Active 060379397 DEISY GERMAIN [facility] [place] [facility] Joint pain (SNOMED CT 15757444) Active 719.[address] [facility] [place] [facility] Joint swelling (SNOMED CT 177228158) Active 719.[address] [facility] [place] [facility] Knee pain Active 28880496 JENNIFER LINDSEY [facility] [place] [facility] Muscle weakness (SNOMED CT 38209472) Active 728.[address] [facility] [place] [facility] Neuropathy Active 971678288 KOURTNEY POTTER RN [facility] [place] Osteoarthritis Active 715.[address] [facility] [place] [facility] Parkinson's disease Active 82338046 TARIQETHAN PATIÑO [facility] [place] [facility] Peripheral Neuropathy Active 356.[address] [facility] [place] [facility] Personal History of Exposure to Agent Crisp Active V15.[address] [facility] [place] [facility] Polyp of colon (SNOMED CT 91934461) Active 211.[address] [facility] [place] [facility] Restless legs Active 72935149 PATRICK WHITE TERGeo [facility] [place] Rheumatoid arthritis Active 04539877 Abdiaziz POTTER [facility] [place] [facility] Screening, Malignancy Active V76.[address] [facility] [place] [facility] Sleep apnea Active 03313088 KOURTNEY POTTER RN [facility] [place] [facility] Synovial cyst of popliteal space (SNOMED CT 30000971) Active 727.[address] [facility] [place] [facility] Tobacco dependence in remission Active 086057890 KOURTNEY POTTER [facility] [place] [facility] Tobacco use Active 657633057 JENNIFER LINDSEY [facility] [place] Tremor Active 67549833 JENNIFER LINDSEY K S [facility] [place] Unresolved Active 44738439 JENNIFER LINDSEY [facility] [place] [facility] Unresolved Active 32466629 JENNIFER LINDSEY [facility] [place] [facility] Radiology Reports: +/- 30 days of the encounter No Data Provided for This Section Pathology Reports: +/- 30 days of the encounter No Data Provided for This Section Encounter Notes: All associated encounter notes This section contains the clinical notes associated to the Encounter. Date/Time Encounter Note(s) Provider Source May 28, 2019 04:09 PM PRIMARY CARE SECURE MESSAGIN G: [facility] TITLE: EK-PRIMARY CARE SECURE MESSAGING STANDARD TITLE: PRIMARY CARE SECURE MESSAGING DATE OF NOTE: MAY 28, 2019@16:09:47 ENTRY DATE: MAY 28, 2019@15:09:47 AUTHOR: JENNIFER LINDSEY EXP COSIGNER: URGENCY: STATUS: COMPLETED ------Original Message ------ Sent: 05/28/2019 10:38 AM From: CARLOS ROMANO [facility]: [facility], Samantha Summers_Primary Care Subject: Medication Inquiry please order hydrocodone. i know last we talked that they really dont help much with the pain but its all i have so please order them. ------Original Message ------ Sent: 05/28/2019 04:09 PM From: JENNIFER LINDSEY To: CARLOS ROMANO Subject: Medication Inquiry Forwarding to Kourtney travis/ JENNIFER LINDSEY LPN Signed: 05/28/2019 15:09 Receipt Acknowledged By: * AWAITING SIGNATURE * KOURTNEY POTTER KATHY J [facility]
--- OUTSIDE RECORDS SUMMARY | 2019-12-04 22:02 | XMS REPORT | Encounter Summary ---
Author Author Department [employer] CARLOS sweeney Organization Department [facility] Address [address] [place] [address] Phone Unavailable Care Team Providers Care Resawyer Name Role Phone KJ POTTER PCP Unavailable [...] PLAN G MEDICARE SUPPLEMENT Dec PLAN G [id number] [phone] ROSALINACARLOS PATIENT MEDICARE (WNR) MEDICARE (M) PART A Dec 16, 2014 PART A [id number] [phone] ROSALINACARLOS PATIENT MEDICARE (WNR) MEDICARE (M) PART B Dec 16, 2014 PART B [id number] ROSALINACARLOS PATIENT MEDICO DENTAL INSURANCE DENTAL VISIONHEARING Dec 16, 2014 DENTAL VISIONHEAR [id number] [phone] CARLOS ROMANO PATIENT Selected Encounter This section includes the information on record at [place] for the Encounter. Date/Time Encounter Type Encounter Description Reason Provider Source Apr 24, 2019 09:30 AM OFFICE/OUTPATIENT VISIT EST PRIMARY CARE/M EDICINE ICD-10-CM I25.10 [place] heart disease of [place] coronary artery w/o ang pctrs with Provider Comments: Coronary artery disease (SCT [id number]) KJ POTTER [facility] IHE Encounter Template Text not used by [place] Assessments - Encounter Diagnoses This section includes the primary and secondary diag noses documented for the Encounter. 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 MARTIN SHULTZ [facility] Apr 24, 2019 05:47 PM SECONDARY Chronic obstructiv e pulmonary disease, unspecified MARTIN SHULTZ [facility] Apr 24, 2019 05:47 PM SECONDARY Encounter for immunization MARTIN SALGADO [facility] Apr 24, 2019 05:47 PM SECONDARY Gastro-esophageal reflux disease without esophagitis CARRINGTONMARTIN R [facility] Apr 24, 2019 05:47 PM SECONDARY Idiopathic progressive ke ropathy CARRINGTONMARTIN R [facility] Apr 24, 2019 05:47 PM SECONDARY Other nonspecific abnormal finding of lung [facility] Apr 24, 2019 05:47 PM SECONDARY Pain in unspecified knee CARRINGTONMARTIN [facility] Apr 24, 2019 05:47 PM SECONDARY Parkinson's disease CARRINGTONGIBRAN MARQUITAChad [facility] Apr 24, 2019 05:47 PM SECONDARY Restless legs syndrome [facility] Apr 24, 2019 05:47 PM SECONDARY Rheumatoid arthritis, unsp ecified CARRINGTONMARTIN [facility] Apr 24, 2019 05:47 PM SECONDARY Sleep apnea, unspecified [facility] Plan of Treatment: Future Appointments (+ 6 months) and Future Tests (+/- 45 day s) The Plan of Treatment section includes future care activities for the patient fr om all [place] treatment facilities. This section includes future appointments and fu ture orders which are active, pending or scheduled. Future Appointments This section includes appointments that were scheduled t o occur 6 months from the date of the Encounter, up to a maximum of 20 appointme nts. The data comes from all [place] treatment facilities. Appointment Date/Time Appointment Type Appointment Facili ty Name May 29, 2019 09:00 AM [facility] [place] [facility] Aug 06, 2019 01:00 PM [facility] MEDICINE [facility] October 17, 2019 09:00 AM [facility] Active, Pending, and Scheduled Orders [...] the Encounter. The data comes from all [place] treatment facilities. Test Date/Time Test Type Test Details Facility Name Apr 02, 2019 12:00 AM Laboratory - Chemistry Order COMPREHEN SIVE METABOLIC PANEL GREEN TOP TUBE PLASMA SP [facility] Apr 02, 2019 12:00 AM Laboratory - Chemistry Order CBC & DIF F 5 ML LAVENDER TOP BLOOD SP [facility] Apr 02, 2019 12:00 AM Laboratory - Chemistry Order C-REACTIV E PROTEIN SST GEL SERUM SP [facility] Apr 02, 2019 10:11 AM Laboratory - Chemistry Order ERYTHROCY TE SEDIMENTATION RATE 5 ML LAVENDER TOP BLOOD SP [facility] Surgical Procedures: All associated to the [...] Result - Unit Interpretation Reference Range Comment Apr 02, 2019 10:11 AM [facility] LIPID PROFILE(HDL,TRI G,CHOL,LDL) Specimen Type: PLASMA No comment entered. CHOLESTEROL 170 mg/dL 0-200 TRIGS 85 mg/dL 0-150 HDL-CHOLESTEROL 64 mg/dL >40 LDL (CALC) 89.0 mg/dL 0-99.9 Apr 02, 2019 10:11 AM [facility] TSH Specimen Type: SERUM No comment entered. TSH 0.94 uIU/mL 0.47-5.00 Apr 02, 2019 10:11 AM [facility] PROSTATIC SPECIFIC AN TIGEN(TOTAL) Specimen Type: SERUM No comment entered. PROSTATIC SPECIFIC ANTIGEN(TOTAL) 1.73 ng/mL 0-4 Apr 02, 2019 10:11 AM [facility] URINALYSIS Specimen Type: URINE No comment entered. URINE COLOR Yellow SPECIFIC GRAVITY 1.010 1.005-1.030 UROBILINOGEN Negative mg/dL 0.1-1.0 URINE BILIRUBIN Negative Negative URINE KETONES Negative mg/dl Negative URINE GLUCOSE Negative mg/dL Negative URINE PROTEIN Negative mg/dl Negative-Tr juliana URINE PH 8.0 5-8 APPEARANCE,URINE Clear Clear URINE BLOOD Negative Negative URINE NITRITE Negative Negative LEUKOCYTE ESTERASE Negative Negative Apr 02, 2019 10:11 AM [facility] DRUGS OF ABUSE SCREEN Specimen Type: URINE No comment entered. AMPHETAMINE NEG Negative BARBITURATES NEG Negative BENZODIAZEPINES NEG Negative CANNABINOIDS NEG Negative COCAINE NEG Negative OPIATES >1000POS Negative PHENCYCLIDINE(PCP) NEG Negative *CREATININE,DRUG SCR 45.00 mg/dL METHADONE(UDS) NEG Negative OXYCODONE (URINE) NEG Negative ALCOHOL-URINE,RANDOM (MARCO,WI,EK) NEG mg/dL <10 Apr 02, 2019 10:11 AM [facility] HEMOGLOBIN A1C Specimen Type: BLOOD No comment entered. HEMOGLOBIN A1C 5.8 % 4.0-6.0 Apr 02, 2019 10:11 AM [facility] CBC & DIFF Specimen Type: BLOOD No comment entered. WBC 7.89 K/cmm 3.60-11.20 RBC 4.41 M/ul 4.1-5.7 HGB 12.7 g/dl L 13.1-16.8 HCT 39.5 % 38.2-48.4 MCV 89.6 fl 80.1-98.5 MCH 28.8 pg 27.0-34.0 MCHC 32.2 g/dl L 33.0-36.0 PLATELET COUNT 431 K/cmm H 150-400 MPV 8.9 fl 7.5-11.2 RDW 15.8 % H 11.8-15.1 LYMPHOCYTES, AUTO% 9.8 % NEUTROPHILS, AUTO % 84.0 % MONOCYTES, AUTO% 4.8 % MONOCYTES, ABSOLUTE 0.38 K/cmm 0.19-0.80 NEUTROPHILS, ABSOLUTE 6.64 K/cmm 2.10-8. 00 EOSINOPHILS, ABSOLUTE 0.02 K/cmm 0.00-0. 60 BASOPHILS, ABSOLUTE 0.06 K/cmm 0.00-0.20 EOSINOPHILS, AUTO% 0.3 % BASOPHILS, AUTO% 0.8 % LYMPHOCYTES, ABSOLUTE 0.77 K/cmm 0.77-4. 50 IMMATURE GRANS, ABSOLUTE 0.02 K/cmm 0.00 -0.05 IMMATURE GRANS, AUTO % 0.3 % Apr 02, 2019 10:11 AM [facility] COMPREHENSIVE METABOLI C PANEL Specimen Type: PLASMA No comment entered. *CREATININE 0.83 mg/dL 0.7-1.3 UREA NITROGEN mg/dL 14 mg/dL 9-25 GLUCOSE 95 mg/dL 72-99 SODIUM 134 mEq/L L 136-145 POTASSIUM 4.2 mEq/L 3.5-5.0 CALCIUM (mg/dL) 9.9 mg/dL 8.4-10.4 PROTEIN,TOTAL 8.0 g/dL 6.0-8.6 ALBUMIN 4.3 g/dl 3.4-5.0 TOTAL BILIRUBIN 0.5 mg/dL 0.2-1.2 ASPARTATE TRANSAMINASE 14 U/L 5-34 ALANINE AMINOTRANSFERASE <6 U/L L 8-40 CHLORIDE 95 mEq/L L 98-107 CO2 28 mEq/L 22-31 ALKALINE PHOSPHATASE 78 U/L 40-150 EGFR 91.9 Apr 02, 2019 10:11 AM [facility] C-REACTIVE PROTEIN Specimen Type: SERUM No comment entered. C-REACTIVE PROTEIN 6.43 mg/dL H 0.0-0.5 Vital Signs: All taken on the encounter date This section contains inpatient and outpatient Vital Signs collected on the date of the Encounter. Date/Time Temperature Pulse Blood Pressure Respiratory Rate SP02 Pa in Height Weight Body Mass Index Source Apr 24, 2019 09:31 AM 182.5 lb 2 6 [facility] Apr 24, 2019 09:29 AM 7 [facility] Apr 24, 2019 09:24 AM 96.8 F 76 /min 122/68 mm[Hg] 20 /min 98 % 7 182.5 lb 26 [facility] Immunizations: All administered on the encounter date This section contains immunizations associated to the Encounter. Immunization Series Date Issued Reaction Comments INFLUENZA, TRIVALENT, ADJUVANTED Apr 24, 2019 PNEUMOCOCCAL POLYSACCHARIDE PPV23 Apr 24, 2019 Social History: Smoking Status (Most current) and Tobacco Use (All prior to enco unter date) This section includes the most current, and the historical, smoking and tobacco- related health factors from the [place] facility where the Encounter took place. Current Smoking Status This section includes the most current smoking, or tobacco -related health factor, from the [place] facility where the Encounter took place. Date/Time Current Smoking Status Comment Facility October 17, 2018 05:26 PM VA-TOBACCO QUIT 1 TO < 5 YRS [facility] Tobacco Use History This section includes a history of the smoking, or tobacco -related health factors, that were collected on or before the date of the Encoun ter. The data comes from the [place] facility where the Encounter took place. Date/Time Smoking Status/Tobacco Use Comment Aissatou black October 17, 2018 05:26 PM VA-TOBACCO QUIT 1 TO < 5 YRS [facility] Nov 26, 2017 01:35 PM QUIT TOBACCO IN THE LAST 12 MONTHS F [facility] Nov 26, 2017 01:35 PM TOBACCO CESSATION REFERRAL DECLINED [facility] Nov 26, 2017 01:35 PM TOBACCO MEDS OFFERED BUT DECLINED FO RT [facility] Nov 26, 2017 01:35 PM TOBACCO USER OFFERED [facility] Feb 27, 2017 12:58 PM QUIT TOBACCO IN THE LAST 12 MONTHS F [facility] Feb 27, 2017 12:58 PM TOBACCO CESSATION REFERRAL DECLINED [facility] Feb 27, 2017 12:58 PM TOBACCO MEDS OFFERED BUT DECLINED FO RT [facility] Feb 27, 2017 12:58 PM TOBACCO USER OFFERED [facility] May 02, 2016 09:04 AM CURRENT NON-TOBACCO USER [facility] Sep 29, 2015 07:48 AM CURRENT TOBACCO USER [facility] Sep 29, 2015 07:48 AM TOBACCO OFFERED STOP SMOKING [facility] Mar 19, 2015 07:54 AM CURRENT TOBACCO USER [facility] Mar 19, 2015 07:54 AM TOBACCO OFFERED STOP SMOKING [facility] Jan 02, 2014 08:44 AM CURRENT NON-TOBACCO USER [facility] Jul 30, 2013 10:01 AM CURRENT TOBACCO USER [facility] Jul 17, 2012 11:09 AM CURRENT TOBACCO USER [facility] Advance Directives: All historical and current No Data Provided for This Section Allergies and Adverse Reactions (ADRs): All historical and current Section Date Range: From patient's date of to the date document was create d. This section includes Allergies and Adverse Reactions (ADR s) on record with [facility] for the patient. The data comes from a [facility] treatment facilities. It does not list Allergies/ADRs that were removed or entered in error. Some allergies/ADRs may be reported in t he Immunization section. Allergen Event Date Event Type Reaction(s) Severity Source PANTOPRAZOLE Oct 01, 2018 Propensity to adverse reactions to drug (disorder) Eruption [facility] 15 [place] Jul 17, 2012 Propensity to adverse reactions to drug (disorder) Peripheral edema [facility] Medications: VA dispensed (-15 months) and Non-VA Documented (Obtained Outside A) Section Date Range: 1) prescriptions processed by a VA pharmacy in the last 15 m [facility], and 2) all medications recorded in [...] may be a prescription from either the [place] or other providers that was filled outside the [place]. Or, it may be an over the [...] FOR INHALATION ONCE 1 Nov 16, 2018 [id number] October 17, 2018 KJ POTTER [facility] ALBUTEROL SO4 90MCG/ACTUAT (CFC-F) INHL,ORAL,6.7GM Active INHALE 2 PUFFS BY ORAL INHALATION FOUR TIMES A DAY NEEDED - RINSE MOUTHPIECE FREQUENTLY TO PREVENT CLOGGING Apr 24, 2020 [id number] October 18, 2019 KJ POTTER [facility] ALBUTEROL SO4 90MCG/ACTUAT (CFC-F) INHL,ORAL,6.7GM Discontin ued INHALE 2 PUFFS BY ORAL INHALATION FOUR TIMES A DAY NEEDED - RINSE MOUTHPIECE FREQUENTLY TO PREVENT CLOGGING 2 Apr 24, 2020 [id number] Apr 24, 2019 KJ POTTER ORT [facility] BUDESONIDE 160MCG/FORMOTEROL FUM 4.5MCG/SPRAY INHL,ORAL,10.2 GM Active INHALE 2 PUFFS BY ORAL INHALATION TWO TIMES A DAY FOR BREATHING. SHAKE WELL. RINSE MOUTH AND SPIT AFTER EACH USE. 2 Apr 24, 2020 [id number] October 17, 2019 KJ JOSHI [facility] CALCIUM 500MG (CA CARBONATE-1.25GM) TAB Active: Susp TAKE ONE TABLET BY MOUTH TWO TIMES A DAY 180 Nov 20, 2020 [id number] Jan 09, 2020 KJ POTTER [facility] CALCIUM 500MG (CA CARBONATE-1.25GM) TAB Discontinued TAKE ONE TABLET BY MOUTH TWO TIMES A DAY 180 Jan 08, 2020 [id number] October 21, 2019 KJ POTTER [facility] [place] [facility] CALCIUM 500MG (CA CARBONATE-1.25GM) TAB Discontinued TAKE ONE TABLET BY MOUTH TWO TIMES A DAY 180 Dec 29, 2018 [id number] Oct 01, 2018 [facility] CARBIDOPA 25MG/LEVODOPA 100MG TAB Active TAKE 2 TABLETS BY MOUTH FOUR TIMES A DAY FOR PARKINSON'S DISEASE. DO NOT TAKE WITH FOOD. 240 Nov 24, 2020 [id number] Nov 27, 2019 [facility] [place] [facility] CARBIDOPA 25MG/LEVODOPA 100MG TAB Discontinued TAKE T WO TABLETS BY MOUTH FIVE TIMES DAILY FOR PARKINSON'S DISEASE. DO NOT TAKE WITH FOOD. 600 Jul 02, 2020 [id number] Nov 19, 2019 KJ POTTER [facility] [facility] CARBIDOPA 25MG/LEVODOPA 100MG TAB Discontinued TAKE 2 TABLETS BY MOUTH FIVE TIMES DAILY FOR PARKINSON'S DISEASE. DO NOT TAKE WITH FOOD. 300 Jun 30, 2020 [id number] Jul 01, 2019 [facility] CARBIDOPA 25MG/LEVODOPA 100MG TAB Discontinued TAKE 2 TABLETS BY MOUTH FOUR TIMES A DAY FOR PARKINSON'S DISEASE. DO NOT TAKE WITH FOOD. 240 Jun 24, 2020 [id number] Jun 26, 2019 [facility] [place] [facility] CARBIDOPA 25MG/LEVODOPA 100MG TAB Discontinued TAKE 2 TABLETS BY MOUTH FOUR TIMES A DAY FOR PARKINSON'S DISEASE. DO NOT TAKE WITH FOOD. 240 Dec 25, 2019 [id number] May 15, 2019 [facility] [place] [facility] CARBIDOPA 25MG/LEVODOPA 100MG TAB Discontinued TAKE 2 TABLETS BY MOUTH FOUR TIMES A DAY FOR PARKINSON'S DISEASE. DO NOT TAKE WITH FOOD. 240 Jun 07, 2019 [id number] Nov 18, 2018 ALLEGRA HOWE [facility] [place] [facility] CHOLECALCIFEROL 25MCG (1,000UNIT) TAB Active: Susp TA KE TWO TABLETS BY MOUTH ONCE A DAY FOR VITAMIN D DEFICIENCY 200 Nov 20, 2020 [id number] Dec 172019 [facility] CHOLECALCIFEROL 25MCG (1,000UNIT) TAB Discontinued TA KE TWO TABLETS BY MOUTH ONCE A DAY FOR VITAMIN D DEFICIENCY 200 Dec 25, 2019 [id number] October [facility] [place] [facility] CHOLECALCIFEROL 25MCG (1,000UNIT) TAB Discontinued TA KE TWO TABLETS BY MOUTH ONCE A DAY FOR VITAMIN D DEFICIENCY 200 Oct 10, 2018 [id number] Aug 172018 [facility] CLOPIDOGREL BISULFATE 75MG TAB Active: Susp TAKE ONE TABLET BY MOUTH ONCE A DAY TO PREVENT BLOOD CLOTS 90 Apr 24, 2020 [id number] Dec 19, 2019 KJ POTTER [facility] CLOPIDOGREL BISULFATE 75MG TAB Discontinued TAKE ONE TABLET BY MOUTH ONCE A DAY TO PREVENT BLOOD CLOTS 90 Jun 01, 2019 [id number] Mar 13, 2019 [facility] [place] [facility] DIPHENHYDRAMINE HCL 25MG CAP Non-VA TAKE 1 CAPSULE BY MOUTH EVERY 6 HOURS NEEDED Non-VA Documented by: KJ POTTER nted at: [facility] FLUDROCORTISONE ACETATE 0.1MG TAB Active TAKE ONE TABLET BY M OUTH ONCE A DAY 90 Nov 19, 2020 [id number] Nov 20, 2019 [facility] [place] [facility] FOLIC ACID 1MG TAB Non- VA TAKE ONE TABLET BY MOUTH ONCE A DAY Non-VA Documented by: KJ POTTER nted at: [facility] GABAPENTIN 300MG CAP Active TAKE 1 CAPSULE BY M OUTH 5 TIMES A DAY FOR PAIN AND TREMORS. 300 October 17, 2020 [id number] October 18, 2019 [facility] GABAPENTIN 300MG CAP Discontinued TAKE ONE CAPSULE BY MOUTH FOUR TIMES A DAY FOR PAIN AND TREMORS. 240 Jan 08, 2020 [id number] Oct 14, 2019 [facility] [place] [facility] GABAPENTIN 300MG CAP Discontinued TAKE ONE CAPSULE BY MOUTH FOUR TIMES A DAY FOR PAIN AND TREMORS. 240 Mar 08, 2019 [id number] Jan 07, 2019 [facility] [place] [facility] HYDROCODONE 10MG/ACETAMINOPHEN 325MG TAB Active TAKE ONE TABLET (10/325MG) BY MOUTH THREE TIMES A DAY NEEDED FOR PAIN CAUTION: DO NOT EXCEED 4000MG/DAY TOTAL OF ACETAMINOPHEN (APAP) FROM ALL MEDS 90 Dec 20, 2019 [id number] Nov 21, 2019 [facility] HYDROCODONE 10MG/ACETAMINOPHEN 325MG TAB Discontinued TAKE ONE TABLET (10/325MG) BY MOUTH THREE TIMES A DAY NEEDED FOR PAIN CAUTION: DO NOT EXCEED 4000MG/DAY TOTAL OF ACETAMINOPHEN (APAP) FROM ALL MEDS 90 Sep 17, 2 020 [id number] Sep 04, 2019 [facility] [place] [facility] HYDROCODONE 10MG/ACETAMINOPHEN 325MG TAB Discontinued TAKE ONE TABLET BY MOUTH THREE TIMES A DAY NEEDED FOR PAIN CAUTION: DO NOT EXCEED 4000MG/DAY TOTAL OF ACETAMINOPHEN (APAP) FROM ALL MEDS 90 Jul 26, 2019 [id number] Ja 2019 [facility] [place] [facility] HYDROCODONE 10MG/ACETAMINOPHEN 325MG TAB Discontinued TAKE ONE TABLET BY MOUTH THREE TIMES A DAY NEEDED FOR PAIN CAUTION: DO NOT EXCEED 4000MG/DAY TOTAL OF ACETAMINOPHEN (APAP) FROM ALL MEDS 90 Jun 27, 2019 [id number] De c 2018 [facility] [place] [facility] HYDROCODONE 10MG/ACETAMINOPHEN 325MG TAB Discontinued TAKE ONE TABLET BY MOUTH THREE TIMES A DAY NEEDED FOR PAIN CAUTION: DO NOT EXCEED 4000MG/DAY TOTAL OF ACETAMINOPHEN (APAP) FROM ALL MEDS 90 May 08, 2019 [id number] Oc t 2018 [facility] [place] [facility] HYDROCODONE 10MG/ACETAMINOPHEN 325MG TAB Discontinued TAKE ONE TABLET BY MOUTH THREE TIMES A DAY NEEDED FOR PAIN CAUTION: DO NOT EXCEED 4000MG/DAY TOTAL OF ACETAMINOPHEN (APAP) FROM ALL MEDS 90 Mar 28, 2019 [id number] Se p 2018 [facility] [place] [facility] HYDROCODONE 10MG/ACETAMINOPHEN 325MG TAB Discontinued TAKE ONE TABLET BY MOUTH THREE TIMES A DAY NEEDED FOR PAIN CAUTION: DO NOT EXCEED 4000MG/DAY TOTAL OF ACETAMINOPHEN (APAP) FROM ALL MEDS 90 Feb 06, 2019 [id number] Ju l 2018 [facility] [place] [facility] HYDROCODONE 10MG/ACETAMINOPHEN 325MG TAB Discontinued TAKE ONE TABLET BY MOUTH THREE TIMES A DAY NEEDED FOR PAIN CAUTION: DO NOT EXCEED 4000MG/DAY TOTAL OF ACETAMINOPHEN (APAP) FROM ALL MEDS 90 Dec 05, 2018 [id number] Ma y 2018 [facility] [place] [facility] HYDROCODONE 10MG/ACETAMINOPHEN 325MG TAB Discontinued TAKE ONE TABLET BY MOUTH THREE TIMES A DAY NEEDED FOR PAIN CAUTION: DO NOT EXCEED 4000MG/DAY TOTAL OF ACETAMINOPHEN (APAP) FROM ALL MEDS 90 October 25, 2018 [id number] Ap r 2018 [facility] [place] [facility] HYDROCODONE 10MG/ACETAMINOPHEN 325MG TAB TAKE ONE TABLET (10/325MG) BY MOUTH THREE TIMES A DAY NEEDED FOR PAIN CAUTION: DO NOT EXCEED 4000MG/DAY TOTAL OF ACETAMINOPHEN (APAP) FROM ALL MEDS 90 November 16, 2019 [id number] October 18, 2019 [facility] METHOTREXATE NA 2.5MG TAB Active TAKE SEVEN TABLETS BY MOUTH EVERY WEEK October 17, 2020 [id number] November 04, 2019 [facility] METHOTREXATE NA 2.5MG TAB Discontinued TAKE SEVEN TABLETS BY MOUTH EVERY WEEK May 09, 2020 [id number] Aug 16, 2019 NASH KULKARNI [facility] METHOTREXATE NA 2.5MG TAB Discontinued TAKE SEVEN TABLETS BY MOUTH EVERY WEEK 90 Aug 04, 2019 [id number] Feb 22, 2019 YOU GOMEZ [facility] [place] [facility] NORTRIPTYLINE HCL 10MG CAP Active TAKE 2 CAPSULES BY MO UTH AT BEDTIME NEEDED 120 Apr 02, 2020 [id number] Nov 20, 2019 [facility] [place] [facility] NORTRIPTYLINE HCL 10MG CAP Discontinued TAKE 2 CAPSUL ES BY MOUTH AT BEDTIME NEEDED 120 Mar 20, 2019 [id number] Jan 23, 2019 [facility] OMEPRAZOLE 20MG CAP,EC Active TAKE 1 CAPSULE BY MOUTH EVERY MORNING TO LOWER STOMACH ACID. TAKE 30 MINUTES PRIOR TO FOOD. 90 October 17, 2020 [id number] October 21, 2019 [facility] OMEPRAZOLE 20MG CAP,EC Discontinued TAKE 1 CAPSULE BY MOUTH EVERY MORNING TO LOWER STOMACH ACID. TAKE 30 MINUTES PRIOR TO FOOD. 90 Oct 02, 2019 [id number] Aug 02, 2019 [facility] [place] [facility] PREDNISONE 1MG TAB Discontinued TAKE THREE TABLETS B Y MOUTH ONCE A DAY FOR INFLAMMATION AND IMMUNE RESPONSE. TAKE WITH FOOD OR MILK. 270 2019 [id number] Apr 24, 2019 [facility] PREDNISONE 1MG TAB Discontinued TAKE FOUR TABLETS BY MOUTH ONCE A D AY 360 Apr 22, 2019 [id number] Jan 24, 2019 [facility] [place] [facility] PREDNISONE 1MG TAB Discontinued TAKE FOUR TABLETS BY MOUTH ONCE A D AY 360 Dec 29, 2018 [id number] Oct 01, 2018 NASH KULKARNI V [facility] PREDNISONE 1MG TAB TAKE THREE TABLETS B Y MOUTH ONCE A DAY FOR INFLAMMATION AND IMMUNE RESPONSE. TAKE WITH FOOD OR MILK. 270 Ap r 2019 [id number] Jul 13, 2019 [facility] [place] [facility] PREDNISONE 5MG TAB Discontinued TAKE ONE TABLET BY MOUTH ONCE A DAY WITH FOOD 60 Aug 01, 2019 [id number] Sep 25, 2018 [facility] [place] [facility] ROPINIROLE HCL 1MG TAB Active TAKE ONE TABLET BY MOUTH AT BED TIME 90 October 17, 2020 [id number] Nov 25, 2019 [facility] ROPINIROLE HCL 1MG TAB Discontinued TAKE ONE TABLET BY MOUTH AT BED TIME 90 Dec 05, 2019 [id number] Sep 03, 2019 KRYSTAL DEJESUS [facility] [place] [facility] ROPINIROLE HCL 1MG TAB Discontinued TAKE ONE TABLET BY MOUTH AT BED TIME 90 Dec 13, 2018 [id number] Sep 12, 2018 [facility] [place] [facility] TAMSULOSIN HCL 0.4MG CAP Active: Susp TAKE 1 CAPSULE BY MOUTH ONCE A DAY FOR PROSTATE. TAKE AT THE SAME TIME EACH DAY WITH FOOD. 90 Sep 30 1 [id number] Dec 20, 2019 [facility] [place] [facility] TAMSULOSIN HCL 0.4MG CAP Discontinued TAKE 1 CAPSULE BY MOUTH ONCE A DAY FOR PROSTATE. TAKE AT THE SAME TIME EACH DAY WITH FOOD. 90 Sep 12 0 [id number] Jun 24, 2019 LIS BRUCE [facility] [place] [facility] Problems (Conditions): All historical [...] ent(s) Provider Source Abnormal radiologic density Active [id number] [facility] [place] [facility] Allergic rhinitis Active [id number] MARIELADY [facility] [place] [facility] Anemia Active [id number] [facility] [place] [facility] Chest pain (SNOMED CT 50911920) Active 786.50 [facility] [place] [facility] Chondrocalcinosis Active [id number] JASONYOU [facility] [place] [facility] Chronic obstructive lung disease Active [id number] [facility] [place] [facility] Coronary artery disease Active [id number] Angella LINDSEY [facility] [place] [facility] Cough Active [id number] LADY SALZAAR MIZE Angella Love [facility] [place] [facility] Cough (SNOMED CT 42933440) Active 786.2 [facility]EL [facility] [place] [facility] Dysarthria (SNOMED CT 4220041) Active 784.51 M [facility] [place] [facility] Dyspnea (SNOMED CT 335197331) Active 786.09 KJ BARKSDALE [facility] [place] [facility] Eruption due to drug Active [id number] Abdiaziz POTTER TORY [facility] [place] [facility] Gastroesophageal reflux disease Active [id number] KJ POTTER [facility] [place] [facility] Hallux valgus AND bunion Active [id number] DEISY GERMAIN [facility] [place] [facility] Joint pain (SNOMED CT 52117739) Active 719.40 DEISY CONTRERAS [facility] [place] [facility] Joint swelling (SNOMED CT 699703880) Active 719.00 KJ POTTER [facility] [place] [facility] Knee pain Active 54709841 JENNIFER LINDSEY [facility] [place] [facility] Muscle weakness (SNOMED CT 50754027) Active 728.87 KJ POTTER [facility] [place] [facility] Neuropathy Active [id number] KJ POTTER RN [facility] [place] [facility] Osteoarthritis Active 715.36 DYAN SERVIN [facility] [place] [facility] Parkinson's disease Active [id number] ETHAN POTTER KAYLYN [facility] [place] [facility] Peripheral Neuropathy Active 356.9 DASARAJU,P [facility] [place] [facility] Personal History of Exposure to Agent [place] Active V15.89 DEISY CONTRERAS [facility] [place] [facility] Polyp of colon (SNOMED CT 28775550) Active 211.3 TARIQKJ SMITH [facility] [place] [facility] Restless legs Active [id number] PATRICK WHITE [facility] [place] [facility] Rheumatoid arthritis Active [id number] Abdiaziz POTTER TORY [facility] [place] [facility] Screening, Malignancy Active V76.89 LISSETH TOLEDO [facility] [place] [facility] Sleep apnea Active [id number] KJ [facility] [facility] Synovial cyst of popliteal space (SNOMED CT [id number]) Active 727.51 [facility] Tobacco dependence in remission Active 996878942 [facility] Tobacco use Active 110861496 JENNIFER LINDSEY [facility] Tremor Active 78959568 ROSALIAJENNIFER Pope RUMA K S [facility] Unresolved Active 34348281 ROSALIAJENNIFER Pope DAKSHANERY [place] [facility] Unresolved Active [id number] JENNIFER LINDSEY Toshia CHEUNG [facility] Radiology Reports: +/- 30 days of the encounter No Data Provided for This Section Pathology Reports: +/- 30 days of the encounter No Data Provided for This Section Encounter Notes: All associated encounter notes This section contains the clinical notes associated to the Encounter. Date/Time Encounter Note(s) Provider Source Apr 24, 2019 09:27 AM NURSING OUTPATIENT NOTE: LOCAL TITLE: -NURSING CLINIC CHECK-IN STANDARD TITLE: NURSING OUTPATIENT NOTE DATE OF NOTE: APR 24, 2019@09:27 ENTRY DATE: APR 24, 2019@09:27:39 AUTHOR: JENNIFER LINDSEY EXP COSIGNER: URGENCY: STATUS: COMPLETED PRIMARY REASON FOR VISIT TODAY: 5m PATIENT'S GOAL/MISSION FOR THEIR HEALTH: feel better ALLERGIES/ADR: PENICILLIN, PANTOPRAZOLE VITALS: DATE/TIME TEMP PULSE RESP BP PAIN WEIGHT PUL OX 04/24/19 @ 0924 96.8 76 20 122/68 7 182.5 98 REPRODUCTIVE HISTORY: Concerns regardng sexual/reproductive health: None MEDICATION RECONCILIATION: Copy of current medication list on file provided for patient. Instructed to compare with all medications they are currently taking, and to review /discuss discrepancies with provider. LEARNING ASSESSMENT: Patient's preferred language for discussing health care is: Romanian Today's learning assessment regarding patient's readiness to learn. Patient reads well. Barriers to Learning: Vision barrier addressed by: patient eyeglasses in place. Preferred Method of Learning: Reading Listening Seeing / Videos Demonstration Return Demonstration Hands On/Doing Education provided as per documentation below: SCREENING FOR PAIN STATUS: Patient reported pain level as 7 (04/24/2019 09:24) on 0 to 10 scale. * Today's Pain Level: 7 Pain Scale used: Numerical Pain Scale Patient states current level of pain is: Acceptable Location of pain that most interferes with your life: knees,shoulders,hips Characteristics of pain: PAIN QUALITY: Aching, Dull, Sharp Verbal Education Provided: To patient Understanding of education: Patient: Good Patient Support Member: Not applicable Barriers to Learning: None SCREENING FOR FALL RISK: Sherman Fall Assessment History of Falling, immediate or within 3 months: 25 - Yes Has the patient fallen within the last 12 months? Yes Secondary Diagnosis: 15 - Yes, more than one diagnosis Ambulatory Aid: 0 - None, bed rest nurse assist Intravenous Therapy: 0 - No Patient's Gait: 0 - Normal, bed rest, immobile Mental Status: 0 - Oriented to own ability Total Score: 40 Moderate (25-44) Provided educational handout: Fall Prevention at Home SCREENING FOR ABUSE/NEGLECT: Do you have any concerns about feeling safe, neglected or abused? Patient reports feeling safe; denies concern of abuse or neglect. SECURE MESSAGING: Patient was invited/encouraged to utilize Secure Messaging for medication refill requests and other non-urgent communication. N:BMI Screen: * Weight: 182.5 lb (83 kg) N:Depression Screening : PHQ-2+I9 Depression Screening Score: 0 The score on this administration is 0, which indicates a negative screen on the Depression Scale over the past two weeks. Suicide Screening Score: 0 The results of this administration indicates a NEGATIVE primary screen for Risk of Suicide over the last 2 weeks. Over the past two weeks, how often have you been bothered by the following problems? 1. Little interest or pleasure in doing things Not at all 2. Feeling down, depressed, or hopeless Not at all 3. Thoughts that you would be better off or of hurting yourself in some way Not at all N:Homeless/Food Insecurity Scr: In the past 2 months, have you been living in stable housing that you own, rent, or stay in as part of a household? Yes - Living in stable housing. Are you worried or concerned that in the next 2 months you may NOT have stable housing that you own, rent, or stay in as part of a household? No - Not worried about housing near future In the past three months did you ever run out of food and you were not able to access more food or have the money to buy more food? No - No Food shortage N:Relationship Health and Safety: Ask the [facility] the following questions: In the past 12 months did a current or former intimate partner (e.g) boyfriend, girlfriend, , , sexual partner): Scream or curse at you No Insult or talk down to you No Threaten you with harm No Physically hurt you No Force or Pressure you to have sexual Contact against your will, or when you were Unable to say no No Note: If All no's provide [facility] with contact information for IPV Coordinator and National Domestic Violence Hotline 0-137-148-YKPC (6366) or www.RETC.VINTAGEHUB. Tobacco Use Screening: The patient is a former tobacco user. The patient quit one to less than 5 years ago. N:Pneumococcal PPSV23 (Pneumovax): The patient received pneumococcal polysaccharide vaccine PPSV23 (Pneumovax) 0.5ml IM today in Right Deltoid. Scalp Treatment Operator: [employer] Lot # and Expiration Date: [id number] Administered by protocol/policy Complications: None The pneumococcal polysaccharide vaccine PPSV23 (Pneumovax) VIS was given to the patient today. VIS version date Mar. EK-V15 Influenza Immunization 19: INFLUENZA IMMUNIZATION V1.0 Is the PATIENT an employee of [employer]? No. Adjuvant vaccine - Fluad (ages 65 and older) ("Free of preservative, including Thimerosal. Free of Latex. May contain trace amounts of neomycin, kanamycin, barium, hydrocortisone, as well as residual amount of egg proteins, formaldehyde or CTAB). Patient given Influenza Vaccination 0.5 cc I.M. during this visit. Influenza Lot and Scalp Treatment Operator: Lot #:[id number] REVENTIVE. Expiration Date: 11/16/2019 Left Deltoid Patient tolerated injection well during this visit with no adverse effects. [facility] Vaccination Information Sheet (VIS) dated January 30, 2019 was given to patient. The patient's verbal consent was obtained prior to vaccination. The patient denies having a fever or is afebrile. The patient denies allergy to flu vaccine, Thimerosal, Neomycin, Polymyxin, eggs or any other component of Flu vaccine. The patient denies history of Guillain Bedford Syndrome The patient denies moderate/severe illness. /sofya/ JENNIFER LINDSEY LPN Signed: 04/24/2019 09:47 JENNIFER LINDSEY [facility] Apr 24, 2019 07:31 AM PRIMARY CARE NURSE PRACTITIO NEIL NOTE: LOCAL TITLE: EK-NURSE PRACTITIONER PC STANDARD TITLE: PRIMARY CARE NURSE PRACTITIONER NOTE DATE OF NOTE: APR 24, 2019@07:31 ENTRY DATE: APR 24, 2019@07:32 AUTHOR: KJ POTTER EXP COSIGNER: URGENCY: STATUS: COMPLETED Reason for visit: 6 month appt, lab results CC: Parkinson's sxs increasing HPI: Followup chronic medical conditions. [place] Rheum decreased prednisone further to 3mg/day. C/o Parkinson's sxs increasing. Experiencing sudden "bouts [...] worse. I see Dr Howe in May." Other providers: Dr William Medina-[place], [place], [facility], Cole-neurologist ROS: Denies chest pain. Shortness of breath [...] no edema in feet, continuation of methotrexate, prednisone, R>L. Denies skin problems. Joint pain: right shoulder, hands, knees, hips, left arm, shoulders, mid to low back pain/stiffness. Takes hydrocodone 2 tabs at HS and needing daytime dose. Numbness in hands left > right. Knees may swell with overuse. Mood: depression improved. Self-DCd zoloft. PSH: Left Knee surgery 1969 Right Knee surgery; cartilage 1982 Appendectomy age 9 bilat cataracts removed Jan and Feb colonoscopy and polyp removed 09/16/12 fractured left elbow ', casted, no surgery 01/06/14 cardiac cath at [facility] Tobacco: quit smoking in August 2016 ETOH: rarely Activity: becoming more limited, home and yard maintenance, helps care for grandkids Exercise: keeps active as tolerated, performing stretching exercises even of hands. HEP for knees. Walking with . 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 DO NOT TAKE WITH FOOD. 4) CHOLECALCIFEROL (VIT D3) 1,000UNIT TAB TAKE TWO ACTIVE TABLETS BY MOUTH ONCE A DAY FOR VITAMIN D DEFICIENCY 5) CLOPIDOGREL BISULFATE 75MG TAB TAKE ONE TABLET BY ACTIVE MOUTH ONCE A DAY TO PREVENT BLOOD CLOTS 6) GABAPENTIN 300MG CAP TAKE ONE CAPSU LE BY MOUTH FOUR ACTIVE TIMES A DAY FOR PAIN AND TREMORS. 7) HYDROCODONE 10/ACETAMINOPHEN 325MG TAB TAKE 1 TABLET ACTIVE BY MOUTH THREE TIMES A DAY NEEDED FOR PAIN CAUTION: DO NOT EXCEED 4000MG/DAY TOTAL OF ACETAMINOPHEN (APAP) FROM ALL MEDS 8) METHOTREXATE NA 2.5MG TAB TAKE LI N TABLETS BY MOUTH ACTIVE EVERY WEEK 9) NORTRIPTYLINE HCL 10MG CAP TAKE TWO CAPSULES BY MOUTH ACTIVE AT BEDTIME NEEDED 10) OMEPRAZOLE 20MG EC CAP TAKE ONE CAP ALICIA BY MOUTH ACTIVE EVERY MORNING TO LOWER STOMACH ACID. TAKE 30 MINUTES PRIOR TO FOOD. 11) ROPINIROLE HCL 1MG TAB TAKE ONE TAB LET BY MOUTH AT ACTIVE BEDTIME 12) TAMSULOSIN HCL 0.4MG CAP TAKE ONE C APSULE BY MOUTH ACTIVE ONCE A DAY FOR PROSTATE. TAKE AT THE SAME TIME EACH DAY WITH FOOD. Non-VA Medications Status 1) Non-VA DIPHENHYDRAMINE HCL 25MG CAP 25MG MOUTH EVERY ACTIVE 6 HOURS NEEDED 2) Non-VA FOLIC ACID 1MG TAB 1MG MOUTH ONCE A DAY ACTIVE 14 Total Medications Compared newly ordered medications and medication changes to active medications and non-VA medications, and then reviewed medications with patient and/or caregiver. All discrepancies noted and reconciled. Patients, or caregivers, was provided with reconciled medications list and advised to provide to all non VA providers. Potential adverse reactions of new medications were discussed with the patient. Allergies: PENICILLIN, PANTOPRAZOLE PE: Vital signs: B/P: 122/68 (04/24/2019 09:24) Temp: 96.8 F [36.0 C] (04/24/2019 09:24) Pulse: 76 (04/24/2019 09:24) Resp: 20 (04/24/2019 09:24) Height: 70 in [177.8 cm] (12/15/2015 12:41) Weight: 182.5 lb [83.0 kg] (04/24/2019 09:24) Pain: 7 (04/24/2019 09:24) BMI: 26.2 General: Ambulatory. Cooperative, alert and oriented to person, place and time. General appearance: casually dressed. Distress due to knee pain. Note fine tremors of UE today. Gait is slightly slow due to knee pain and joint stiffness. HEENT: Glasses, MITCHELL, gazes intact. TMs clear. Pharynx clear Neck: Supple. No masses, adenopathy, thyromegaly, bruits, JVD Cardiac: HRR, no murmur Respiratory: unlabored, CTA Abdomen: Soft, bowel sounds +, denies tenderness to palpation Extremities: Trace edema at feet and ankles. Note varicosities superfical bilat LE. No cyanosis. Slight clubbing. Labs: 04/02/19 Results reviewed with vet and copy provided. Reminders: P:Influenza Refused: Patient refused influenza vaccine after discussion with the physician. P:Outpt Medication Reconciliation: MEDICATION RECONCILIATION I have [...] Patient verbalizes understanding: yes. P:Test Results Notification: The following tests results along with appropriate management plan were discussed with patient at this clinic visit: Lab results It is documented that patient verbalized understanding of results and/or actions required? Yes P:Chronic Opioid Therapy: Based on prescription records, this [facility] has been identified as a patient on long-term opioid therapy: [facility] is prescribed long-term opioid therapy for chronic [...] knees, shoulders, left hand Description of pain: sharp 2. Activities of Daily Living Enjoyment of Life: Interference of pain with his/her enjoyment of life in the past week (0-Does not interfere, 10-Completely interferes): Enjoyment of life = 8 General Activity: Interference of pain with his/her general activity in the past week (0-Does not interfere, 10-Completely interferes): General Activity = 8 3. Adverse Effects reports no side effects with current opioid therapy. 4. Adherence to Treatment Plan [facility] is compliant with non opioid treatment modalities has consented to ongoing drug testing as part of the treatment plan? Yes Urine drug screen has been completed within the last 6 months? Yes, no new order needed State Rx Drug Monitoring No State Rx Drug Monitoring note found in the patient chart. EKG done within the last year for Methadone patients? N/A Additional absolute or relative contraindications identified: The [facility] does NOT meet any of the above absolute or relative contraindications Opioid Informed Consent Cohort: Computed Finding: [facility] 10/12/2016@09:00 value - CONSENT FOR LONG-TERM OPIOIDS FOR PAIN; Author: KJ POTTER Assessment/Plan: 1. Rheumatoid arthritis: Seen by CECY barbosa 04/09/19, has 08/06/19 f/u scheduled. Continue methotrexate tabs weekly. Prednisone has been decreased to 3mg/day. Hydrocodone 10/325 prn, 2-3x/day, depends on level of activity. 2. right shoulder pain/strain: 10/25/18 O rtho, received joint injection. Can repeat as needed. Vet did not respond/schedule [facility] PT as ordered. In past, vet has refused PT "It makes it hurt too bad." 3. COPD/Dyspnea/abnormal CT chest findin gs: 08/13/18 consult w/ [facility] Pulm declined by vet. 10/25/18 [facility] PULM also declined by vet. Vet declines PULM consult again today. CT 08/01/18, 3 month repeat 10/25/18. Order placed for repeat LDCT chest. States he does not want to repeat PFTs due to near syncopal episodes. Continue Symbicort 160/4.5 BID and albuterol inhaler prn. PET scan 11/09/15. Nebulized albuterol prn. 4. Chronic Knee Pain Bilateral: No longe r followed by [facility] Ortho Dr Guerrero, completed PT. TO [facility] 08/21/17, received bilat knee joint inj. Hydrocodone 10/325 1 tab tid prn. Opiate consent 09/17 01/01. [facility] 01/08/19. ALF 04/02/19. 5. insomnia: nortriptyline 20mg/hs 6. hx near syncope: 05/02/18 MRI brain s table 7. Parkinson's: [facility] Consult Appt. on MAR 28, 2018@13:00 PID [id number], ALLEGRA HOWE, [address], [address], [place] [address] P: [id number]. AUTH # [id number]. AUTH [id number]. Carbidopa 25/levodopa 100mg 2 tabs QID. Gabapentin 600mg QID. Increasing difficulties. Next appt scheduled in May. 8. TIA: Plavix 75mg/day (started by Dr [...] Restless legs/chronic leg pain: Cont inues gabapentin 600mg QID. Requip 1mg/hs. 11. Tobacco use: quit smoking [...] 16. Chest pain: cardiac cath 01/06/14 at [facility] negative for blockage, see [facility] info. Had stress test 12/15/13, cardiology follow up 12/23/13. Seen by cardiology 03/26/14 and DCd from clinic. Per [facility] NS, echo and holter monitor obtained to r/o arrhythmia as cause of left-sided weakness. 2 D echo 08/04/15 EF 60-65%, mild diastolic dysfunction. Holter monitor essentially neg. 17. bilateral hearing loss: hearing aids 18. leukocytosis: wbc wnl. 19. BPH: continue flomax daily 20. obstructive sleep apnea: unable to t olerate CPAP, declines to re-try [facility] is involved in treatment decisions, options are discussed. Medications are reviewed, along with pros and cons and alternatives. Questions are encouraged and answered. Instructed to seek emergency medical care if necessary at nearest local facility, or call 911. Orders: 1. 6 month non-fast lab and appt to annia parry at [facility]: cmp, cbc, ALF /sofya/ KJ POTTER [facility] Signed: 04/24/2019 17:47 Receipt Acknowledged By: 04/25/2019 07:42 /sofya/ MARTIN SHULTZ medical insurance claims specialist KJ POTTER [facility]
--- OUTSIDE RECORDS SUMMARY | 2019-12-04 22:02 | XMS REPORT | Encounter Summary ---
Author Author [facility] CARLOS sweeney Organization Department of [facility] Address [address] [place] [address] Phone Unavailable Care Team Providers Care [employer] Developer Name Role Phone TARIQKOURTNEY PCP Unavailable Insurance [...] PLAN G MEDICARE SUPPLEMENT Dec PLAN G [id number] [phone] ROSALINACARLOS PATIENT MEDICARE (WNR) MEDICARE (M) PART A Dec 16, 2014 PART A [id number] ROSALINACARLOS PATIENT MEDICARE (WNR) MEDICARE (M) PART B Dec 16, 2014 PART B [id number] [phone] CARLOS ROMANO PATIENT MEDICO DENTAL INSURANCE DENTAL VISIONHEARING Dec 16, 2014 DENTAL VISIONHEAR [id number] [phone] CARLOS ROMANO PATIENT Selected Encounter This section includes the information on record at [place] for the Encounter. Date/Time Encounter Type Encounter Description Reason Provider Source Jun 24, 2019 01:47 PM Outpatient Encounter PRIMARY CARE/MEDICINE JENNIFER LINDSEY [facility], [facility] IHE Encounter Template Text not used by PR Assessments - Encounter Diagnoses No Data Provided for This Section Plan of Treatment: Future Appointments (+ 6 months) and Future Tests (+/- 45 day s) The Plan of Treatment section includes future care activities for the patient fr om all [facility] facilities. This section includes future appointments and fu ture orders which are active, pending or scheduled. Future Appointments This section includes appointments that were scheduled t o occur 6 months from the date of the Encounter, up to a maximum of 20 appointme nts. The data comes from all [facility]. Appointment Date/Time Appointment Type Appointment Facili ty Name Aug 06, 2019 01:00 PM AMBULATORY - MEDICINE [facility] October 17, 2019 09:00 AM AMBULATORY - MEDICINE [facility] [place] October 27, 2019 09:45 AM AMBULATORY - NONE [facility] Nov 20, 2019 05:00 PM AMBULATORY - MEDICINE [facility] [place] Nov 24, 2019 11:20 AM AMBULATORY - NONE [facility] Dec 02, 2019 10:30 AM AMBULATORY - NONE [facility] Dec 03, 2019 12:30 PM AMBULATORY - NONE [facility] EL[facility] Dec 04, 2019 10:45 AM AMBULATORY - MEDICINE [facility] Dec 10, 2019 01:30 PM AMBULATORY - MEDICINE [facility] Active, Pending, and Scheduled Orders [...] the Encounter. The data comes from all [facility]. 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 [facility] Surgical Procedures: All associated to [...] to adverse reactions to drug (disorder) Eruption [facility] 15 [place] Jul 17, 2012 Propensity to adverse reactions to drug (disorder) Peripheral edema [facility] 15 Medications: VA dispensed (-15 months) and Non-VA Documented (Obtained Outside V A) Section Date Range: 1) prescriptions processed by a VA pharmacy in the last 15 m [facility], and 2) all medications recorded in [...] FOR INHALATION ONCE 1 Nov 16, 2018 [id number] October 17, 2018 KOURTNEY POTTER [facility] ALBUTEROL SO4 90MCG/ACTUAT (CFC-F) INHL,ORAL,6.7GM Active INHALE 2 PUFFS BY ORAL INHALATION FOUR TIMES A DAY NEEDED - RINSE MOUTHPIECE FREQUENTLY TO PREVENT CLOGGING 1 Apr 24, 2020 [id number] October 18, 2019 KOURTNEY POTTER [facility] ALBUTEROL SO4 90MCG/ACTUAT (CFC-F) INHL,ORAL,6.7GM Discontin ued INHALE 2 PUFFS BY ORAL INHALATION FOUR TIMES A DAY NEEDED - RINSE MOUTHPIECE FREQUENTLY TO PREVENT CLOGGING 2 Apr 24, 2020 [id number] Apr 24, 2019 KOURTNEY POTTER [facility] BUDESONIDE 160MCG/FORMOTEROL FUM 4.5MCG/SPRAY INHL,ORAL,10.2 GM Active INHALE 2 PUFFS BY ORAL INHALATION TWO TIMES A DAY FOR BREATHING. SHAKE WELL. RINSE MOUTH AND SPIT AFTER EACH USE. 2 Apr 24, 2020 [id number] October 17, 2019 KOURTNEY JOSHI [facility] CALCIUM 500MG (CA CARBONATE-1.25GM) TAB Active: Susp TAKE ONE TABLET BY MOUTH TWO TIMES A DAY 180 Nov 20, 2020 [id number] Jan 09, 2020 KOURTNEY POTTER [facility] CALCIUM 500MG (CA CARBONATE-1.25GM) TAB Discontinued TAKE ONE TABLET BY MOUTH TWO TIMES A DAY 180 Jan 08, 2020 [id number] October 21, 2019 KOURTNEY POTTER [facility] [place] [facility] CALCIUM 500MG (CA CARBONATE-1.25GM) TAB Discontinued TAKE ONE TABLET BY MOUTH TWO TIMES A DAY 180 Dec 29, 2018 [id number] Oct 01, 2018 NASH KULKARNI [facility] CARBIDOPA 25MG/LEVODOPA 100MG TAB Active TAKE 2 TABLETS BY MOUTH FOUR TIMES A DAY FOR PARKINSON'S DISEASE. DO NOT TAKE WITH FOOD. 240 Nov 24, 2020 [id number] Nov 27, 2019 ALLEGRA HOWE [facility] [place] [facility] CARBIDOPA 25MG/LEVODOPA 100MG TAB Discontinued TAKE T WO TABLETS BY MOUTH FIVE TIMES DAILY FOR PARKINSON'S DISEASE. DO NOT TAKE WITH FOOD. 600 Jul 02, 2020 [id number] Nov 19, 2019 [facility] [facility] CARBIDOPA 25MG/LEVODOPA 100MG TAB Discontinued TAKE 2 TABLETS BY MOUTH FIVE TIMES DAILY FOR PARKINSON'S DISEASE. DO NOT TAKE WITH FOOD. 300 Jun 30, 2020 [id number] Jul 01, 2019 [facility] [place] [facility] CARBIDOPA 25MG/LEVODOPA 100MG TAB Discontinued TAKE 2 TABLETS BY MOUTH FOUR TIMES A DAY FOR PARKINSON'S DISEASE. DO NOT TAKE WITH FOOD. 240 Jun 24, 2020 [id number] Jun 26, 2019 [facility] [facility] CARBIDOPA 25MG/LEVODOPA 100MG TAB Discontinued TAKE 2 TABLETS BY MOUTH FOUR TIMES A DAY FOR PARKINSON'S DISEASE. DO NOT TAKE WITH FOOD. 240 Dec 25, 2019 [id number] May 15, 2019 [facility] CARBIDOPA 25MG/LEVODOPA 100MG TAB Discontinued TAKE 2 TABLETS BY MOUTH FOUR TIMES A DAY FOR PARKINSON'S DISEASE. DO NOT TAKE WITH FOOD. 240 Jun 07, 2019 [id number] Nov 18, 2018 [facility] [place] [facility] CHOLECALCIFEROL 25MCG (1,000UNIT) TAB Active: Susp TA KE TWO TABLETS BY MOUTH ONCE A DAY FOR VITAMIN D DEFICIENCY 200 Nov 20, 2020 [id number] Dec 172019 [facility] CHOLECALCIFEROL 25MCG (1,000UNIT) TAB Discontinued TA KE TWO TABLETS BY MOUTH ONCE A DAY FOR VITAMIN D DEFICIENCY 200 Dec 25, 2019 [id number] October [facility] [place] [facility] CHOLECALCIFEROL 25MCG (1,000UNIT) TAB Discontinued TA KE TWO TABLETS BY MOUTH ONCE A DAY FOR VITAMIN D DEFICIENCY 200 Oct 10, 2018 [id number] Aug 172018 [facility] CLOPIDOGREL BISULFATE 75MG TAB Active: Susp TAKE ONE TABLET BY MOUTH ONCE A DAY TO PREVENT BLOOD CLOTS 90 Apr 24, 2020 [id number] Dec 19, 2019 [facility] CLOPIDOGREL BISULFATE 75MG TAB Discontinued TAKE ONE TABLET BY MOUTH ONCE A DAY TO PREVENT BLOOD CLOTS 90 Jun 01, 2019 [id number] Mar 13, 2019 [facility] [place] [facility] DIPHENHYDRAMINE HCL 25MG CAP Non-VA TAKE 1 CAPSULE BY MOUTH EVERY 6 HOURS NEEDED Non-VA Documented by: KOURTNEY POTTER nted at: [facility] FLUDROCORTISONE ACETATE 0.1MG TAB Active TAKE ONE TABLET BY M OUTH ONCE A DAY 90 Nov 19, 2020 [id number] Nov 20, 2019 [facility] [place] [facility] FOLIC ACID 1MG TAB Non- VA TAKE ONE TABLET BY MOUTH ONCE A DAY N on-VA Documented by: KOURTNEY POTTER nted at: [facility] GABAPENTIN 300MG CAP Active TAKE 1 CAPSULE BY M OUTH 5 TIMES A DAY FOR PAIN AND TREMORS. 300 October 17, 2020 [id number] October 18, 2019 [facility] GAB[facility] 300MG CAP Discontinued TAKE ONE CAPSULE BY MOUTH FOUR TIMES A DAY FOR PAIN AND TREMORS. 240 Jan 08, 2020 [id number] Oct 14, 2019 [facility] GABAPENTIN 300MG CAP Discontinued TAKE ONE CAPSULE BY MOUTH FOUR TIMES A DAY FOR PAIN AND TREMORS. 240 Mar 08, 2019 [id number] Jan 07, 2019 [facility] [place] [facility] HYDROCODONE 10MG/ACETAMINOPHEN 325MG TAB Active TAKE ONE TABLET (10/325MG) BY MOUTH THREE TIMES A DAY NEEDED FOR PAIN CAUTION: DO NOT EXCEED 4000MG/DAY TOTAL OF ACETAMINOPHEN (APAP) FROM ALL MEDS 90 Dec 20, 2019 [id number] Nov 21, [address] [facility] HYDROCODONE 10MG/ACETAMINOPHEN 325MG TAB Discontinued TAKE ONE TABLET (10/325MG) BY MOUTH THREE TIMES A DAY NEEDED FOR PAIN CAUTION: DO NOT EXCEED 4000MG/DAY TOTAL OF ACETAMINOPHEN (APAP) FROM ALL MEDS 90 Sep 17, 2 020 [id number] Sep 04, 2019 [facility] [place] [facility] HYDROCODONE 10MG/ACETAMINOPHEN 325MG TAB Discontinued TAKE ONE TABLET BY MOUTH THREE TIMES A DAY NEEDED FOR PAIN CAUTION: DO NOT EXCEED 4000MG/DAY TOTAL OF ACETAMINOPHEN (APAP) FROM ALL MEDS 90 Jul 26, 2019 [id number] Jun 26, 2019 [facility] [place] [facility] HYDROCODONE 10MG/ACETAMINOPHEN 325MG TAB Discontinued TAKE ONE TABLET BY MOUTH THREE TIMES A DAY NEEDED FOR PAIN CAUTION: DO NOT EXCEED 4000MG/DAY TOTAL OF ACETAMINOPHEN (APAP) FROM ALL MEDS 90 Jun 27, 2019 [id number] May 29, 2019 [facility] [place] [facility] HYDROCODONE 10MG/ACETAMINOPHEN 325MG TAB Discontinued TAKE ONE TABLET BY MOUTH THREE TIMES A DAY NEEDED FOR PAIN CAUTION: DO NOT EXCEED 4000MG/DAY TOTAL OF ACETAMINOPHEN (APAP) FROM ALL MEDS 90 May 08, 2019 [id number] Apr 08, 2019 [facility] [place] [facility] HYDROCODONE 10MG/ACETAMINOPHEN 325MG TAB Discontinued TAKE ONE TABLET BY MOUTH THREE TIMES A DAY NEEDED FOR PAIN CAUTION: DO NOT EXCEED 4000MG/DAY TOTAL OF ACETAMINOPHEN (APAP) FROM ALL MEDS 90 Mar 28, 2019 [id number] Feb 26, 2019 [facility] [place] [facility] HYDROCODONE 10MG/ACETAMINOPHEN 325MG TAB Discontinued TAKE ONE TABLET BY MOUTH THREE TIMES A DAY NEEDED FOR PAIN CAUTION: DO NOT EXCEED 4000MG/DAY TOTAL OF ACETAMINOPHEN (APAP) FROM ALL MEDS 90 Feb 06, 2019 [id number] Jan 07, 2019 [facility] [place] [facility] HYDROCODONE 10MG/ACETAMINOPHEN 325MG TAB Discontinued TAKE ONE TABLET BY MOUTH THREE TIMES A DAY NEEDED FOR PAIN CAUTION: DO NOT EXCEED 4000MG/DAY TOTAL OF ACETAMINOPHEN (APAP) FROM ALL MEDS 90 Dec 05, 2018 [id number] November 05, 2018 [facility] [place] [facility] HYDROCODONE 10MG/ACETAMINOPHEN 325MG TAB Discontinued TAKE ONE TABLET BY MOUTH THREE TIMES A DAY NEEDED FOR PAIN CAUTION: DO NOT EXCEED 4000MG/DAY TOTAL OF ACETAMINOPHEN (APAP) FROM ALL MEDS 90 October 25, 2018 [id number] Sep 25, 2018 [facility] [place] [facility] HYDROCODONE 10MG/ACETAMINOPHEN 325MG TAB TAKE ONE TABLET (10/325MG) BY MOUTH THREE TIMES A DAY NEEDED FOR PAIN CAUTION: DO NOT EXCEED 4000MG/DAY TOTAL OF ACETAMINOPHEN (APAP) FROM ALL MEDS 90 November 16, 2019 [id number] October 18, 2019 TARIQKOURTNEY [facility] METHOTREXATE NA 2.5MG TAB Active TAKE SEVEN TABLETS BY MOUTH EVERY WEEK 90 October 17, 2020 [id number] November 04, 2019 [facility] METHOTREXATE NA 2.5MG TAB Discontinued TAKE SEVEN TABLETS BY MOUTH EVERY WEEK 90 May 09, 2020 [id number] Aug 16, 2019 NASH KULKARNI [facility] METHOTREXATE NA 2.5MG TAB Discontinued TAKE SEVEN TABLETS BY MOUTH EVERY WEEK 90 Aug 04, 2019 [id number] Feb 22, 2019 YOU GOMEZ [facility] [place] [facility] NORTRIPTYLINE HCL 10MG CAP Active TAKE 2 CAPSULES BY MO UTH AT BEDTIME NEEDED 120 Apr 02, 2020 [id number] Nov 20, 2019 [facility] [place] [facility] NORTRIPTYLINE HCL 10MG CAP Discontinued TAKE 2 CAPSUL ES BY MOUTH AT BEDTIME NEEDED 120 Mar 20, 2019 [id number] Jan 23, 2019 [facility] OMEPRAZOLE 20MG CAP,EC Active TAKE 1 CAPSULE BY MOUTH EVERY MORNING TO LOWER STOMACH ACID. TAKE 30 MINUTES PRIOR TO FOOD. 90 October 17, 2020 [id number] October 21, 2019 [facility] OMEPRAZOLE 20MG CAP,EC Discontinued TAKE 1 CAPSULE BY MOUTH EVERY MORNING TO LOWER STOMACH ACID. TAKE 30 MINUTES PRIOR TO FOOD. 90 Oct 02, 2019 [id number] Aug 02, 2019 [facility] [place] [facility] PREDNISONE 1MG TAB Discontinued TAKE THREE TABLETS B Y MOUTH ONCE A DAY FOR INFLAMMATION AND IMMUNE RESPONSE. TAKE WITH FOOD OR MILK. 270 Fe b 2019 [id number] Apr 24, 2019 [facility] PREDNISONE 1MG TAB Discontinued TAKE FOUR TABLETS BY MOUTH ONCE A D AY 360 Apr 22, 2019 [id number] Jan 24, 2019 [facility] [place] [facility] PREDNISONE 1MG TAB Discontinued TAKE FOUR TABLETS BY MOUTH ONCE A D AY 360 Dec 29, 2018 [id number] Oct 01, 2018 NASH KULKARNI [facility] PREDNISONE 1MG TAB TAKE THREE TABLETS B Y MOUTH ONCE A DAY FOR INFLAMMATION AND IMMUNE RESPONSE. TAKE WITH FOOD OR MILK. 270 Ap r 2019 [id number] Jul 13, 2019 [facility] [facility] PREDNISONE 5MG TAB Discontinued TAKE ONE TABLET BY MOUTH ONCE A DAY WITH FOOD 60 Aug 01, 2019 [id number] Sep 25, 2018 KOURTNEY POTTER [facility] ROPINIR[facility]LE HCL 1MG TAB Active TAKE ONE TABLET BY MOUTH AT BED TIME 90 October 17, 2020 [id number] Nov 25, 2019 KOURTNEY POTTER [facility] ROPINIROLE HCL 1MG TAB Discontinued TAKE ONE TABLET BY MOUTH AT BED TIME 90 Dec 05, 2019 [id number] Sep 03, 2019 KRYSTAL DEJESUS [facility] [place] [facility] ROPINIROLE HCL 1MG TAB Discontinued TAKE ONE TABLET BY MOUTH AT BED TIME 90 Dec 13, 2018 [id number] Sep 12, 2018 [facility] [place] [facility] TAMSULOSIN HCL 0.4MG CAP Active: Susp TAKE 1 CAPSULE BY MOUTH ONCE A DAY FOR PROSTATE. TAKE AT THE SAME TIME EACH DAY WITH FOOD. 90 Sep 30 1 [id number] Dec 20, 2019 TARIQ,DANA [facility] [place] [facility] TAMSULOSIN HCL 0.4MG CAP Discontinued TAKE 1 CAPSULE BY MOUTH ONCE A DAY FOR PROSTATE. TAKE AT THE SAME TIME EACH DAY WITH FOOD. 90 Sep 12 0 [id number] Jun 24, 2019 KYLE BRUCETHIA [facility] [place] [facility] Problems (Conditions): All historical and [...] ent(s) Provider Source Abnormal radiologic density Active [id number] [facility] [place] [facility] Allergic rhinitis Active 92542686 LADY SALAZAR [facility] [place] [facility] Anemia Active 222729994 [facility] [place] [facility] Chest pain (SNOMED CT 75034781) Active 786.50 [facility] [place] [facility] Chondrocalcinosis Active [id number] YOU GOMEZ [facility] [place] [facility] Chronic obstructive lung disease Active 62662339 [facility] [place] [facility] Coronary artery disease Active 62262352 Angella LINDSEY NICHOLAS Pope [facility] [place] [facility] Cough Active 63250479 LADY SALAZAR [facility] [place] [facility] Cough (SNOMED CT 55187971) Active 786.2 KOURTNEY BARRON [facility] [place] [facility] Dysarthria (SNOMED CT 9279138) Active 784.51 M KOURTNEY WONG [facility] [place] [facility] Dyspnea (SNOMED CT 001769250) Active 786.09 KOURTNEY BARKSDALE [facility] [place] [facility] Eruption due to drug Active 82963589 Abdiaziz POTTER TORY [facility] [place] [facility] Gastroesophageal reflux disease Active 488303585 KOURTNEY POTTER [facility] [place] [facility] Hallux valgus AND bunion Active 178982318 ALEXANDRO DEISY Dangelo [facility] [place] [facility] Joint pain (SNOMED CT 44334396) Active 719.40 DEISY CONTRERAS Royce [facility] [place] [facility] Joint swelling (SNOMED CT 111010157) Active 719.00 KOURTNEY POTTER [facility] [place] [facility] Knee pain Active 40579439 ROSALIAJENNIFER [facility] [place] [facility] Muscle weakness (SNOMED CT 59726074) Active 728.87 KOURTNEY POTTER [facility] [place] [facility] Neuropathy Active 199484632 TARIQKOURTNEY DAKSHAChad [facility] [place] [facility] Osteoarthritis Active 715.36 DYAN SERVIN [facility] [place] [facility] Parkinson's disease Active 69253005 ETHAN POTTER [facility] [place] [facility] Peripheral Neuropathy Active 356.9 DASARAJU,P URUSHOTHAMA [facility] [place] Personal History of Exposure to Agent [place] Active V15.89 DEISY CONTRERAS Royce [facility] [place] [facility] Polyp of colon (SNOMED CT 78067613) Active 211.3 TARIQKOURTNEY SMITH [facility] [place] [facility] Restless legs Active 48178978 PATRICK WHITE [facility] [place] [facility] Rheumatoid arthritis Active 12044024 Abdiaziz POTTER [facility] [place] [facility] Screening, Malignancy Active V76.89 LISSETH TOLEDO [facility] [place] [facility] Sleep apnea Active 33252707 KOURTNEY POTTER KEIKO KAUFMAN [facility] [place] [facility] Synovial cyst of popliteal space (SNOMED CT 78563570) Active 727.51 KOURTNEY POTTER [facility] [place] [facility] Tobacco dependence in remission Active 157722699 KOURTNEY POTTER [facility] [place] [facility] Tobacco use Active 293136596 ROSALIAJENNIFER CROOKS CAROLYN [facility] [place] [facility] Tremor Active 46536393 JENNIFER LINDSEY K S [facility] [place] [facility] Unresolved Active 73884801 JENNIFER LINDSEY Toshia CROOKSER N [facility] [place] [facility] Unresolved Active 68881954 JENNIFER LINDSEY Toshia CHEUNG N [facility] [place] [facility] Radiology Reports: +/- 30 days of the encounter No Data Provided for This Section Pathology Reports: +/- 30 days of the encounter No Data Provided for This Section Encounter Notes: All associated encounter notes This section contains the clinical notes associated to the Encounter. Date/Time Encounter Note(s) Provider Source Jun 24, 2019 01:47 PM PRIMARY CARE SECURE MESSAGIN G: [facility] TITLE: PRIMARY CARE SECURE MESSAGING DATE OF NOTE: JUN 24, 2019@13:47:20 ENTRY DATE: JUN 24, 2019@12:47:20 AUTHOR: JENNIFER LINDSEY EXP COSIGNER: URGENCY: STATUS: COMPLETED ------Original Message ------ Sent: 06/24/2019 11:31 AM From: CARLOS ROMANO [facility] Samantha Summers [place] Subject: Medication Inquiry please order the following, hydrocodone, prednisone, and carbidopa 25/ levodopa 100 mg, be advised i will be out of the last med by the end of the week. ------Original Message ------ Sent: 06/24/2019 01:47 PM From: JENNIFER LINDSEY To: CARLOS ROMANO Subject: Medication Inquiry Forwarding to Kourtney /edil LINDSEY LPN Signed: 06/24/2019 12:47 Receipt Acknowledged By: 06/26/2019 12:47 /sofya/ KOURTNEY LINDSEYJENNIFER LUU [facility]
--- OUTSIDE RECORDS SUMMARY | 2019-12-04 22:03 | XMS REPORT | Encounter Summary ---
Author Author [facility] CARLOS sweeney Organization Department of [facility] Address [address] [place] [phone] Phone Unavailable Care Team Providers Care Tire Layer Name Role Phone TARIQKJ PCP Unavailable Insurance [...] PLAN G MEDICARE SUPPLEMENT Dec PLAN G [id number] [phone] ROSALINACARLOS PATIENT MEDICARE (WNR) MEDICARE (M) PART A Dec 16, 2014 PART A [id number] [phone] ROSALINACARLOS PATIENT MEDICARE (WNR) MEDICARE (M) PART B Dec 16, 2014 PART B [id number] [phone] CARLOS ROMANO PATIENT MEDICO DENTAL INSURANCE DENTAL VISIONHEARING Dec 16, 2014 DENTAL VISIONHEAR [id number] [phone] CARLOS ROMANO PATIENT Selected Encounter This section includes the information on record at [place] for the Encounter. Date/Time Encounter Type Encounter Description Reason Provider Source Apr 24, 2019 12:00 AM Outpatient Encounter EVENT (HISTORICAL) [facility] Encounter Template Text not used by [place] Assessments - Encounter Diagnoses No Data Provided for This Section Plan of Treatment: Future Appointments (+ 6 months) and Future Tests (+/- 45 day s) The Plan of Treatment section includes future care activities for the [facility]. This section includes future appointments and fu ture orders which are active, pending or scheduled. Future Appointments This section includes appointments that were scheduled t o occur 6 months from the date of the Encounter, up to a maximum of 20 appointme nts. The data comes from all [facility]. Appointment Date/Time Appointment Type Appointment Facili ty Name May 29, 2019 09:00 AM AMBULATORY - NONE [facility] [place] Aug 06, 2019 01:00 PM AMBULATORY - MEDICINE [facility] October 17, 2019 09:00 AM AMBULATORY - MEDICINE [facility] Active, Pending, and Scheduled Orders This [...] the Encounter. The data comes from all [facility]. Test Date/Time Test Type Test Details Facility Name Apr 02, 2019 12:00 AM Laboratory - Chemistry Order COMPREHEN SIVE METABOLIC PANEL GREEN TOP TUBE PLASMA [facility] Apr 02, 2019 12:00 AM Laboratory - Chemistry Order CBC & DIF F 5 ML LAVENDER TOP BLOOD [facility] Apr 02, 2019 12:00 AM Laboratory - Chemistry Order C-REACTIV E PROTEIN SST GEL SERUM [facility] Apr 02, 2019 10:11 AM Laboratory - Chemistry Order ERYTHROCY TE SEDIMENTATION RATE 5 ML LAVENDER TOP B[facility]OD [facility] Surgical Procedures: All associated to the encounter No Data Provided for This Section Lab Results: +/- 30 days of the encounter This section includes the Chemistry and Hematology Lab R esults on record with [place] for the patient. Radiology Reports and Pathology Report s are provided separately, in subsequent sections. Lab Results This section contains the Chemistry/Hematology Results juan t were resulted 30 days before or 30 days after the date of the Encounter. Date/Time Source Result Type Result - Unit Interpretation Reference Range Comment Apr 02, 2019 10:11 AM [facility] LIPID PROFILE(HDL,TRI G,CHOL,LDL) Specimen Type: PLASMA No comment entered. CHOLESTEROL 170 mg/dL 0-200 TRIGS 85 mg/dL 0-150 HDL-CHOLESTEROL 64 mg/dL >40 LDL (CALC) 89.0 mg/dL 0-99.9 Apr 02, 2019 10:11 AM [facility] TSH Specimen Type: SERUM No comment entered. TSH 0.94 uIU/mL 0.47-5.00 Apr 02, 2019 10:11 AM [facility] PROSTATIC SPECIFIC AN TIGEN(TOTAL) Specimen Type: SERUM No comment entered. PROSTATIC SPECIFIC ANTIGEN(TOTAL) 1.73 ng/mL 0-4 Apr 02, 2019 10:11 AM [facility] URINALYSIS Specimen Type: URINE No comment entered. URINE COLOR Yellow SPECIFIC GRAVITY 1.010 1.005-1.030 UROBILINOGEN Negative mg/dL 0.1-1.0 URINE BILIRUBIN Negative Negative URINE KETONES Negative mg/dl Negative URINE GLUCOSE Negative mg/dL Negative URINE PROTEIN Negative mg/dl Negative-Tr juliana URINE PH 8.0 5-8 APPEARANCE,URINE Clear Clear URINE BLOOD Negative Negative URINE NITRITE Negative Negative LEUKOCYTE ESTERASE Negative Negative Apr 02, 2019 10:11 AM [facility] DRUGS OF ABUSE SCREEN Specimen Type: URINE No comment entered. AMPHETAMINE NEG Negative BARBITURATES NEG Negative BENZODIAZEPINES NEG Negative CANNABINOIDS NEG Negative COCAINE NEG Negative OPIATES >1000POS Negative PHENCYCLIDINE(PCP) NEG Negative *CREATININE,DRUG SCR 45.00 mg/dL METHADONE(UDS) NEG Negative OXYCODONE (URINE) NEG Negative ALCOHOL-URINE,RANDOM (MARCO,WI,EK) NEG mg/dL <10 Apr 02, 2019 10:11 AM [facility] HEMOGLOBIN A1C Specimen Type: BLOOD No comment entered. HEMOGLOBIN A1C 5.8 % 4.0-6.0 Apr 02, 2019 10:11 AM [facility]UE [facility]ON [facility] CBC & DIFF Specimen Type: BLOOD [...] Apr 02, 2019 10:11 AM [facility]UE MORE[facility]ON [facility] COMPREHENSIVE METABOLI C PANEL Specimen Type: [...] Apr 02, 2019 10:11 AM BLUE MORE[facility]ON [facility] C-REACTIVE PROTEIN Specimen Type: SERUM No [...] Adverse Reactions (ADR s) on record with [place] for the patient. The data comes from a ll [place] treatment facilities. It does not list Allergies/ADRs that were removed or entered in error. Some allergies/ADRs may be reported in t he Immunization section. Allergen Event Date Event Type Reaction(s) Severity Source PANTOPRAZOLE Oct 01, 2018 Propensity to adverse reactions to drug (disorder) Eruption [facility], [facility] 15 [place] Jul 17, 2012 Propensity to adverse reactions to drug (disorder) [facility] Medications: VA dispensed (-15 months) and Non-VA Documented (Obtained Outside V A) Section Date Range: 1) prescriptions processed by a VA pharmacy in the last 15 m [facility], and 2) all medications recorded in the [place] medical record as "non-VA medic ations". Pharmacy terms refer to [place] pharmacy's work on prescriptions. VA patient s are advised to take their medications as instructed by their health care team. The data comes from all [place] treatment facilities. Glossary of Pharmacy Terms:Active = A prescription that can be filled at the local [place] pharmacy.Active: On Hold = An active prescription that will not be filled until pharmacy resolves the issue.Active: Susp = An active prescription that is not scheduled to be filled yet.Clinic Order = A medication received during a visit to a [place] clinic or emergency department (currently not available).Discontinued [...] FOR INHALATION ONCE 1 Nov 16, 2018 [id number] October 17, 2018 KJ POTTER [facility] ALBUTEROL SO4 90MCG/ACTUAT (CFC-F) INHL,ORAL,6.7GM Active INHALE 2 PUFFS BY ORAL INHALATION FOUR TIMES A DAY NEEDED - RINSE MOUTHPIECE FREQUENTLY TO PREVENT CLOGGING 1 Apr 24, 2020 [id number] October 18, 2019 KJ POTTER [facility] ALBUTEROL SO4 90MCG/ACTUAT (CFC-F) INHL,ORAL,6.7GM Discontin ued INHALE 2 PUFFS BY ORAL INHALATION FOUR TIMES A DAY NEEDED - RINSE MOUTHPIECE FREQUENTLY TO PREVENT CLOGGING 2 Apr 24, 2020 [id number] Apr 24, 2019 KJ P[facility] BUDESONIDE 160MCG/FORMOTEROL FUM 4.5MCG/SPRAY INHL,ORAL,10.2 GM Active INHALE 2 PUFFS BY ORAL INHALATION TWO TIMES A DAY FOR BREATHING. SHAKE WELL. RINSE MOUTH AND SPIT AFTER EACH USE. 2 Apr 24, 2020 [id number] October 17, 2019 KJ JOSHI [facility] CALCIUM 500MG (CA CARBONATE-1.25GM) TAB Active: Susp TAKE ONE TABLET BY MOUTH TWO TIMES A DAY 180 Nov 20, 2020 [id number] Jan 09, 2020 KJ POTTER [facility] CALCIUM 500MG (CA CARBONATE-1.25GM) TAB Discontinued TAKE ONE TABLET BY MOUTH TWO TIMES A DAY 180 Jan 08, 2020 [id number] October 21, 2019 KJ POTTER [facility] [place] CALCIUM 500MG (CA CARBONATE-1.25GM) TAB Discontinued TAKE ONE TABLET BY MOUTH TWO TIMES A DAY 180 Dec 29, 2018 [id number] Oct 01, 2018 NASH KULKARNI [facility] CARBIDOPA 25MG/LEVODOPA 100MG TAB Active TAKE 2 TABLETS BY MOUTH FOUR TIMES A DAY FOR PARKINSON'S DISEASE. DO NOT TAKE WITH FOOD. 240 Nov 24, 2020 [id number] Nov 27, 2019 [facility]LY [facility] [place] CARBIDOPA 25MG/LEVODOPA 100MG TAB Discontinued TAKE T WO TABLETS BY MOUTH FIVE TIMES DAILY FOR PARKINSON'S DISEASE. DO NOT TAKE WITH FOOD. 600 Jul 02, 2020 [id number] Nov 19, 2019 [facility] [place] [facility] CARBIDOPA 25MG/LEVODOPA 100MG TAB Discontinued TAKE 2 TABLETS BY MOUTH FIVE TIMES DAILY FOR PARKINSON'S DISEASE. DO NOT TAKE WITH FOOD. 300 Jun 30, 2020 [id number] Jul 01, 2019 [facility] CARBIDOPA 25MG/LEVODOPA 100MG TAB Discontinued TAKE 2 TABLETS BY MOUTH FOUR TIMES A DAY FOR PARKINSON'S DISEASE. DO NOT TAKE WITH FOOD. 240 Jun 24, 2020 [id number] Jun 26, 2019 [facility] CARBIDOPA 25MG/LEVODOPA 100MG TAB Discontinued TAKE 2 TABLETS BY MOUTH FOUR TIMES A DAY FOR PARKINSON'S DISEASE. DO NOT TAKE WITH FOOD. 240 Dec 25, 2019 [id number] May 15, 2019 [facility] DIV CARBIDOPA 25MG/LEVODOPA 100MG TAB Discontinued TAKE 2 TABLETS BY MOUTH FOUR TIMES A DAY FOR PARKINSON'S DISEASE. DO NOT TAKE WITH FOOD. 240 Jun 07, 2019 [id number] Nov 18, 2018 [facility] CHOLECALCIFEROL 25MCG (1,000UNIT) TAB Active: Susp TA KE TWO TABLETS BY MOUTH ONCE A DAY FOR VITAMIN D DEFICIENCY 200 Nov 20, [id number] Dec [address] [facility] CHOLECALCIFEROL 25MCG (1,000UNIT) TAB Discontinued TA KE TWO TABLETS BY MOUTH ONCE A DAY FOR VITAMIN D DEFICIENCY 200 Dec 25, 2019 [id number] October [facility] CHOLECALCIFEROL 25MCG (1,000UNIT) TAB Discontinued TA KE TWO TABLETS BY MOUTH ONCE A DAY FOR VITAMIN D DEFICIENCY 200 Oct 10, [id number] [facility] CLOPIDOGREL BISULFATE 75MG TAB Active: Susp TAKE ONE TABLET BY MOUTH ONCE A DAY TO PREVENT BLOOD CLOTS 90 Apr 24, 2020 [id number] Dec 19, 2019 [facility] CLOPIDOGREL BISULFATE 75MG TAB Discontinued TAKE ONE TABLET BY MOUTH ONCE A DAY TO PREVENT BLOOD CLOTS 90 Jun 01, 2019 [id number] Mar 13, 2019 TARIQ, [facility] [place] DIPHENHYDRAMINE HCL 25MG CAP Non-VA TAKE 1 CAPSULE BY MOUTH EVERY 6 HOURS NEEDED Non-VA Documented by: KJ POTTER nted at: [facility] FLUDROCORTISONE ACETATE 0.1MG TAB Active TAKE ONE TABLET BY M OUTH ONCE A DAY 90 Nov 19, 2020 [id number] Nov 20, 2019 [facility] [place] FOLIC ACID 1MG TAB Non- VA TAKE ONE TABLET BY MOUTH ONCE A DAY N on-VA Documented by: KJ POTTER nted at: [facility] GABAPENTIN 300MG CAP Active TAKE 1 CAPSULE BY M OUTH 5 TIMES A DAY FOR PAIN AND TREMORS. 300 October 17, 2020 [id number] October 18, 2019 [facility] GABAPENTIN 300MG CAP Discontinued TAKE ONE CAPSULE BY MOUTH FOUR TIMES A DAY FOR PAIN AND TREMORS. 240 Jan 08, 2020 [id number] Oct 14, 2019 [facility] [place] GABAPENTIN 300MG CAP Discontinued TAKE ONE CAPSULE BY MOUTH FOUR TIMES A DAY FOR PAIN AND TREMORS. 240 Mar 08, 2019 [id number] Jan 07, 2019 [facility] [place] HYDROCODONE 10MG/ACETAMINOPHEN 325MG TAB Active TAKE ONE TABLET (10/325MG) BY MOUTH THREE TIMES A DAY NEEDED FOR PAIN CAUTION: DO NOT EXCEED 4000MG/DAY TOTAL OF ACETAMINOPHEN (APAP) FROM ALL MEDS 90 Dec 20, 2019 [id number] Nov 21, 2019 [facility] HYDROCODONE 10MG/ACETAMINOPHEN 325MG TAB Discontinued TAKE ONE TABLET (10/325MG) BY MOUTH THREE TIMES A DAY NEEDED FOR PAIN CAUTION: DO NOT EXCEED 4000MG/DAY TOTAL OF ACETAMINOPHEN (APAP) FROM ALL MEDS 90 Sep 17, 2 020 [id number] Sep 04, 2019 [facility] [place] HYDROCODONE 10MG/ACETAMINOPHEN 325MG TAB Discontinued TAKE ONE TABLET BY MOUTH THREE TIMES A DAY NEEDED FOR PAIN CAUTION: DO NOT EXCEED 4000MG/DAY TOTAL OF ACETAMINOPHEN (APAP) FROM ALL MEDS 90 Jul 26, 2019 [id number] Jun 26, 2019 [facility] [place] HYDROCODONE 10MG/ACETAMINOPHEN 325MG TAB Discontinued TAKE ONE TABLET BY MOUTH THREE TIMES A DAY NEEDED FOR PAIN CAUTION: DO NOT EXCEED 4000MG/DAY TOTAL OF ACETAMINOPHEN (APAP) FROM ALL MEDS 90 Jun 27, 2019 [id number] May 29, 2019 [facility] HYDROCODONE 10MG/ACETAMINOPHEN 325MG TAB Discontinued TAKE ONE TABLET BY MOUTH THREE TIMES A DAY NEEDED FOR PAIN CAUTION: DO NOT EXCEED 4000MG/DAY TOTAL OF ACETAMINOPHEN (APAP) FROM ALL MEDS 90 May 08, 2019 [id number] Apr 08, 2019 [facility] [place] HYDROCODONE 10MG/ACETAMINOPHEN 325MG TAB Discontinued TAKE ONE TABLET BY MOUTH THREE TIMES A DAY NEEDED FOR PAIN CAUTION: DO NOT EXCEED 4000MG/DAY TOTAL OF ACETAMINOPHEN (APAP) FROM ALL MEDS 90 Mar 28, 2019 [id number] Feb 26, 2019 ATRIQ,[facility] HYDROCODONE 10MG/ACETAMINOPHEN 325MG TAB Discontinued TAKE ONE TABLET BY MOUTH THREE TIMES A DAY NEEDED FOR PAIN CAUTION: DO NOT EXCEED 4000MG/DAY TOTAL OF ACETAMINOPHEN (APAP) FROM ALL MEDS 90 Feb 06, 2019 [id number] Jan 07, 2019 [facility]RAY[facility] [place] HYDROCODONE 10MG/ACETAMINOPHEN 325MG TAB Discontinued TAKE ONE TABLET BY MOUTH THREE TIMES A DAY NEEDED FOR PAIN CAUTION: DO NOT EXCEED 4000MG/DAY TOTAL OF ACETAMINOPHEN (APAP) FROM ALL MEDS 90 Dec 05, 2018 [id number] November 05, 2018 [facility]RAY[facility] HYDR[facility] 10MG/ACETAMINOPHEN 325MG TAB Discontinued TAKE ONE TABLET BY MOUTH THREE TIMES A DAY NEEDED FOR PAIN CAUTION: DO NOT EXCEED 4000MG/DAY TOTAL OF ACETAMINOPHEN (APAP) FROM ALL MEDS 90 October 25, 2018 [id number] Sep 25, 2018 TARIQ[facility] HYDROCODONE 10MG/ACETAMINOPHEN 325MG TAB TAKE ONE TABLET (10/325MG) BY MOUTH THREE TIMES A DAY NEEDED FOR PAIN CAUTION: DO NOT EXCEED 4000MG/DAY TOTAL OF ACETAMINOPHEN (APAP) FROM ALL MEDS 90 November 16, 2019 [id number] October 18, 2019 TARIQKJ SMITH [facility] METHOTREXATE NA 2.5MG TAB Active TAKE SEVEN TABLETS BY MOUTH EVERY WEEK October 17, 2020 [id number] November 04, 2019 [facility] METHOTREXATE NA 2.5MG TAB Discontinued TAKE SEVEN TABLETS BY MOUTH EVERY WEEK 90 May 09, 2020 [id number] Aug 16, 2019 NASH KULKARNI [facility] METHOTREXATE NA 2.5MG TAB Discontinued TAKE SEVEN TABLETS BY MOUTH EVERY WEEK 90 Aug 04, 2019 [id number] Feb 22, 2019 YOU GOMEZ [facility] [place] NORTRIPTYLINE HCL 10MG CAP Active TAKE 2 CAPSULES BY MO UTH AT BEDTIME NEEDED 120 Apr 02, 2020 [id number] Nov 20, 2019 [facility] [place] NORTRIPTYLINE HCL 10MG CAP Discontinued TAKE 2 CAPSUL ES BY MOUTH AT BEDTIME NEEDED 120 Mar 20, 2019 [id number] Jan 23, 2019 [facility] OMEPRAZOLE 20MG CAP,EC Active TAKE 1 CAPSULE BY MOUTH EVERY MORNING TO LOWER STOMACH ACID. TAKE 30 MINUTES PRIOR TO FOOD. 90 October 17, 2020 [id number] October 21, 2019 [facility] OMEPRAZOLE 20MG CAP,EC Discontinued TAKE 1 CAPSULE BY MOUTH EVERY MORNING TO LOWER STOMACH ACID. TAKE 30 MINUTES PRIOR TO FOOD. 90 Oct 02, 2019 [id number] Aug 02, 2019 [facility] [place] PREDNISONE 1MG TAB Discontinued TAKE THREE TABLETS B Y MOUTH ONCE A DAY FOR INFLAMMATION AND IMMUNE RESPONSE. TAKE WITH FOOD OR MILK. 270 Fe 2019 [id number] Apr 24, 2019 [facility] PREDNISONE 1MG TAB Discontinued TAKE FOUR TABLETS BY MOUTH ONCE A D AY 360 Apr 22, 2019 [id number] Jan 24, 2019 [facility] [place] PREDNISONE 1MG TAB Discontinued TAKE FOUR TABLETS BY MOUTH ONCE A D AY 360 Dec 29, 2018 [id number] Oct 01, 2018 NASH KULKARNI [facility] PREDNISONE 1MG TAB TAKE THREE TABLETS B Y MOUTH ONCE A DAY FOR INFLAMMATION AND IMMUNE RESPONSE. TAKE WITH FOOD OR MILK. 270 Ap r 2019 [id number] Jul 13, 2019 [facility] [place] PREDNISONE 5MG TAB Discontinued TAKE ONE TABLET BY MOUTH ONCE A DAY WITH FOOD 60 Aug 01, 2019 [id number] Sep 25, 2018 KJ POTTER [facility] [place] ROPINIROLE HCL 1MG TAB Active TAKE ONE TABLET BY MOUTH AT BED TIME 90 October 17, 2020 [id number] Nov 25, 2019 KJ POTTER [facility] ROPINIROLE HCL 1MG TAB Discontinued TAKE ONE TABLET BY MOUTH AT BED TIME 90 Dec 05, 2019 [id number] Sep 03, 2019 KRYSTAL DEJESUS [facility] [place] ROPINIROLE HCL 1MG TAB Discontinued TAKE ONE TABLET BY MOUTH AT BED TIME 90 Dec 13, 2018 [id number] Sep 12, 2018 TARIQ,DANA [facility] [place] TAMSULOSIN HCL 0.4MG CAP Active: Susp TAKE 1 CAPSULE BY MOUTH ONCE A DAY FOR PROSTATE. TAKE AT THE SAME TIME EACH DAY WITH FOOD. 90 Sep 30 1 [id number] Dec 20, 2019 TARIQ,DANA [facility] [place] TAMSULOSIN HCL 0.4MG CAP Discontinued TAKE 1 CAPSULE BY MOUTH ONCE A DAY FOR PROSTATE. TAKE AT THE SAME TIME EACH DAY WITH FOOD. 90 Sep 12 0 [id number] Jun 24, 2019 LIS BRUCE [facility] [place] Problems (Conditions): All historical and current Section Date Range: From patient's date of to the date document was create d. This section includes a list of Problems (Conditions) know n to VA for the patient. It includes both active and inacti ve problems (conditions). The data comes from all [place] treatment facilities. Problem Status Problem Code Date of Onset Date of Resolution Comm ent(s) Provider Source Abnormal radiologic density Active [id number] KJ WALKER [facility] [place] Allergic rhinitis Active [id number] MARIELADY [facility] [place] [facility] Anemia Active [id number] [facility] [place] Chest pain (SNOMED CT 21797352) Active 786.50 [facility]BAYDEN [facility] [place] Chondrocalcinosis Active [id number] YOU GOMEZ [facility] [place] Chronic obstructive lung disease Active 32409215 [facility] [place] [facility] Coronary artery disease Active [id number] Angella LINDSEY [facility] [place] Cough Active [id number] LADY SALAZAR [facility] [place] Cough (SNOMED CT 01756768) Active 786.2 KJ BARRON [facility] [place] Dysarthria (SNOMED CT 9187683) Active 784.51 M KJ WONG [facility] [place] Dyspnea (SNOMED CT 896311063) Active 786.09 KJ BARKSDALE [facility] [place] Eruption due to drug Active [id number] Abdiaziz POTTER TORY [facility] [place] Gastroesophageal reflux disease Active [id number] KJ POTTER [facility] [place] Hallux valgus AND bunion Active [id number] ALEXANDRO DangeloDEISY Crane [facility] [place] Joint pain (SNOMED CT 71168016) Active 719.40 DEISY CONTRERAS Royce [facility] [place] Joint swelling (SNOMED CT 789333230) Active 719.00 KJ POTTER [facility] [place] Knee pain Active 54601073 JENNIFER LINDSEY [facility] [place] Muscle weakness (SNOMED CT 18076401) Active 728.87 TARIQKJ [facility] [place] Neuropathy Active [id number] KJ POTTER RN [facility] [place] Osteoarthritis Active 715.36 DYAN SERVIN [facility] [place] Parkinson's disease Active [id number] ETHAN POTTER [facility] [place] Peripheral Neuropathy Active 356.9 DASARAJU,P [facility] [place] Personal History of Exposure to Agent Brandon Active V15.89 DEISY CONTRERAS Royce [facility] [place] [facility] Polyp of colon (SNOMED CT 12747849) Active 211.3 KJ POTTER [facility] [place] Restless legs Active 91002168 PATRICK WHITE [facility] [place] Rheumatoid arthritis Active 57261902 Abdiaziz POTTER [facility] [place] [facility] Screening, Malignancy Active V76.89 LISSETH TOLEDO [facility] [place] Sleep apnea Active 40580298 KJ POTTER RN [facility] [place] Synovial cyst of popliteal space (SNOMED CT 97627309) Active 727.51 KJ POTTER [facility] [place] [facility] Tobacco dependence in remission Active [id number] TARIQKJ SMITH [facility] [place] Tobacco use Active [id number] JENNIFER LINDSEY [facility] [place] Tremor Active 64751961 JENNIFER LINDSEY K S [facility] [place] Unresolved Active [id number] JENNIFER LINDSEY [facility] [place] Unresolved Active 15222315 JENNIFER LINDSEY [facility] [place] Radiology Reports: +/- 30 days of the encounter No Data Provided for This Section Pathology Reports: +/- 30 days of the encounter No Data Provided for This Section Encounter Notes: All associated encounter notes No Data Provided for This Section
--- OUTSIDE RECORDS SUMMARY | 2019-12-04 22:03 | XMS REPORT | Encounter Summary ---
Author Author [facility] CARLOS sweeney Organization Department of [facility] Address [address] [place] [id number] Phone Unavailable Care Team Providers Care Deputy Grand Jury Name Role Phone TARIQKJ PCP Unavailable Insurance [...] PLAN G MEDICARE SUPPLEMENT Dec PLAN G [id number] [phone] ROSALINACARLOS PATIENT MEDICARE (WNR) MEDICARE (M) PART A Dec 16, 2014 PART A [id number] ROSALINACARLOS PATIENT MEDICARE (WNR) MEDICARE (M) PART B Dec 16, 2014 PART B [id number] CARLOS ROMANO PATIENT MEDICO DENTAL INSURANCE DENTAL VISIONHEARING Dec 16, 2014 DENTAL VISIONHEAR [id number] [phone] CARLOS ROMANO PATIENT Selected Encounter This section includes the information on record at [place] for the Encounter. Date/Time Encounter Type Encounter Description Reason Provider Source Apr 08, 2019 07:49 AM Outpatient Encounter PRIMARY CARE/MEDICINE JENNIFER LINDSEY [facility] IHE Encounter Template Text not used by [place] Assessments - Encounter Diagnoses No Data Provided for This Section Plan of Treatment: Future Appointments (+ 6 months) and Future Tests (+/- 45 day s) The Plan of Treatment section includes future care activities for the patient fr om all [facility] facilities. This section includes future appointments and fu ture orders which are active, pending or scheduled. Future Appointments This section includes appointments that were scheduled t o occur 6 months from the date of the Encounter, up to a maximum of 20 appointme nts. The data comes from all [facility]. Appointment Date/Time Appointment Type Appointment Facili ty Name Apr 09, 2019 01:30 PM AMBULATORY - MEDICINE [facility]ON [facility] [place] [facility] Apr 24, 2019 09:30 AM AMBULATORY - MEDICINE [facility] May 29, 2019 09:00 AM AMBULATORY - NONE [facility] [place] Aug 06, 2019 01:00 PM AMBULATORY MEDICINE [facility]UE MORE[facility]ON [facility] Active, Pending, and Scheduled Orders This [...] the Encounter. The data comes from all [facility]. Test Date/Time Test Type Test Details Facility Name Apr 02, 2019 12:00 AM Laboratory - Chemistry Order COMPREHEN SIVE METABOLIC PANEL GREEN TOP TUBE PLASMA [facility] Apr 02, 2019 12:00 AM Laboratory - Chemistry Order CBC & DIF F 5 ML LAVENDER TOP BLOOD [facility] Apr 02, 2019 12:00 AM Laboratory - Chemistry Order C-REACTIV E PROTEIN SST GEL SERUM [facility] Apr 02, 2019 10:11 AM Laboratory - Chemistry Order ERYTHROCY TE SEDIMENTATION RATE 5 ML [facility]ENDER [facility]OD [facility] Surgical Procedures: All associated to the encounter No Data Provided for This Section Lab Results: +/- 30 days of the encounter This section includes the Chemistry and Hematology Lab R esults on record with [place] for the patient. Radiology Reports and Pathology Report s are provided separately, in subsequent sections. Lab Results This section contains the Chemistry/Hematology Results juan t were resulted 30 days before or 30 days after the date of the Encounter. Date/Time Source Result Type Result - Unit Interpretation Reference Range Comment Apr 02, 2019 10:11 AM [facility] LIPID PROFILE(HDL,TRI G,CHOL,LDL) Specimen Type: PLASMA No comment entered. CHOLESTEROL 170 mg/dL 0-200 TRIGS 85 mg/dL 0-150 HDL-CHOLESTEROL 64 mg/dL >40 LDL (CALC) 89.0 mg/dL 0-99.9 Apr 02, 2019 10:11 AM [facility] TSH Specimen Type: SERUM No comment entered. TSH 0.94 uIU/mL 0.47-5.00 Apr 02, 2019 10:11 AM [facility] PROSTATIC SPECIFIC AN TIGEN(TOTAL) Specimen Type: SERUM No comment entered. PROSTATIC SPECIFIC ANTIGEN(TOTAL) 1.73 ng/mL 0-4 Apr 02, 2019 10:11 AM [facility] URINALYSIS Specimen Type: URINE No comment entered. URINE COLOR Yellow SPECIFIC GRAVITY 1.010 1.005-1.030 UROBILINOGEN Negative mg/dL 0.1-1.0 URINE BILIRUBIN Negative Negative URINE KETONES Negative mg/dl Negative URINE GLUCOSE Negative mg/dL Negative URINE PROTEIN Negative mg/dl Negative-Tr juliana URINE PH 8.0 5-8 APPEARANCE,URINE Clear Clear URINE BLOOD Negative Negative URINE NITRITE Negative Negative LEUKOCYTE ESTERASE Negative Negative Apr 02, 2019 10:11 AM [facility] DRUGS OF ABUSE SCREEN Specimen Type: URINE No comment entered. AMPHETAMINE NEG Negative BARBITURATES NEG Negative BENZODIAZEPINES NEG Negative CANNABINOIDS NEG Negative COCAINE NEG Negative OPIATES >1000POS Negative PHENCYCLIDINE(PCP) NEG Negative *CREATININE,DRUG SCR 45.00 mg/dL METHADONE(UDS) NEG Negative OXYCODONE (URINE) NEG Negative ALCOHOL-URINE,RANDOM (MARCO,WI,EK) NEG mg/dL <10 Apr 02, 2019 10:11 AM [facility] HEMOGLOBIN A1C Specimen Type: BLOOD No comment entered. HEMOGLOBIN A1C 5.8 % 4.0-6.0 Apr 02, 2019 10:11 AM [facility] CBC & DIFF Specimen Type: BLOOD [...] Apr 02, 2019 10:11 AM [facility] COMPREHENSIVE METABOLI C PANEL Specimen Type: [...] Apr 02, 2019 10:11 AM [facility] C-REACTIVE PROTEIN Specimen Type: SERUM No [...] to adverse reactions to drug (disorder) Eruption [facility] 15 [place] Jul 17, 2012 Propensity to adverse reactions to drug (disorder) Peripheral edema [facility] Medications: VA dispensed (-15 months) and Non-VA Documented (Obtained Outside A) Section Date Range: 1) prescriptions processed by a [facility] pharmacy in the last 15 m [facility], and 2) all medications recorded in [...] FOR INHALATION ONCE 1 Nov 16, 2018 [id number] October 17, 2018 KJ POTTER [facility] ALBUTEROL SO4 90MCG/ACTUAT (CFC-F) INHL,ORAL,6.7GM Active INHALE 2 PUFFS BY ORAL INHALATION FOUR TIMES A DAY NEEDED - RINSE MOUTHPIECE FREQUENTLY TO PREVENT CLOGGING 1 Apr 24, 2020 [id number] October 18, 2019 KJ POTTER [facility] ALBUTEROL SO4 90MCG/ACTUAT (CFC-F) INHL,ORAL,6.7GM Discontin ued INHALE 2 PUFFS BY ORAL INHALATION FOUR TIMES A DAY NEEDED - RINSE MOUTHPIECE FREQUENTLY TO PREVENT CLOGGING 2 Apr 24, 2020 [id number] Apr 24, 2019 KJ POTTER [facility] BUDESONIDE 160MCG/FORMOTEROL FUM 4.5MCG/SPRAY INHL,ORAL,10.2 GM Active INHALE 2 PUFFS BY ORAL INHALATION TWO TIMES A DAY FOR BREATHING. SHAKE WELL. RINSE MOUTH AND SPIT AFTER EACH USE. 2 Apr 24, 2020 [id number] October 17, 2019 KJ JOSHI [facility] CALCIUM 500MG (CA CARBONATE-1.25GM) TAB Active: Susp TAKE ONE TABLET BY MOUTH TWO TIMES A DAY 180 Nov 20, 2020 [id number] Jan 09, 2020 KJ POTTER [facility] CALCIUM 500MG (CA CARBONATE-1.25GM) TAB Discontinued TAKE ONE TABLET BY MOUTH TWO TIMES A DAY 180 Jan 08, 2020 [id number] October 21, 2019 KJ POTTER [facility] CALCIUM 500MG (CA CARBONATE-1.25GM) TAB Discontinued TAKE ONE TABLET BY MOUTH TWO TIMES A DAY 180 Dec 29, 2018 [id number] Oct 01, 2018 NASH KULKARNI [facility] CARBIDOPA 25MG/LEVODOPA 100MG TAB Active TAKE 2 TABLETS BY MOUTH FOUR TIMES A DAY FOR PARKINSON'S DISEASE. DO NOT TAKE WITH FOOD. 240 Nov 24, 2020 [id number] Nov 27, 2019 ALLEGRA HOWE [facility] [place] [facility] CARBIDOPA 25MG/LEVODOPA 100MG TAB Discontinued TAKE T WO TABLETS BY MOUTH FIVE TIMES DAILY FOR PARKINSON'S DISEASE. DO NOT TAKE WITH FOOD. 600 Jul 02, 2020 [id number] Nov 19, 2019 [facility] [facility] CARBIDOPA 25MG/LEVODOPA 100MG TAB Discontinued TAKE 2 TABLETS BY MOUTH FIVE TIMES DAILY FOR PARKINSON'S DISEASE. DO NOT TAKE WITH FOOD. 300 Jun 30, 2020 [id number] Jul 01, 2019 [facility] [place] [facility] CARBIDOPA 25MG/LEVODOPA 100MG TAB Discontinued TAKE 2 TABLETS BY MOUTH FOUR TIMES A DAY FOR PARKINSON'S DISEASE. DO NOT TAKE WITH FOOD. 240 Jun 24, 2020 [id number] Jun 26, 2019 [facility] [facility] CARBIDOPA 25MG/LEVODOPA 100MG TAB Discontinued TAKE 2 TABLETS BY MOUTH FOUR TIMES A DAY FOR PARKINSON'S DISEASE. DO NOT TAKE WITH FOOD. 240 Dec 25, 2019 [id number] May 15, 2019 [facility] [facility] CARBIDOPA 25MG/LEVODOPA 100MG TAB Discontinued TAKE 2 TABLETS BY MOUTH FOUR TIMES A DAY FOR PARKINSON'S DISEASE. DO NOT TAKE WITH FOOD. 240 Jun 07, 2019 [id number] Nov 18, 2018 [facility] [facility] CHOLECALCIFEROL 25MCG (1,000UNIT) TAB Active: Susp TA KE TWO TABLETS BY MOUTH ONCE A DAY FOR VITAMIN D DEFICIENCY 200 Nov 20, [id number] Dec [address] [facility] CHOLECALCIFEROL 25MCG (1,000UNIT) TAB Discontinued TA KE TWO TABLETS BY MOUTH ONCE A DAY FOR VITAMIN D DEFICIENCY 200 Dec 25, 2019 [id number] October 0 2019 [facility] [place] [facility] CHOLECALCIFEROL 25MCG (1,000UNIT) TAB Discontinued TA KE TWO TABLETS BY MOUTH ONCE A DAY FOR VITAMIN D DEFICIENCY 200 Oct 10, [id number] [facility] CLOPIDOGREL BISULFATE 75MG TAB Active: Susp TAKE ONE TABLET BY MOUTH ONCE A DAY TO PREVENT BLOOD CLOTS 90 Apr 24, 2020 [id number] Dec 19, 2019 [facility] CLOPIDOGREL BISULFATE 75MG TAB Discontinued TAKE ONE TABLET BY MOUTH ONCE A DAY TO PREVENT BLOOD CLOTS 90 Jun 01, 2019 [id number] Mar 13, 2019 TARIQKJ [facility] [place] [facility] DIPHENHYDRAMINE HCL 25MG CAP Non-VA TAKE 1 CAPSULE BY MOUTH EVERY 6 HOURS NEEDED Non-VA Documented by: KJ POTTER nted at: [facility] FLUDROCORTISONE ACETATE 0.1MG TAB Active TAKE ONE TABLET BY M OUTH ONCE A DAY 90 Nov 19, 2020 [id number] Nov 20, 2019 [facility] [place] [facility] FOLIC ACID 1MG TAB Non- VA TAKE ONE TABLET BY MOUTH ONCE A DAY N on-VA Documented by: KJ POTTER nted at: [facility] GABAPENTIN 300MG CAP Active TAKE 1 CAPSULE BY M OUTH 5 TIMES A DAY FOR PAIN AND TREMORS. 300 October 17, 2020 [id number] October 18, 2019 TARIQKJ [facility] GABAPENTIN 300MG CAP Discontinued TAKE ONE CAPSULE BY MOUTH FOUR TIMES A DAY FOR PAIN AND TREMORS. 240 Jan 08, 2020 [id number] Oct 14, 2019 [facility] [place] [facility] GABAPENTIN 300MG CAP Discontinued TAKE ONE CAPSULE BY MOUTH FOUR TIMES A DAY FOR PAIN AND TREMORS. 240 Mar 08, 2019 [id number] Jan 07, 2019 [facility] [place] [facility] HYDROCODONE 10MG/ACETAMINOPHEN 325MG TAB Active TAKE ONE TABLET (10/325MG) BY MOUTH THREE TIMES A DAY NEEDED FOR PAIN CAUTION: DO NOT EXCEED 4000MG/DAY TOTAL OF ACETAMINOPHEN (APAP) FROM ALL MEDS 90 Dec 20, 2019 [id number] Nov 21, 2019 [facility] HYDROCODONE 10MG/ACETAMINOPHEN 325MG TAB Discontinued TAKE ONE TABLET (10/325MG) BY MOUTH THREE TIMES A DAY NEEDED FOR PAIN CAUTION: DO NOT EXCEED 4000MG/DAY TOTAL OF ACETAMINOPHEN (APAP) FROM ALL MEDS 90 Sep 17, 2 020 [id number] Sep 04, 2019 [facility] [place] [facility] HYDROCODONE 10MG/ACETAMINOPHEN 325MG TAB Discontinued TAKE ONE TABLET BY MOUTH THREE TIMES A DAY NEEDED FOR PAIN CAUTION: DO NOT EXCEED 4000MG/DAY TOTAL OF ACETAMINOPHEN (APAP) FROM ALL MEDS 90 Jul 26, 2019 [id number] Jun 26, 2019 [facility] [place] [facility] HYDROCODONE 10MG/ACETAMINOPHEN 325MG TAB Discontinued TAKE ONE TABLET BY MOUTH THREE TIMES A DAY NEEDED FOR PAIN CAUTION: DO NOT EXCEED 4000MG/DAY TOTAL OF ACETAMINOPHEN (APAP) FROM ALL MEDS 90 Jun 27, 2019 [id number] May 29, 2019 [facility] [place] [facility] HYDROCODONE 10MG/ACETAMINOPHEN 325MG TAB Discontinued TAKE ONE TABLET BY MOUTH THREE TIMES A DAY NEEDED FOR PAIN CAUTION: DO NOT EXCEED 4000MG/DAY TOTAL OF ACETAMINOPHEN (APAP) FROM ALL MEDS 90 May 08, 2019 [id number] Apr 08, 2019 TARIQ,[facility] [place] [facility] HYDROCODONE 10MG/ACETAMINOPHEN 325MG TAB Discontinued TAKE ONE TABLET BY MOUTH THREE TIMES A DAY NEEDED FOR PAIN CAUTION: DO NOT EXCEED 4000MG/DAY TOTAL OF ACETAMINOPHEN (APAP) FROM ALL MEDS 90 Mar 28, 2019 [id number] Feb 26, 2019 [facility] [place] [facility] HYDROCODONE 10MG/ACETAMINOPHEN 325MG TAB Discontinued TAKE ONE TABLET BY MOUTH THREE TIMES A DAY NEEDED FOR PAIN CAUTION: DO NOT EXCEED 4000MG/DAY TOTAL OF ACETAMINOPHEN (APAP) FROM ALL MEDS 90 Feb 06, 2019 [id number] Jan 07, 2019 [facility] [place] [facility] HYDROCODONE 10MG/ACETAMINOPHEN 325MG TAB Discontinued TAKE ONE TABLET BY MOUTH THREE TIMES A DAY NEEDED FOR PAIN CAUTION: DO NOT EXCEED 4000MG/DAY TOTAL OF ACETAMINOPHEN (APAP) FROM ALL MEDS 90 Dec 05, 2018 [id number] November 05, 2018 [facility] [place] [facility] HYDROCODONE 10MG/ACETAMINOPHEN 325MG TAB Discontinued TAKE ONE TABLET BY MOUTH THREE TIMES A DAY NEEDED FOR PAIN CAUTION: DO NOT EXCEED 4000MG/DAY TOTAL OF ACETAMINOPHEN (APAP) FROM ALL MEDS 90 October 25, 2018 [id number] Sep 25, 2018 [facility] [place] [facility] HYDROCODONE 10MG/ACETAMINOPHEN 325MG TAB TAKE ONE TABLET (10/325MG) BY MOUTH THREE TIMES A DAY NEEDED FOR PAIN CAUTION: DO NOT EXCEED 4000MG/DAY TOTAL OF ACETAMINOPHEN (APAP) FROM ALL MEDS 90 November 16, 2019 [id number] October 18, 2019 [facility] METHOTREXATE NA 2.5MG TAB Active TAKE SEVEN TABLETS BY MOUTH EVERY WEEK 90 October 17, 2020 [id number] November 04, 2019 [facility] METHOTREXATE NA 2.5MG TAB Discontinued TAKE SEVEN TABLETS BY MOUTH EVERY WEEK 90 May 09, 2020 [id number] Aug 16, 2019 NASH KULKARNI [facility] METHOTREXATE NA 2.5MG TAB Discontinued TAKE SEVEN TABLETS BY MOUTH EVERY WEEK 90 Aug 04, 2019 [id number] Feb 22, 2019 YOU GOMEZ [facility] [place] [facility] NORTRIPTYLINE HCL 10MG CAP Active TAKE 2 CAPSULES BY MO UTH AT BEDTIME NEEDED 120 Apr 02, 2020 [id number] Nov 20, 2019 [facility] [place] [facility] NORTRIPTYLINE HCL 10MG CAP Discontinued TAKE 2 CAPSUL ES BY MOUTH AT BEDTIME NEEDED 120 Mar 20, 2019 [id number] Jan 23, 2019 [facility] OMEPRAZOLE 20MG CAP,EC Active TAKE 1 CAPSULE BY MOUTH EVERY MORNING TO LOWER STOMACH ACID. TAKE 30 MINUTES PRIOR TO FOOD. 90 October 17, 2020 [id number] October 21, 2019 [facility] OMEPRAZOLE 20MG CAP,EC Discontinued TAKE 1 CAPSULE BY MOUTH EVERY MORNING TO LOWER STOMACH ACID. TAKE 30 MINUTES PRIOR TO FOOD. 90 Oct 02, 2019 [id number] Aug 02, 2019 [facility] [place] [facility] PREDNISONE 1MG TAB Discontinued TAKE THREE TABLETS B Y MOUTH ONCE A DAY FOR INFLAMMATION AND IMMUNE RESPONSE. TAKE WITH FOOD OR MILK. 270 Fe 2019 [id number] Apr 24, 2019 [facility] PREDNISONE 1MG TAB Discontinued TAKE FOUR TABLETS BY MOUTH ONCE A D AY 360 Apr 22, 2019 [id number] Jan 24, 2019 BLUE DAVIES [facility] [place] [facility] PREDNISONE 1MG TAB Discontinued TAKE FOUR TABLETS BY MOUTH ONCE A D AY 360 Dec 29, 2018 [id number] Oct 01, 2018 NASH KULKARNI V [facility] PREDNISONE 1MG TAB TAKE THREE TABLETS B Y MOUTH ONCE A DAY FOR INFLAMMATION AND IMMUNE RESPONSE. TAKE WITH FOOD OR MILK. 270 Ap r 2019 [id number] Jul 13, 2019 [facility] [place] [facility] PREDNISONE 5MG TAB Discontinued TAKE ONE TABLET BY MOUTH ONCE A DAY WITH FOOD 60 Aug 01, 2019 [id number] Sep 25, 2018 KJ POTTER [facility] [place] [facility] ROPINIROLE HCL 1MG TAB Active TAKE ONE TABLET BY MOUTH AT BED TIME 90 October 17, 2020 [id number] Nov 25, 2019 TARIQKJ [facility] ROPINIROLE HCL 1MG TAB Discontinued TAKE ONE TABLET BY MOUTH AT BED TIME 90 Dec 05, 2019 [id number] Sep 03, 2019 KRYSTAL DEJESUS [facility] [place] [facility] ROPINIROLE HCL 1MG TAB Discontinued TAKE ONE TABLET BY MOUTH AT BED TIME 90 Dec 13, 2018 [id number] Sep 12, 2018 TARIQ,[facility] [place] [facility] TAMSULOSIN HCL 0.4MG CAP Active: Susp TAKE 1 CAPSULE BY MOUTH ONCE A DAY FOR PROSTATE. TAKE AT THE SAME TIME EACH DAY WITH FOOD. 90 Sep 30 1 [id number] Dec 20, 2019 KJ POTTER [facility] [place] [facility] TAMSULOSIN HCL 0.4MG CAP Discontinued TAKE 1 CAPSULE BY MOUTH ONCE A DAY FOR PROSTATE. TAKE AT THE SAME TIME EACH DAY WITH FOOD. 90 Sep 12 0 [id number] Jun 24, 2019 LIS BRUCE [facility] [place] [facility] Problems (Conditions): All historical [...] ent(s) Provider Source Abnormal radiologic density Active [id number] [facility] KJ PARISI [facility] [facility] Allergic rhinitis Active [id number] LADY SALAZAR [facility] [place] [facility] Anemia Active [id number] [facility] [place] [facility] Chest pain (SNOMED CT 92118034) Active 786.50 [facility] [place] [facility] Chondrocalcinosis Active [id number] YOU GOMEZ [facility] [place] [facility] Chronic obstructive lung disease Active 71531669 [facility] [place] [facility] Coronary artery disease Active [id number] Angella LINDSEY NICHOLAS Pope [facility] [place] [facility] Cough Active [id number] LADY SALAZAR [facility] [place] [facility] Cough (SNOMED CT 12755427) Active 786.2 KJ BARRON [facility] [place] [facility] Dysarthria (SNOMED CT 3048924) Active 784.51 M KJ WONG [facility] [place] [facility] Dyspnea (SNOMED CT [id number]) Active 786.09 KJ BARKSDALE [facility] [place] [facility] Eruption due to drug Active [id number] TARIQAbdiaziz TORY [facility] [place] [facility] Gastroesophageal reflux disease Active [id number] KJ POTTER [facility] [place] [facility] Hallux valgus AND bunion Active [id number] ALEXANDRO DangeloDEISY Crane [facility] [place] [facility] Joint pain (SNOMED CT 22199151) Active 719.40 DEISY CONTRERAS Royce [facility] [place] [facility] Joint swelling (SNOMED CT 283946768) Active 719.00 KJ POTTER [facility] [place] [facility] Knee pain Active 68953848 ROSALIAJENNIFER [facility] [place] [facility] Muscle weakness (SNOMED CT 12141567) Active 728.87 KJ POTTER [facility] [place] [facility] Neuropathy Active [id number] KJ POTTER [facility] [place] [facility] Osteoarthritis Active 715.36 DYAN SERVIN [facility] [place] [facility] Parkinson's disease Active 27850640 TARIQETHAN [facility] [place] [facility] Peripheral Neuropathy Active 356.9 DASARAJU,P URUSHOTHAMA V [facility] [place] [facility] Personal History of Exposure to Agent [place] Active V15.89 DEISY CONTRERAS Royce [facility] [place] [facility] Polyp of colon (SNOMED CT 32950427) Active 211.3 KJ POTTER [facility] [place] [facility] Restless legs Active [id number] PATRICK WHITE [facility] [place] [facility] Rheumatoid arthritis Active 12256435 Abdiaziz POTTER [facility] [place] [facility] Screening, Malignancy Active V76.89 LISSETH TOLEDO [facility] [place] [facility] Sleep apnea Active 52712979 TARIQKJ ADEN RN [facility] [place] [facility] Synovial cyst of popliteal space (SNOMED CT 10175422) Active 727.51 KJ POTTER [facility] [place] [facility] Tobacco dependence in remission Active [id number] KJ POTTER [facility] [place] [facility] Tobacco use Active [id number] JENNIFER LINDSEY [facility] [place] [facility] Tremor Active 54506442 JENNIFER LINDSEY K S [facility] [place] [facility] Unresolved Active 60350490 JENNIFER LINDSEY [facility] [place] [facility] Unresolved Active [id number] JENNIFER LINDSEY [facility] [place] [facility] Radiology Reports: +/- 30 days of the encounter No Data Provided for This Section Pathology Reports: +/- 30 days of the encounter No Data Provided for This Section Encounter Notes: All associated encounter notes No Data Provided for This Section
--- OUTSIDE RECORDS SUMMARY | 2019-12-04 22:03 | XMS REPORT | Encounter Summary ---
Author Author [facility] CARLOS sweeney Organization Department of [facility] Address [address] [place] [id number] Phone Unavailable Care Team Providers Care Doughnut Fryer Name Role Phone TARIQKJ PCP Unavailable Insurance [...] PLAN G MEDICARE SUPPLEMENT Dec PLAN G [id number] [phone] ROSALINACARLOS PATIENT MEDICARE (WNR) MEDICARE (M) PART A Dec 16, 2014 PART A [id number] ROSALINACARLOS PATIENT MEDICARE (WNR) MEDICARE (M) PART B Dec 16, 2014 PART B [id number] CARLOS ROMANO PATIENT MEDICO DENTAL INSURANCE DENTAL VISIONHEARING Dec 16, 2014 DENTAL VISIONHEAR [id number] [phone] CARLOS ROMANO PATIENT Selected Encounter This section includes the information on record at [place] for the Encounter. Date/Time Encounter Type Encounter Description Reason Provider Source Apr 08, 2019 07:45 AM Outpatient Encounter PRIMARY CARE/MEDICINE JENNIFER LINDSEY [facility] VISN 15 IHE Encounter Template Text not used by [place] Assessments - Encounter Diagnoses No Data Provided for This Section Plan of Treatment: Future Appointments (+ 6 months) and Future Tests (+/- 45 day s) The Plan of Treatment section includes future care activities for the patient fr om all [facility] [place] facilities. This section includes future appointments and fu ture orders which are active, pending or scheduled. Future Appointments This section includes appointments that were scheduled t o occur 6 months from the date of the Encounter, up to a maximum of 20 appointme nts. The data comes from all [facility]. Appointment Date/Time Appointment Type Appointment Facili ty Name Apr 09, 2019 01:30 PM AMBULATORY - MEDICINE [facility] Apr 24, 2019 09:30 AM [facility] - [facility]ICINE [facility] May 29, 2019 09:00 AM AMBULATORY - NONE [facility] [place] [facility] Aug 06, 2019 01:00 PM AMBULATORY MEDICINE [facility] Active, Pending, and Scheduled Orders This [...] the Encounter. The data comes from all [facility]. Test Date/Time Test Type Test Details Facility Name Apr 02, 2019 12:00 AM Laboratory - Chemistry Order COMPREHEN SIVE METABOLIC PANEL GREEN TOP TUBE PLASMA [facility] Apr 02, 2019 12:00 AM Laboratory - Chemistry Order CBC & DIF F 5 ML LAVENDER TOP BLOOD [facility] Apr 02, 2019 12:00 AM Laboratory - Chemistry Order C-REACTIV E PROTEIN SST GEL SERUM [facility] Apr 02, 2019 10:11 AM Laboratory - Chemistry Order ERYTHROCY TE SEDIMENTATION RATE 5 ML [facility] Surgical Procedures: All associated to the encounter No Data Provided for This Section Lab Results: +/- 30 days of the encounter This section includes the Chemistry and Hematology Lab R esults on record with [place] for the patient. Radiology Reports and Pathology [...] Apr 02, 2019 10:11 AM [facility] CBC & DIFF Specimen Type: BLOOD No [...] Apr 02, 2019 10:11 AM [facility] COMPREHENSIVE METABOLI C PANEL Specimen Type: PLASMA [...] Apr 02, 2019 10:11 AM [facility] C-REACTIVE PROTEIN Specimen Type: SERUM No comment [...] patient. The data comes from a ll [place] treatment facilities. It does not list Allergies/ADRs [...] and 2) all medications recorded in the [place] medical record as "non-VA medic ations". Pharmacy terms refer to [place] pharmacy's work on prescriptions. [place] patient s are advised to take their medications as instructed by their health care team. The data comes from all [place] treatment facilities. Glossary of Pharmacy Terms:Active = A prescription that can be filled at the local [place] pharmacy.Active: On Hold = An active prescription that will not be filled until pharmacy resolves the issue.Active: Susp = An active prescription that is not scheduled to be filled yet.Clinic Order = A medication received during a visit to a [place] clinic or emergency department (currently not available).Discontinued [...] FOR INHALATION ONCE 1 Nov 16, 2018 [id number] October 17, 2018 KJ POTTER [facility] ALBUTEROL SO4 90MCG/ACTUAT (CFC-F) INHL,ORAL,6.7GM Active INHALE 2 PUFFS BY ORAL INHALATION FOUR TIMES A DAY NEEDED - RINSE MOUTHPIECE FREQUENTLY TO PREVENT CLOGGING 1 Apr 24, 2020 [id number] October 18, 2019 KJ POTTER [facility] ALBUTEROL SO4 90MCG/ACTUAT (CFC-F) INHL,ORAL,6.7GM Discontin ued INHALE 2 PUFFS BY ORAL INHALATION FOUR TIMES A DAY NEEDED - RINSE MOUTHPIECE FREQUENTLY TO PREVENT CLOGGING 2 Apr 24, 2020 [id number] Apr 24, 2019 KJ POTTER [facility] BUDESONIDE 160MCG/FORMOTEROL FUM 4.5MCG/SPRAY INHL,ORAL,10.2 GM Active INHALE 2 PUFFS BY ORAL INHALATION TWO TIMES A DAY FOR BREATHING. SHAKE WELL. RINSE MOUTH AND SPIT AFTER EACH USE. 2 Apr 24, 2020 [id number] October 17, 2019 KJ JOSHI [facility] CALCIUM 500MG (CA CARBONATE-1.25GM) TAB Active: Susp TAKE ONE TABLET BY MOUTH TWO TIMES A DAY 180 Nov 20, 2020 [id number] Jan 09, 2020 KJ POTTER [facility] CALCIUM 500MG (CA CARBONATE-1.25GM) TAB Discontinued TAKE ONE TABLET BY MOUTH TWO TIMES A DAY 180 Jan 08, 2020 [id number] October 21, 2019 KJ POTTER [facility] [place] CALCIUM 500MG (CA CARBONATE-1.25GM) TAB Discontinued TAKE ONE TABLET BY MOUTH TWO TIMES A DAY 180 Dec 29, 2018 [id number] Oct 01, 2018 NASH KULKARNI [facility] CARBIDOPA 25MG/LEVODOPA 100MG TAB Active TAKE 2 TABLETS BY MOUTH FOUR TIMES A DAY FOR PARKINSON'S DISEASE. DO NOT TAKE WITH FOOD. 240 Nov 24, 2020 [id number] Nov 27, 2019 ALLEGRA HOWE [facility] [place] [facility] CARBIDOPA 25MG/LEVODOPA 100MG TAB Discontinued TAKE T WO TABLETS BY MOUTH FIVE TIMES DAILY FOR PARKINSON'S DISEASE. DO NOT TAKE WITH FOOD. 600 Jul 02, 2020 [id number] Nov 19, 2019 [facility] [place] [facility] CARBIDOPA 25MG/LEVODOPA 100MG TAB Discontinued TAKE 2 TABLETS BY MOUTH FIVE TIMES DAILY FOR PARKINSON'S DISEASE. DO NOT TAKE WITH FOOD. 300 Jun 30, 2020 [id number] Jul 01, 2019 [facility] [place] [facility] CARBIDOPA 25MG/LEVODOPA 100MG TAB Discontinued TAKE 2 TABLETS BY MOUTH FOUR TIMES A DAY FOR PARKINSON'S DISEASE. DO NOT TAKE WITH FOOD. 240 Jun 24, 2020 [id number] Jun 26, 2019 [facility] [place] [facility] CARBIDOPA 25MG/LEVODOPA 100MG TAB Discontinued TAKE 2 TABLETS BY MOUTH FOUR TIMES A DAY FOR PARKINSON'S DISEASE. DO NOT TAKE WITH FOOD. 240 Dec 25, 2019 [id number] May 15, 2019 [facility] [place] [facility] CARBIDOPA 25MG/LEVODOPA 100MG TAB Discontinued TAKE 2 TABLETS BY MOUTH FOUR TIMES A DAY FOR PARKINSON'S DISEASE. DO NOT TAKE WITH FOOD. 240 Jun 07, 2019 [id number] Nov 18, 2018 [facility] [place] [facility] CHOLECALCIFEROL 25MCG (1,000UNIT) TAB Active: Susp TA KE TWO TABLETS BY MOUTH ONCE A DAY FOR VITAMIN D DEFICIENCY 200 Nov 20, 2020 [id number] Dec 172019 [facility] CHOLECALCIFEROL 25MCG (1,000UNIT) TAB Discontinued TA KE TWO TABLETS BY MOUTH ONCE A DAY FOR VITAMIN D DEFICIENCY 200 Dec 25, 2019 [id number] October 0 2019 [facility] [place] CHOLECALCIFEROL 25MCG (1,000UNIT) TAB Discontinued TA KE TWO TABLETS BY MOUTH ONCE A DAY FOR VITAMIN D DEFICIENCY 200 Oct 10, 2018 [id number] Aug 172018 [facility] CLOPIDOGREL BISULFATE 75MG TAB Active: Susp TAKE ONE TABLET BY MOUTH ONCE A DAY TO PREVENT BLOOD CLOTS 90 Apr 24, 2020 [id number] Dec 19, 2019 [facility] CLOPIDOGREL BISULFATE 75MG TAB Discontinued TAKE ONE TABLET BY MOUTH ONCE A DAY TO PREVENT BLOOD CLOTS 90 Jun 01, 2019 [id number] Mar 13, 2019 TARIQKJ [facility] [place] [facility] DIPHENHYDRAMINE HCL 25MG CAP Non-VA TAKE 1 CAPSULE BY MOUTH EVERY 6 HOURS NEEDED Non-VA Documented by: KJ POTTER nted at: [facility] FLUDROCORTISONE ACETATE 0.1MG TAB Active TAKE ONE TABLET BY M OUTH ONCE A DAY 90 Nov 19, 2020 [id number] Nov 20, 2019 [facility] [place] [facility] FOLIC ACID 1MG TAB Non- VA TAKE ONE TABLET BY MOUTH ONCE A DAY N on-VA Documented by: KJ POTTER nted at: [facility] GABAPENTIN 300MG CAP Active TAKE 1 CAPSULE BY M OUTH 5 TIMES A DAY FOR PAIN AND TREMORS. 300 October 17, 2020 [id number] October 18, 2019 TARIQKJ [facility] GABAPENTIN 300MG CAP Discontinued TAKE ONE CAPSULE BY MOUTH FOUR TIMES A DAY FOR PAIN AND TREMORS. 240 Jan 08, 2020 [id number] Oct 14, 2019 [facility] [place] GABAPENTIN 300MG CAP Discontinued TAKE ONE CAPSULE BY MOUTH FOUR TIMES A DAY FOR PAIN AND TREMORS. 240 Mar 08, 2019 [id number] Jan 07, 2019 [facility] [place] HYDROCODONE 10MG/ACETAMINOPHEN 325MG TAB Active TAKE ONE TABLET (10/325MG) BY MOUTH THREE TIMES A DAY NEEDED FOR PAIN CAUTION: DO NOT EXCEED 4000MG/DAY TOTAL OF ACETAMINOPHEN (APAP) FROM ALL MEDS 90 Dec 20, 2019 [id number] Nov 21, 2019 [facility] HYDROC[facility]ONE 10MG/ACETAMINOPHEN 325MG TAB Discontinued TAKE ONE TABLET (10/325MG) BY MOUTH THREE TIMES A DAY NEEDED FOR PAIN CAUTION: DO NOT EXCEED 4000MG/DAY TOTAL OF ACETAMINOPHEN (APAP) FROM ALL MEDS 90 Sep 17, 2 020 [id number] Sep 04, 2019 [facility] [place] HYDROCODONE 10MG/ACETAMINOPHEN 325MG TAB Discontinued TAKE ONE TABLET BY MOUTH THREE TIMES A DAY NEEDED FOR PAIN CAUTION: DO NOT EXCEED 4000MG/DAY TOTAL OF ACETAMINOPHEN (APAP) FROM ALL MEDS 90 Jul 26, 2019 [id number] Jun 26, 2019 [facility] [place] [facility] HYDROCODONE 10MG/ACETAMINOPHEN 325MG TAB Discontinued TAKE ONE TABLET BY MOUTH THREE TIMES A DAY NEEDED FOR PAIN CAUTION: DO NOT EXCEED 4000MG/DAY TOTAL OF ACETAMINOPHEN (APAP) FROM ALL MEDS 90 Jun 27, 2019 [id number] May 29, 2019 [facility] [place] [facility] HYDROCODONE 10MG/ACETAMINOPHEN 325MG TAB Discontinued TAKE ONE TABLET BY MOUTH THREE TIMES A DAY NEEDED FOR PAIN CAUTION: DO NOT EXCEED 4000MG/DAY TOTAL OF ACETAMINOPHEN (APAP) FROM ALL MEDS 90 May 08, 2019 [id number] Apr 08, 2019 TARIQ,[facility] [place] HYDROCODONE 10MG/ACETAMINOPHEN 325MG TAB Discontinued TAKE ONE TABLET BY MOUTH THREE TIMES A DAY NEEDED FOR PAIN CAUTION: DO NOT EXCEED 4000MG/DAY TOTAL OF ACETAMINOPHEN (APAP) FROM ALL MEDS 90 Mar 28, 2019 [id number] Feb 26, 2019 [facility] [place] [facility] HYDROCODONE 10MG/ACETAMINOPHEN 325MG TAB Discontinued TAKE ONE TABLET BY MOUTH THREE TIMES A DAY NEEDED FOR PAIN CAUTION: DO NOT EXCEED 4000MG/DAY TOTAL OF ACETAMINOPHEN (APAP) FROM ALL MEDS 90 Feb 06, 2019 [id number] Jan 07, 2019 [facility]RAYDEN [facility] [place] HYDROCODONE 10MG/ACETAMINOPHEN 325MG TAB Discontinued TAKE ONE TABLET BY MOUTH THREE TIMES A DAY NEEDED FOR PAIN CAUTION: DO NOT EXCEED 4000MG/DAY TOTAL OF ACETAMINOPHEN (APAP) FROM ALL MEDS 90 Dec 05, 2018 [id number] November 05, 2018 [facility] [place] [facility] HYDROCODONE 10MG/ACETAMINOPHEN 325MG TAB Discontinued TAKE ONE TABLET BY MOUTH THREE TIMES A DAY NEEDED FOR PAIN CAUTION: DO NOT EXCEED 4000MG/DAY TOTAL OF ACETAMINOPHEN (APAP) FROM ALL MEDS 90 October 25, 2018 [id number] Sep 25, 2018 [facility] [place] HYDROCODONE 10MG/ACETAMINOPHEN 325MG TAB TAKE ONE TABLET (10/325MG) BY MOUTH THREE TIMES A DAY NEEDED FOR PAIN CAUTION: DO NOT EXCEED 4000MG/DAY TOTAL OF ACETAMINOPHEN (APAP) FROM ALL MEDS 90 November 16, 2019 [id number] October 18, 2019 [facility] METHOTREXATE NA 2.5MG TAB Active TAKE SEVEN TABLETS BY MOUTH EVERY WEEK 90 October 17, 2020 [id number] November 04, 2019 [facility] METHOTREXATE NA 2.5MG TAB Discontinued TAKE SEVEN TABLETS BY MOUTH EVERY WEEK 90 May 09, 2020 [id number] Aug 16, 2019 NASH KULKARNI [facility] METHOTREXATE NA 2.5MG TAB Discontinued TAKE SEVEN TABLETS BY MOUTH EVERY WEEK 90 Aug 04, 2019 [id number] Feb 22, 2019 YOU GOMEZ [facility] [place] [facility] NORTRIPTYLINE HCL 10MG CAP Active TAKE 2 CAPSULES BY MO UTH AT BEDTIME NEEDED 120 Apr 02, 2020 [id number] Nov 20, 2019 [facility] [place] NORTRIPTYLINE HCL 10MG CAP Discontinued TAKE 2 CAPSUL ES BY MOUTH AT BEDTIME NEEDED 120 Mar 20, 2019 [id number] Jan 23, 2019 [facility] OMEPRAZOLE 20MG CAP,EC Active TAKE 1 CAPSULE BY MOUTH EVERY MORNING TO LOWER STOMACH ACID. TAKE 30 MINUTES PRIOR TO FOOD. 90 October 17, 2020 [id number] October 21, 2019 [facility] OMEPRAZOLE 20MG CAP,EC Discontinued TAKE 1 CAPSULE BY MOUTH EVERY MORNING TO LOWER STOMACH ACID. TAKE 30 MINUTES PRIOR TO FOOD. 90 Oct 02, 2019 [id number] Aug 02, 2019 [facility] [place] PREDNISONE 1MG TAB Discontinued TAKE THREE TABLETS B Y MOUTH ONCE A DAY FOR INFLAMMATION AND IMMUNE RESPONSE. TAKE WITH FOOD OR MILK. 270 Fe 2019 [id number] Apr 24, 2019 [facility] PREDNISONE 1MG TAB Discontinued TAKE FOUR TABLETS BY MOUTH ONCE A D AY 360 Apr 22, 2019 [id number] Jan 24, 2019 [facility] [place] [facility] PREDNISONE 1MG TAB Discontinued TAKE FOUR TABLETS BY MOUTH ONCE A D AY 360 Dec 29, 2018 [id number] Oct 01, 2018 NASH KULKARNI [facility] PREDNISONE 1MG TAB TAKE THREE TABLETS B Y MOUTH ONCE A DAY FOR INFLAMMATION AND IMMUNE RESPONSE. TAKE WITH FOOD OR MILK. 270 Ap r 2019 [id number] Jul 13, 2019 [facility] [place] [facility] PREDNISONE 5MG TAB Discontinued TAKE ONE TABLET BY MOUTH ONCE A DAY WITH FOOD 60 Aug 01, 2019 [id number] Sep 25, 2018 KJ POTTER [facility] [place] [facility] ROPINIROLE HCL 1MG TAB Active TAKE ONE TABLET BY MOUTH AT BED TIME 90 October 17, 2020 [id number] Nov 25, 2019 [facility]KJ [facility] ROPINIROLE HCL 1MG TAB Discontinued TAKE ONE TABLET BY MOUTH AT BED TIME 90 Dec 05, 2019 [id number] Sep 03, 2019 KRYSTAL DEJESUS [facility] [place] [facility] ROPINIROLE HCL 1MG TAB Discontinued TAKE ONE TABLET BY MOUTH AT BED TIME 90 Dec 13, 2018 [id number] Sep 12, 2018 [facility]IQ[facility] [place] [facility] TAMSULOSIN HCL 0.4MG CAP Active: Susp TAKE 1 CAPSULE BY MOUTH ONCE A DAY FOR PROSTATE. TAKE AT THE SAME TIME EACH DAY WITH FOOD. 90 Sep 30 1 [id number] Dec 20, 2019 KJ POTTER [facility] [place] [facility] TAMSULOSIN HCL 0.4MG CAP Discontinued TAKE 1 CAPSULE BY MOUTH ONCE A DAY FOR PROSTATE. TAKE AT THE SAME TIME EACH DAY WITH FOOD. 90 Sep 12 0 [id number] Jun 24, 2019 LIS BRUCE [facility] [place] [facility] Problems (Conditions): All historical and current Section Date Range: From patient's date of to the date document was create d. This section includes a list of Problems (Conditions) know n to [place] for the patient. It includes both active and inacti ve problems (conditions). The data comes from all [place] treatment facilities. Problem Status Problem Code Date of Onset Date of Resolution Comm ent(s) Provider Source Abnormal radiologic density Active [id number] [facility] [place] PARISI [facility] [place] [facility] Allergic rhinitis Active 91498864 LADY SALAZAR [facility] [place] [facility] Anemia Active 457126569 [facility] [place] Chest pain (SNOMED CT 84497677) Active 786.50 [facility] [place] [facility] Chondrocalcinosis Active 081323807 YOU GOMEZ [facility] [place] [facility] Chronic obstructive lung disease Active 95763485 [facility] [place] Coronary artery disease Active 59067090 Angella LINDSEY NICHOLAS Pope [facility] [place] [facility] Cough Active 12945118 LADY SALAZAR [facility] [place] [facility] Cough (SNOMED CT 54377268) Active 786.2 KJ BARRON [facility] [place] [facility] Dysarthria (SNOMED CT 6157823) Active 784.51 M KJ WONG [facility] [place] [facility] Dyspnea (SNOMED CT 808513804) Active 786.09 KJ BARKSDALE [facility] [place] [facility] Eruption due to drug Active 79220092 TARIQAbdiaziz TORY [facility] [place] [facility] Gastroesophageal reflux disease Active 189719504 KJ POTTER [facility] [place] [facility] Hallux valgus AND bunion Active 109591646 ALEXANDRO DangeloDEISY Crane [facility] [place] [facility] Joint pain (SNOMED CT 72389466) Active 719.40 DEISY CONTRERAS Royce [facility] [place] [facility] Joint swelling (SNOMED CT 929280024) Active 719.00 KJ POTTER [facility] [place] [facility] Knee pain Active 40680780 ROSALIAJENNIFER [facility] [place] [facility] Muscle weakness (SNOMED CT 39693160) Active 728.87 KJ POTTER [facility] [place] [facility] Neuropathy Active 769700227 KJ POTTER [facility] [place] Osteoarthritis Active 715.36 DYAN SERVIN [facility] [place] [facility] Parkinson's disease Active 55741955 TARIQETHAN [facility] [place] [facility] Peripheral Neuropathy Active 356.9 DASARAJU,P URUSHOTHAMA V [facility] [place] [facility] Personal History of Exposure to Agent [place] Active V15.89 DEISY CONTRERAS Royce [facility] [place] [facility] Polyp of colon (SNOMED CT 63426429) Active 211.3 KJ POTTER [facility] [place] [facility] Restless legs Active 66594153 PATRICK WHITE [facility] [place] [facility] Rheumatoid arthritis Active 83757953 Abdiaziz POTTER [facility] [place] [facility] Screening, Malignancy Active V76.89 LISSETH TOLEDO [facility] [place] [facility] Sleep apnea Active 82129336 TARIQKJ ADEN RN [facility] [place] [facility] Synovial cyst of popliteal space (SNOMED CT 91713753) Active 727.51 KJ POTTER [facility] [place] [facility] Tobacco dependence in remission Active 563449983 KJ POTTER [facility] [place] [facility] Tobacco use Active 053448253 JENNIFER LINDSEY [facility] [place] [facility] Tremor Active 72485816 JENNIFER LINDSEY K S [facility] [place] Unresolved Active 09447373 JENNIFER LINDSEY [facility] [place] Unresolved Active 05787788 JENNIFER LINDSEY [facility] [place] [facility] Radiology Reports: +/- 30 days of the encounter No Data Provided for This Section Pathology Reports: +/- 30 days of the encounter No Data Provided for This Section Encounter Notes: All associated encounter notes No Data Provided for This Section
--- OUTSIDE RECORDS SUMMARY | 2019-12-04 22:03 | XMS REPORT | Encounter Summary ---
Author Author Department of [facility] CARLOS sweeney Organization Department of [facility] Address [address] [place] [address] Phone Unavailable Care Team Providers Care Cruise Director Name Role Phone TARIQKOURTNEY PCP Unavailable Insurance [...] PLAN G MEDICARE SUPPLEMENT Dec PLAN G [id number] [phone] CARLOS ROMANO PATIENT MEDICARE (WNR) MEDICARE (M) PART A Dec 16, 2014 PART A [id number] ROSALINACARLOS LING PATIENT MEDICARE (WNR) MEDICARE (M) PART B Dec 16, 2014 PART B [id number] ROSALINACARLOS PATIENT MEDICO DENTAL INSURANCE DENTAL VISIONHEARING Dec 16, 2014 DENTAL VISIONHEAR [id number] [phone] ROSALINACARLOS PATIENT Selected Encounter This section includes the information on record at DC for the Encounter. Date/Time Encounter Type Encounter Description Reason Provider Source Apr 09, 2019 01:30 PM OFFICE/OUTPATIENT VISIT EST RHEUMATOLOGY/[facility] IHE Encounter Template Text not used by DC Assessments - Encounter Diagnoses No Data Provided for This Section Plan of Treatment: Future Appointments (+ 6 months) and Future Tests (+/- 45 day s) The Plan of Treatment section includes future care activities for the patient fr om all [facility] facilities. This section includes future appointments and fu ture orders which are active, pending or scheduled. Future Appointments This section includes appointments that were scheduled t o occur 6 months from the date of the Encounter, up to a maximum of 20 appointme nts. The data comes from all [facility]. Appointment Date/Time Appointment Type Appointment Facili ty Name Apr 24, 2019 09:30 AM AMBULATORY - MEDICINE [facility] May 29, 2019 09:00 AM AMBULATORY - NONE [facility] [place] Aug 06, 2019 01:00 PM AMBULATORY - MEDICINE [facility] Active, Pending, and Scheduled Orders This [...] The data comes from all [facility]. Test Date/Time Test Type Test Details Facility Name Apr 02, 2019 12:00 AM Laboratory - Chemistry Order COMPREHEN SIVE METABOLIC PANEL GREEN TOP TUBE PLASMA [facility] Apr 02, 2019 12:00 AM Laboratory - Chemistry Order CBC & DIF F 5 ML LAVENDER TOP BLOOD [facility] Apr 02, 2019 12:00 AM Laboratory - Chemistry Order C-REACTIV E PROTEIN SST GEL SERUM [facility] Apr 02, 2019 10:11 AM Laboratory - Chemistry Order ERYTHROCY TE SEDIMENTATION RATE 5 ML LAVENDER TOP BLOOD [facility] Surgical Procedures: All associated to the encounter No Data Provided for This Section Lab Results: +/- 30 days of the encounter This section includes the Chemistry and Hematology Lab R esults on record with DC for the patient. Radiology Reports and Pathology Report s are provided separately, in subsequent sections. Lab Results This section contains the Chemistry/Hematology Results juan t were resulted 30 days before or 30 days after the date of the Encounter. Date/Time Source Result Type Result - Unit Interpretation Reference Range Comment Apr 02, 2019 10:11 AM [facility] LIPID PROFILE(HDL,TRI G,CHOL,LDL) Specimen Type: PLASMA No comment entered. CHOLESTEROL 170 mg/dL 0-200 TRIGS 85 mg/dL 0-150 HDL-CHOLESTEROL 64 mg/dL >40 LDL (CALC) 89.0 mg/dL 0-99.9 Apr 02, 2019 10:11 AM [facility] TSH Specimen Type: SERUM No comment entered. TSH 0.94 uIU/mL 0.47-5.00 Apr 02, 2019 10:11 AM [facility] PROSTATIC SPECIFIC AN TIGEN(TOTAL) Specimen Type: SERUM No comment entered. PROSTATIC SPECIFIC ANTIGEN(TOTAL) 1.73 ng/mL 0-4 Apr 02, 2019 10:11 AM [facility] URINALYSIS Specimen Type: URINE No comment entered. URINE COLOR Yellow SPECIFIC GRAVITY 1.010 1.005-1.030 UROBILINOGEN Negative mg/dL 0.1-1.0 URINE BILIRUBIN Negative Negative URINE KETONES Negative mg/dl Negative URINE GLUCOSE Negative mg/dL Negative URINE PROTEIN Negative mg/dl Negative-Tr juliana URINE PH 8.0 5-8 APPEARANCE,URINE Clear Clear URINE BLOOD Negative Negative URINE NITRITE Negative Negative LEUKOCYTE ESTERASE Negative Negative Apr 02, 2019 10:11 AM [facility] DRUGS OF ABUSE SCREEN Specimen Type: URINE No comment entered. AMPHETAMINE NEG Negative BARBITURATES NEG Negative BENZODIAZEPINES NEG Negative CANNABINOIDS NEG Negative COCAINE NEG Negative OPIATES >1000POS Negative PHENCYCLIDINE(PCP) NEG Negative *CREATININE,DRUG SCR 45.00 mg/dL METHADONE(UDS) NEG Negative OXYCODONE (URINE) NEG Negative ALCOHOL-URINE,RANDOM (MARCO,WI,EK) NEG mg/dL <10 Apr 02, 2019 10:11 AM [facility] HEMOGLOBIN A1C Specimen Type: BLOOD No comment entered. HEMOGLOBIN A1C 5.8 % 4.0-6.0 Apr 02, 2019 10:11 AM [facility] CBC & DIFF Specimen Type: [...] % Apr 02, 2019 10:11 AM [facility] Chet [facility] COMPREHENSIVE METABOLI C PANEL Specimen Type: PLASMA [...] 91.9 Apr 02, 2019 10:11 AM [facility] Rosenberg [facility] C-REACTIVE PROTEIN Specimen Type: SERUM No comment entered. C-REACTIVE PROTEIN 6.43 mg/dL H 0.0-0.5 Vital Signs: All taken on the encounter date This section contains inpatient and outpatient Vital Signs collected on the date of the Encounter. Date/Time Temperature Pulse Blood Pressure Respiratory Rate SP02 Pa in Height Weight Body Mass Index Source Apr 09, 2019 01:22 PM 5 [facility] Immunizations: All administered on the encounter date [...] patient. The data comes from a ll [place] treatment facilities. It does not list Allergies/ADRs that were removed or entered in error. Some allergies/ADRs may be reported in t he Immunization section. Allergen Event Date Event Type Reaction(s) Severity Source PANTOPRAZOLE Oct 01, 2018 Propensity to adverse reactions to drug (disorder) Eruption [facility] PENICILLIN Jul 17, 2012 Propensity to adverse reactions to drug (disorder) Peripheral edema [facility] Medications: VA dispensed (-15 months) and Non-VA Documented (Obtained Outside A) Section Date Range: 1) prescriptions processed by a VA pharmacy in the last 15 m ont, and 2) all medications recorded in the DC medical record as "non-VA medic ations". Pharmacy terms refer to VA pharmacy's work on prescriptions. VA patient s are advised to take their medications as instructed by their health care team. The data comes from all [place] treatment facilities. Glossary of Pharmacy Terms:Active = A prescription that can be filled at the local [place] pharmacy.Active: On Hold = An active prescription that will not be filled until pharmacy resolves the issue.Active: Susp = An active prescription that is not scheduled to be filled yet.Clinic Order = A medication received during a visit to a [place] clinic or emergency department (currently not available).Discontinued [...] FOR INHALATION ONCE 1 Nov 16, 2018 [id number] October 17, 2018 KOURTNEY DANIELSON [facility] ALBUTEROL SO4 90MCG/ACTUAT (CFC-F) INHL,ORAL,6.7GM Active INHALE 2 PUFFS BY ORAL INHALATION FOUR TIMES A DAY NEEDED - RINSE MOUTHPIECE FREQUENTLY TO PREVENT CLOGGING 1 Apr 24, 2020 [id number] October 18, 2019 KOURTNEY DANIELSON [facility] ALBUTEROL SO4 90MCG/ACTUAT (CFC-F) INHL,ORAL,6.7GM Discontin ued INHALE 2 PUFFS BY ORAL INHALATION FOUR TIMES A DAY NEEDED - RINSE MOUTHPIECE FREQUENTLY TO PREVENT CLOGGING 2 Apr 24, 2020 [id number] Apr 24, 2019 KOURTNEY DANIELSON [facility] BUDESONIDE 160MCG/FORMOTEROL FUM 4.5MCG/SPRAY INHL,ORAL,10.2 GM Active INHALE 2 PUFFS BY ORAL INHALATION TWO TIMES A DAY FOR BREATHING. SHAKE WELL. RINSE MOUTH AND SPIT AFTER EACH USE. 2 Apr 24, 2020 [id number] October 17, 2019 KOURTNEY JOSHI [facility] CALCIUM 500MG (CA CARBONATE-1.25GM) TAB Active: Susp TAKE ONE TABLET BY MOUTH TWO TIMES A DAY 180 Nov 20, 2020 [id number] Jan 09, 2020 KOURTNEY DANIELSON [facility] CALCIUM 500MG (CA CARBONATE-1.25GM) TAB Discontinued TAKE ONE TABLET BY MOUTH TWO TIMES A DAY 180 Jan 08, 2020 [id number] October 21, 2019 KOURTNEY DANIELSON [facility] [place] CALCIUM 500MG (CA CARBONATE-1.25GM) TAB Discontinued TAKE ONE TABLET BY MOUTH TWO TIMES A DAY 180 Dec 29, 2018 [id number] Oct 01, 2018 [facility] CARBIDOPA 25MG/LEVODOPA 100MG TAB Active TAKE 2 TABLETS BY MOUTH FOUR TIMES A DAY FOR PARKINSON'S DISEASE. DO NOT TAKE WITH FOOD. 240 Nov 24, 2020 [id number] Nov 27, 2019 [facility] [place] CARBIDOPA 25MG/LEVODOPA 100MG TAB Discontinued TAKE T WO TABLETS BY MOUTH FIVE TIMES DAILY FOR PARKINSON'S DISEASE. DO NOT TAKE WITH FOOD. 600 Jul 02, 2020 [id number] Nov 19, 2019 [facility] [place] CARBIDOPA 25MG/LEVODOPA 100MG TAB Discontinued TAKE 2 TABLETS BY MOUTH FIVE TIMES DAILY FOR PARKINSON'S DISEASE. DO NOT TAKE WITH FOOD. 300 Jun 30, 2020 [id number] Jul 01, 2019 [facility] [place] [facility] CARBIDOPA 25MG/LEVODOPA 100MG TAB Discontinued TAKE 2 TABLETS BY MOUTH FOUR TIMES A DAY FOR PARKINSON'S DISEASE. DO NOT TAKE WITH FOOD. 240 Jun 24, 2020 [id number] Jun 26, 2019 [facility] [place] [facility] CARBIDOPA 25MG/LEVODOPA 100MG TAB Discontinued TAKE 2 TABLETS BY MOUTH FOUR TIMES A DAY FOR PARKINSON'S DISEASE. DO NOT TAKE WITH FOOD. 240 Dec 25, 2019 [id number] May 15, 2019 [facility] [place] [facility] CARBIDOPA 25MG/LEVODOPA 100MG TAB Discontinued TAKE 2 TABLETS BY MOUTH FOUR TIMES A DAY FOR PARKINSON'S DISEASE. DO NOT TAKE WITH FOOD. 240 Jun 07, 2019 [id number] Nov 18, 2018 [facility] [place] [facility] CHOLECALCIFEROL 25MCG (1,000UNIT) TAB Active: Susp TA KE TWO TABLETS BY MOUTH ONCE A DAY FOR VITAMIN D DEFICIENCY 200 Nov 20, 2020 [id number] Dec 172019 [facility] CHOLECALCIFEROL 25MCG (1,000UNIT) TAB Discontinued TA KE TWO TABLETS BY MOUTH ONCE A DAY FOR VITAMIN D DEFICIENCY 200 Dec 25, 2019 [id number] October [facility] [place] CHOLECALCIFEROL 25MCG (1,000UNIT) TAB Discontinued TA KE TWO TABLETS BY MOUTH ONCE A DAY FOR VITAMIN D DEFICIENCY 200 Oct 10, 2018 [id number] Aug 172018 [facility] CLOPIDOGREL BISULFATE 75MG TAB Active: Susp TAKE ONE TABLET BY MOUTH ONCE A DAY TO PREVENT BLOOD CLOTS 90 Apr 24, 2020 [id number] Dec 19, 2019 [facility] CLOPIDOGREL BISULFATE 75MG TAB Discontinued TAKE ONE TABLET BY MOUTH ONCE A DAY TO PREVENT BLOOD CLOTS 90 Jun 01, 2019 [id number] Mar 13, 2019 [facility] [place] DIPHENHYDRAMINE HCL 25MG CAP Non-VA TAKE 1 CAPSULE BY MOUTH EVERY 6 HOURS NEEDED Non-VA Documented by: KOURTNEY DANIELSON nted at: [facility] FLUDROCORTISONE ACETATE 0.1MG TAB Active TAKE ONE TABLET BY M OUTH ONCE A DAY 90 Nov 19, 2020 [id number] Nov 20, 2019 [facility] [place] FOLIC ACID 1MG TAB Non- VA TAKE ONE TABLET BY MOUTH ONCE A DAY N on-VA Documented by: KOURTNEY DANIELSON nted at: [facility] GABAPENTIN 300MG CAP Active TAKE 1 CAPSULE BY M OUTH 5 TIMES A DAY FOR PAIN AND TREMORS. 300 October 17, 2020 [id number] October 18, 2019 [facility] GABAPENTIN 300MG CAP Discontinued TAKE ONE CAPSULE BY MOUTH FOUR TIMES A DAY FOR PAIN AND TREMORS. 240 Jan 08, 2020 [id number] Oct 14, 2019 [facility] [place] GABAPENTIN 300MG CAP Discontinued TAKE ONE CAPSULE BY MOUTH FOUR TIMES A DAY FOR PAIN AND TREMORS. 240 Mar 08, 2019 [id number] Jan 07, 2019 [facility] [place] HYDROCODONE 10MG/ACETAMINOPHEN 325MG TAB Active TAKE ONE TABLET (10/325MG) BY MOUTH THREE TIMES A DAY NEEDED FOR PAIN CAUTION: DO NOT EXCEED 4000MG/DAY TOTAL OF ACETAMINOPHEN (APAP) FROM ALL MEDS 90 Dec 20, 2019 [id number] Nov 21, 2019 [facility] HYDROCODONE 10MG/ACETAMINOPHEN 325MG TAB Discontinued TAKE ONE TABLET (10/325MG) BY MOUTH THREE TIMES A DAY NEEDED FOR PAIN CAUTION: DO NOT EXCEED 4000MG/DAY TOTAL OF ACETAMINOPHEN (APAP) FROM ALL MEDS 90 Sep 17, 2 020 [id number] Sep 04, 2019 [facility] [place] HYDROCODONE 10MG/ACETAMINOPHEN 325MG TAB Discontinued TAKE ONE TABLET BY MOUTH THREE TIMES A DAY NEEDED FOR PAIN CAUTION: DO NOT EXCEED 4000MG/DAY TOTAL OF ACETAMINOPHEN (APAP) FROM ALL MEDS 90 Jul 26, 2019 [id number] Jun 26, 2019 [facility] [place] HYDROCODONE 10MG/ACETAMINOPHEN 325MG TAB Discontinued TAKE ONE TABLET BY MOUTH THREE TIMES A DAY NEEDED FOR PAIN CAUTION: DO NOT EXCEED 4000MG/DAY TOTAL OF ACETAMINOPHEN (APAP) FROM ALL MEDS 90 Jun 27, 2019 [id number] May 29, 2019 [facility] [place] HYDROCODONE 10MG/ACETAMINOPHEN 325MG TAB Discontinued TAKE ONE TABLET BY MOUTH THREE TIMES A DAY NEEDED FOR PAIN CAUTION: DO NOT EXCEED 4000MG/DAY TOTAL OF ACETAMINOPHEN (APAP) FROM ALL MEDS 90 May 08, 2019 [id number] Apr 08, 2019 [facility] [place] HYDROCODONE 10MG/ACETAMINOPHEN 325MG TAB Discontinued TAKE ONE TABLET BY MOUTH THREE TIMES A DAY NEEDED FOR PAIN CAUTION: DO NOT EXCEED 4000MG/DAY TOTAL OF ACETAMINOPHEN (APAP) FROM ALL MEDS 90 Mar 28, 2019 [id number] Feb 26, 2019 [facility] [place] HYDROCODONE 10MG/ACETAMINOPHEN 325MG TAB Discontinued TAKE ONE TABLET BY MOUTH THREE TIMES A DAY NEEDED FOR PAIN CAUTION: DO NOT EXCEED 4000MG/DAY TOTAL OF ACETAMINOPHEN (APAP) FROM ALL MEDS 90 Feb 06, 2019 [id number] Jan 07, 2019 [facility] [place] HYDROCODONE 10MG/ACETAMINOPHEN 325MG TAB Discontinued TAKE ONE TABLET BY MOUTH THREE TIMES A DAY NEEDED FOR PAIN CAUTION: DO NOT EXCEED 4000MG/DAY TOTAL OF ACETAMINOPHEN (APAP) FROM ALL MEDS 90 Dec 05, 2018 [id number] November 05, 2018 [facility] [place] HYDROCODONE 10MG/ACETAMINOPHEN 325MG TAB Discontinued TAKE ONE TABLET BY MOUTH THREE TIMES A DAY NEEDED FOR PAIN CAUTION: DO NOT EXCEED 4000MG/DAY TOTAL OF ACETAMINOPHEN (APAP) FROM ALL MEDS 90 October 25, 2018 [id number] Sep 25, 2018 [facility] [place] HYDROCODONE 10MG/ACETAMINOPHEN 325MG TAB TAKE ONE TABLET (10/325MG) BY MOUTH THREE TIMES A DAY NEEDED FOR PAIN CAUTION: DO NOT EXCEED 4000MG/DAY TOTAL OF ACETAMINOPHEN (APAP) FROM ALL MEDS 90 November 16, 2019 [id number] October 18, 2019 [facility] METHOTREXATE NA 2.5MG TAB Active TAKE SEVEN TABLETS BY MOUTH EVERY WEEK 90 October 17, 2020 [id number] November 04, 2019 [facility] METHOTREXATE NA 2.5MG TAB Discontinued TAKE SEVEN TABLETS BY MOUTH EVERY WEEK 90 May 09, 2020 [id number] Aug 16, 2019 NASH TANG [facility] METHOTREXATE NA 2.5MG TAB Discontinued TAKE SEVEN TABLETS BY MOUTH EVERY WEEK 90 Aug 04, 2019 [id number] Feb 22, 2019 YOU GOMEZ [facility] [place] NORTRIPTYLINE HCL 10MG CAP Active TAKE 2 CAPSULES BY MO UTH AT BEDTIME NEEDED 120 Apr 02, 2020 [id number] Nov 20, 2019 [facility] [place] NORTRIPTYLINE HCL 10MG CAP Discontinued TAKE 2 CAPSUL ES BY MOUTH AT BEDTIME NEEDED 120 Mar 20, 2019 [id number] Jan 23, 2019 [facility] OMEPRAZOLE 20MG CAP,EC Active TAKE 1 CAPSULE BY MOUTH EVERY MORNING TO LOWER STOMACH ACID. TAKE 30 MINUTES PRIOR TO FOOD. 90 October 17, 2020 [id number] October 21, 2019 [facility] OMEPRAZOLE 20MG CAP,EC Discontinued TAKE 1 CAPSULE BY MOUTH EVERY MORNING TO LOWER STOMACH ACID. TAKE 30 MINUTES PRIOR TO FOOD. 90 Oct 02, 2019 [id number] Aug 02, 2019 [facility] [place] PREDNISONE 1MG TAB Discontinued TAKE THREE TABLETS B Y MOUTH ONCE A DAY FOR INFLAMMATION AND IMMUNE RESPONSE. TAKE WITH FOOD OR MILK. 270 2019 [id number] Apr 24, 2019 [facility] PREDNISONE 1MG TAB Discontinued TAKE FOUR TABLETS BY MOUTH ONCE A D AY 360 Apr 22, 2019 [id number] Jan 24, 2019 BLEU DAVIES [facility] WITH [facility] [place] PREDNISONE 1MG TAB Discontinued TAKE FOUR TABLETS BY MOUTH ONCE A D AY 360 Dec 29, 2018 [id number] Oct 01, 2018 NASH TANG V [facility] PREDNISONE 1MG TAB TAKE THREE TABLETS B Y MOUTH ONCE A DAY FOR INFLAMMATION AND IMMUNE RESPONSE. TAKE WITH FOOD OR MILK. 270 Ap r 2019 [id number] Jul 13, 2019 KOURTNEY DANIELSON [facility] [place] PREDNISONE 5MG TAB Discontinued TAKE ONE TABLET BY MOUTH ONCE A DAY WITH FOOD 60 Aug 01, 2019 [id number] Sep 25, 2018 KOURTNEY DANIELSON [facility] [place] ROPINIROLE HCL 1MG TAB Active TAKE ONE TABLET BY MOUTH AT BED TIME 90 October 17, 2020 [id number] Nov 25, 2019 TARIQKOURTNEY SMITH [facility] ROPINIROLE HCL 1MG TAB Discontinued TAKE ONE TABLET BY MOUTH AT BED TIME 90 Dec 05, 2019 [id number] Sep 03, 2019 KRYSTAL DEJESUS [facility] [place] ROPINIROLE HCL 1MG TAB Discontinued TAKE ONE TABLET BY MOUTH AT BED TIME 90 Dec 13, 2018 [id number] Sep 12, 2018 [facility] [place] TAMSULOSIN HCL 0.4MG CAP Active: Susp TAKE 1 CAPSULE BY MOUTH ONCE A DAY FOR PROSTATE. TAKE AT THE SAME TIME EACH DAY WITH FOOD. 90 Sep 30 1 [id number] Dec 20, 2019 KOURTNEY DANIELSON [facility] [place] TAMSULOSIN HCL 0.4MG CAP Discontinued TAKE 1 CAPSULE BY MOUTH ONCE A DAY FOR PROSTATE. TAKE AT THE SAME TIME EACH DAY WITH FOOD. 90 Sep 12 0 [id number] Jun 24, 2019 LIS BRUCE [facility] [place] Problems (Conditions): All historical and current Section Date Range: From patient's date of to the date document was create d. This section includes a list of Problems (Conditions) know n to VA for the patient. It includes both active and inacti ve problems (conditions). The data comes from all [place] treatment facilities. Problem Status Problem Code Date of Onset Date of Resolution Comm ent(s) Provider Source Abnormal radiologic density Active [id number] KOURTNEY WALKER [facility] [place] Allergic rhinitis Active [id number] LADY SALAZAR [facility] [place] Anemia Active [id number] KOURTNEY DANIELSON [facility] [place] Chest pain (SNOMED CT 91754864) Active 786.50 [facility] [place] Chondrocalcinosis Active [id number] YOU GOMEZ [facility] [place] Chronic obstructive lung disease Active 28904908 KOURTNEY DANIELSON [facility] [place] Coronary artery disease Active 45456564 ROSALIAAngella NICHOLAS Pope [facility] [place] Cough Active 72948853 LADY SALAZAR [facility] [place] Cough (SNOMED CT 63485373) Active 786.2 KOURTNEY BARRON [facility] [place] Dysarthria (SNOMED CT 2529270) Active 784.51 M KOURTNEY WONG [facility] [place] Dyspnea (SNOMED CT 561188594) Active 786.09 KOURTNEY BARKSDALE [facility] [place] Eruption due to drug Active 72863954 Abdiaziz DANIELSON [facility] [place] Gastroesophageal reflux disease Active 900852459 KOURTNEY DANIELSON [facility] [place] Hallux valgus AND bunion Active 911142370 DEISY GERMAIN [facility] [place] Joint pain (SNOMED CT 99850897) Active 719.40 DEISY CONTRERAS [facility] [place] Joint swelling (SNOMED CT 808892967) Active 719.00 KOURTNEY DANIELSON [facility] [place] Knee pain Active 30681262 JENNIFER LINDSEY [facility] [place] Muscle weakness (SNOMED CT 87424515) Active 728.87 TARIQKOURTNEY [facility] [place] Neuropathy Active [id number] KOURTNEY DANIELSON RN [facility] [place] Osteoarthritis Active 715.36 DYAN SERVIN [facility] [place] Parkinson's disease Active 80821749 ETHAN DANIELSON [facility] [place] Peripheral Neuropathy Active 356.9 DASARAJU,P URUSHOTHAMA V [facility] [place] Personal History of Exposure to Agent [place] Active V15.89 DEISY CONTRERAS [facility] [place] Polyp of colon (SNOMED CT 14568288) Active 211.3 TARIQKOURTNEY [facility] [place] Restless legs Active 57207411 PATRICK WHITE [facility] [place] Rheumatoid arthritis Active 87551913 Abdiaziz DANIELSON [facility] [place] Screening, Malignancy Active V76.89 LISSETH TOLEDO [facility] [place] Sleep apnea Active 64445716 KOURTNEY DANIELSON RN [facility] [place] Synovial cyst of popliteal space (SNOMED CT 75777659) Active 727.51 KOURTNEY DANIELSON [facility] [place] Tobacco dependence in remission Active 560496998 TARIQ,KOURTNEY [facility] [place] Tobacco use Active 140890184 JENNIFER LINDSEY CAROLYN [facility] [place] Tremor Active 90109483 JENNIFER LINDSEY K S [facility] [place] Unresolved Active 91737662 JENNIFER LINDSEY N [facility] [place] Unresolved Active [id number] JENNIFER LINDSEY [facility] [place] Radiology Reports: +/- 30 days of the encounter No Data Provided for This Section Pathology Reports: +/- 30 days of the encounter No Data Provided for This Section Encounter Notes: All associated encounter notes This section contains the clinical notes associated to the Encounter. Date/Time Encounter Note(s) Provider Source Apr 09, 2019 03:40 PM MEDICATION MGT NOTE: LOCAL TITLE: [place]-MEDICATION RECONCILIATION (BP,O) STANDARD TITLE: MEDICATION MGT NOTE DATE OF NOTE: APR 09, 2019@15:40 ENTRY DATE: APR 09, 2019@15:40:17 AUTHOR: NASH TANG COSIGNER: URGENCY: STATUS: COMPLETED MEDICATION RECONCILIATION Allergies: PENICILLIN, PANTOPRAZOLE Allergies reviewed, edited in CPRS as appropriate and confirmed by patient: Yes Active Outpatient Medications (including Supplies): Outpatient Medications Status = 1) ALBUTEROL SO4 0.083% INHL 3ML USE 3 MLS (1 AMPULE) IN ACTIVE NEBULIZER FOR INHALATION FOUR TIMES A DAY NEEDED 2) CALCIUM 500MG (CA CARB-1.25GM) TAB TAKE ONE TABLET BY ACTIVE MOUTH TWO TIMES A DAY 3) CARBIDOPA 25/LEVODOPA 100MG TAB TAKE 2 TABLETS BY ACTIVE MOUTH FOUR TIMES A DAY FOR PARKINSON'S DISEASE. DO NOT TAKE WITH FOOD. 4) CHOLECALCIFEROL (VIT D3) 1,000UNIT TAB TAKE TWO ACTIVE TABLETS BY MOUTH ONCE A DAY FOR VITAMIN D DEFICIENCY 5) CLOPIDOGREL BISULFATE 75MG TAB TAKE ONE TABLET BY ACTIVE MOUTH ONCE A DAY TO PREVENT BLOOD CLOTS 6) GABAPENTIN 300MG CAP TAKE ONE CAPSULE BY MOUTH FOUR ACTIVE (S) TIMES A DAY FOR PAIN AND TREMORS. 7) HYDROCODONE 10/ACETAMINOPHEN 325MG TAB TAKE 1 TABLET ACTIVE BY MOUTH THREE TIMES A DAY NEEDED FOR PAIN CAUTION: DO NOT EXCEED 4000MG/DAY TOTAL OF ACETAMINOPHEN (APAP) FROM ALL MEDS 8) METHOTREXATE NA 2.5MG TAB TAKE SEVEN TABLETS BY MOUTH ACTIVE EVERY WEEK 9) NORTRIPTYLINE HCL 10MG CAP TAKE TWO CAPSULES BY MOUTH ACTIVE AT BEDTIME NEEDED 10) OMEPRAZOLE 20MG EC CAP TAKE ONE CAPSULE BY MOUTH ACTIVE EVERY MORNING TO LOWER STOMACH ACID. TAKE 30 MINUTES PRIOR TO FOOD. 11) PREDNISONE 1MG TAB TAKE FOUR TABLETS BY MOUTH ONCE A ACTIVE DAY 12) ROPINIROLE HCL 1MG TAB TAKE ONE TABLET BY MOUTH AT ACTIVE BEDTIME 13) TAMSULOSIN HCL 0.4MG CAP TAKE ONE CAPSULE BY MOUTH ACTIVE ONCE A DAY FOR PROSTATE. TAKE AT THE SAME TIME EACH DAY WITH FOOD. Non-VA Medications Status = 1) Non-VA DIPHENHYDRAMINE HCL 25MG CAP 25MG MOUTH EVERY ACTIVE 6 HOURS NEEDED 2) Non-VA FOLIC ACID 1MG TAB 1MG MOUTH ONCE A DAY ACTIVE 15 Total Medications Compared newly ordered medications and [...] medications from this visit: New? Changed? Yes Prednisone 3 mg every morning Stopped? /sofya/ Nash Tang MD Staff Research Agricultural Engineer Signed: 04/09/2019 15:40 [facility] Apr 09, 2019 01:23 PM RHEUMATOLOGY NOTE: LOCAL TITLE: [facility]-RHEUMATOLOGY/FOLLOW-UP STANDARD TITLE: RHEUMATOLOGY NOTE DATE OF NOTE: APR 09, 2019@13:23 ENTRY DATE: APR 09, 2019@13:23:05 AUTHOR: NASH TANG EXP COSIGNER: URGENCY: STATUS: COMPLETED Primary Care Team: Kourtney Danielson PA-C Last seen in the Rheumatology clinic: September 30, 2018 CHIEF COMPLAINT/ HISTORY OF PRESENT ILLNESS/ INTERVAL HISTORY: The patient, 68 year old , with past medical history of COPD, TIA, Rheumatoid Arthritis, Parkinson's Disease is here for follow-up visit with this practitioner for evaluation of his condition, medications and problems listed. Apparently the patient has history of Rheumatoid Arthritis last 6-7 years and has been on Methotrexate, low-dose Prednisone and Folic acid. The patient denies to have any major side effects secondary to these medications and has been tolerating them well. He reports to have pain (2-3/10) and mild morning stiffness (15 mins) in the small joints of the hands and wrists. 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 He has seen an Orthopedic Surgeon in the past for possible surgery on his right shoulder joint for the Osteoarthritis and rotator cuff tear. He also informs that he has undergone nerve conduction study for both hands and has been diagnosed with carpal tunnel syndrome. He has been using wrist splints regularly at night now and that has helped him. Past Medical History: COPD, TIA, Rheumatoid Arthritis, Parkinson's Disease Past Surgical History: Appendicectomy, bilateral knee surgeries, cataracts surgery Family History: Father: Diabetes, prostate cancer, at age 72. Mother: CAD, multiple sclerosis, CABG, at age 68 Brother: Alive and healthy Sister: Alive and healthy Social History: for 43 years, 2 children RESIDES: [place] [id number] TOBACCO: Quit 1 year ago, 1-2 packs [...] old male with NAD, Well groomed. VITALS: 04/09/19 13:22 Pain: 5 10/25/18 13:24 T: 97.6 F (36.4 C) P: 91 R: 20 B/P: 130/76 Pulse Oximetry: 95% SKIN: No rashes or lesions. HEAD: Atraumatic, [...] daily Gabapentin 300 mg po QID Prednisone 4 mg po q am - for 4 years Vitamin D 1000 U once a day Calcium 1000 mg po bid Lab results: I have reviewed all the lab work results with the patient in detail, including Rheumatological labs. Specimen Collection Date: Apr 02, 2019@10:11 Test name Result units Ref. range Site Code C-REACTIVE PROTEIN 6.43 H mg/dL 0.0 - 0.5 [6027] PSA 1.73 ng/mL 0 - 4 [6027] TSH 0.94 uIU/mL 0.47 - 5.00 [6027] Specimen Collection Date: Apr 02, 2019@10:11 Test name Result units Ref. range Site Code SODIUM 134 L mEq/L 136 - 145 [6027] POTASSIUM 4.2 mEq/L 3.5 - 5.0 [6027] CHLORIDE 95 L mEq/L 98 - 107 [6027] CO2 28 mEq/L 22 - 31 [6027] UREA NITROGEN mg/dL 14 mg/dL 9 - 25 [6027] *CREATININE 0.83 mg/dL 0.7 - 1.3 [6027] EGFR 91.9 [6027] GLUCOSE 95 mg/dL 72 - 99 [6027] CALCIUM (mg/dL) 9.9 mg/dL 8.4 - 10.4 [6027] ASPARTATE TRANSAMINASE 14 U/L 5 - 34 [6027] ALANINE AMINOTRANSFERASE <6 L U/L 8 - 40 [6027] ALKALINE PHOSPHATASE 78 U/L 40 - 150 [6027] TOTAL BILIRUBIN 0.5 mg/dL 0.2 - 1.2 [6027] PROTEIN,TOTAL 8.0 g/dL 6.0 - 8.6 [6027] ALBUMIN 4.3 g/dl 3.4 - 5.0 [6027] CHOLESTEROL 170 mg/dL 0 - 200 [6027] Eval: >>>>>>>>>>>>>>>>>>>>>>>>>>>>>><<<<<<<<<<<<<<<<<<<<<<<<<<<<<<<<<< Eval: Chol (mg/dl) Desirable <200 Borderline 200-239 High Risk >240 Eval: >>>>>>>>>>>>>>>>>>>>>>>>>>>>>><<<<<<<<<<<<<<<<<<<<<<<<<<<<<<<<<< TRIGS 85 mg/dL 0 - 150 [6027] Eval: TRIGLYCERIDE REFERENCE HIGH CHANGED FROM <200 mg/dl TO <150 mg/dl ON Eval: 03-01-2001 PER JOI [id number], 2000. HDL-CHOLESTEROL 64 mg/dL Ref: >=40 [6027] Eval: <<<<<<<<<<<<<<<<<<<<<<<<<<<<<>>>>>>>>>>>>>>>>>>>>>>>>>> Eval: HDL (mg/dl) Desirable >40 mg/dl High Risk <40 mg/dl Eval: <<<<<<<<<<<<<<<<<<<<<<<<<<<<<>>>>>>>>>>>>>>>>>>>>>>>>>> LDL (CALC) 89.0 mg/dL 0 - 99.9 [6027] Specimen Collection Date: Apr 02, 2019@10:11 Test name Result units Ref. range Site Code WBC 7.89 K/cmm 3.60 - 11.20 [6027] RBC 4.41 M/ul 4.1 - 5.7 [6027] HGB 12.7 L g/dl 13.1 - 16.8 [6027] HCT 39.5 % 38.2 - 48.4 [6027] MCV 89.6 fl 80.1 - 98.5 [6027] MCH 28.8 pg 27.0 - 34.0 [6027] MCHC 32.2 L g/dl 33.0 - 36.0 [6027] RDW 15.8 H % 11.8 - 15.1 [6027] PLATELET COUNT 431 H K/cmm 150 - 400 [6027] MPV 8.9 fl 7.5 - 11.2 [6027] NEUTROPHILS, AUTO % 84.0 % [6027] LYMPHOCYTES, AUTO% 9.8 % [6027] MONOCYTES, AUTO% 4.8 % [6027] EOSINOPHILS, AUTO% 0.3 % [6027] BASOPHILS, AUTO% 0.8 % [6027] IMMATURE GRANS, AUTO % 0.3 % [6027] NEUTROPHILS, ABSOLUTE 6.64 K/cmm 2.10 - 8.00 [6027] LYMPHOCYTES, ABSOLUTE 0.77 K/cmm 0.77 - 4.50 [6027] MONOCYTES, ABSOLUTE 0.38 K/cmm 0.19 - 0.80 [6027] EOSINOPHILS, ABSOLUTE 0.02 K/cmm 0.00 - 0.60 [6027] BASOPHILS, ABSOLUTE 0.06 K/cmm 0.00 - 0.20 [6027] IMMATURE GRANS, ABSOLUTE 0.02 K/cmm 0.00 - 0.05 [6027] Specimen Collection Date: Sep 30, 2018@14:51 Test name Result units Ref. range Site Code RHEUMATOID FACTOR <15.0 IU/mL 0 - 29 [589] Imaging studies: The x-ray results of bilateral hands and knee joints from the [facility], have been reviewed with patient in detail. 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 He has never been on other Disease Modifying Anti- Rheumatic Drugs or biologic agents in the past. ESR: not done this time < 30, CRP: 6.43 < 2.4. 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 No other complaints with immunosuppression at this time. 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 He is taking Calcium and Vitamin D twice a day. He has not undergone a recent DEXA scan. 4) Bilateral Carpal Tunnel Syndrome: A n erve conduction study has been done in the past to diagnose bilateral carpal tunnel syndrome. Using wrist splints every night now and they have been helpful. 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 6) COPD/ Pakinson's Disease: stable on m [...] questions and concerns. - Decrease Prednisone to 3 mg p.o. every morning with breakfast. Expected [...] the bi lateral carpal tunnel syndrome in [place], [place] after the right shoulder joint surgery but they have not been done. - Continue Methotrexate 2.5 mg, 7 tabs [...] Continue to follow up with the [facility] team for non-rheumatological issues. - CBC, CMP, CRP, and ESR, every 3-4 ju hs. - Return to the clinic in 6 months, at h is request with pre-clinic labs, CBC, CMP, ESR and CRP done. /sofya/ Nash Tang MD Staff Research Agricultural Engineer Signed: 04/09/2019 15:40 [facility] Apr 09, 2019 01:20 PM NURSING OUTPATIENT NOTE: LOCAL TITLE: [facility]-SPECIALTY PRE-APPT STANDARD TITLE: NURSING OUTPATIENT NOTE DATE OF NOTE: APR 09, 2019@13:20 ENTRY DATE: APR 09, 2019@13:20:32 AUTHOR: CAMRYN CAMPO EXP COSIGNER: URGENCY: STATUS: COMPLETED Specialty Pre-Appt Reason for appointment: fu 68 y/o MALE ALLERGIES: PENICILLIN, PANTOPRAZOLE Allergies [...] TAKE 30 MINUTES PRIOR TO FOOD. 11) PREDNISONE 1MG TAB TAKE FOUR TABLET S BY MOUTH ONCE A ACTIVE DAY 12) ROPINIROLE HCL 1MG TAB TAKE ONE TAB LET BY MOUTH AT ACTIVE BEDTIME 13) TAMSULOSIN HCL 0.4MG CAP TAKE ONE C APSULE BY MOUTH ACTIVE ONCE A DAY FOR PROSTATE. TAKE AT THE SAME TIME EACH DAY WITH FOOD. Non-VA Medications Status 1) Non-VA DIPHENHYDRAMINE HCL 25MG CAP 25MG MOUTH EVERY ACTIVE 6 HOURS NEEDED 2) Non-VA FOLIC ACID 1MG TAB 1MG MOUTH ONCE A DAY ACTIVE 15 Total Medications Compared newly ordered medications and [...] No - patient is not a diabetic [facility]-PAIN: Pain Documentation: Pain Assessment: Do you have pain now? ...Yes - updated pain score Have you had pain in the recent past? ...Yes - explain: Location: (specify location in comments) Pain Scale (0-10): 8 (10/25/2018 13:24) 5 Comment: "Painful but I can tolerate it" - R hand only to wrist, hand, fingers ...Intensity: ... Moderate - initially stated 9/10 then when told 9 or 10 is unbearable/excruciating, modified to 10 ...Onset/Duration: ... chronic ...Frequency: Continuous VISN 15-INFLUENZA IMMUNIZATION FY19: [id number] INFLUENZA IMMUNIZATION V1.0 Vaccine not given: Patient refused influenza vaccine. Patient provided CDC Vaccination Information Sheet handout and educated on the importance of receiving a flu vaccination. http://www.cdc.gov/vaccines/hcp/vis/vis-statements/flu.pdf Patient indicated inconvenient time. /es/ CAMRYN CAMPO RN Signed: 04/09/2019 13:27 [facility]
--- OUTSIDE RECORDS SUMMARY | 2019-12-04 22:04 | XMS REPORT | Encounter Summary ---
Author Author [facility] CARLOS sweeney Organization Department of [facility] Address [address] [place] [id number] Phone Unavailable Care Team Providers Care Market Editor Name Role Phone TARIQKJ PCP Unavailable Insurance [...] PLAN G MEDICARE SUPPLEMENT Dec PLAN G [id number] [phone] ROSALINACARLOS PATIENT MEDICARE (WNR) MEDICARE (M) PART A Dec 16, 2014 PART A [id number] [phone] ROSALINACARLOS PATIENT MEDICARE (WNR) MEDICARE (M) PART B Dec 16, 2014 PART B [id number] [phone] CARLOS ROMANO PATIENT MEDICO DENTAL INSURANCE DENTAL VISIONHEARING Dec 16, 2014 DENTAL VISIONHEAR [id number] [phone] CARLOS ROMANO PATIENT Selected Encounter This section includes the information on record at [place] for the Encounter. Date/Time Encounter Type Encounter Description Reason Provider Source Apr 02, 2019 03:31 PM Outpatient Encounter PRIMARY CARE/MEDICINE JENNIFER LINDSEY [facility], VISN 15 IHE Encounter Template Text not used by [place] Assessments - Encounter Diagnoses No Data Provided for This Section Plan of Treatment: Future Appointments (+ 6 months) and Future Tests (+/- 45 day s) The Plan of Treatment section includes future care activities for the patient fr om all [facility] facilities. This section includes future appointments and fu ture orders which are active, pending or scheduled. Future Appointments This section includes appointments that were scheduled t o occur 6 months from the date of the Encounter, up to a maximum of 20 appointme nts. The data comes from all [facility]. Appointment Date/Time Appointment Type Appointment Facili ty Name Apr 09, 2019 01:30 PM AMBULATORY - MEDICINE [facility] Apr 24, 2019 09:30 AM AMBULATORY - MED[facility] May 29, 2019 09:00 AM AMBULATORY - NONE [facility] [place] [facility] Aug 06, 2019 01:00 PM AMBULATORY MEDICINE [facility] Active, Pending, and Scheduled Orders This section [...] the Encounter. The data comes from all [facility]. Test Date/Time Test Type Test Details Facility Name Apr 02, 2019 12:00 AM Laboratory - Chemistry Order COMPREHEN SIVE METABOLIC PANEL GREEN TOP TUBE PLASMA [facility] Apr 02, 2019 12:00 AM Laboratory - Chemistry Order CBC & DIF F 5 ML LAVENDER TOP BLOOD [facility] Apr 02, 2019 12:00 AM Laboratory - Chemistry Order C-REACTIV E PROTEIN SST GEL SERUM [facility] Apr 02, 2019 10:11 AM Laboratory - Chemistry Order ERYTHROCY TE SEDIMENTATION RATE 5 ML [facility]ENDER [facility] Surgical Procedures: All associated to the [...] Range Comment Apr 02, 2019 10:11 AM [facility] LIPID PROFILE(HDL,TRI G,CHOL,LDL) Specimen Type: PLASMA No comment entered. CHOLESTEROL 170 mg/dL 0-200 TRIGS 85 mg/dL 0-150 HDL-CHOLESTEROL 64 mg/dL >40 LDL (CALC) 89.0 mg/dL 0-99.9 Apr 02, 2019 10:11 AM [facility] TSH Specimen Type: SERUM No comment entered. TSH 0.94 uIU/mL 0.47-5.00 Apr 02, 2019 10:11 AM [facility] PROSTATIC SPECIFIC AN TIGEN(TOTAL) Specimen Type: SERUM No comment entered. PROSTATIC SPECIFIC ANTIGEN(TOTAL) 1.73 ng/mL 0-4 Apr 02, 2019 10:11 AM [facility] URINALYSIS Specimen Type: URINE No comment entered. URINE COLOR Yellow SPECIFIC GRAVITY 1.010 1.005-1.030 UROBILINOGEN Negative mg/dL 0.1-1.0 URINE BILIRUBIN Negative Negative URINE KETONES Negative mg/dl Negative URINE GLUCOSE Negative mg/dL Negative URINE PROTEIN Negative mg/dl Negative-Tr juliana URINE PH 8.0 5-8 APPEARANCE,URINE Clear Clear URINE BLOOD Negative Negative URINE NITRITE Negative Negative LEUKOCYTE ESTERASE Negative Negative Apr 02, 2019 10:11 AM [facility] DRUGS OF ABUSE SCREEN Specimen Type: URINE No comment entered. AMPHETAMINE NEG Negative BARBITURATES NEG Negative BENZODIAZEPINES NEG Negative CANNABINOIDS NEG Negative COCAINE NEG Negative OPIATES >1000POS Negative PHENCYCLIDINE(PCP) NEG Negative *CREATININE,DRUG SCR 45.00 mg/dL METHADONE(UDS) NEG Negative OXYCODONE (URINE) NEG Negative ALCOHOL-URINE,RANDOM (MARCO,WI,EK) NEG mg/dL <10 Apr 02, 2019 10:11 AM [facility] HEMOGLOBIN A1C Specimen Type: BLOOD No comment entered. HEMOGLOBIN A1C 5.8 % 4.0-6.0 Apr 02, 2019 10:11 AM [facility] CBC & DIFF Specimen Type: BLOOD [...] Apr 02, 2019 10:11 AM [facility] COMPREHENSIVE METABOLI C PANEL Specimen Type: [...] Apr 02, 2019 10:11 AM [facility] C-REACTIVE PROTEIN Specimen Type: SERUM No [...] in the last 15 m [facility], and 2) all medications recorded in [...] FOR INHALATION ONCE 1 Nov 16, 2018 [id number] October 17, 2018 KJ POTTER [facility] ALBUTEROL SO4 90MCG/ACTUAT (CFC-F) INHL,ORAL,6.7GM Active INHALE 2 PUFFS BY ORAL INHALATION FOUR TIMES A DAY NEEDED - RINSE MOUTHPIECE FREQUENTLY TO PREVENT CLOGGING 1 Apr 24, 2020 [id number] October 18, 2019 KJ POTTER [facility] ALBUTEROL SO4 90MCG/ACTUAT (CFC-F) INHL,ORAL,6.7GM Discontin ued INHALE 2 PUFFS BY ORAL INHALATION FOUR TIMES A DAY NEEDED - RINSE MOUTHPIECE FREQUENTLY TO PREVENT CLOGGING 2 Apr 24, 2020 [id number] Apr 24, 2019 KJ POTTER [facility] BUDESONIDE 160MCG/FORMOTEROL FUM 4.5MCG/SPRAY INHL,ORAL,10.2 GM Active INHALE 2 PUFFS BY ORAL INHALATION TWO TIMES A DAY FOR BREATHING. SHAKE WELL. RINSE MOUTH AND SPIT AFTER EACH USE. 2 Apr 24, 2020 [id number] October 17, 2019 KJ JOSHI [facility] CALCIUM 500MG ([place] CARBONATE-1.25GM) TAB Active: Susp TAKE ONE TABLET BY MOUTH TWO TIMES A DAY 180 Nov 20, 2020 [id number] Jan 09, 2020 KJ POTTER [facility] CALCIUM 500MG ([place] CARBONATE-1.25GM) TAB Discontinued TAKE ONE TABLET BY MOUTH TWO TIMES A DAY 180 Jan 08, 2020 [id number] October 21, 2019 KJ POTTER [facility] [place] [facility] CALCIUM 500MG ([place] CARBONATE-1.25GM) TAB Discontinued TAKE ONE TABLET BY MOUTH TWO TIMES A DAY 180 Dec 29, 2018 [id number] Oct 01, 2018 NASH KULKARNI [facility] CARBIDOPA 25MG/LEVODOPA 100MG TAB Active TAKE 2 TABLETS BY MOUTH FOUR TIMES A DAY FOR PARKINSON'S DISEASE. DO NOT TAKE WITH FOOD. 240 Nov 24, 2020 [id number] Nov 27, 2019 ALLEGRA HOWE [facility] [place] [facility] CARBIDOPA 25MG/LEVODOPA 100MG TAB Discontinued TAKE T WO TABLETS BY MOUTH FIVE TIMES DAILY FOR PARKINSON'S DISEASE. DO NOT TAKE WITH FOOD. 600 Jul 02, 2020 [id number] Nov 19, 2019 [facility] [place] [facility] CARBIDOPA 25MG/LEVODOPA 100MG TAB Discontinued TAKE 2 TABLETS BY MOUTH FIVE TIMES DAILY FOR PARKINSON'S DISEASE. DO NOT TAKE WITH FOOD. 300 Jun 30, 2020 [id number] Jul 01, 2019 [facility] [place] [facility] CARBIDOPA 25MG/LEVODOPA 100MG TAB Discontinued TAKE 2 TABLETS BY MOUTH FOUR TIMES A DAY FOR PARKINSON'S DISEASE. DO NOT TAKE WITH FOOD. 240 Jun 24, 2020 [id number] Jun 26, 2019 [facility] [place] [facility] CARBIDOPA 25MG/LEVODOPA 100MG TAB Discontinued TAKE 2 TABLETS BY MOUTH FOUR TIMES A DAY FOR PARKINSON'S DISEASE. DO NOT TAKE WITH FOOD. 240 Dec 25, 2019 [id number] May 15, 2019 [facility] [place] [facility] CARBIDOPA 25MG/LEVODOPA 100MG TAB Discontinued TAKE 2 TABLETS BY MOUTH FOUR TIMES A DAY FOR PARKINSON'S DISEASE. DO NOT TAKE WITH FOOD. 240 Jun 07, 2019 [id number] Nov 18, 2018 [facility] [place] [facility] CHOLECALCIFEROL 25MCG (1,000UNIT) TAB Active: Susp TA KE TWO TABLETS BY MOUTH ONCE A DAY FOR VITAMIN D DEFICIENCY 200 Nov 20, 2020 [id number] Dec 172019 [facility] CHOLECALCIFEROL 25MCG (1,000UNIT) TAB Discontinued TA KE TWO TABLETS BY MOUTH ONCE A DAY FOR VITAMIN D DEFICIENCY 200 Dec 25, 2019 [id number] October 0 2019 [facility] [place] CHOLECALCIFEROL 25MCG (1,000UNIT) TAB Discontinued TA KE TWO TABLETS BY MOUTH ONCE A DAY FOR VITAMIN D DEFICIENCY 200 Oct 10, 2018 [id number] Aug 172018 [facility] CLOPIDOGREL BISULFATE 75MG TAB Active: Susp TAKE ONE TABLET BY MOUTH ONCE A DAY TO PREVENT BLOOD CLOTS 90 Apr 24, 2020 [id number] Dec 19, 2019 [facility] CLOPIDOGREL BISULFATE 75MG TAB Discontinued TAKE ONE TABLET BY MOUTH ONCE A DAY TO PREVENT BLOOD CLOTS 90 Jun 01, 2019 [id number] Mar 13, 2019 TARIQKJ [facility] [place] [facility] DIPHENHYDRAMINE HCL 25MG CAP Non-VA TAKE 1 CAPSULE BY MOUTH EVERY 6 HOURS NEEDED Non-VA Documented by: KJ POTTER nted at: [facility] FLUDROCORTISONE ACETATE 0.1MG TAB Active TAKE ONE TABLET BY M OUTH ONCE A DAY 90 Nov 19, 2020 [id number] Nov 20, 2019 [facility] [place] [facility] FOLIC ACID 1MG TAB Non- VA TAKE ONE TABLET BY MOUTH ONCE A DAY N on-VA Documented by: KJ POTTER nted at: [facility] GABAPENTIN 300MG CAP Active TAKE 1 CAPSULE BY M OUTH 5 TIMES A DAY FOR PAIN AND TREMORS. 300 October 17, 2020 [id number] October 18, 2019 TARIQKJ [facility] GABAPENTIN 300MG CAP Discontinued TAKE ONE CAPSULE BY MOUTH FOUR TIMES A DAY FOR PAIN AND TREMORS. 240 Jan 08, 2020 [id number] Oct 14, 2019 [facility] [place] [facility] GABAPENTIN 300MG CAP Discontinued TAKE ONE CAPSULE BY MOUTH FOUR TIMES A DAY FOR PAIN AND TREMORS. 240 Mar 08, 2019 [id number] Jan 07, 2019 [facility] [place] [facility] HYDROCODONE 10MG/ACETAMINOPHEN 325MG TAB Active TAKE ONE TABLET (10/325MG) BY MOUTH THREE TIMES A DAY NEEDED FOR PAIN CAUTION: DO NOT EXCEED 4000MG/DAY TOTAL OF ACETAMINOPHEN (APAP) FROM ALL MEDS 90 Dec 20, 2019 [id number] Nov 21, 2019 [facility] HYDROCODONE 10MG/ACETAMINOPHEN 325MG TAB Discontinued TAKE ONE TABLET (10/325MG) BY MOUTH THREE TIMES A DAY NEEDED FOR PAIN CAUTION: DO NOT EXCEED 4000MG/DAY TOTAL OF ACETAMINOPHEN (APAP) FROM ALL MEDS 90 Sep 17, 2 020 [id number] Sep 04, 2019 [facility] [place] [facility] HYDROCODONE 10MG/ACETAMINOPHEN 325MG TAB Discontinued TAKE ONE TABLET BY MOUTH THREE TIMES A DAY NEEDED FOR PAIN CAUTION: DO NOT EXCEED 4000MG/DAY TOTAL OF ACETAMINOPHEN (APAP) FROM ALL MEDS 90 Jul 26, 2019 [id number] Jun 26, 2019 [facility] [place] [facility] HYDROCODONE 10MG/ACETAMINOPHEN 325MG TAB Discontinued TAKE ONE TABLET BY MOUTH THREE TIMES A DAY NEEDED FOR PAIN CAUTION: DO NOT EXCEED 4000MG/DAY TOTAL OF ACETAMINOPHEN (APAP) FROM ALL MEDS 90 Jun 27, 2019 [id number] May 29, 2019 [facility] [place] [facility] HYDROCODONE 10MG/ACETAMINOPHEN 325MG TAB Discontinued TAKE ONE TABLET BY MOUTH THREE TIMES A DAY NEEDED FOR PAIN CAUTION: DO NOT EXCEED 4000MG/DAY TOTAL OF ACETAMINOPHEN (APAP) FROM ALL MEDS 90 May 08, 2019 [id number] Apr 08, 2019 TARIQ,[facility] [place] HYDROCODONE 10MG/ACETAMINOPHEN 325MG TAB Discontinued TAKE ONE TABLET BY MOUTH THREE TIMES A DAY NEEDED FOR PAIN CAUTION: DO NOT EXCEED 4000MG/DAY TOTAL OF ACETAMINOPHEN (APAP) FROM ALL MEDS 90 Mar 28, 2019 [id number] Feb 26, 2019 [facility] [place] [facility] HYDROCODONE 10MG/ACETAMINOPHEN 325MG TAB Discontinued TAKE ONE TABLET BY MOUTH THREE TIMES A DAY NEEDED FOR PAIN CAUTION: DO NOT EXCEED 4000MG/DAY TOTAL OF ACETAMINOPHEN (APAP) FROM ALL MEDS 90 Feb 06, 2019 [id number] Jan 07, 2019 [facility] [place] [facility] HYDROCODONE 10MG/ACETAMINOPHEN 325MG TAB Discontinued TAKE ONE TABLET BY MOUTH THREE TIMES A DAY NEEDED FOR PAIN CAUTION: DO NOT EXCEED 4000MG/DAY TOTAL OF ACETAMINOPHEN (APAP) FROM ALL MEDS 90 Dec 05, 2018 [id number] November 05, 2018 [facility] [place] [facility] HYDROCODONE 10MG/ACETAMINOPHEN 325MG TAB Discontinued TAKE ONE TABLET BY MOUTH THREE TIMES A DAY NEEDED FOR PAIN CAUTION: DO NOT EXCEED 4000MG/DAY TOTAL OF ACETAMINOPHEN (APAP) FROM ALL MEDS 90 October 25, 2018 [id number] Sep 25, 2018 [facility] [place] [facility] HYDROCODONE 10MG/ACETAMINOPHEN 325MG TAB TAKE ONE TABLET (10/325MG) BY MOUTH THREE TIMES A DAY NEEDED FOR PAIN CAUTION: DO NOT EXCEED 4000MG/DAY TOTAL OF ACETAMINOPHEN (APAP) FROM ALL MEDS 90 November 16, 2019 [id number] October 18, 2019 [facility] M[facility] 2.5MG TAB Active TAKE SEVEN TABLETS BY MOUTH EVERY WEEK 90 October 17, 2020 [id number] November 04, 2019 [facility] METHOTREXATE NA 2.5MG TAB Discontinued TAKE SEVEN TABLETS BY MOUTH EVERY WEEK 90 May 09, 2020 [id number] Aug 16, 2019 NASH KULKARNI [facility] METHOTREXATE NA 2.5MG TAB Discontinued TAKE SEVEN TABLETS BY MOUTH EVERY WEEK 90 Aug 04, 2019 [id number] Feb 22, 2019 YOU GOMEZ [facility] [place] [facility] NORTRIPTYLINE HCL 10MG CAP Active TAKE 2 CAPSULES BY MO UTH AT BEDTIME NEEDED 120 Apr 02, 2020 [id number] Nov 20, 2019 [facility] [place] [facility] NORTRIPTYLINE HCL 10MG CAP Discontinued TAKE 2 CAPSUL ES BY MOUTH AT BEDTIME NEEDED 120 Mar 20, 2019 [id number] Jan 23, 2019 [facility] OMEPRAZOLE 20MG CAP,EC Active TAKE 1 CAPSULE BY MOUTH EVERY MORNING TO LOWER STOMACH ACID. TAKE 30 MINUTES PRIOR TO FOOD. 90 October 17, 2020 [id number] October 21, 2019 [facility] OMEPRAZOLE 20MG CAP,EC Discontinued TAKE 1 CAPSULE BY MOUTH EVERY MORNING TO LOWER STOMACH ACID. TAKE 30 MINUTES PRIOR TO FOOD. 90 Oct 02, 2019 [id number] Aug 02, 2019 [facility] [place] [facility] PREDNISONE 1MG TAB Discontinued TAKE THREE TABLETS B Y MOUTH ONCE A DAY FOR INFLAMMATION AND IMMUNE RESPONSE. TAKE WITH FOOD OR MILK. 270 Fe 2019 [id number] Apr 24, 2019 [facility] PREDNISONE 1MG TAB Discontinued TAKE FOUR TABLETS BY MOUTH ONCE A D AY 360 Apr 22, 2019 [id number] Jan 24, 2019 [facility] [place] [facility] PREDNISONE 1MG TAB Discontinued TAKE FOUR TABLETS BY MOUTH ONCE A D AY 360 Dec 29, 2018 [id number] Oct 01, 2018 NASH KULKARNI [facility] PREDNISONE 1MG TAB TAKE THREE TABLETS B Y MOUTH ONCE A DAY FOR INFLAMMATION AND IMMUNE RESPONSE. TAKE WITH FOOD OR MILK. 270 Ap r 2019 [id number] Jul 13, 2019 [facility] [place] [facility] PREDNISONE 5MG TAB Discontinued TAKE ONE TABLET BY MOUTH ONCE A DAY WITH FOOD 60 Aug 01, 2019 [id number] Sep 25, 2018 KJ POTTER [facility] [place] [facility] ROPINIROLE HCL 1MG TAB Active TAKE ONE TABLET BY MOUTH AT BED TIME 90 October 17, 2020 [id number] Nov 25, [address] [facility] [facility] ROPINIROLE HCL 1MG TAB Discontinued TAKE ONE TABLET BY MOUTH AT BED TIME 90 Dec 05, 2019 [id number] Sep 03, 2019 KRYSTAL DEJESUS [facility] [place] [facility] ROPINIROLE HCL 1MG TAB Discontinued TAKE ONE TABLET BY MOUTH AT BED TIME 90 Dec 13, 2018 [id number] Sep 12, 2018 TARIQ,[facility] [place] [facility] TAMSULOSIN HCL 0.4MG CAP Active: Susp TAKE 1 CAPSULE BY MOUTH ONCE A DAY FOR PROSTATE. TAKE AT THE SAME TIME EACH DAY WITH FOOD. 90 Sep 30 1 [id number] Dec 20, 2019 KJ POTTER [facility] [place] [facility] TAMSULOSIN HCL 0.4MG CAP Discontinued TAKE 1 CAPSULE BY MOUTH ONCE A DAY FOR PROSTATE. TAKE AT THE SAME TIME EACH DAY WITH FOOD. 90 Sep 12 0 [id number] Jun 24, 2019 LIS BRUCE [facility] [place] [facility] Problems (Conditions): All historical [...] ent(s) Provider Source Abnormal radiologic density Active [id number] [facility] KJ PARISI [facility] [place] [facility] Allergic rhinitis Active 94452770 LADY SALAZAR [facility] [place] [facility] Anemia Active [id number] [facility] [place] [facility] Chest pain (SNOMED CT 43036026) Active 786.50 [facility] [place] [facility] Chondrocalcinosis Active 896848198 YOU GOMEZ [facility] [place] [facility] Chronic obstructive lung disease Active 54286515 [facility] [place] Coronary artery disease Active 36975612 Angella LINDSEY NICHOLAS Pope [facility] [place] [facility] Cough Active 18156442 LADY SALAZAR [facility] [place] [facility] Cough (SNOMED CT 41108063) Active 786.2 KJ BARRON [facility] [place] [facility] Dysarthria (SNOMED CT 8135252) Active 784.51 M KJ WONG [facility] [place] [facility] Dyspnea (SNOMED CT 993540979) Active 786.09 KJ BARKSDALE [facility] [place] [facility] Eruption due to drug Active 59740628 TARIQAbdiaziz TORY [facility] [place] [facility] Gastroesophageal reflux disease Active 711117120 KJ POTTER [facility] [place] [facility] Hallux valgus AND bunion Active 310565913 ALEXANDRO DangeloDEISY Crane [facility] [place] [facility] Joint pain (SNOMED CT 85136534) Active 719.40 DEISY CONTRERAS Royce [facility] [place] [facility] Joint swelling (SNOMED CT 981488961) Active 719.00 KJ POTTER [facility] [place] [facility] Knee pain Active 63056088 ROSALIAJENNIFER [facility] [place] [facility] Muscle weakness (SNOMED CT 18762213) Active 728.87 KJ POTTER [facility] [place] [facility] Neuropathy Active 645927181 KJ POTTER [facility] [place] [facility] Osteoarthritis Active 715.36 DYAN SERVIN [facility] [place] [facility] Parkinson's disease Active 49004265 TARIQETHAN [facility] [place] [facility] Peripheral Neuropathy Active 356.9 DASARAJU,P URUSHOTHAMA V [facility] [place] [facility] Personal History of Exposure to Agent Glenn Active V15.89 DEISY CONTRERAS Royce [facility] [place] [facility] Polyp of colon (SNOMED CT 97653292) Active 211.3 KJ POTTER [facility] [place] [facility] Restless legs Active 26469495 PATRICK WHITE [facility] [place] [facility] Rheumatoid arthritis Active 60841138 Abdiaziz POTTER [facility] [place] [facility] Screening, Malignancy Active V76.89 LISSETH TOLEDO [facility] [place] [facility] Sleep apnea Active 73981811 TARIQKJ ADEN RN [facility] [place] [facility] Synovial cyst of popliteal space (SNOMED CT 83848878) Active 727.51 KJ POTTER [facility] [place] [facility] Tobacco dependence in remission Active 913663475 KJ POTTER [facility] [place] [facility] Tobacco use Active 343400880 JENNIFER LINDSEY [facility] [place] [facility] Tremor Active 54914346 JENNIFER LINDSEY K S [facility] [place] [facility] Unresolved Active 50159915 JENNIFER LINDSEY [facility] [place] [facility] Unresolved Active 61398179 JENNIFER LINDSEY [facility] [place] [facility] Radiology Reports: +/- 30 days of the encounter No Data Provided for This Section Pathology Reports: +/- 30 days of the encounter No Data Provided for This Section Encounter Notes: All associated encounter notes No Data Provided for This Section
--- OUTSIDE RECORDS SUMMARY | 2019-12-04 22:04 | XMS REPORT | Encounter Summary ---
Author Author Department of [facility] CARLOS sweeney Organization Department of [facility] Address [address] [place] [address] Phone Unavailable Care Team Providers Care Claims Service Representative Name Role Phone KJ POTTER PCP Unavailable [...] PLAN G MEDICARE SUPPLEMENT Dec PLAN G [id number] [phone] CARLOS ROMANO PATIENT MEDICARE (WNR) MEDICARE (M) PART A Dec 16, 2014 PART A [id number] CARLOS ROMANO PATIENT MEDICARE (WNR) MEDICARE (M) PART B Dec 16, 2014 PART B [id number] CARLOS ROMANO PATIENT MEDICO DENTAL INSURANCE DENTAL VISIONHEARING Dec 16, 2014 DENTAL VISIONHEAR [id number] [phone] ROSALINACARLOS PATIENT Selected Encounter This section includes the information on record at CT for the Encounter. Date/Time Encounter Type Encounter Description Reason Provider Source Apr 04, 2019 09:15 AM Outpatient Encounter CLINICAL PHARMACY ICD -10-CM M06.9 Rheumatoid arthritis, unspecified with Provider Comments: Rheumatoid arthritis ([facility] [id number]) BERRY AVITIA [facility] Freed IV IHE Encounter Template Text not used by VA Assessments - Encounter Diagnoses This section includes the primary and secondary diag noses documented for the Encounter. Date/Time Primary/Secondary Diagnosis Diagnosis Name Provider Source Apr 04, 2019 09:16 AM PRIMARY Rheumatoid arthritis, unsp ecified BERRY AVITIA [facility] [place] [facility] Apr 04, 2019 09:16 AM SECONDARY Idiopathic progressive ke ropathy BERRY AVITIA [facility] [place] [facility] Apr 04, 2019 09:16 AM SECONDARY Pain in unspecified knee Chad AVITIA [facility] [place] [facility] Plan of Treatment: Future Appointments (+ 6 months) and Future Tests (+/- 45 day s) The Plan of Treatment section includes future care activities for the patient fr om all CT treatment facilities. This section includes future appointments [...] PM AMBULATORY - MEDICINE [facility] Apr 24, 2019 09:30 AM AMBULATORY - MEDIC[facility] May 29, 2019 09:00 AM AMBULATORY - NONE [facility] [place] Aug 06, 2019 01:00 PM AMBULATORY - MEDICINE [facility] Active, Pending, and Scheduled Orders This section [...] METABOLIC PANEL GREEN TOP TUBE PLASMA SP [facility] Apr 02, 2019 12:00 AM Laboratory - Chemistry Order CBC & DIF F 5 ML LAVENDER TOP BLOOD [facility] Apr 02, 2019 12:00 AM Laboratory - Chemistry Order C-REACTIV E PROTEIN SST GEL SERUM SP [facility] Apr 02, 2019 10:11 AM Laboratory - Chemistry Order ERYTHROCY TE SEDIMENTATION RATE 5 ML LAVENDER TOP BLOOD [facility] Surgical Procedures: All associated to the encounter No Data Provided for This Section Lab Results: +/- 30 days of the encounter This section includes the Chemistry and Hematology Lab R esults on record with CT for the patient. Radiology Reports and Pathology Report s are provided separately, in subsequent sections. Lab Results This section contains the Chemistry/Hematology Results juan t were resulted 30 days before or 30 days after the date of the Encounter. Date/Time Source Result Type Result - Unit Interpretation Reference Range Comment Apr 02, 2019 10:11 AM [facility] LIPID PROFILE(HDL,TRI G,CHOL,LDL) Specimen Type: PLASMA No comment entered. CHOLESTEROL 170 mg/dL 0-200 TRIGS 85 mg/dL 0-150 HDL-CHOLESTEROL 64 mg/dL >40 LDL (CALC) 89.0 mg/dL 0-99.9 Apr 02, 2019 10:11 AM [facility] TSH Specimen Type: SERUM No comment entered. TSH 0.94 uIU/mL 0.47-5.00 Apr 02, 2019 10:11 AM [facility] PROSTATIC SPECIFIC AN TIGEN(TOTAL) Specimen Type: SERUM No comment entered. PROSTATIC SPECIFIC ANTIGEN(TOTAL) 1.73 ng/mL 0-4 Apr 02, 2019 10:11 AM [facility] URINALYSIS Specimen Type: URINE No comment entered. URINE COLOR Yellow SPECIFIC GRAVITY 1.010 1.005-1.030 UROBILINOGEN Negative mg/dL 0.1-1.0 URINE BILIRUBIN Negative Negative URINE KETONES Negative mg/dl Negative URINE GLUCOSE Negative mg/dL Negative URINE PROTEIN Negative mg/dl Negative-Tr juliana URINE PH 8.0 5-8 APPEARANCE,URINE Clear Clear URINE BLOOD Negative Negative URINE NITRITE Negative Negative LEUKOCYTE ESTERASE Negative Negative Apr 02, 2019 10:11 AM [facility] DRUGS OF ABUSE SCREEN Specimen Type: URINE No comment entered. AMPHETAMINE NEG Negative BARBITURATES NEG Negative BENZODIAZEPINES NEG Negative CANNABINOIDS NEG Negative COCAINE NEG Negative OPIATES >1000POS Negative PHENCYCLIDINE(PCP) NEG Negative *CREATININE,DRUG SCR 45.00 mg/dL METHADONE(UDS) NEG Negative OXYCODONE (URINE) NEG Negative ALCOHOL-URINE,RANDOM (MARCO,WI,EK) NEG mg/dL <10 Apr 02, 2019 10:11 AM [facility] HEMOGLOBIN A1C Specimen Type: BLOOD No comment entered. HEMOGLOBIN A1C 5.8 % 4.0-6.0 Apr 02, 2019 10:11 AM [facility] CBC & DIFF Specimen Type: BLOOD [...] Apr 02, 2019 10:11 AM [facility] COMPREHENSIVE METABOLI C PANEL Specimen Type: [...] Apr 02, 2019 10:11 AM [facility] C-REACTIVE PROTEIN Specimen Type: SERUM No [...] patient. The data comes from a ll [place] treatment facilities. It does not list Allergies/ADRs that were removed or entered in error. Some allergies/ADRs may be reported in t he Immunization section. Allergen Event Date Event Type Reaction(s) Severity Source PANTOPRAZOLE Oct 01, 2018 Propensity to adverse reactions to drug (disorder) Eruption [facility], [facility] 15 PENICILLIN Jul 17, 2012 Propensity to adverse reactions to drug (disorder) Peripheral edema [facility] 15 Medications: VA dispensed (-15 months) and Non-VA Documented (Obtained Outside V A) Section Date Range: 1) prescriptions processed by a CT pharmacy in the last 15 m [facility], and 2) all medications recorded in the CT medical record as "non-VA medic ations". Pharmacy terms refer to CT pharmacy's work on prescriptions. VA patient s are advised to take their medications as instructed by their health care team. The data comes from all [place] treatment facilities. Glossary of Pharmacy Terms:Active = A prescription that can be filled at the local [place] pharmacy.Active: On Hold = An active prescription that will not be filled until pharmacy resolves the issue.Active: Susp = An active prescription that is not scheduled to be filled yet.Clinic Order = A medication received during a visit to a CT clinic or emergency department (currently not available).Discontinued [...] may be a prescription from either the CT or other providers that was filled outside the [place]. Or, it may be an over the [...] FOR INHALATION ONCE 1 Nov 16, 2018 [id number] October 17, 2018 KJ POTTER [facility] ALBUTEROL SO4 90MCG/ACTUAT (CFC-F) INHL,ORAL,6.7GM Active INHALE 2 PUFFS BY ORAL INHALATION FOUR TIMES A DAY NEEDED - RINSE MOUTHPIECE FREQUENTLY TO PREVENT CLOGGING 1 Apr 24, 2020 [id number] October 18, 2019 KJ POTTER [facility] ALBUTEROL SO4 90MCG/ACTUAT (CFC-F) INHL,ORAL,6.7GM Discontin ued INHALE 2 PUFFS BY ORAL INHALATION FOUR TIMES A DAY NEEDED - RINSE MOUTHPIECE FREQUENTLY TO PREVENT CLOGGING 2 Apr 24, 2020 [id number] Apr 24, [address] [facility] BUDESONIDE 160MCG/FORMOTEROL FUM 4.5MCG/SPRAY INHL,ORAL,10.2 GM Active INHALE 2 PUFFS BY ORAL INHALATION TWO TIMES A DAY FOR BREATHING. SHAKE WELL. RINSE MOUTH AND SPIT AFTER EACH USE. 2 Apr 24, 2020 [id number] October 17, 2019 KJ JOSHI [facility] CALCIUM 500MG (CA CARBONATE-1.25GM) TAB Active: Susp TAKE ONE TABLET BY MOUTH TWO TIMES A DAY 180 Nov 20, 2020 [id number] Jan 09, 2020 KJ POTTER [facility] CALCIUM 500MG (CA CARBONATE-1.25GM) TAB Discontinued TAKE ONE TABLET BY MOUTH TWO TIMES A DAY 180 Jan 08, 2020 [id number] October 21, 2019 KJ POTTER [facility] [place] CALCIUM 500MG (CA CARBONATE-1.25GM) TAB Discontinued TAKE ONE TABLET BY MOUTH TWO TIMES A DAY 180 Dec 29, 2018 [id number] Oct 01, 2018 NASH KULKARNI [facility] CARBIDOPA 25MG/LEVODOPA 100MG TAB Active TAKE 2 TABLETS BY MOUTH FOUR TIMES A DAY FOR PARKINSON'S DISEASE. DO NOT TAKE WITH FOOD. 240 Nov 24, 2020 [id number] Nov 27, 2019 [facility] [place] CARBIDOPA 25MG/LEVODOPA 100MG TAB Discontinued TAKE T WO TABLETS BY MOUTH FIVE TIMES DAILY FOR PARKINSON'S DISEASE. DO NOT TAKE WITH FOOD. 600 Jul 02, 2020 [id number] Nov 19, 2019 [facility] [place] CARBIDOPA 25MG/LEVODOPA 100MG TAB Discontinued TAKE 2 TABLETS BY MOUTH FIVE TIMES DAILY FOR PARKINSON'S DISEASE. DO NOT TAKE WITH FOOD. 300 Jun 30, 2020 [id number] Jul 01, 2019 [facility] [place] CARBIDOPA 25MG/LEVODOPA 100MG TAB Discontinued TAKE 2 TABLETS BY MOUTH FOUR TIMES A DAY FOR PARKINSON'S DISEASE. DO NOT TAKE WITH FOOD. 240 Jun 24, 2020 [id number] Jun 26, 2019 [facility] [place] [facility] CARBIDOPA 25MG/LEVODOPA 100MG TAB Discontinued TAKE 2 TABLETS BY MOUTH FOUR TIMES A DAY FOR PARKINSON'S DISEASE. DO NOT TAKE WITH FOOD. 240 Dec 25, 2019 [id number] May 15, 2019 [facility] [place] [facility] CARBIDOPA 25MG/LEVODOPA 100MG TAB Discontinued TAKE 2 TABLETS BY MOUTH FOUR TIMES A DAY FOR PARKINSON'S DISEASE. DO NOT TAKE WITH FOOD. 240 Jun 07, 2019 [id number] Nov 18, 2018 [facility] [place] CHOLECALCIFEROL 25MCG (1,000UNIT) TAB Active: Susp TA KE TWO TABLETS BY MOUTH ONCE A DAY FOR VITAMIN D DEFICIENCY 200 Nov 20, 2020 [id number] Dec 172019 KJ POTTER [facility] CHOLECALCIFEROL 25MCG (1,000UNIT) TAB Discontinued TA KE TWO TABLETS BY MOUTH ONCE A DAY FOR VITAMIN D DEFICIENCY 200 Dec 25, 2019 [id number] October [facility] [place] CHOLECALCIFEROL 25MCG (1,000UNIT) TAB Discontinued TA KE TWO TABLETS BY MOUTH ONCE A DAY FOR VITAMIN D DEFICIENCY 200 Oct 10, 2018 [id number] Aug 172018 [facility] CLOPIDOGREL BISULFATE 75MG TAB Active: Susp TAKE ONE TABLET BY MOUTH ONCE A DAY TO PREVENT BLOOD CLOTS 90 Apr 24, 2020 [id number] Dec 19, 2019 [facility] CLOPIDOGREL BISULFATE 75MG TAB Discontinued TAKE ONE TABLET BY MOUTH ONCE A DAY TO PREVENT BLOOD CLOTS 90 Jun 01, 2019 [id number] Mar 13, 2019 [facility] [place] DIPHENHYDRAMINE HCL 25MG CAP Non-VA TAKE 1 CAPSULE BY MOUTH EVERY 6 HOURS NEEDED Non-VA Documented by: KJ POTTER nted at: [facility] FLUDROCORTISONE ACETATE 0.1MG TAB Active TAKE ONE TABLET BY M OUTH ONCE A DAY 90 Nov 19, 2020 [id number] Nov 20, 2019 [facility] [place] FOLIC ACID 1MG TAB Non- VA TAKE ONE TABLET BY MOUTH ONCE A DAY N on-VA Documented by: KJ POTTER nted at: [facility] GABAPENTIN 300MG CAP Active TAKE 1 CAPSULE BY M OUTH 5 TIMES A DAY FOR PAIN AND TREMORS. 300 October 17, 2020 [id number] October 18, 2019 [facility] GABAPENTIN 300MG CAP Discontinued TAKE ONE CAPSULE BY MOUTH FOUR TIMES A DAY FOR PAIN AND TREMORS. 240 Jan 08, 2020 [id number] Oct 14, 2019 [facility] [place] GABAPENTIN 300MG CAP Discontinued TAKE ONE CAPSULE BY MOUTH FOUR TIMES A DAY FOR PAIN AND TREMORS. 240 Mar 08, 2019 [id number] Jan 07, 2019 [facility] [place] [...] ALL MEDS 90 Sep 17, 2 020 [id number] Sep 04, 2019 [facility] [place] [facility] HYDROCODONE 10MG/ACETAMINOPHEN 325MG TAB Discontinued TAKE ONE TABLET BY MOUTH THREE TIMES A DAY NEEDED FOR PAIN CAUTION: DO NOT EXCEED 4000MG/DAY TOTAL OF ACETAMINOPHEN (APAP) FROM ALL MEDS 90 Jul 26, 2019 [id number] Jun 26, 2019 [facility] [place] [facility] HYDROCODONE 10MG/ACETAMINOPHEN 325MG TAB Discontinued TAKE ONE TABLET BY MOUTH THREE TIMES A DAY NEEDED FOR PAIN CAUTION: DO NOT EXCEED 4000MG/DAY TOTAL OF ACETAMINOPHEN (APAP) FROM ALL MEDS 90 Jun 27, 2019 [id number] May 29, 2019 [facility] [place] [facility] HYDROCODONE 10MG/ACETAMINOPHEN 325MG TAB Discontinued TAKE ONE TABLET BY MOUTH THREE TIMES A DAY NEEDED FOR PAIN CAUTION: DO NOT EXCEED 4000MG/DAY TOTAL OF ACETAMINOPHEN (APAP) FROM ALL MEDS 90 May 08, 2019 [id number] Apr 08, 2019 [facility] [place] [facility] HYDROCODONE 10MG/ACETAMINOPHEN 325MG TAB Discontinued TAKE ONE TABLET BY MOUTH THREE TIMES A DAY NEEDED FOR PAIN CAUTION: DO NOT EXCEED 4000MG/DAY TOTAL OF ACETAMINOPHEN (APAP) FROM ALL MEDS 90 Mar 28, 2019 [id number] Feb 26, 2019 [facility] [place] [facility] HYDROCODONE 10MG/ACETAMINOPHEN 325MG TAB Discontinued TAKE ONE TABLET BY MOUTH THREE TIMES A DAY NEEDED FOR PAIN CAUTION: DO NOT EXCEED 4000MG/DAY TOTAL OF ACETAMINOPHEN (APAP) FROM ALL MEDS 90 Feb 06, 2019 [id number] Jan 07, 2019 [facility] [place] [facility] HYDROCODONE 10MG/ACETAMINOPHEN 325MG TAB Discontinued TAKE ONE TABLET BY MOUTH THREE TIMES A DAY NEEDED FOR PAIN CAUTION: DO NOT EXCEED 4000MG/DAY TOTAL OF ACETAMINOPHEN (APAP) FROM ALL MEDS 90 Dec 05, 2018 [id number] November 05, 2018 [facility] [place] HYDROCODONE 10MG/ACETAMINOPHEN 325MG TAB Discontinued TAKE ONE TABLET BY MOUTH THREE TIMES A DAY NEEDED FOR PAIN CAUTION: DO NOT EXCEED 4000MG/DAY TOTAL OF ACETAMINOPHEN (APAP) FROM ALL MEDS 90 October 25, 2018 [id number] Sep 25, 2018 [facility] [place] HYDROCODONE 10MG/ACETAMINOPHEN 325MG TAB TAKE ONE TABLET (10/325MG) BY MOUTH THREE TIMES A DAY NEEDED FOR PAIN CAUTION: DO NOT EXCEED 4000MG/DAY TOTAL OF ACETAMINOPHEN (APAP) FROM ALL MEDS 90 November 16, 2019 [id number] October 18, 2019 [facility] METHOTREXATE NA 2.5MG TAB Active TAKE SEVEN TABLETS BY MOUTH EVERY WEEK 90 October 17, 2020 [id number] November 04, 2019 [facility] METHOTREXATE NA 2.5MG TAB Discontinued TAKE SEVEN TABLETS BY MOUTH EVERY WEEK 90 May 09, 2020 [id number] Aug 16, 2019 NASH KUKLARNI [facility] METHOTREXATE NA 2.5MG TAB Discontinued TAKE SEVEN TABLETS BY MOUTH EVERY WEEK 90 Aug 04, 2019 [id number] Feb 22, 2019 YOU GOMEZ [facility] [place] NORTRIPTYLINE HCL 10MG CAP Active TAKE 2 CAPSULES BY MO UTH AT BEDTIME NEEDED 120 Apr 02, 2020 [id number] Nov 20, 2019 [facility] [place] NORTRIPTYLINE HCL 10MG CAP Discontinued TAKE 2 CAPSUL ES BY MOUTH AT BEDTIME NEEDED 120 Mar 20, 2019 [id number] Jan 23, 2019 [facility] OMEPRAZOLE 20MG CAP,EC Active TAKE 1 CAPSULE BY MOUTH EVERY MORNING TO LOWER STOMACH ACID. TAKE 30 MINUTES PRIOR TO FOOD. 90 October 17, 2020 [id number] October 21, 2019 [facility] OMEPRAZOLE 20MG CAP,EC Discontinued TAKE 1 CAPSULE BY MOUTH EVERY MORNING TO LOWER STOMACH ACID. TAKE 30 MINUTES PRIOR TO FOOD. 90 Oct 02, 2019 [id number] Aug 02, 2019 [facility] [place] PREDNISONE 1MG TAB Discontinued TAKE THREE TABLETS B Y MOUTH ONCE A DAY FOR INFLAMMATION AND IMMUNE RESPONSE. TAKE WITH FOOD OR MILK. 270 2019 [id number] Apr 24, 2019 [facility] PREDNISONE 1MG TAB Discontinued TAKE FOUR TABLETS BY MOUTH ONCE A D AY 360 Apr 22, 2019 [id number] Jan 24, [address] [facility] [place] PREDNISONE 1MG TAB Discontinued TAKE FOUR TABLETS BY MOUTH ONCE A D AY 360 Dec 29, 2018 [id number] Oct 01, 2018 NASH KULKARNI ToshiaJose DARLEEN Jenna [facility] PREDNISONE 1MG TAB TAKE THREE TABLETS B Y MOUTH ONCE A DAY FOR INFLAMMATION AND IMMUNE RESPONSE. TAKE WITH FOOD OR MILK. 270 Ap r 2019 [id number] Jul 13, 2019 [facility] [place] PREDNISONE 5MG TAB Discontinued TAKE ONE TABLET BY MOUTH ONCE A DAY WITH FOOD 60 Aug 01, 2019 [id number] Sep 25, 2018 [facility] [place] ROPINIROLE HCL 1MG TAB Active TAKE ONE TABLET BY MOUTH AT BED TIME 90 October 17, 2020 [id number] Nov 25, 2019 [facility] ROPINIROLE HCL 1MG TAB Discontinued TAKE ONE TABLET BY MOUTH AT BED TIME 90 Dec 05, 2019 [id number] Sep 03, 2019 KRYSTAL DEJESUS [facility] [place] ROPINIROLE HCL 1MG TAB Discontinued TAKE ONE TABLET BY MOUTH AT BED TIME 90 Dec 13, 2018 [id number] Sep 12, 2018 [facility] [place] [facility] TAMSULOSIN HCL 0.4MG CAP Active: Susp TAKE 1 CAPSULE BY MOUTH ONCE A DAY FOR PROSTATE. TAKE AT THE SAME TIME EACH DAY WITH FOOD. 90 Sep 30 1 [id number] Dec 20, 2019 [facility] [place] TAMSULOSIN HCL 0.4MG CAP Discontinued TAKE 1 CAPSULE BY MOUTH ONCE A DAY FOR PROSTATE. TAKE AT THE SAME TIME EACH DAY WITH FOOD. 90 Sep 12 0 [id number] Jun 24, 2019 LIS BRUCE [facility] [place] Problems (Conditions): All historical and current Section Date Range: From patient's date of to the date document was create d. This section includes a list of Problems (Conditions) know n to [facility] for the patient. It includes both active and inacti ve problems (conditions). The data comes from all [place] treatment facilities. Problem Status Problem Code Date of Onset Date of Resolution Comm ent(s) Provider Source Abnormal radiologic density Active [id number] KJ HWANG [facility] [place] Allergic rhinitis Active 78645120 LADY SALAZAR [facility] [place] Anemia Active [id number] KJ POTTER [facility] [place] [facility] Chest pain (SNOMED CT 24987971) Active 786.50 KJ POTTER [facility] [place] [facility] Chondrocalcinosis Active [id number] YOU GOMEZ [facility] [place] [facility] Chronic obstructive lung disease Active 59666171 KJ POTTER [facility] [place] [facility] Coronary artery disease Active 57931276 Angella LINDSEY [facility] [place] [facility] Cough Active 25872954 [facility] [place] Angella Love [facility] [place] Cough (SNOMED CT 34139735) Active 786.2 KJ BARRON [facility] [place] Dysarthria (SNOMED CT 5693161) Active 784.51 M KJ WONG [facility] [place] Dyspnea (SNOMED CT 021849319) Active 786.09 KJ BARKSDALE [facility] [place] Eruption due to drug Active 47478091 TARIQAbdiaziz [facility] [place] Gastroesophageal reflux disease Active 672837424 KJ POTTER [facility] [place] [facility] Hallux valgus AND bunion Active 861561224 DEISY GERMAIN Royce [facility] [place] [facility] Joint pain (SNOMED CT 14949609) Active 719.40 DEISY CONTRERAS Royce [facility] [place] [facility] Joint swelling (SNOMED CT 051578914) Active 719.00 KJ POTTER [facility] [place] [facility] Knee pain Active 85550498 JENNIFER LINDSEY [facility] [place] [facility] Muscle weakness (SNOMED CT 85202290) Active 728.87 KJ POTTER [facility] [place] [facility] Neuropathy Active 869130237 KJ POTTER DAKSHAChad [facility] [place] Osteoarthritis Active 715.36 DYAN SERVIN [facility] [place] Parkinson's disease Active 08084609 ETHAN POTTER [facility] [place] [facility] Peripheral Neuropathy Active 356.9 DASARAJU,P URUSHOTHAMA V [facility] [place] [facility] Personal History of Exposure to Agent Fre[place] Active V15.89 DEISY CONTRERAS [facility] [place] [facility] Polyp of colon (SNOMED CT 58357761) Active 211.3 KJ POTTER [facility] [place] [facility] Restless legs Active 49105441 PATRICK WHITE [facility] [place] Rheumatoid arthritis Active 77851910 Abdiaziz POTTER [facility] [place] [facility] Screening, Malignancy Active V76.89 PARISLISSETH SOPHIA Hector [facility] [place] Sleep apnea Active 96821750 TARIQKJ CHUNG RN [facility] [place] Synovial cyst of popliteal space (SNOMED CT 13710041) Active 727.51 KJ POTTER [facility] [place] [facility] Tobacco dependence in remission Active 508582086 TARIQ,DANA [facility] [place] [facility] Tobacco use Active 659304355 JENNIFER LINDSEY CAROLYN [facility] [place] Tremor Active 96400541 JENNIFER LINDSEY K S [facility] [place] Unresolved Active 60742528 JENNIFER LINDSEY N [facility] [place] Unresolved Active 26850550 JENNIFER LINDSEY [facility] [place] Radiology Reports: +/- 30 days of the encounter No Data Provided for This Section Pathology Reports: +/- 30 days of the encounter No Data Provided for This Section Encounter Notes: All associated encounter notes This section contains the clinical notes associated to the Encounter. Date/Time Encounter Note(s) Provider Source Apr 04, 2019 09:15 AM PHARMACY NOTE: LOCAL TITLE: EK-PHARMACY SPECIALTY STANDARD TITLE: PHARMACY NOTE DATE OF NOTE: APR 04, 2019@09:15 ENTRY DATE: APR 04, 2019@09:15:25 AUTHOR: BERRY AVITIA COSIGNER: URGENCY: STATUS: COMPLETED URINE DRUG SCREEN INTERPRETATION is a currently on long-term opioids for chronic pain. Urine Drug Screen was performed: 04/02/19 Collection DT Specimen Test Name Result Units Ref Range 04/02/2019 10:11 URINE AMPHETAMINE NEG Ref: Negative 04/02/2019 10:11 URINE BARBITURATE S NEG Ref: Negative 04/02/2019 10:11 URINE BENZODIAZEP ABY NEG Ref: Negative 04/02/2019 10:11 URINE CANNABINOID S NEG Ref: Negative 04/02/2019 10:11 URINE COCAINE NEG Ref: Negative 04/02/2019 10:11 URINE OPIATES >1000POS Ref: Negative 04/02/2019 10:11 URINE PHENCYCLIDI NE(PCP NEG Ref: Negative 04/02/2019 10:11 URINE *CREATININE ,DRUG 45.00 mg/dL 04/02/2019 10:11 URINE METHADONE(U DS) NEG Ref: Negative 04/02/2019 10:11 URINE OXYCODONE ( URINE) NEG Ref: Negative SCL1 - DRUG SCREEN RESULTS No data available for *MORPHINE, URINE, QNT; *OXYMORPHONE, URINE, QNT; *HYDROCODONE, URINE, QNT; *CODEINE, URINE, QNT; *OXYCODONE, URINE, QNT; *HYDROMORPHONE, URINE, QNT; *NORHYDROCODONE, URINE, QNT SCL2 - DRUG SCREEN RESULTS Collection DT Spec AMPH JUDI LUCY THC SILVERIO OPIATE 04/02/2019 10:11 URINE NEG NEG NEG NEG NEG >1000POS SCL3 - DRUG SCREEN RESULTS Collection DT Spec PCP METHAD CREAT. 04/02/2019 10:11 URINE NEG NEG 45.00 Current prescribed opioid medications: Hydrocodone-apap Current prescribed benzodiazepines: None Assessment/Recommendations: -UDS is positive for opiates. This resul t is *expected* for prescribed opioids. -Creatinine WNL -No immediate action required -Repeat UDS within 6 months Time spent reviewing chart: 15min Reminders: PBM PharmD Pharmacotherapy Rem V11: PHARMACIST INTERVENTIONS: PAIN MANAGEMENT Interpretation of urine drug screen/serum toxicology screen /sofya/ BERRY DWYER PHARMJoseDJose Pain Management CPS Signed: 04/04/2019 09:16 BERRY AVITIA [facility] Freed IV
--- OUTSIDE RECORDS SUMMARY | 2019-12-04 22:04 | XMS REPORT | Encounter Summary ---
Author Author [facility] CARLOS sweeney Organization Department of [facility] Address [address] [place] [phone] Phone Unavailable Care Team Providers Care Wig Sales Consultant Name Role Phone TARIQKOURTNEY PCP Unavailable Insurance [...] PLAN G MEDICARE SUPPLEMENT Dec PLAN G [id number] [phone] ROSALINACARLOS PATIENT MEDICARE (WNR) MEDICARE (M) PART A Dec 16, 2014 PART A [id number] [phone] ROSALINACARLOS PATIENT MEDICARE (WNR) MEDICARE (M) PART B Dec 16, 2014 PART B [id number] [phone] CARLOS ROMANO PATIENT MEDICO DENTAL INSURANCE DENTAL VISIONHEARING Dec 16, 2014 DENTAL VISIONHEAR [id number] [phone] CARLOS ROMANO PATIENT Selected Encounter This section includes the information on record at [place] for the Encounter. Date/Time Encounter Type Encounter Description Reason Provider Source Feb 25, 2019 03:10 PM Outpatient Encounter PRIMARY CARE/MEDICINE JENNIFER LINDSEY [facility] IHE Encounter Template Text not used by [place] Assessments - Encounter Diagnoses No Data Provided for This Section Plan of Treatment: Future Appointments (+ 6 months) and Future Tests (+/- 45 day s) The Plan of Treatment section includes future care activities for the patient fr om all [facility] facilities. This section includes future appointments and fu ture orders which are active, pending or scheduled. Future Appointments This section includes appointments that were scheduled t o occur 6 months from the date of the Encounter, up to a maximum of 20 appointme nts. The data comes from all [facility]. Appointment Date/Time Appointment Type Appointment Facili ty Name Apr 02, 2019 09:45 AM AMBULATORY - MEDICINE [facility] Apr 09, 2019 01:30 PM AMBULATORY - MEDICINE [facility] Apr 24, 2019 09:30 AM AMBULATORY - MEDICINE [facility] May 29, 2019 09:00 AM AMBULATORY - NONE [facility] Aug 06, 2019 01:00 PM AMBULATORY - MEDICINE [place] [facility]t [facility] Active, Pending, and Scheduled Orders This [...] the Encounter. The data comes from all [facility]. Test Date/Time Test Type Test Details Facility Name Apr 02, 2019 12:00 AM Laboratory - Chemistry Order COMPREHEN SIVE METABOLIC PANEL GREEN TOP TUBE PLASMA [facility] Apr 02, 2019 12:00 AM Laboratory - Chemistry Order CBC & DIF F 5 ML LAVENDER TOP BLOOD [facility] Apr 02, 2019 12:00 AM Laboratory - Chemistry Order C-REACTIV E PROTEIN SST GEL SERUM [facility] Apr 02, 2019 10:11 AM Laboratory - Chemistry Order ERYTHROCY TE SEDIMENTATION RATE 5 ML LAVENDER TOP BLOOD [facility] DARLEEN [facility] Surgical Procedures: All associated to the [...] Adverse Reactions (ADR s) on record with [place] for the patient. The data comes from a ll [place] treatment facilities. It does not list Allergies/ADRs that were removed or entered in error. Some allergies/ADRs may be reported in t he Immunization section. Allergen Event Date Event Type Reaction(s) Severity Source PANTOPRAZOLE Oct 01, 2018 Propensity to adverse reactions to drug (disorder) Eruption [facility] 15 PENICILLIN Jul 17, 2012 Propensity to adverse reactions to drug (disorder) Peripheral edema [facility] 15 Medications: VA dispensed (-15 months) and Non-VA Documented (Obtained Outside A) Section Date Range: 1) prescriptions processed by a VA pharmacy in the last 15 m [facility], and 2) all medications recorded in the [place] medical record as "non-VA medic ations". Pharmacy terms refer to [place] pharmacy's work on prescriptions. VA patient s are advised to take their medications as instructed by their health care team. The data comes from all [place] treatment facilities. Glossary of Pharmacy Terms:Active = A prescription that can be filled at the local [place] pharmacy.Active: On Hold = An active prescription that will not be filled until pharmacy resolves the issue.Active: Susp = An active prescription that is not scheduled to be filled yet.Clinic Order = A medication received during a visit to a [place] clinic or emergency department (currently not available).Discontinued [...] FOR INHALATION ONCE 1 Nov 16, 2018 [id number] October 17, [address] [facility] ALBUTEROL SO4 90MCG/ACTUAT (CFC-F) INHL,ORAL,6.7GM Active INHALE 2 PUFFS BY ORAL INHALATION FOUR TIMES A DAY NEEDED - RINSE MOUTHPIECE FREQUENTLY TO PREVENT CLOGGING 1 Apr 24, 2020 [id number] October 18, 2019 KOURTNEY POTTER [facility] ALBUTEROL SO4 90MCG/ACTUAT (CFC-F) INHL,ORAL,6.7GM Discontin ued INHALE 2 PUFFS BY ORAL INHALATION FOUR TIMES A DAY NEEDED - RINSE MOUTHPIECE FREQUENTLY TO PREVENT CLOGGING 2 Apr 24, 2020 [id number] Apr 24, 2019 KOURTNEY POTTER [facility] BUDESONIDE 160MCG/FORMOTEROL FUM 4.5MCG/SPRAY INHL,ORAL,10.2 GM Active INHALE 2 PUFFS BY ORAL INHALATION TWO TIMES A DAY FOR BREATHING. SHAKE WELL. RINSE MOUTH AND SPIT AFTER EACH USE. 2 Apr 24, 2020 [id number] October 17, 2019 KOURTNEY JOSHI [facility] CALCIUM 500MG (CA CARBONATE-1.25GM) TAB Active: Susp TAKE ONE TABLET BY MOUTH TWO TIMES A DAY 180 Nov 20, 2020 [id number] Jan 09, [address] [facility] CALCIUM 500MG (CA CARBONATE-1.25GM) TAB Discontinued TAKE ONE TABLET BY MOUTH TWO TIMES A DAY 180 Jan 08, 2020 [id number] October 21, 2019 KOURTNEY POTTER [facility] [place] [facility] CALCIUM 500MG (CA CARBONATE-1.25GM) TAB Discontinued TAKE ONE TABLET BY MOUTH TWO TIMES A DAY 180 Dec 29, 2018 [id number] Oct 01, 2018 NASH KULAKRNI [facility] CARBIDOPA 25MG/LEVODOPA 100MG TAB Active TAKE 2 TABLETS BY MOUTH FOUR TIMES A DAY FOR PARKINSON'S DISEASE. DO NOT TAKE WITH FOOD. 240 Nov 24, 2020 [id number] Nov 27, 2019 ALLEGRA HOWE [facility] CARBIDOPA 25MG/LEVODOPA 100MG TAB Discontinued TAKE T WO TABLETS BY MOUTH FIVE TIMES DAILY FOR PARKINSON'S DISEASE. DO NOT TAKE WITH FOOD. 600 Jul 02, 2020 [id number] Nov 19, 2019 [facility] [place] [facility] CARBIDOPA 25MG/LEVODOPA 100MG TAB Discontinued TAKE 2 TABLETS BY MOUTH FIVE TIMES DAILY FOR PARKINSON'S DISEASE. DO NOT TAKE WITH FOOD. 300 Jun 30, 2020 [id number] Jul 01, 2019 [facility] [place] [facility] CARBIDOPA 25MG/LEVODOPA 100MG TAB Discontinued TAKE 2 TABLETS BY MOUTH FOUR TIMES A DAY FOR PARKINSON'S DISEASE. DO NOT TAKE WITH FOOD. 240 Jun 24, 2020 [id number] Jun 26, 2019 [facility] [place] [facility] CARBIDOPA 25MG/LEVODOPA 100MG TAB Discontinued TAKE 2 TABLETS BY MOUTH FOUR TIMES A DAY FOR PARKINSON'S DISEASE. DO NOT TAKE WITH FOOD. 240 Dec 25, 2019 [id number] May 15, 2019 [facility] [place] [facility] CARBIDOPA 25MG/LEVODOPA 100MG TAB Discontinued TAKE 2 TABLETS BY MOUTH FOUR TIMES A DAY FOR PARKINSON'S DISEASE. DO NOT TAKE WITH FOOD. 240 Jun 07, 2019 [id number] Nov 18, 2018 [facility] [place] [facility] CHOLECALCIFEROL 25MCG (1,000UNIT) TAB Active: Susp TA KE TWO TABLETS BY MOUTH ONCE A DAY FOR VITAMIN D DEFICIENCY 200 Nov 20, 2020 [id number] Dec 172019 [facility] CHOLECALCIFEROL 25MCG (1,000UNIT) TAB Discontinued TA KE TWO TABLETS BY MOUTH ONCE A DAY FOR VITAMIN D DEFICIENCY 200 Dec 25, 2019 [id number] October [facility] [place] [facility] CHOLECALCIFEROL 25MCG (1,000UNIT) TAB Discontinued TA KE TWO TABLETS BY MOUTH ONCE A DAY FOR VITAMIN D DEFICIENCY 200 Oct 10, 2018 [id number] Aug 172018 [facility] CLOPIDOGREL BISULFATE 75MG TAB Active: Susp TAKE ONE TABLET BY MOUTH ONCE A DAY TO PREVENT BLOOD CLOTS 90 Apr 24, 2020 [id number] Dec 19, 2019 [facility] CLOPIDOGREL BISULFATE 75MG TAB Discontinued TAKE ONE TABLET BY MOUTH ONCE A DAY TO PREVENT BLOOD CLOTS 90 Jun 01, 2019 [id number] Mar 13, 2019 [facility] [place] [facility] DIPHENHYDRAMINE HCL 25MG CAP Non-VA TAKE 1 CAPSULE BY MOUTH EVERY 6 HOURS NEEDED Non-VA Documented by: KOURTNEY POTTER nted at: [facility] FLUDROCORTISONE ACETATE 0.1MG TAB Active TAKE ONE TABLET BY M OUTH ONCE A DAY 90 Nov 19, 2020 [id number] Nov 20, 2019 [facility] [place] FOLIC ACID 1MG TAB Non- VA TAKE ONE TABLET BY MOUTH ONCE A DAY N on-VA Documented by: KOURTNEY POTTER nted at: [facility] GABAPENTIN 300MG CAP Active TAKE 1 CAPSULE BY M OUTH 5 TIMES A DAY FOR PAIN AND TREMORS. 300 October 17, 2020 [id number] October 18, 2019 [facility] GABAPENTIN 300MG CAP Discontinued TAKE ONE CAPSULE BY MOUTH FOUR TIMES A DAY FOR PAIN AND TREMORS. 240 Jan 08, 2020 [id number] Oct 14, 2019 [facility] [place] [facility] GABAPENTIN 300MG CAP Discontinued TAKE ONE CAPSULE BY MOUTH FOUR TIMES A DAY FOR PAIN AND TREMORS. 240 Mar 08, 2019 [id number] Jan 07, 2019 [facility] [place] [facility] HYDROCODONE 10MG/ACETAMINOPHEN 325MG TAB Active TAKE ONE TABLET (10/325MG) BY MOUTH THREE TIMES A DAY NEEDED FOR PAIN CAUTION: DO NOT EXCEED 4000MG/DAY TOTAL OF ACETAMINOPHEN (APAP) FROM ALL MEDS 90 Dec 20, 2019 [id number] Nov 21, 2019 [facility] HYDROCODONE 10MG/ACETAMINOPHEN 325MG TAB Discontinued TAKE ONE TABLET (10/325MG) BY MOUTH THREE TIMES A DAY NEEDED FOR PAIN CAUTION: DO NOT EXCEED 4000MG/DAY TOTAL OF ACETAMINOPHEN (APAP) FROM ALL MEDS 90 Sep 17, 2 020 [id number] Sep 04, 2019 [facility] [place] [facility] HYDROCODONE 10MG/ACETAMINOPHEN 325MG TAB Discontinued TAKE ONE TABLET BY MOUTH THREE TIMES A DAY NEEDED FOR PAIN CAUTION: DO NOT EXCEED 4000MG/DAY TOTAL OF ACETAMINOPHEN (APAP) FROM ALL MEDS 90 Jul 26, 2019 [id number] Jun 26, 2019 [facility] [place] [facility] HYDROCODONE 10MG/ACETAMINOPHEN 325MG TAB Discontinued TAKE ONE TABLET BY MOUTH THREE TIMES A DAY NEEDED FOR PAIN CAUTION: DO NOT EXCEED 4000MG/DAY TOTAL OF ACETAMINOPHEN (APAP) FROM ALL MEDS 90 Jun 27, 2019 [id number] May 29, 2019 KOURTNEY POTTER [facility] HYDROCODONE 10MG/ACETAMINOPHEN 325MG TAB Discontinued TAKE ONE TABLET BY MOUTH THREE TIMES A DAY NEEDED FOR PAIN CAUTION: DO NOT EXCEED 4000MG/DAY TOTAL OF ACETAMINOPHEN (APAP) FROM ALL MEDS 90 May 08, 2019 [id number] Apr 08, 2019 [facility] [place] [facility] HYDROCODONE 10MG/ACETAMINOPHEN 325MG TAB Discontinued TAKE ONE TABLET BY MOUTH THREE TIMES A DAY NEEDED FOR PAIN CAUTION: DO NOT EXCEED 4000MG/DAY TOTAL OF ACETAMINOPHEN (APAP) FROM ALL MEDS 90 Mar 28, 2019 [id number] Feb 26, 2019 [facility] [place] [facility] HYDROCODONE 10MG/ACETAMINOPHEN 325MG TAB Discontinued TAKE ONE TABLET BY MOUTH THREE TIMES A DAY NEEDED FOR PAIN CAUTION: DO NOT EXCEED 4000MG/DAY TOTAL OF ACETAMINOPHEN (APAP) FROM ALL MEDS 90 Feb 06, 2019 [id number] Jan 07, 2019 [facility] [place] [facility] HYDROCODONE 10MG/ACETAMINOPHEN 325MG TAB Discontinued TAKE ONE TABLET BY MOUTH THREE TIMES A DAY NEEDED FOR PAIN CAUTION: DO NOT EXCEED 4000MG/DAY TOTAL OF ACETAMINOPHEN (APAP) FROM ALL MEDS 90 Dec 05, 2018 [id number] November 05, 2018 [facility] [facility] HYDROCODONE 10MG/ACETAMINOPHEN 325MG TAB Discontinued TAKE ONE TABLET BY MOUTH THREE TIMES A DAY NEEDED FOR PAIN CAUTION: DO NOT EXCEED 4000MG/DAY TOTAL OF ACETAMINOPHEN (APAP) FROM ALL MEDS 90 October 25, 2018 [id number] Sep 25, 2018 [facility] [place] [facility] HYDROCODONE 10MG/ACETAMINOPHEN 325MG TAB TAKE ONE TABLET (10/325MG) BY MOUTH THREE TIMES A DAY NEEDED FOR PAIN CAUTION: DO NOT EXCEED 4000MG/DAY TOTAL OF ACETAMINOPHEN (APAP) FROM ALL MEDS 90 November 16, 2019 [id number] October 18, 2019 TARIQKOURTNEY [facility] METHOTREXATE NA 2.5MG TAB Active TAKE SEVEN TABLETS BY MOUTH EVERY WEEK 90 October 17, 2020 [id number] November 04, 2019 [facility] METHOTREXATE NA 2.5MG TAB Discontinued TAKE SEVEN TABLETS BY MOUTH EVERY WEEK 90 May 09, 2020 [id number] Aug 16, 2019 NASH KULKARNI [facility] METHOTREXATE NA 2.5MG TAB Discontinued TAKE SEVEN TABLETS BY MOUTH EVERY WEEK 90 Aug 04, 2019 [id number] Feb 22, 2019 YOU GOMEZ [facility] NORTRIPTYLINE HCL 10MG CAP Active TAKE 2 CAPSULES BY MO UTH AT BEDTIME NEEDED 120 Apr 02, 2020 [id number] Nov 20, 2019 [facility] [place] NORTRIPTYLINE HCL 10MG CAP Discontinued TAKE 2 CAPSUL ES BY MOUTH AT BEDTIME NEEDED 120 Mar 20, 2019 [id number] Jan 23, 2019 [facility] OMEPRAZOLE 20MG CAP,EC Active TAKE 1 CAPSULE BY MOUTH EVERY MORNING TO LOWER STOMACH ACID. TAKE 30 MINUTES PRIOR TO FOOD. 90 October 17, 2020 [id number] October 21, 2019 [facility] OMEPRAZOLE 20MG CAP,EC Discontinued TAKE 1 CAPSULE BY MOUTH EVERY MORNING TO LOWER STOMACH ACID. TAKE 30 MINUTES PRIOR TO FOOD. 90 Oct 02, 2019 [id number] Aug 02, 2019 [facility] [place] [facility] PREDNISONE 1MG TAB Discontinued TAKE THREE TABLETS B Y MOUTH ONCE A DAY FOR INFLAMMATION AND IMMUNE RESPONSE. TAKE WITH FOOD OR MILK. 270 Fe 2019 [id number] Apr 24, 2019 [facility] PREDNISONE 1MG TAB Discontinued TAKE FOUR TABLETS BY MOUTH ONCE A D AY 360 Apr 22, 2019 [id number] Jan 24, [address] [facility] [place] [facility] PREDNISONE 1MG TAB Discontinued TAKE FOUR TABLETS BY MOUTH ONCE A D AY 360 Dec 29, 2018 [id number] Oct 01, 2018 NASH KULKARNI [facility] PREDNISONE 1MG TAB TAKE THREE TABLETS B Y MOUTH ONCE A DAY FOR INFLAMMATION AND IMMUNE RESPONSE. TAKE WITH FOOD OR MILK. 270 Ap r 2019 [id number] Jul 13, 2019 [facility] [place] [facility] PREDNISONE 5MG TAB Discontinued TAKE ONE TABLET BY MOUTH ONCE A DAY WITH FOOD 60 Aug 01, 2019 [id number] Sep 25, 2018 KOURTNEY POTTER [facility] ROPINIROLE HCL 1MG TAB Active TAKE ONE TABLET BY MOUTH AT BED TIME 90 October 17, 2020 [id number] Nov 25, 2019 TARIQ,DANA [facility] ROPINIROLE HCL 1MG TAB Discontinued TAKE ONE TABLET BY MOUTH AT BED TIME 90 Dec 05, 2019 [id number] Sep 03, 2019 DEJESUS,ROSCBALDO Abdiaziz [facility] [place] ROPINIROLE HCL 1MG TAB Discontinued TAKE ONE TABLET BY MOUTH AT BED TIME 90 Dec 13, 2018 [id number] Sep 12, 2018 TARIQ,DANA [facility] [place] [facility] TAMSULOSIN HCL 0.4MG CAP Active: Susp TAKE 1 CAPSULE BY MOUTH ONCE A DAY FOR PROSTATE. TAKE AT THE SAME TIME EACH DAY WITH FOOD. 90 Sep 30 1 [id number] Dec 20, 2019 TARIQKOURTNEY SMITH [facility] [place] [facility] TAMSULOSIN HCL 0.4MG CAP Discontinued TAKE 1 CAPSULE BY MOUTH ONCE A DAY FOR PROSTATE. TAKE AT THE SAME TIME EACH DAY WITH FOOD. 90 Sep 12 0 [id number] Jun 24, 2019 TEO,LIS [facility] Problems (Conditions): All historical and current Section Date Range: From patient's date of to the date document was create d. This section includes a list of Problems (Conditions) know n to [place] for the patient. It includes both active and inacti ve problems (conditions). The data comes from all [place] treatment facilities. Problem Status Problem Code Date of Onset Date of Resolution Comm ent(s) Provider Source Abnormal radiologic density Active [id number] Angella GAMBLEKOURTNEY CHUNG [facility] Allergic rhinitis Active 79819415 LADY SALAZAR [facility] Anemia Active 888058597 [facility] [place] [facility] Chest pain (SNOMED CT 20895258) Active 786.50 [facility] [place] [facility] Chondrocalcinosis Active 191484950 YOU GOMEZ [facility] Chronic obstructive lung disease Active 80732685 [facility] [place] [facility] Coronary artery disease Active 54844556 Angella LINDSEY [facility] [place] [facility] Cough Active 54961279 LADY SALAZAR [facility] [place] [facility] Cough (SNOMED CT 41840303) Active 786.2 KOURTNEY BARRON [facility] [place] [facility] Dysarthria (SNOMED CT 4310486) Active 784.51 M KOURTNEY WONG [facility] [place] [facility] Dyspnea (SNOMED CT 473552781) Active 786.09 KOURTNEY BARKSDALE [facility] [place] [facility] Eruption due to drug Active 71636361 Abdiaziz POTTER TORY [facility] [place] [facility] Gastroesophageal reflux disease Active 288053119 KOURTNEY POTTER [facility] [place] Hallux valgus AND bunion Active 865672986 ALEXANDRO DEISY Dangelo [facility] [place] [facility] Joint pain (SNOMED CT 32358320) Active 719.40 DEISY CONTRERAS Royce [facility] [place] [facility] Joint swelling (SNOMED CT 486471704) Active 719.00 KOURTNEY POTTER [facility] [place] [facility] Knee pain Active 74141535 JENNIFER LINDSEY [facility] Muscle weakness (SNOMED CT 93995217) Active 728.87 KOURTNEY POTTER [facility] [place] [facility] Neuropathy Active 071735340 [facility] [place] [facility] Osteoarthritis Active 715.36 GARETHDYAN MARIE Lars [facility] [place] [facility] Parkinson's disease Active 35323035 TARIQETHAN [facility] [place] [facility] Peripheral Neuropathy Active 356.9 DASARAJU,P [facility] [place] [facility] Personal History of Exposure to Agent [place] Active V15.89 DEISY CONTRERAS Royce [facility] [place] [facility] Polyp of colon (SNOMED CT 86304976) Active 211.3 KOURTNEY POTTER [facility] [place] [facility] Restless legs Active 81365834 PATRICK WHITE [facility] [place] [facility] Rheumatoid arthritis Active 93898058 Abdiaziz [facility] [place] [facility] Screening, Malignancy Active V76.89 LISSETH TOLEDO [facility] [place] [facility] Sleep apnea Active 62062465 KOURTNEY POTTER MANDEEP [facility] [place] [facility] Synovial cyst of popliteal space (SNOMED CT 04883931) Active 727.51 KOURTNEY POTTER [facility] [place] Tobacco dependence in remission Active 985075806 KOURTNEY POTTER [facility] [place] [facility] Tobacco use Active 038157060 JENNIFER LINDSEY CAROLYN [facility] [place] Tremor Active 35869518 JENNIFER LINDSEY K S [facility] [place] [facility] Unresolved Active 60577787 [facility]ALIAJENNIFER [facility] [place] [facility] Unresolved Active 16627009 JENNIFER LINDSEY Toshia [facility] [place] [facility] Radiology Reports: +/- 30 days of the encounter No Data Provided for This Section Pathology Reports: +/- 30 days of the encounter No Data Provided for This Section Encounter Notes: All associated encounter notes This section contains the clinical notes associated to the Encounter. Date/Time Encounter Note(s) Provider Source Feb 25, 2019 03:10 PM PRIMARY CARE SECURE MESSAGIN G: [facility] [place] TITLE: PRIMARY CARE SECURE MESSAGING DATE OF NOTE: FEB 25, 2019@15:10:44 ENTRY DATE: FEB 25, 2019@15:10:44 AUTHOR: JENNIFER LINDSEY EXP COSIGNER: URGENCY: STATUS: COMPLETED ------Original Message ------ Sent: 02/22/2019 12:38 PM From: CARLOS ROMANO To: GREGKate, Samantha Summers [facility] Subject: Medication Inquiry pleases order Hydrocodone ------Original Message ------ Sent: 02/25/2019 04:10 PM From: JENNIFER LINDSEY To: CARLOS ROMANO Subject: Medication Inquiry Forwarding to Kourtney /sofya/ JENNIFER LINDSEY LPN Signed: 02/25/2019 15:10 Receipt Acknowledged By: 02/26/2019 09:Elia /JENNIFER Hernandez [facility]
--- OUTSIDE RECORDS SUMMARY | 2019-12-04 22:05 | XMS REPORT | Encounter Summary ---
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 Date/Time Encounter Type Encounter Description Reason Provider Source Jan 30, 2019 03:56 PM Outpatient Encounter TELEPHONE PRIMARY CAR E ICD-10-CM Z71.89 Other specified counseling with Provider Comments: Counseling,Oth Specified JULIO LANG [facility] IHE Encounter Template Text not used by [place] Assessments - Encounter Diagnoses This section includes the primary and secondary diag noses documented for the Encounter. Date/Time Primary/Secondary Diagnosis Diagnosis Name Provider Source Jan 30, 2019 03:56 PM PRIMARY Other specified counseling JULIO LANG [facility] Plan of Treatment: Future Appointments (+ 6 months) and Future Tests (+/- 45 day s) The Plan of Treatment section includes future care activities for the patient fr om all [place] treatment facilities. This section includes future appointments and fu ture orders which are active, pending or scheduled. Future Appointments This section includes appointments that were scheduled t o occur 6 months from the date of the Encounter, up to a maximum of 20 appointme nts. The data comes from all [place] treatment facilities. Appointment Date/Time Appointment Type Appointment Facili ty Name Apr 02, 2019 09:45 AM AMBULATORY - MEDICINE [facility] [place] Apr 09, 2019 01:30 PM [facility] - [facility]ICINE [facility] Apr 24, 2019 09:30 AM AMBULATORY - MEDICINE [facility] [place] May 29, 2019 09:00 AM AM[facility]ULATORY - NONE [facility] [place] [facility] Surgical Procedures: All associated [...] and tobacco- related health factors from the DE facility where the Encounter took place. Current Smoking Status This section includes the most current smoking, or tobacco -related health factor, from the DE facility where the Encounter took place. Date/Time Current Smoking Status Comment Facility October 17, 2018 05:26 PM DE-TOBACCO QUIT 1 TO < [address] [facility] Tobacco Use History This section includes a history of the smoking, or tobacco -related health factors, that were collected on or before the date of the Encoun ter. The data comes from the DE facility where the Encounter took place. Date/Time Smoking Status/Tobacco Use Comment [facility] October 17, 2018 05:26 PM DE-TOBACCO QUIT 1 TO < [address] [facility] Nov 26, 2017 01:35 PM QUIT TOBACCO IN THE LAST 12 MONTHS Khari [facility] Nov 26, 2017 01:35 PM TOBACCO CESSATION REFERRAL DECLINED [facility] Nov 26, 2017 01:35 PM TOBACCO MEDS OFFERED BUT DECLINED FO RT [facility] Nov 26, 2017 01:35 PM TOBACCO USER OFFERED MEDS [facility] Feb 27, 2017 12:58 PM QUIT TOBACCO IN THE LAST [address] [facility] Feb 27, 2017 12:58 PM TOBACCO CESSATION REFERRAL DECLINED [facility] Feb 27, 2017 12:58 PM TOBACCO MEDS OFFERED BUT DECLINED FO RT [facility] Feb 27, 2017 12:58 PM TOBACCO USER OFFERED MEDS [facility] May 02, 2016 09:04 AM CURRENT NON-TOBACCO USER [facility] Sep 29, 2015 07:48 AM CURRENT TOBACCO USER [facility] Sep 29, 2015 07:48 AM TOBACCO OFFERED STOP SMOKING CLINIC [facility] Mar 19, 2015 07:54 AM CURRENT TOBACCO USER [facility] Mar 19, 2015 07:54 AM TOBACCO OFFERED STOP SMOKING CLINIC [facility] Jan 02, 2014 08:44 AM CURRENT NON-TOBACCO USER [facility] Jul 30, 2013 10:01 AM CURRENT TOBACCO USER [facility] Jul 17, 2012 11:09 AM CURRENT TOBACCO USER [facility] Advance Directives: All historical and current No Data Provided for This Section Allergies and Adverse Reactions (ADRs): All historical and current Section Date Range: From patient's date of to the date document was create d. This section includes Allergies and Adverse Reactions (ADR s) on record with VA for the patient. The data comes from a [facility] treatment facilities. It does not list Allergies/ADRs that were removed or entered in error. Some allergies/ADRs may be reported in t he Immunization section. Allergen Event Date Event Type Reaction(s) Severity Source PANTOPRAZOLE Oct 01, 2018 Propensity to adverse reactions to drug (disorder) Eruption [facility] [place] Jul 17, 2012 Propensity to adverse reactions to drug (disorder) Peripheral edema [facility] Medications: VA dispensed (-15 months) and Non-VA Documented (Obtained Outside V A) Section Date Range: 1) prescriptions processed by a VA pharmacy in the last [address] [facility], and 2) all medications recorded in the [place] medical record as "non-VA medic ations". Pharmacy terms refer to [place] pharmacy's work on prescriptions. VA patient s are advised to take their medications as instructed by their health care team. The data comes from all [place] treatment facilities. Glossary of Pharmacy Terms:Active = A prescription that can be filled at the local [place] pharmacy.Active: On Hold = An active prescription that will not be filled until pharmacy resolves the issue.Active: Susp = An active prescription that is not scheduled to be filled yet.Clinic Order = A medication received during a visit to a [place] clinic or emergency department (currently not available).Discontinued [...] may be a prescription from either the [place] or other providers that was filled outside the [place]. Or, it may be an over the [...] FOR INHALATION ONCE 1 Nov 16, 2018 [id number] October 17, 2018 KJ POTTER [facility] ALBUTEROL SO4 90MCG/ACTUAT (CFC-F) INHL,ORAL,6.7GM Active INHALE 2 PUFFS BY ORAL INHALATION FOUR TIMES A DAY NEEDED - RINSE MOUTHPIECE FREQUENTLY TO PREVENT CLOGGING 1 Apr 24, 2020 [id number] October 18, 2019 KJ POTTER [facility] ALBUTEROL SO4 90MCG/ACTUAT (CFC-F) INHL,ORAL,6.7GM Discontin ued INHALE 2 PUFFS BY ORAL INHALATION FOUR TIMES A DAY NEEDED - RINSE MOUTHPIECE FREQUENTLY TO PREVENT CLOGGING 2 Apr 24, 2020 [id number] Apr 24, [address] [facility] BUDESONIDE 160MCG/FORMOTEROL FUM 4.5MCG/SPRAY INHL,ORAL,10.2 GM Active INHALE 2 PUFFS BY ORAL INHALATION TWO TIMES A DAY FOR BREATHING. SHAKE WELL. RINSE MOUTH AND SPIT AFTER EACH USE. 2 Apr 24, 2020 [id number] October 17, 2019 KJ JOSHI [facility] CALCIUM 500MG (CA CARBONATE-1.25GM) TAB Active: Susp TAKE ONE TABLET BY MOUTH TWO TIMES A DAY 180 Nov 20, 2020 [id number] Jan 09, 2020 TARIQKJ [facility] CALCIUM 500MG (CA CARBONATE-1.25GM) TAB Discontinued TAKE ONE TABLET BY MOUTH TWO TIMES A DAY 180 Jan 08, 2020 [id number] October 21, 2019 KJ OPTTER [facility] [place] CALCIUM 500MG (CA CARBONATE-1.25GM) TAB Discontinued TAKE ONE TABLET BY MOUTH TWO TIMES A DAY 180 Dec 29, 2018 [id number] Oct 01, 2018 [facility] CARBIDOPA 25MG/LEVODOPA 100MG TAB Active TAKE 2 TABLETS BY MOUTH FOUR TIMES A DAY FOR PARKINSON'S DISEASE. DO NOT TAKE WITH FOOD. 240 Nov 24, 2020 [id number] Nov 27, 2019 [facility] [place] CARBIDOPA 25MG/LEVODOPA 100MG TAB Discontinued TAKE T WO TABLETS BY MOUTH FIVE TIMES DAILY FOR PARKINSON'S DISEASE. DO NOT TAKE WITH FOOD. 600 Jul 02, 2020 [id number] Nov 19, 2019 [facility] [place] [facility] CARBIDOPA 25MG/LEVODOPA 100MG TAB Discontinued TAKE 2 TABLETS BY MOUTH FIVE TIMES DAILY FOR PARKINSON'S DISEASE. DO NOT TAKE WITH FOOD. 300 Jun 30, 2020 [id number] Jul 01, 2019 [facility] [place] CARBIDOPA 25MG/LEVODOPA 100MG TAB Discontinued TAKE 2 TABLETS BY MOUTH FOUR TIMES A DAY FOR PARKINSON'S DISEASE. DO NOT TAKE WITH FOOD. 240 Jun 24, 2020 [id number] Jun 26, 2019 [facility] [place] [facility] CARBIDOPA 25MG/LEVODOPA 100MG TAB Discontinued TAKE 2 TABLETS BY MOUTH FOUR TIMES A DAY FOR PARKINSON'S DISEASE. DO NOT TAKE WITH FOOD. 240 Dec 25, 2019 [id number] May 15, 2019 [facility] [place] [facility] CARBIDOPA 25MG/LEVODOPA 100MG TAB Discontinued TAKE 2 TABLETS BY MOUTH FOUR TIMES A DAY FOR PARKINSON'S DISEASE. DO NOT TAKE WITH FOOD. 240 Jun 07, 2019 [id number] Nov 18, [address] [facility] [place] CHOLECALCIFEROL 25MCG (1,000UNIT) TAB Active: Susp TA KE TWO TABLETS BY MOUTH ONCE A DAY FOR VITAMIN D DEFICIENCY 200 Nov 20, 2020 [id number] Dec 172019 [facility] CHOLECALCIFEROL 25MCG (1,000UNIT) TAB Discontinued TA KE TWO TABLETS BY MOUTH ONCE A DAY FOR VITAMIN D DEFICIENCY 200 Dec 25, 2019 [id number] October [facility] [place] CHOLECALCIFEROL 25MCG (1,000UNIT) TAB Discontinued TA KE TWO TABLETS BY MOUTH ONCE A DAY FOR VITAMIN D DEFICIENCY 200 Oct 10, 2018 [id number] Aug 172018 [facility] CLOPIDOGREL BISULFATE 75MG TAB Active: Susp TAKE ONE TABLET BY MOUTH ONCE A DAY TO PREVENT BLOOD CLOTS 90 Apr 24, 2020 [id number] Dec 19, 2019 [facility] CLOPIDOGREL BISULFATE 75MG TAB Discontinued TAKE ONE TABLET BY MOUTH ONCE A DAY TO PREVENT BLOOD CLOTS 90 Jun 01, 2019 [id number] Mar 13, 2019 [facility] [place] DIPHENHYDRAMINE HCL 25MG CAP Non-VA TAKE 1 CAPSULE BY MOUTH EVERY 6 HOURS NEEDED Non-VA Documented by: KJ POTTER nted at: [facility] FLUDROCORTISONE ACETATE 0.1MG TAB Active TAKE ONE TABLET BY M OUTH ONCE A DAY 90 Nov 19, 2020 [id number] Nov 20, 2019 [facility] [place] FOLIC ACID 1MG TAB Non- VA TAKE ONE TABLET BY MOUTH ONCE A DAY N on-VA Documented by: KJ POTTER nted at: [facility] GABAPENTIN 300MG CAP Active TAKE 1 CAPSULE BY M OUTH 5 TIMES A DAY FOR PAIN AND TREMORS. 300 October 17, 2020 [id number] October 18, 2019 [facility] GABAPENTIN 300MG CAP Discontinued TAKE ONE CAPSULE BY MOUTH FOUR TIMES A DAY FOR PAIN AND TREMORS. 240 Jan 08, 2020 [id number] Oct 14, 2019 [facility] [place] GABAPENTIN 300MG CAP Discontinued TAKE ONE CAPSULE BY MOUTH FOUR TIMES A DAY FOR PAIN AND TREMORS. 240 Mar 08, 2019 [id number] Jan 07, 2019 [facility] [place] [facility] HYDROCODONE 10MG/ACETAMINOPHEN 325MG TAB Active TAKE ONE TABLET (10/325MG) BY MOUTH THREE TIMES A DAY NEEDED FOR PAIN CAUTION: DO NOT EXCEED 4000MG/DAY TOTAL OF ACETAMINOPHEN (APAP) FROM ALL MEDS 90 Dec 20, 2019 [id number] Nov 21, 2019 TARIQKJ SMITH [facility] HYDROCODONE 10MG/ACETAMINOPHEN 325MG TAB Discontinued TAKE ONE TABLET (10/325MG) BY MOUTH THREE TIMES A DAY NEEDED FOR PAIN CAUTION: DO NOT EXCEED 4000MG/DAY TOTAL OF ACETAMINOPHEN (APAP) FROM ALL MEDS 90 Sep 17, 020 [id number] Sep 04, 2019 TARIQ,[facility] [place] HYDROCODONE 10MG/ACETAMINOPHEN 325MG TAB Discontinued TAKE ONE TABLET BY MOUTH THREE TIMES A DAY NEEDED FOR PAIN CAUTION: DO NOT EXCEED 4000MG/DAY TOTAL OF ACETAMINOPHEN (APAP) FROM ALL MEDS 90 Jul 26, 2019 [id number] Jun 26, 2019 TARIQ,[facility] [place] [facility] HYDROCODONE 10MG/ACETAMINOPHEN 325MG TAB Discontinued TAKE ONE TABLET BY MOUTH THREE TIMES A DAY NEEDED FOR PAIN CAUTION: DO NOT EXCEED 4000MG/DAY TOTAL OF ACETAMINOPHEN (APAP) FROM ALL MEDS 90 Jun 27, 2019 [id number] May 29, 2019 TARIQ,[facility] [place] [facility] HYDROCODONE 10MG/ACETAMINOPHEN 325MG TAB Discontinued TAKE ONE TABLET BY MOUTH THREE TIMES A DAY NEEDED FOR PAIN CAUTION: DO NOT EXCEED 4000MG/DAY TOTAL OF ACETAMINOPHEN (APAP) FROM ALL MEDS 90 May 08, 2019 [id number] Apr 08, 2019 TARIQ,[facility] [place] [facility] HYDROCODONE 10MG/ACETAMINOPHEN 325MG TAB Discontinued TAKE ONE TABLET BY MOUTH THREE TIMES A DAY NEEDED FOR PAIN CAUTION: DO NOT EXCEED 4000MG/DAY TOTAL OF ACETAMINOPHEN (APAP) FROM ALL MEDS 90 Mar 28, 2019 [id number] Feb 26, 2019 TARIQ,[facility] [place] [facility] HYDROCODONE 10MG/ACETAMINOPHEN 325MG TAB Discontinued TAKE ONE TABLET BY MOUTH THREE TIMES A DAY NEEDED FOR PAIN CAUTION: DO NOT EXCEED 4000MG/DAY TOTAL OF ACETAMINOPHEN (APAP) FROM ALL MEDS 90 Feb 06, 2019 [id number] Jan 07, 2019 [facility] [place] HYDROCODONE 10MG/ACETAMINOPHEN 325MG TAB Discontinued TAKE ONE TABLET BY MOUTH THREE TIMES A DAY NEEDED FOR PAIN CAUTION: DO NOT EXCEED 4000MG/DAY TOTAL OF ACETAMINOPHEN (APAP) FROM ALL MEDS 90 Dec 05, 2018 [id number] November 05, 2018 [facility] [place] HYDROCODONE 10MG/ACETAMINOPHEN 325MG TAB Discontinued TAKE ONE TABLET BY MOUTH THREE TIMES A DAY NEEDED FOR PAIN CAUTION: DO NOT EXCEED 4000MG/DAY TOTAL OF ACETAMINOPHEN (APAP) FROM ALL MEDS 90 October 25, 2018 [id number] Sep 25, 2018 [facility] [place] HYDROCODONE 10MG/ACETAMINOPHEN 325MG TAB TAKE ONE TABLET (10/325MG) BY MOUTH THREE TIMES A DAY NEEDED FOR PAIN CAUTION: DO NOT EXCEED 4000MG/DAY TOTAL OF ACETAMINOPHEN (APAP) FROM ALL MEDS 90 November 16, 2019 [id number] October 18, 2019 [facility] METHOTREXATE NA 2.5MG TAB Active TAKE SEVEN TABLETS BY MOUTH EVERY WEEK 90 October 17, 2020 [id number] November 04, 2019 [facility] METHOTREXATE NA 2.5MG TAB Discontinued TAKE SEVEN TABLETS BY MOUTH EVERY WEEK 90 May 09, 2020 [id number] Aug 16, 2019 NASH KULKARNI [facility] METHOTREXATE NA 2.5MG TAB Discontinued TAKE SEVEN TABLETS BY MOUTH EVERY WEEK 90 Aug 04, 2019 [id number] Feb 22, [address] [facility] [place] NORTRIPTYLINE HCL 10MG CAP Active TAKE 2 CAPSULES BY MO UTH AT BEDTIME NEEDED 120 Apr 02, 2020 [id number] Nov 20, 2019 [facility] [place] NORTRIPTYLINE HCL 10MG CAP Discontinued TAKE 2 CAPSUL ES BY MOUTH AT BEDTIME NEEDED 120 Mar 20, 2019 [id number] Jan 23, 2019 [facility] OMEPRAZOLE 20MG CAP,EC Active TAKE 1 CAPSULE BY MOUTH EVERY MORNING TO LOWER STOMACH ACID. TAKE 30 MINUTES PRIOR TO FOOD. 90 October 17, 2020 [id number] October 21, 2019 [facility] OMEPRAZOLE 20MG CAP,EC Discontinued TAKE 1 CAPSULE BY MOUTH EVERY MORNING TO LOWER STOMACH ACID. TAKE 30 MINUTES PRIOR TO FOOD. 90 Oct 02, 2019 [id number] Aug 02, 2019 [facility] [place] PREDNISONE 1MG TAB Discontinued TAKE THREE TABLETS B Y MOUTH ONCE A DAY FOR INFLAMMATION AND IMMUNE RESPONSE. TAKE WITH FOOD OR MILK. 270 Fe b 2019 [id number] Apr 24, 2019 [facility] PREDNISONE 1MG TAB Discontinued TAKE FOUR TABLETS BY MOUTH ONCE A D AY 360 Apr 22, 2019 [id number] Jan 24, 2019 [facility] [place] PREDNISONE 1MG TAB Discontinued TAKE FOUR TABLETS BY MOUTH ONCE A D AY 360 Dec 29, 2018 [id number] Oct 01, 2018 NASH KULKARNI V [facility] PREDNISONE 1MG TAB TAKE THREE TABLETS B Y MOUTH ONCE A DAY FOR INFLAMMATION AND IMMUNE RESPONSE. TAKE WITH FOOD OR MILK. 270 Ap r 2019 [id number] Jul 13, 2019 [facility] [place] PREDNISONE 5MG TAB Discontinued TAKE ONE TABLET BY MOUTH ONCE A DAY WITH FOOD 60 Aug 01, 2019 [id number] Sep 25, 2018 [facility] [place] ROPINIROLE HCL 1MG TAB Active TAKE ONE TABLET BY MOUTH AT BED TIME 90 October 17, 2020 [id number] Nov 25, 2019 [facility] ROPINIROLE HCL 1MG TAB Discontinued TAKE ONE TABLET BY MOUTH AT BED TIME 90 Dec 05, 2019 [id number] Sep 03, [address] [facility] [place] ROPINIROLE HCL 1MG TAB Discontinued TAKE ONE TABLET BY MOUTH AT BED TIME 90 Dec 13, 2018 [id number] Sep 12, 2018 [facility] [place] TAMSULOSIN HCL 0.4MG CAP Active: Susp TAKE 1 CAPSULE BY MOUTH ONCE A DAY FOR PROSTATE. TAKE AT THE SAME TIME EACH DAY WITH FOOD. 90 Sep 30 1 [id number] Dec 20, 2019 [facility] [place] TAMSULOSIN HCL 0.4MG CAP Discontinued TAKE 1 CAPSULE BY MOUTH ONCE A DAY FOR PROSTATE. TAKE AT THE SAME TIME EACH DAY WITH FOOD. 90 Sep 12 0 [id number] Jun 24, [address] [facility] [place] Problems (Conditions): All historical and current Section Date Range: From patient's date of to the date document was create d. This section includes a list of Problems (Conditions) know n to [facility] for the patient. It includes both active and inacti ve problems (conditions). The data comes from all [place] treatment facilities. Problem Status Problem Code Date of Onset Date of Resolution Comm ent(s) Provider Source Abnormal radiologic density Active [id number] KJ HWNAG [facility] [place] Allergic rhinitis Active 38881850 LADY SALAZAR [facility] [place] Anemia Active 345459196 KJ POTTER [facility] [place] Chest pain (SNOMED CT 48406500) Active 786.[address] [facility] [place] Chondrocalcinosis Active 652283790 YOU GOMEZ [facility] [place] Chronic obstructive lung disease Active 25139232 [facility] [place] [facility] Coronary artery disease Active 85926721 Angella LINDSEY Toshia [facility] [place] Cough Active 35358780 LADY SALAZAR [facility] [place] Cough (SNOMED CT 06976715) Active 786.[address] [facility] [place] Dysarthria (SNOMED CT 1887642) Active 784.51 M CORRINEJESSEKJ Ortega [facility] [place] Dyspnea (SNOMED CT 824324680) Active 786.[address] [facility] [place] Eruption due to drug Active 65027227 TARIQAbdiaziz TORY [facility] [place] Gastroesophageal reflux disease Active 163421695 KJ POTTER [facility] [place] Hallux valgus AND bunion Active 525259008 HORSKwame HDEISY Royce [facility] [place] Joint pain (SNOMED CT 07754994) Active 719.40 DEISY CONTR[facility]AS [facility] [place] Joint swelling (SNOMED CT 958529873) Active 719.[address] [facility] [place] Knee pain Active 94397601 JENNIFER LINDSEY [facility] [place] Muscle weakness (SNOMED CT 09754586) Active 728.[address] [facility] [place] Neuropathy Active 875610037 KJ POTTER RN [facility] [place] Osteoarthritis Active 715.[address] [facility] [place] Parkinson's disease Active 24247474 ETHAN POTTER [facility] [place] Peripheral Neuropathy Active 356.9 DASARAJU,P URUSHOTHAMA V [facility] [place] Personal History of Exposure to Agent Gautier Active V15.[address] [facility] [place] Polyp of colon (SNOMED CT 31769916) Active 211.[address] [facility] [place] Restless legs Active 31446780 PATRICK WHITE [facility] [place] Rheumatoid arthritis Active 13000831 Abdiaziz POTTER [facility] [place] Screening, Malignancy Active V76.[address] [facility] [place] Sleep apnea Active 31408165 KJ POTTER RN [facility] [place] Synovial cyst of popliteal space (SNOMED CT 20873186) Active 727.[address] [facility] [place] Tobacco dependence in remission Active 022881793 KJ POTTER [facility] [place] Tobacco use Active 750996047 JENNIFER LINDSEY [facility] [place] Tremor Active 78007984 JENNIFER LINDSEY K S [facility] [place] Unresolved Active 25649117 JENNIFER LINDSEY [facility] [place] Unresolved Active 36527338 JENNIFER LINDSEY [facility] [place] Radiology Reports: +/- 30 days of the encounter No Data Provided for This Section Pathology Reports: +/- 30 days of the encounter No Data Provided for This Section Encounter Notes: All associated encounter notes This section contains the clinical notes associated to the Encounter. Date/Time Encounter Note(s) Provider Source Jan 30, 2019 03:56 PM CARE MANAGEMENT NOTE: LOCAL TITLE: EK-PACT CARE MANAGEMENT STANDARD TITLE: CARE MANAGEMENT NOTE DATE OF NOTE: JAN 30, 2019@15:56 ENTRY DATE: JAN 30, 2019@15:56:37 AUTHOR: JULIO LANG EXP COSIGNER: URGENCY: STATUS: COMPLETED PC from vet stating that he had an appt with Dr. Howe in November that he found out is not covered under the [employer] as his consult had . Explaned that the auth # and length of coverage for the consult is given to the and the [employer] provider. It is the responsibility of both parties to be aware of the ending date and make sure no appts are scheduled after ending date. He asked if he would be responsible for that office visit and was informed that this speech writer's understanding that no back dating is allowed under [employer]. Suggest he [facility] for further information about this. He states he thinks that is who he had just talked to and was told the same information. He asked if the medication that was recently prescribed by Dr. Howe is covered and was informed that this is covered under [place] pharmacy and he is copay exempt so no charges for this med. Vet informed that this speech writer will put in a new consult for neurology for provider to sign and he will be contacted by [facility] for scheduling. He v/u. Tme spent: 12 min /sofya/ JULIO LANG RN Signed: 01/30/2019 16:11 Receipt Acknowledged By: 01/30/2019 17:41 /sofya/ JULIO RUCKER [facility]
--- OUTSIDE RECORDS SUMMARY | 2019-12-04 22:05 | XMS REPORT | Encounter Summary ---
Author Author Department of [facility] CARLOS sweeney Organization Department of [facility] Address [address] [place] [address] Phone Unavailable Care Team Providers Care South Asian History Professor Name Role Phone TARIQKJ PCP Unavailable Insurance [...] PLAN G MEDICARE SUPPLEMENT Dec PLAN G [id number] [phone] CARLOS ROMANO PATIENT MEDICARE (WNR) MEDICARE (M) PART A Dec 16, 2014 PART A [id number] CARLOS ROMANO PATIENT MEDICARE (WNR) MEDICARE (M) PART B Dec 16, 2014 PART B [id number] CARLOS ROMANO PATIENT MEDICO DENTAL INSURANCE DENTAL VISIONHEARING Dec 16, 2014 DENTAL VISIONHEAR [id number] [phone] CARLOS ROMANO PATIENT Selected Encounter This section includes the information on record at [facility] for the Encounter. Date/Time Encounter Type Encounter Description Reason Provider Source Jan 08, 2019 07:04 AM Outpatient Encounter ADMIN PAT ACTIVTIES (MASNO NCT) [facility] [place] IHE Encounter Template [...] appointme nts. The data comes from all [place] treatment facilities. Appointment Date/Time Appointment Type Appointment Facili ty Name Apr 02, 2019 09:45 AM AMBULATORY - MEDICINE [facility] Apr 09, 2019 01:30 PM AMBULATORY - MEDICINE [facility] Apr 24, 2019 09:30 AM AMBULATORY - MEDICINE [facility] May 29, 2019 09:00 AM AMBULATORY - NONE [facility] [place] Surgical Procedures: All [...] to adverse reactions to drug (disorder) Eruption [facility], [facility] 15 [place] Jul 17, 2012 Propensity to adverse reactions to drug (disorder) Peripheral edema [facility] 15 Medications: [facility] dispensed (-15 months) and Non-VA Documented (Obtained Outside V A) Section Date Range: 1) prescriptions processed by a [place] pharmacy in the last 15 m [facility], and 2) all medications recorded [...] FOR INHALATION ONCE 1 Nov 16, 2018 [id number] October 17, 2018 KJ POTTER [facility] ALBUTEROL SO4 90MCG/ACTUAT (CFC-F) INHL,ORAL,6.7GM Active INHALE 2 PUFFS BY ORAL INHALATION FOUR TIMES A DAY NEEDED - RINSE MOUTHPIECE FREQUENTLY TO PREVENT CLOGGING Apr 24, 2020 [id number] October 18, 2019 KJ POTTER [facility] ALBUTEROL SO4 90MCG/ACTUAT (CFC-F) INHL,ORAL,6.7GM Discontin ued INHALE 2 PUFFS BY ORAL INHALATION FOUR TIMES A DAY NEEDED - RINSE MOUTHPIECE FREQUENTLY TO PREVENT CLOGGING Apr 24, 2020 [id number] Apr 24, 2019 KJ POTTERT [facility] BUDESONIDE 160MCG/FORMOTEROL FUM 4.5MCG/SPRAY INHL,ORAL,10.2 GM Active INHALE 2 PUFFS BY ORAL INHALATION TWO TIMES A DAY FOR BREATHING. SHAKE WELL. RINSE MOUTH AND SPIT AFTER EACH USE. 2 Apr 24, 2020 [id number] October 17, 2019 KJ JOSHI [facility] CALCIUM 500MG (CA CARBONATE-1.25GM) TAB Active: Susp TAKE ONE TABLET BY MOUTH TWO TIMES A DAY 180 Nov 20, 2020 [id number] Jan 09, 2020 TARIQKJ [facility] CALCIUM 500MG (CA CARBONATE-1.25GM) TAB Discontinued TAKE ONE TABLET BY MOUTH TWO TIMES A DAY 180 Jan 08, 2020 [id number] October 21, 2019 TARIQKJ [facility] [place] CALCIUM 500MG (CA CARBONATE-1.25GM) TAB Discontinued TAKE ONE TABLET BY MOUTH TWO TIMES A DAY 180 Dec 29, 2018 [id number] Oct 01, 2018 [facility] CARBIDOPA 25MG/LEVODOPA 100MG TAB Active TAKE 2 TABLETS BY MOUTH FOUR TIMES A DAY FOR PARKINSON'S DISEASE. DO NOT TAKE WITH FOOD. 240 Nov 24, 2020 [id number] Nov 27, 2019 [facility] [place] CARBIDOPA 25MG/LEVODOPA 100MG TAB Discontinued TAKE T WO TABLETS BY MOUTH FIVE TIMES DAILY FOR PARKINSON'S DISEASE. DO NOT TAKE WITH FOOD. 600 Jul 02, 2020 [id number] Nov 19, 2019 [facility] [place] [facility] CARBIDOPA 25MG/LEVODOPA 100MG TAB Discontinued TAKE 2 TABLETS BY MOUTH FIVE TIMES DAILY FOR PARKINSON'S DISEASE. DO NOT TAKE WITH FOOD. 300 Jun 30, 2020 [id number] Jul 01, 2019 [facility] [place] CARBIDOPA 25MG/LEVODOPA 100MG TAB Discontinued TAKE 2 TABLETS BY MOUTH FOUR TIMES A DAY FOR PARKINSON'S DISEASE. DO NOT TAKE WITH FOOD. 240 Jun 24, 2020 [id number] Jun 26, 2019 [facility] [place] [facility] CARBIDOPA 25MG/LEVODOPA 100MG TAB Discontinued TAKE 2 TABLETS BY MOUTH FOUR TIMES A DAY FOR PARKINSON'S DISEASE. DO NOT TAKE WITH FOOD. 240 Dec 25, 2019 [id number] May 15, 2019 [facility] [place] [facility] CARBIDOPA 25MG/LEVODOPA 100MG TAB Discontinued TAKE 2 TABLETS BY MOUTH FOUR TIMES A DAY FOR PARKINSON'S DISEASE. DO NOT TAKE WITH FOOD. 240 Jun 07, 2019 [id number] Nov 18, 2018 ALLEGRA HOWE [facility] [place] CHOLECALCIFEROL 25MCG (1,000UNIT) TAB Active: Susp TA KE TWO TABLETS BY MOUTH ONCE A DAY FOR VITAMIN D DEFICIENCY 200 Nov 20, 2020 [id number] Dec 172019 [facility] CHOLECALCIFEROL 25MCG (1,000UNIT) TAB Discontinued TA KE TWO TABLETS BY MOUTH ONCE A DAY FOR VITAMIN D DEFICIENCY 200 Dec 25, 2019 [id number] October [facility] [place] CHOLECALCIFEROL 25MCG (1,000UNIT) TAB Discontinued TA KE TWO TABLETS BY MOUTH ONCE A DAY FOR VITAMIN D DEFICIENCY 200 Oct 10, 2018 [id number] Aug 172018 [facility] CLOPIDOGREL BISULFATE 75MG TAB Active: Susp TAKE ONE TABLET BY MOUTH ONCE A DAY TO PREVENT BLOOD CLOTS 90 Apr 24, 2020 [id number] Dec 19, 2019 [facility] CLOPIDOGREL BISULFATE 75MG TAB Discontinued TAKE ONE TABLET BY MOUTH ONCE A DAY TO PREVENT BLOOD CLOTS 90 Jun 01, 2019 [id number] Mar 13, 2019 [facility] [place] DIPHENHYDRAMINE HCL 25MG CAP Non-VA TAKE 1 CAPSULE BY MOUTH EVERY 6 HOURS NEEDED Non-VA Documented by: KJ POTTER nted at: [facility] [address] [address] FLUDROCORTISONE ACETATE 0.1MG TAB Active TAKE ONE TABLET BY M OUTH ONCE A DAY 90 Nov 19, 2020 [id number] Nov 20, 2019 [facility] [place] FOLIC ACID 1MG TAB Non- VA TAKE ONE TABLET BY MOUTH ONCE A DAY N on-VA Documented by: KJ POTTER nted at: [facility] [address] GABAPENTIN 300MG CAP Active TAKE 1 CAPSULE BY M OUTH 5 TIMES A DAY FOR PAIN AND TREMORS. 300 October 17, 2020 [id number] October 18, 2019 [facility] GABAPENTIN 300MG CAP Discontinued TAKE ONE CAPSULE BY MOUTH FOUR TIMES A DAY FOR PAIN AND TREMORS. 240 Jan 08, 2020 [id number] Oct 14, 2019 [facility] [place] [facility] GABAPENTIN 300MG CAP Discontinued TAKE ONE CAPSULE BY MOUTH FOUR TIMES A DAY FOR PAIN AND TREMORS. 240 Mar 08, 2019 [id number] Jan 07, 2019 [facility] [place] [facility] HYDROCODONE 10MG/ACETAMINOPHEN 325MG TAB Active TAKE ONE TABLET (10/325MG) BY MOUTH THREE TIMES A DAY NEEDED FOR PAIN CAUTION: DO NOT EXCEED 4000MG/DAY TOTAL OF ACETAMINOPHEN (APAP) FROM ALL MEDS 90 Dec 20, 2019 [id number] Nov 21, 2019 TARIQKJ SMITH [facility] [address] [address] HYDROCODONE 10MG/ACETAMINOPHEN 325MG TAB Discontinued TAKE ONE TABLET (10/325MG) BY MOUTH THREE TIMES A DAY NEEDED FOR PAIN CAUTION: DO NOT EXCEED 4000MG/DAY TOTAL OF ACETAMINOPHEN (APAP) FROM ALL MEDS 90 Sep 17, 020 [id number] Sep 04, 2019 [facility] [place] HYDROCODONE 10MG/ACETAMINOPHEN 325MG TAB Discontinued TAKE ONE TABLET BY MOUTH THREE TIMES A DAY NEEDED FOR PAIN CAUTION: DO NOT EXCEED 4000MG/DAY TOTAL OF ACETAMINOPHEN (APAP) FROM ALL MEDS 90 Jul 26, 2019 [id number] Jun 26, 2019 TARIQ,[facility] [place] HYDROCODONE 10MG/ACETAMINOPHEN 325MG TAB Discontinued TAKE ONE TABLET BY MOUTH THREE TIMES A DAY NEEDED FOR PAIN CAUTION: DO NOT EXCEED 4000MG/DAY TOTAL OF ACETAMINOPHEN (APAP) FROM ALL MEDS 90 Jun 27, 2019 [id number] May 29, 2019 TARIQ,[facility] [place] HYDROCODONE 10MG/ACETAMINOPHEN 325MG TAB Discontinued TAKE ONE TABLET BY MOUTH THREE TIMES A DAY NEEDED FOR PAIN CAUTION: DO NOT EXCEED 4000MG/DAY TOTAL OF ACETAMINOPHEN (APAP) FROM ALL MEDS 90 May 08, 2019 [id number] Apr 08, 2019 TARIQ,[facility] [place] HYDROCODONE 10MG/ACETAMINOPHEN 325MG TAB Discontinued TAKE ONE TABLET BY MOUTH THREE TIMES A DAY NEEDED FOR PAIN CAUTION: DO NOT EXCEED 4000MG/DAY TOTAL OF ACETAMINOPHEN (APAP) FROM ALL MEDS 90 Mar 28, 2019 [id number] Feb 26, 2019 [facility] [place] HYDROCODONE 10MG/ACETAMINOPHEN 325MG TAB Discontinued TAKE ONE TABLET BY MOUTH THREE TIMES A DAY NEEDED FOR PAIN CAUTION: DO NOT EXCEED 4000MG/DAY TOTAL OF ACETAMINOPHEN (APAP) FROM ALL MEDS 90 Feb 06, 2019 [id number] Jan 07, 2019 [facility] [place] HYDROCODONE 10MG/ACETAMINOPHEN 325MG TAB Discontinued TAKE ONE TABLET BY MOUTH THREE TIMES A DAY NEEDED FOR PAIN CAUTION: DO NOT EXCEED 4000MG/DAY TOTAL OF ACETAMINOPHEN (APAP) FROM ALL MEDS 90 Dec 05, 2018 [id number] November 05, 2018 [facility] [place] HYDROCODONE 10MG/ACETAMINOPHEN 325MG TAB Discontinued TAKE ONE TABLET BY MOUTH THREE TIMES A DAY NEEDED FOR PAIN CAUTION: DO NOT EXCEED 4000MG/DAY TOTAL OF ACETAMINOPHEN (APAP) FROM ALL MEDS 90 October 25, 2018 [id number] Sep 25, 2018 [facility] [place] HYDROCODONE 10MG/ACETAMINOPHEN 325MG TAB TAKE ONE TABLET (10/325MG) BY MOUTH THREE TIMES A DAY NEEDED FOR PAIN CAUTION: DO NOT EXCEED 4000MG/DAY TOTAL OF ACETAMINOPHEN (APAP) FROM ALL MEDS 90 November 16, 2019 [id number] October 18, 2019 [facility] METHOTREXATE NA 2.5MG TAB Active TAKE SEVEN TABLETS BY MOUTH EVERY WEEK 90 October 17, 2020 [id number] November 04, 2019 [facility] METHOTREXATE NA 2.5MG TAB Discontinued TAKE SEVEN TABLETS BY MOUTH EVERY WEEK 90 May 09, 2020 [id number] Aug 16, 2019 NASH KULKARNI [facility] METHOTREXATE NA 2.5MG TAB Discontinued TAKE SEVEN TABLETS BY MOUTH EVERY WEEK 90 Aug 04, 2019 [id number] Feb 22, 2019 YOU GOMEZ [facility] [place] NORTRIPTYLINE HCL 10MG CAP Active TAKE 2 CAPSULES BY MO UTH AT BEDTIME NEEDED 120 Apr 02, 2020 [id number] Nov 20, 2019 [facility] [place] NORTRIPTYLINE HCL 10MG CAP Discontinued TAKE 2 CAPSUL ES BY MOUTH AT BEDTIME NEEDED 120 Mar 20, 2019 [id number] Jan 23, 2019 [facility] OMEPRAZOLE 20MG CAP,EC Active TAKE 1 CAPSULE BY MOUTH EVERY MORNING TO LOWER STOMACH ACID. TAKE 30 MINUTES PRIOR TO FOOD. 90 October 17, 2020 [id number] October 21, 2019 [facility] OMEPRAZOLE 20MG CAP,EC Discontinued TAKE 1 CAPSULE BY MOUTH EVERY MORNING TO LOWER STOMACH ACID. TAKE 30 MINUTES PRIOR TO FOOD. 90 Oct 02, 2019 [id number] Aug 02, 2019 [facility] [place] PREDNISONE 1MG TAB Discontinued TAKE THREE TABLETS B Y MOUTH ONCE A DAY FOR INFLAMMATION AND IMMUNE RESPONSE. TAKE WITH FOOD OR MILK. 270 Fe 2019 [id number] Apr 24, 2019 [facility] PREDNISONE 1MG TAB Discontinued TAKE FOUR TABLETS BY MOUTH ONCE A D AY 360 Apr 22, 2019 [id number] Jan 24, 2019 [facility] [place] PREDNISONE 1MG TAB Discontinued TAKE FOUR TABLETS BY MOUTH ONCE A D AY 360 Dec 29, 2018 [id number] Oct 01, 2018 NASH KULKARNI [facility] PREDNISONE 1MG TAB TAKE THREE TABLETS B Y MOUTH ONCE A DAY FOR INFLAMMATION AND IMMUNE RESPONSE. TAKE WITH FOOD OR MILK. 270 Ap r 2019 [id number] Jul 13, 2019 [facility] [place] PREDNISONE 5MG TAB Discontinued TAKE ONE TABLET BY MOUTH ONCE A DAY WITH FOOD 60 Aug 01, 2019 [id number] Sep 25, 2018 [facility] [place] ROPINIROLE HCL 1MG TAB Active TAKE ONE TABLET BY MOUTH AT BED TIME 90 October 17, 2020 [id number] Nov 25, 2019 [facility] ROPINIROLE HCL 1MG TAB Discontinued TAKE ONE TABLET BY MOUTH AT BED TIME 90 Dec 05, 2019 [id number] Sep 03, 2019 KRYSTAL DEJESUS [facility] [place] ROPINIROLE HCL 1MG TAB Discontinued TAKE ONE TABLET BY MOUTH AT BED TIME 90 Dec 13, 2018 [id number] Sep 12, 2018 [facility] [place] TAMSULOSIN HCL 0.4MG CAP Active: Susp TAKE 1 CAPSULE BY MOUTH ONCE A DAY FOR PROSTATE. TAKE AT THE SAME TIME EACH DAY WITH FOOD. 90 Sep 30 1 [id number] Dec 20, 2019 KJ POTTER [facility] [place] TAMSULOSIN HCL 0.4MG CAP Discontinued TAKE 1 CAPSULE BY MOUTH ONCE A DAY FOR PROSTATE. TAKE AT THE SAME TIME EACH DAY WITH FOOD. 90 Sep 12 0 [id number] Jun 24, 2019 L[facility] BRUCE [facility] ent(s) Provider Source Abnormal radiologic density Active [id number] KJ HWANG [facility] [place] Allergic rhinitis Active [id number] LADY SALAZAR [facility] [place] Anemia Active [id number] [facility] [place] [facility] Chest pain (SNOMED CT 38243700) Active 786.50 KJ POTTER [facility] [place] Chondrocalcinosis Active 033421334 JASONYOU [facility] [place] Chronic obstructive lung disease Active 75166670 [facility] [place] [facility] Coronary artery disease Active 47807220 Angella LINDSEY Toshia [facility] [place] Cough Active 86267062 LADY SALAZAR [place] Angella Lvoe [facility] [place] Cough (SNOMED CT 99902582) Active 786.2 MIGUEL A SHELDONKJ Ortega [facility] [place] Dysarthria (SNOMED CT 0296772) Active 784.51 M CORRINEJESSEKJ Ortega [facility] [place] Dyspnea (SNOMED CT 335904674) Active 786.09 KJ BARKSDALE [facility] [place] Eruption due to drug Active 28619295 Abdiaziz POTTER [facility] [place] [facility] Gastroesophageal reflux disease Active 383992443 KJ POTTER [facility] [place] [facility] Hallux valgus AND bunion Active 841311519 DEISY GERMAIN Royce [facility] [place] Joint pain (SNOMED CT 29511900) Active 719.40 DEISY CONTRERAS [facility] [place] Joint swelling (SNOMED CT 467082157) Active 719.00 KJ POTTER [facility] [place] [facility] Knee pain Active 52593953 JENNIFER LINDSEY [facility] [place] Muscle weakness (SNOMED CT 81621759) Active 728.87 KJ POTTER [facility] [place] [facility] Neuropathy Active 095412454 KJ POTTER RN [facility] [place] Osteoarthritis Active 715.36 DYAN SERVIN [facility] [place] Parkinson's disease Active 63080805 TARIQETHAN CHUNG [facility] [place] Peripheral Neuropathy Active 356.9 DASARAJU,P URUSHOTHAMA V [facility] [place] [facility] Personal History of Exposure to Agent Bourbon Active V15.89 DEISY CONTRERAS [facility] [place] Polyp of colon (SNOMED CT 51920274) Active 211.3 TARIQKJ SMITH [facility] [place] Restless legs Active 42539028 PATRICK WHITE [facility] [place] Rheumatoid arthritis Active 18510629 Abdiaziz POTTER [facility] [place] Screening, Malignancy Active V76.89 LISSETH TOLEDO [facility] [place] Sleep apnea Active 07290614 KJ POTTER RN [facility] [place] Synovial cyst of popliteal space (SNOMED CT 64655484) Active 727.51 KJ POTTER [facility] [place] [facility] Tobacco dependence in remission Active 253953534 KJ POTTER [facility] [place] Tobacco use Active 004983473 JENNIFER LINDSEY [facility] [place] Tremor Active 81223902 JENNIFER LINDSEY K S [facility] [place] Unresolved Active 82921434 JENNIFER LINDSEY [facility] [place] Unresolved Active 94760112 JENNIFER LINDSEY [facility] [place] Radiology Reports: +/- 30 days of the encounter No Data Provided for This Section Pathology Reports: +/- 30 days of the encounter No Data Provided for This Section Encounter Notes: All associated encounter notes This section contains the clinical notes associated to the Encounter. Date/Time Encounter Note(s) Provider Source Jan 08, 2019 07:04 AM ACCOUNTING OF DISCLOSURES NO TE: LOCAL TITLE: STATE PRESCRIPTION DRUG MONITORING PROGRAM-EK STANDARD TITLE: ACCOUNTING OF DISCLOSURES NOTE DATE OF NOTE: JAN 08, 2019@07:04 ENTRY DATE: JAN 08, 2019@07:04:21 AUTHOR: KJ POTTER EXP COSIGNER: URGENCY: STATUS: COMPLETED STATE PRESCRIPTION DRUG MONITORING PROGRAM (SPDMP): Purpose: VA and the SPD are exchanging information so that the VA provider can manage your health care. The State may use this information to monitor controlled substance prescriptions and for law enforcement purposes. I reviewed patient's State Prescription Drug Monitoring Program (SPDMP) report prior to prescribing Schedule II or Schedule III medications. Report request number State: [place] FINDINGS: Significant Non-VA prescriptions found 11/02/18 oxycodone #28, 7 days Alexys Lind MD, [place], [place] filled at [facility] // KJ POTTER [facility] Signed: 01/08/2019 07:07 KJ POTTER [facility]
--- OUTSIDE RECORDS SUMMARY | 2019-12-04 22:05 | XMS REPORT | Encounter Summary ---
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 Date/Time Encounter Type Encounter Description Reason Provider Source Jan 22, 2019 10:41 AM Outpatient Encounter PRIMARY CARE/MEDICINE CASSIDY LINDSEY [facility], [facility] 15 IHE Encounter Template Text not used by [place] Assessments - Encounter Diagnoses No Data Provided for This Section Plan of Treatment: Future Appointments (+ 6 months) and Future Tests (+/- 45 day s) The Plan of Treatment section includes future care activities for the patient fr om all [place] treatment facilities. This section includes future appointments and fu ture orders which are active, pending or scheduled. Future Appointments This section includes appointments that were scheduled t o occur 6 months from the date of the Encounter, up to a maximum of 20 appointme nts. The data comes from all [place] treatment facilities. Appointment Date/Time Appointment Type Appointment Facili ty Name Apr 02, 2019 09:45 AM AMBULATORY - MEDICINE [facility] Apr 09, 2019 01:30 PM AMBULATORY - MEDICINE [facility] Apr 24, 2019 09:30 AM AMBULATORY - MEDICINE [facility] May 29, 2019 09:00 AM AMBULATORY - NONE [facility] [place] Surgical Procedures: All [...] patient. The data comes from a ll [place] treatment facilities. It does not list Allergies/ADRs that were removed or entered in error. Some allergies/ADRs may be reported in t he Immunization section. Allergen Event Date Event Type Reaction(s) Severity Source PANTOPRAZOLE Oct 01, 2018 Propensity to adverse reactions to drug (disorder) Eruption [facility] 15 PEN[place] Jul 17, 2012 Propensity to adverse reactions to drug (disorder) Peripheral edema [facility] 15 Medications: VA dispensed (-15 months) and Non-VA Documented (Obtained Outside V A) Section Date Range: 1) prescriptions processed by a [place] pharmacy in the last 15 m [facility], and 2) all medications recorded in the [place] medical record as "non-VA medic ations". Pharmacy terms refer to [place] pharmacy's work on prescriptions. VA patient s are advised to take their medications as instructed by their health care team. The data comes from all [place] treatment facilities. Glossary of Pharmacy Terms:Active = A prescription that can be filled at the local [place] pharmacy.Active: On Hold = An active prescription that will not be filled until pharmacy resolves the issue.Active: Susp = An active prescription that is not scheduled to be filled yet.Clinic Order = A medication received during a visit to a [place] clinic or emergency department (currently not available).Discontinued [...] may be a prescription from either the [place] or other providers that was filled outside the [place]. Or, it may be an over the [...] FOR INHALATION ONCE 1 Nov 16, 2018 [id number] October 17, 2018 KJ DANIELSON [facility] ALBUTEROL SO4 90MCG/ACTUAT (CFC-F) INHL,ORAL,6.7GM Active INHALE 2 PUFFS BY ORAL INHALATION FOUR TIMES A DAY NEEDED - RINSE MOUTHPIECE FREQUENTLY TO PREVENT CLOGGING 1 Apr 24, 2020 [id number] October 18, 2019 KJ DANIELSON [facility] ALBUTEROL SO4 90MCG/ACTUAT (CFC-F) INHL,ORAL,6.7GM Discontin ued INHALE 2 PUFFS BY ORAL INHALATION FOUR TIMES A DAY NEEDED - RINSE MOUTHPIECE FREQUENTLY TO PREVENT CLOGGING 2 Apr 24, 2020 [id number] Apr 24, 2019 KJ DANIELSONT [facility] BUDESONIDE 160MCG/FORMOTEROL FUM 4.5MCG/SPRAY INHL,ORAL,10.2 GM Active INHALE 2 PUFFS BY ORAL INHALATION TWO TIMES A DAY FOR BREATHING. SHAKE WELL. RINSE MOUTH AND SPIT AFTER EACH USE. 2 Apr 24, 2020 [id number] October 17, 2019 KJ JOSHI [facility] CALCIUM 500MG (CA CARBONATE-1.25GM) TAB Active: Susp TAKE ONE TABLET BY MOUTH TWO TIMES A DAY 180 Nov 20, 2020 [id number] Jan 09, 2020 KJ DANIELSON [facility] CALCIUM 500MG (CA CARBONATE-1.25GM) TAB Discontinued TAKE ONE TABLET BY MOUTH TWO TIMES A DAY 180 Jan 08, 2020 [id number] October 21, 2019 KJ DANIELSON [facility] [place] CALCIUM 500MG (CA CARBONATE-1.25GM) TAB Discontinued TAKE ONE TABLET BY MOUTH TWO TIMES A DAY 180 Dec 29, 2018 [id number] Oct 01, 2018 [facility] CARBIDOPA 25MG/LEVODOPA 100MG TAB Active TAKE 2 TABLETS BY MOUTH FOUR TIMES A DAY FOR PARKINSON'S DISEASE. DO NOT TAKE WITH FOOD. 240 Nov 24, 2020 [id number] Nov 27, 2019 [facility] [place] CARBIDOPA 25MG/LEVODOPA 100MG TAB Discontinued TAKE T WO TABLETS BY MOUTH FIVE TIMES DAILY FOR PARKINSON'S DISEASE. DO NOT TAKE WITH FOOD. 600 Jul 02, 2020 [id number] Nov 19, 2019 [facility] [place] [facility] CARBIDOPA 25MG/LEVODOPA 100MG TAB Discontinued TAKE 2 TABLETS BY MOUTH FIVE TIMES DAILY FOR PARKINSON'S DISEASE. DO NOT TAKE WITH FOOD. 300 Jun 30, 2020 [id number] Jul 01, 2019 [facility] [place] CARBIDOPA 25MG/LEVODOPA 100MG TAB Discontinued TAKE 2 TABLETS BY MOUTH FOUR TIMES A DAY FOR PARKINSON'S DISEASE. DO NOT TAKE WITH FOOD. 240 Jun 24, 2020 [id number] Jun 26, 2019 [facility] [place] [facility] CARBIDOPA 25MG/LEVODOPA 100MG TAB Discontinued TAKE 2 TABLETS BY MOUTH FOUR TIMES A DAY FOR PARKINSON'S DISEASE. DO NOT TAKE WITH FOOD. 240 Dec 25, 2019 [id number] May 15, 2019 [facility] [place] [facility] CARBIDOPA 25MG/LEVODOPA 100MG TAB Discontinued TAKE 2 TABLETS BY MOUTH FOUR TIMES A DAY FOR PARKINSON'S DISEASE. DO NOT TAKE WITH FOOD. 240 Jun 07, 2019 [id number] Nov 18, 2018 ALLEGRA HOWE [facility] [place] CHOLECALCIFEROL 25MCG (1,000UNIT) TAB Active: Susp TA KE TWO TABLETS BY MOUTH ONCE A DAY FOR VITAMIN D DEFICIENCY 200 Nov 20, 2020 [id number] Dec 172019 [facility] CHOLECALCIFEROL 25MCG (1,000UNIT) TAB Discontinued TA KE TWO TABLETS BY MOUTH ONCE A DAY FOR VITAMIN D DEFICIENCY 200 Dec 25, 2019 [id number] October [facility] [place] CHOLECALCIFEROL 25MCG (1,000UNIT) TAB Discontinued TA KE TWO TABLETS BY MOUTH ONCE A DAY FOR VITAMIN D DEFICIENCY 200 Oct 10, 2018 [id number] Aug 172018 [facility] CLOPIDOGREL BISULFATE 75MG TAB Active: Susp TAKE ONE TABLET BY MOUTH ONCE A DAY TO PREVENT BLOOD CLOTS 90 Apr 24, 2020 [id number] Dec 19, 2019 [facility] CLOPIDOGREL BISULFATE 75MG TAB Discontinued TAKE ONE TABLET BY MOUTH ONCE A DAY TO PREVENT BLOOD CLOTS 90 Jun 01, 2019 [id number] Mar 13, 2019 [facility] [place] DIPHENHYDRAMINE HCL 25MG CAP Non-VA TAKE 1 CAPSULE BY MOUTH EVERY 6 HOURS NEEDED Non-VA Documented by: KJ DANIELSON nted at: [facility] FLUDROCORTISONE ACETATE 0.1MG TAB Active TAKE ONE TABLET BY M OUTH ONCE A DAY 90 Nov 19, 2020 [id number] Nov 20, 2019 [facility] [place] FOLIC ACID 1MG TAB Non- VA TAKE ONE TABLET BY MOUTH ONCE A DAY N on-VA Documented by: KJ DANIELSON nted at: [facility] GABAPENTIN 300MG CAP Active TAKE 1 CAPSULE BY M OUTH 5 TIMES A DAY FOR PAIN AND TREMORS. 300 October 17, 2020 [id number] October 18, 2019 [facility] GABAPENTIN 300MG CAP Discontinued TAKE ONE CAPSULE BY MOUTH FOUR TIMES A DAY FOR PAIN AND TREMORS. 240 Jan 08, 2020 [id number] Oct 14, 2019 [facility] [place] GABAPENTIN 300MG CAP Discontinued TAKE ONE CAPSULE BY MOUTH FOUR TIMES A DAY FOR PAIN AND TREMORS. 240 Mar 08, 2019 [id number] Jan 07, 2019 [facility] [place] HYDROCODONE 10MG/ACETAMINOPHEN 325MG TAB Active TAKE ONE TABLET (10/325MG) BY MOUTH THREE TIMES A DAY NEEDED FOR PAIN CAUTION: DO NOT EXCEED 4000MG/DAY TOTAL OF ACETAMINOPHEN (APAP) FROM ALL MEDS 90 Dec 20, 2019 [id number] Nov 21, 2019 KJ DANIELSON [facility] HYDROCODONE 10MG/ACETAMINOPHEN 325MG TAB Discontinued TAKE ONE TABLET (10/325MG) BY MOUTH THREE TIMES A DAY NEEDED FOR PAIN CAUTION: DO NOT EXCEED 4000MG/DAY TOTAL OF ACETAMINOPHEN (APAP) FROM ALL MEDS 90 Sep 17, 020 [id number] Sep 04, 2019 [facility] [place] HYDROCODONE 10MG/ACETAMINOPHEN 325MG TAB Discontinued TAKE ONE TABLET BY MOUTH THREE TIMES A DAY NEEDED FOR PAIN CAUTION: DO NOT EXCEED 4000MG/DAY TOTAL OF ACETAMINOPHEN (APAP) FROM ALL MEDS 90 Jul 26, 2019 [id number] Jun 26, 2019 [facility] [place] HYDROCODONE 10MG/ACETAMINOPHEN 325MG TAB Discontinued TAKE ONE TABLET BY MOUTH THREE TIMES A DAY NEEDED FOR PAIN CAUTION: DO NOT EXCEED 4000MG/DAY TOTAL OF ACETAMINOPHEN (APAP) FROM ALL MEDS 90 Jun 27, 2019 [id number] May 29, 2019 [facility] [place] HYDROCODONE 10MG/ACETAMINOPHEN 325MG TAB Discontinued TAKE ONE TABLET BY MOUTH THREE TIMES A DAY NEEDED FOR PAIN CAUTION: DO NOT EXCEED 4000MG/DAY TOTAL OF ACETAMINOPHEN (APAP) FROM ALL MEDS 90 May 08, 2019 [id number] Apr 08, 2019 [facility] [place] HYDROCODONE 10MG/ACETAMINOPHEN 325MG TAB Discontinued TAKE ONE TABLET BY MOUTH THREE TIMES A DAY NEEDED FOR PAIN CAUTION: DO NOT EXCEED 4000MG/DAY TOTAL OF ACETAMINOPHEN (APAP) FROM ALL MEDS 90 Mar 28, 2019 [id number] Feb 26, 2019 [facility] [place] HYDROCODONE 10MG/ACETAMINOPHEN 325MG TAB Discontinued TAKE ONE TABLET BY MOUTH THREE TIMES A DAY NEEDED FOR PAIN CAUTION: DO NOT EXCEED 4000MG/DAY TOTAL OF ACETAMINOPHEN (APAP) FROM ALL MEDS 90 Feb 06, 2019 [id number] Jan 07, 2019 [facility] [place] HYDROCODONE 10MG/ACETAMINOPHEN 325MG TAB Discontinued TAKE ONE TABLET BY MOUTH THREE TIMES A DAY NEEDED FOR PAIN CAUTION: DO NOT EXCEED 4000MG/DAY TOTAL OF ACETAMINOPHEN (APAP) FROM ALL MEDS 90 Dec 05, 2018 [id number] November 05, 2018 [facility] [place] HYDROCODONE 10MG/ACETAMINOPHEN 325MG TAB Discontinued TAKE ONE TABLET BY MOUTH THREE TIMES A DAY NEEDED FOR PAIN CAUTION: DO NOT EXCEED 4000MG/DAY TOTAL OF ACETAMINOPHEN (APAP) FROM ALL MEDS 90 October 25, 2018 [id number] Sep 25, 2018 [facility] [place] HYDROCODONE 10MG/ACETAMINOPHEN 325MG TAB TAKE ONE TABLET (10/325MG) BY MOUTH THREE TIMES A DAY NEEDED FOR PAIN CAUTION: DO NOT EXCEED 4000MG/DAY TOTAL OF ACETAMINOPHEN (APAP) FROM ALL MEDS 90 November 16, 2019 [id number] October 18, 2019 [facility] METHOTREXATE NA 2.5MG TAB Active TAKE SEVEN TABLETS BY MOUTH EVERY WEEK 90 October 17, 2020 [id number] November 04, 2019 [facility] METHOTREXATE NA 2.5MG TAB Discontinued TAKE SEVEN TABLETS BY MOUTH EVERY WEEK 90 May 09, 2020 [id number] Aug 16, 2019 NASH KULKARNI [facility] METHOTREXATE NA 2.5MG TAB Discontinued TAKE SEVEN TABLETS BY MOUTH EVERY WEEK 90 Aug 04, 2019 [id number] Feb 22, 2019 YOU GOMEZ [facility] [place] NORTRIPTYLINE HCL 10MG CAP Active TAKE 2 CAPSULES BY MO UTH AT BEDTIME NEEDED 120 Apr 02, 2020 [id number] Nov 20, 2019 [facility] [place] NORTRIPTYLINE HCL 10MG CAP Discontinued TAKE 2 CAPSUL ES BY MOUTH AT BEDTIME NEEDED 120 Mar 20, 2019 [id number] Jan 23, 2019 [facility] OMEPRAZOLE 20MG CAP,EC Active TAKE 1 CAPSULE BY MOUTH EVERY MORNING TO LOWER STOMACH ACID. TAKE 30 MINUTES PRIOR TO FOOD. 90 October 17, 2020 [id number] October 21, 2019 [facility] OMEPRAZOLE 20MG CAP,EC Discontinued TAKE 1 CAPSULE BY MOUTH EVERY MORNING TO LOWER STOMACH ACID. TAKE 30 MINUTES PRIOR TO FOOD. 90 Oct 02, 2019 [id number] Aug 02, 2019 [facility] [place] PREDNISONE 1MG TAB Discontinued TAKE THREE TABLETS B Y MOUTH ONCE A DAY FOR INFLAMMATION AND IMMUNE RESPONSE. TAKE WITH FOOD OR MILK. 270 Fe 2019 [id number] Apr 24, 2019 [facility] PREDNISONE 1MG TAB Discontinued TAKE FOUR TABLETS BY MOUTH ONCE A D AY 360 Apr 22, 2019 [id number] Jan 24, 2019 [facility] [place] PREDNISONE 1MG TAB Discontinued TAKE FOUR TABLETS BY MOUTH ONCE A D AY 360 Dec 29, 2018 [id number] Oct 01, 2018 NASH KULKARNI V [facility] PREDNISONE 1MG TAB TAKE THREE TABLETS B Y MOUTH ONCE A DAY FOR INFLAMMATION AND IMMUNE RESPONSE. TAKE WITH FOOD OR MILK. 270 Ap r 2019 [id number] Jul 13, 2019 [facility] [place] PREDNISONE 5MG TAB Discontinued TAKE ONE TABLET BY MOUTH ONCE A DAY WITH FOOD 60 Aug 01, 2019 [id number] Sep 25, 2018 [facility] [place] ROPINIROLE HCL 1MG TAB Active TAKE ONE TABLET BY MOUTH AT BED TIME 90 October 17, 2020 [id number] Nov 25, 2019 [facility] ROPINIROLE HCL 1MG TAB Discontinued TAKE ONE TABLET BY MOUTH AT BED TIME 90 Dec 05, 2019 [id number] Sep 03, 2019 DEJESUSKRYSTAL Freed [facility] [place] ROPINIROLE HCL 1MG TAB Discontinued TAKE ONE TABLET BY MOUTH AT BED TIME 90 Dec 13, 2018 [id number] Sep 12, 2018 [facility] [place] TAMSULOSIN HCL 0.4MG CAP Active: Susp TAKE 1 CAPSULE BY MOUTH ONCE A DAY FOR PROSTATE. TAKE AT THE SAME TIME EACH DAY WITH FOOD. 90 Sep 30 1 [id number] Dec 20, 2019 [facility] [place] TAMSULOSIN HCL 0.4MG CAP Discontinued TAKE 1 CAPSULE BY MOUTH ONCE A DAY FOR PROSTATE. TAKE AT THE SAME TIME EACH DAY WITH FOOD. 90 Sep 12 0 [id number] Jun 24, 2019 LIS BRUCE [facility] [place] Problems (Conditions): All historical and current Section Date Range: From patient's date of to the date document was create d. This section includes a list of Problems (Conditions) know n to [facility] for the patient. It includes both active and inacti ve problems (conditions). The data comes from all [place] treatment facilities. Problem Status Problem Code Date of Onset Date of Resolution Comm ent(s) Provider Source Abnormal radiologic density Active [id number] KJ HWANG [facility] [place] Allergic rhinitis Active 84448068 LADY SALAZAR [facility] [place] Anemia Active 333094094 [facility] [place] [facility] Chest pain (SNOMED CT 04392742) Active 786.50 KJ DANIELSON [facility] [place] Chondrocalcinosis Active [id number] JASONYOU [facility] [place] Chronic obstructive lung disease Active 18110517 [facility] [place] [facility] Coronary artery disease Active 85991482 Angella LINDSEY Toshia [facility] [place] Cough Active 33551171 LADY SALAZAR S [facility] [place] Cough (SNOMED CT 19158853) Active 786.2 KJ BARRON [facility] [place] Dysarthria (SNOMED CT 9749323) Active 784.51 M KJ WONG [facility] [place] Dyspnea (SNOMED CT 008545653) Active 786.09 KJ BARKSDALE [facility] [place] Eruption due to drug Active 46288946 Abdiaziz DANIELSON [facility] [place] Gastroesophageal reflux disease Active 561810105 KJ DANIELSON [facility] [place] Hallux valgus AND bunion Active 017858988 DEISY GERMAIN Royce [facility] [place] Joint pain (SNOMED CT 56576908) Active 719.40 DEISY CONTRERAS [facility] [place] Joint swelling (SNOMED CT 604041832) Active 719.00 KJ DANIELSON [facility] [place] Knee pain Active 87180170 CASSIDY LINDSEY [facility] [place] Muscle weakness (SNOMED CT 16126276) Active 728.87 KJ DANIELSON [facility] [place] Neuropathy Active [id number] KJ DANIELSON RN [facility] [place] Osteoarthritis Active 715.36 DYAN SERVIN [facility] [place] Parkinson's disease Active 92551145 TARIQETHAN CHUNG [facility] [place] Peripheral Neuropathy Active 356.9 DASARAJU,P URUSHOTHAMA V [facility] [place] [facility] Personal History of Exposure to Agent [place] Active V15.89 ANDRÉS CONTRERASAL Royce [facility] [place] [facility] Polyp of colon (SNOMED CT 55313546) Active 211.3 KJ DANIELSON [facility] [place] Restless legs Active 71705370 PATRICK WHITE [facility] [place] Rheumatoid arthritis Active 58214037 Abdiaziz DANIELSON [facility] [place] [facility] Screening, Malignancy Active V76.89 LISSETH TOLEDO [facility] [place] Sleep apnea Active 32075385 KJ DANIELSON RN [facility] [place] Synovial cyst of popliteal space (SNOMED CT 53916562) Active 727.51 KJ DANIELSON [facility] [place] [facility] Tobacco dependence in remission Active 020326593 KJ DANIELSON [facility] [place] Tobacco use Active 127120300 CASSIDY LINDSEY [facility] [place] Tremor Active 80328807 CASSIDY LINDSEY K S [facility] [place] Unresolved Active 70533197 CASSIDY LINDSEY [facility] [place] Unresolved Active 67350973 CASSIDY LINDSEY [facility] [place] Radiology Reports: +/- 30 days of the encounter No Data Provided for This Section Pathology Reports: +/- 30 days of the encounter No Data Provided for This Section Encounter Notes: All associated encounter notes This section contains the clinical notes associated to the Encounter. Date/Time Encounter Note(s) Provider Source Jan 22, 2019 10:41 AM PRIMARY CARE SECURE MESSAGIN G: [facility] TITLE: EK-PRIMARY CARE SECURE MESSAGING STANDARD TITLE: PRIMARY CARE SECURE MESSAGING DATE OF NOTE: JAN 22, 2019@10:41:25 ENTRY DATE: JAN 22, 2019@10:41:26 AUTHOR: CASSIDY LINDSEY EXP COSIGNER: URGENCY: STATUS: COMPLETED ------Original Message ------ Sent: 01/22/2019 10:34 AM From: CARLOS ROMANO [facility] Abdiaziz Danielson_[facility] [place] Subject: Medication Inquiry pleases order Prednisone 1 mg ------Original Message ------ Sent: 01/22/2019 11:41 AM From: CASSIDY LINDSEY To: CARLOS ROMANO Subject: Medication Inquiry Forwarding to covering provider Cassidy Lindsey LPN /sofya/ CASSIDY LINDSEY LPN Signed: 01/22/2019 10:41 Receipt Acknowledged By: 01/22/2019 10:49 /es/ Blue amos DO STAFF PHYSICIAN CASSIDY LINDSEY [facility]
--- OUTSIDE RECORDS SUMMARY | 2019-12-04 22:05 | XMS REPORT | Encounter Summary ---
Author Author Department of [facility] CARLOS sweeney Organization Department of [facility] Address [address] [place] [address] Phone Unavailable Care Team Providers Care Energy Manager Name Role Phone TARIQKJ PCP Unavailable Insurance [...] PLAN G MEDICARE SUPPLEMENT Dec PLAN G [id number] [phone] CARLOS ROMANO PATIENT MEDICARE (WNR) MEDICARE (M) PART A Dec 16, 2014 PART A [id number] CARLOS ROMANO PATIENT MEDICARE (WNR) MEDICARE (M) PART B Dec 16, 2014 PART B [id number] CARLOS ROMANO PATIENT MEDICO DENTAL INSURANCE DENTAL VISIONHEARING Dec 16, 2014 DENTAL VISIONHEAR [id number] [phone] CARLOS ROMANO PATIENT Selected Encounter This section includes the information on record at [facility] for the Encounter. Date/Time Encounter Type Encounter Description Reason Provider Source Jan 08, 2019 03:21 PM Outpatient Encounter ADMIN PAT ACTIVTIES (MASNO NCT) [facility] [place] IHE Encounter [...] data comes from all [place] treatment facilities. Appointment Date/Time Appointment Type Appointment Facili ty Name Apr 02, 2019 09:45 AM AMBULATORY - MEDICINE [facility] Apr 09, 2019 01:30 PM AMBULATORY - MEDICINE [facility] Apr 24, 2019 09:30 AM AMBULATORY - MEDICINE [facility] May 29, 2019 09:00 AM AMBULATORY - NONE [facility] [place] Surgical Procedures: All [...] to adverse reactions to drug (disorder) Eruption [facility] 15 [place] Jul 17, 2012 Propensity to adverse reactions to drug (disorder) Peripheral edema [facility] 15 Medications: VA dispensed (-15 months) and Non-VA Documented (Obtained Outside V A) Section Date Range: 1) prescriptions processed by a [place] pharmacy in the last 15 m [facility], and 2) all medications recorded in the [place] medical record as "non-VA medic ations". Pharmacy terms refer to [place] pharmacy's work on prescriptions. [facility] patient s [...] FOR INHALATION ONCE 1 Nov 16, 2018 [id number] October 17, 2018 KJ POTTER [facility] ALBUTEROL SO4 90MCG/ACTUAT (CFC-F) INHL,ORAL,6.7GM Active INHALE 2 PUFFS BY ORAL INHALATION FOUR TIMES A DAY NEEDED - RINSE MOUTHPIECE FREQUENTLY TO PREVENT CLOGGING Apr 24, 2020 [id number] October 18, [address] [facility] ALBUTEROL SO4 90MCG/ACTUAT (CFC-F) INHL,ORAL,6.7GM Discontin ued INHALE 2 PUFFS BY ORAL INHALATION FOUR TIMES A DAY NEEDED - RINSE MOUTHPIECE FREQUENTLY TO PREVENT CLOGGING Apr 24, 2020 [id number] Apr 24, 2019 [facility] BUDESONIDE 160MCG/FORMOTEROL FUM 4.5MCG/SPRAY INHL,ORAL,10.2 GM Active INHALE 2 PUFFS BY ORAL INHALATION TWO TIMES A DAY FOR BREATHING. SHAKE WELL. RINSE MOUTH AND SPIT AFTER EACH USE. 2 Apr 24, 2020 [id number] October 17, 2019 KJ JOSHI [facility] CALCIUM 500MG (CA CARBONATE-1.25GM) TAB Active: Susp TAKE ONE TABLET BY MOUTH TWO TIMES A DAY 180 Nov 20, 2020 [id number] Jan 09, 2020 TARIQKJ [facility] CALCIUM 500MG (CA CARBONATE-1.25GM) TAB Discontinued TAKE ONE TABLET BY MOUTH TWO TIMES A DAY 180 Jan 08, 2020 [id number] October 21, 2019 TARIQKJ [facility] [place] CALCIUM 500MG (CA CARBONATE-1.25GM) TAB Discontinued TAKE ONE TABLET BY MOUTH TWO TIMES A DAY 180 Dec 29, 2018 [id number] Oct 01, 2018 [facility] CARBIDOPA 25MG/LEVODOPA 100MG TAB Active TAKE 2 TABLETS BY MOUTH FOUR TIMES A DAY FOR PARKINSON'S DISEASE. DO NOT TAKE WITH FOOD. 240 Nov 24, 2020 [id number] Nov 27, 2019 [facility] [place] CARBIDOPA 25MG/LEVODOPA 100MG TAB Discontinued TAKE T WO TABLETS BY MOUTH FIVE TIMES DAILY FOR PARKINSON'S DISEASE. DO NOT TAKE WITH FOOD. 600 Jul 02, 2020 [id number] Nov 19, 2019 [facility] [place] [facility] CARBIDOPA 25MG/LEVODOPA 100MG TAB Discontinued TAKE 2 TABLETS BY MOUTH FIVE TIMES DAILY FOR PARKINSON'S DISEASE. DO NOT TAKE WITH FOOD. 300 Jun 30, 2020 [id number] Jul 01, 2019 [facility] [place] CARBIDOPA 25MG/LEVODOPA 100MG TAB Discontinued TAKE 2 TABLETS BY MOUTH FOUR TIMES A DAY FOR PARKINSON'S DISEASE. DO NOT TAKE WITH FOOD. 240 Jun 24, 2020 [id number] Jun 26, 2019 [facility] [place] [facility] CARBIDOPA 25MG/LEVODOPA 100MG TAB Discontinued TAKE 2 TABLETS BY MOUTH FOUR TIMES A DAY FOR PARKINSON'S DISEASE. DO NOT TAKE WITH FOOD. 240 Dec 25, 2019 [id number] May 15, 2019 [facility] [place] [facility] CARBIDOPA 25MG/LEVODOPA 100MG TAB Discontinued TAKE 2 TABLETS BY MOUTH FOUR TIMES A DAY FOR PARKINSON'S DISEASE. DO NOT TAKE WITH FOOD. 240 Jun 07, 2019 [id number] Nov 18, 2018 ALLEGRA HOWE [facility] [place] CHOLECALCIFEROL 25MCG (1,000UNIT) TAB Active: Susp TA KE TWO TABLETS BY MOUTH ONCE A DAY FOR VITAMIN D DEFICIENCY 200 Nov 20, 2020 [id number] Dec 172019 [facility] CHOLECALCIFEROL 25MCG (1,000UNIT) TAB Discontinued TA KE TWO TABLETS BY MOUTH ONCE A DAY FOR VITAMIN D DEFICIENCY 200 Dec 25, 2019 [id number] October [facility] [place] CHOLECALCIFEROL 25MCG (1,000UNIT) TAB Discontinued TA KE TWO TABLETS BY MOUTH ONCE A DAY FOR VITAMIN D DEFICIENCY 200 Oct 10, 2018 [id number] Aug 172018 [facility] CLOPIDOGREL BISULFATE 75MG TAB Active: Susp TAKE ONE TABLET BY MOUTH ONCE A DAY TO PREVENT BLOOD CLOTS 90 Apr 24, 2020 [id number] Dec 19, 2019 [facility] CLOPIDOGREL BISULFATE 75MG TAB Discontinued TAKE ONE TABLET BY MOUTH ONCE A DAY TO PREVENT BLOOD CLOTS 90 Jun 01, 2019 [id number] Mar 13, 2019 [facility] [place] DIPHENHYDRAMINE HCL 25MG CAP Non-VA TAKE 1 CAPSULE BY MOUTH EVERY 6 HOURS NEEDED Non-VA Documented by: KJ POTTER nted at: [facility] FLUDROCORTISONE ACETATE 0.1MG TAB Active TAKE ONE TABLET BY M OUTH ONCE A DAY 90 Nov 19, 2020 [id number] Nov 20, 2019 [facility] [place] FOLIC ACID 1MG TAB Non- [facility] TAKE ONE TABLET BY MOUTH ONCE A DAY N on-VA Documented by: KJ POTTER nted at: [facility] GABAPENTIN 300MG CAP Active TAKE 1 CAPSULE BY M OUTH 5 TIMES A DAY FOR PAIN AND TREMORS. 300 October 17, 2020 [id number] October 18, 2019 [facility] GABAPENTIN 300MG CAP Discontinued TAKE ONE CAPSULE BY MOUTH FOUR TIMES A DAY FOR PAIN AND TREMORS. 240 Jan 08, 2020 [id number] Oct 14, 2019 [facility] [place] GABAPENTIN 300MG CAP Discontinued TAKE ONE CAPSULE BY MOUTH FOUR TIMES A DAY FOR PAIN AND TREMORS. 240 Mar 08, 2019 [id number] Jan 07, 2019 [facility] [place] [facility] HYDROCODONE 10MG/ACETAMINOPHEN 325MG TAB Active TAKE ONE TABLET (10/325MG) BY MOUTH THREE TIMES A DAY NEEDED FOR PAIN CAUTION: DO NOT EXCEED 4000MG/DAY TOTAL OF ACETAMINOPHEN (APAP) FROM ALL MEDS 90 Dec 20, 2019 [id number] Nov 21, 2019 TARIQKJ SMITH [facility] HYDROCODONE 10MG/ACETAMINOPHEN 325MG TAB Discontinued TAKE ONE TABLET (10/325MG) BY MOUTH THREE TIMES A DAY NEEDED FOR PAIN CAUTION: DO NOT EXCEED 4000MG/DAY TOTAL OF ACETAMINOPHEN (APAP) FROM ALL MEDS 90 Sep 17, 020 [id number] Sep 04, 2019 [facility] [place] HYDROCODONE 10MG/ACETAMINOPHEN 325MG TAB Discontinued TAKE ONE TABLET BY MOUTH THREE TIMES A DAY NEEDED FOR PAIN CAUTION: DO NOT EXCEED 4000MG/DAY TOTAL OF ACETAMINOPHEN (APAP) FROM ALL MEDS 90 Jul 26, 2019 [id number] Jun 26, 2019 TARIQ,[facility] [place] HYDROCODONE 10MG/ACETAMINOPHEN 325MG TAB Discontinued TAKE ONE TABLET BY MOUTH THREE TIMES A DAY NEEDED FOR PAIN CAUTION: DO NOT EXCEED 4000MG/DAY TOTAL OF ACETAMINOPHEN (APAP) FROM ALL MEDS 90 Jun 27, 2019 [id number] May 29, 2019 TARIQ,[facility] [place] HYDROCODONE 10MG/ACETAMINOPHEN 325MG TAB Discontinued TAKE ONE TABLET BY MOUTH THREE TIMES A DAY NEEDED FOR PAIN CAUTION: DO NOT EXCEED 4000MG/DAY TOTAL OF ACETAMINOPHEN (APAP) FROM ALL MEDS 90 May 08, 2019 [id number] Apr 08, 2019 TARIQ,[facility] [place] HYDROCODONE 10MG/ACETAMINOPHEN 325MG TAB Discontinued TAKE ONE TABLET BY MOUTH THREE TIMES A DAY NEEDED FOR PAIN CAUTION: DO NOT EXCEED 4000MG/DAY TOTAL OF ACETAMINOPHEN (APAP) FROM ALL MEDS 90 Mar 28, 2019 [id number] Feb 26, 2019 [facility] [place] HYDROCODONE 10MG/ACETAMINOPHEN 325MG TAB Discontinued TAKE ONE TABLET BY MOUTH THREE TIMES A DAY NEEDED FOR PAIN CAUTION: DO NOT EXCEED 4000MG/DAY TOTAL OF ACETAMINOPHEN (APAP) FROM ALL MEDS 90 Feb 06, 2019 [id number] Jan 07, 2019 [facility] [place] HYDROCODONE 10MG/ACETAMINOPHEN 325MG TAB Discontinued TAKE ONE TABLET BY MOUTH THREE TIMES A DAY NEEDED FOR PAIN CAUTION: DO NOT EXCEED 4000MG/DAY TOTAL OF ACETAMINOPHEN (APAP) FROM ALL MEDS 90 Dec 05, 2018 [id number] November 05, 2018 [facility] [place] HYDROCODONE 10MG/ACETAMINOPHEN 325MG TAB Discontinued TAKE ONE TABLET BY MOUTH THREE TIMES A DAY NEEDED FOR PAIN CAUTION: DO NOT EXCEED 4000MG/DAY TOTAL OF ACETAMINOPHEN (APAP) FROM ALL MEDS 90 October 25, 2018 [id number] Sep 25, 2018 [facility] [place] HYDROCODONE 10MG/ACETAMINOPHEN 325MG TAB TAKE ONE TABLET (10/325MG) BY MOUTH THREE TIMES A DAY NEEDED FOR PAIN CAUTION: DO NOT EXCEED 4000MG/DAY TOTAL OF ACETAMINOPHEN (APAP) FROM ALL MEDS 90 November 16, 2019 [id number] October 18, 2019 [facility] METHOTREXATE NA 2.5MG TAB Active TAKE SEVEN TABLETS BY MOUTH EVERY WEEK 90 October 17, 2020 [id number] November 04, 2019 [facility] METHOTREXATE NA 2.5MG TAB Discontinued TAKE SEVEN TABLETS BY MOUTH EVERY WEEK 90 May 09, 2020 [id number] Aug 16, 2019 NASH KULKARNI [facility] METHOTREXATE NA 2.5MG TAB Discontinued TAKE SEVEN TABLETS BY MOUTH EVERY WEEK 90 Aug 04, 2019 [id number] Feb 22, 2019 YOU GOMEZ [facility] [place] NORTRIPTYLINE HCL 10MG CAP Active TAKE 2 CAPSULES BY MO UTH AT BEDTIME NEEDED 120 Apr 02, 2020 [id number] Nov 20, 2019 [facility] [place] NORTRIPTYLINE HCL 10MG CAP Discontinued TAKE 2 CAPSUL ES BY MOUTH AT BEDTIME NEEDED 120 Mar 20, 2019 [id number] Jan 23, 2019 [facility] OMEPRAZOLE 20MG CAP,EC Active TAKE 1 CAPSULE BY MOUTH EVERY MORNING TO LOWER STOMACH ACID. TAKE 30 MINUTES PRIOR TO FOOD. 90 October 17, 2020 [id number] October 21, 2019 [facility] OMEPRAZOLE 20MG CAP,EC Discontinued TAKE 1 CAPSULE BY MOUTH EVERY MORNING TO LOWER STOMACH ACID. TAKE 30 MINUTES PRIOR TO FOOD. 90 Oct 02, 2019 [id number] Aug 02, 2019 [facility] [place] PREDNISONE 1MG TAB Discontinued TAKE THREE TABLETS B Y MOUTH ONCE A DAY FOR INFLAMMATION AND IMMUNE RESPONSE. TAKE WITH FOOD OR MILK. 270 Fe 2019 [id number] Apr 24, 2019 [facility] PREDNISONE 1MG TAB Discontinued TAKE FOUR TABLETS BY MOUTH ONCE A D AY 360 Apr 22, 2019 [id number] Jan 24, 2019 [facility]UE [facility] [place] PREDNISONE 1MG TAB Discontinued TAKE FOUR TABLETS BY MOUTH ONCE A D AY 360 Dec 29, 2018 [id number] Oct 01, 2018 [facility]H KULKARNI [facility] PREDNISONE 1MG TAB TAKE THREE TABLETS B Y MOUTH ONCE A DAY FOR INFLAMMATION AND IMMUNE RESPONSE. TAKE WITH FOOD OR MILK. 270 Ap r 2019 [id number] Jul 13, 2019 [facility] [place] PREDNISONE 5MG TAB Discontinued TAKE ONE TABLET BY MOUTH ONCE A DAY WITH FOOD 60 Aug 01, 2019 [id number] Sep 25, 2018 [facility] [place] ROPINIROLE HCL 1MG TAB Active TAKE ONE TABLET BY MOUTH AT BED TIME 90 October 17, 2020 [id number] Nov 25, 2019 [facility] ROPINIROLE HCL 1MG TAB Discontinued TAKE ONE TABLET BY MOUTH AT BED TIME 90 Dec 05, 2019 [id number] Sep 03, 2019 KRYSTAL DEJESUS [facility] [place] ROPINIROLE HCL 1MG TAB Discontinued TAKE ONE TABLET BY MOUTH AT BED TIME 90 Dec 13, 2018 [id number] Sep 12, 2018 [facility] [place] TAMSULOSIN HCL 0.4MG CAP Active: Susp TAKE 1 CAPSULE BY MOUTH ONCE A DAY FOR PROSTATE. TAKE AT THE SAME TIME EACH DAY WITH FOOD. 90 Sep 30 1 [id number] Dec 20, 2019 KJ POTTER [facility] [place] TAMSULOSIN HCL 0.4MG CAP Discontinued TAKE 1 CAPSULE BY MOUTH ONCE A DAY FOR PROSTATE. TAKE AT THE SAME TIME EACH DAY WITH FOOD. 90 Sep 12 0 [id number] Jun 24, 2019 LIS BRUCE [facility] [place] Problems (Conditions): All historical [...] ent(s) Provider Source Abnormal radiologic density Active [id number] KJ HWANG [facility] [place] Allergic rhinitis Active 53083096 LADY SALAZAR [facility] [place] Anemia Active 014511774 [facility] [place] [facility] Chest pain (SNOMED CT 70896171) Active 786.50 KJ POTTER [facility] [place] Chondrocalcinosis Active 929533712 JASONYOU [facility] [place] [facility] Chronic obstructive lung disease Active 16872487 [facility] [place] [facility] Coronary artery disease Active 63101616 Angella LINDSEY Toshia [facility] [place] Cough Active 15399027 LADY SALAZAR GLENNIE Angella Love [facility] [place] Cough (SNOMED CT 41563394) Active 786.2 MIGUEL A SHELDONKJ Ortega [facility] [place] Dysarthria (SNOMED CT 9264212) Active 784.51 M CORRINEJESSEKJ Ortega [facility] [place] Dyspnea (SNOMED CT 674849339) Active 786.09 KJ BARKSDALE [facility] [place] Eruption due to drug Active 94729680 Abdiaziz POTTER [facility] [place] Gastroesophageal reflux disease Active 082149066 KJ POTTER [facility] [place] Hallux valgus AND bunion Active 643514847 DEISY GERMAIN Royce [facility] [place] [facility] Joint pain (SNOMED CT 07635421) Active 719.40 DEISY CONTRERAS [facility] [place] Joint swelling (SNOMED CT 981248953) Active 719.00 KJ POTTER [facility] [place] [facility] Knee pain Active 90372245 JENNIFER LINDSEY [facility] [place] Muscle weakness (SNOMED CT 43359184) Active 728.87 KJ POTTER [facility] [place] Neuropathy Active 098644812 KJ POTTER RN [facility] [place] Osteoarthritis Active 715.36 DYAN SERVIN [facility] [place] Parkinson's disease Active 14110396 TARIQETHAN [facility] [place] [facility] Peripheral Neuropathy Active 356.9 DASARAJU,P URUSHOTHAMA V [facility] [place] [facility] Personal History of Exposure to Agent Blair Active V15.89 DEISY CONTRERAS [facility] [place] [facility] Polyp of colon (SNOMED CT 25845020) Active 211.3 TARIQKJ SMITH [facility] [place] Restless legs Active 45986382 PATRICK WHITE [facility] [place] Rheumatoid arthritis Active 96538100 Abdiaziz POTTER [facility] [place] [facility] Screening, Malignancy Active V76.89 LISSETH TOLEDO [facility] [place] [facility] Sleep apnea Active 41013032 KJ POTTER RN [facility] [place] Synovial cyst of popliteal space (SNOMED CT 23084356) Active 727.51 KJ POTTER [facility] [place] [facility] Tobacco dependence in remission Active 821324210 JK POTTER [facility] [place] Tobacco use Active 454741205 JENNIFER LINDSEY [facility] [place] Tremor Active 05746072 JENNIFER LINDSEY K S [facility] [place] Unresolved Active 26548702 JENNIFER LINDSEY [facility] [place] Unresolved Active 01916522 JENNIFER LINDSEY [facility] [place] Radiology Reports: +/- 30 days of the encounter No Data Provided for This Section Pathology Reports: +/- 30 days of the encounter No Data Provided for This Section Encounter Notes: All associated encounter notes This section contains the clinical notes associated to the Encounter. Date/Time Encounter Note(s) Provider Source Jan 08, 2019 03:21 PM CARE MANAGEMENT NOTE: LOCAL TITLE: EK-PACT CARE MANAGEMENT STANDARD TITLE: CARE MANAGEMENT NOTE DATE OF NOTE: JAN 08, 2019@15:21 ENTRY DATE: JAN 08, 2019@15:21:11 AUTHOR: JULIO LANG COSIGNER: URGENCY: STATUS: COMPLETED EK-PACT CARE MANAGEMENT Has ADDENDA 11/02/18 oxycodone 5/325 #28, 7 days Alexys Lind MD, [place], [place] filled at [facility] plan: 1 please contact vet to discuss findings on State Drug Monitoring. Who is provider? Where seen? Review [facility] policy w/ controlled subs and other prescribers. Request office/visit records. Review that [facility] are to fax [facility] to [facility]. PC to vet to discuss the above provider information. Vet states he had a knee injury and went to [facility] [place] ER with negative findings. He states his knee is fine now. He states he was not aware of this policy and v/u of information discussed. ANA PAULA faxed to [facility] [place] for ER record. /edil LANG RN Signed: 01/08/2019 15:23 Receipt Acknowledged By: 01/09/2019 09:47 /edil BAIG 01/09/2019 ADDENDUM STATUS: COMPLETED 11-02-18 ER record received from [facility]. Summary below with complete report to provider for viewing. 67 yo presents after he sustained an inj ury to his previously injured right knee when he fell up steps 2 days ago. Progress note: Xray demonstrated degenerative changes as will as a significant effusion of the right knee. Ivyetn received 50 mg fentanyl with significant improvement in his pain. Patient was instructed to use walker for partial weightbearing. He was asked to employ percocet for pain. He was asked problems with orthopedic surgeon by calling the office on Sunday for further evaluation as soon as possible. Possibility that he will require an MRI for further evaluation was discussed. Discharge instructions: Medication prescripbed. F/U with your orthopedic surgeon as soons as possible. Walker for limited weightbearing. /edil LANG RN Signed: 01/09/2019 08:58 Receipt Acknowledged By: 01/09/2019 09:44 /[facility]
--- OUTSIDE RECORDS SUMMARY | 2019-12-04 22:05 | XMS REPORT | Encounter Summary ---
Author Author Department [facility] CARLOS sweeney Organization Department of [facility] Address [address] [place] [address] Phone Unavailable Care Team Providers Care Dominatrix Name Role Phone TARIQ KJ PCP Unavailable [...] PLAN G MEDICARE SUPPLEMENT Dec PLAN G [id number] [phone] CARLOS ROMANO PATIENT MEDICARE (WNR) MEDICARE (M) PART A Dec 16, 2014 PART A [id number] ROSALINACARLOS PATIENT MEDICARE (WNR) MEDICARE (M) PART B Dec 16, 2014 PART B [id number] [phone] CARLOS ROMANO PATIENT MEDICO DENTAL INSURANCE DENTAL VISIONHEARING Dec 16, 2014 DENTAL VISIONHEAR [id number] [phone] CARLOS ROMANO PATIENT Selected Encounter This section includes the information on record at [place] for the Encounter. Date/Time Encounter Type Encounter Description Reason Provider Source Feb 03, 2019 07:23 AM Outpatient Encounter COMMUNITY CARE CONSULT [facility], VIS[facility] 15 IHE Encounter Template [...] appointme nts. The data comes from all [place] treatment facilities. Appointment Date/Time Appointment Type Appointment Facili ty Name Apr 02, 2019 09:45 AM AMBULATORY - MEDICINE [facility] [place] Apr 09, 2019 01:30 PM AMBULATORY - MEDICINE [place] Chet [facility] Apr 24, 2019 09:30 AM AMBULATORY - MEDICINE [facility] [place] May 29, 2019 09:00 AM [facility] - [facility]ONE [facility] [place] Aug 06, 2019 01:00 PM AMBULATORY - MEDICINE [facility] Chet [facility] Surgical Procedures: All associated to the encounter [...] to adverse reactions to drug (disorder) Eruption [facility] 15 [place] Jul 17, 2012 Propensity to adverse reactions to drug (disorder) Peripheral edema [facility] 15 Medications: [facility] dispensed [...] may be a prescription from either the [place] or other providers that was filled outside [...] FOR INHALATION ONCE 1 Nov 16, 2018 [id number] October 17, 2018 KJ POTTER [facility] ALBUTEROL SO4 90MCG/ACTUAT (CFC-F) INHL,ORAL,6.7GM Active INHALE 2 PUFFS BY ORAL INHALATION FOUR TIMES A DAY NEEDED - RINSE MOUTHPIECE FREQUENTLY TO PREVENT CLOGGING 1 Apr 24, 2020 [id number] October 18, [address] [facility] ALBUTEROL SO4 90MCG/ACTUAT (CFC-F) INHL,ORAL,6.7GM Discontin ued INHALE 2 PUFFS BY ORAL INHALATION FOUR TIMES A DAY NEEDED - RINSE MOUTHPIECE FREQUENTLY TO PREVENT CLOGGING 2 Apr 24, 2020 [id number] Apr 24, 2019 [facility] BUDES[facility]IDE 160MCG/FORMOTEROL FUM 4.5MCG/SPRAY INHL,ORAL,10.2 GM Active INHALE 2 PUFFS BY ORAL INHALATION TWO TIMES A DAY FOR BREATHING. SHAKE WELL. RINSE MOUTH AND SPIT AFTER EACH USE. 2 Apr 24, 2020 [id number] October 17, 2019 KJ JOSHI [facility] CALCIUM 500MG (CA CARBONATE-1.25GM) TAB Active: Susp TAKE ONE TABLET BY MOUTH TWO TIMES A DAY 180 Nov 20, 2020 [id number] Jan 09, 2020 KJ POTTER [facility] CALCIUM 500MG (CA CARBONATE-1.25GM) TAB Discontinued TAKE ONE TABLET BY MOUTH TWO TIMES A DAY 180 Jan 08, 2020 [id number] October 21, 2019 KJ POTTER [facility] [place] CALCIUM 500MG (CA CARBONATE-1.25GM) TAB Discontinued TAKE ONE TABLET BY MOUTH TWO TIMES A DAY 180 Dec 29, 2018 [id number] Oct 01, 2018 NASH KULKARNI [facility] CARBIDOPA 25MG/LEVODOPA 100MG TAB Active TAKE 2 TABLETS BY MOUTH FOUR TIMES A DAY FOR PARKINSON'S DISEASE. DO NOT TAKE WITH FOOD. 240 Nov 24, 2020 [id number] Nov 27, 2019 [facility] [place] CARBIDOPA 25MG/LEVODOPA 100MG TAB Discontinued TAKE T WO TABLETS BY MOUTH FIVE TIMES DAILY FOR PARKINSON'S DISEASE. DO NOT TAKE WITH FOOD. 600 Jul 02, 2020 [id number] Nov 19, 2019 [facility] [place] CARBIDOPA 25MG/LEVODOPA 100MG TAB Discontinued TAKE 2 TABLETS BY MOUTH FIVE TIMES DAILY FOR PARKINSON'S DISEASE. DO NOT TAKE WITH FOOD. 300 Jun 30, 2020 [id number] Jul 01, 2019 [facility] [place] [facility] CARBIDOPA 25MG/LEVODOPA 100MG TAB Discontinued TAKE 2 TABLETS BY MOUTH FOUR TIMES A DAY FOR PARKINSON'S DISEASE. DO NOT TAKE WITH FOOD. 240 Jun 24, 2020 [id number] Jun 26, 2019 [facility] [place] [facility] CARBIDOPA 25MG/LEVODOPA 100MG TAB Discontinued TAKE 2 TABLETS BY MOUTH FOUR TIMES A DAY FOR PARKINSON'S DISEASE. DO NOT TAKE WITH FOOD. 240 Dec 25, 2019 [id number] May 15, 2019 [facility] [place] CARBIDOPA 25MG/LEVODOPA 100MG TAB Discontinued TAKE 2 TABLETS BY MOUTH FOUR TIMES A DAY FOR PARKINSON'S DISEASE. DO NOT TAKE WITH FOOD. 240 Jun 07, 2019 [id number] Nov 18, 2018 [facility]GRA HOWE [facility] [place] CHOLECALCIFEROL 25MCG (1,000UNIT) TAB Active: Susp TA KE TWO TABLETS BY MOUTH ONCE A DAY FOR VITAMIN D DEFICIENCY 200 Nov 20, 2020 [id number] Dec 172019 [facility] CHOLECALCIFEROL 25MCG (1,000UNIT) TAB Discontinued TA KE TWO TABLETS BY MOUTH ONCE A DAY FOR VITAMIN D DEFICIENCY 200 Dec 25, 2019 [id number] October [facility] [place] CHOLECALCIFEROL 25MCG (1,000UNIT) TAB Discontinued TA KE TWO TABLETS BY MOUTH ONCE A DAY FOR VITAMIN D DEFICIENCY 200 Oct 10, 2018 [id number] Aug 172018 [facility] CLOPIDOGREL BISULFATE 75MG TAB Active: Susp TAKE ONE TABLET BY MOUTH ONCE A DAY TO PREVENT BLOOD CLOTS 90 Apr 24, 2020 [id number] Dec 19, 2019 [facility] CLOPIDOGREL BISULFATE 75MG TAB Discontinued TAKE ONE TABLET BY MOUTH ONCE A DAY TO PREVENT BLOOD CLOTS 90 Jun 01, 2019 [id number] Mar 13, 2019 [facility] [place] DIPHENHYDRAMINE HCL 25MG CAP Non-VA TAKE 1 CAPSULE BY MOUTH EVERY 6 HOURS NEEDED Non-VA Documented by: KJ POTTER nted at: [facility] FLUDROCORTISONE ACETATE 0.1MG TAB Active TAKE ONE TABLET BY M OUTH ONCE A DAY 90 Nov 19, 2020 [id number] Nov 20, 2019 [facility] [place] FOLIC ACID 1MG TAB Non- VA TAKE ONE TABLET BY MOUTH ONCE A DAY N on-VA Documented by: KJ POTTER nted at: [facility] GABAPENTIN 300MG CAP Active TAKE 1 CAPSULE BY M OUTH 5 TIMES A DAY FOR PAIN AND TREMORS. 300 October 17, 2020 [id number] October 18, 2019 [facility] GABAPENTIN 300MG CAP Discontinued TAKE ONE CAPSULE BY MOUTH FOUR TIMES A DAY FOR PAIN AND TREMORS. 240 Jan 08, 2020 [id number] Oct 14, 2019 [facility] GABAPENT[facility] 300MG CAP Discontinued TAKE ONE CAPSULE BY MOUTH FOUR TIMES A DAY FOR PAIN AND TREMORS. 240 Mar 08, 2019 [id number] Jan 07, 2019 [facility] [place] HYDROCODONE 10MG/ACETAMINOPHEN 325MG TAB Active TAKE ONE TABLET (10/325MG) BY MOUTH THREE TIMES A DAY NEEDED FOR PAIN CAUTION: DO NOT EXCEED 4000MG/DAY TOTAL OF ACETAMINOPHEN (APAP) FROM ALL MEDS 90 Dec 20, 2019 [id number] Nov 21, 2019 [facility] HYDROCODONE 10MG/ACETAMINOPHEN 325MG TAB Discontinued TAKE ONE TABLET (10/325MG) BY MOUTH THREE TIMES A DAY NEEDED FOR PAIN CAUTION: DO NOT EXCEED 4000MG/DAY TOTAL OF ACETAMINOPHEN (APAP) FROM ALL MEDS 90 Sep 17, 020 [id number] Sep 04, 2019 [facility] [place] HYDROCODONE 10MG/ACETAMINOPHEN 325MG TAB Discontinued TAKE ONE TABLET BY MOUTH THREE TIMES A DAY NEEDED FOR PAIN CAUTION: DO NOT EXCEED 4000MG/DAY TOTAL OF ACETAMINOPHEN (APAP) FROM ALL MEDS 90 Jul 26, 2019 [id number] Jun 26, 2019 [facility] [place] HYDROCODONE 10MG/ACETAMINOPHEN 325MG TAB Discontinued TAKE ONE TABLET BY MOUTH THREE TIMES A DAY NEEDED FOR PAIN CAUTION: DO NOT EXCEED 4000MG/DAY TOTAL OF ACETAMINOPHEN (APAP) FROM ALL MEDS 90 Jun 27, 2019 [id number] May 29, 2019 [facility] [place] HYDROCODONE 10MG/ACETAMINOPHEN 325MG TAB Discontinued TAKE ONE TABLET BY MOUTH THREE TIMES A DAY NEEDED FOR PAIN CAUTION: DO NOT EXCEED 4000MG/DAY TOTAL OF ACETAMINOPHEN (APAP) FROM ALL MEDS 90 May 08, 2019 [id number] Apr 08, 2019 [facility] [place] HYDROCODONE 10MG/ACETAMINOPHEN 325MG TAB Discontinued TAKE ONE TABLET BY MOUTH THREE TIMES A DAY NEEDED FOR PAIN CAUTION: DO NOT EXCEED 4000MG/DAY TOTAL OF ACETAMINOPHEN (APAP) FROM ALL MEDS 90 Mar 28, 2019 [id number] Feb 26, 2019 [facility] [place] HYDROCODONE 10MG/ACETAMINOPHEN 325MG TAB Discontinued TAKE ONE TABLET BY MOUTH THREE TIMES A DAY NEEDED FOR PAIN CAUTION: DO NOT EXCEED 4000MG/DAY TOTAL OF ACETAMINOPHEN (APAP) FROM ALL MEDS 90 Feb 06, 2019 [id number] Jan 07, 2019 [facility] [place] HYDROCODONE 10MG/ACETAMINOPHEN 325MG TAB Discontinued TAKE ONE TABLET BY MOUTH THREE TIMES A DAY NEEDED FOR PAIN CAUTION: DO NOT EXCEED 4000MG/DAY TOTAL OF ACETAMINOPHEN (APAP) FROM ALL MEDS 90 Dec 05, 2018 [id number] November 05, 2018 [facility] [place] HYDROCODONE 10MG/ACETAMINOPHEN 325MG TAB Discontinued TAKE ONE TABLET BY MOUTH THREE TIMES A DAY NEEDED FOR PAIN CAUTION: DO NOT EXCEED 4000MG/DAY TOTAL OF ACETAMINOPHEN (APAP) FROM ALL MEDS 90 October 25, 2018 [id number] Sep 25, 2018 [facility] [place] HYDROCODONE 10MG/ACETAMINOPHEN 325MG TAB TAKE ONE TABLET (10/325MG) BY MOUTH THREE TIMES A DAY NEEDED FOR PAIN CAUTION: DO NOT EXCEED 4000MG/DAY TOTAL OF ACETAMINOPHEN (APAP) FROM ALL MEDS 90 November 16, 2019 [id number] October 18, 2019 [facility] METHOTREXATE NA 2.5MG TAB Active TAKE SEVEN TABLETS BY MOUTH EVERY WEEK 90 October 17, 2020 [id number] November 04, 2019 [facility] METHOTREXATE NA 2.5MG TAB Discontinued TAKE SEVEN TABLETS BY MOUTH EVERY WEEK 90 May 09, 2020 [id number] Aug 16, 2019 NASH KULKARNI [facility] METHOTREXATE NA 2.5MG TAB Discontinued TAKE SEVEN TABLETS BY MOUTH EVERY WEEK 90 Aug 04, 2019 [id number] Feb 22, 2019 YOU GOMEZ [facility] [place] NORTRIPTYLINE HCL 10MG CAP Active TAKE 2 CAPSULES BY MO UTH AT BEDTIME NEEDED 120 Apr 02, 2020 [id number] Nov 20, 2019 [facility] [place] NORTRIPTYLINE HCL 10MG CAP Discontinued TAKE 2 CAPSUL ES BY MOUTH AT BEDTIME NEEDED 120 Mar 20, 2019 [id number] Jan 23, 2019 [facility] OMEPRAZOLE 20MG CAP,EC Active TAKE 1 CAPSULE BY MOUTH EVERY MORNING TO LOWER STOMACH ACID. TAKE 30 MINUTES PRIOR TO FOOD. 90 October 17, 2020 [id number] October 21, 2019 [facility] OMEPRAZOLE 20MG CAP,EC Discontinued TAKE 1 CAPSULE BY MOUTH EVERY MORNING TO LOWER STOMACH ACID. TAKE 30 MINUTES PRIOR TO FOOD. 90 Oct 02, 2019 [id number] Aug 02, 2019 [facility] [place] PREDNISONE 1MG TAB Discontinued TAKE THREE TABLETS B Y MOUTH ONCE A DAY FOR INFLAMMATION AND IMMUNE RESPONSE. TAKE WITH FOOD OR MILK. 270 Fe b 2019 [id number] Apr 24, 2019 [facility] PREDNISONE 1MG TAB Discontinued TAKE FOUR TABLETS BY MOUTH ONCE A D AY 360 Apr 22, 2019 [id number] Jan 24, 2019 [facility] [place] PREDNISONE 1MG TAB Discontinued TAKE FOUR TABLETS BY MOUTH ONCE A D AY 360 Dec 29, 2018 [id number] Oct 01, 2018 [facility]ULKARNI [facility] PREDNISONE 1MG TAB TAKE THREE TABLETS B Y MOUTH ONCE A DAY FOR INFLAMMATION AND IMMUNE RESPONSE. TAKE WITH FOOD OR MILK. 270 Ap r 2019 [id number] Jul 13, 2019 [facility] [place] PREDNISONE 5MG TAB Discontinued TAKE ONE TABLET BY MOUTH ONCE A DAY WITH FOOD 60 Aug 01, 2019 [id number] Sep 25, 2018 [facility] [place] ROPINIROLE HCL 1MG TAB Active TAKE ONE TABLET BY MOUTH AT BED TIME 90 October 17, 2020 [id number] Nov 25, 2019 [facility] ROPINIROLE HCL 1MG TAB Discontinued TAKE ONE TABLET BY MOUTH AT BED TIME 90 Dec 05, 2019 [id number] Sep 03, 2019 KRYSTAL DEJESUS [facility] [place] ROPINIROLE HCL 1MG TAB Discontinued TAKE ONE TABLET BY MOUTH AT BED TIME 90 Dec 13, 2018 [id number] Sep 12, 2018 [facility] [place] TAMSULOSIN HCL 0.4MG CAP Active: Susp TAKE 1 CAPSULE BY MOUTH ONCE A DAY FOR PROSTATE. TAKE AT THE SAME TIME EACH DAY WITH FOOD. 90 Sep 30 1 [id number] Dec 20, 2019 KJ POTTER [facility] [place] TAMSULOSIN HCL 0.4MG CAP Discontinued TAKE 1 CAPSULE BY MOUTH ONCE A DAY FOR PROSTATE. TAKE AT THE SAME TIME EACH DAY WITH FOOD. 90 Sep 12 0 [id number] Jun 24, 2019 LIS BRUCE [facility] [place] [facility] Problems (Conditions): All historical [...] ent(s) Provider Source Abnormal radiologic density Active 15980363 KJ HWANG [facility] [place] [facility] Allergic rhinitis Active 68563977 LADY SALAZAR [facility] [place] [facility] Anemia Active 793952298 KJ P[facility]TER [facility] [place] [facility] Chest pain (SNOMED CT 97469665) Active 786.50 KJ POTTER [facility] [place] [facility] Chondrocalcinosis Active 411744516 JASONYOU [facility] [place] [facility] Chronic obstructive lung disease Active 82054127 [facility] [place] Coronary artery disease Active 26511423 Angella LINDSEY Toshia [facility] [place] [facility] Cough Active 40655373 LADY SALAZAR ILLIOPOLIS Angella Love [facility] [place] Cough (SNOMED CT 17781338) Active 786.2 KJ BARRON [facility] [place] Dysarthria (SNOMED CT 3234498) Active 784.51 M KJ WONG [facility] [place] [facility] Dyspnea (SNOMED CT 866931799) Active 786.09 KJ BARKSDALE [facility] [place] [facility] Eruption due to drug Active 34377902 Abdiaziz POTTER [facility] [place] [facility] Gastroesophageal reflux disease Active 370114806 KJ POTTER [facility] [place] [facility] Hallux valgus AND bunion Active 983227513 ALEXANDRO DangeloDEISY Royce [facility] [place] [facility] Joint pain (SNOMED CT 48665516) Active 719.40 DEISY CONTRERAS [facility] [place] [facility] Joint swelling (SNOMED CT 607997624) Active 719.00 TARIQKJ SMITH [facility] [place] [facility] Knee pain Active 98466449 JENNIFER LINDSEY [facility] [place] [facility] Muscle weakness (SNOMED CT 20323065) Active 728.87 KJ POTTER [facility] [place] [facility] Neuropathy Active 228975200 KJ POTTER RN [facility] [place] Osteoarthritis Active 715.36 DYAN SERVIN [facility] [place] [facility] Parkinson's disease Active 87848200 TARIQETHAN CHUNG [facility] [place] [facility] Peripheral Neuropathy Active 356.9 DASFlaquita FERRER URUSHOTHMISTI Jenna [facility] [place] [facility] Personal History of Exposure to Agent Morrison Active V15.89 DEISY CONTRERAS [facility] [place] [facility] Polyp of colon (SNOMED CT 70105513) Active 211.3 TARIQKJ SMITH [facility] [place] [facility] Restless legs Active 03879767 PATRICK WHITE [facility] [place] Rheumatoid arthritis Active 13087474 Abdiaziz POTTER [facility] [place] [facility] Screening, Malignancy Active V76.89 LISSETH TOLEDO [facility] [place] [facility] Sleep apnea Active 15484635 KJ POTTER RN [facility] [place] Synovial cyst of popliteal space (SNOMED CT 38886700) Active 727.51 KJ POTTER [facility] [place] [facility] Tobacco dependence in remission Active 727514222 KJ POTTER [facility] [place] [facility] Tobacco use Active 760314638 JENNIFER LINDSEY [facility] [place] Tremor Active 39910741 JENNIFER LINDSEY [facility] S [facility] [place] Unresolved Active 17919552 JENNIFER LINDSEY [facility] [place] Unresolved Active 15037267 JENNIFER LINDSEY [facility] [place] Radiology Reports: +/- 30 days of the encounter No Data Provided for This Section Pathology Reports: +/- 30 days of the encounter No Data Provided for This Section Encounter Notes: All associated encounter notes This section contains the clinical notes associated to the Encounter. Date/Time Encounter Note(s) Provider Source Feb 03, 2019 07:23 AM NONVA NOTE: LOCAL TITLE: COMMUNITY CARE-SCHEDULING STANDARD TITLE: NONVA NOTE DATE OF NOTE: FEB 03, 2019@07:23 ENTRY DATE: FEB 03, 2019@07:23:14 AUTHOR: ROBERT THAKKAR COSIGNER: URGENCY: STATUS: COMPLETED [facility] Centered Community Care (PC3) Program [facility] Choice Approval for Medical Care VA-Form 10-0386 Certain protected health information (PHI) may be enclosed; specifically information related to Drug Abuse, Alcoholism or Alcohol Abuse, Sickle Cell Anemia, and Human Immunodeficiency Virus (HIV). This specific PHI may NOT be re-disclosed or used by the recipient person or office for any purpose other than that for which the disclosure was made. [Ref. 38 [facility] 7332(b)(2)(H)(ii)] The information is b eing disclosed by [place] only for the treatment and care of the named patient in the health record. Accounting of disclosure must be maintained when required. Referral Urgency: Routine Indicate time frame for appointment: Clinically Indicated Date (CURRY): Jan Category of Care/Type of Specialty: NEUROLOGY Type of Specialist: NEUROLOGIST Type of Service/Procedure: Parkinsons Procedural Overview: 1. Initial outpatient evaluation and [...] on the episode of care. Must utilize [place] formulary and non-formulary approval process. Additional Information: *Please visit the [facility] Storefront [email or web address] for additional resources and requirements pertaining to the following Pharmacy prescribing requirements Durable Medical Equipment (DME), Prosthetics, and Orthotics prescribing requirements Precertification (PRCT) process requirements Request for Services (RFS) requirements Number of Visits, Frequency, and Duration: 180 DAYS or [facility] Preferred Provider Name and Contact Information: Eligibility Verification: As the authorized VA media sales representative, I hereby confirm that the is eligible for Community Care services. The 's basic eligibility was verified on Jan. Contact the Facility Community Care Office first to provide information to the VA or to reach a VA ordering provider. All contact from the contractor will be documented in the 's record by the facility [place] community Care and the VA provider will be notified for awareness. Report all Critical Findings related to this authorization to the issuing office below. All other questions regarding this authorization should be directed to: [facility] Facility: Local [place] Office of Community Care (OCC) Contact:[phone] Local [place] Office of Community Care (OCC) Medical Administrative or Equivalent: Name: Bushra Montesinos Title: [facility] Community Care Veterinary Virologist Contact Number (Normal Business Hours):[phone] AOD/Emergency Contact After Hours Number:[phone] From Station Number: [id number] Facility Name: [facility] [address] Address: [address] [place] [address] City: [place] State: [place] Zip: [address] [place] Information: Name: CARLOS ROMANO : Dec SSN: [id number] Address: [address] [place] [address] [place]'s Alternate Phone: 's Alternate Address: In accordance with 38 CFR 17.3209-6533, [place] will pay for non-VA hospital care and medical services that are authorized by [place] for Veterans who are determined by [place] to meet the Veterans Choice Program eligibility criteria set forth by section 101 of the Act and 38 CFR 17.1510 and any other eligibility standards that may apply to particular services (such as health care for newborns of Veterans under 38 CFR 17.38(a)(xiv) and dental benefits under 17.160-17.169). /sofya/ ROBERT THAKKAR [facility] Signed: 02/03/2019 07:25 ROBERT THAKKAR [facility]
--- OUTSIDE RECORDS SUMMARY | 2019-12-04 22:06 | XMS REPORT | Encounter Summary ---
Author Author [facility] CARLOS sweeney Organization Department of [facility] Address [address] [place] [id number] Phone Unavailable Care Team Providers Care Chaser Helper Name Role Phone TARIQSTELLA PCP Unavailable Insurance Providers: All historical and [...] PLAN G MEDICARE SUPPLEMENT Dec PLAN G [id number] [phone] ROSALINACARLOS PATIENT MEDICARE (WNR) MEDICARE (M) PART A Dec 16, 2014 PART A [id number] ROSALINACARLOS PATIENT MEDICARE (WNR) MEDICARE (M) PART B Dec 16, 2014 PART B [id number] CARLOS ROMANO PATIENT MEDICO DENTAL INSURANCE DENTAL VISIONHEARING Dec 16, 2014 DENTAL VISIONHEAR [id number] [phone] CARLOS ROMANO PATIENT Selected Encounter This section includes the information on record at [place] for the Encounter. Date/Time Encounter Type Encounter Description Reason Provider Source Jan 07, 2019 11:06 AM Outpatient Encounter PRIMARY CARE/MEDICINE JENNIFER LINDSEY [facility], [facility]IS[facility] 15 IHE Encounter Template Text not used by [place] Assessments - Encounter Diagnoses No Data Provided for This Section Plan of Treatment: Future Appointments (+ 6 months) and Future Tests (+/- 45 day s) The Plan of Treatment section includes future care activities for the patient fr om all [place] treatment facilities. This section includes future appointments and fu ture orders which are active, pending or scheduled. Future Appointments This section includes appointments that were scheduled t o occur 6 months from the date of the Encounter, up to a maximum of 20 appointme nts. The data comes from all [place] treatment facilities. Appointment Date/Time Appointment Type Appointment Facili ty Name Apr 02, 2019 09:45 AM AMBULATORY - MEDICINE [facility] Apr 09, 2019 01:30 PM AMBULATORY - MEDICINE [facility] [place] Apr 24, 2019 09:30 AM [facility]ORY - MEDICINE [facility] May 29, 2019 09:00 AM AMBULATORY - NONE [facility] [place] [facility] Surgical Procedures: [...] patient. The data comes from a ll [place] treatment facilities. It does not list Allergies/ADRs that were removed or entered in error. Some allergies/ADRs may be reported in t he Immunization section. Allergen Event Date Event Type Reaction(s) Severity Source PANTOPRAZOLE Oct 01, 2018 Propensity to adverse reactions to drug (disorder) Eruption [facility] 15 PENICILLIN Jul 17, 2012 Propensity to adverse reactions to drug (disorder) Peripheral edema [facility] 15 Medications: VA dispensed (-15 months) and Non-VA Documented (Obtained Outside V A) Section Date Range: 1) prescriptions processed by a [place] pharmacy in the last [facility], and 2) all medications recorded in the [place] medical record as "non-VA medic ations". Pharmacy terms refer to [place] pharmacy's work on prescriptions. VA patient s are advised to take their medications as instructed by their health care team. The data comes from all [place] treatment facilities. Glossary of Pharmacy Terms:Active = A prescription that can be filled at the local [place] pharmacy.Active: On Hold = An active prescription that will not be filled until pharmacy resolves the issue.Active: Susp = An active prescription that is not scheduled to be filled yet.Clinic Order = A medication received during a visit to a [place] clinic or emergency department (currently not available).Discontinued [...] may be a prescription from either the [place] or other providers that was filled outside the [place]. Or, it may be an over the [...] FOR INHALATION ONCE 1 Nov 16, 2018 [id number] October 17, 2018 STELLA POTTER [facility] ALBUTEROL SO4 90MCG/ACTUAT (CFC-F) INHL,ORAL,6.7GM Active INHALE 2 PUFFS BY ORAL INHALATION FOUR TIMES A DAY NEEDED - RINSE MOUTHPIECE FREQUENTLY TO PREVENT CLOGGING 1 Apr 24, 2020 [id number] October 18, 2019 STELLA POTTER [facility] ALBUTEROL SO4 90MCG/ACTUAT (CFC-F) INHL,ORAL,6.7GM Discontin ued INHALE 2 PUFFS BY ORAL INHALATION FOUR TIMES A DAY NEEDED - RINSE MOUTHPIECE FREQUENTLY TO PREVENT CLOGGING 2 Apr 24, 2020 [id number] Apr 24, 2019 STELLA [facility] BUDESONIDE 160MCG/FORMOTEROL FUM 4.5MCG/SPRAY INHL,ORAL,10.2 GM Active INHALE 2 PUFFS BY ORAL INHALATION TWO TIMES A DAY FOR BREATHING. SHAKE WELL. RINSE MOUTH AND SPIT AFTER EACH USE. 2 Apr 24, 2020 [id number] October 17, 2019 STELLA JOSHI [facility] CALCIUM 500MG (CA CARBONATE-1.25GM) TAB Active: Susp TAKE ONE TABLET BY MOUTH TWO TIMES A DAY 180 Nov 20, 2020 [id number] Jan 09, 2020 STELLA POTTER [facility] CALCIUM 500MG (CA CARBONATE-1.25GM) TAB Discontinued TAKE ONE TABLET BY MOUTH TWO TIMES A DAY 180 Jan 08, 2020 [id number] October 21, 2019 STELLA POTTER [facility] [place] CALCIUM 500MG (CA CARBONATE-1.25GM) TAB Discontinued TAKE ONE TABLET BY MOUTH TWO TIMES A DAY 180 Dec 29, 2018 [id number] Oct 01, 2018 [facility] CARBIDOPA 25MG/LEVODOPA 100MG TAB Active TAKE 2 TABLETS BY MOUTH FOUR TIMES A DAY FOR PARKINSON'S DISEASE. DO NOT TAKE WITH FOOD. 240 Nov 24, 2020 [id number] Nov 27, 2019 [facility] [place] CARBIDOPA 25MG/LEVODOPA 100MG TAB Discontinued TAKE T WO TABLETS BY MOUTH FIVE TIMES DAILY FOR PARKINSON'S DISEASE. DO NOT TAKE WITH FOOD. 600 Jul 02, 2020 [id number] Nov 19, 2019 [facility] [place] [facility] CARBIDOPA 25MG/LEVODOPA 100MG TAB Discontinued TAKE 2 TABLETS BY MOUTH FIVE TIMES DAILY FOR PARKINSON'S DISEASE. DO NOT TAKE WITH FOOD. 300 Jun 30, 2020 [id number] Jul 01, 2019 [facility] [place] CARBIDOPA 25MG/LEVODOPA 100MG TAB Discontinued TAKE 2 TABLETS BY MOUTH FOUR TIMES A DAY FOR PARKINSON'S DISEASE. DO NOT TAKE WITH FOOD. 240 Jun 24, 2020 [id number] Jun 26, 2019 [facility] [place] [facility] CARBIDOPA 25MG/LEVODOPA 100MG TAB Discontinued TAKE 2 TABLETS BY MOUTH FOUR TIMES A DAY FOR PARKINSON'S DISEASE. DO NOT TAKE WITH FOOD. 240 Dec 25, 2019 [id number] May 15, 2019 [facility] [place] [facility] CARBIDOPA 25MG/LEVODOPA 100MG TAB Discontinued TAKE 2 TABLETS BY MOUTH FOUR TIMES A DAY FOR PARKINSON'S DISEASE. DO NOT TAKE WITH FOOD. 240 Jun 07, 2019 [id number] Nov 18, 2018 ALLEGRA HOWE [facility] [place] CHOLECALCIFEROL 25MCG (1,000UNIT) TAB Active: Susp TA KE TWO TABLETS BY MOUTH ONCE A DAY FOR VITAMIN D DEFICIENCY 200 Nov 20, 2020 [id number] Dec 172019 [facility] CHOLECALCIFEROL 25MCG (1,000UNIT) TAB Discontinued TA KE TWO TABLETS BY MOUTH ONCE A DAY FOR VITAMIN D DEFICIENCY 200 Dec 25, 2019 [id number] October [facility] [place] CHOLECALCIFEROL 25MCG (1,000UNIT) TAB Discontinued TA KE TWO TABLETS BY MOUTH ONCE A DAY FOR VITAMIN D DEFICIENCY 200 Oct 10, 2018 [id number] Aug 172018 [facility] CLOPIDOGREL BISULFATE 75MG TAB Active: Susp TAKE ONE TABLET BY MOUTH ONCE A DAY TO PREVENT BLOOD CLOTS 90 Apr 24, 2020 [id number] Dec 19, 2019 [facility] CLOPIDOGREL BISULFATE 75MG TAB Discontinued TAKE ONE TABLET BY MOUTH ONCE A DAY TO PREVENT BLOOD CLOTS 90 Jun 01, 2019 [id number] Mar 13, 2019 [facility] [place] DIPHENHYDRAMINE HCL 25MG CAP Non-VA TAKE 1 CAPSULE BY MOUTH EVERY 6 HOURS NEEDED Non-VA Documented by: STELLA POTTER nted at: [facility] FLUDROCORTISONE ACETATE 0.1MG TAB Active TAKE ONE TABLET BY M OUTH ONCE A DAY 90 Nov 19, 2020 [id number] Nov 20, 2019 [facility] [place] FOLIC ACID 1MG TAB Non- VA TAKE ONE TABLET BY MOUTH ONCE A DAY N on-VA Documented by: STELLA POTTER nted at: [facility] GABAPENTIN 300MG CAP Active TAKE 1 CAPSULE BY M OUTH 5 TIMES A DAY FOR PAIN AND TREMORS. 300 October 17, 2020 [id number] October 18, 2019 [facility] GABAPENTIN 300MG CAP Discontinued TAKE ONE CAPSULE BY MOUTH FOUR TIMES A DAY FOR PAIN AND TREMORS. 240 Jan 08, 2020 [id number] Oct 14, 2019 [facility] [place] GABAPENTIN 300MG CAP Discontinued TAKE ONE CAPSULE BY MOUTH FOUR TIMES A DAY FOR PAIN AND TREMORS. 240 Mar 08, 2019 [id number] Jan 07, 2019 [facility] [place] [facility] HYDROCODONE 10MG/ACETAMINOPHEN 325MG TAB Active TAKE ONE TABLET (10/325MG) BY MOUTH THREE TIMES A DAY NEEDED FOR PAIN CAUTION: DO NOT EXCEED 4000MG/DAY TOTAL OF ACETAMINOPHEN (APAP) FROM ALL MEDS 90 Dec 20, 2019 [id number] Nov 21, 2019 STELLA POTTER [facility] HYDROCODONE 10MG/ACETAMINOPHEN 325MG TAB Discontinued TAKE ONE TABLET (10/325MG) BY MOUTH THREE TIMES A DAY NEEDED FOR PAIN CAUTION: DO NOT EXCEED 4000MG/DAY TOTAL OF ACETAMINOPHEN (APAP) FROM ALL MEDS 90 Sep 17, 020 [id number] Sep 04, 2019 [facility] [place] [facility] HYDROCODONE 10MG/ACETAMINOPHEN 325MG TAB Discontinued TAKE ONE TABLET BY MOUTH THREE TIMES A DAY NEEDED FOR PAIN CAUTION: DO NOT EXCEED 4000MG/DAY TOTAL OF ACETAMINOPHEN (APAP) FROM ALL MEDS 90 Jul 26, 2019 [id number] Jun 26, 2019 [facility] [place] [facility] HYDROCODONE 10MG/ACETAMINOPHEN 325MG TAB Discontinued TAKE ONE TABLET BY MOUTH THREE TIMES A DAY NEEDED FOR PAIN CAUTION: DO NOT EXCEED 4000MG/DAY TOTAL OF ACETAMINOPHEN (APAP) FROM ALL MEDS 90 Jun 27, 2019 [id number] May 29, 2019 [facility] [place] HYDROCODONE 10MG/ACETAMINOPHEN 325MG TAB Discontinued TAKE ONE TABLET BY MOUTH THREE TIMES A DAY NEEDED FOR PAIN CAUTION: DO NOT EXCEED 4000MG/DAY TOTAL OF ACETAMINOPHEN (APAP) FROM ALL MEDS 90 May 08, 2019 [id number] Apr 08, 2019 [facility] [place] [facility] HYDROCODONE 10MG/ACETAMINOPHEN 325MG TAB Discontinued TAKE ONE TABLET BY MOUTH THREE TIMES A DAY NEEDED FOR PAIN CAUTION: DO NOT EXCEED 4000MG/DAY TOTAL OF ACETAMINOPHEN (APAP) FROM ALL MEDS 90 Mar 28, 2019 [id number] Feb 26, 2019 [facility] [place] [facility] HYDROCODONE 10MG/ACETAMINOPHEN 325MG TAB Discontinued TAKE ONE TABLET BY MOUTH THREE TIMES A DAY NEEDED FOR PAIN CAUTION: DO NOT EXCEED 4000MG/DAY TOTAL OF ACETAMINOPHEN (APAP) FROM ALL MEDS 90 Feb 06, 2019 [id number] Jan 07, 2019 [facility] [place] HYDROCODONE 10MG/ACETAMINOPHEN 325MG TAB Discontinued TAKE ONE TABLET BY MOUTH THREE TIMES A DAY NEEDED FOR PAIN CAUTION: DO NOT EXCEED 4000MG/DAY TOTAL OF ACETAMINOPHEN (APAP) FROM ALL MEDS 90 Dec 05, 2018 [id number] November 05, 2018 [facility] [place] HYDROCODONE 10MG/ACETAMINOPHEN 325MG TAB Discontinued TAKE ONE TABLET BY MOUTH THREE TIMES A DAY NEEDED FOR PAIN CAUTION: DO NOT EXCEED 4000MG/DAY TOTAL OF ACETAMINOPHEN (APAP) FROM ALL MEDS 90 October 25, 2018 [id number] Sep 25, 2018 [facility] [place] HYDROCODONE 10MG/ACETAMINOPHEN 325MG TAB TAKE ONE TABLET (10/325MG) BY MOUTH THREE TIMES A DAY NEEDED FOR PAIN CAUTION: DO NOT EXCEED 4000MG/DAY TOTAL OF ACETAMINOPHEN (APAP) FROM ALL MEDS 90 November 16, 2019 [id number] October 18, 2019 [facility] METHOTREXATE NA 2.5MG TAB Active TAKE SEVEN TABLETS BY MOUTH EVERY WEEK 90 October 17, 2020 [id number] November 04, 2019 [facility] METHOTREXATE NA 2.5MG TAB Discontinued TAKE SEVEN TABLETS BY MOUTH EVERY WEEK 90 May 09, 2020 [id number] Aug 16, 2019 NASH KULKARNI [facility] METHOTREXATE NA 2.5MG TAB Discontinued TAKE SEVEN TABLETS BY MOUTH EVERY WEEK 90 Aug 04, 2019 [id number] Feb 22, 2019 YOU GOMEZ [facility] [place] NORTRIPTYLINE HCL 10MG CAP Active TAKE 2 CAPSULES BY MO UTH AT BEDTIME NEEDED 120 Apr 02, 2020 [id number] Nov 20, 2019 [facility] [place] NORTRIPTYLINE HCL 10MG CAP Discontinued TAKE 2 CAPSUL ES BY MOUTH AT BEDTIME NEEDED 120 Mar 20, 2019 [id number] Jan 23, 2019 [facility] OMEPRAZOLE 20MG CAP,EC Active TAKE 1 CAPSULE BY MOUTH EVERY MORNING TO LOWER STOMACH ACID. TAKE 30 MINUTES PRIOR TO FOOD. 90 October 17, 2020 [id number] October 21, 2019 [facility] OMEPRAZOLE 20MG CAP,EC Discontinued TAKE 1 CAPSULE BY MOUTH EVERY MORNING TO LOWER STOMACH ACID. TAKE 30 MINUTES PRIOR TO FOOD. 90 Oct 02, 2019 [id number] Aug 02, 2019 [facility] [place] PREDNISONE 1MG TAB Discontinued TAKE THREE TABLETS B Y MOUTH ONCE A DAY FOR INFLAMMATION AND IMMUNE RESPONSE. TAKE WITH FOOD OR MILK. 270 Fe 2019 [id number] Apr 24, 2019 [facility] PREDNISONE 1MG TAB Discontinued TAKE FOUR TABLETS BY MOUTH ONCE A D AY 360 Apr 22, 2019 [id number] Jan 24, 2019 [facility] [place] PREDNISONE 1MG TAB Discontinued TAKE FOUR TABLETS BY MOUTH ONCE A D AY 360 Dec 29, 2018 [id number] Oct 01, 2018 NASH KULKARNI [facility] [place] PREDNISONE 1MG TAB TAKE THREE TABLETS B Y MOUTH ONCE A DAY FOR INFLAMMATION AND IMMUNE RESPONSE. TAKE WITH FOOD OR MILK. 270 Ap r 2019 [id number] Jul 13, 2019 [facility] [place] PREDNISONE 5MG TAB Discontinued TAKE ONE TABLET BY MOUTH ONCE A DAY WITH FOOD 60 Aug 01, 2019 [id number] Sep 25, 2018 [facility] [place] ROPINIROLE HCL 1MG TAB Active TAKE ONE TABLET BY MOUTH AT BED TIME 90 October 17, 2020 [id number] Nov 25, 2019 [facility] ROPINIROLE HCL 1MG TAB Discontinued TAKE ONE TABLET BY MOUTH AT BED TIME 90 Dec 05, 2019 [id number] Sep 03, 2019 DEJESUSKRYSTAL Freed [facility] [place] [facility] ROPINIROLE HCL 1MG TAB Discontinued TAKE ONE TABLET BY MOUTH AT BED TIME 90 Dec 13, 2018 [id number] Sep 12, 2018 [facility] [place] [facility] TAMSULOSIN HCL 0.4MG CAP Active: Susp TAKE 1 CAPSULE BY MOUTH ONCE A DAY FOR PROSTATE. TAKE AT THE SAME TIME EACH DAY WITH FOOD. 90 Sep 30 1 [id number] Dec 20, 2019 [facility] [place] [facility] TAMSULOSIN HCL 0.4MG CAP Discontinued TAKE 1 CAPSULE BY MOUTH ONCE A DAY FOR PROSTATE. TAKE AT THE SAME TIME EACH DAY WITH FOOD. 90 Sep 12 0 [id number] Jun 24, 2019 LIS BRUCE [facility] [place] [facility] Problems (Conditions): All historical and current Section Date Range: From patient's date of to the date document was create d. This section includes a list of Problems (Conditions) know n to [place] for the patient. It includes both active and inacti ve problems (conditions). The data comes from all [place] treatment facilities. Problem Status Problem Code Date of Onset Date of Resolution Comm ent(s) Provider Source Abnormal radiologic density Active [id number] STELLA HWANG [facility] [place] [facility] Allergic rhinitis Active 32674346 LADY SALAZAR [facility] [place] [facility] Anemia Active [id number] [facility] [place] [facility] Chest pain (SNOMED CT 19602088) Active 786.50 STELLA POTTER [facility] [place] [facility] Chondrocalcinosis Active 743724571 JASONYOU [facility] [place] [facility] Chronic obstructive lung disease Active 72361524 [facility] [place] [facility] Coronary artery disease Active 40345576 Angella LINDSEY Toshia [facility] [place] [facility] Cough Active 03752801 LADY SALAZAR S [facility] [place] Cough (SNOMED CT 68507741) Active 786.2 STELLA BARRON [facility] [place] [facility] Dysarthria (SNOMED CT 2372174) Active 784.51 M STELLA WONG [facility] [place] [facility] Dyspnea (SNOMED CT 809784269) Active 786.09 STELLA BARKSDALE [facility] [place] [facility] Eruption due to drug Active 08723428 Abdiaziz POTTER [facility] [place] [facility] Gastroesophageal reflux disease Active 919141771 STELLA POTTER [facility] [place] [facility] Hallux valgus AND bunion Active 137740974 DEISY GERMAIN Royce [facility] [place] [facility] Joint pain (SNOMED CT 11508050) Active 719.40 DEISY CONTRERAS [facility] [place] Joint swelling (SNOMED CT 835465824) Active 719.00 STELLA POTTER [facility] [place] [facility] Knee pain Active 17412038 JENNIFER LINDSEY [facility] [place] [facility] Muscle weakness (SNOMED CT 10519870) Active 728.87 STELLA POTTER [facility] [place] [facility] Neuropathy Active 827354818 STELLA POTTER RN [facility] [place] Osteoarthritis Active 715.36 DYAN SERVIN [facility] [place] [facility] Parkinson's disease Active 52708328 TARIQETHAN CHUNG [facility] [place] [facility] Peripheral Neuropathy Active 356.9 DASARAJU,P URUSHOTHAMA V [facility] [place] [facility] Personal History of Exposure to Agent Will Active V15.89 ANDRÉS CONTRERASAL Royce [facility] [place] [facility] Polyp of colon (SNOMED CT 10830852) Active 211.3 STELLA POTTER [facility] [place] [facility] Restless legs Active 68098341 PATRICK WHITE [facility] [place] Rheumatoid arthritis Active 49944854 Abdiaziz POTTER [facility] [place] [facility] Screening, Malignancy Active V76.89 LISSETH TOLEDO [facility] [place] [facility] Sleep apnea Active 69240914 STELLA POTTER RN [facility] [place] Synovial cyst of popliteal space (SNOMED CT 39812745) Active 727.51 STELLA POTTER [facility] [place] [facility] Tobacco dependence in remission Active 434803023 STELLA POTTER [facility] [place] [facility] Tobacco use Active 942127860 JENNIFER LINDSEY [facility] [place] Tremor Active 76927709 JENNIFER LINDSEY K S [facility] [place] Unresolved Active 34158507 JENNIFER LINDSEY [facility] [place] Unresolved Active 99114958 JENNIFER LINDSEY [facility] [place] Radiology Reports: +/- 30 days of the encounter No Data Provided for This Section Pathology Reports: +/- 30 days of the encounter No Data Provided for This Section Encounter Notes: All associated encounter notes This section contains the clinical notes associated to the Encounter. Date/Time Encounter Note(s) Provider Source Jan 07, 2019 11:06 AM PRIMARY CARE SECURE MESSAGIN G: LOCAL TITLE: EK-PRIMARY CARE SECURE MESSAGING STANDARD TITLE: PRIMARY CARE SECURE MESSAGING DATE OF NOTE: JAN 07, 2019@11:06:41 ENTRY DATE: JAN 07, 2019@11:06:41 AUTHOR: JENNIFER LINDSEY EXP COSIGNER: URGENCY: STATUS: COMPLETED EK-PRIMARY CARE SECURE MESSAGING Has ADDENDA ------Original Message ------ Sent: 01/07/2019 10:04 AM From: CARLOS ROMANO To: GREGS, Samantha Summers_Primary Care Subject: Medication Inquiry please re order Calcium 500 mg and Hydrocodone , thanks ------Original Message ------ Sent: 01/07/2019 12:06 PM From: JENNIFER LINDSEY To: CARLOS ROMANO Subject: Medication Inquiry forward to stella /edil LINDSEY LPN Signed: 01/07/2019 11:06 Receipt Acknowledged By: 01/07/2019 11:31 /edil BAIG 01/08/2019 ADDENDUM STATUS: COMPLETED 11/02/18 oxycodone 5 #28, 7 days Alexys Lind MD, [place], [place] filled at [facility] plan: 1 please contact vet to discuss findings on State Drug Monitoring. Who is provider? Where seen? Review [place] policy w/ controlled subs and other prescribers. Request office/visit records. Review that [facility] are to fax [facility] to [facility]. /sofya/ STELLA BAIG Signed: 01/08/2019 07:10 Receipt Acknowledged By: 01/08/2019 15:20 /sofya/ JENNIFER SANCHEZ RN [facility]
--- OUTSIDE RECORDS SUMMARY | 2019-12-04 22:06 | XMS REPORT | Encounter Summary ---
Author Author [facility] CARLOS sweeney Organization Department of [facility] Address [address] [place] [phone] Phone Unavailable Care Team Providers Care Airport Driver Name Role Phone TARIQKOURTNEY PCP Unavailable Insurance [...] PLAN G MEDICARE SUPPLEMENT Dec PLAN G [id number] [phone] ROSALINACARLOS PATIENT MEDICARE (WNR) MEDICARE (M) PART A Dec 16, 2014 PART A [id number] [phone] ROSALINACARLOS PATIENT MEDICARE (WNR) MEDICARE (M) PART B Dec 16, 2014 PART B [id number] [phone] CARLOS ROMANO PATIENT MEDICO DENTAL INSURANCE DENTAL VISIONHEARING Dec 16, 2014 DENTAL VISIONHEAR [id number] [phone] CARLOS ROMANO PATIENT Selected Encounter This section includes the information on record at [place] for the Encounter. Date/Time Encounter Type Encounter Description Reason Provider Source Dec 24, 2018 01:40 PM Outpatient Encounter PRIMARY CARE/MEDICINE JENNIFER LINDSEY [facility], [facility] 15 IHE Encounter Template Text not used by [place] Assessments - Encounter Diagnoses No Data Provided for This Section Plan of Treatment: Future Appointments (+ 6 months) and Future Tests (+/- 45 day s) The Plan of Treatment section includes future care activities for the patient fr om all [place] treatment facilities. This section includes future appointments and fu ture orders which are active, pending or scheduled. Future Appointments This section includes appointments that were scheduled t o occur 6 months from the date of the Encounter, up to a maximum of 20 appointme nts. The data comes from all [place] treatment facilities. Appointment Date/Time Appointment Type Appointment Facili ty Name Apr 02, 2019 09:45 AM AMBULATORY - MEDICINE [facility] Apr 09, 2019 01:30 PM AMBULATORY - MEDICINE [facility] Apr 24, 2019 09:30 AM AMBULATORY - MEDICINE [facility] May 29, 2019 09:00 AM AMBULATORY - NONE [facility] [place] Surgical Procedures: [...] patient. The data comes from a ll [place] treatment facilities. It does not list Allergies/ADRs that were removed or entered in error. Some allergies/ADRs may be reported in t he Immunization section. Allergen Event Date Event Type Reaction(s) Severity Source PANTOPRAZOLE Oct 01, 2018 Propensity to adverse reactions to drug (disorder) Eruption [facility] 15 PENICILLIN Jul 17, 2012 Propensity to adverse reactions to drug (disorder) Peripheral edema [facility] 15 Medications: VA dispensed (-15 months) and Non-VA Documented (Obtained Outside V A) Section Date Range: 1) prescriptions processed by a [place] pharmacy in the last 15 m [facility], and 2) all medications recorded in the [place] medical record as "non-VA medic ations". Pharmacy terms refer to [place] pharmacy's work on prescriptions. VA patient s [...] FOR INHALATION ONCE 1 Nov 16, 2018 [id number] October 17, 2018 KOURTNEY DANIELSON [facility] ALBUTEROL SO4 90MCG/ACTUAT (CFC-F) INHL,ORAL,6.7GM Active INHALE 2 PUFFS BY ORAL INHALATION FOUR TIMES A DAY NEEDED - RINSE MOUTHPIECE FREQUENTLY TO PREVENT CLOGGING 1 Apr 24, 2020 [id number] October 18, 2019 KOURTNEY DANIELSON [facility] ALBUTEROL SO4 90MCG/ACTUAT (CFC-F) INHL,ORAL,6.7GM Discontin ued INHALE 2 PUFFS BY ORAL INHALATION FOUR TIMES A DAY NEEDED - RINSE MOUTHPIECE FREQUENTLY TO PREVENT CLOGGING 2 Apr 24, 2020 [id number] Apr 24, 2019 KOURTNEY DANIELSONT [facility] BUDESONIDE 160MCG/FORMOTEROL FUM 4.5MCG/SPRAY INHL,ORAL,10.2 GM Active INHALE 2 PUFFS BY ORAL INHALATION TWO TIMES A DAY FOR BREATHING. SHAKE WELL. RINSE MOUTH AND SPIT AFTER EACH USE. 2 Apr 24, 2020 [id number] October 17, 2019 KOURTNEY JOSHI [facility] CALCIUM 500MG (CA CARBONATE-1.25GM) TAB Active: Susp TAKE ONE TABLET BY MOUTH TWO TIMES A DAY 180 Nov 20, 2020 [id number] Jan 09, 2020 KOURTNEY DANIELSON [facility] CALCIUM 500MG (CA CARBONATE-1.25GM) TAB Discontinued TAKE ONE TABLET BY MOUTH TWO TIMES A DAY 180 Jan 08, 2020 [id number] October 21, 2019 KOURTNEY DANIELSON [facility] [place] CALCIUM 500MG (CA CARBONATE-1.25GM) TAB Discontinued TAKE ONE TABLET BY MOUTH TWO TIMES A DAY 180 Dec 29, 2018 [id number] Oct 01, 2018 [facility]NI [facility] CARBIDOPA 25MG/LEVODOPA 100MG TAB Active TAKE 2 TABLETS BY MOUTH FOUR TIMES A DAY FOR PARKINSON'S DISEASE. DO NOT TAKE WITH FOOD. 240 Nov 24, 2020 [id number] Nov 27, 2019 [facility] [place] CARBIDOPA 25MG/LEVODOPA 100MG TAB Discontinued TAKE T WO TABLETS BY MOUTH FIVE TIMES DAILY FOR PARKINSON'S DISEASE. DO NOT TAKE WITH FOOD. 600 Jul 02, 2020 [id number] Nov 19, 2019 [facility] [place] CARBIDOPA 25MG/LEVODOPA 100MG TAB Discontinued TAKE 2 TABLETS BY MOUTH FIVE TIMES DAILY FOR PARKINSON'S DISEASE. DO NOT TAKE WITH FOOD. 300 Jun 30, 2020 [id number] Jul 01, 2019 [facility] [place] CARBIDOPA 25MG/LEVODOPA 100MG TAB Discontinued TAKE 2 TABLETS BY MOUTH FOUR TIMES A DAY FOR PARKINSON'S DISEASE. DO NOT TAKE WITH FOOD. 240 Jun 24, 2020 [id number] Jun 26, 2019 [facility] [place] CARBIDOPA 25MG/LEVODOPA 100MG TAB Discontinued TAKE 2 TABLETS BY MOUTH FOUR TIMES A DAY FOR PARKINSON'S DISEASE. DO NOT TAKE WITH FOOD. 240 Dec 25, 2019 [id number] May 15, 2019 [facility] [place] CARBIDOPA 25MG/LEVODOPA 100MG TAB Discontinued TAKE 2 TABLETS BY MOUTH FOUR TIMES A DAY FOR PARKINSON'S DISEASE. DO NOT TAKE WITH FOOD. 240 Jun 07, 2019 [id number] Nov 18, 2018 ALLEGRA HOWE [facility] [place] CHOLECALCIFEROL 25MCG (1,000UNIT) TAB Active: Susp TA KE TWO TABLETS BY MOUTH ONCE A DAY FOR VITAMIN D DEFICIENCY 200 Nov 20, 2020 [id number] Dec 172019 [facility] CHOLECALCIFEROL 25MCG (1,000UNIT) TAB Discontinued TA KE TWO TABLETS BY MOUTH ONCE A DAY FOR VITAMIN D DEFICIENCY 200 Dec 25, 2019 [id number] October [facility] [place] CHOLECALCIFEROL 25MCG (1,000UNIT) TAB Discontinued TA KE TWO TABLETS BY MOUTH ONCE A DAY FOR VITAMIN D DEFICIENCY 200 Oct 10, 2018 [id number] Aug 172018 [facility] CLOPIDOGREL BISULFATE 75MG TAB Active: Susp TAKE ONE TABLET BY MOUTH ONCE A DAY TO PREVENT BLOOD CLOTS 90 Apr 24, 2020 [id number] Dec 19, 2019 [facility] CLOPIDOGREL BISULFATE 75MG TAB Discontinued TAKE ONE TABLET BY MOUTH ONCE A DAY TO PREVENT BLOOD CLOTS 90 Jun 01, 2019 [id number] Mar 13, 2019 [facility] [place] DIPHENHYDRAMINE HCL 25MG CAP Non-VA TAKE 1 CAPSULE BY MOUTH EVERY 6 HOURS NEEDED Non-VA Documented by: KOURTNEY DANIELSON nted at: [facility] FLUDROCORTISONE ACETATE 0.1MG TAB Active TAKE ONE TABLET BY M OUTH ONCE A DAY 90 Nov 19, 2020 [id number] Nov 20, 2019 [facility] [place] FOLIC ACID 1MG TAB Non- VA TAKE ONE TABLET BY MOUTH ONCE A DAY N on-VA Documented by: KOURTNEY DANIELSON nted at: [facility] GABAPENTIN 300MG CAP Active TAKE 1 CAPSULE BY M OUTH 5 TIMES A DAY FOR PAIN AND TREMORS. 300 October 17, 2020 [id number] October 18, 2019 [facility] GABAPENTIN 300MG CAP Discontinued TAKE ONE CAPSULE BY MOUTH FOUR TIMES A DAY FOR PAIN AND TREMORS. 240 Jan 08, 2020 [id number] Oct 14, 2019 [facility] [place] GABAPENTIN 300MG CAP Discontinued TAKE ONE CAPSULE BY MOUTH FOUR TIMES A DAY FOR PAIN AND TREMORS. 240 Mar 08, 2019 [id number] Jan 07, 2019 [facility] [place] HYDROCODONE 10MG/ACETAMINOPHEN 325MG TAB Active TAKE ONE TABLET (10/325MG) BY MOUTH THREE TIMES A DAY NEEDED FOR PAIN CAUTION: DO NOT EXCEED 4000MG/DAY TOTAL OF ACETAMINOPHEN (APAP) FROM ALL MEDS 90 Dec 20, 2019 [id number] Nov 21, 2019 KOURTNEY DANIELSON [facility] HYDROCODONE 10MG/ACETAMINOPHEN 325MG TAB Discontinued TAKE ONE TABLET (10/325MG) BY MOUTH THREE TIMES A DAY NEEDED FOR PAIN CAUTION: DO NOT EXCEED 4000MG/DAY TOTAL OF ACETAMINOPHEN (APAP) FROM ALL MEDS 90 Sep 17, 020 [id number] Sep 04, 2019 [facility] [place] HYDROCODONE 10MG/ACETAMINOPHEN 325MG TAB Discontinued TAKE ONE TABLET BY MOUTH THREE TIMES A DAY NEEDED FOR PAIN CAUTION: DO NOT EXCEED 4000MG/DAY TOTAL OF ACETAMINOPHEN (APAP) FROM ALL MEDS 90 Jul 26, 2019 [id number] Jun 26, 2019 [facility] [place] HYDROCODONE 10MG/ACETAMINOPHEN 325MG TAB Discontinued TAKE ONE TABLET BY MOUTH THREE TIMES A DAY NEEDED FOR PAIN CAUTION: DO NOT EXCEED 4000MG/DAY TOTAL OF ACETAMINOPHEN (APAP) FROM ALL MEDS 90 Jun 27, 2019 [id number] May 29, 2019 [facility] [place] HYDROCODONE 10MG/ACETAMINOPHEN 325MG TAB Discontinued TAKE ONE TABLET BY MOUTH THREE TIMES A DAY NEEDED FOR PAIN CAUTION: DO NOT EXCEED 4000MG/DAY TOTAL OF ACETAMINOPHEN (APAP) FROM ALL MEDS 90 May 08, 2019 [id number] Apr 08, 2019 [facility] [place] HYDROCODONE 10MG/ACETAMINOPHEN 325MG TAB Discontinued TAKE ONE TABLET BY MOUTH THREE TIMES A DAY NEEDED FOR PAIN CAUTION: DO NOT EXCEED 4000MG/DAY TOTAL OF ACETAMINOPHEN (APAP) FROM ALL MEDS 90 Mar 28, 2019 [id number] Feb 26, 2019 [facility] [place] HYDROCODONE 10MG/ACETAMINOPHEN 325MG TAB Discontinued TAKE ONE TABLET BY MOUTH THREE TIMES A DAY NEEDED FOR PAIN CAUTION: DO NOT EXCEED 4000MG/DAY TOTAL OF ACETAMINOPHEN (APAP) FROM ALL MEDS 90 Feb 06, 2019 [id number] Jan 07, 2019 [facility] [place] HYDROCODONE 10MG/ACETAMINOPHEN 325MG TAB Discontinued TAKE ONE TABLET BY MOUTH THREE TIMES A DAY NEEDED FOR PAIN CAUTION: DO NOT EXCEED 4000MG/DAY TOTAL OF ACETAMINOPHEN (APAP) FROM ALL MEDS 90 Dec 05, 2018 [id number] November 05, 2018 [facility] [place] HYDROCODONE 10MG/ACETAMINOPHEN 325MG TAB Discontinued TAKE ONE TABLET BY MOUTH THREE TIMES A DAY NEEDED FOR PAIN CAUTION: DO NOT EXCEED 4000MG/DAY TOTAL OF ACETAMINOPHEN (APAP) FROM ALL MEDS 90 October 25, 2018 [id number] Sep 25, 2018 [facility] [place] HYDROCODONE 10MG/ACETAMINOPHEN 325MG TAB TAKE ONE TABLET (10/325MG) BY MOUTH THREE TIMES A DAY NEEDED FOR PAIN CAUTION: DO NOT EXCEED 4000MG/DAY TOTAL OF ACETAMINOPHEN (APAP) FROM ALL MEDS 90 November 16, 2019 [id number] October 18, 2019 [facility] METHOTREXATE NA 2.5MG TAB Active TAKE SEVEN TABLETS BY MOUTH EVERY WEEK 90 October 17, 2020 [id number] November 04, 2019 [facility] METHOTREXATE NA 2.5MG TAB Discontinued TAKE SEVEN TABLETS BY MOUTH EVERY WEEK 90 May 09, 2020 [id number] Aug 16, 2019 NASH KULKARNI [facility] METHOTREXATE NA 2.5MG TAB Discontinued TAKE SEVEN TABLETS BY MOUTH EVERY WEEK 90 Aug 04, 2019 [id number] Feb 22, 2019 YOU GOMEZ [facility] [place] NORTRIPTYLINE HCL 10MG CAP Active TAKE 2 CAPSULES BY MO UTH AT BEDTIME NEEDED 120 Apr 02, 2020 [id number] Nov 20, 2019 [facility] [place] NORTRIPTYLINE HCL 10MG CAP Discontinued TAKE 2 CAPSUL ES BY MOUTH AT BEDTIME NEEDED 120 Mar 20, 2019 [id number] Jan 23, 2019 [facility] OMEPRAZOLE 20MG CAP,EC Active TAKE 1 CAPSULE BY MOUTH EVERY MORNING TO LOWER STOMACH ACID. TAKE 30 MINUTES PRIOR TO FOOD. 90 October 17, 2020 [id number] October 21, 2019 [facility] OMEPRAZOLE 20MG CAP,EC Discontinued TAKE 1 CAPSULE BY MOUTH EVERY MORNING TO LOWER STOMACH ACID. TAKE 30 MINUTES PRIOR TO FOOD. 90 Oct 02, 2019 [id number] Aug 02, 2019 [facility] [place] PREDNISONE 1MG TAB Discontinued TAKE THREE TABLETS B Y MOUTH ONCE A DAY FOR INFLAMMATION AND IMMUNE RESPONSE. TAKE WITH FOOD OR MILK. 270 Fe 2019 [id number] Apr 24, 2019 [facility] PREDNISONE 1MG TAB Discontinued TAKE FOUR TABLETS BY MOUTH ONCE A D AY 360 Apr 22, 2019 [id number] Jan 24, 2019 [facility] [place] PREDNISONE 1MG TAB Discontinued TAKE FOUR TABLETS BY MOUTH ONCE A D AY 360 Dec 29, 2018 [id number] Oct 01, 2018 NASH KULKARNI V [facility] PREDNISONE 1MG TAB TAKE THREE TABLETS B Y MOUTH ONCE A DAY FOR INFLAMMATION AND IMMUNE RESPONSE. TAKE WITH FOOD OR MILK. 270 Ap r 2019 [id number] Jul 13, 2019 [facility] [place] PREDNISONE 5MG TAB Discontinued TAKE ONE TABLET BY MOUTH ONCE A DAY WITH FOOD 60 Aug 01, 2019 [id number] Sep 25, 2018 [facility] [place] ROPINIROLE HCL 1MG TAB Active TAKE ONE TABLET BY MOUTH AT BED TIME 90 October 17, 2020 [id number] Nov 25, 2019 [facility] ROPINIROLE HCL 1MG TAB Discontinued TAKE ONE TABLET BY MOUTH AT BED TIME 90 Dec 05, 2019 [id number] Sep 03, 2019 DEJESUSKRYSTAL Freed [facility] [place] ROPINIROLE HCL 1MG TAB Discontinued TAKE ONE TABLET BY MOUTH AT BED TIME 90 Dec 13, 2018 [id number] Sep 12, 2018 [facility] [place] TAMSULOSIN HCL 0.4MG CAP Active: Susp TAKE 1 CAPSULE BY MOUTH ONCE A DAY FOR PROSTATE. TAKE AT THE SAME TIME EACH DAY WITH FOOD. 90 Sep 30 1 [id number] Dec 20, 2019 [facility] [place] TAMSULOSIN HCL 0.4MG CAP Discontinued TAKE 1 CAPSULE BY MOUTH ONCE A DAY FOR PROSTATE. TAKE AT THE SAME TIME EACH DAY WITH FOOD. 90 Sep 12 0 [id number] Jun 24, 2019 LIS BRUCE [facility] [place] Problems (Conditions): All [...] ent(s) Provider Source Abnormal radiologic density Active [id number] KOURTNEY HWANG [facility] [place] Allergic rhinitis Active 60958471 LADY SALAZAR [facility] [place] Anemia Active 723513710 [facility] [place] Chest pain (SNOMED CT 14250788) Active 786.50 KOURTNEY DANIELSON [facility] [place] Chondrocalcinosis Active 370921710 JASONYOU [facility] [place] Chronic obstructive lung disease Active 77060884 [facility] [place] Coronary artery disease Active 92901658 Angella LINDSEY Toshia [facility] [place] Cough Active 15567889 LADY SALAZAR S [facility] [place] Cough (SNOMED CT 92729435) Active 786.2 KOURTNEY BARRON [facility] [place] Dysarthria (SNOMED CT 0261371) Active 784.51 M KOURTNEY WONG [facility] [place] Dyspnea (SNOMED CT 309932301) Active 786.09 KOURTNEY BARKSDALE [facility] [place] Eruption due to drug Active 17252023 Abdiaziz DANIELSON [facility] [place] Gastroesophageal reflux disease Active [id number] KOURTNEY DANIELSON [facility] [place] Hallux valgus AND bunion Active 295051862 DEISY GERMAIN Royce [facility] [place] Joint pain (SNOMED CT 01002993) Active 719.40 DEISY CONTRERAS [facility] [place] Joint swelling (SNOMED CT 671911810) Active 719.00 KOURTNEY DANIELSON [facility] [place] Knee pain Active 95289795 JENNIFER LINDSEY [facility] [place] Muscle weakness (SNOMED CT 07815337) Active 728.87 KOURTNEY DANIELSON [facility] [place] Neuropathy Active 984232239 KOURTNEY DANIELSON RN [facility] [place] Osteoarthritis Active 715.36 DYAN SERVIN [facility] [place] Parkinson's disease Active 50297861 TARIQETHAN SMITH [facility] [place] Peripheral Neuropathy Active 356.9 DASARAJU,P URUSHOTHAMA V [facility] [place] Personal History of Exposure to Agent Troup Active V15.89 ANDRÉS CONTRERASAL Royce [facility] [place] Polyp of colon (SNOMED CT 50788735) Active 211.3 KOURTNEY DANIELSON [facility] [place] Restless legs Active 74765862 PATRICK WHITE [facility] [place] Rheumatoid arthritis Active 79340249 Abdiaziz DANIELSON [facility] [place] Screening, Malignancy Active V76.89 LISSETH TOLEDO [facility] [place] Sleep apnea Active 25236313 KOURTNEY DANIELSON RN [facility] [place] Synovial cyst of popliteal space (SNOMED CT 94447868) Active 727.51 KOURTNEY DANIELSON [facility] [place] Tobacco dependence in remission Active 678705575 KOURTNEY DANIELSON [facility] [place] Tobacco use Active 298578388 JENNIFER LINDSEY [facility] [place] Tremor Active 90358919 JENNIFER LINDSEY K S [facility] [place] Unresolved Active 61388216 JENNIFER LINDSEY [facility] [place] Unresolved Active 06322979 JENNIFER LINDSEY [facility] [place] Radiology Reports: +/- 30 days of the encounter No Data Provided for This Section Pathology Reports: +/- 30 days of the encounter No Data Provided for This Section Encounter Notes: All associated encounter notes This section contains the clinical notes associated to the Encounter. Date/Time Encounter Note(s) Provider Source Dec 24, 2018 01:40 PM PRIMARY CARE SECURE MESSAGIN G: [facility] TITLE: EK-PRIMARY CARE SECURE MESSAGING STANDARD TITLE: PRIMARY CARE SECURE MESSAGING DATE OF NOTE: DEC 24, 2018@13:40:28 ENTRY DATE: DEC 24, 2018@13:40:29 AUTHOR: JENNIFER LINDSEY EXP COSIGNER: URGENCY: STATUS: COMPLETED ------Original Message ------ Sent: 12/23/2018 11:00 AM From: CARLOS ROMANO [facility] Abdiaziz Danielson_Mari Luo_Primary Care Subject: general info EMG by Dr Alarcon, not sure when it was but i think it was my 2nd visit. Carpel Tunnel referal , not at this time, since its been 3+ years, shoulder theropy, not at this time only if i think i need it later down the road by [place] ------Original Message ------ Sent: 12/24/2018 02:40 PM From: JENNIFER LINDSEY To: CARLOS ROMANO Subject: general info Forwarding to Kourtney travis/ JENNIFER LINDSEY LPN Signed: 12/24/2018 13:40 Receipt Acknowledged By: 12/24/2018 20:30 /sofya/ [facility]ER [facility]
--- OUTSIDE RECORDS SUMMARY | 2019-12-04 22:07 | XMS REPORT | Encounter Summary ---
Author Author [facility] CARLOS sweeney Organization Department of [facility] Address [address] [place] [id number] Phone Unavailable Care Team Providers Care Byproducts Extractor Name Role Phone TARIQKJ PCP Unavailable Insurance [...] PLAN G MEDICARE SUPPLEMENT Dec PLAN G [id number] [phone] ROSALINACARLOS PATIENT MEDICARE (WNR) MEDICARE (M) PART A Dec 16, 2014 PART A [id number] ROSALINACARLOS PATIENT MEDICARE (WNR) MEDICARE (M) PART B Dec 16, 2014 PART B [id number] CARLOS REYNOLDS PATIENT MEDICO DENTAL INSURANCE DENTAL VISIONHEARING Dec 16, 2014 DENTAL VISIONHEAR [id number] [phone] CARLOS REYNOLDS PATIENT Selected Encounter This section includes the information on record at [place] for the Encounter. Date/Time Encounter Type Encounter Description Reason Provider Source Dec 11, 2018 09:36 AM Outpatient Encounter PRIMARY CARE/MEDICINE CASSIDY LINDSEY [facility], [facility] 15 IHE Encounter Template Text [...] appointme nts. The data comes from all [place] treatment facilities. Appointment Date/Time Appointment Type Appointment Facili ty Name Apr 02, 2019 09:45 AM AMBULATORY - MEDICINE [facility] Apr 09, 2019 01:30 PM [place] [place]IC[place] [facility] [place] 24, 2019 09:30 AM AM[place]ULATORY - MEDICINE [facility] May 29, 2019 09:00 AM AMBULATORY - NONE [facility] [place] Surgical Procedures: [...] patient. The data comes from a ll [place] treatment facilities. It does not list Allergies/ADRs that were removed or entered in error. Some allergies/ADRs may be reported in t he Immunization section. Allergen Event Date Event Type Reaction(s) Severity Source PANTOPRAZOLE Oct 01, 2018 Propensity to adverse reactions to drug (disorder) Eruption [facility] 15 PENICILLIN Jul 17, 2012 Propensity to adverse reactions to drug (disorder) Peripheral edema [facility] 15 Medications: VA dispensed (-15 months) and Non-VA Documented (Obtained Outside V A) Section Date Range: 1) prescriptions processed by a [place] pharmacy in the last 15 m [facility], and 2) all medications recorded in the [place] medical record as "non-VA medic ations". Pharmacy terms refer to [place] pharmacy's work on prescriptions. VA patient s [...] FOR INHALATION ONCE 1 Nov 16, 2018 [id number] October 17, 2018 KJ POTTER [facility] ALBUTEROL SO4 90MCG/ACTUAT (CFC-F) INHL,ORAL,6.7GM Active INHALE 2 PUFFS BY ORAL INHALATION FOUR TIMES A DAY NEEDED - RINSE MOUTHPIECE FREQUENTLY TO PREVENT CLOGGING 1 Apr 24, 2020 [id number] October 18, 2019 KJ POTTER [facility] ALBUTEROL SO4 90MCG/ACTUAT (CFC-F) INHL,ORAL,6.7GM Discontin ued INHALE 2 PUFFS BY ORAL INHALATION FOUR TIMES A DAY NEEDED - RINSE MOUTHPIECE FREQUENTLY TO PREVENT CLOGGING 2 Apr 24, 2020 [id number] Apr 24, 2019 KJ POTTERT [facility] BUDESONIDE 160MCG/FORMOTEROL FUM 4.5MCG/SPRAY INHL,ORAL,10.2 GM Active INHALE 2 PUFFS BY ORAL INHALATION TWO TIMES A DAY FOR BREATHING. SHAKE WELL. RINSE MOUTH AND SPIT AFTER EACH USE. 2 Apr 24, 2020 [id number] October 17, 2019 KJ JOSHI [facility] CALCIUM 500MG (CA CARBONATE-1.25GM) TAB Active: Susp TAKE ONE TABLET BY MOUTH TWO TIMES A DAY 180 Nov 20, 2020 [id number] Jan 09, 2020 KJ POTTER [facility] CALCIUM 500MG (CA CARBONATE-1.25GM) TAB Discontinued TAKE ONE TABLET BY MOUTH TWO TIMES A DAY 180 Jan 08, 2020 [id number] October 21, [address] [facility] [place] CALCIUM 500MG (CA CARBONATE-1.25GM) TAB Discontinued TAKE ONE TABLET BY MOUTH TWO TIMES A DAY 180 Dec 29, 2018 [id number] Oct 01, 2018 [facility] CARBIDOPA 25MG/LEVODOPA 100MG TAB Active TAKE 2 TABLETS BY MOUTH FOUR TIMES A DAY FOR PARKINSON'S DISEASE. DO NOT TAKE WITH FOOD. 240 Nov 24, 2020 [id number] Nov 27, 2019 [facility] [place] CARBIDOPA 25MG/LEVODOPA 100MG TAB Discontinued TAKE T WO TABLETS BY MOUTH FIVE TIMES DAILY FOR PARKINSON'S DISEASE. DO NOT TAKE WITH FOOD. 600 Jul 02, 2020 [id number] Nov 19, 2019 [facility] [place] CARBIDOPA 25MG/LEVODOPA 100MG TAB Discontinued TAKE 2 TABLETS BY MOUTH FIVE TIMES DAILY FOR PARKINSON'S DISEASE. DO NOT TAKE WITH FOOD. 300 Jun 30, 2020 [id number] Jul 01, 2019 [facility] [place] CARBIDOPA 25MG/LEVODOPA 100MG TAB Discontinued TAKE 2 TABLETS BY MOUTH FOUR TIMES A DAY FOR PARKINSON'S DISEASE. DO NOT TAKE WITH FOOD. 240 Jun 24, 2020 [id number] Jun 26, 2019 [facility] [place] CARBIDOPA 25MG/LEVODOPA 100MG TAB Discontinued TAKE 2 TABLETS BY MOUTH FOUR TIMES A DAY FOR PARKINSON'S DISEASE. DO NOT TAKE WITH FOOD. 240 Dec 25, 2019 [id number] May 15, 2019 [facility] [place] CARBIDOPA 25MG/LEVODOPA 100MG TAB Discontinued TAKE 2 TABLETS BY MOUTH FOUR TIMES A DAY FOR PARKINSON'S DISEASE. DO NOT TAKE WITH FOOD. 240 Jun 07, 2019 [id number] Nov 18, 2018 ALLEGRA HOWE [facility] [place] CHOLECALCIFEROL 25MCG (1,000UNIT) TAB Active: Susp TA KE TWO TABLETS BY MOUTH ONCE A DAY FOR VITAMIN D DEFICIENCY 200 Nov 20, 2020 [id number] Dec 172019 [employer] CHOLECALCIFEROL 25MCG (1,000UNIT) TAB Discontinued TA KE TWO TABLETS BY MOUTH ONCE A DAY FOR VITAMIN D DEFICIENCY 200 Dec 25, 2019 [id number] October [facility] [place] CHOLECALCIFEROL 25MCG (1,000UNIT) TAB Discontinued TA KE TWO TABLETS BY MOUTH ONCE A DAY FOR VITAMIN D DEFICIENCY 200 Oct 10, 2018 [id number] Aug 172018 [employer] CLOPIDOGREL BISULFATE 75MG TAB Active: Susp TAKE ONE TABLET BY MOUTH ONCE A DAY TO PREVENT BLOOD CLOTS 90 Apr 24, 2020 [id number] Dec 19, 2019 [facility] CLOPIDOGREL BISULFATE 75MG TAB Discontinued TAKE ONE TABLET BY MOUTH ONCE A DAY TO PREVENT BLOOD CLOTS 90 Jun 01, 2019 [id number] Mar 13, 2019 [facility] [place] DIPHENHYDRAMINE HCL 25MG CAP Non-VA TAKE 1 CAPSULE BY MOUTH EVERY 6 HOURS NEEDED Non-VA Documented by: KJ POTTER nted at: [facility] FLUDROCORTISONE ACETATE 0.1MG TAB Active TAKE ONE TABLET BY M OUTH ONCE A DAY 90 Nov 19, 2020 [id number] Nov 20, 2019 [facility] [place] FOLIC ACID 1MG TAB Non- VA TAKE ONE TABLET BY MOUTH ONCE A DAY N on-VA Documented by: KJ POTTER nted at: [facility] GABAPENTIN 300MG CAP Active TAKE 1 CAPSULE BY M OUTH 5 TIMES A DAY FOR PAIN AND TREMORS. 300 October 17, 2020 [id number] October 18, 2019 [facility] GABAPENTIN 300MG CAP Discontinued TAKE ONE CAPSULE BY MOUTH FOUR TIMES A DAY FOR PAIN AND TREMORS. 240 Jan 08, 2020 [id number] Oct 14, 2019 [facility] [place] GABAPENTIN 300MG CAP Discontinued TAKE ONE CAPSULE BY MOUTH FOUR TIMES A DAY FOR PAIN AND TREMORS. 240 Mar 08, 2019 [id number] Jan 07, 2019 [facility] [place] HYDROCODONE 10MG/ACETAMINOPHEN 325MG TAB Active TAKE ONE TABLET (10/325MG) BY MOUTH THREE TIMES A DAY NEEDED FOR PAIN CAUTION: DO NOT EXCEED 4000MG/DAY TOTAL OF ACETAMINOPHEN (APAP) FROM ALL MEDS 90 Dec 20, 2019 [id number] Nov 21, 2019 KJ POTTER [facility] HYDROCODONE 10MG/ACETAMINOPHEN 325MG TAB Discontinued TAKE ONE TABLET (10/325MG) BY MOUTH THREE TIMES A DAY NEEDED FOR PAIN CAUTION: DO NOT EXCEED 4000MG/DAY TOTAL OF ACETAMINOPHEN (APAP) FROM ALL MEDS 90 Sep 17, 020 [id number] Sep 04, 2019 [facility] [place] HYDROCODONE 10MG/ACETAMINOPHEN 325MG TAB Discontinued TAKE ONE TABLET BY MOUTH THREE TIMES A DAY NEEDED FOR PAIN CAUTION: DO NOT EXCEED 4000MG/DAY TOTAL OF ACETAMINOPHEN (APAP) FROM ALL MEDS 90 Jul 26, 2019 [id number] Jun 26, 2019 [facility] [place] [facility] HYDROCODONE 10MG/ACETAMINOPHEN 325MG TAB Discontinued TAKE ONE TABLET BY MOUTH THREE TIMES A DAY NEEDED FOR PAIN CAUTION: DO NOT EXCEED 4000MG/DAY TOTAL OF ACETAMINOPHEN (APAP) FROM ALL MEDS 90 Jun 27, 2019 [id number] May 29, 2019 [facility] [place] HYDROCODONE 10MG/ACETAMINOPHEN 325MG TAB Discontinued TAKE ONE TABLET BY MOUTH THREE TIMES A DAY NEEDED FOR PAIN CAUTION: DO NOT EXCEED 4000MG/DAY TOTAL OF ACETAMINOPHEN (APAP) FROM ALL MEDS 90 May 08, 2019 [id number] Apr 08, 2019 [facility] [place] [facility] HYDROCODONE 10MG/ACETAMINOPHEN 325MG TAB Discontinued TAKE ONE TABLET BY MOUTH THREE TIMES A DAY NEEDED FOR PAIN CAUTION: DO NOT EXCEED 4000MG/DAY TOTAL OF ACETAMINOPHEN (APAP) FROM ALL MEDS 90 Mar 28, 2019 [id number] Feb 26, 2019 [facility] [place] [facility] HYDROCODONE 10MG/ACETAMINOPHEN 325MG TAB Discontinued TAKE ONE TABLET BY MOUTH THREE TIMES A DAY NEEDED FOR PAIN CAUTION: DO NOT EXCEED 4000MG/DAY TOTAL OF ACETAMINOPHEN (APAP) FROM ALL MEDS 90 Feb 06, 2019 [id number] Jan 07, 2019 [facility] [place] HYDROCODONE 10MG/ACETAMINOPHEN 325MG TAB Discontinued TAKE ONE TABLET BY MOUTH THREE TIMES A DAY NEEDED FOR PAIN CAUTION: DO NOT EXCEED 4000MG/DAY TOTAL OF ACETAMINOPHEN (APAP) FROM ALL MEDS 90 Dec 05, 2018 [id number] November 05, 2018 [facility] [place] HYDROCODONE 10MG/ACETAMINOPHEN 325MG TAB Discontinued TAKE ONE TABLET BY MOUTH THREE TIMES A DAY NEEDED FOR PAIN CAUTION: DO NOT EXCEED 4000MG/DAY TOTAL OF ACETAMINOPHEN (APAP) FROM ALL MEDS 90 October 25, 2018 [id number] Sep 25, 2018 [facility] [place] HYDROCODONE 10MG/ACETAMINOPHEN 325MG TAB TAKE ONE TABLET (10/325MG) BY MOUTH THREE TIMES A DAY NEEDED FOR PAIN CAUTION: DO NOT EXCEED 4000MG/DAY TOTAL OF ACETAMINOPHEN (APAP) FROM ALL MEDS 90 November 16, 2019 [id number] October 18, 2019 [employer] METHOTREXATE NA 2.5MG TAB Active TAKE SEVEN TABLETS BY MOUTH EVERY WEEK 90 October 17, 2020 [id number] November 04, 2019 [facility] METHOTREXATE NA 2.5MG TAB Discontinued TAKE SEVEN TABLETS BY MOUTH EVERY WEEK 90 May 09, 2020 [id number] Aug 16, 2019 NASH KULKARNI [facility] METHOTREXATE NA 2.5MG TAB Discontinued TAKE SEVEN TABLETS BY MOUTH EVERY WEEK 90 Aug 04, 2019 [id number] Feb 22, 2019 YOU GOMEZ [facility] [place] NORTRIPTYLINE HCL 10MG CAP Active TAKE 2 CAPSULES BY MO UTH AT BEDTIME NEEDED 120 Apr 02, 2020 [id number] Nov 20, 2019 [facility] [place] NORTRIPTYLINE HCL 10MG CAP Discontinued TAKE 2 CAPSUL ES BY MOUTH AT BEDTIME NEEDED 120 Mar 20, 2019 [id number] Jan 23, 2019 [facility] OMEPRAZOLE 20MG CAP,EC Active TAKE 1 CAPSULE BY MOUTH EVERY MORNING TO LOWER STOMACH ACID. TAKE 30 MINUTES PRIOR TO FOOD. 90 October 17, 2020 [id number] October 21, 2019 [employer] OMEPRAZOLE 20MG CAP,EC Discontinued TAKE 1 CAPSULE BY MOUTH EVERY MORNING TO LOWER STOMACH ACID. TAKE 30 MINUTES PRIOR TO FOOD. 90 Oct 02, 2019 [id number] Aug 02, 2019 [facility] [place] PREDNISONE 1MG TAB Discontinued TAKE THREE TABLETS B Y MOUTH ONCE A DAY FOR INFLAMMATION AND IMMUNE RESPONSE. TAKE WITH FOOD OR MILK. 270 Fe 2019 [id number] Apr 24, 2019 [employer] PREDNISONE 1MG TAB Discontinued TAKE FOUR TABLETS BY MOUTH ONCE A D AY 360 Apr 22, 2019 [id number] Jan 24, 2019 [facility] [place] PREDNISONE 1MG TAB Discontinued TAKE FOUR TABLETS BY MOUTH ONCE A D AY 360 Dec 29, 2018 [id number] Oct 01, 2018 NASH KULKARNI [place] [facility] [place] PREDNISONE 1MG TAB TAKE THREE TABLETS B Y MOUTH ONCE A DAY FOR INFLAMMATION AND IMMUNE RESPONSE. TAKE WITH FOOD OR MILK. 270 Ap r 2019 [id number] Jul 13, 2019 [facility] [place] PREDNISONE 5MG TAB Discontinued TAKE ONE TABLET BY MOUTH ONCE A DAY WITH FOOD 60 Aug 01, 2019 [id number] Sep 25, 2018 [facility] [place] ROPINIROLE HCL 1MG TAB Active TAKE ONE TABLET BY MOUTH AT BED TIME 90 October 17, 2020 [id number] Nov 25, 2019 [facility] ROPINIROLE HCL 1MG TAB Discontinued TAKE ONE TABLET BY MOUTH AT BED TIME 90 Dec 05, 2019 [id number] Sep 03, 2019 DEJESUSKRYSTAL Freed [facility] [place] ROPINIROLE HCL 1MG TAB Discontinued TAKE ONE TABLET BY MOUTH AT BED TIME 90 Dec 13, 2018 [id number] Sep 12, 2018 [facility] [place] TAMSULOSIN HCL 0.4MG CAP Active: Susp TAKE 1 CAPSULE BY MOUTH ONCE A DAY FOR PROSTATE. TAKE AT THE SAME TIME EACH DAY WITH FOOD. 90 Sep 30 1 [id number] Dec 20, 2019 [facility] [place] TAMSULOSIN HCL 0.4MG CAP Discontinued TAKE 1 CAPSULE BY MOUTH ONCE A DAY FOR PROSTATE. TAKE AT THE SAME TIME EACH DAY WITH FOOD. 90 Sep 12 0 [id number] Jun 24, 2019 LIS BRUCE [facility] [place] [facility] Problems (Conditions): All historical [...] ent(s) Provider Source Abnormal radiologic density Active [id number] KJ HWANG [facility] [place] [facility] Allergic rhinitis Active 57178774 LADY SALAZAR [facility] [place] [facility] Anemia Active 265556603 [facility] [place] Chest pain (SNOMED CT 29834616) Active 786.50 KJ POTTER [facility] [place] [facility] Chondrocalcinosis Active 154702333 JASONYOU [facility] [place] [facility] Chronic obstructive lung disease Active 02295558 [facility] [place] Coronary artery disease Active 17237466 Angella LINDSEY Toshia [facility] [place] [facility] Cough Active 56777456 LADY SALAZAR S [facility] [place] Cough (SNOMED CT 05873714) Active 786.2 KJ BARRON [facility] [place] Dysarthria (SNOMED CT 6016255) Active 784.51 M KJ WONG [facility] [place] Dyspnea (SNOMED CT 499695595) Active 786.09 KJ BARKSDALE [facility] [place] Eruption due to drug Active 83896362 Abdiaziz POTTER [facility] [place] Gastroesophageal reflux disease Active 541741540 KJ POTTER [facility] [place] [facility] Hallux valgus AND bunion Active 866032871 DEISY GERMAIN Royce [facility] [place] [facility] Joint pain (SNOMED CT 85969219) Active 719.40 DEISY CONTRERAS [facility] [place] Joint swelling (SNOMED CT 442871640) Active 719.00 KJ POTTER [facility] [place] [facility] Knee pain Active 12874804 CASSIDY LINDSEY [facility] [place] Muscle weakness (SNOMED CT 41681749) Active 728.87 KJ POTTER [facility] [place] Neuropathy Active 850718605 KJ POTTER RN [facility] [place] Osteoarthritis Active 715.36 DYAN SERVIN [facility] [place] Parkinson's disease Active 29023264 TARIQETHAN CHUNG [facility] [place] Peripheral Neuropathy Active 356.9 DASARAJU,P URUSHOTHAMA V [facility] [place] [facility] Personal History of Exposure to Agent Dorado Active V15.89 DIANEDEISY Royce [facility] [place] [facility] Polyp of colon (SNOMED CT 65662670) Active 211.3 KJ POTTER [facility] [place] Restless legs Active 25338889 PATRICK WHITE [facility] [place] Rheumatoid arthritis Active 72584507 Abdiaziz POTTER [facility] [place] [facility] Screening, Malignancy Active V76.89 LISSETH TOLEDO [facility] [place] Sleep apnea Active 48000233 KJ POTTER RN [facility] [place] Synovial cyst of popliteal space (SNOMED CT 27504028) Active 727.51 KJ POTTER [facility] [place] [facility] Tobacco dependence in remission Active 051234091 KJ POTTER [facility] [place] Tobacco use Active 689307239 CASSIDY LINDSEY [facility] [place] Tremor Active 21229156 CASSIDY LINDSEY K S [facility] [place] Unresolved Active 76966328 CASSIDY LINDSEY [facility] [place] Unresolved Active 44419280 CASSIDY LINDSEY [facility] [place] Radiology Reports: +/- 30 days of the encounter No Data Provided for This Section Pathology Reports: +/- 30 days of the encounter No Data Provided for This Section Encounter Notes: All associated encounter notes This section contains the clinical notes associated to the Encounter. Date/Time Encounter Note(s) Provider Source Dec 11, 2018 09:36 AM PRIMARY CARE SECURE MESSAGIN G: [facility] TITLE: EK-PRIMARY CARE SECURE MESSAGING STANDARD TITLE: PRIMARY CARE SECURE MESSAGING DATE OF NOTE: DEC 11, 2018@09:36:29 ENTRY DATE: DEC 11, 2018@09:36:30 AUTHOR: CASSIDY LINDSEY EXP COSIGNER: URGENCY: STATUS: COMPLETED ------Original Message ------ Sent: 12/11/2018 10:36 AM From: CASSIDY LINDSEY To: CARLOS REYNOLDS Subject: General Inquiry Mr Reynolds Needing some info 1. Did you have an EMG done by Dr Howe? if so when and where was it done..we need to get records. Are you wanting a Carpal Tunnel referral ? Are you wanting Physical Therapy on your shoulder? The consult that was put in, is still open. They have been trying to get ahold of you on phone. So you need to call ext [phone] to get that set up , but needs done MATIAS or it will be discontinued due to no response Please let me know Thanks Cassidy Lindsey LPN /sofya/ CASSIDY LINDSEY LPN Signed: 12/11/2018 09:36 CASSIDY LINDSEY [facility]
--- OUTSIDE RECORDS SUMMARY | 2019-12-04 22:07 | XMS REPORT | Encounter Summary ---
Author Author Department of [facility] CARLOS sweeney Organization Department of [facility] Address [address] [place] [address] Phone Unavailable Care Team Providers Care Processing Technologist Name Role Phone TARIQKJ PCP Unavailable Insurance [...] PLAN G MEDICARE SUPPLEMENT Dec PLAN G [id number] [phone] CARLOS ROMANO PATIENT MEDICARE (WNR) MEDICARE (M) PART A Dec 16, 2014 PART A [id number] CARLOS ROMANO PATIENT MEDICARE (WNR) MEDICARE (M) PART B Dec 16, 2014 PART B [id number] CARLOS ROMANO PATIENT MEDICO DENTAL INSURANCE DENTAL VISIONHEARING Dec 16, 2014 DENTAL VISIONHEAR [id number] [phone] CARLOS ROMANO PATIENT Selected Encounter This section includes the information on record at [facility] for the Encounter. Date/Time Encounter Type Encounter Description Reason Provider Source Dec 05, 2018 02:51 PM Outpatient Encounter ADMIN PAT ACTIVTIES (MASNO NCT) [facility] [place] IHE Encounter Template [...] 02, 2019 09:45 AM AMBULATORY - [facility]ICINE [facility] Apr 09, 2019 01:30 PM AMBULATORY - MEDICINE [facility] Apr 24, 2019 09:30 AM AMBULATORY - MEDICINE [facility] May 29, 2019 09:00 AM AMBULATORY - NONE [facility] [place] [facility] Surgical Procedures: [...] to drug (disorder) Eruption [facility] 15 [place] Jul 17, 2012 Propensity to adverse reactions to drug (disorder) Peripheral edema [facility] 15 Medications: [facility] dispensed (-15 months) and Non-VA Documented (Obtained Outside V A) Section Date Range: 1) prescriptions processed by a [place] pharmacy in the last 15 m [facility], and 2) all medications recorded in [...] FOR INHALATION ONCE 1 Nov 16, 2018 [id number] October 17, 2018 KJ POTTER [facility] ALBUTEROL SO4 90MCG/ACTUAT (CFC-F) INHL,ORAL,6.7GM Active INHALE 2 PUFFS BY ORAL INHALATION FOUR TIMES A DAY NEEDED - RINSE MOUTHPIECE FREQUENTLY TO PREVENT CLOGGING Apr 24, 2020 [id number] October 18, 2019 KJ POTTER [facility] ALBUTEROL SO4 90MCG/ACTUAT (CFC-F) INHL,ORAL,6.7GM Discontin ued INHALE 2 PUFFS BY ORAL INHALATION FOUR TIMES A DAY NEEDED - RINSE MOUTHPIECE FREQUENTLY TO PREVENT CLOGGING Apr 24, 2020 [id number] Apr 24, 2019 KJ POTTERT [facility] BUDESONIDE 160MCG/FORMOTEROL FUM 4.5MCG/SPRAY INHL,ORAL,10.2 GM Active INHALE 2 PUFFS BY ORAL INHALATION TWO TIMES A DAY FOR BREATHING. SHAKE WELL. RINSE MOUTH AND SPIT AFTER EACH USE. 2 Apr 24, 2020 [id number] October 17, 2019 KJ JOSHI [facility] CALCIUM 500MG (CA CARBONATE-1.25GM) TAB Active: Susp TAKE ONE TABLET BY MOUTH TWO TIMES A DAY 180 Nov 20, 2020 [id number] Jan 09, 2020 TARIQKJ [facility] CALCIUM 500MG (CA CARBONATE-1.25GM) TAB Discontinued TAKE ONE TABLET BY MOUTH TWO TIMES A DAY 180 Jan 08, 2020 [id number] October 21, [address] [facility] [place] [facility] CALCIUM 500MG (CA CARBONATE-1.25GM) TAB Discontinued TAKE ONE TABLET BY MOUTH TWO TIMES A DAY 180 Dec 29, 2018 [id number] Oct 01, 2018 [facility] CARBIDOPA 25MG/LEVODOPA 100MG TAB Active TAKE 2 TABLETS BY MOUTH FOUR TIMES A DAY FOR PARKINSON'S DISEASE. DO NOT TAKE WITH FOOD. 240 Nov 24, 2020 [id number] Nov 27, 2019 [facility] [place] CARBIDOPA 25MG/LEVODOPA 100MG TAB Discontinued TAKE T WO TABLETS BY MOUTH FIVE TIMES DAILY FOR PARKINSON'S DISEASE. DO NOT TAKE WITH FOOD. 600 Jul 02, 2020 [id number] Nov 19, 2019 [facility] [place] [facility] CARBIDOPA 25MG/LEVODOPA 100MG TAB Discontinued TAKE 2 TABLETS BY MOUTH FIVE TIMES DAILY FOR PARKINSON'S DISEASE. DO NOT TAKE WITH FOOD. 300 Jun 30, 2020 [id number] Jul 01, 2019 [facility] [place] CARBIDOPA 25MG/LEVODOPA 100MG TAB Discontinued TAKE 2 TABLETS BY MOUTH FOUR TIMES A DAY FOR PARKINSON'S DISEASE. DO NOT TAKE WITH FOOD. 240 Jun 24, 2020 [id number] Jun 26, 2019 [facility] [place] [facility] CARBIDOPA 25MG/LEVODOPA 100MG TAB Discontinued TAKE 2 TABLETS BY MOUTH FOUR TIMES A DAY FOR PARKINSON'S DISEASE. DO NOT TAKE WITH FOOD. 240 Dec 25, 2019 [id number] May 15, 2019 [facility] [place] [facility] CARBIDOPA 25MG/LEVODOPA 100MG TAB Discontinued TAKE 2 TABLETS BY MOUTH FOUR TIMES A DAY FOR PARKINSON'S DISEASE. DO NOT TAKE WITH FOOD. 240 Jun 07, 2019 [id number] Nov 18, 2018 MEIR HOWE [facility] [place] CHOLECALCIFEROL 25MCG (1,000UNIT) TAB Active: Susp TA KE TWO TABLETS BY MOUTH ONCE A DAY FOR VITAMIN D DEFICIENCY 200 Nov 20, 2020 [id number] Dec 172019 [facility] CHOLECALCIFEROL 25MCG (1,000UNIT) TAB Discontinued TA KE TWO TABLETS BY MOUTH ONCE A DAY FOR VITAMIN D DEFICIENCY 200 Dec 25, 2019 [id number] October [facility] [place] CHOLECALCIFEROL 25MCG (1,000UNIT) TAB Discontinued TA KE TWO TABLETS BY MOUTH ONCE A DAY FOR VITAMIN D DEFICIENCY 200 Oct 10, 2018 [id number] Aug 172018 [facility] CLOPIDOGREL BISULFATE 75MG TAB Active: Susp TAKE ONE TABLET BY MOUTH ONCE A DAY TO PREVENT BLOOD CLOTS 90 Apr 24, 2020 [id number] Dec 19, 2019 [facility] CLOPIDOGREL BISULFATE 75MG TAB Discontinued TAKE ONE TABLET BY MOUTH ONCE A DAY TO PREVENT BLOOD CLOTS 90 Jun 01, 2019 [id number] Mar 13, 2019 [facility] [place] DIPHENHYDRAMINE HCL 25MG CAP Non-VA TAKE 1 CAPSULE BY MOUTH EVERY 6 HOURS NEEDED Non-VA Documented by: KJ POTTER nted at: [facility] FLUDROCORTISONE ACETATE 0.1MG TAB Active TAKE ONE TABLET BY M OUTH ONCE A DAY 90 Nov 19, 2020 [id number] Nov 20, 2019 [facility] [place] FOLIC ACID 1MG TAB Non- [facility] TAKE ONE TABLET BY MOUTH ONCE A DAY N on-VA Documented by: KJ POTTER nted at: [facility] GABAPENTIN 300MG CAP Active TAKE 1 CAPSULE BY M OUTH 5 TIMES A DAY FOR PAIN AND TREMORS. 300 October 17, 2020 [id number] October 18, 2019 [facility] GABAPENTIN 300MG CAP Discontinued TAKE ONE CAPSULE BY MOUTH FOUR TIMES A DAY FOR PAIN AND TREMORS. 240 Jan 08, 2020 [id number] Oct 14, 2019 [facility] [place] GABAPENTIN 300MG CAP Discontinued TAKE ONE CAPSULE BY MOUTH FOUR TIMES A DAY FOR PAIN AND TREMORS. 240 Mar 08, 2019 [id number] Jan 07, 2019 [facility] [place] HYDROCODONE 10MG/ACETAMINOPHEN 325MG TAB Active TAKE ONE TABLET (10/325MG) BY MOUTH THREE TIMES A DAY NEEDED FOR PAIN CAUTION: DO NOT EXCEED 4000MG/DAY TOTAL OF ACETAMINOPHEN (APAP) FROM ALL MEDS 90 Dec 20, 2019 [id number] Nov 21, 2019 TARIQKJ SMITH [facility] HYDROCODONE 10MG/ACETAMINOPHEN 325MG TAB Discontinued TAKE ONE TABLET (10/325MG) BY MOUTH THREE TIMES A DAY NEEDED FOR PAIN CAUTION: DO NOT EXCEED 4000MG/DAY TOTAL OF ACETAMINOPHEN (APAP) FROM ALL MEDS 90 Sep 17, 020 [id number] Sep 04, [facility] [place] HYDROCODONE 10MG/ACETAMINOPHEN 325MG TAB Discontinued TAKE ONE TABLET BY MOUTH THREE TIMES A DAY NEEDED FOR PAIN CAUTION: DO NOT EXCEED 4000MG/DAY TOTAL OF ACETAMINOPHEN (APAP) FROM ALL MEDS 90 Jul 26, 2019 [id number] Jun 26, 2019 TARIQ,[facility] [place] HYDROCODONE 10MG/ACETAMINOPHEN 325MG TAB Discontinued TAKE ONE TABLET BY MOUTH THREE TIMES A DAY NEEDED FOR PAIN CAUTION: DO NOT EXCEED 4000MG/DAY TOTAL OF ACETAMINOPHEN (APAP) FROM ALL MEDS 90 Jun 27, 2019 [id number] May 29, 2019 TARIQ,[facility] [place] HYDROCODONE 10MG/ACETAMINOPHEN 325MG TAB Discontinued TAKE ONE TABLET BY MOUTH THREE TIMES A DAY NEEDED FOR PAIN CAUTION: DO NOT EXCEED 4000MG/DAY TOTAL OF ACETAMINOPHEN (APAP) FROM ALL MEDS 90 May 08, 2019 [id number] Apr 08, 2019 TARIQ,[facility] [place] HYDROCODONE 10MG/ACETAMINOPHEN 325MG TAB Discontinued TAKE ONE TABLET BY MOUTH THREE TIMES A DAY NEEDED FOR PAIN CAUTION: DO NOT EXCEED 4000MG/DAY TOTAL OF ACETAMINOPHEN (APAP) FROM ALL MEDS 90 Mar 28, 2019 [id number] Feb 26, 2019 [facility] [place] HYDROCODONE 10MG/ACETAMINOPHEN 325MG TAB Discontinued TAKE ONE TABLET BY MOUTH THREE TIMES A DAY NEEDED FOR PAIN CAUTION: DO NOT EXCEED 4000MG/DAY TOTAL OF ACETAMINOPHEN (APAP) FROM ALL MEDS 90 Feb 06, 2019 [id number] Jan 07, 2019 [facility] [place] HYDROCODONE 10MG/ACETAMINOPHEN 325MG TAB Discontinued TAKE ONE TABLET BY MOUTH THREE TIMES A DAY NEEDED FOR PAIN CAUTION: DO NOT EXCEED 4000MG/DAY TOTAL OF ACETAMINOPHEN (APAP) FROM ALL MEDS 90 Dec 05, 2018 [id number] November 05, 2018 [facility] [place] HYDROCODONE 10MG/ACETAMINOPHEN 325MG TAB Discontinued TAKE ONE TABLET BY MOUTH THREE TIMES A DAY NEEDED FOR PAIN CAUTION: DO NOT EXCEED 4000MG/DAY TOTAL OF ACETAMINOPHEN (APAP) FROM ALL MEDS 90 October 25, 2018 [id number] Sep 25, 2018 [facility] [place] HYDROCODONE 10MG/ACETAMINOPHEN 325MG TAB TAKE ONE TABLET (10/325MG) BY MOUTH THREE TIMES A DAY NEEDED FOR PAIN CAUTION: DO NOT EXCEED 4000MG/DAY TOTAL OF ACETAMINOPHEN (APAP) FROM ALL MEDS 90 November 16, 2019 [id number] October 18, 2019 [facility] METHOTREXATE NA 2.5MG TAB Active TAKE SEVEN TABLETS BY MOUTH EVERY WEEK 90 October 17, 2020 [id number] November 04, 2019 [facility] METHOTREXATE NA 2.5MG TAB Discontinued TAKE SEVEN TABLETS BY MOUTH EVERY WEEK 90 May 09, 2020 [id number] Aug 16, 2019 NASH KULKARNI [facility] METHOTREXATE NA 2.5MG TAB Discontinued TAKE SEVEN TABLETS BY MOUTH EVERY WEEK 90 Aug 04, 2019 [id number] Feb 22, 2019 YOU GOMEZ [facility] [place] NORTRIPTYLINE HCL 10MG CAP Active TAKE 2 CAPSULES BY MO UTH AT BEDTIME NEEDED 120 Apr 02, 2020 [id number] Nov 20, 2019 [facility] [place] NORTRIPTYLINE HCL 10MG CAP Discontinued TAKE 2 CAPSUL ES BY MOUTH AT BEDTIME NEEDED 120 Mar 20, 2019 [id number] Jan 23, 2019 [facility] OMEPRAZOLE 20MG CAP,EC Active TAKE 1 CAPSULE BY MOUTH EVERY MORNING TO LOWER STOMACH ACID. TAKE 30 MINUTES PRIOR TO FOOD. 90 October 17, 2020 [id number] October 21, 2019 [facility] OMEPRAZOLE 20MG CAP,EC Discontinued TAKE 1 CAPSULE BY MOUTH EVERY MORNING TO LOWER STOMACH ACID. TAKE 30 MINUTES PRIOR TO FOOD. 90 Oct 02, 2019 [id number] Aug 02, 2019 [facility] [place] PREDNISONE 1MG TAB Discontinued TAKE THREE TABLETS B Y MOUTH ONCE A DAY FOR INFLAMMATION AND IMMUNE RESPONSE. TAKE WITH FOOD OR MILK. 270 Fe 2019 [id number] Apr 24, 2019 [facility] PREDNISONE 1MG TAB Discontinued TAKE FOUR TABLETS BY MOUTH ONCE A D AY 360 Apr 22, 2019 [id number] Jan 24, 2019 [facility] [place] PREDNISONE 1MG TAB Discontinued TAKE FOUR TABLETS BY MOUTH ONCE A D AY 360 Dec 29, 2018 [id number] Oct 01, 2018 NASH KULKARNI V [facility] PREDNISONE 1MG TAB TAKE THREE TABLETS B Y MOUTH ONCE A DAY FOR INFLAMMATION AND IMMUNE RESPONSE. TAKE WITH FOOD OR MILK. 270 Ap r 2019 [id number] Jul 13, 2019 [facility] [place] PREDNISONE 5MG TAB Discontinued TAKE ONE TABLET BY MOUTH ONCE A DAY WITH FOOD 60 Aug 01, 2019 [id number] Sep 25, 2018 [facility] [place] ROPINIROLE HCL 1MG TAB Active TAKE ONE TABLET BY MOUTH AT BED TIME 90 October 17, 2020 [id number] Nov 25, 2019 [facility] ROPINIROLE HCL 1MG TAB Discontinued TAKE ONE TABLET BY MOUTH AT BED TIME 90 Dec 05, 2019 [id number] Sep 03, 2019 KRYSTAL DEJESUS [facility] [place] ROPINIROLE HCL 1MG TAB Discontinued TAKE ONE TABLET BY MOUTH AT BED TIME 90 Dec 13, 2018 [id number] Sep 12, 2018 [facility] [place] [facility] TAMSULOSIN HCL 0.4MG CAP Active: Susp TAKE 1 CAPSULE BY MOUTH ONCE A DAY FOR PROSTATE. TAKE AT THE SAME TIME EACH DAY WITH FOOD. 90 Sep 30 1 [id number] Dec 20, 2019 KJ POTTER [facility] [place] TAMSULOSIN HCL 0.4MG CAP Discontinued TAKE 1 CAPSULE BY MOUTH ONCE A DAY FOR PROSTATE. TAKE AT THE SAME TIME EACH DAY WITH FOOD. 90 Sep 12 0 [id number] Jun 24, 2019 LIS BRUCE [facility] [place] Problems (Conditions): All [...] ent(s) Provider Source Abnormal radiologic density Active [id number] KJ HWANG [facility] [place] Allergic rhinitis Active 38825902 LADY SALAZAR [facility] [place] [facility] Anemia Active 167303769 [facility] [place] [facility] Chest pain (SNOMED CT 37689416) Active 786.50 KJ POTTER [facility] [place] [facility] Chondrocalcinosis Active [id number] JASONYOU [facility] [place] [facility] Chronic obstructive lung disease Active 02151016 [facility] [place] [facility] Coronary artery disease Active 84659233 Angella LINDSEY Toshia [facility] [place] Cough Active 11117165 LADY SALAZAR FLEMING Angella Love [facility] [place] Cough (SNOMED CT 04491759) Active 786.2 MIGUEL A SHELDONKJ Ortega [facility] [place] Dysarthria (SNOMED CT 0629588) Active 784.51 M CORRINEJESSEKJ Ortega [facility] [place] [facility] Dyspnea (SNOMED CT 071811088) Active 786.09 KJ BARKSDALE [facility] [place] Eruption due to drug Active 29475446 Abdiaziz POTTER [facility] [place] Gastroesophageal reflux disease Active [id number] KJ POTTER [facility] [place] Hallux valgus AND bunion Active 235161819 DEISY GERMAIN Royce [facility] [place] Joint pain (SNOMED CT 43918109) Active 719.40 DEISY CONTRERAS [facility] [place] Joint swelling (SNOMED CT 551216040) Active 719.00 KJ POTTER [facility] [place] [facility] Knee pain Active 71260295 JENNIFER LINDSEY [facility] [place] Muscle weakness (SNOMED CT 16105496) Active 728.87 KJ POTTER [facility] [place] [facility] Neuropathy Active [id number] KJ POTTER RN [facility] [place] Osteoarthritis Active 715.36 DYAN SERVIN [facility] [place] Parkinson's disease Active 32638351 TARIQETHAN CHUNG [facility] [place] [facility] Peripheral Neuropathy Active 356.9 DASARAJU,P URUSHOTHAMA V [facility] [place] [facility] Personal History of Exposure to Agent Johnson Active V15.89 DEISY CONTRERAS [facility] [place] Polyp of colon (SNOMED CT 00527259) Active 211.3 KJ POTTER [facility] [place] [facility] Restless legs Active 39292094 PATRICK WHITE [facility] [place] Rheumatoid arthritis Active 19146772 Abdiaziz POTTER [facility] [place] [facility] Screening, Malignancy Active V76.89 LISSETH TOLEDO [facility] [place] Sleep apnea Active 64211025 KJ POTTER RN [facility] [place] Synovial cyst of popliteal space (SNOMED CT 83038834) Active 727.51 KJ POTTER [facility] [place] [facility] Tobacco dependence in remission Active 131586655 KJ POTTER [facility] [place] [facility] Tobacco use Active 675939947 JENNIFER LINDSEY [facility] [place] Tremor Active 92923141 JENNIFER LINDSEY K S [facility] [place] Unresolved Active 72919974 JENNIFER LINDSEY [facility] [place] Unresolved Active 84006834 JENNIFER LINDSEY [facility] [place] Radiology Reports: +/- 30 days of the encounter No Data Provided for This Section Pathology Reports: +/- 30 days of the encounter No Data Provided for This Section Encounter Notes: All associated encounter notes This section contains the clinical notes associated to the Encounter. Date/Time Encounter Note(s) Provider Source Dec 05, 2018 02:51 PM CARE MANAGEMENT NOTE: LOCAL TITLE: EK-PACT CARE MANAGEMENT STANDARD TITLE: CARE MANAGEMENT NOTE DATE OF NOTE: DEC 05, 2018@14:51 ENTRY DATE: DEC 05, 2018@14:51:13 AUTHOR: JENNIFER LINDSEY COSIGNER: URGENCY: STATUS: COMPLETED EK-PACT CARE MANAGEMENT Has ADDENDA Progress notes received from [facility] Neuro[facility]ine-Neurology Dr Howe Date: 12-05-2018 to provider for viewing /edil LINDSEY LPN Signed: 12/05/2018 14:52 12/11/2018 ADDENDUM STATUS: COMPLETED Date 12-05-2018 History of present illness Pt is here for FU. He thinks he has been doing better on Sinemet 2 tablets of 25/100mg 4 times a day. Otherwise doing well. Tremor more prominent on the right side than left. has pain in bilateral wrists for a long time and lack strength. Also having issues with the right shoulder Data review EMG nerve conduction study of bilateral upper extremities showed severe right carpal tunnel, moderate left carpal tunnel, mild to moderate bilateral cubital tunnel syndrome Impression & Plan #1 Parkinsons disease Assessment: unchanged Symptoms of parkinsons for a couple of years Continue Sinemet 25/200mg tabs , 2 tabs 4 times a day #2 Numbness; hands Assessment: unchanged EMG nerve conduction study of bilateral upper extremities showed severe right carpal tunnel, moderate left carpal tunnel, mild to moderate bilateral cubital tunnel syndrome. Pt will see his primary care doctor for referral to surgeon for Carpal Tunnel and cubital tunnel release. he will also need to see an orthopedic DR for his right rotator cuff Meir Howe MD /sofya/ JENNIFER LINDSEY LPN Signed: 12/11/2018 09:47 Receipt Acknowledged By: 12/11/2018 09:50 /sofya/ JENNIFER MARSH [facility]
--- OUTSIDE RECORDS SUMMARY | 2019-12-04 22:07 | XMS REPORT | Encounter Summary ---
Author Author Department of [facility] CARLOS sweeney Organization Department of [facility] Address [address] [place] [address] Phone Unavailable Care Team Providers Care Audit Officer Name Role Phone TARIQKJ PCP Unavailable Insurance [...] PLAN G MEDICARE SUPPLEMENT Dec PLAN G [id number] [phone] CARLOS ROMANO PATIENT MEDICARE (WNR) MEDICARE (M) PART A Dec 16, 2014 PART A [id number] CARLOS ROMANO PATIENT MEDICARE (WNR) MEDICARE (M) PART B Dec 16, 2014 PART B [id number] CARLOS ROMANO PATIENT MEDICO DENTAL INSURANCE DENTAL VISIONHEARING Dec 16, 2014 DENTAL VISIONHEAR [id number] [phone] CARLOS ROMANO PATIENT Selected Encounter This section includes the information on record at [facility] for the Encounter. Date/Time Encounter Type Encounter Description Reason Provider Source Dec 12, 2018 09:06 AM Outpatient Encounter ADMIN PAT ACTIVTIES (MASNO NCT) [facility] [place] [facility] IHE Encounter Template Text not used by [facility] Assessments - Encounter Diagnoses No Data Provided for This Section Plan of Treatment: Future Appointments (+ 6 months) and Future Tests (+/- 45 day s) The Plan of Treatment section includes future care activities for the patient fr om all [place] treatment facilities. This section includes future appointments and fu ture orders which are active, pending or scheduled. Future Appointments This section includes appointments that were scheduled t o occur 6 months from the date of the Encounter, up to a maximum of 20 appointme nts. The data comes from all [place] treatment facilities. Appointment Date/Time Appointment Type Appointment Facili ty Name Apr 02, 2019 09:45 AM AMBULATORY - MEDICINE [facility] Apr 09, 2019 01:30 PM AMBULATORY - MEDICINE [facility] Apr 24, 2019 09:30 AM AMBULATORY - MEDICINE [facility] May 29, 2019 09:00 AM AMBULATORY - NONE [facility] [place] [facility] Surgical Procedures: [...] to adverse reactions to drug (disorder) Eruption [facility] 15 [place] Jul 17, 2012 Propensity to adverse reactions to drug (disorder) Peripheral edema [facility] 15 Medications: VA dispensed (-15 months) and Non-VA Documented (Obtained Outside V A) Section Date Range: 1) prescriptions processed by a [place] pharmacy in the last 15 m ssm [...] may be a prescription from either the [place] or other providers that was filled outside the [place]. Or, it may be an over the [...] FOR INHALATION ONCE 1 Nov 16, 2018 [id number] October 17, 2018 KJ POTTER [facility] ALBUTEROL SO4 90MCG/ACTUAT (CFC-F) INHL,ORAL,6.7GM Active INHALE 2 PUFFS BY ORAL INHALATION FOUR TIMES A DAY NEEDED - RINSE MOUTHPIECE FREQUENTLY TO PREVENT CLOGGING Apr 24, 2020 [id number] October 18, 2019 KJ POTTER [facility] ALBUTEROL SO4 90MCG/ACTUAT (CFC-F) INHL,ORAL,6.7GM Discontin ued INHALE 2 PUFFS BY ORAL INHALATION FOUR TIMES A DAY NEEDED - RINSE MOUTHPIECE FREQUENTLY TO PREVENT CLOGGING Apr 24, 2020 [id number] Apr 24, 2019 KJ [facility] BUDESONIDE 160MCG/FORMOTEROL FUM 4.5MCG/SPRAY INHL,ORAL,10.2 GM Active INHALE 2 PUFFS BY ORAL INHALATION TWO TIMES A DAY FOR BREATHING. SHAKE WELL. RINSE MOUTH AND SPIT AFTER EACH USE. 2 Apr 24, 2020 [id number] October 17, 2019 KJ JOSHI [facility] CALCIUM 500MG (CA CARBONATE-1.25GM) TAB Active: Susp TAKE ONE TABLET BY MOUTH TWO TIMES A DAY 180 Nov 20, 2020 [id number] Jan 09, 2020 TARIQKJ [facility] CALCIUM 500MG (CA CARBONATE-1.25GM) TAB Discontinued TAKE ONE TABLET BY MOUTH TWO TIMES A DAY 180 Jan 08, 2020 [id number] October 21, 2019 TARIQKJ [facility] [place] [facility] CALCIUM 500MG (CA CARBONATE-1.25GM) TAB Discontinued TAKE ONE TABLET BY MOUTH TWO TIMES A DAY 180 Dec 29, 2018 [id number] Oct 01, 2018 [facility] CARBIDOPA 25MG/LEVODOPA 100MG TAB Active TAKE 2 TABLETS BY MOUTH FOUR TIMES A DAY FOR PARKINSON'S DISEASE. DO NOT TAKE WITH FOOD. 240 Nov 24, 2020 [id number] Nov 27, 2019 [facility] [place] CARBIDOPA 25MG/LEVODOPA 100MG TAB Discontinued TAKE T WO TABLETS BY MOUTH FIVE TIMES DAILY FOR PARKINSON'S DISEASE. DO NOT TAKE WITH FOOD. 600 Jul 02, 2020 [id number] Nov 19, 2019 [facility] [place] [facility] CARBIDOPA 25MG/LEVODOPA 100MG TAB Discontinued TAKE 2 TABLETS BY MOUTH FIVE TIMES DAILY FOR PARKINSON'S DISEASE. DO NOT TAKE WITH FOOD. 300 Jun 30, 2020 [id number] Jul 01, 2019 [facility] [place] [facility] CARBIDOPA 25MG/LEVODOPA 100MG TAB Discontinued TAKE 2 TABLETS BY MOUTH FOUR TIMES A DAY FOR PARKINSON'S DISEASE. DO NOT TAKE WITH FOOD. 240 Jun 24, 2020 [id number] Jun 26, 2019 [facility] [place] [facility] CARBIDOPA 25MG/LEVODOPA 100MG TAB Discontinued TAKE 2 TABLETS BY MOUTH FOUR TIMES A DAY FOR PARKINSON'S DISEASE. DO NOT TAKE WITH FOOD. 240 Dec 25, 2019 [id number] May 15, 2019 [facility] [place] [facility] CARBIDOPA 25MG/LEVODOPA 100MG TAB Discontinued TAKE 2 TABLETS BY MOUTH FOUR TIMES A DAY FOR PARKINSON'S DISEASE. DO NOT TAKE WITH FOOD. 240 Jun 07, 2019 [id number] Nov 18, 2018 MEIR HOWE [facility] [place] CHOLECALCIFEROL 25MCG (1,000UNIT) TAB Active: Susp TA KE TWO TABLETS BY MOUTH ONCE A DAY FOR VITAMIN D DEFICIENCY 200 Nov 20, [id number] Dec [address] [facility] CHOLECALCIFEROL 25MCG (1,000UNIT) TAB Discontinued TA KE TWO TABLETS BY MOUTH ONCE A DAY FOR VITAMIN D DEFICIENCY 200 Dec 25, 2019 [id number] October [facility] [place] CHOLECALCIFEROL 25MCG (1,000UNIT) TAB Discontinued TA KE TWO TABLETS BY MOUTH ONCE A DAY FOR VITAMIN D DEFICIENCY 200 Oct 10, [id number] [facility] CLOPIDOGREL BISULFATE 75MG TAB Active: Susp TAKE ONE TABLET BY MOUTH ONCE A DAY TO PREVENT BLOOD CLOTS 90 Apr 24, 2020 [id number] Dec 19, 2019 [facility] CLOPIDOGREL BISULFATE 75MG TAB Discontinued TAKE ONE TABLET BY MOUTH ONCE A DAY TO PREVENT BLOOD CLOTS 90 Jun 01, 2019 [id number] Mar 13, 2019 [facility] [place] DIPHENHYDRAMINE HCL 25MG CAP Non-VA TAKE 1 CAPSULE BY MOUTH EVERY 6 HOURS NEEDED Non-VA Documented by: KJ POTTER nted at: [facility] FLUDROCORTISONE ACETATE 0.1MG TAB Active TAKE ONE TABLET BY M OUTH ONCE A DAY 90 Nov 19, 2020 [id number] Nov 20, 2019 [facility] [place] FOLIC ACID 1MG TAB Non- VA TAKE ONE TABLET BY MOUTH ONCE A DAY N on-VA Documented by: KJ POTTER nted at: [facility] GABAPENTIN 300MG CAP Active TAKE 1 CAPSULE BY M OUTH 5 TIMES A DAY FOR PAIN AND TREMORS. 300 October 17, 2020 [id number] October 18, 2019 [facility] GABAPENTIN 300MG CAP Discontinued TAKE ONE CAPSULE BY MOUTH FOUR TIMES A DAY FOR PAIN AND TREMORS. 240 Jan 08, 2020 [id number] Oct 14, 2019 [facility] [place] GABAPENTIN 300MG CAP Discontinued TAKE ONE CAPSULE BY MOUTH FOUR TIMES A DAY FOR PAIN AND TREMORS. 240 Mar 08, 2019 [id number] Jan 07, 2019 [facility] [place] [facility] HYDROCODONE 10MG/ACETAMINOPHEN 325MG TAB [...] FROM ALL MEDS 90 Sep 17, 020 [id number] Sep 04, 2019 [facility] [place] [facility] HYDROCODONE 10MG/ACETAMINOPHEN 325MG TAB Discontinued TAKE ONE TABLET BY MOUTH THREE TIMES A DAY NEEDED FOR PAIN CAUTION: DO NOT EXCEED 4000MG/DAY TOTAL OF ACETAMINOPHEN (APAP) FROM ALL MEDS 90 Jul 26, 2019 [id number] Jun 26, 2019 TARIQ,[place] [facility] [place] HYDROCODONE 10MG/ACETAMINOPHEN 325MG TAB Discontinued TAKE ONE TABLET BY MOUTH THREE TIMES A DAY NEEDED FOR PAIN CAUTION: DO NOT EXCEED 4000MG/DAY TOTAL OF ACETAMINOPHEN (APAP) FROM ALL MEDS 90 Jun 27, 2019 [id number] May 29, 2019 T[place]IQ,[place] [facility] [place] HYDROCODONE 10MG/ACETAMINOPHEN 325MG TAB Discontinued TAKE ONE TABLET BY MOUTH THREE TIMES A DAY NEEDED FOR PAIN CAUTION: DO NOT EXCEED 4000MG/DAY TOTAL OF ACETAMINOPHEN (APAP) FROM ALL MEDS 90 May 08, 2019 [id number] Apr 08, 2019 T[place]IQ,[place] [facility] [place] HYDROCODONE 10MG/ACETAMINOPHEN 325MG TAB Discontinued TAKE ONE TABLET BY MOUTH THREE TIMES A DAY NEEDED FOR PAIN CAUTION: DO NOT EXCEED 4000MG/DAY TOTAL OF ACETAMINOPHEN (APAP) FROM ALL MEDS 90 Mar 28, 2019 [id number] Feb 26, 2019 [facility] [place] HYDROCODONE 10MG/ACETAMINOPHEN 325MG TAB Discontinued TAKE ONE TABLET BY MOUTH THREE TIMES A DAY NEEDED FOR PAIN CAUTION: DO NOT EXCEED 4000MG/DAY TOTAL OF ACETAMINOPHEN (APAP) FROM ALL MEDS 90 Feb 06, 2019 [id number] Jan 07, 2019 [facility] [place] HYDROCODONE 10MG/ACETAMINOPHEN 325MG TAB Discontinued TAKE ONE TABLET BY MOUTH THREE TIMES A DAY NEEDED FOR PAIN CAUTION: DO NOT EXCEED 4000MG/DAY TOTAL OF ACETAMINOPHEN (APAP) FROM ALL MEDS 90 Dec 05, 2018 [id number] November 05, 2018 [facility] [place] HYDROCODONE 10MG/ACETAMINOPHEN 325MG TAB Discontinued TAKE ONE TABLET BY MOUTH THREE TIMES A DAY NEEDED FOR PAIN CAUTION: DO NOT EXCEED 4000MG/DAY TOTAL OF ACETAMINOPHEN (APAP) FROM ALL MEDS 90 October 25, 2018 [id number] Sep 25, 2018 [facility] [place] HYDROCODONE 10MG/ACETAMINOPHEN 325MG TAB TAKE ONE TABLET (10/325MG) BY MOUTH THREE TIMES A DAY NEEDED FOR PAIN CAUTION: DO NOT EXCEED 4000MG/DAY TOTAL OF ACETAMINOPHEN (APAP) FROM ALL MEDS 90 November 16, 2019 [id number] October 18, 2019 [facility] METHOTREXATE NA 2.5MG TAB Active TAKE SEVEN TABLETS BY MOUTH EVERY WEEK 90 October 17, 2020 [id number] November 04, 2019 [facility] METHOTREXATE NA 2.5MG TAB Discontinued TAKE SEVEN TABLETS BY MOUTH EVERY WEEK 90 May 09, 2020 [id number] Aug 16, 2019 NASH KULKARNI [facility] METHOTREXATE NA 2.5MG TAB Discontinued TAKE SEVEN TABLETS BY MOUTH EVERY WEEK 90 Aug 04, 2019 [id number] Feb 22, 2019 YOU GOMEZ [facility] [place] NORTRIPTYLINE HCL 10MG CAP Active TAKE 2 CAPSULES BY MO UTH AT BEDTIME NEEDED 120 Apr 02, 2020 [id number] Nov 20, 2019 [facility] [place] NORTRIPTYLINE HCL 10MG CAP Discontinued TAKE 2 CAPSUL ES BY MOUTH AT BEDTIME NEEDED 120 Mar 20, 2019 [id number] Jan 23, 2019 [facility] OMEPRAZOLE 20MG CAP,EC Active TAKE 1 CAPSULE BY MOUTH EVERY MORNING TO LOWER STOMACH ACID. TAKE 30 MINUTES PRIOR TO FOOD. 90 October 17, 2020 [id number] October 21, 2019 [facility] OMEPRAZOLE 20MG CAP,EC Discontinued TAKE 1 CAPSULE BY MOUTH EVERY MORNING TO LOWER STOMACH ACID. TAKE 30 MINUTES PRIOR TO FOOD. 90 Oct 02, 2019 [id number] Aug 02, 2019 [facility] [place] PREDNISONE 1MG TAB Discontinued TAKE THREE TABLETS B Y MOUTH ONCE A DAY FOR INFLAMMATION AND IMMUNE RESPONSE. TAKE WITH FOOD OR MILK. 270 Fe 2019 [id number] Apr 24, 2019 [facility] PREDNISONE 1MG TAB Discontinued TAKE FOUR TABLETS BY MOUTH ONCE A D AY 360 Apr 22, 2019 [id number] Jan 24, 2019 BLUE DAVIES [facility] [place] PREDNISONE 1MG TAB Discontinued TAKE FOUR TABLETS BY MOUTH ONCE A D AY 360 Dec 29, 2018 [id number] Oct 01, 2018 NASH KULKARNI [facility] PREDNISONE 1MG TAB TAKE THREE TABLETS B Y MOUTH ONCE A DAY FOR INFLAMMATION AND IMMUNE RESPONSE. TAKE WITH FOOD OR MILK. 270 Ap r 2019 [id number] Jul 13, 2019 [facility] [place] PREDNISONE 5MG TAB Discontinued TAKE ONE TABLET BY MOUTH ONCE A DAY WITH FOOD 60 Aug 01, 2019 [id number] Sep 25, 2018 [facility] [place] ROPINIROLE HCL 1MG TAB Active TAKE ONE TABLET BY MOUTH AT BED TIME 90 October 17, 2020 [id number] Nov 25, 2019 [facility] ROPINIROLE HCL 1MG TAB Discontinued TAKE ONE TABLET BY MOUTH AT BED TIME 90 Dec 05, 2019 [id number] Sep 03, 2019 KRYSTAL DEJESUS [facility] [place] ROPINIROLE HCL 1MG TAB Discontinued TAKE ONE TABLET BY MOUTH AT BED TIME 90 Dec 13, 2018 [id number] Sep 12, 2018 [facility] [place] [facility] TAMSULOSIN HCL 0.4MG CAP Active: Susp TAKE 1 CAPSULE BY MOUTH ONCE A DAY FOR PROSTATE. TAKE AT THE SAME TIME EACH DAY WITH FOOD. 90 Sep 30 1 [id number] Dec 20, 2019 KJ POTTER [facility] [place] TAMSULOSIN HCL 0.4MG CAP Discontinued TAKE 1 CAPSULE BY MOUTH ONCE A DAY FOR PROSTATE. TAKE AT THE SAME TIME EACH DAY WITH FOOD. 90 Sep 12 0 [id number] Jun 24, 2019 [facility] [...] ent(s) Provider Source Abnormal radiologic density Active 70204990 KJ HWANG [facility] [place] [facility] Allergic rhinitis Active 11892311 LADY SALAZAR [facility] [place] [facility] Anemia Active 294971813 [facility] [place] [facility] Chest pain (SNOMED CT 44816031) Active 786.50 KJ POTTER [facility] [place] [facility] Chondrocalcinosis Active 424764824 JASONYOU [facility] [place] [facility] Chronic obstructive lung disease Active 88436942 [facility] [place] [facility] Coronary artery disease Active 79254202 Angella LINDSEY Toshia [facility] [place] [facility] Cough Active 34868773 LADY SALAZAR [place] Angella Love [facility] [place] Cough (SNOMED CT 24611318) Active 786.2 MIGUEL A SHELDONKJ Ortega [facility] [place] [facility] Dysarthria (SNOMED CT 6456527) Active 784.51 M CORRINEJESSEKJ Ortega [facility] [place] [facility] Dyspnea (SNOMED CT 744466463) Active 786.09 KJ BARKSDALE [facility] [place] [facility] Eruption due to drug Active 07661252 Abdiaziz POTTER [facility] [place] [facility] Gastroesophageal reflux disease Active 748719734 KJ POTTER [facility] [place] [facility] Hallux valgus AND bunion Active 222881356 DEISY GERMAIN Royce [facility] [place] [facility] Joint pain (SNOMED CT 76695529) Active 719.40 DEISY CONTRERAS [facility] [place] [facility] Joint swelling (SNOMED CT 271527437) Active 719.00 KJ POTTER [facility] [place] [facility] Knee pain Active 50109962 JENNIFER LINDSEY [facility] [place] [facility] Muscle weakness (SNOMED CT 16473334) Active 728.87 KJ POTTER [facility] [place] [facility] Neuropathy Active 892079894 KJ POTTER RN [facility] [place] Osteoarthritis Active 715.36 DYAN SERVIN [facility] [place] Parkinson's disease Active 17404327 TARIQETHAN [facility] [place] [facility] Peripheral Neuropathy Active 356.9 DASARAJU,P URUSHOTHAMA V [facility] [place] [facility] Personal History of Exposure to Agent Clinch Active V15.89 DEISY CONTRERAS [facility] [place] [facility] Polyp of colon (SNOMED CT 65344544) Active 211.3 TARIQKJ SMITH [facility] [place] Restless legs Active 40338737 PATRICK WHITE [facility] [place] Rheumatoid arthritis Active 48691642 Abdiaziz POTTER [facility] [place] [facility] Screening, Malignancy Active V76.89 LISSETH TOLEDO [facility] [place] [facility] Sleep apnea Active 70302109 KJ POTTER RN [facility] [place] Synovial cyst of popliteal space (SNOMED CT 51778270) Active 727.51 KJ POTTER [facility] [place] [facility] Tobacco dependence in remission Active 263110793 KJ POTTER [facility] [place] [facility] Tobacco use Active 327728289 JENNIFER LINDSEY [facility] [place] Tremor Active 71781790 JENNIFER LINDSEY K S [facility] [place] Unresolved Active 96693220 JENNIFER LINDSEY [facility] [place] Unresolved Active 64658030 JENNIFER LINDSEY [facility] [place] Radiology Reports: +/- 30 days of the encounter No Data Provided for This Section Pathology Reports: +/- 30 days of the encounter No Data Provided for This Section Encounter Notes: All associated encounter notes This section contains the clinical notes associated to the Encounter. Date/Time Encounter Note(s) Provider Source Dec 12, 2018 09:06 AM CARE MANAGEMENT NOTE: LOCAL TITLE: EK-PACT CARE MANAGEMENT STANDARD TITLE: CARE MANAGEMENT NOTE DATE OF NOTE: DEC 12, 2018@09:06 ENTRY DATE: DEC 12, 2018@09:07:03 AUTHOR: SATHYA LINDSEY EXP COSIGNER: URGENCY: STATUS: COMPLETED EK-PACT CARE MANAGEMENT Has ADDENDA [facility] [place] (Conrado:[phone]; FDax:[phone]): DATE: 06/06/2018 PROVIDER: Meir Howe MD EMG FINDINGS: There is electrophysiological evidence of: 1. Mod. to severe right median nerve com promise at or near the wrist/carpal tunnel affecting the sensory and motor components. This is indicative of an axonal process and suggests moderate to severe right carpal tunnel syndrome. 2. Moderate left median nerve compromise at or near the writst/carpal tunnel affecting the sensory components. This is indicative of a demyelinating process and suggests moderate left cartpal tunnel suyndrome. 3. Mild to moderate bilateral ulnar ner ve compromise at or near the elbow suggesting mild to moderate bilateral cubital tunnel syndrome. Document to the [facility] Provider for review and to [facility] for scanning. /sofya/ SATHYA LINDSEY RN, BSN Signed: 12/12/2018 09:22 Receipt Acknowledged By: 12/12/2018 13:17 /sofya/ KJ BETANCOURT [facility] 12/29/2018 ADDENDUM STATUS: COMPLETED This document was scanned to [facility] Result Note Dated 06/06/2018 /sofya/ MILA LUCAS Signed: 12/29/2018 09:20 SATHYA LINDSEY [facility]
--- OUTSIDE RECORDS SUMMARY | 2019-12-04 22:07 | XMS REPORT | Encounter Summary ---
Author Author Department of [facility] CARLOS sweeney Organization Department of [facility] Address [address] [place] [address] Phone Unavailable Care Team Providers Care Dental Insurance Coordinator Name Role Phone TARIQKJ PCP Unavailable Insurance [...] PLAN G MEDICARE SUPPLEMENT Dec PLAN G [id number] [phone] CARLOS ROMANO PATIENT MEDICARE (WNR) MEDICARE (M) PART A Dec 16, 2014 PART A [id number] CARLOS ROMANO PATIENT MEDICARE (WNR) MEDICARE (M) PART B Dec 16, 2014 PART B [id number] [phone] CARLOS ROMANO PATIENT MEDICO DENTAL INSURANCE DENTAL VISIONHEARING Dec 16, 2014 DENTAL VISIONHEAR [id number] [phone] CARLOS ROMANO PATIENT Selected Encounter This section includes the information on record at [facility] for [facility] Encounter. Date/Time Encounter Type Encounter Description Reason Provider Source Dec 24, 2018 08:28 PM Outpatient Encounter ADMIN PAT ACTIVTIES (MASNO [...] 2019 09:45 AM AMBULATORY - MEDICINE [facility] Apr 09, 2019 01:30 PM AMBULATORY - MEDICINE [facility]t [facility] Apr 24, 2019 09:30 AM AMBULATORY - MEDICINE [facility] May 29, 2019 09:00 AM [...] to adverse reactions to drug (disorder) Eruption [facility] [place] Jul 17, 2012 Propensity to adverse reactions to drug (disorder) Peripheral edema [facility] Medications: [facility] dispensed (-15 months) and Non-VA Documented (Obtained Outside V A) Section Date Range: 1) prescriptions processed by a [place] pharmacy in the last 15 m [facility], and 2) all medications [...] FOR INHALATION ONCE 1 Nov 16, 2018 [id number] October 17, 2018 KJ POTTER [facility] ALBUTEROL SO4 90MCG/ACTUAT (CFC-F) INHL,ORAL,6.7GM Active INHALE 2 PUFFS BY ORAL INHALATION FOUR TIMES A DAY NEEDED - RINSE MOUTHPIECE FREQUENTLY TO PREVENT CLOGGING Apr 24, 2020 [id number] October 18, 2019 KJ POTTER [facility] ALBUTEROL SO4 90MCG/ACTUAT (CFC-F) INHL,ORAL,6.7GM Discontin ued INHALE 2 PUFFS BY ORAL INHALATION FOUR TIMES A DAY NEEDED - RINSE MOUTHPIECE FREQUENTLY TO PREVENT CLOGGING Apr 24, 2020 [id number] Apr 24, 2019 KJ POTTERT [facility] 160MCG/FORMOTEROL FUM 4.5MCG/SPRAY INHL,ORAL,10.2 GM Active INHALE 2 PUFFS BY ORAL INHALATION TWO TIMES A DAY FOR BREATHING. SHAKE WELL. RINSE MOUTH AND SPIT AFTER EACH USE. 2 Apr 24, 2020 [id number] October 17, 2019 KJ JOSHI [facility] CALCIUM 500MG (CA CARBONATE-1.25GM) TAB Active: Susp TAKE ONE TABLET BY MOUTH TWO TIMES A DAY 180 Nov 20, 2020 [id number] Jan 09, 2020 TARIQKJ [facility] CALCIUM 500MG (CA CARBONATE-1.25GM) TAB Discontinued TAKE ONE TABLET BY MOUTH TWO TIMES A DAY 180 Jan 08, 2020 [id number] October 21, 2019 TARIQKJ [facility] [place] CALCIUM 500MG (CA CARBONATE-1.25GM) TAB Discontinued TAKE ONE TABLET BY MOUTH TWO TIMES A DAY 180 Dec 29, 2018 [id number] Oct 01, 2018 [facility] CARBIDOPA 25MG/LEVODOPA 100MG TAB Active TAKE 2 TABLETS BY MOUTH FOUR TIMES A DAY FOR PARKINSON'S DISEASE. DO NOT TAKE WITH FOOD. 240 Nov 24, 2020 [id number] Nov 27, 2019 [facility] [place] CARBIDOPA 25MG/LEVODOPA 100MG TAB Discontinued TAKE T WO TABLETS BY MOUTH FIVE TIMES DAILY FOR PARKINSON'S DISEASE. DO NOT TAKE WITH FOOD. 600 Jul 02, 2020 [id number] Nov 19, 2019 [facility] [place] [facility] CARBIDOPA 25MG/LEVODOPA 100MG TAB Discontinued TAKE 2 TABLETS BY MOUTH FIVE TIMES DAILY FOR PARKINSON'S DISEASE. DO NOT TAKE WITH FOOD. 300 Jun 30, 2020 [id number] Jul 01, 2019 [facility] [place] CARBIDOPA 25MG/LEVODOPA 100MG TAB Discontinued TAKE 2 TABLETS BY MOUTH FOUR TIMES A DAY FOR PARKINSON'S DISEASE. DO NOT TAKE WITH FOOD. 240 Jun 24, 2020 [id number] Jun 26, 2019 [facility] [place] CARBIDOPA 25MG/LEVODOPA 100MG TAB Discontinued TAKE 2 TABLETS BY MOUTH FOUR TIMES A DAY FOR PARKINSON'S DISEASE. DO NOT TAKE WITH FOOD. 240 Dec 25, 2019 [id number] May 15, 2019 [facility] [place] CARBIDOPA 25MG/LEVODOPA 100MG TAB Discontinued TAKE 2 TABLETS BY MOUTH FOUR TIMES A DAY FOR PARKINSON'S DISEASE. DO NOT TAKE WITH FOOD. 240 Jun 07, 2019 [id number] Nov 18, 2018 ALLEGRA HOWE [facility] [place] CHOLECALCIFEROL 25MCG (1,000UNIT) TAB Active: Susp TA KE TWO TABLETS BY MOUTH ONCE A DAY FOR VITAMIN D DEFICIENCY 200 Nov 20, 2020 [id number] Dec 172019 [facility] CHOLECALCIFEROL 25MCG (1,000UNIT) TAB Discontinued TA KE TWO TABLETS BY MOUTH ONCE A DAY FOR VITAMIN D DEFICIENCY 200 Dec 25, 2019 [id number] October [facility] [place] CHOLECALCIFEROL 25MCG (1,000UNIT) TAB Discontinued TA KE TWO TABLETS BY MOUTH ONCE A DAY FOR VITAMIN D DEFICIENCY 200 Oct 10, 2018 [id number] Aug 172018 [facility] CLOPIDOGREL BISULFATE 75MG TAB Active: Susp TAKE ONE TABLET BY MOUTH ONCE A DAY TO PREVENT BLOOD CLOTS 90 Apr 24, 2020 [id number] Dec 19, 2019 [facility] CLOPIDOGREL BISULFATE 75MG TAB Discontinued TAKE ONE TABLET BY MOUTH ONCE A DAY TO PREVENT BLOOD CLOTS 90 Jun 01, 2019 [id number] Mar 13, 2019 KIT [facility] [place] DIPHENHYDRAMINE HCL 25MG CAP Non-VA TAKE 1 CAPSULE BY MOUTH EVERY 6 HOURS NEEDED Non-VA Documented by: KJ POTTER nted at: [facility] FLUDROCORTISONE ACETATE 0.1MG TAB Active TAKE ONE TABLET BY M OUTH ONCE A DAY 90 Nov 19, 2020 [id number] Nov 20, 2019 [facility] [place] FOLIC ACID 1MG TAB Non- [facility] TAKE ONE TABLET BY MOUTH ONCE A DAY N on-VA Documented by: KJ POTTER nted at: [facility] GABAPENTIN 300MG CAP Active TAKE 1 CAPSULE BY M OUTH 5 TIMES A DAY FOR PAIN AND TREMORS. 300 October 17, 2020 [id number] October 18, 2019 [facility] GABAPENTIN 300MG CAP Discontinued TAKE ONE CAPSULE BY MOUTH FOUR TIMES A DAY FOR PAIN AND TREMORS. 240 Jan 08, 2020 [id number] Oct 14, 2019 [facility] [place] GABAPENTIN 300MG CAP Discontinued TAKE ONE CAPSULE BY MOUTH FOUR TIMES A DAY FOR PAIN AND TREMORS. 240 Mar 08, 2019 [id number] Jan 07, 2019 [facility] [place] HYDROCODONE 10MG/ACETAMINOPHEN 325MG TAB Active TAKE ONE TABLET (10/325MG) BY MOUTH THREE TIMES A DAY NEEDED FOR PAIN CAUTION: DO NOT EXCEED 4000MG/DAY TOTAL OF ACETAMINOPHEN (APAP) FROM ALL MEDS 90 Dec 20, 2019 [id number] Nov 21, 2019 TARIQKJ SMITH [facility] HYDROCODONE 10MG/ACETAMINOPHEN 325MG TAB Discontinued TAKE ONE TABLET (10/325MG) BY MOUTH THREE TIMES A DAY NEEDED FOR PAIN CAUTION: DO NOT EXCEED 4000MG/DAY TOTAL OF ACETAMINOPHEN (APAP) FROM ALL MEDS 90 Sep 17, 020 [id number] Sep 04, 2019 [facility] [place] HYDROCODONE 10MG/ACETAMINOPHEN 325MG TAB Discontinued TAKE ONE TABLET BY MOUTH THREE TIMES A DAY NEEDED FOR PAIN CAUTION: DO NOT EXCEED 4000MG/DAY TOTAL OF ACETAMINOPHEN (APAP) FROM ALL MEDS 90 Jul 26, 2019 [id number] Jun 26, 2019 TARIQ,[facility] [place] HYDROCODONE 10MG/ACETAMINOPHEN 325MG TAB Discontinued TAKE ONE TABLET BY MOUTH THREE TIMES A DAY NEEDED FOR PAIN CAUTION: DO NOT EXCEED 4000MG/DAY TOTAL OF ACETAMINOPHEN (APAP) FROM ALL MEDS 90 Jun 27, 2019 [id number] May 29, 2019 TARIQ,[facility] [place] HYDROCODONE 10MG/ACETAMINOPHEN 325MG TAB Discontinued TAKE ONE TABLET BY MOUTH THREE TIMES A DAY NEEDED FOR PAIN CAUTION: DO NOT EXCEED 4000MG/DAY TOTAL OF ACETAMINOPHEN (APAP) FROM ALL MEDS 90 May 08, 2019 [id number] Apr 08, 2019 TARIQ,[facility] [place] HYDROCODONE 10MG/ACETAMINOPHEN 325MG TAB Discontinued TAKE ONE TABLET BY MOUTH THREE TIMES A DAY NEEDED FOR PAIN CAUTION: DO NOT EXCEED 4000MG/DAY TOTAL OF ACETAMINOPHEN (APAP) FROM ALL MEDS 90 Mar 28, 2019 [id number] Feb 26, 2019 [facility] [place] HYDROCODONE 10MG/ACETAMINOPHEN 325MG TAB Discontinued TAKE ONE TABLET BY MOUTH THREE TIMES A DAY NEEDED FOR PAIN CAUTION: DO NOT EXCEED 4000MG/DAY TOTAL OF ACETAMINOPHEN (APAP) FROM ALL MEDS 90 Feb 06, 2019 [id number] Jan 07, 2019 [facility] [place] HYDROCODONE 10MG/ACETAMINOPHEN 325MG TAB Discontinued TAKE ONE TABLET BY MOUTH THREE TIMES A DAY NEEDED FOR PAIN CAUTION: DO NOT EXCEED 4000MG/DAY TOTAL OF ACETAMINOPHEN (APAP) FROM ALL MEDS 90 Dec 05, 2018 [id number] November 05, 2018 [facility] [place] HYDROCODONE 10MG/ACETAMINOPHEN 325MG TAB Discontinued TAKE ONE TABLET BY MOUTH THREE TIMES A DAY NEEDED FOR PAIN CAUTION: DO NOT EXCEED 4000MG/DAY TOTAL OF ACETAMINOPHEN (APAP) FROM ALL MEDS 90 October 25, 2018 [id number] Sep 25, 2018 [facility] [place] HYDROCODONE 10MG/ACETAMINOPHEN 325MG TAB TAKE ONE TABLET (10/325MG) BY MOUTH THREE TIMES A DAY NEEDED FOR PAIN CAUTION: DO NOT EXCEED 4000MG/DAY TOTAL OF ACETAMINOPHEN (APAP) FROM ALL MEDS 90 November 16, 2019 [id number] October 18, 2019 [facility] METHOTREXATE NA 2.5MG TAB Active TAKE SEVEN TABLETS BY MOUTH EVERY WEEK 90 October 17, 2020 [id number] November 04, 2019 [facility] METHOTREXATE NA 2.5MG TAB Discontinued TAKE SEVEN TABLETS BY MOUTH EVERY WEEK 90 May 09, 2020 [id number] Aug 16, 2019 NASH KULKARNI [facility] METHOTREXATE NA 2.5MG TAB Discontinued TAKE SEVEN TABLETS BY MOUTH EVERY WEEK 90 Aug 04, 2019 [id number] Feb 22, 2019 YOU GOMEZ [facility] [place] NORTRIPTYLINE HCL 10MG CAP Active TAKE 2 CAPSULES BY MO UTH AT BEDTIME NEEDED 120 Apr 02, 2020 [id number] Nov 20, 2019 [facility] [place] NORTRIPTYLINE HCL 10MG CAP Discontinued TAKE 2 CAPSUL ES BY MOUTH AT BEDTIME NEEDED 120 Mar 20, 2019 [id number] Jan 23, 2019 [facility] OMEPRAZOLE 20MG CAP,EC Active TAKE 1 CAPSULE BY MOUTH EVERY MORNING TO LOWER STOMACH ACID. TAKE 30 MINUTES PRIOR TO FOOD. 90 October 17, 2020 [id number] October 21, 2019 [facility] OMEPRAZOLE 20MG CAP,EC Discontinued TAKE 1 CAPSULE BY MOUTH EVERY MORNING TO LOWER STOMACH ACID. TAKE 30 MINUTES PRIOR TO FOOD. 90 Oct 02, 2019 [id number] Aug 02, 2019 [facility] [place] PREDNISONE 1MG TAB Discontinued TAKE THREE TABLETS B Y MOUTH ONCE A DAY FOR INFLAMMATION AND IMMUNE RESPONSE. TAKE WITH FOOD OR MILK. 270 Fe 2019 [id number] Apr 24, 2019 [facility] PREDNISONE 1MG TAB Discontinued TAKE FOUR TABLETS BY MOUTH ONCE A D AY 360 Apr 22, 2019 [id number] Jan 24, 2019 [facility] [place] PREDNISONE 1MG TAB Discontinued TAKE FOUR TABLETS BY MOUTH ONCE A D AY 360 Dec 29, 2018 [id number] Oct 01, 2018 NASH KULKARNI [facility] PREDNISONE 1MG TAB TAKE THREE TABLETS B Y MOUTH ONCE A DAY FOR INFLAMMATION AND IMMUNE RESPONSE. TAKE WITH FOOD OR MILK. 270 Ap r 2019 [id number] Jul 13, 2019 [facility] [place] PREDNISONE 5MG TAB Discontinued TAKE ONE TABLET BY MOUTH ONCE A DAY WITH FOOD 60 Aug 01, 2019 [id number] Sep 25, 2018 [facility] [place] ROPINIROLE HCL 1MG TAB Active TAKE ONE TABLET BY MOUTH AT BED TIME 90 October 17, 2020 [id number] Nov 25, 2019 [facility] ROPINIROLE HCL 1MG TAB Discontinued TAKE ONE TABLET BY MOUTH AT BED TIME 90 Dec 05, 2019 [id number] Sep 03, 2019 KRYSTAL DEJESUS [facility] [place] ROPINIROLE HCL 1MG TAB Discontinued TAKE ONE TABLET BY MOUTH AT BED TIME 90 Dec 13, 2018 [id number] Sep 12, 2018 [facility] [place] [facility] TAMSULOSIN HCL 0.4MG CAP Active: Susp TAKE 1 CAPSULE BY MOUTH ONCE A DAY FOR PROSTATE. TAKE AT THE SAME TIME EACH DAY WITH FOOD. 90 Sep 30 1 [id number] Dec 20, 2019 KJ POTTER [facility] [place] TAMSULOSIN HCL 0.4MG CAP Discontinued TAKE 1 CAPSULE BY MOUTH ONCE A DAY FOR PROSTATE. TAKE AT THE SAME TIME EACH DAY WITH FOOD. 90 Sep 12 0 [id number] Jun 24, 2019 LIS BRUCE [facility] [...] ent(s) Provider Source Abnormal radiologic density Active 89004546 KJ HWANG [facility] [place] Allergic rhinitis Active 47420594 LADY SALAZAR [facility] [place] Anemia Active 974327361 [facility] [place] Chest pain (SNOMED CT 51912992) Active 786.50 KJ POTTER [facility] [place] Chondrocalcinosis Active 484180506 JASONYOU [facility] [place] Chronic obstructive lung disease Active 96261593 [facility] [place] Coronary artery disease Active 72070361 Angella LINDSEY Toshia [facility] [place] Cough Active 88543608 LADY SALAZAR [employer] Angella Love [facility] [place] Cough (SNOMED CT 53815833) Active 786.2 MIGUEL A SHELDONKJ Ortega [facility] [place] Dysarthria (SNOMED CT 2806964) Active 784.51 M CORRINEJESSEKJ Ortega [facility] [place] Dyspnea (SNOMED CT 180234620) Active 786.09 KJ BARKSDALE [facility] [place] Eruption due to drug Active 42216172 Abdiaziz POTTER [facility] [place] Gastroesophageal reflux disease Active 610998589 KJ POTTER [facility] [place] Hallux valgus AND bunion Active 863289401 DEISY GERMAIN Royce [facility] [place] Joint pain (SNOMED CT 84909498) Active 719.40 DEISY CONTRERAS [facility] [place] Joint swelling (SNOMED CT 607360660) Active 719.00 KJ POTTER [facility] [place] Knee pain Active 76269675 JENNIFER LINDSEY [facility] [place] Muscle weakness (SNOMED CT 06664258) Active 728.87 KJ POTTER [facility] [place] Neuropathy Active 410611156 KJ POTTER RN [facility] [place] Osteoarthritis Active 715.36 DYAN SERVIN [facility] [place] Parkinson's disease Active 92319494 TARIQETHAN [facility] [place] Peripheral Neuropathy Active 356.9 DASARAJU,P URUSHOTHAMA V [facility] [place] [facility] Personal History of Exposure to Agent [place] Active V15.89 DEISY CONTRERAS [facility] [place] [facility] Polyp of colon (SNOMED CT 51083685) Active 211.3 TARIQKJ SMITH [facility] [place] Restless legs Active 14068500 PATRICK WHITE [facility] [place] Rheumatoid arthritis Active 51160319 Abdiaziz POTTER [facility] [place] Screening, Malignancy Active V76.89 LISSETH TOLEDO [facility] [place] Sleep apnea Active 32452376 KJ POTTER RN [facility] [place] Synovial cyst of popliteal space (SNOMED CT 87168547) Active 727.51 KJ POTTER [facility] [place] [facility] Tobacco dependence in remission Active 405754916 KJ POTTER [facility] [place] Tobacco use Active 892517110 JENNIFER LINDSEY [facility] [place] Tremor Active 54366456 JENNIFER LINDSEY [facility] [place] Unresolved Active 93864061 JENNIFER LINDSEY [facility] [place] Unresolved Active 52885242 JENNIFER LINDSEY [facility] [place] Radiology Reports: +/- 30 days of the encounter No Data Provided for This Section Pathology Reports: +/- 30 days of the encounter No Data Provided for This Section Encounter Notes: All associated encounter notes This section contains the clinical notes associated to the Encounter. Date/Time Encounter Note(s) Provider Source Dec 24, 2018 08:31 PM ADMINISTRATIVE NOTE: LOCAL TITLE: EK-NOTIFICATION OF TEST RESULTS BY LETTER STANDARD TITLE: ADMINISTRATIVE NOTE DATE OF NOTE: DEC 24, 2018@20:31 ENTRY DATE: DEC 24, 2018@20:31:42 AUTHOR: KJ POTTER COSIGNER: URGENCY: STATUS: COMPLETED DEC 24, 2018 CARLOS ROMANO [address] [place], [place], [address] Dear Mr. ROMANO, I wanted to update you on your EMG study completed with Dr Howe on 06/06/18 at [place], [place]. We were able to obtain that report. This is a summary of the findings: EMG FINDINGS: There is electrophysiological evidence of: [...] mild to moderate bilateral cubital tunnel syndrome. Please contact the [facility] if you change your mind and want a referral for further evaluation of carpal tunnel syndrome. If you have any further questions, please call our [facility] Outreach clinic at or , ext [phone] or choose Option #4 to speak to the Nurse Agricultural Lender. Sincerely, SAFIA Ulloa /sofya/ KJ BAIG Signed: 12/24/2018 20:35 Receipt Acknowledged By: 12/25/2018 07:37 /sofya/ MARTIN SHULTZ medical researcher KJ POTTER [facility]
--- OUTSIDE RECORDS SUMMARY | 2019-12-04 22:07 | XMS REPORT | Encounter Summary ---
Author Author [facility] CARLOS sweeney Organization Department of [facility] Address [address] [place] [id number] Phone Unavailable Care Team Providers Care Cytology Teacher Name Role Phone TARIQKOURTNEY PCP Unavailable Insurance [...] PLAN G MEDICARE SUPPLEMENT Dec PLAN G [id number] [phone] ROSALINACARLOS PATIENT MEDICARE (WNR) MEDICARE (M) PART A Dec 16, 2014 PART A [id number] ROSALINACARLOS PATIENT MEDICARE (WNR) MEDICARE (M) PART B Dec 16, 2014 PART B [id number] [phone] CARLOS ROMANO PATIENT MEDICO DENTAL INSURANCE DENTAL VISIONHEARING Dec 16, 2014 DENTAL VISIONHEAR [id number] [phone] CARLOS ROMANO PATIENT Selected Encounter This section includes the information on record at [place] for the Encounter. Date/Time Encounter Type Encounter Description Reason Provider Source Dec 24, 2018 01:41 PM Outpatient Encounter PRIMARY CARE/MEDICINE JENNIFER LINDSEY [facility], VISN 15 IHE Encounter Template Text not used by [place] Assessments - Encounter Diagnoses No Data Provided for This Section Plan of Treatment: Future Appointments (+ 6 months) and Future Tests (+/- 45 day s) The Plan of Treatment section includes future care activities for the patient fr om all [place] treatment facilities. This section includes future appointments and fu ture orders which are active, pending or scheduled. Future Appointments This section includes appointments that were scheduled t o occur 6 months from the date of the Encounter, up to a maximum of 20 appointme nts. The data comes from all [place] treatment facilities. Appointment Date/Time Appointment Type Appointment Facili ty Name Apr 02, 2019 09:45 AM AMBULATORY - MEDICINE [facility] Apr 09, 2019 01:30 PM AMBULATORY - MEDICINE [facility] Apr 24, 2019 09:30 AM AMBULATORY - MEDICINE [facility] May 29, 2019 09:00 AM AMBULATORY - NONE [facility] [place] [facility] Surgical Procedures: All [...] patient. The data comes from a ll [place] treatment facilities. It does not list Allergies/ADRs that were removed or entered in error. Some allergies/ADRs may be reported in t he Immunization section. Allergen Event Date Event Type Reaction(s) Severity Source PANTOPRAZOLE Oct 01, 2018 Propensity to adverse reactions to drug (disorder) Eruption [facility] PENICILLIN Jul 17, 2012 Propensity to adverse reactions to drug (disorder) Peripheral edema [facility] Medications: VA dispensed (-15 months) and Non-VA Documented (Obtained Outside V A) Section Date Range: 1) prescriptions processed by a [place] pharmacy in the last 15 m [facility], and 2) all medications recorded in the [place] medical record as "non-VA medic ations". Pharmacy terms refer to [place] pharmacy's work on prescriptions. [place] patient s are advised to take their medications as instructed by their health care team. The data comes from all [place] treatment facilities. Glossary of Pharmacy Terms:Active = A prescription that can be filled at the local [place] pharmacy.Active: On Hold = An active prescription that will not be filled until pharmacy resolves the issue.Active: Susp = An active prescription that is not scheduled to be filled yet.Clinic Order = A medication received during a visit to a [place] clinic or emergency department (currently not available).Discontinued [...] may be a prescription from either the [place] or other providers that was filled outside the [place]. Or, it may be an over the [...] FOR INHALATION ONCE 1 Nov 16, 2018 [id number] October 17, 2018 KOURTNEY POTTER [facility] ALBUTEROL SO4 90MCG/ACTUAT (CFC-F) INHL,ORAL,6.7GM Active INHALE 2 PUFFS BY ORAL INHALATION FOUR TIMES A DAY NEEDED - RINSE MOUTHPIECE FREQUENTLY TO PREVENT CLOGGING 1 Apr 24, 2020 [id number] October 18, [address] [facility] ALBUTEROL SO4 90MCG/ACTUAT (CFC-F) INHL,ORAL,6.7GM Discontin ued INHALE 2 PUFFS BY ORAL INHALATION FOUR TIMES A DAY NEEDED - RINSE MOUTHPIECE FREQUENTLY TO PREVENT CLOGGING 2 Apr 24, 2020 [id number] Apr 24, 2019 KOURTNEY [facility]TERT [facility] BUDESONIDE 160MCG/FORMOTEROL FUM 4.5MCG/SPRAY INHL,ORAL,10.2 GM Active INHALE 2 PUFFS BY ORAL INHALATION TWO TIMES A DAY FOR BREATHING. SHAKE WELL. RINSE MOUTH AND SPIT AFTER EACH USE. 2 Apr 24, 2020 [id number] October 17, 2019 KOURTNEY JOSHI [facility] CALCIUM 500MG (CA CARBONATE-1.25GM) TAB Active: Susp TAKE ONE TABLET BY MOUTH TWO TIMES A DAY 180 Nov 20, 2020 [id number] Jan 09, 2020 [facility]NEY [facility]TER [facility] CALCIUM 500MG (CA CARBONATE-1.25GM) TAB Discontinued TAKE ONE TABLET BY MOUTH TWO TIMES A DAY 180 Jan 08, 2020 [id number] October 21, 2019 KOURTNEY POTTER [facility] [place] CALCIUM 500MG (CA CARBONATE-1.25GM) TAB Discontinued TAKE ONE TABLET BY MOUTH TWO TIMES A DAY 180 Dec 29, 2018 [id number] Oct 01, 2018 [facility] CARBIDOPA 25MG/LEVODOPA 100MG TAB Active TAKE 2 TABLETS BY MOUTH FOUR TIMES A DAY FOR PARKINSON'S DISEASE. DO NOT TAKE WITH FOOD. 240 Nov 24, 2020 [id number] Nov 27, 2019 [facility] [place] [facility] CARBIDOPA 25MG/LEVODOPA 100MG TAB Discontinued TAKE T WO TABLETS BY MOUTH FIVE TIMES DAILY FOR PARKINSON'S DISEASE. DO NOT TAKE WITH FOOD. 600 Jul 02, 2020 [id number] Nov 19, [facility] [place] [facility] CARBIDOPA 25MG/LEVODOPA 100MG TAB Discontinued TAKE 2 TABLETS BY MOUTH FIVE TIMES DAILY FOR PARKINSON'S DISEASE. DO NOT TAKE WITH FOOD. 300 Jun 30, 2020 [id number] Jul 01, 2019 [facility] [place] [facility] CARBIDOPA 25MG/LEVODOPA 100MG TAB Discontinued TAKE 2 TABLETS BY MOUTH FOUR TIMES A DAY FOR PARKINSON'S DISEASE. DO NOT TAKE WITH FOOD. 240 Jun 24, 2020 [id number] Jun 26, 2019 [facility] [place] [facility] CARBIDOPA 25MG/LEVODOPA 100MG TAB Discontinued TAKE 2 TABLETS BY MOUTH FOUR TIMES A DAY FOR PARKINSON'S DISEASE. DO NOT TAKE WITH FOOD. 240 Dec 25, 2019 [id number] May 15, 2019 [facility] [place] [facility] CARBIDOPA 25MG/LEVODOPA 100MG TAB Discontinued TAKE 2 TABLETS BY MOUTH FOUR TIMES A DAY FOR PARKINSON'S DISEASE. DO NOT TAKE WITH FOOD. 240 Jun 07, 2019 [id number] Nov 18, 2018 ALLEGRA HOWE [facility] [place] [facility] CHOLECALCIFEROL 25MCG (1,000UNIT) TAB Active: Susp TA KE TWO TABLETS BY MOUTH ONCE A DAY FOR VITAMIN D DEFICIENCY 200 Nov 20, 2020 [id number] Dec 172019 [facility] CHOLECALCIFEROL 25MCG (1,000UNIT) TAB Discontinued TA KE TWO TABLETS BY MOUTH ONCE A DAY FOR VITAMIN D DEFICIENCY 200 Dec 25, 2019 [id number] October [facility] [place] [facility] CHOLECALCIFEROL 25MCG (1,000UNIT) TAB Discontinued TA KE TWO TABLETS BY MOUTH ONCE A DAY FOR VITAMIN D DEFICIENCY 200 Oct 10, 2018 [id number] Aug 172018 [facility] CLOPIDOGREL BISULFATE 75MG TAB Active: Susp TAKE ONE TABLET BY MOUTH ONCE A DAY TO PREVENT BLOOD CLOTS 90 Apr 24, 2020 [id number] Dec 19, 2019 [facility] CLOPIDOGREL BISULFATE 75MG TAB Discontinued TAKE ONE TABLET BY MOUTH ONCE A DAY TO PREVENT BLOOD CLOTS 90 Jun 01, 2019 [id number] Mar 13, 2019 [facility] [place] DIPHENHYDRAMINE HCL 25MG CAP Non-VA TAKE 1 CAPSULE BY MOUTH EVERY 6 HOURS NEEDED Non-VA Documented by: KOURTNEY POTTER nted at: [facility] FLUDROCORTISONE ACETATE 0.1MG TAB Active TAKE ONE TABLET BY M OUTH ONCE A DAY 90 Nov 19, 2020 [id number] Nov 20, 2019 [facility] [place] [facility] FOLIC ACID 1MG TAB Non- VA TAKE ONE TABLET BY MOUTH ONCE A DAY N on-VA Documented by: KOURTNEY POTTER nted at: [facility] GABAPENTIN 300MG CAP Active TAKE 1 CAPSULE BY M OUTH 5 TIMES A DAY FOR PAIN AND TREMORS. 300 October 17, 2020 [id number] October 18, 2019 [facility] GABAPENTIN 300MG CAP Discontinued TAKE ONE CAPSULE BY MOUTH FOUR TIMES A DAY FOR PAIN AND TREMORS. 240 Jan 08, 2020 [id number] Oct 14, 2019 [facility] [place] [facility] GABAPENTIN 300MG CAP Discontinued TAKE ONE CAPSULE BY MOUTH FOUR TIMES A DAY FOR PAIN AND TREMORS. 240 Mar 08, 2019 [id number] Jan 07, 2019 [facility] [place] [facility] HYDROCODONE 10MG/ACETAMINOPHEN 325MG TAB Active TAKE ONE TABLET (10/325MG) BY MOUTH THREE TIMES A DAY NEEDED FOR PAIN CAUTION: DO NOT EXCEED 4000MG/DAY TOTAL OF ACETAMINOPHEN (APAP) FROM ALL MEDS 90 Dec 20, 2019 [id number] Nov 21, 2019 KOURTNEY POTTER [facility] HYDROCODONE 10MG/ACETAMINOPHEN 325MG TAB Discontinued TAKE ONE TABLET (10/325MG) BY MOUTH THREE TIMES A DAY NEEDED FOR PAIN CAUTION: DO NOT EXCEED 4000MG/DAY TOTAL OF ACETAMINOPHEN (APAP) FROM ALL MEDS 90 Sep 17, 020 [id number] Sep 04, 2019 [facility] [place] [facility] HYDROCODONE 10MG/ACETAMINOPHEN 325MG TAB Discontinued TAKE ONE TABLET BY MOUTH THREE TIMES A DAY NEEDED FOR PAIN CAUTION: DO NOT EXCEED 4000MG/DAY TOTAL OF ACETAMINOPHEN (APAP) FROM ALL MEDS 90 Jul 26, 2019 [id number] Jun 26, 2019 [facility] [place] [facility] HYDROCODONE 10MG/ACETAMINOPHEN 325MG TAB Discontinued TAKE ONE TABLET BY MOUTH THREE TIMES A DAY NEEDED FOR PAIN CAUTION: DO NOT EXCEED 4000MG/DAY TOTAL OF ACETAMINOPHEN (APAP) FROM ALL MEDS 90 Jun 27, 2019 [id number] May 29, 2019 [facility] [place] [facility] HYDROCODONE 10MG/ACETAMINOPHEN 325MG TAB Discontinued TAKE ONE TABLET BY MOUTH THREE TIMES A DAY NEEDED FOR PAIN CAUTION: DO NOT EXCEED 4000MG/DAY TOTAL OF ACETAMINOPHEN (APAP) FROM ALL MEDS 90 May 08, 2019 [id number] Apr 08, 2019 [facility] [place] [facility] HYDROCODONE 10MG/ACETAMINOPHEN 325MG TAB Discontinued TAKE ONE TABLET BY MOUTH THREE TIMES A DAY NEEDED FOR PAIN CAUTION: DO NOT EXCEED 4000MG/DAY TOTAL OF ACETAMINOPHEN (APAP) FROM ALL MEDS 90 Mar 28, 2019 [id number] Feb 26, 2019 [facility] [place] [facility] HYDROCODONE 10MG/ACETAMINOPHEN 325MG TAB Discontinued TAKE ONE TABLET BY MOUTH THREE TIMES A DAY NEEDED FOR PAIN CAUTION: DO NOT EXCEED 4000MG/DAY TOTAL OF ACETAMINOPHEN (APAP) FROM ALL MEDS 90 Feb 06, 2019 [id number] Jan 07, 2019 [facility] [place] [facility] HYDROCODONE 10MG/ACETAMINOPHEN 325MG TAB Discontinued TAKE ONE TABLET BY MOUTH THREE TIMES A DAY NEEDED FOR PAIN CAUTION: DO NOT EXCEED 4000MG/DAY TOTAL OF ACETAMINOPHEN (APAP) FROM ALL MEDS 90 Dec 05, 2018 [id number] November 05, 2018 [facility] [place] [facility] HYDROCODONE 10MG/ACETAMINOPHEN 325MG TAB Discontinued TAKE ONE TABLET BY MOUTH THREE TIMES A DAY NEEDED FOR PAIN CAUTION: DO NOT EXCEED 4000MG/DAY TOTAL OF ACETAMINOPHEN (APAP) FROM ALL MEDS 90 October 25, 2018 [id number] Sep 25, 2018 [facility] [place] [facility] HYDROCODONE 10MG/ACETAMINOPHEN 325MG TAB TAKE ONE TABLET (10/325MG) BY MOUTH THREE TIMES A DAY NEEDED FOR PAIN CAUTION: DO NOT EXCEED 4000MG/DAY TOTAL OF ACETAMINOPHEN (APAP) FROM ALL MEDS 90 November 16, 2019 [id number] October 18, 2019 [facility] METHOTREXATE NA 2.5MG TAB Active TAKE SEVEN TABLETS BY MOUTH EVERY WEEK 90 October 17, 2020 [id number] November 04, 2019 [facility] METHOTREXATE NA 2.5MG TAB Discontinued TAKE SEVEN TABLETS BY MOUTH EVERY WEEK 90 May 09, 2020 [id number] Aug 16, 2019 NASH KULKARNI [facility] METHOTREXATE NA 2.5MG TAB Discontinued TAKE SEVEN TABLETS BY MOUTH EVERY WEEK 90 Aug 04, 2019 [id number] Feb 22, 2019 YOU GOMEZ [facility] [place] [facility] NORTRIPTYLINE HCL 10MG CAP Active TAKE 2 CAPSULES BY MO UTH AT BEDTIME NEEDED 120 Apr 02, 2020 [id number] Nov 20, 2019 [facility] [place] [facility] NORTRIPTYLINE HCL 10MG CAP Discontinued TAKE 2 CAPSUL ES BY MOUTH AT BEDTIME NEEDED 120 Mar 20, 2019 [id number] Jan 23, 2019 [facility] OMEPRAZOLE 20MG CAP,EC Active TAKE 1 CAPSULE BY MOUTH EVERY MORNING TO LOWER STOMACH ACID. TAKE 30 MINUTES PRIOR TO FOOD. 90 October 17, 2020 [id number] October 21, 2019 [facility] OMEPRAZOLE 20MG CAP,EC Discontinued TAKE 1 CAPSULE BY MOUTH EVERY MORNING TO LOWER STOMACH ACID. TAKE 30 MINUTES PRIOR TO FOOD. 90 Oct 02, 2019 [id number] Aug 02, 2019 [facility] [place] [facility] PREDNISONE 1MG TAB Discontinued TAKE THREE TABLETS B Y MOUTH ONCE A DAY FOR INFLAMMATION AND IMMUNE RESPONSE. TAKE WITH FOOD OR MILK. 270 Fe 2019 [id number] Apr 24, 2019 [facility] PREDNISONE 1MG TAB Discontinued TAKE FOUR TABLETS BY MOUTH ONCE A D AY 360 Apr 22, 2019 [id number] Jan 24, 2019 [facility] [place] [facility] PREDNISONE 1MG TAB Discontinued TAKE FOUR TABLETS BY MOUTH ONCE A D AY 360 Dec 29, 2018 [id number] Oct 01, 2018 NASH KULKARNI [facility] PREDNISONE 1MG TAB TAKE THREE TABLETS B Y MOUTH ONCE A DAY FOR INFLAMMATION AND IMMUNE RESPONSE. TAKE WITH FOOD OR MILK. 270 Ap r 2019 [id number] Jul 13, 2019 [facility] [place] [facility] PREDNISONE 5MG TAB Discontinued TAKE ONE TABLET BY MOUTH ONCE A DAY WITH FOOD 60 Aug 01, 2019 [id number] Sep 25, 2018 [facility] [place] [facility] ROPINIROLE HCL 1MG TAB Active TAKE ONE TABLET BY MOUTH AT BED TIME 90 October 17, 2020 [id number] Nov 25, 2019 [facility] ROPINIROLE HCL 1MG TAB Discontinued TAKE ONE TABLET BY MOUTH AT BED TIME 90 Dec 05, 2019 [id number] Sep 03, 2019 DEJESUSKRYSTAL Freed [facility] [place] [facility] ROPINIROLE HCL 1MG TAB Discontinued TAKE ONE TABLET BY MOUTH AT BED TIME 90 Dec 13, 2018 [id number] Sep 12, 2018 [facility] [place] [facility] TAMSULOSIN HCL 0.4MG CAP Active: Susp TAKE 1 CAPSULE BY MOUTH ONCE A DAY FOR PROSTATE. TAKE AT THE SAME TIME EACH DAY WITH FOOD. 90 Sep 30 1 [id number] Dec 20, 2019 [facility] [place] [facility] TAMSULOSIN HCL 0.4MG CAP Discontinued TAKE 1 CAPSULE BY MOUTH ONCE A DAY FOR PROSTATE. TAKE AT THE SAME TIME EACH DAY WITH FOOD. 90 Sep 12 0 [id number] Jun 24, 2019 LIS BRUCE [facility] [place] [facility] Problems (Conditions): All historical and current Section Date Range: From patient's date of to the date document was create d. This section includes a list of Problems (Conditions) know n to [place] for the patient. It includes both active and inacti ve problems (conditions). The data comes from all [place] treatment facilities. Problem Status Problem Code Date of Onset Date of Resolution Comm ent(s) Provider Source Abnormal radiologic density Active [id number] KOURTNEY HWANG [facility] [place] [facility] Allergic rhinitis Active 33956602 LADY SALAZAR [facility] [place] [facility] Anemia [facility]18023167 [facility] [place] [facility] Chest pain (SNOMED CT 06728018) Active 786.50 KOURTNEY POTTER [facility] [place] [facility] Chondrocalcinosis Active [id number] JASONYOU [facility] [place] [facility] Chronic obstructive lung disease Active 35831431 [facility] [place] [facility] Coronary artery disease Active 73046377 Angella LINDSEY Toshia [facility] [place] [facility] Cough Active 69216595 LADY SALAZAR S [facility] [place] Cough (SNOMED CT 54967431) Active 786.2 KOURTNEY BARRON [facility] [place] [facility] Dysarthria (SNOMED CT 5447984) Active 784.51 M KOURTNEY WONG [facility] [place] [facility] Dyspnea (SNOMED CT 468734339) Active 786.09 KOURTNEY BARKSDALE [facility] [place] [facility] Eruption due to drug Active 95420490 Abdiaziz POTTER [facility] [place] [facility] Gastroesophageal reflux disease Active 436774861 KOURTNEY POTTER [facility] [place] [facility] Hallux valgus AND bunion Active 569392694 DEISY GERMAIN Royce [facility] [place] [facility] Joint pain (SNOMED CT 31936988) Active 719.40 DEISY CONTRERAS [facility] [place] [facility] Joint swelling (SNOMED CT 072897617) Active 719.00 KOURTNEY POTTER [facility] [place] [facility] Knee pain Active 77266490 JENNIFER LINDSEY [facility] [place] [facility] Muscle weakness (SNOMED CT 91035430) Active 728.87 KOURTNEY POTTER [facility] [place] [facility] Neuropathy Active 175393163 KOURTNEY POTTER RN [facility] [place] Osteoarthritis Active 715.36 DYAN SERVIN [facility] [place] [facility] Parkinson's disease Active 16877466 TARIQETHAN CHUNG [facility] [place] [facility] Peripheral Neuropathy Active 356.9 DASARAJU,P URUSHOTHAMA V [facility] [place] [facility] Personal History of Exposure to Agent [place] Active V15.89 ANDRÉS CONTRERASAL Royce [facility] [place] [facility] Polyp of colon (SNOMED CT 67629285) Active 211.3 KOURTNEY POTTER [facility] [place] [facility] Restless legs Active 34938275 PATRICK WHITE [facility] [place] [facility] Rheumatoid arthritis Active 49618502 Abdiaziz POTTER [facility] [place] [facility] Screening, Malignancy Active V76.89 LISSETH TOLEDO [facility] [place] [facility] Sleep apnea Active 79013660 KOURTNEY POTTER RN [facility] [place] [facility] Synovial cyst of popliteal space (SNOMED CT 14069433) Active 727.51 KOURTNEY POTTER [facility] [place] [facility] Tobacco dependence in remission Active 519298402 KOURTNEY POTTER [facility] [place] [facility] Tobacco use Active 474831627 JENNIFER LINDSEY [facility] [place] [facility] Tremor Active 43451149 JENNIFER LINDSEY K S [facility] [place] [facility] Unresolved Active 03857854 JENNIFER LINDSEY [facility] [place] [facility] Unresolved Active 06508812 JENNIFER LINDSEY [facility] [place] [facility] Radiology Reports: +/- 30 days of the encounter No Data Provided for This Section Pathology Reports: +/- 30 days of the encounter No Data Provided for This Section Encounter Notes: All associated encounter notes This section contains the clinical notes associated to the Encounter. Date/Time Encounter Note(s) Provider Source Dec 24, 2018 01:41 PM PRIMARY CARE SECURE MESSAGIN G: [facility] TITLE: EK-PRIMARY CARE SECURE MESSAGING STANDARD TITLE: PRIMARY CARE SECURE MESSAGING DATE OF NOTE: DEC 24, 2018@13:41:17 ENTRY DATE: DEC 24, 2018@13:41:17 AUTHOR: JENNIFER LINDSEY EXP COSIGNER: URGENCY: STATUS: COMPLETED ------Original Message ------ Sent: 12/23/2018 11:03 AM From: CARLOS ROMANO To: [facility], Samantha Summers_Primary Care Subject: meds please re order CARBIDOPA 25/ LEVODOPA 100 MG CHOLECALCIFEROL thanks ------Original Message ------ Sent: 12/24/2018 02:41 PM From: JENNIFER LINDSEY To: CARLOS ROMANO Subject: meds to Kourtney /sofya/ JENNIFER LINDSEY LPN Signed: 12/24/2018 13:41 Receipt Acknowledged By: 12/24/2018 20:29 /sofya/ JENNIFER MARSH [facility]
--- OUTSIDE RECORDS SUMMARY | 2019-12-04 22:08 | XMS REPORT | Encounter Summary ---
Author Author [facility] CARLOS sweeney Organization Department of [facility] Address [address] [place] [id number] Phone Unavailable Care Team Providers Care Control Technician Name Role Phone TARIQKJ PCP Unavailable [...] PLAN G MEDICARE SUPPLEMENT Dec PLAN G [id number] [phone] ROSALINACARLOS PATIENT MEDICARE (WNR) MEDICARE (M) PART A Dec 16, 2014 PART A [id number] ROSALINACARLOS PATIENT MEDICARE (WNR) MEDICARE (M) PART B Dec 16, 2014 PART B [id number] CARLOS ROMANO PATIENT MEDICO DENTAL INSURANCE DENTAL VISIONHEARING Dec 16, 2014 DENTAL VISIONHEAR [id number] [phone] CARLOS ROMANO PATIENT Selected Encounter This section includes the information on record at ME for the Encounter. Date/Time Encounter Type Encounter Description Reason Provider Source Dec 04, 2018 02:27 PM Outpatient Encounter PRIMARY CARE/MEDICINE CASSIDY LINDSEY [facility], [facility] 15 IHE Encounter Template Text not used by ME Assessments - Encounter Diagnoses No Data Provided for This Section Plan of Treatment: Future Appointments (+ 6 months) and Future Tests (+/- 45 day s) The Plan of Treatment section includes future care activities for the patient fr om all [place] treatment facilities. This section includes future appointments and fu ture orders which are active, pending or scheduled. Future Appointments This section includes appointments that were scheduled t o occur 6 months from the date of the Encounter, up to a maximum of 20 appointme nts. The data comes from all ME treatment facilities. Appointment Date/Time Appointment Type Appointment Facili ty Name Apr 02, 2019 09:45 AM AMBULATORY - [facility]INE [facility] Apr 09, 2019 01:30 PM AMBULATORY - MEDICINE [facility] Apr 24, 2019 09:30 AM [facility] - [facility]INE [facility] May 29, 2019 09:00 AM AMBULATORY - NONE [facility] [place] Surgical Procedures: [...] patient. The data comes from a ll [place] treatment facilities. It does not list Allergies/ADRs that were removed or entered in error. Some allergies/ADRs may be reported in t he Immunization section. Allergen Event Date Event Type Reaction(s) Severity Source PANTOPRAZOLE Oct 01, 2018 Propensity to adverse reactions to drug (disorder) Eruption [facility] 15 PENICILLIN Jul 17, 2012 Propensity to adverse reactions to drug (disorder) Peripheral edema [facility] 15 Medications: VA dispensed (-15 months) and Non-VA Documented (Obtained Outside V A) Section Date Range: 1) prescriptions processed by a ME pharmacy in the last 15 m [facility], and 2) all medications recorded in the ME medical record as "non-VA medic ations". Pharmacy terms refer to ME pharmacy's work on prescriptions. VA patient s are advised to take their medications as instructed by their health care team. The data comes from all [place] treatment facilities. Glossary of Pharmacy Terms:Active = A prescription that can be filled at the local [place] pharmacy.Active: On Hold = An active prescription that will not be filled until pharmacy resolves the issue.Active: Susp = An active prescription that is not scheduled to be filled yet.Clinic Order = A medication received during a visit to a ME clinic or emergency department (currently not available).Discontinued [...] may be a prescription from either the ME or other providers that was filled outside the ME. Or, it may be an over the [...] FOR INHALATION ONCE 1 Nov 16, 2018 [id number] October 17, 2018 KJ DANIELSON [facility] ALBUTEROL SO4 90MCG/ACTUAT (CFC-F) INHL,ORAL,6.7GM Active INHALE 2 PUFFS BY ORAL INHALATION FOUR TIMES A DAY NEEDED - RINSE MOUTHPIECE FREQUENTLY TO PREVENT CLOGGING 1 Apr 24, 2020 [id number] October 18, 2019 KJ DANIELSON [facility] ALBUTEROL SO4 90MCG/ACTUAT (CFC-F) INHL,ORAL,6.7GM Discontin ued INHALE 2 PUFFS BY ORAL INHALATION FOUR TIMES A DAY NEEDED - RINSE MOUTHPIECE FREQUENTLY TO PREVENT CLOGGING 2 Apr 24, 2020 [id number] Apr 24, 2019 KJ DANIELSONT [facility] BUDESONIDE 160MCG/FORMOTEROL FUM 4.5MCG/SPRAY INHL,ORAL,10.2 GM Active INHALE 2 PUFFS BY ORAL INHALATION TWO TIMES A DAY FOR BREATHING. SHAKE WELL. RINSE MOUTH AND SPIT AFTER EACH USE. 2 Apr 24, 2020 [id number] October 17, 2019 KJ JOSHI [facility] CALCIUM 500MG (CA CARBONATE-1.25GM) TAB Active: Susp TAKE ONE TABLET BY MOUTH TWO TIMES A DAY 180 Nov 20, 2020 [id number] Jan 09, 2020 KJ DANIELSON [facility] CALCIUM 500MG (CA CARBONATE-1.25GM) TAB Discontinued TAKE ONE TABLET BY MOUTH TWO TIMES A DAY 180 Jan 08, 2020 [id number] October 21, 2019 KJ DANIELSON [facility] [place] CALCIUM 500MG (CA CARBONATE-1.25GM) TAB Discontinued TAKE ONE TABLET BY MOUTH TWO TIMES A DAY 180 Dec 29, 2018 [id number] Oct 01, 2018 [facility] CARBIDOPA 25MG/LEVODOPA 100MG TAB Active TAKE 2 TABLETS BY MOUTH FOUR TIMES A DAY FOR PARKINSON'S DISEASE. DO NOT TAKE WITH FOOD. 240 Nov 24, 2020 [id number] Nov 27, 2019 [facility] [place] CARBIDOPA 25MG/LEVODOPA 100MG TAB Discontinued TAKE T WO TABLETS BY MOUTH FIVE TIMES DAILY FOR PARKINSON'S DISEASE. DO NOT TAKE WITH FOOD. 600 Jul 02, 2020 [id number] Nov 19, 2019 [facility] [place] [facility] CARBIDOPA 25MG/LEVODOPA 100MG TAB Discontinued TAKE 2 TABLETS BY MOUTH FIVE TIMES DAILY FOR PARKINSON'S DISEASE. DO NOT TAKE WITH FOOD. 300 Jun 30, 2020 [id number] Jul 01, 2019 [facility] [place] CARBIDOPA 25MG/LEVODOPA 100MG TAB Discontinued TAKE 2 TABLETS BY MOUTH FOUR TIMES A DAY FOR PARKINSON'S DISEASE. DO NOT TAKE WITH FOOD. 240 Jun 24, 2020 [id number] Jun 26, 2019 [facility] [place] [facility] CARBIDOPA 25MG/LEVODOPA 100MG TAB Discontinued TAKE 2 TABLETS BY MOUTH FOUR TIMES A DAY FOR PARKINSON'S DISEASE. DO NOT TAKE WITH FOOD. 240 Dec 25, 2019 [id number] May 15, 2019 [facility] [place] CARBIDOPA 25MG/LEVODOPA 100MG TAB Discontinued TAKE 2 TABLETS BY MOUTH FOUR TIMES A DAY FOR PARKINSON'S DISEASE. DO NOT TAKE WITH FOOD. 240 Jun 07, 2019 [id number] Nov 18, 2018 ALLEGRA HOWE [facility] [place] CHOLECALCIFEROL 25MCG (1,000UNIT) TAB Active: Susp TA KE TWO TABLETS BY MOUTH ONCE A DAY FOR VITAMIN D DEFICIENCY 200 Nov 20, 2020 [id number] Dec 172019 [facility] CHOLECALCIFEROL 25MCG (1,000UNIT) TAB Discontinued TA KE TWO TABLETS BY MOUTH ONCE A DAY FOR VITAMIN D DEFICIENCY 200 Dec 25, 2019 [id number] October [facility] [place] CHOLECALCIFEROL 25MCG (1,000UNIT) TAB Discontinued TA KE TWO TABLETS BY MOUTH ONCE A DAY FOR VITAMIN D DEFICIENCY 200 Oct 10, 2018 [id number] Aug 172018 [facility] CLOPIDOGREL BISULFATE 75MG TAB Active: Susp TAKE ONE TABLET BY MOUTH ONCE A DAY TO PREVENT BLOOD CLOTS 90 Apr 24, 2020 [id number] Dec 19, 2019 [facility] CLOPIDOGREL BISULFATE 75MG TAB Discontinued TAKE ONE TABLET BY MOUTH ONCE A DAY TO PREVENT BLOOD CLOTS 90 Jun 01, 2019 [id number] Mar 13, 2019 [facility] [place] DIPHENHYDRAMINE HCL 25MG CAP Non-VA TAKE 1 CAPSULE BY MOUTH EVERY 6 HOURS NEEDED Non-VA Documented by: KJ DANIELSON nted at: [facility] FLUDROCORTISONE ACETATE 0.1MG TAB Active TAKE ONE TABLET BY M OUTH ONCE A DAY 90 Nov 19, 2020 [id number] Nov 20, 2019 [facility] [place] FOLIC ACID 1MG TAB Non- VA TAKE ONE TABLET BY MOUTH ONCE A DAY N on-VA Documented by: KJ DANIELSON nted at: [facility] GABAPENTIN 300MG CAP Active TAKE 1 CAPSULE BY M OUTH 5 TIMES A DAY FOR PAIN AND TREMORS. 300 October 17, 2020 [id number] October 18, 2019 [facility] GABAPENTIN 300MG CAP Discontinued TAKE ONE CAPSULE BY MOUTH FOUR TIMES A DAY FOR PAIN AND TREMORS. 240 Jan 08, 2020 [id number] Oct 14, 2019 [facility] [place] GABAPENTIN 300MG CAP Discontinued TAKE ONE CAPSULE BY MOUTH FOUR TIMES A DAY FOR PAIN AND TREMORS. 240 Mar 08, 2019 [id number] Jan 07, 2019 [facility] [place] HYDROCODONE 10MG/ACETAMINOPHEN 325MG TAB Active TAKE ONE TABLET (10/325MG) BY MOUTH THREE TIMES A DAY NEEDED FOR PAIN CAUTION: DO NOT EXCEED 4000MG/DAY TOTAL OF ACETAMINOPHEN (APAP) FROM ALL MEDS 90 Dec 20, 2019 [id number] Nov 21, 2019 KJ DANIELSON [facility] HYDROCODONE 10MG/ACETAMINOPHEN 325MG TAB Discontinued TAKE ONE TABLET (10/325MG) BY MOUTH THREE TIMES A DAY NEEDED FOR PAIN CAUTION: DO NOT EXCEED 4000MG/DAY TOTAL OF ACETAMINOPHEN (APAP) FROM ALL MEDS 90 Sep 17, 020 [id number] Sep 04, [address] [facility] [place] HYDROCODONE 10MG/ACETAMINOPHEN 325MG TAB Discontinued TAKE ONE TABLET BY MOUTH THREE TIMES A DAY NEEDED FOR PAIN CAUTION: DO NOT EXCEED 4000MG/DAY TOTAL OF ACETAMINOPHEN (APAP) FROM ALL MEDS 90 Jul 26, 2019 [id number] Jun 26, [address] [facility] [place] HYDROCODONE 10MG/ACETAMINOPHEN 325MG TAB Discontinued TAKE ONE TABLET BY MOUTH THREE TIMES A DAY NEEDED FOR PAIN CAUTION: DO NOT EXCEED 4000MG/DAY TOTAL OF ACETAMINOPHEN (APAP) FROM ALL MEDS 90 Jun 27, 2019 [id number] May 29, 2019 [facility] [place] HYDROCODONE 10MG/ACETAMINOPHEN 325MG TAB Discontinued TAKE ONE TABLET BY MOUTH THREE TIMES A DAY NEEDED FOR PAIN CAUTION: DO NOT EXCEED 4000MG/DAY TOTAL OF ACETAMINOPHEN (APAP) FROM ALL MEDS 90 May 08, 2019 [id number] Apr 08, [address] [facility] [place] HYDROCODONE 10MG/ACETAMINOPHEN 325MG TAB Discontinued TAKE ONE TABLET BY MOUTH THREE TIMES A DAY NEEDED FOR PAIN CAUTION: DO NOT EXCEED 4000MG/DAY TOTAL OF ACETAMINOPHEN (APAP) FROM ALL MEDS 90 Mar 28, 2019 [id number] Feb 26, [address] [facility] [place] HYDROCODONE 10MG/ACETAMINOPHEN 325MG TAB Discontinued TAKE ONE TABLET BY MOUTH THREE TIMES A DAY NEEDED FOR PAIN CAUTION: DO NOT EXCEED 4000MG/DAY TOTAL OF ACETAMINOPHEN (APAP) FROM ALL MEDS 90 Feb 06, 2019 [id number] Jan 07, 2019 [facility] [place] HYDROCODONE 10MG/ACETAMINOPHEN 325MG TAB Discontinued TAKE ONE TABLET BY MOUTH THREE TIMES A DAY NEEDED FOR PAIN CAUTION: DO NOT EXCEED 4000MG/DAY TOTAL OF ACETAMINOPHEN (APAP) FROM ALL MEDS 90 Dec 05, 2018 [id number] November 05, 2018 [facility] [place] HYDROCODONE 10MG/ACETAMINOPHEN 325MG TAB Discontinued TAKE ONE TABLET BY MOUTH THREE TIMES A DAY NEEDED FOR PAIN CAUTION: DO NOT EXCEED 4000MG/DAY TOTAL OF ACETAMINOPHEN (APAP) FROM ALL MEDS 90 October 25, 2018 [id number] Sep 25, 2018 [facility] [place] HYDROCODONE 10MG/ACETAMINOPHEN 325MG TAB TAKE ONE TABLET (10/325MG) BY MOUTH THREE TIMES A DAY NEEDED FOR PAIN CAUTION: DO NOT EXCEED 4000MG/DAY TOTAL OF ACETAMINOPHEN (APAP) FROM ALL MEDS 90 November 16, 2019 [id number] October 18, 2019 [facility] METHOTREXATE NA 2.5MG TAB Active TAKE SEVEN TABLETS BY MOUTH EVERY WEEK 90 October 17, 2020 [id number] November 04, 2019 [facility] METHOTREXATE NA 2.5MG TAB Discontinued TAKE SEVEN TABLETS BY MOUTH EVERY WEEK 90 May 09, 2020 [id number] Aug 16, 2019 NASH KULKARNI [facility] METHOTREXATE NA 2.5MG TAB Discontinued TAKE SEVEN TABLETS BY MOUTH EVERY WEEK 90 Aug 04, 2019 [id number] Feb 22, 2019 YOU GOMEZ [facility] [place] NORTRIPTYLINE HCL 10MG CAP Active TAKE 2 CAPSULES BY MO UTH AT BEDTIME NEEDED 120 Apr 02, 2020 [id number] Nov 20, 2019 [facility] [place] NORTRIPTYLINE HCL 10MG CAP Discontinued TAKE 2 CAPSUL ES BY MOUTH AT BEDTIME NEEDED 120 Mar 20, 2019 [id number] Jan 23, 2019 [facility] OMEPRAZOLE 20MG CAP,EC Active TAKE 1 CAPSULE BY MOUTH EVERY MORNING TO LOWER STOMACH ACID. TAKE 30 MINUTES PRIOR TO FOOD. 90 October 17, 2020 [id number] October 21, 2019 [facility] OMEPRAZOLE 20MG CAP,EC Discontinued TAKE 1 CAPSULE BY MOUTH EVERY MORNING TO LOWER STOMACH ACID. TAKE 30 MINUTES PRIOR TO FOOD. 90 Oct 02, 2019 [id number] Aug 02, 2019 [facility] [place] PREDNISONE 1MG TAB Discontinued TAKE THREE TABLETS B Y MOUTH ONCE A DAY FOR INFLAMMATION AND IMMUNE RESPONSE. TAKE WITH FOOD OR MILK. 270 Fe 2019 [id number] Apr 24, 2019 [facility] PREDNISONE 1MG TAB Discontinued TAKE FOUR TABLETS BY MOUTH ONCE A D AY 360 Apr 22, 2019 [id number] Jan 24, 2019 [facility] [place] PREDNISONE 1MG TAB Discontinued TAKE FOUR TABLETS BY MOUTH ONCE A D AY 360 Dec 29, 2018 [id number] Oct 01, 2018 NASH KULKARNI V [facility] PREDNISONE 1MG TAB TAKE THREE TABLETS B Y MOUTH ONCE A DAY FOR INFLAMMATION AND IMMUNE RESPONSE. TAKE WITH FOOD OR MILK. 270 Ap r 2019 [id number] Jul 13, 2019 [facility] [place] PREDNISONE 5MG TAB Discontinued TAKE ONE TABLET BY MOUTH ONCE A DAY WITH FOOD 60 Aug 01, 2019 [id number] Sep 25, 2018 [facility] [place] ROPINIROLE HCL 1MG TAB Active TAKE ONE TABLET BY MOUTH AT BED TIME 90 October 17, 2020 [id number] Nov 25, 2019 [facility] ROPINIROLE HCL 1MG TAB Discontinued TAKE ONE TABLET BY MOUTH AT BED TIME 90 Dec 05, 2019 [id number] Sep 03, 2019 DEJESUSKRYSTAL Freed [facility] [place] ROPINIROLE HCL 1MG TAB Discontinued TAKE ONE TABLET BY MOUTH AT BED TIME 90 Dec 13, 2018 [id number] Sep 12, 2018 [facility] [place] TAMSULOSIN HCL 0.4MG CAP Active: Susp TAKE 1 CAPSULE BY MOUTH ONCE A DAY FOR PROSTATE. TAKE AT THE SAME TIME EACH DAY WITH FOOD. 90 Sep 30 1 [id number] Dec 20, 2019 [facility] [place] TAMSULOSIN HCL 0.4MG CAP Discontinued TAKE 1 CAPSULE BY MOUTH ONCE A DAY FOR PROSTATE. TAKE AT THE SAME TIME EACH DAY WITH FOOD. 90 Sep 12 0 [id number] Jun 24, 2019 LIS BRUCE [facility] [place] Problems (Conditions): All historical and current Section Date Range: From patient's date of to the date document was create d. This section includes a list of Problems (Conditions) know n to VA for the patient. It includes both active and inacti ve problems (conditions). The data comes from all [place] treatment facilities. Problem Status Problem Code Date of Onset Date of Resolution Comm ent(s) Provider Source Abnormal radiologic density Active [id number] KJ HWANG [facility] [place] Allergic rhinitis Active 74387524 LADY SALAZAR [facility] [place] [facility] Anemia Active 237924215 [facility] [place] [facility] Chest pain (SNOMED CT 38031795) Active 786.50 KJ DANIELSON [facility] [place] [facility] Chondrocalcinosis Active 083061553 JASONYOU [facility] [place] [facility] Chronic obstructive lung disease Active 02886197 [facility] [place] [facility] Coronary artery disease Active 83632568 Angella LINDSEY Toshia [facility] [place] [facility] Cough Active 77436340 LADY SALAZAR S [facility] [place] Cough (SNOMED CT 86275886) Active 786.2 KJ BARRON [facility] [place] [facility] Dysarthria (SNOMED CT 1631832) Active 784.51 M KJ WONG [facility] [place] Dyspnea (SNOMED CT 167563163) Active 786.09 KJ BARKSDALE [facility] [place] Eruption due to drug Active 15129227 Abdiaziz DANIELSON [facility] [place] [facility] Gastroesophageal reflux disease Active 756207896 KJ DANIELSON [facility] [place] [facility] Hallux valgus AND bunion Active 533306840 DEISY GERMAIN Royce [facility] [place] [facility] Joint pain (SNOMED CT 41681442) Active 719.40 DEISY CONTRERAS [facility] [place] Joint swelling (SNOMED CT 552233373) Active 719.00 KJ DANIELSON [facility] [place] [facility] Knee pain Active 13739639 CASSIDY LINDSEY [facility] [place] [facility] Muscle weakness (SNOMED CT 41486551) Active 728.87 KJ DANIELSON [facility] [place] [facility] Neuropathy Active 492524555 KJ DANIELSON RN [facility] [place] Osteoarthritis Active 715.36 DYAN SERVIN [facility] [place] [facility] Parkinson's disease Active 98693464 TARIQETHAN CHUNG [facility] [place] [facility] Peripheral Neuropathy Active 356.9 DASARAJU,P URUSHOTHAMA V [facility] [place] [facility] Personal History of Exposure to Agent Cayey Active V15.89 ANDRÉS CONTRERASAL Royce [facility] [place] [facility] Polyp of colon (SNOMED CT 02018773) Active 211.3 KJ DANIELSON [facility] [place] Restless legs Active 90905148 PATRICK WHITE [facility] [place] Rheumatoid arthritis Active 16856606 Abdiaziz DANIELSON [facility] [place] [facility] Screening, Malignancy Active V76.89 LISSETH TOLEDO [facility] [place] [facility] Sleep apnea Active 27229764 KJ DANIELSON RN [facility] [place] Synovial cyst of popliteal space (SNOMED CT 26776171) Active 727.51 KJ DANIELSON [facility] [place] [facility] Tobacco dependence in remission Active 717418267 KJ DANIELSON [facility] [place] [facility] Tobacco use Active 511459189 CASSIDY LINDSEY [facility] [place] Tremor Active 00474081 CASSIDY LINDSEY K S [facility] [place] Unresolved Active 69106022 CASSIDY LINDSEY [facility] [place] Unresolved Active 55974933 CASSIDY LINDSEY [facility] [place] Radiology Reports: +/- 30 days of the encounter No Data Provided for This Section Pathology Reports: +/- 30 days of the encounter No Data Provided for This Section Encounter Notes: All associated encounter notes This section contains the clinical notes associated to the Encounter. Date/Time Encounter Note(s) Provider Source Dec 04, 2018 02:27 PM PRIMARY CARE SECURE MESSAGIN G: LOCAL TITLE: EK-PRIMARY CARE SECURE MESSAGING STANDARD TITLE: PRIMARY CARE SECURE MESSAGING DATE OF NOTE: DEC 04, 2018@14:27:24 ENTRY DATE: DEC 04, 2018@14:27:25 AUTHOR: CASSIDY LINDSEY COSIGNER: URGENCY: STATUS: COMPLETED EK-PRIMARY CARE SECURE MESSAGING Has ADDENDA ------Original Message ------ Sent: 12/04/2018 12:43 PM From: CARLOS ROMANO To: [facility], t Samantha Danielson_Primary Care Subject: meds please re order [place] ------Original Message ------ Sent: 12/04/2018 03:27 PM From: CASSIDY LINDSEY To: CARLOS ROMANO Subject: meds Forwarding to covering provider rosaura /edil LINDSEY LPN Signed: 12/04/2018 14:27 Receipt Acknowledged By: 12/04/2018 15:13 /sofya/ KRYSTAL BROUSSARD 12/04/2018 16:28 /sofya/ KRYSTAL BROUSSARD for KJ DANIELSON 12/04/2018 ADDENDUM STATUS: COMPLETED Renewed. Mail out Thank Cassidy lea /sofya/ KRYSTAL BROUSSARD Signed: 12/04/2018 15:14 Receipt Acknowledged By: 12/04/2018 15:30 /edil SANDS LPN 12/04/2018 ADDENDUM STATUS: COMPLETED Renewed Mail out Thank Cassidy lea /sofya/ KRYSTAL DEJESUS PA Signed: 12/04/2018 16:29 Receipt Acknowledged By: 12/05/2018 07:26 /CASSIDY Samuel LPN [facility]
--- OUTSIDE RECORDS SUMMARY | 2019-12-04 22:15 | XMS REPORT | Continuity of Care Document ---
Author Organization Unknown Address Unknown Phone Unavailable Allergies Active Description Code Type Severity Reaction Onset Reported/Identified Relationship to Patient Clinical Status Yes pantoprazole [id number] Drug Allergy Unknown N/A 11/02/2018 Yes Penicillins [id number] Drug Aller gy Unknown N/A 11/02/2018 Medications There is no data. Problems Date Dx Coded Attending Type Code Diagnosis Diagnosed By 01/19/2017 KAREN BLISS MD, Ot M17.12 UNILATERAL PRIMARY OSTEOARTHRITIS, LEFT 01/25/2017 KAREN BLISS MD, Ot M17.12 UNILATERAL PRIMARY OSTEOARTHRITIS, LEFT 03/17/2017 KAREN BLISS MD, Ot M17.12 UNILATERAL PRIMARY OSTEOARTHRITIS, LEFT 11/02/2018 INDY DONIS MD Ot G20 PARKINSON'S DISEASE 11/02/2018 INDY DONIS MD Ot J44. 9 CHRONIC OBSTRUCTIVE PULMONARY DISEASE, U 11/02/2018 INDY DONIS MD Ot M25.461 EFFUSION, RIGHT KNEE 11/02/2018 INDY DONIS MD Ot M25.561 PAIN IN RIGHT KNEE 11/02/2018 INDY DONIS MD Ot W10.8XXA FALL (ON) (FROM) OTHER STAIRS AND STEPS, 11/02/2018 INDY DONIS MD Ot Z87.891 PERSONAL HISTORY OF NICOTINE DEPENDENCE 11/02/2018 INDY DONIS MD Ot Z88. 0 ALLERGY STATUS TO PENICILLIN 11/02/2018 INDY DONIS MD Ot Z88. 8 ALLERGY STATUS TO OTH DRUG/MEDS/BIOL SUB 11/02/2018 INDY DONIS MD Ot Z90. 49 ACQUIRED ABSENCE OF OTHER SPECIFIED PART 11/02/2018 INDY DONIS MD Ot Z98. 52 VASECTOMY STATUS 11/02/2018 INDY DONIS MD Ot Z98.890 OTHER SPECIFIED POSTPROCEDURAL STATES 11/05/2018 INDY DONIS MD Ot G20 PARKINSON'S DISEASE 11/05/2018 INDY DONIS MD Ot J44. 9 CHRONIC OBSTRUCTIVE PULMONARY DISEASE, U 11/05/2018 JEWELS ZACARIAS, INDY Love Ot M25.461 EFFUSION, RIGHT KNEE 11/05/2018 JEWELS ZACARIAS, INDY Love Ot M25.561 PAIN IN RIGHT KNEE 11/05/2018 JEWELS ZACARIAS, INDY Love Ot W10.8XXA FALL (ON) (FROM) OTHER STAIRS AND STEPS, 11/05/2018 JEWELS ZACARIAS, INDY Kate Ot Z87.891 PERSONAL HISTORY OF NICOTINE DEPENDENCE 11/05/2018 JEWELS ZACARIAS, INDY Kate Ot Z88. 0 ALLERGY STATUS TO PENICILLIN 11/05/2018 JEWELS ZACARIAS, INDY Kate Ot Z88. 8 ALLERGY STATUS TO OTH DRUG/MEDS/BIOL SUB 11/05/2018 JEWELS ZACARIAS INDY Kate Ot Z90. 49 ACQUIRED ABSENCE OF OTHER SPECIFIED PART 11/05/2018 INDY DONIS MD Ot Z98. 52 VASECTOMY STATUS 11/05/2018 JEWELS ZACARIAS INDY Kate Ot Z98.890 OTHER SPECIFIED POSTPROCEDURAL STATES 11/08/2018 INDY DONIS MD Ot G20 PARKINSON'S DISEASE 11/08/2018 JEWELS ZACARIAS, INDY Kate Ot J44. 9 CHRONIC OBSTRUCTIVE PULMONARY DISEASE, U 11/08/2018 JEWELS ZACARIAS INDY Kate Ot M25.461 EFFUSION, RIGHT KNEE 11/08/2018 JEWELS ZACARIAS, INDY Love Ot M25.561 PAIN IN RIGHT KNEE 11/08/2018 JEWELS ZACARIAS, INDY Love Ot W10.8XXA FALL (ON) (FROM) OTHER STAIRS AND STEPS, 11/08/2018 JEWELS ZACARIAS, INDY Kate Ot Z87.891 PERSONAL HISTORY OF NICOTINE DEPENDENCE 11/08/2018 JEWELS ZACARIAS, INDY Kate Ot Z88. 0 ALLERGY STATUS TO PENICILLIN 11/08/2018 JEWELS ZACARIAS, INDY Love Ot Z88. 8 ALLERGY STATUS TO OTH DRUG/MEDS/BIOL SUB 11/08/2018 INDY DONIS MD Ot Z90. 49 ACQUIRED ABSENCE OF OTHER SPECIFIED PART 11/08/2018 INDY DONIS MD Ot Z98. 52 VASECTOMY STATUS 11/08/2018 INDY DONIS MD Ot Z98.890 OTHER SPECIFIED POSTPROCEDURAL STATES 09/16/2019 TARIQ, KJ PRODUCT SCIENTIST Ot Z87.891 PERSONAL HISTORY OF NICOTINE DEPENDENCE 09/16/2019 KJ POTTERP Ot Z87.891 PERSONAL HISTORY OF NICOTINE DEPENDENCE 10/22/2019 KJ POTTERP Ot Z87.891 PERSONAL HISTORY OF NICOTINE DEPENDENCE 10/27/2019 KJ POTTER PRODUCT SCIENTIST Ot Z87.891 PERSONAL HISTORY OF NICOTINE DEPENDENCE 10/27/2019 KJ POTTERP Ot Z87.891 PERSONAL HISTORY OF NICOTINE DEPENDENCE 10/28/2019 KJ POTTERP Ot R91 .8 OTHER NONSPECIFIC ABNORMAL FINDING OF ALLA 10/28/2019 KJ POTTERP Ot Z12 .2 ENCNTR SCREEN FOR MALIGNANT NEOPLASM OF 10/28/2019 KJ POTTERP Ot Z87.891 PERSONAL HISTORY OF NICOTINE DEPENDENCE 11/19/2019 BRAYDEN POTTERA PRODUCT SCIENTIST Ot R91 .8 OTHER NONSPECIFIC ABNORMAL FINDING OF ALLA 11/19/2019 KJ POTTERP Ot Z12 .2 ENCNTR SCREEN FOR MALIGNANT NEOPLASM OF 11/19/2019 KJ POTTERP Ot Z87.891 PERSONAL HISTORY OF NICOTINE DEPENDENCE 12/02/2019 Royce FREGOSO MD Ot R55 SYNCOPE AND COLLAPSE Procedures There is no data. Results Test Result Range RED CELLS LEUKO REDUCED AS1 - 12/04/19 1 7:59 RED CELLS LEUKO REDUCED AS1 I SSUED 12/04/19 1759 NRG Encounters ACCT No. Visit Date/Time Discharge Status Pt. Type Provider Facility Loc./Unit Complaint [id number] 11/10/2018 00:00:00 11/10/2018 23:59: 00 DIS Outpatient KAREN BLISS [id number] 11/06/2018 11:43:00 11/06/2018 23:59: 00 DIS Outpatient KAREN BLISS [id number] 11/29/2016 10:47:00 11/29/2016 23:59: 00 DIS Outpatient KAREN BLISS [id number] 11/28/2019 08:18:00 020 23:59:59 CLS Outpatient Royce FREGOSO MD [facility] CARD NEAR SYNCOPE [id number] 10/27/2019 09:53:00 23:59:59 CLS Outpatient KJ POTTER [facility] RAD LUNG CA SCREENING [id number] 11/15/2018 07:47:00 23:59:59 CLS Preadmit KAREN BLISS MD [facility] REHAB R KNEE TLM;MRI PENDING [id number] 11/02/2018 09:57:00 12:56:00 DIS Emergency INDY DONIS MD [facility] ER FALL - R KNEE / R SHOUL JOSIAS PAIN [id number] 03/18/2017 02:46:00 23:59:59 CLS Preadmit KAREN BLISS MD [facility] REHAB L KNEE ARTHRITIS [id number] 03/06/2017 11:25:00 00:01:00 DIS Outpatient KAREN BLISS MD, [facility] REHAB L KNEE ARTHRITIS [id number] 12/05/2019 13:00:00 P EN Preadmit Royce FREGOSO MD [facility] CARD CAD,DIZZINES,TIA,TOBACCO USE R,NEAR SYNCOPE
== END 2019-12-04 21:28 | disposition expired ==
LOC: EDUNIT# 17:47 → ER 17:51
DX: I46.9 Cardiac arrest, cause unspecified (principal); D64.89 Other specified anemias; Z88.0 Allergy status to penicillin; Z88.8 Allergy status to other drugs, medicaments and biological substances; Z86.010 Personal history of colon polyps
CPT/HCPCS: 36680